=== PATIENT | female | born 1940 | race Hispanic/Latino ===

== ENCOUNTER 2016-11-03 08:00 | Inpatient (IN) | payer MEDICARE ==
[2016-11-03 08:08] VITALS: BMI 34.3
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
[2016-11-03] MEDS ORDERED: Vancomycin 1gm in NS 250ml 250 ML IVPB STA (08:47)
[2016-11-03 09:13] LABS: ADD MANUAL DIFF? NO
[2016-11-03 09:15] LABS: BASO # 0.04 K/mm3 (0.0-2.0); BASO % 1.2 % (0.0-3.0); EOS # 0.3 (0.0-0.7); EOS % 8.1 % (1.5-5.0); GRAN # 1.51 (1.4-6.5); GRAN % 47.1 % (50.0-68.0); LYMPH % 30.8 % (22.0-35.0); MEAN CELL VOLUME 92.7 fL (80.0-105.0); MEAN CORPUSCULAR HEMOGLOBIN 32.6 pg (25.0-35.0); MEAN CORPUSCULAR HGB CONC 35.2 g/dl (31.0-37.0); MEAN PLATELET VOLUME 9.4 fl (7.0-11.0); MONO # 0.4 (0.1-0.6); MONO % 12.8 % (1.0-6.0); PLATELET COUNT 88 10^3/uL (120.0-450.0); RED CELL DISTRIBUTION WIDTH 15.1 % (11.5-14.5); WHITE BLOOD COUNT 3.2 10^3/ul (4.5-11.0)
[2016-11-03 09:26] LABS: ALKALINE PHOSPHATASE 64 U/L (38-133); ALT/SGPT 26 U/L (7-56); AST/SGOT 38 U/L (15-39); BILIRUBIN,TOTAL 2.8 mg/dL (0.2-1.3); BLOOD UREA NITROGEN 35 mg/dL (7-21); CALCIUM 9.1 mg/dL (8.4-10.5); CARBON DIOXIDE 29 mmol/L (21-33); CHLORIDE 98 mmol/L (98-107); GFR AFRICAN-AMERICAN > 60; GLUCOSE,RANDOM 117 mg/dL (70-110); POTASSIUM 3.3 mmol/L (3.6-5.0); SODIUM 136 mmol/L (132-148); TOTAL PROTEIN 6.2 g/dL (5.8-8.3)
[2016-11-03 09:33] LABS: INR 1.11 (0.93-1.08); PARTIAL THROMBOPLASTIN TIME 28.2 Seconds (23.7-30.8)
[2016-11-03 09:38] LABS: TROPONIN I 0.04 ng/mL
[2016-11-03] MEDS ORDERED: Potassium Chloride 20 mEq ER Tab PO STA (10:18)
--- NOTE | 2016-11-03 11:25 | RAD ---
HISTORY: Cough. Technique: Single view portable semi erect @ 10:00 COMPARISON: 07/05/2016. FINDINGS: LUNGS: Pulmonary best congestion without evidence of pulmonary parenchymal abnormality. PLEURA: No significant pleural effusion identified, no pneumothorax apparent. CARDIOVASCULAR: Cardiomegaly, mild CHF. OSSEOUS STRUCTURES: No significant abnormalities. VISUALIZED UPPER ABDOMEN: Normal. OTHER FINDINGS: None. IMPRESSION: Acute CHF.
[2016-11-03] MEDS ORDERED: Influenza Vaccine 45 MCG/0.5 ml IM ONE (13:23)
[2016-11-03] MEDS ORDERED: Pneumococcal 23-Valent Vaccine IM ONE (13:23)
--- NOTE | 2016-11-03 14:32 | US ---
HISTORY: Leg pain and swelling. Evaluate for DVT PHYSICIAN(S): Praveen Augustine MD. TECHNIQUE: Duplex sonography and color-flow Doppler with graded compression were used to evaluate the deep venous systems of both lower extremities. The exam is somewhat limited by edema FINDINGS: The visualized deep venous systems of both lower extremities are sonographically normal and compressible. Normal wave forms and augmentation are seen. There is no sonographic evidence for deep venous thrombosis in the visualized segments of both lower extremities. IMPRESSION: No sonographic evidence for deep venous thrombosis in the visualized segments of both lower extremities.
[2016-11-03] MEDS ORDERED: cefTRIAXone 1 gm 100 ML IVPB SCH (18:00)
--- NOTE | 2016-11-03 18:28 | CARD ---
APPROVED REPORT EKG Measurement Heart [id number] <Conclusion> Sinus tachycardia with occasional premature ventricular complexes Left axis deviation Left ventricular hypertrophy with QRS widening Lateral infarct, age undetermined Abnormal ECG
[2016-11-03] MEDS: Insulin Reg-LOW-Coverage SC SCH (21:45)
[2016-11-03] MEDS: Piperacillin/Tazobact 3.375 gm 100 ML IVPB SCH (21:55)
[2016-11-03] MEDS: MethylPREDNISolone 40 mg Vial IVP SCH (21:56)
[2016-11-03] MEDS: Potassium Chloride 20 mEq ER Tab PO SCH (21:56)
[2016-11-03] MEDS: Tiotropium 18 mcg Cap For Inhalation IH SCH (21:56)
[2016-11-04] MEDS: Acetylcysteine 20% Inhal Soln (4ml) IH SCH ×3 (01:50→21:38)
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
--- NOTE | 2016-11-04 04:44 | CON ---
DATE: 11/03/2016 REFERRING PHYSICIAN: Dr. Rg. REASON FOR CONSULT: Chronic lung disease, cough, shortness of breath, lower extremity edema with adithya lulitis, history of cryptogenic cirrhosis. HISTORY OF PRESENT ILLNESS: This is a 76-year-old female with multiple medical issues, main of which is cryptogenic cirrhosis with portal hypertension, chronic lung disease, pulmonary hypertension, ivy ctant lower extremity edema and cellulitis, also has a severe cardiomyopathy with severe aortic steno sis, hypertension, diabetes, anemia, pancytopenia, thrombocytopenia, coronary artery disease, came in to Emergency Room with cough, shortness of breath and very lethargic, lower extremity diffuse erythe ma, swelling. No hemoptysis, no hematemesis, no hematuria reported. PAST MEDICAL HISTORY: Coronary artery disease, congestive heart failure secondary to severe aortic s tenosis, hypertension, chronic lung disease, diabetes, anemia, history of transfusion, hiatal hernia, depression, coronary artery disease, cardiac catheterization in the past, history of esophagitis, du odenitis, gastritis, recurrent cellulitis of lower extremity. ALLERGIES: None known. SOCIAL HISTORY: Nonsmoker, nondrinker. FAMILY HISTORY: No significant cardiopulmonary disease reported. MEDICATIONS: He is on Aldactone 25 mg twice a day, Dilaudid 0.25 mg q. 4 hours p.r.n., insulin cover age, potassium supplements, Lasix 40 mg twice a day, metoprolol tartrate 12.5 mg daily, Rocephin 1 gr am daily, Spiriva 1 capsule inhaled daily. REVIEW OF SYSTEMS: No headache. Has on and off epistaxis from the last couple of months. Cough, sh ortness of breath. No chest pain. Has increased abdominal girth and ascites. No abdominal pain. S ignificant leg edema, diffuse erythema, tender to touch. NEUROLOGIC: Awake, alert, but lethargic. PHYSICAL EXAMINATION: GENERAL: Sitting side of the bed, mild distress secondary to leg pain and shortness of breath. VITAL SIGNS: Temp is 98, heart rate is 98, respiratory rate is 22, blood pressure 114/49, pulse ox 9 6% on room air. HEENT: Moist mucous membranes. Small oral cavity. Crowded airway. NECK: Supple. No JVD. LUNGS: Has crackles at the bases, prolonged expiratory phase. HEART: S1 and S2. Positive murmur. ABDOMEN: Has ascites, abdominal wall edema. EXTREMITIES: Diffuse erythema, tender to touch, and swelling. NEUROLOGIC: Awake, alert, follows simple commands. LABORATORY DATA: Shows hemoglobin 10.2, hematocrit 39.0, WBC 3.2, platelet count is 88. INR 1.1, PT T is 28. Sodium 136, potassium 3.3, chloride 98, bicarbonate 29, BUN 35, creatinine 1.0, glucose is 117, calcium is 9.1, total bili 2.8, AST 38, ALT 26, alkaline phosphatase 64. LDH 756. Troponin is 0.04, proBNP 666, albumin is 3.1. Venous Doppler of lower extremity shows no DVT of the lower extrem ities. Chest x-ray done showed congestion and infiltrate. IMPRESSION AND PLAN: Chronic obstructive lung disease, cardiomyopathy with severe aortic stenosis, c ongestive heart failure, sleep apnea syndrome noncompliant with CPAP, pulmonary hypertension, crypto genic cirrhosis with pulmonary hypertension, ascites, lower extremity edema, may have cellulitis of b oth lower extremities, thrombocytopenia, esophagitis, duodenitis. I agree with Dr. Rg with the present management. Will add Zosyn covering cellulitis of the lower extremity. Increase Lasix 20 mg q. 8 hours. Inhaled bronchodilator. Solu-Medrol 20 mg q. 8 hours, CPAP while sleeping. Gastr ic prophylaxis, will get JON stockings large to lower extremity, cannot anticoagulate because of his tory of thrombocytopenia, cirrhotic, recurrent epistaxis. Follow up labs in the morning. Overall, p oor prognosis. Thank you and we will follow with you. Pablo Cantor MD cc: [id number] TT: 11/04/2016 04:43:44 Confirmation # [id number] Dictation # [id number] kn
[2016-11-04] MEDS: Piperacillin/Tazobact 3.375 gm 100 ML IVPB SCH ×3 (06:04→22:22)
[2016-11-04] MEDS: MethylPREDNISolone 40 mg Vial IVP SCH ×3 (06:04→22:19)
[2016-11-04] MEDS: Potassium Chloride 20 mEq ER Tab PO SCH ×3 (06:05→22:18)
[2016-11-04] MEDS: Pantoprazole 40 mg EC Tab PO SCH (06:05)
[2016-11-04 07:38] LABS: HEMATOCRIT 29.4 % (36.0-48.0); MEAN CELL VOLUME 92.7 fL (80.0-105.0); MEAN CORPUSCULAR HEMOGLOBIN 32.2 pg (25.0-35.0); MEAN CORPUSCULAR HGB CONC 34.7 g/dl (31.0-37.0); MEAN PLATELET VOLUME 9.4 fl (7.0-11.0); RED CELL DISTRIBUTION WIDTH 14.8 % (11.5-14.5); WHITE BLOOD COUNT 3.3 10^3/ul (4.5-11.0)
[2016-11-04 07:51] LABS: ALKALINE PHOSPHATASE 55 U/L (38-133); ALT/SGPT 22 U/L (7-56); AST/SGOT 39 U/L (15-39); BILIRUBIN,TOTAL 2.2 mg/dL (0.2-1.3); BLOOD UREA NITROGEN 32 mg/dL (7-21); CALCIUM 9.1 mg/dL (8.4-10.5); CARBON DIOXIDE 30 mmol/L (21-33); CHLORIDE 98 mmol/L (95-110); GFR AFRICAN-AMERICAN > 60; GLUCOSE,RANDOM 168 mg/dL (70-110); POTASSIUM 3.9 mmol/L (3.6-5.0); SODIUM 138 mmol/L (132-148); TOTAL PROTEIN 5.8 g/dL (5.8-8.3)
[2016-11-04] MEDS: Insulin Reg-LOW-Coverage SC SCH ×4 (08:18→22:07)
[2016-11-04] MEDS: Budesonide 0.5 mg/2 ml Inhal Susp UD IH SCH ×2 (08:43→21:37)
[2016-11-04] MEDS: Arformoterol 15 mcg/2 ml Inh Sol IH SCH ×2 (08:43→21:38)
[2016-11-04] MEDS ORDERED: Potassium Chloride 20 mEq ER Tab PO SCH (10:00)
--- NOTE | 2016-11-04 10:49 | CON ---
DATE: 11/04/2016 REASON FOR CONSULTATION: Cardiac evaluation, admitted with swelling of the leg and pain, history of coronary artery disease. BRIEF CLINICAL HISTORY: A 76-year-old female with a past medical history significant for congestive heart failure, cirrhosis of the liver, COPD, asthma, coronary artery disease. Admitted with a compla int of swelling of the leg and redness. Denies any chest pain, denies any shortness of breath, denie s any palpitation. PAST MEDICAL HISTORY: Significant for coronary artery disease, status post PTCA 2008, hypertension, hyperlipidemia, chronic venous stasis, chronic leg edema, COPD, cirrhosis and thrombocytopenia. PREVIOUS CARDIAC WORKUP: The patient had a cardiac catheterization and angioplasty in 04/2009, histor y of repeat echo last admission, ejection 65%-70%, aortic valve area 0.6 consistent with severe aorti c stenosis, but looks like moderate to severe, though valve area calculated 0.6, moderate stenosis by looks valve area with a calculated area , but it looks, at the most, moderate to severe aortic stenosis, diastolic dysfunction. Last admission, lengthy discussion was done for TAVR. The patient opted for medical treatment. Discussion done with the family and the sister. SOCIAL HISTORY: Denies smoking. Denies any history of alcohol abuse. CURRENT MEDICATIONS: The patient is taking at home spironolactone 25 mg, Spiriva, potassium chloride , metoprolol 12.5 and Lasix 40 three times a day. REVIEW OF SYSTEMS: As per HPI. PHYSICAL EXAMINATION: VITAL SIGNS: Temperature afebrile, heart rate 97, blood pressure 112/60. HEENT: PERRLA. Extraocular muscles intact. NECK: Supple. No carotid bruits. No thyromegaly. CHEST: Clear to auscultation. HEART: S1, S2 regular. ABDOMEN: Soft. EXTREMITIES: Clubbing, cyanosis negative. BLOOD WORKUP: WBC 3.3, hemoglobin 10.2, hematocrit 29.4, platelet count 77. Chemistry shows sodium 130, potassium 3.9, chloride , carbon dioxide 30, anion gap of 14, BUN 32, creatinine 1.0. Tota l bilirubin 2.2. BNP is 666, marginally increased. IMPRESSION: Cellulitis of lower extremity, thrombocytopenia, cirrhosis of the liver, hypoalbuminemia 2.9, mild, which was not present on admission yesterday, anemia, thrombocytopenia, coronary artery d isease, severe aortic stenosis. Refused transcatheter aortic valve replacement workup. Last echo, e jection fraction 65%-70% dated 10/12/2015, ejection fraction 65%-70%, grade II diastolic dysfunction, moderately calcified, mild to moderate aortic regurgitation, moderate to severe valvular aortic steno sis, peak gradient 76 mmHg. The patient's EKG yesterday showed sinus tachycardia with occasional premature atrial complex. RECOMMENDATIONS: Continue diuretics started by Dr. Cantor. Continue low-dose beta-kirby as blood pressures tolerated. Continue antibiotic. We will follow with you. We will get the lipid profile, TSH, hemoglobin A1c. Thank you, Dr. Rg, for providing us the opportunity in taking care of the patient. Clinically, ernie joaquin is not in heart failure. Probably, this leg edema is multifactorial secondary to cirrhosis, a scites, low albumin level. We will follow with you. Pablo Guillermo MD cc: [id number] TT: 11/04/2016 10:48:44 Confirmation # [id number] Dictation # [id number] en
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
[2016-11-04] MEDS: HYDROmorphone 0.5 mg/0.5 ml ISec IVP PRN ×2 (15:32→22:20)
[2016-11-04] MEDS: Clotrimazole/Betamethasone Cream(15 gm) TOP SCH (18:14)
--- NOTE | 2016-11-04 18:34 | PN ---
DATE: 11/04/2016 REFERRING PHYSICIAN: Dr. Rg SUBJECTIVE: The patient is lying in the bed, head at 45 degrees. Feels better. More smiling. Tole rated CPAP well. Decreased cough. Decreased shortness of breath. No nausea, no vomiting, no abdomi nal pain. Decreased leg swelling. Received Ming wraps on the lower extremity. OBJECTIVE: GENERAL: No acute distress. VITAL SIGNS: Temp is 98, heart rate is 85, respiratory rate is 18, blood pressure 119/52, pulse ox 9 6% on room air. HEENT: Moist mucous membranes. Crowded airway. Mallampati score is 4. NECK: Supple. No JVD. LUNGS: Has crackles at the bases, scattered rhonchi. HEART: S1 and S2. ABDOMEN: Soft, nontender, nondistended. EXTREMITIES: Decreased erythema, still has edema, but has decreased since yesterday. NEUROLOGIC: Awake, alert, follows simple command. MEDICATIONS: She is on Mucomyst 20% inhaled q.12 hours, Aldactone 25 mg twice a day, Brovana 15 mcg inhaled twice a day, Dilaudid 0.25 mg q.4 hours p.r.n., doxycycline 100 mg twice a day, insulin cover age, potassium 20 mEq q.8 hours, Lasix 80 mg IV q.8 hours, metoprolol tartrate 12.5 mg daily, Lotriso ne cream affected area twice a day, Protonix 40 mg daily, Pulmicort inhaled twice a day, Solu-Medrol 20 mg q.8 hours, Spiriva 1 capsule inhaled daily, Zosyn 3.375 grams q.8 hours. LABORATORY DATA: Shows hemoglobin 10.2, hematocrit 29.4, WBC 3.3, platelet is 77,000. Sodium 138, p otassium 3.9, chloride 98, bicarbonate 30, BUN 32, creatinine 1.0, glucose 168, calcium 9.1, total bi li 2.2, AST 39, ALT 22, alk phos is 55. Albumin is 2.9. MICROBIOLOGY: Blood culture has been negative. IMPRESSION AND PLAN: Cardiomyopathy with severe aortic stenosis, coronary artery disease, heart fail ure, chronic obstructive lung disease, sleep apnea syndrome, noncompliant with the continuous positiv e airway pressure but last night did use her continuous positive airway pressure though; pulmonary hy pertension, cryptogenic cirrhosis, portal hypertension, ascites, lower extremity recurrent edema and cellulitis, history of pancytopenia, esophagitis, duodenitis. Pulmonary point of view, well improved since yesterday. Continue continuous positive airway pressure. Continue intravenous and inhaled br onchodilator. Continue antibiotics. 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 Gastric prophylaxis. N o chemical deep venous thrombosis prophylaxis because of recurrent epistaxis and thrombocytopenia. F ollow up electrolytes in the morning. Fall precaution. Podiatry followup. Thank you and we will follow with you. Pablo Cantor MD cc: [id number] TT: 11/04/2016 18:33:39 Confirmation # [id number] Dictation # [id number] sn
--- NOTE | 2016-11-04 19:59 | PN ---
DATE: 11/04/2016 The patient is a 76-year-old female. The patient seen and examined on the bedside, sitting on the bedside, feeling a little bit better. Still having pain on the soles of the feet. Tolerated CPAP. Decreasing cough, decreasing shortness of breath. No nausea, no vomiting. No chest pain, no fever, no chills. Swelling of the legs is getting better. PHYSICAL EXAMINATION: VITAL SIGNS: Temperature 98, heart rate 85, respiratory rate 18, blood pressure 119/52, pulse oximetry 96% on room air. HEENT: Head normocephalic, atraumatic. Eyes: PERRLA. Extraocular muscles intact. Conjunctivae pink. Eyelids unremarkable. Nose patent. Mucous membranes moist. NECK: Supple. No carotid bruit, no JVD, no thyromegaly. LUNGS: Have crackles at the bases, scattered rhonchi. HEART: S1 and S2 positive. ABDOMEN: Soft, nontender, no organomegaly. EXTREMITIES: Decreased erythema. Still edematous, but still warm and red, getting better slowly. NEUROLOGIC: The patient is awake, alert, follows simple commands, oriented x 3 , moving all 4 extremities. LABORATORIES: Hemoglobin 10.2, hematocrit 29.4, white blood cells 3.3, platelets 77. Sodium 138, potassium 3.9, BUN 32, creatinine 1.0, glucose noted Total bilirubin 2.2, AST 39, ALT 22. ASSESSMENT AND PLAN: The patient is a 76-year-old lady, cardiomyopathy with severe aortic stenosis, coronary artery disease, heart failure, chronic obstructive lung disease, sleep apnea syndrome, noncompliant with continuous positive pressure at home. Last night, she used that, feeling better. Cryptogenic cirrhosis, portal hypertension, ascites, lower extremity edema, cellulitis of the legs, peripheral neuropathy, pancytopenia, esophagitis, duodenitis, gastritis. The patient is improving very slowly. Podiatry is on the case. Pulmonary and work force advisor is on the case. Continue same intravenous and inhaled bronchodilators. Continue antibiotics. Gastrointestinal and deep venous thrombosis prophylaxis. The patient is seen by the podiatry, Dr. Richard, [place]. Continue acetylcysteine, Aldactone, Lasix, aspirin, Dilaudid for leg pain, doxycycline, metoprolol, clotrimazole/ betamethasone locally, Protonix for gastrointestinal prophylaxis, methylprednisolone lower doses from by Khushbu Turner, got dose of vancomycin and piperacillin-tazobactam. Will follow up. Kristin Rg MD cc: [id number] TT: 11/04/2016 19:58:11 Confirmation # [id number] Dictation # [id number] en MTDD
[2016-11-04] MEDS: Tiotropium 18 mcg Cap For Inhalation IH SCH (22:21)
[2016-11-05] MEDS: Potassium Chloride 20 mEq ER Tab PO SCH ×3 (05:48→21:06)
[2016-11-05] MEDS: Pantoprazole 40 mg EC Tab PO SCH (05:49)
[2016-11-05] MEDS: Piperacillin/Tazobact 3.375 gm 100 ML IVPB SCH ×3 (05:49→21:03)
[2016-11-05] MEDS: MethylPREDNISolone 40 mg Vial IVP SCH ×3 (05:49→21:04)
[2016-11-05] MEDS: Arformoterol 15 mcg/2 ml Inh Sol IH SCH ×2 (07:46→21:00)
[2016-11-05] MEDS: Acetylcysteine 20% Inhal Soln (4ml) IH SCH ×2 (07:47→21:00)
[2016-11-05] MEDS: Budesonide 0.5 mg/2 ml Inhal Susp UD IH SCH ×2 (07:47→21:00)
[2016-11-05] MEDS: Insulin Reg-LOW-Coverage SC SCH ×4 (08:21→23:29)
[2016-11-05] MEDS: HYDROmorphone 0.5 mg/0.5 ml ISec IVP PRN ×2 (08:25→14:01)
--- NOTE | 2016-11-05 08:37 | CP.PCM.PN ---
<SandeepJerry - Last Filed: 11/05/16 09:53> Subjective - Date & Time of Evaluation Date of Evaluation: 11/05/16 Time of Evaluation: 07:40 - Subjective Subjective: 76 year old female with history of bilateral lower extremity cellulitis seen at bedside concerning bilateral lower extremity cellulitis. Patient states that she has mild pain in her legs, but notes her overall conditon has improved as there is un remakrable redness, and a large decrease in her leg swelling. Pt has new pedal compliant is mayes in the "balls of her feet" as she attempt to walk. She grades this pain as a 4/10 at peak levels localized to the metatarsal head area. She has no new pedal complaints a this time. She denies nausea, fever, chills, shortness of breath, chest pain. Objective - Vital Signs/Intake and Output Vital Signs (last 24 hours): Temp Pulse Resp BP Pulse Ox 97.8 F 60 20 101/54 L 98 11/05/16 06:54 11/05/16 06:54 11/05/16 06:54 11/05/16 06:54 11/05/16 06:54 Intake and Output: 11/05/16 11/05/16 06:59 18:59 Intake Total 540 Output Total 800 Balance -260 - Medications Medications: Current Medications Acetylcysteine (Acetylcysteine 20%) 4 ml IH [id number] [facility] Last Admin: 11/05/16 07:47 Dose: 4 ml Arformoterol Tartrate (Brovana) 15 mcg IH [id number] [facility] Last Admin: 11/05/16 07:46 Dose: 15 mcg Betamethasone/Clotrimazole (Lotrisone) 0 gm TOP BID [facility] Last Admin: 11/04/16 18:14 Dose: Not Given Budesonide (Pulmicort Respules) 0.5 mg IH [id number] [facility] Last Admin: 11/05/16 07:47 Dose: 0.5 mg Furosemide (Lasix) 80 mg IVP Q8 [facility] Last Admin: 11/05/16 05:49 Dose: Not Given Hydromorphone HCl (Dilaudid) 0.25 mg IVP Q4H PRN PRN Reason: Pain, moderate (4-7) Last Admin: 11/05/16 08:25 Dose: 0.25 mg Piperacillin Sod/Tazobactam Sod (Zosyn 3.375 In Ns 100ml) 100 mls @ 200 mls/hr IVPB Q8 [facility] PRN Reason: Protocol Stop: 11/10/16 22:01 Last Admin: 11/05/16 05:49 Dose: 200 mls/hr Doxycycline Hyclate 100 mg/ (Sodium Chloride) 100 mls @ 100 mls/hr IVPB Q12 [facility]LEXANDRA PRN Reason: Protocol Stop: 11/11/16 10:01 Last Admin: 11/04/16 22:21 Dose: 100 mls/hr Insulin Human Regular (Humulin R Low) 0 units SC ACHS [facility] PRN Reason: Protocol Last Admin: 11/05/16 08:21 Dose: 1 units Methylprednisolone (Solu-Medrol) 20 mg IVP Q8 [facility] Last Admin: 11/05/16 05:49 Dose: 20 mg Metoprolol Tartrate (Lopressor) 12.5 mg PO DAILY [facility] Last Admin: 11/04/16 09:39 Dose: 12.5 mg Pantoprazole Sodium (Protonix Ec Tab) 40 mg PO 0630 [facility] Last Admin: 11/05/16 05:49 Dose: 40 mg Potassium Chloride (K-Dur 20 Meq Er Tab) 20 meq PO Q8 [facility] Last Admin: 11/05/16 05:48 Dose: 20 meq Spironolactone (Aldactone) 25 mg PO BID [facility] Last Admin: 11/04/16 18:12 Dose: 25 mg Tiotropium [place] (Spiriva) 18 mcg IH HS [facility] Last Admin: 11/04/16 22:21 Dose: 18 mcg - Labs Labs: 11/04/16 07:00 11/04/16 07:00 PT 12.0 Seconds (9.9-11.8) H 11/03/16 09:12 INR 1.11 (0.93-1.08) H 11/03/16 09:12 APTT 28.2 Seconds (23.7-30.8) 11/03/16 09:12 - Constitutional Appears: Well, Non-toxic, No Acute Distress - Extremities Exam Additional comments: VASC: lightly palpable pedal pulses b/l, TG wnl, CFT < 3 sec to all digits NEURO: grossly diminished DERM: +2 pitting edema of b/l legs. Absence of erythema of legs b/l. No open lesions, no fluctuance, no purulence, no malodor. Plantar 3rd metatarsal head region hyperkeratotic lesions noted, right greater than left, with pain on direct palpation not on lateral compression. MUSC: mild pain to palpation of legs b/l - Neurological Exam Neurological Exam: Alert, Awake, Oriented x3 - Psychiatric Exam Psychiatric exam: Normal Affect, Normal Mood Assessment and Plan - Assessment and Plan (Free Text) Assessment: 76 year old female with 1) bilateral lower extremity cellulitis 2) plantar forefoot callouses Plan: Patient evaluated and treated at bedside with attending Dr. Neal present. Labs and chart reviewed; afebrile. WBC 6.3 Applied DSD and PEGGY to b/l lower extremities, Lotrisone cream not available at this time. Continue IV abx as per ID Podiatry will continue to monitor while patient remains in house <Timothy Neal - Last Filed: 11/08/16 12:18> Objective - Vital Signs/Intake and Output Vital Signs (last 24 hours): Temp Pulse Resp BP Pulse Ox 98.5 F 88 17 110/60 97 11/08/16 06:00 11/08/16 09:22 11/08/16 06:00 11/08/16 09:22 11/08/16 06:00 - Medications Medications: Current Medications Acetylcysteine (Acetylcysteine 20%) 4 ml IH [id number] [facility] Last Admin: 11/08/16 09:59 Dose: 4 ml Arformoterol Tartrate (Brovana) 15 mcg IH [id number] [facility] Last Admin: 11/08/16 09:59 Dose: 15 mcg Betamethasone/Clotrimazole (Lotrisone) 0 gm TOP BID [facility] Last Admin: 11/08/16 09:23 Dose: 1 applic Budesonide (Pulmicort Respules) 0.5 mg IH [id number] [facility] Last Admin: 11/08/16 09:59 Dose: 0.5 mg Furosemide (Lasix) 80 mg IVP Q8 [facility] Last Admin: 11/08/16 06:32 Dose: Not Given Hydromorphone HCl (Dilaudid) 0.25 mg IVP Q4H PRN PRN Reason: Pain, moderate (4-7) Last Admin: 11/08/16 04:08 Dose: 0.25 mg Piperacillin Sod/Tazobactam Sod (Zosyn 3.375 In Ns 100ml) 100 mls @ 200 mls/hr IVPB Q8 [facility]DR[facility] PRN Reason: Protocol Stop: 11/10/16 22:01 Last Admin: 11/08/16 06:25 Dose: 200 mls/hr Doxycycline Hyclate 100 mg/ (Sodium Chloride) 100 mls @ 100 mls/hr IVPB Q12 [facility]DR[facility] PRN Reason: Protocol Stop: 11/11/16 10:01 Last Admin: 11/08/16 10:16 Dose: 100 mls/hr Insulin Human Regular (Humulin R Low) 0 units SC ACHS [facility]LEXANDRA PRN Reason: Protocol Last Admin: 11/08/16 12:11 Dose: 2 units Methylprednisolone (Solu-Medrol) 20 mg IVP Q12 [facility] Last Admin: 11/08/16 09:24 Dose: 20 mg Metoprolol Tartrate (Lopressor) 12.5 mg PO DAILY [facility] Last Admin: 11/08/16 09:22 Dose: 12.5 mg Pantoprazole Sodium (Protonix Ec Tab) 40 mg PO 0630 [facility] Last Admin: 11/08/16 06:24 Dose: 40 mg Potassium Chloride (K-Dur 20 Meq Er Tab) 20 meq PO Q8 [facility] Last Admin: 11/08/16 06:24 Dose: 20 meq Spironolactone (Aldactone) 25 mg PO BID [facility] Last Admin: 11/08/16 09:21 Dose: 25 mg Tiotropium [place] (Spiriva) 18 mcg IH HS [facility] Last Admin: 11/07/16 22:23 Dose: Not Given - Labs Labs: 11/07/16 06:00 11/08/16 06:30 PT 12.0 Seconds (9.9-11.8) H 11/03/16 09:12 INR 1.11 (0.93-1.08) H 11/03/16 09:12 APTT 28.2 Seconds (23.7-30.8) 11/03/16 09:12 Attending/Attestation - Attestation I have personally seen and examined this patient.: Yes I have fully participated in the care of the patient.: Yes I have reviewed all pertinent clinical information, including history, physical exam and plan: Yes
[2016-11-05 09:34] LABS: ADD MANUAL DIFF? NO
[2016-11-05 09:50] LABS: BILIRUBIN,TOTAL 1.5 mg/dL (0.2-1.3); CALCIUM 8.7 mg/dL (8.4-10.5); MAGNESIUM 1.8 mg/dL (1.7-2.2); PHOSPHOROUS 3.4 mg/dL (2.5-4.5); TOTAL PROTEIN 5.5 g/dL (5.8-8.3)
[2016-11-05 09:53] LABS: BASO # 0.01 K/mm3 (0.0-2.0); BASO % 0.2 % (0.0-3.0); GRAN # 5.52 (1.4-6.5); GRAN % 87.6 % (50.0-68.0); HEMATOCRIT 26.6 % (36.0-48.0); LYMPH # 0.4 (1.2-3.4); LYMPH % 6.2 % (22.0-35.0); MEAN CELL VOLUME 93.3 fL (80.0-105.0); MEAN CORPUSCULAR HEMOGLOBIN 32.6 pg (25.0-35.0); MEAN PLATELET VOLUME 9.6 fl (7.0-11.0); MONO # 0.4 (0.1-0.6); PLATELET COUNT 74 10^3/uL (120.0-450.0); RED CELL DISTRIBUTION WIDTH 14.9 % (11.5-14.5); WHITE BLOOD COUNT 6.3 10^3/ul (4.5-11.0)
[2016-11-05] MEDS: Clotrimazole/Betamethasone Cream(15 gm) TOP SCH ×2 (09:58→17:16)
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
--- NOTE | 2016-11-05 19:30 | PN ---
DATE: 11/05/2016 REFERRING PHYSICIAN: Dr. Rg SUBJECTIVE: The patient is lying in the bed, head at 45 degrees, sleepy, arousable. Claims that cou ld not sleep well last night. No headache, no rhinitis. Mild cough. No nausea, no vomiting, no alec rrhea. Still has leg swelling and erythema, has PEGGY wraps of lower extremities. OBJECTIVE: GENERAL: No acute distress. VITAL SIGNS: Temperature is 98, heart rate is 79, respiratory rate is 18, blood pressure 105/50, pul se ox 95% on 2 liters nasal cannula. HEENT: Moist mucous membrane. Crowded airway. NECK: Supple. No JVD. LUNGS: Have a fair airflow with scattered rhonchi. HEART: S1 and S2. ABDOMEN: Soft, nontender. No organomegaly. EXTREMITIES: There is edema, erythema, has PEGGY wraps on lower extremities. NEUROLOGIC: Sleepy, arousable, follows simple command. MEDICATIONS: She is on Mucomyst 20% inhaled twice a day, Aldactone 25 mg twice a day, Brovana 15 mcg inhaled twice a day, Dilaudid 0.25 mg q. 4 hours p.r.n., doxycycline 100 mg twice a day, insulin cov erage, potassium 20 mEq q. 8 hours, Lasix 80 mg IV q. 8 hours, metoprolol tartrate 12.5 mg daily, Lot risone affected area twice a day, Protonix 40 mg daily, Pulmicort inhaled twice a day, Solu-Medrol 20 mg q. 8 hours, Spiriva 1 capsule inhaled daily, Zosyn 3.375 grams q. 8 hours. LABORATORY DATA: Shows hemoglobin 9.3, hematocrit 26.6, WBC 6.3, platelet count is 74. Sodium 133, potassium 4.0, chloride 96, bicarbonate 29, BUN 40, creatinine 1.2, glucose , calcium 8.7, phosp horus 3.4, magnesium 1.8, total bilirubin 1.5, AST 32, ALT 25, alkaline phosphatase is 44, albumin is 2.7. TSH . MICROBIOLOGY: Blood culture has been negative. IMPRESSION AND PLAN: Cardiomyopathy with severe aortic stenosis, coronary artery disease, heart fail ure, chronic obstructive lung disease, sleep apnea syndrome, noncompliant with CPAP usually, pulmonar y hypertension, cryptogenic cirrhosis, portal hypertension, ascites, lower extremity recurrent edema and cellulitis, pancytopenia, esophagitis, duodenitis. Pulmonary point of view, encourage BiPAP use. Continue bronchodilator. Keep head elevated at 45 degrees. Continue diuretics. Continue potassiu m. Follow up electrolytes. Decrease Solu-Medrol to 20 q. 12 hours. Follow up labs in the morning. Thank you and we will follow with you. Pablo Cantor MD cc: [phone] TT: 11/05/2016 19:30:17 Confirmation # [id number] Dictation # [id number] en
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
--- NOTE | 2016-11-05 20:10 | PN ---
DATE: 11/05/2016 The patient is in room 377, bed 2. REASON FOR CONSULTATION AND FOLLOWUP: Swelling of legs, history of coronary artery disease. HISTORY OF PRESENT ILLNESS: A 76-year-old female with past medical history significant for congestiv e heart failure, cirrhosis of liver, COPD, asthma, coronary artery disease, admitted with complaint o f swelling of the legs and redness. Denies any chest pain, shortness of breath, or palpitation. The patient now lying flat and still complains of pain in the legs. Denies chest pain or palpitation. PHYSICAL EXAMINATION: VITAL SIGNS: Blood pressure 105/50, respirations 18, pulse 79, temperature 97.7. HEAD: Normocephalic. EYES: Pupils normal. Conjunctivae are slightly pale. NECK: JVP low. Carotids equal. THORAX: AP diameter normal. LUNGS: Clear. CARDIOVASCULAR: S1, S2, systolic murmur, no rub. ABDOMEN: Soft, nontender. Bowel sounds normal. EXTREMITIES: The patient had legs wrapped up to make edema of legs improve. There is no clubbing, n o cyanosis. LABORATORY DATA: Shows WBC 6.3, hemoglobin 9.3, hematocrit 26.6, platelets 74. Sodium 133, potassiu m 4.0, BUN 40, creatinine 1.2, random glucose 155, phosphorous 3.4, calcium 8.7, magnesium 1.8. AST, ALT normal. Total protein 5.5, albumin 2.7. TSH 0.45. DIAGNOSES: Cellulitis of lower extremity, thrombocytopenia, cirrhosis of liver, hypoalbuminemia, ane tomasz, coronary artery disease, severe aortic stenosis. On the last echo, ejection fraction was 65%-70% . Echo was done on 10/12/2015, grade II diastolic dysfunction, moderately calcified, mild to moderate aortic regurgitation, moderate to severe valvular aortic stenosis, peak gradient 76 mmHg. RECOMMENDATION AND PLAN: The patient previously had refused transcatheter aortic valve replacement. Will continue spironolactone 25 b.i.d., doxycycline hyclate 100 mg IV q. 12 hours, potassium 20 mEq q. 8 hours, furosemide 80 IV q. 8 hours, Protonix 40 daily, Solu-Medrol 20 mg IV q. 12 hours, piperac illin, tazobactam 3.375 mg IV, grams IV q. 8 hours. We will continue this therapy and we will follow with you. Pablo Shah MD cc: [id number] TT: 11/05/2016 20:10:02 Confirmation # [id number] Dictation # [id number] rn
[2016-11-05] MEDS: Tiotropium 18 mcg Cap For Inhalation IH SCH (22:25)
[2016-11-06] MEDS: Potassium Chloride 20 mEq ER Tab PO SCH ×3 (05:45→22:40)
[2016-11-06] MEDS: Piperacillin/Tazobact 3.375 gm 100 ML IVPB SCH ×3 (05:46→22:42)
[2016-11-06] MEDS: Pantoprazole 40 mg EC Tab PO SCH (05:46)
[2016-11-06] MEDS: Arformoterol 15 mcg/2 ml Inh Sol IH SCH ×2 (07:33→20:45)
[2016-11-06] MEDS: Budesonide 0.5 mg/2 ml Inhal Susp UD IH SCH ×2 (07:33→20:45)
[2016-11-06] MEDS: Acetylcysteine 20% Inhal Soln (4ml) IH SCH ×2 (07:34→20:45)
[2016-11-06] MEDS: Insulin Reg-LOW-Coverage SC SCH ×4 (08:19→22:40)
[2016-11-06 08:34] LABS: BILIRUBIN,TOTAL 1.5 mg/dL (0.2-1.3); CALCIUM 8.9 mg/dL (8.4-10.5); MAGNESIUM 1.9 mg/dL (1.7-2.2); PHOSPHOROUS 3.3 mg/dL (2.5-4.5); POTASSIUM 3.7 mmol/L (3.6-5.0); TOTAL PROTEIN 5.7 g/dL (5.8-8.3)
--- NOTE | 2016-11-06 09:32 | PN ---
DATE: 11/06/2016 The patient is in room 377, bed 2. REASON FOR CONSULTATION AND FOLLOWUP: Swelling of legs, history of coronary artery disease. HISTORY OF PRESENT ILLNESS: A 76-year-old female with a past medical history significant for congest magalis heart failure, cirrhosis of liver, COPD, asthma, coronary artery disease. Admitted with complain t of swelling of legs and redness of the legs. The patient denies any chest pain, shortness of breat h. The patient lying comfortably, without cardiac symptoms. PHYSICAL EXAMINATION: VITAL SIGNS: Blood pressure 91/54, respirations 19, pulse 86, temperature 97.7. HEAD: Normocephalic. EYES: Pupils normal. Conjunctivae slightly pale. NECK: JVP low. Carotid equal. THORAX: AP diameter normal. LUNGS: Clear. CARDIOVASCULAR: S1 and S2, ejection systolic murmur grade III/. No rub. ABDOMEN: Soft, no tenderness, no organomegaly. EXTREMITIES: No clubbing, no cyanosis. Edema of legs is getting less. LABORATORY DATA: WBC 6.3, hemoglobin 9.3, hematocrit 26.6, platelets 74. Sodium 135, potassium 3.7, BUN 47, creatinine 1.2, random glucose 130. Calcium, phosphorus, magnesium normal. Total bilirubin 1.5. AST, ALT normal. Total protein 5.7, albumin 2.9. DIAGNOSES: Cellulitis of lower extremities, thrombocytopenia, cirrhosis of liver, hypoalbuminemia, a nemia, coronary artery disease, severe aortic stenosis. Echo on 10/12/2015 showed severe aortic steno sis, grade II diastolic dysfunction, mild to moderate aortic regurgitation, moderate to severe valvul ar aortic stenosis, peak gradient 76 mmHg. PLAN: The patient's edema in legs is improving with present therapy. The patient previously had ref used transcatheter aortic valve replacement. Continue Aldactone 25 b.i.d., vibramycin 100 mg q. 12 h ours, potassium 20 mEq p.o. q. 8 hours, furosemide 80 mg q. 8 hours, metoprolol tartrate 12.5 mg p.o. daily, Protonix 40 daily, Solu-Medrol 20 mg IV q. 12 hours, piperacillin/tazobactam 3.375 gram IV q. 8 hours. We will follow with you. Pablo Shah MD cc: [id number] TT: 11/06/2016 09:30:52 Confirmation # [id number] Dictation # [id number] en
[2016-11-06] MEDS: MethylPREDNISolone 40 mg Vial IVP SCH ×2 (10:43→22:41)
[2016-11-06] MEDS: Clotrimazole/Betamethasone Cream(15 gm) TOP SCH ×2 (10:44→18:15)
--- NOTE | 2016-11-06 11:22 | PN ---
DATE: 11/06/2016 The patient is in bed. No acute distress, nontoxic. PHYSICAL EXAMINATION: VITAL SIGNS: Temperature is 97, blood pressure is 91/50, respiratory rate of 16. HEENT: Unremarkable. NECK: Supple. LUNGS: Decreased breath sounds. HEART: Normal S1, S2. ABDOMEN: Soft, nontender. LABORATORY DATA: Reveals the patient's white count is 6.3, hemoglobin 9, platelets of 74. Chemistri es reveal the BUN is 47, creatinine of 1.2. Blood cultures are negative. ASSESSMENT AND PLAN: This is a 76-year-old with sepsis secondary to bilateral lower extremity skin a nd skin soft tissue infection and bilateral lower extremity cellulitis, hypertension, diabetes, chron ic obstructive pulmonary disease, coronary artery disease, depression on doxycycline, on Zosyn day #3 . workup still pending. Review of the orders reveals the doxycycline and Zosyn to be active. Abram Benitez MD cc: [id number] TT: 11/06/2016 11:21:07 Confirmation # [id number] Dictation # [id number] mn
[2016-11-06] MEDS: HYDROmorphone 0.5 mg/0.5 ml ISec IVP PRN ×2 (14:15→22:39)
--- NOTE | 2016-11-06 18:54 | PN ---
DATE: 11/06/2016 REFERRING PHYSICIAN: Dr. Rg. SUBJECTIVE: She is out of bed to chair. Her [id number] is at the bedside. Night was unremarkabl e, did not use CPAP. No headaches, no rhinitis, mild cough. No nausea, no vomiting, no diarrhea. D ecreased leg swelling and leg edema. Has Ming wraps of the lower extremities. OBJECTIVE: GENERAL: In no acute distress. VITAL SIGNS: Temp is 98, heart rate is 90, respiratory rate is 20, blood pressure 114/46, pulse ox 9 7% on 2 liter nasal cannula. HEENT: Moist mucous membranes. Crowded airway. NECK: Supple. No JVD. LUNGS: Has a better airflow with a few rhonchi. HEART: S1, S2 with murmur. ABDOMEN: Soft, nontender. No organomegaly. EXTREMITIES: Decreased leg edema, decreased erythema, has Ming wraps. NEUROLOGIC: Awake, alert, follows simple commands. MEDICATIONS: The patient is on Acetylcysteine 20% 4 mL inhaled twice a day, Aldactone 25 mg twice a day, Brovana 15 mcg inhaled twice a day, Dilaudid 0.25 mg q.4 hours p.r.n., doxycycline 100 mg twice a day, potassium 20 mEq q.8 hours, Lasix 80 mg IV q.8 hours, metoprolol tartrate 12.5 mg daily, Lotri sone cream at affected area twice a day, Protonix 40 mg daily, Pulmicort inhaled twice a day, Solu-Me drol is at 20 mg q.12 hours, Spiriva 1 capsule inhaled daily, Zosyn 3.375 grams IV q.8 hours. LABORATORY DATA: Reviewed and noted. Sodium 135, potassium 3.7, chloride 96, bicarbonate 32, BUN 47 , creatinine 1.2, glucose 130, calcium is 8.9, phosphorus 3.3, magnesium 1.9, total bilirubin 1.5, T 34, ALT 23, alkaline phosphatase is 54, albumin is 2.9. Microbiology: Blood cultures have been no growth. IMPRESSION AND PLAN: Cardiomyopathy with severe aortic stenosis, coronary artery disease, heart fail ure, chronic obstructive lung disease, sleep apnea syndrome, noncompliant with CPAP, pulmonary hypert ension, cryptogenic cirrhosis, portal hypertension, ascites, lower extremity cellulitis, edema, pancy topenia, esophagitis, duodenitis and gastritis. I spoke to the patient in detail, who spoke about he art disease and its natural history; prevention of exacerbation. I urged her to be compliant with th e medications and with fluid restriction. Will encourage CPAP use. Keep head elevated at 45 degree. Antibiotics as per infectious disease. Continue diuretics. IV and inhaled bronchodilator. Gastri c prophylaxis. High risk for DVT; cannot place SCDs because of cellulitis and cannot use chemical pr ophylaxis because of thrombocytopenia, recurrent nasal epistaxis. Follow up labs in the [facility]. Thank you and will follow with you. Pablo Cantor MD cc: [phone] TT: 11/06/2016 18:53:51 Confirmation # [id number] Dictation # [id number] dn
--- NOTE | 2016-11-06 20:34 | PN ---
DATE: 11/06/2016 SUBJECTIVE: The patient was examined at the bedside. Her mother in law was sitting on the bedside also. Was complaining about feet pain and leg pain. No fever, no chills, no nausea, vomiting, or diarrhea. No hematuria or hematochezia. No headache, no dizziness. No chest pain, no palpitations, no shortness of breath. PHYSICAL EXAMINATION: VITAL SIGNS: Temperature 97.7, pulse 90, blood pressure 120/80 , respiratory rate 19. HEAD: Normocephalic, atraumatic. EYES: PERRLA. Extraocular muscles are intact. Conjunctivae pink. Eyelids unremarkable. Nose patent. Mucous membranes moist. NECK: Supple. No carotid bruit, JVD or thyromegaly. CHEST: Bilaterally symmetrical. HEART: S1, S2 positive. LUNGS: Clear to auscultation. ABDOMEN: Soft. Bowel sounds positive. No organomegaly. EXTREMITIES: Has dressings. NEUROLOGIC: The patient is awake, alert and moving all 4 extremities. No focal deficits. MEDICATIONS: Aldactone, Brovana, Dilaudid, doxycycline, insulin, K-Dur, Lasix , Lopressor, Clotrimazole, Protonix, Pulmicort, Solu-Medrol, Spiriva, Tazobactam , which is Zosyn. LABORATORY DATA: We do not have labs today, but I reviewed old labs, but we have a glucose of 184 and 191. Sodium 137, potassium 3.7, BUN 47, creatinine 1.2, total bilirubin 1.5. ASSESSMENT AND PLAN: The patient is a 76-year-old lady with anemia, diabetes mellitus, abnormal liver function tests, seen by infectious disease, Dr. Benitez; has sepsis secondary to bilateral lower extremity skin and soft tissue infection, bilateral lower extremity cellulitis, hypertension, diabetes mellitus, chronic obstructive pulmonary disease, coronary artery disease, depression, on doxycycline and Zosyn day 3; seen by the [employer] and has cirrhosis of the liver, hyperalbuminemia, coronary artery disease, severe aortic stenosis. Cellulitis and edema of the leg is improving. Continue Aldactone, furosemide, metoprolol, Protonix for GI prophylaxis. The patient has chronic obstructive pulmonary disease, asthma, obstructive sleep apnea, was by Dr. Cantor. Podiatry is on the case. Has cardiomegaly with severe aortic stenosis, noncompliant with CPAP, pulmonary hypertension, pancytopenia, history of ascites, portal hypertension, and recent edema and cellulitis of the legs. GI prophylaxis. Repeat labs. Will followup. Kristin Rg MD cc: [id number] TT: 11/06/2016 20:33:46 Confirmation # [id number] Dictation # [id number] nan CHARLES
[2016-11-06] MEDS: Tiotropium 18 mcg Cap For Inhalation IH SCH (22:42)
[2016-11-07 07:13] LABS: MEAN CELL VOLUME 95.4 fL (80.0-105.0); MEAN CORPUSCULAR HEMOGLOBIN 31.7 pg (25.0-35.0); MEAN CORPUSCULAR HGB CONC 33.2 g/dl (31.0-37.0); MEAN PLATELET VOLUME 8.9 fl (7.0-11.0); RED CELL DISTRIBUTION WIDTH 15.2 % (11.5-14.5); WHITE BLOOD COUNT 5.1 10^3/ul (4.5-11.0)
[2016-11-07 07:14] LABS: ALB/GLOB RATIO 1.1 (1.1-1.8); ALKALINE PHOSPHATASE 55 U/L (38-133); ALT/SGPT 29 U/L (7-56); AST/SGOT 41 U/L (15-39); BLOOD UREA NITROGEN 46 mg/dL (7-21); CALCIUM 9.2 mg/dL (8.4-10.5); CARBON DIOXIDE 31 mmol/L (21-33); CHLORIDE 96 mmol/L (98-107); GFR AFRICAN-AMERICAN > 60; GLUCOSE,RANDOM 148 mg/dL (70-110); POTASSIUM 4.4 mmol/L (3.6-5.0); SODIUM 137 mmol/L (132-148); TOTAL PROTEIN 6.4 g/dL (5.8-8.3)
[2016-11-07] MEDS: Budesonide 0.5 mg/2 ml Inhal Susp UD IH SCH ×2 (07:28→19:54)
[2016-11-07] MEDS: Arformoterol 15 mcg/2 ml Inh Sol IH SCH ×2 (07:28→19:54)
[2016-11-07] MEDS: Acetylcysteine 20% Inhal Soln (4ml) IH SCH ×2 (07:28→19:54)
[2016-11-07] MEDS: Potassium Chloride 20 mEq ER Tab PO SCH ×3 (07:47→22:20)
[2016-11-07] MEDS: Piperacillin/Tazobact 3.375 gm 100 ML IVPB SCH ×3 (07:47→22:24)
[2016-11-07] MEDS: Pantoprazole 40 mg EC Tab PO SCH (07:47)
[2016-11-07] MEDS: Insulin Reg-LOW-Coverage SC SCH ×3 (08:18→16:22)
[2016-11-07] MEDS: MethylPREDNISolone 40 mg Vial IVP SCH ×2 (09:23→22:21)
[2016-11-07] MEDS: Clotrimazole/Betamethasone Cream(15 gm) TOP SCH ×2 (10:45→17:02)
--- NOTE | 2016-11-07 11:11 | CP.PCM.PN ---
<Genaro Kenney - Last Filed: 11/07/16 11:23> Subjective - Date & Time of Evaluation Date of Evaluation: 11/07/16 Time of Evaluation: 10:30 - Subjective Subjective: 76 year old female patient was seen at bedside with attending Dr. Garcia concerning cellilitis to bilateral lower extremities. Patient was resting well in bed with no report of acute overnight distress. Patient states that the pain to bilateral legs have decreased a lot, and is able to actively bend her knees now. She also mentions that the redness to legs have gotten better as well. Patient still complains of mild pain to the legs and plantar feet bilaterally. She denies nausea, fever, chills, shortness of breath, chest pain. Objective - Vital Signs/Intake and Output Vital Signs (last 24 hours): Temp Pulse Resp BP Pulse Ox 97.1 F L 84 20 125/57 L 99 11/07/16 06:00 11/07/16 06:00 11/07/16 06:00 11/07/16 07:47 11/07/16 06:00 Intake and Output: 11/07/16 11/07/16 06:59 18:59 Intake Total 540 Output Total 1300 Balance -760 - Medications Medications: Current Medications Acetylcysteine (Acetylcysteine 20%) 4 ml IH [id number] [facility] Last Admin: 11/07/16 07:28 Dose: 4 ml Arformoterol Tartrate (Brovana) 15 mcg IH [id number] [facility] Last Admin: 11/07/16 07:28 Dose: 15 mcg Betamethasone/Clotrimazole (Lotrisone) 0 gm TOP BID [facility] Last Admin: 11/07/16 10:45 Dose: 1 applic Budesonide (Pulmicort Respules) 0.5 mg IH [id number] [facility] Last Admin: 11/07/16 07:28 Dose: 0.5 mg Furosemide (Lasix) 80 mg IVP Q8 [facility] Last Admin: 11/07/16 07:47 Dose: 80 mg Hydromorphone HCl (Dilaudid) 0.25 mg IVP Q4H PRN PRN Reason: Pain, moderate (4-7) Last Admin: 11/06/16 22:39 Dose: 0.25 mg Piperacillin Sod/Tazobactam Sod (Zosyn 3.375 In Ns 100ml) 100 mls @ 200 mls/hr IVPB Q8 ALEXANDRA PRN Reason: Protocol Stop: 11/10/16 22:01 Last Admin: 11/07/16 07:47 Dose: 200 mls/hr Doxycycline Hyclate 100 mg/ (Sodium Chloride) 100 mls @ 100 mls/hr IVPB Q12 [facility]LEXANDRA PRN Reason: Protocol Stop: 11/11/16 10:01 Last Admin: 11/07/16 09:23 Dose: 100 mls/hr Insulin Human Regular (Humulin R Low) 0 units SC ACHS [facility]LEXANDRA PRN Reason: Protocol Last Admin: 11/07/16 08:18 Dose: Not Given Methylprednisolone (Solu-Medrol) 20 mg IVP Q12 [facility] Last Admin: 11/07/16 09:23 Dose: 20 mg Metoprolol Tartrate (Lopressor) 12.5 mg PO DAILY [facility] Last Admin: 11/07/16 09:23 Dose: 12.5 mg Pantoprazole Sodium (Protonix Ec Tab) 40 mg PO 0630 [facility] Last Admin: 11/07/16 07:47 Dose: 40 mg Potassium Chloride (K-Dur 20 Meq Er Tab) 20 meq PO Q8 [facility] Last Admin: 11/07/16 07:47 Dose: 20 meq Spironolactone (Aldactone) 25 mg PO BID [facility] Last Admin: 11/07/16 09:22 Dose: 25 mg Tiotropium [place] (Spiriva) 18 mcg IH HS [facility] Last Admin: 11/06/16 22:42 Dose: Not Given - Labs Labs: 11/07/16 06:00 11/07/16 06:00 PT 12.0 Seconds (9.9-11.8) H 11/03/16 09:12 INR 1.11 (0.93-1.08) H 11/03/16 09:12 APTT 28.2 Seconds (23.7-30.8) 11/03/16 09:12 - Constitutional Appears: Well, Non-toxic, No Acute Distress - Extremities Exam Additional comments: DERM: No open wound is noted. Mild erythema is noted to bilateral legs at the level of mid-calf around the legs. +2 pitting edema of b/l legs, mild diffuse erythema of legs b/l, no open lesions, no fluctuance, no purulence, no malodor Debrided hyperkeratotic callus was noted to plantar aspect of Right foot sub- met 1st and medial aspect of Left 1st metatarsal head. No erythema or sign of acute infection is noted from these areas. VASC: lightly palpable pedal pulses b/l, TG wnl, CFT < 3 sec to all digits NEURO: grossly diminished ORTHO: mild pain to palpation of legs b/l - Neurological Exam Neurological Exam: Alert, Awake, Oriented x3 - Psychiatric Exam Psychiatric exam: Normal Affect, Normal Mood - Skin Skin Exam: Normal Color, Warm Assessment and Plan - Assessment and Plan (Free Text) Assessment: 76 year old female patient presents with 1) bilateral lower extremity cellulitis 2) plantar forefoot calluses Plan: Patient evaluated and treated at bedside with attending Dr. Garcia present. Labs and chart reviewed; afebrile. WBC 5.1 Lotrisone cream applied to bilateral legs Applied DSD and PEGGY to b/l lower extremities Continue IV abx as per ID Podiatry will continue to monitor while patient remains in house <Belkis Garcia - Last Filed: 11/25/16 12:26> Objective - Vital Signs/Intake and Output Vital Signs (last 24 hours): Temp Pulse Resp BP Pulse Ox 98.5 F 76 20 106/56 L 95 11/11/16 06:00 11/11/16 09:45 11/11/16 06:00 11/11/16 16:32 11/11/16 06:00 - Labs Labs: 11/11/16 07:00 11/11/16 07:00 PT 12.0 Seconds (9.9-11.8) H 11/03/16 09:12 INR 1.11 (0.93-1.08) H 11/03/16 09:12 APTT 28.2 Seconds (23.7-30.8) 11/03/16 09:12 Attending/Attestation - Attestation I have personally seen and examined this patient.: Yes I have fully participated in the care of the patient.: Yes I have reviewed all pertinent clinical information, including history, physical exam and plan: Yes
--- NOTE | 2016-11-07 12:31 | PN ---
DATE: 11/07/2016 The patient in room ____, bed 2. REASON FOR CONSULTATION AND FOLLOWUP: Swelling of legs, history of coronary artery disease. HISTORY OF PRESENT ILLNESS: A 76-year-old female with past medical history significant for congestiv e heart failure, cirrhosis of liver, COPD, asthma, coronary artery disease, admitted with complaints of swelling of legs and redness of her legs. The patient denied any chest pain, shortness of breath. The patient lying comfortably without any cardiac symptoms. Her swelling of legs is gradually decr easing. PHYSICAL EXAMINATION: VITAL SIGNS: Blood pressure 125/57, respirations 20, pulse 84, temperature 97.1. HEAD: Normocephalic. EYES: Pupils normal. Conjunctivae slightly pale. NECK: JVP low. Carotid equal. THORAX: AP diameter normal. LUNGS: Clear. CARDIOVASCULAR: S1, S2, ejection systolic murmur grade III/. No rub. ABDOMEN: Soft, no tenderness, no organomegaly. EXTREMITIES: The patient had Ming bandage on both legs. Edema seemed to be decreasing. LABORATORY DATA: WBC 5.1, hemoglobin 10.3, hematocrit 31.0, platelets 91. Sodium 137, potassium 4.4 , BUN 46, creatinine 1.0, random sugar 291, total bilirubin 2.0, AST 41, ALT 29, total protein and al bumin normal. DIAGNOSES: Cellulitis of lower extremities with edema and thrombocytopenia, cirrhosis of liver, hypo albuminemia, anemia, coronary artery disease, severe aortic stenosis. Echo on 10/12/2015 showed severe aortic stenosis, grade II diastolic dysfunction, [id number] aortic regurgitation, moderate-to- severe valvular aortic stenosis, peak gradient 76 mmHg. PLAN: The patient on spironolactone 25 b.i.d., vibramycin 100 mg IV q.12 hours, potassium chloride 2 0 mEq p.o. q.8 hours, furosemide 80 mg IV q.8 hours, metoprolol tartrate 12.5 mg daily, Protonix 40 m g daily, methylprednisone 20 mg IV q.12 hours, piperacillin tazobactam 3.375 gram IV q.8 hours. We w ill continue present therapy, we will follow with you. Pablo Shah MD cc: [id number] TT: 11/07/2016 12:30:40 Confirmation # [id number] Dictation # [id number]
--- NOTE | 2016-11-07 18:33 | PN ---
DATE: 11/07/2016 REFERRING PHYSICIAN: Dr. Rg. SUBJECTIVE: She is sitting side of the bed, feels better, decreased headache, rhinitis. No nausea. Decreased shortness of breath. No cough. No abdominal pain, decreased leg swelling. Has Ming wraps . OBJECTIVE: GENERAL: No acute distress. VITAL SIGNS: Temp is 98, heart rate 84, respiratory rate is 20, blood pressure 130/60, pulse ox 95% on 2 liters nasal cannula. HEENT: Moist mucous membrane. No ulcer or oral thrush noted. NECK: Supple. No JVD. LUNGS: Has a fair airflow with few crackles in the bases. HEART: S1 and S2. ABDOMEN: Soft, nontender. No organomegaly. EXTREMITIES: Has swelling with decreased erythema, ____ has Ming wraps. NEUROLOGIC: Awake, alert, follows simple command. MEDICATIONS: She is on Mucomyst 20% 4 mL inhaled twice a day, Aldactone 25 mg twice a day, Brovana 1 5 mcg inhaled twice a day, Dilaudid 0.25 mg IV q. 4 hours p.r.n., doxycycline 100 mg twice a day, ins ulin coverage, potassium 20 mEq q. 8 hours, Lasix 80 mg q. 8 hours, metoprolol tartrate 25 mg daily, Lotrisone at affected area, Protonix 40 mg daily, Pulmicort inhaled twice a day, Solu-Medrol 20 mg q . 12 hours, Spiriva capsule inhaled ____ 3.375 grams q. 8 hours. LABORATORY DATA: Shows hemoglobin 10.3, hematocrit 31.0, WBC 5.1, platelet count is 91. Sodium 137, potassium 4.4, chloride 96, bicarbonate 31, BUN 46, creatinine 1.0, glucose 148, and calcium 9.2. T otal bilirubin 2.0, AST 41, ALT 29, alkaline phosphatase is 55. Albumin is 3.3. MICROBIOLOGY: Blood culture has been negative. IMPRESSION AND PLAN: Cardiomyopathy with severe aortic stenosis, coronary artery disease, heart fail ure, chronic obstructive lung disease, sleep apnea syndrome, noncompliant with CPAP, pulmonary hypert ension, ____ cirrhosis, ____ , ascites, lower extremity cellulitis and edema, pancytopenia, esophagit is, duodenitis, gastritis. Pulmonary point of view, doing okay. Will continue inhaled bronchodilato r, keep head elevated at 45 degree. Antibiotics as per infectious diseases. Encourage BiPAP use at nighttime. Continue diuretics. Supplement potassium. Follow up electrolytes. Fall precaution. St art therapy. Thank you and will follow with you. Pablo Cantor MD cc: [id number] TT: 11/07/2016 18:31:54 Confirmation # [id number] Dictation # [id number] jn
[2016-11-07] MEDS: HYDROmorphone 0.5 mg/0.5 ml ISec IVP PRN (22:16)
[2016-11-07] MEDS: Tiotropium 18 mcg Cap For Inhalation IH SCH (22:23)
[2016-11-08] MEDS: Insulin Reg-LOW-Coverage SC SCH ×5 (02:42→22:14)
[2016-11-08] MEDS: HYDROmorphone 0.5 mg/0.5 ml ISec IVP PRN (04:08)
--- NOTE | 2016-11-08 05:50 | PN ---
DATE: 11/07/2016 SUBJECTIVE: The patient seen and examined at the bedside. Feeling better. Coughing is better. Shortness of breath is better. No rhinitis. No headache, no dizziness, No fever, no chills. Swelling of the legs is getting better; has Ming bandage wraps. PHYSICAL EXAMINATION: VITAL SIGNS: Temperature 98, heart rate 84, respiratory rate 20, blood pressure 130/60, pulse oximetry is 95% on 2 liters nasal cannula. HEENT: Head normocephalic, atraumatic. Eyes, PERRLA. Extraocular muscles are intact. Conjunctivae pink. Eyelids unremarkable. Nose patent. Mucous membranes moist. NECK: Supple. No carotid bruit, JVD or thyromegaly. CHEST: Bilaterally symmetrical. HEART: S1, S2 positive. LUNGS: Has fair airflow with few rhonchi and crackles in the bases. ABDOMEN: Soft, nontender. No organomegaly. EXTREMITIES: Trace edema but wrapped with Ming bandage. NEUROLOGICAL: The patient is awake, alert, follows simple commands, oriented x 3. MEDICATIONS: Mucomyst, Aldactone, Brovana, Dilaudid, doxycycline, potassium, Lasix, metoprolol, Lotrisone, Protonix, Pulmicort, Solu-Medrol, Spiriva. LABORATORY DATA: Hemoglobin 10.3, hematocrit 31.0, white blood cells 5.1, platelets 91. Sodium 137, potassium 4.4, BUN 46, creatinine 1.0, glucose 148. Bilirubin 2.0, AST 41, ALT 29. ASSESSMENT AND PLAN: The patient is a 76-year-old lady with cardiomyopathy with severe aortic stenosis, coronary artery disease, congestive heart failure, chronic obstructive lung disease, sleep apnea syndrome noncompliant with CPAP, pulmonary hypertension, cirrhosis of the liver with ascites, pancytopenia, has cellulitis of the lower extremities with edema, esophagitis, duodenitis and gastritis. Continue bronchodilators. Encourage BiPAP, antibiotics and physical therapy. Podiatry is on the case. Gastrointestinal and deep venous thrombosis prophylaxis. Repeat labs. We will follow up. Kristin Rg MD cc: [id number] TT: 11/08/2016 05:50:01 Confirmation # [id number] Dictation # [id number] nn MTDD
[2016-11-08] MEDS: Potassium Chloride 20 mEq ER Tab PO SCH ×3 (06:24→22:02)
[2016-11-08] MEDS: Pantoprazole 40 mg EC Tab PO SCH (06:24)
[2016-11-08] MEDS: Piperacillin/Tazobact 3.375 gm 100 ML IVPB SCH ×3 (06:25→22:04)
[2016-11-08 07:22] LABS: BLOOD UREA NITROGEN 49 mg/dL (7-21); CALCIUM 9.2 mg/dL (8.4-10.5); CARBON DIOXIDE 32 mmol/L (21-33); CHLORIDE 96 mmol/L (95-110); GFR AFRICAN-AMERICAN > 60; GLUCOSE,RANDOM 148 mg/dL (70-110); POTASSIUM 4.5 mmol/L (3.6-5.0); SODIUM 136 mmol/L (132-148)
[2016-11-08] MEDS: Clotrimazole/Betamethasone Cream(15 gm) TOP SCH ×2 (09:23→17:13)
[2016-11-08] MEDS: MethylPREDNISolone 40 mg Vial IVP SCH ×2 (09:24→22:02)
[2016-11-08] MEDS: Arformoterol 15 mcg/2 ml Inh Sol IH SCH ×2 (09:59→21:17)
[2016-11-08] MEDS: Acetylcysteine 20% Inhal Soln (4ml) IH SCH ×2 (09:59→21:17)
[2016-11-08] MEDS: Budesonide 0.5 mg/2 ml Inhal Susp UD IH SCH ×2 (09:59→21:17)
--- NOTE | 2016-11-08 12:08 | CP.PCM.PN ---
Subjective - Date & Time of Evaluation Date of Evaluation: 11/08/16 Time of Evaluation: 10:35 - Subjective Subjective: 76 year old female patient was seen at bedside with attending Dr. Neal concerning cellilitis to bilateral lower extremities. Patient was resting well in bed at the time of visit. AAO x3. Dressing to bilateral lower extremities remain clean dry and intact. She states the pain has decreased now and is able to ambulate slowly. Patient still does have mild pain to the legs and plantar feet bilaterally. She denies nausea, fever, chills, shortness of breath, chest pain. Objective - Vital Signs/Intake and Output Vital Signs (last 24 hours): Temp Pulse Resp BP Pulse Ox 98.5 F 88 17 110/60 97 11/08/16 06:00 11/08/16 09:22 11/08/16 06:00 11/08/16 09:22 11/08/16 06:00 - Medications Medications: Current Medications Acetylcysteine (Acetylcysteine 20%) 4 ml IH [id number] [facility] Last Admin: 11/08/16 09:59 Dose: 4 ml Arformoterol Tartrate (Brovana) 15 mcg IH [id number] [facility] Last Admin: 11/08/16 09:59 Dose: 15 mcg Betamethasone/Clotrimazole (Lotrisone) 0 gm TOP BID [facility] Last Admin: 11/08/16 09:23 Dose: 1 applic Budesonide (Pulmicort Respules) 0.5 mg IH [id number] [facility] Last Admin: 11/08/16 09:59 Dose: 0.5 mg Furosemide (Lasix) 80 mg IVP Q8 [facility] Last Admin: 11/08/16 06:32 Dose: Not Given Hydromorphone HCl (Dilaudid) 0.25 mg IVP Q4H PRN PRN Reason: Pain, moderate (4-7) Last Admin: 11/08/16 04:08 Dose: 0.25 mg Piperacillin Sod/Tazobactam Sod (Zosyn 3.375 In Ns 100ml) 100 mls @ 200 mls/hr IVPB Q8 [facility]LEX[facility]DRA PRN Reason: Protocol Stop: 11/10/16 22:01 Last Admin: 11/08/16 06:25 Dose: 200 mls/hr Doxycycline Hyclate 100 mg/ (Sodium Chloride) 100 mls @ 100 mls/hr IVPB Q12 [facility]LEXANDRA PRN Reason: Protocol Stop: 11/11/16 10:01 Last Admin: 11/08/16 10:16 Dose: 100 mls/hr Insulin Human Regular (Humulin R Low) 0 units SC ACHS [facility]LEXANDRA PRN Reason: Protocol Last Admin: 11/08/16 09:21 Dose: 1 units Methylprednisolone (Solu-Medrol) 20 mg IVP Q12 [facility] Last Admin: 11/08/16 09:24 Dose: 20 mg Metoprolol Tartrate (Lopressor) 12.5 mg PO DAILY [facility] Last Admin: 11/08/16 09:22 Dose: 12.5 mg Pantoprazole Sodium (Protonix Ec Tab) 40 mg PO 0630 [facility] Last Admin: 11/08/16 06:24 Dose: 40 mg Potassium Chloride (K-Dur 20 Meq Er Tab) 20 meq PO Q8 [facility] Last Admin: 11/08/16 06:24 Dose: 20 meq Spironolactone (Aldactone) 25 mg PO BID [facility] Last Admin: 11/08/16 09:21 Dose: 25 mg Tiotropium [place] (Spiriva) 18 mcg IH HS [facility] Last Admin: 11/07/16 22:23 Dose: Not Given - Labs Labs: 11/07/16 06:00 11/08/16 06:30 PT 12.0 Seconds (9.9-11.8) H 11/03/16 09:12 INR 1.11 (0.93-1.08) H 11/03/16 09:12 APTT 28.2 Seconds (23.7-30.8) 11/03/16 09:12 - Constitutional Appears: Well, Non-toxic, No Acute Distress - Extremities Exam Additional comments: DERM: No open wound is noted. Mild erythema is noted to bilateral legs at the level of mid-calf around the legs. +2 pitting edema of b/l legs, mild diffuse erythema of legs b/l, no open lesions, no fluctuance, no purulence, no malodor Debrided hyperkeratotic callus was noted to plantar aspect of Right foot sub- met 1st and medial aspect of Left 1st metatarsal head. No erythema or sign of acute infection is noted from these areas. VASC: lightly palpable pedal pulses b/l, TG wnl, CFT < 3 sec to all digits NEURO: grossly diminished ORTHO: mild pain to palpation of legs b/l - Neurological Exam Neurological Exam: Awake, Oriented x3 - Psychiatric Exam Psychiatric exam: Normal Affect, Normal Mood - Skin Skin Exam: Normal Color, Warm Assessment and Plan - Assessment and Plan (Free Text) Assessment: 76 year old female patient presents with 1) bilateral lower extremity cellulitis 2) plantar forefoot calluses Plan: Patient evaluated and treated at bedside with attending Dr. Neal Labs and chart reviewed; afebrile Lotrisone cream applied to bilateral legs Applied DSD and PEGGY to b/l lower extremities Continue IV abx as per ID Podiatry will continue to monitor while patient remains in house
--- NOTE | 2016-11-08 13:23 | PN ---
DATE: 11/08/2016 REASON FOR CONSULTATION AND FOLLOWUP: Swelling of the leg, history of coronary artery disease. BRIEF CLINICAL HISTORY: A 76-year-old female with past medical history significant for congestive he art failure, cirrhosis of liver, COPD, asthma, coronary artery disease, admitted with a complaint of swelling of the leg. Denies any chest pain, shortness of breath, any palpitation. The patient is ly ing comfortably in the bed. PHYSICAL EXAMINATION: VITAL SIGNS: Temperature afebrile, heart rate 88, blood pressure 110/60. HEENT: PERRLA. Extraocular muscles intact. NECK: Supple. No carotid bruits. No thyromegaly. CHEST: Clear to auscultation. HEART: S1, S2 regular. ABDOMEN: Soft. EXTREMITIES: Clubbing and cyanosis negative. LABORATORY DATA: Blood workup as follows: WBC ____, hemoglobin 10.3, hematocrit 31.0, platelet coun t 91. Chemistry shows sodium 130, potassium 4.5, chloride ____, carbon dioxide 32, anion gap of 13, BUN 49, creatinine 1.0. IMPRESSION: Swelling of the leg, hypoproteinemia, cirrhosis, coronary artery disease, status post pe rcutaneous transluminal coronary angioplasty in the past. The patient's echo on 10/12/2015 shows sever e aortic stenosis, diastolic dysfunction, mild to moderate aortic regurg, severe aortic stenosis, mil [id number] aortic regurgitation. Peak gradient of ____. RECOMMENDATION: Continue spironolactone. Continue vancomycin. Continue gentle diuretic as blood pr essures tolerate. The patient refused for TAVR evaluation. We will follow with you. Aggressive med ical treatment. Thank you, Dr. Rg, for providing the opportunity in taking care of this patient. Pablo Guillermo MD cc: [id number] TT: 11/08/2016 13:22:04 Confirmation # [id number] Dictation # [id number] ilya
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
--- NOTE | 2016-11-08 21:25 | PN ---
DATE: 11/08/2016 REFERRING PHYSICIAN: Dr. Rg. SUBJECTIVE: The patient is sitting in the chair. Night was unremarkable. Feels much better. No hea daches, no rhinitis, no cough, no nausea, no vomiting, no diarrhea. Decreased leg swelling. Has Ming wraps. OBJECTIVE: GENERAL: In no acute distress. VITAL SIGNS: Temp is 98, heart rate is 88, respiratory rate 20, blood pressure 100/58, pulse ox 97% on 2 liters nasal cannula. HEENT: Moist mucous membrane. No ulcer or oral thrush noted. NECK: Supple. No JVD. LUNGS: Has a fair airflow with few rhonchi. HEART: S1 and S2. ABDOMEN: Soft, nontender. No organomegaly. EXTREMITIES: Decreased edema, decreased erythema, has Mign wraps. NEUROLOGIC: Awake, alert, follows simple commands. MEDICATIONS: She is on Mucomyst 20% inhaled twice a day, Aldactone 25 mg twice a day, Brovana 50 mcg inhaled twice a day, Dilaudid 0.25 mg q. 4 hours p.r.n., doxycycline 100 mg twice a day, insulin cov erage, potassium 20 mEq q. 8 hours, Lasix 80 mg q. 12 hours, metoprolol tartrate 12.5 mg daily, Lotri sone to affected area, Protonix 40 mg daily, Pulmicort inhaled twice a day, Solu-Medrol 20 mg q. 12 h ours, Spiriva 1 capsule inhaled daily, Zosyn 3.375 grams q. 8 hours. LABORATORY DATA: Shows sodium 136, potassium 4.5, chloride 96, bicarbonate 32, BUN 49, creatinine 1. 0, glucose 148, calcium is 9.2. Blood culture, there is no growth. IMPRESSION AND PLAN: Cardiomyopathy with severe aortic stenosis, coronary artery disease, heart fail ure, chronic obstructive lung disease, sleep apnea syndrome, noncompliant with CPAP, pulmonary hypert ension, cryptogenic cirrhosis, ascites, lower extremity cellulitis and edema, history of pancytopenia , esophagitis, duodenitis, gastritis. Noted the Lasix is decreased to 80 twice a day. Will also dec rease potassium 20 mEq twice a day. Follow up electrolytes. Will benefit from TRCU type services. S leep apnea precautions. Avoid sedation. We will follow with you. Pablo Cantor MD cc: [facility] TT: 11/08/2016 21:24:38 Confirmation # [id number] Dictation # [id number] rn
[2016-11-08] MEDS: Tiotropium 18 mcg Cap For Inhalation IH SCH (22:13)
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
[2016-11-09] MEDS: Piperacillin/Tazobact 3.375 gm 100 ML IVPB SCH ×3 (05:50→22:12)
[2016-11-09] MEDS: Pantoprazole 40 mg EC Tab PO SCH (05:50)
[2016-11-09] MEDS: Arformoterol 15 mcg/2 ml Inh Sol IH SCH ×2 (08:03→19:33)
[2016-11-09] MEDS: Budesonide 0.5 mg/2 ml Inhal Susp UD IH SCH ×2 (08:03→19:33)
[2016-11-09] MEDS: Acetylcysteine 20% Inhal Soln (4ml) IH SCH ×2 (08:03→19:33)
[2016-11-09 08:19] LABS: ALB/GLOB RATIO 1.1 (1.1-1.8); ALKALINE PHOSPHATASE 54 U/L (38-133); ALT/SGPT 56 U/L (7-56); AST/SGOT 48 U/L (15-39); BILIRUBIN,TOTAL 2.4 mg/dL (0.2-1.3); BLOOD UREA NITROGEN 44 mg/dL (7-21); CALCIUM 9.5 mg/dL (8.4-10.5); CARBON DIOXIDE 30 mmol/L (21-33); CHLORIDE 96 mmol/L (98-107); GFR AFRICAN-AMERICAN > 60; GLUCOSE,RANDOM 145 mg/dL (70-110); POTASSIUM 4.4 mmol/L (3.6-5.0); SODIUM 135 mmol/L (132-148); TOTAL PROTEIN 6.3 g/dL (5.8-8.3)
[2016-11-09 08:24] LABS: HEMATOCRIT 31.3 % (36.0-48.0); MEAN CELL VOLUME 95.1 fL (80.0-105.0); MEAN CORPUSCULAR HEMOGLOBIN 31.9 pg (25.0-35.0); MEAN CORPUSCULAR HGB CONC 33.5 g/dl (31.0-37.0); MEAN PLATELET VOLUME 9.6 fl (7.0-11.0); RED CELL DISTRIBUTION WIDTH 14.7 % (11.5-14.5); WHITE BLOOD COUNT 5.3 10^3/ul (4.5-11.0)
[2016-11-09 08:40] VITALS: RESP 20
[2016-11-09] MEDS: Insulin Reg-LOW-Coverage SC SCH ×4 (08:44→22:00)
[2016-11-09] MEDS: MethylPREDNISolone 40 mg Vial IVP SCH (09:58)
[2016-11-09] MEDS: Potassium Chloride 20 mEq ER Tab PO SCH ×2 (09:58→22:13)
[2016-11-09] MEDS: Clotrimazole/Betamethasone Cream(15 gm) TOP SCH ×2 (10:04→17:46)
[2016-11-09] MEDS: HYDROmorphone 0.5 mg/0.5 ml ISec IVP PRN ×2 (11:22→22:39)
--- NOTE | 2016-11-09 14:19 | PN ---
DATE: 11/09/2016 REFERRING PHYSICIAN: Dr. Rg. SUBJECTIVE: HEENT: Moist mucous membrane. Crowded airway. NECK: Supple. No JVD. LUNGS: Has a fair airflow with few rhonchi. HEART: S1 and S2. ABDOMEN: Soft, nontender, decreased ascites. EXTREMITIES: Has Ming wraps. Still has the swelling, but decreased erythema. NEUROLOGIC: Awake, alert, follows simple commands. MEDICATIONS: She is on Mucomyst 20% inhaled q. 12 hours, Aldactone 25 mg twice a day, Brovana 15 mcg inhaled twice a day, Dilaudid 0.25 mg IV q. 4 hours p.r.n., doxycycline 100 mg twice a day, insulin coverage, potassium 20 mEq twice a day, Lasix 80 mg IV q. 8 hours, metoprolol tartrate 12.5 mg daily, Lotrisone at affected area, Protonix 40 mg daily, Pulmicort inhaled twice a day, Solu-Medrol 20 mg q . 12 hours, Spiriva inhaler at bedtime and Zyvox 3.375 g IV q. 8 hours. LABORATORY DATA: Shows hemoglobin 10.5, hematocrit 31.3, WBC 5.3, platelet is 99. Sodium 135, potas sium 4.4, chloride 96, bicarbonate 30, BUN 44, creatinine 1.0, glucose 145, calcium 9.5, total bili 2 .4, AST 4.8, ALT 56, alk phos is 54, albumin is 3.2. Microbiology: Blood cultures have been negativ e, no growth. IMPRESSION AND PLAN: Cardiomyopathy with severe aortic stenosis, coronary artery disease, heart fail ure, chronic obstructive lung disease, sleep apnea syndrome, noncompliant with CPAP, pulmonary hypert ension, cryptogenic cirrhosis with ascites, lower extremity cellulitis and edema, history of pancytop enia, esophagitis, duodenitis, gastritis. From pulmonary point of view, she is doing much better. N oted the Lasix is back increased to 80 mg 3 times a day, been responding well to it. Will discontinu e Solu-Medrol, the patient on 20 mg prednisone daily and taper off in the next few days. Follow up e lectrolyte. Good candidate for TFCU type services. Still cannot independently stand and walk; she l angella alone. Pablo Cantor MD cc: [id number] TT: 11/09/2016 14:18:19 Confirmation # [id number] Dictation # [id number] an
--- NOTE | 2016-11-09 19:37 | PN ---
DATE: 11/09/2016 The patient is in room 377, bed 2. REASON FOR CONSULTATION AND FOLLOWUP: Swelling of legs, history of coronary artery disease. HISTORY OF PRESENT ILLNESS: A 76-year-old female with past medical history significant for congestiv e heart failure, cirrhosis of liver, COPD, asthma, coronary artery disease, admitted with complaint o f swelling of legs. Denies any shortness of breath or palpitation. The patient has a localized ches t pain with local tenderness which is musculoskeletal pain. The patient lying flat in bed without an y cardiac symptoms. PHYSICAL EXAMINATION: VITAL SIGNS: Blood pressure 111/49, respirations 20, pulse 73, temperature 98.2. HEAD: Normocephalic. EYES: Pupils normal. Conjunctivae slightly pale. NECK: JVP low. Carotid equal. THORAX: AP diameter normal. LUNGS: Clear. CARDIOVASCULAR: S1, S2, ejection systolic murmur grade III/. No rub. ABDOMEN: Soft, nontender, no organomegaly. EXTREMITIES: No clubbing, no cyanosis. LABORATORY DATA: WBC 5.3, hemoglobin 10.5, hematocrit 31.3, platelets 99. Sodium 135, potassium 4.4 , BUN 44, creatinine 1.3, sugar 198, calcium 9.5, total bilirubin 2.4, AST 48, ALT 56, total protein and albumin normal. Prothrombin time 12.0, INR 1.1. DIAGNOSES: Swelling of legs, hypoproteinemia, cirrhosis, coronary artery disease, status post percut aneous transluminal coronary angioplasty in the past. Echo on 10/12/2015 showed severe aortic stenosis , diastolic dysfunction, mild to moderate aortic regurg, severe aortic stenosis, mild to moderate ___ _ PLAN: The patient was offered TAVR surgery for aortic stenosis in the past, but patient has refused, so we will continue present therapy. Spironolactone 25 b.i.d., doxycycline 100 mg IV q. 12 hours. Potassium 20 mEq q. 12 hours, Lasix 80 mg IV q. 8 hours, metoprolol tartrate 12.5 mg p.o. daily, Pro tonix 40 mg p.o. daily, piperacillin tazobactam IV q. 8 hours, prednisone 20 mg p.o. daily. We will follow with you. Pablo Shah MD cc: [id number] TT: 11/09/2016 19:36:31 Confirmation # [id number] Dictation # [id number] jn
--- NOTE | 2016-11-09 19:54 | PN ---
DATE: 11/09/2016 SUBJECTIVE: The patient seen and examined on the bedside, sitting on the bed, looks comfortable. No nausea, vomiting, diarrhea. Cough is better. Shortness of breath better. Swelling of the leg is b kate. According to her, her foot pain is better. No fever, no chills. PHYSICAL EXAMINATION: VITAL SIGNS: Temperature 98.2, pulse 76, blood pressure 122/61, respiratory rate 20. HEENT: Head normocephalic, atraumatic. Eyes PERRLA. Extraocular muscles intact. Conjunctivae pink . Eyelids unremarkable. Nose patent. Mucous membranes moist. NECK: Supple. No carotid bruit, no JVD, no thyromegaly. LUNGS: Clear to auscultation. ABDOMEN: Soft. Bowel sounds present. No organomegaly. EXTREMITIES: No edema, no cyanosis. NEUROLOGIC: The patient awake, alert, moving all 4 extremities. No focal deficit. MEDICATIONS: Acetylcysteine, spironolactone, Brovana, Dilaudid, doxycycline, insulin, Lasix, metopr olol, Lotrisone, prednisone, Protonix, Pulmicort, Spiriva, Zosyn. LABORATORY DATA: White blood cells 5.3, hemoglobin 10.5, hematocrit 31.3, platelets 99. Sodium 135, potassium 4.4, BUN 44, creatinine 1.0. Glucose 198, 178, 145. Bilirubin 2.4. AST 48. ASSESSMENT AND PLAN: The patient is a 76-year-old lady with history of leukopenia improved, anemia, history of thrombocytopenia, hyperglycemia, noninsulin requiring diabetes mellitus type 2, uncontroll ed; abnormal liver function test, cirrhosis of the liver. Seen by infectious disease, Dr. Richard and Dr. Cantor, ivf embryologist. Podiatry is on the case also. History of cardiomyopathy, severe aortic s tenosis, coronary artery disease, congestive heart failure, chronic obstructive lung disease, sleep a pnea syndrome, noncompliant with continuous positive airway pressure, pulmonary hypertension, history of ascites, lower extremity cellulitis, edema, esophagitis, duodenitis, gastritis. The patient is g etting high dose of Lasix and responded very well. Dr. Cantor discontinued Solu-Medrol and started p rednisone with a tapering dose. We will try to send patient to transitional care unit. Needs help f or activities of daily living. We will follow up. Kristin Rg MD cc: [id number] TT: 11/09/2016 19:53:15 Confirmation # [id number] Dictation # [id number]
[2016-11-09] MEDS: Tiotropium 18 mcg Cap For Inhalation IH SCH (22:13)
--- NOTE | 2016-11-09 23:09 | CP.PCM.PN ---
Subjective - Date & Time of Evaluation Date of Evaluation: 11/09/16 Time of Evaluation: 23:07 - Subjective Subjective: Patient was seen because she comlained of pain in back, going to front in the chest. When I went to see her , she stated that pain is going away.She had received dilaudid that was scheduled for her. Has no complaints now. Pertinent medical record was reviewed. This 76 year old woman was admitted cellulitis of leg. Has PMH of CHF, Cirrhosis of liver, COPD, , CAD, HTN, urinary bladder infection, gastritis, depression , appendectomy, cholecystectomy, coronary angioplasy, had refused TAVR. Objective - Vital Signs/Intake and Output Vital Signs (last 24 hours): Temp Pulse Resp BP Pulse Ox 98.2 F 73 20 117/54 L 98 11/09/16 06:00 11/09/16 09:53 11/09/16 06:00 11/09/16 22:32 11/09/16 06:00 Intake and Output: 11/09/16 11/10/16 18:59 06:59 Intake Total 840 540 Output Total 500 Balance 840 40 - Medications Medications: Current Medications Acetylcysteine (Acetylcysteine 20%) 4 ml IH [id number] [facility] Last Admin: 11/09/16 19:33 Dose: 4 ml Arformoterol Tartrate (Brovana) 15 mcg IH [id number] [facility] Last Admin: 11/09/16 19:33 Dose: 15 mcg Betamethasone/Clotrimazole (Lotrisone) 0 gm TOP BID [facility] Last Admin: 11/09/16 17:46 Dose: 1 applic Budesonide (Pulmicort Respules) 0.5 mg IH [id number] [facility] Last Admin: 11/09/16 19:33 Dose: 0.5 mg Furosemide (Lasix) 80 mg IVP Q8 [facility] Last Admin: 11/09/16 22:32 Dose: 80 mg Hydromorphone HCl (Dilaudid) 0.25 mg IVP Q4H PRN PRN Reason: Pain, moderate (4-7) Last Admin: 11/09/16 22:39 Dose: 0.25 mg Piperacillin Sod/Tazobactam Sod (Zosyn 3.375 In Ns 100ml) 100 mls @ 200 mls/hr IVPB Q8 ALEXANDRA PRN Reason: Protocol Stop: 11/10/16 22:01 Last Admin: 11/09/16 22:12 Dose: 200 mls/hr Doxycycline Hyclate 100 mg/ (Sodium Chloride) 100 mls @ 100 mls/hr IVPB Q12 ALEXANDRA PRN Reason: Protocol Stop: 11/11/16 10:01 Last Admin: 11/09/16 22:11 Dose: 100 mls/hr Insulin Human Regular (Humulin R Low) 0 units SC ACHS ALEXANDRA PRN Reason: Protocol Last Admin: 11/09/16 22:00 Dose: Not Given Metoprolol Tartrate (Lopressor) 12.5 mg PO DAILY [facility] Last Admin: 11/09/16 09:53 Dose: 12.5 mg Pantoprazole Sodium (Protonix Ec Tab) 40 mg PO 0630 [facility] Last Admin: 11/09/16 05:50 Dose: 40 mg Potassium Chloride (K-Dur 20 Meq Er Tab) 20 meq PO Q12 [facility] Last Admin: 11/09/16 22:13 Dose: 20 meq Prednisone (Prednisone Tab) 20 mg PO DAILY [facility] Spironolactone (Aldactone) 25 mg PO BID [facility] Last Admin: 11/09/16 17:38 Dose: 25 mg Tiotropium [place] (Spiriva) 18 mcg IH HS [facility] Last Admin: 11/09/16 22:13 Dose: 18 mcg - Labs Labs: 11/09/16 06:30 11/09/16 06:30 PT 12.0 Seconds (9.9-11.8) H 11/03/16 09:12 INR 1.11 (0.93-1.08) H 11/03/16 09:12 APTT 28.2 Seconds (23.7-30.8) 11/03/16 09:12 - Constitutional Appears: Well, No Acute Distress - Head Exam Head Exam: ATRAUMATIC, NORMAL INSPECTION, NORMOCEPHALIC - Eye Exam Eye Exam: Normal appearance - ENT Exam ENT Exam: Normal External Ear Exam - Neck Exam Neck Exam: Normal Inspection - Respiratory Exam Respiratory Exam: NORMAL BREATHING PATTERN - Cardiovascular Exam Cardiovascular Exam: absent: JVD - GI/Abdominal Exam GI & Abdominal Exam: absent: Distended - Rectal Exam Rectal Exam: Deferred - Extremities Exam Extremities Exam: Normal Inspection - Back Exam Back Exam: NORMAL INSPECTION - Neurological Exam Neurological Exam: Alert, Oriented x3 - Psychiatric Exam Psychiatric exam: Normal Affect, Normal Mood - Skin Skin Exam: Normal Color Assessment and Plan - Assessment and Plan (Free Text) Assessment: A/P:Chest pain -mucular. Back pain. CHF. COPD. Depression. Dilaudid helped for pain. Observation. Continue present management.
[2016-11-10] MEDS: Piperacillin/Tazobact 3.375 gm 100 ML IVPB SCH ×3 (05:19→21:46)
[2016-11-10] MEDS: Pantoprazole 40 mg EC Tab PO SCH ×2 (05:20→09:30)
[2016-11-10] MEDS: Acetylcysteine 20% Inhal Soln (4ml) IH SCH ×2 (07:38→20:18)
[2016-11-10] MEDS: Arformoterol 15 mcg/2 ml Inh Sol IH SCH ×2 (07:38→20:18)
[2016-11-10] MEDS: Budesonide 0.5 mg/2 ml Inhal Susp UD IH SCH ×2 (07:39→20:19)
[2016-11-10] MEDS: Insulin Reg-LOW-Coverage SC SCH ×4 (08:13→22:14)
--- NOTE | 2016-11-10 08:17 | PN ---
DATE: 11/09/2016 This is a 76-year-old woman seen for followup of ulcerations and cellulitis to her lower extremity. The patient is seen at bedside. She has Ming bandages on and they are clean, dry and intact. She sta abbi her legs are starting to feel better. The patient's legs were examined. Her neurovascular statu s is unchanged. She does have palpable pedal pulses. She has decreased sensation to her distal foot ; however, she has hypersensation to the midfoot. The patient's cellulitis has resolved. There are no open wounds on the legs. There is no weeping. There is no fluctuance. There is no pain on palpa tion. The calluses on the bottom of the feet have been debrided and there are no ulcerations underne ath these calluses. LABORATORY DATA: Reviewed. ASSESSMENT: A diabetic with edema with chronic on and off cellulitis to the lower extremity and pain ful calluses. PLAN OF TREATMENT: I did explain to the patient she has to have her legs wrapped. She is having a h annette time getting stockings on. I gave her the name of a stocking. I actually pulled it off the [employer] for her that she would be able to pull on; however, she states she has no one to help get the st ocking and she does not know how to go on the Internet. She states she asked her son and he has not helped her as of yet. The other problem, the problem with the calluses. I had given her a prescript ion for diabetic shoes. She has not yet gotten new shoes. She did not like the old ones that she thompson d and she has been hesitating; however, she is wearing slippers and clogs and they are not alleviatin g the pressure under the ulcers. I explained to her that is why these ulcers are so painful and they will not get better unless she gets the diabetic shoes with the Plastizote insoles. The patient's L otrisone was placed on and she will be seen and followed as needed. Belkis Garcia DPM cc: [id number] TT: 11/09/2016 17:13:11 Confirmation # [id number] Dictation # [id number] rn
[2016-11-10] MEDS: Potassium Chloride 20 mEq ER Tab PO SCH ×2 (09:27→21:45)
[2016-11-10] MEDS: Clotrimazole/Betamethasone Cream(15 gm) TOP SCH ×2 (09:28→17:14)
--- NOTE | 2016-11-10 10:55 | CP.PCM.PN ---
<Genaro Kenney - Last Filed: 11/10/16 10:52> Subjective - Date & Time of Evaluation Date of Evaluation: 11/10/16 Time of Evaluation: 06:15 - Subjective Subjective: 76 year old female patient was seen at bedside this morning concerning cellulitis to bilateral lower extremities. Patient was resting well in bed at the time of visit. AAO x3. PEGGY bandage dressing to bilateral lower extremities remain clean dry and intact. Patient complains of pain to bilateral feet stating that PEGGY bandages are little too tight. No pain induced upon calf squeeze bilaterally. She denies nausea, fever, chills, shortness of breath, chest pain. Objective - Vital Signs/Intake and Output Vital Signs (last 24 hours): Temp Pulse Resp BP Pulse Ox 97.7 F 73 20 103/50 L 98 11/10/16 06:00 11/10/16 09:28 11/10/16 06:00 11/10/16 09:28 11/10/16 06:00 Intake and Output: 11/10/16 11/10/16 06:59 18:59 Intake Total 840 Output Total 1100 Balance -260 - Medications Medications: Current Medications Acetylcysteine (Acetylcysteine 20%) 4 ml IH [id number] [facility] Last Admin: 11/10/16 07:38 Dose: 4 ml Arformoterol Tartrate (Brovana) 15 mcg IH [id number] [facility] Last Admin: 11/10/16 07:38 Dose: 15 mcg Betamethasone/Clotrimazole (Lotrisone) 0 gm TOP BID [facility] Last Admin: 11/10/16 09:28 Dose: 1 applic Budesonide (Pulmicort Respules) 0.5 mg IH [id number] [facility] Last Admin: 11/10/16 07:39 Dose: 0.5 mg Furosemide (Lasix) 80 mg IVP Q8 [facility] Last Admin: 11/10/16 06:04 Dose: Not Given Hydromorphone HCl (Dilaudid) 0.25 mg IVP Q4H PRN PRN Reason: Pain, moderate (4-7) Last Admin: 11/09/16 22:39 Dose: 0.25 mg Piperacillin Sod/Tazobactam Sod (Zosyn 3.375 In Ns 100ml) 100 mls @ 200 mls/hr IVPB Q8 ALEXANDRA PRN Reason: Protocol Stop: 11/10/16 22:01 Last Admin: 11/10/16 05:19 Dose: 200 mls/hr Doxycycline Hyclate 100 mg/ (Sodium Chloride) 100 mls @ 100 mls/hr IVPB Q12 ALEXANDRA PRN Reason: Protocol Stop: 11/11/16 10:01 Last Admin: 11/10/16 09:31 Dose: 100 mls/hr Insulin Human Regular (Humulin R Low) 0 units SC ACHS ALEXANDRA PRN Reason: Protocol Last Admin: 11/10/16 08:13 Dose: Not Given Metoprolol Tartrate (Lopressor) 12.5 mg PO DAILY [facility] Last Admin: 11/10/16 09:28 Dose: Not Given Pantoprazole Sodium (Protonix Ec Tab) 40 mg PO 0630 [facility] Last Admin: 11/10/16 09:30 Dose: Not Given Potassium Chloride (K-Dur 20 Meq Er Tab) 20 meq PO Q12 [facility] Last Admin: 11/10/16 09:27 Dose: 20 meq Prednisone (Prednisone Tab) 20 mg PO DAILY [facility] Last Admin: 11/10/16 09:28 Dose: 20 mg Spironolactone (Aldactone) 25 mg PO BID [facility] Last Admin: 11/10/16 09:27 Dose: 25 mg Tiotropium [place] (Spiriva) 18 mcg IH HS [facility] Last Admin: 11/09/16 22:13 Dose: 18 mcg - Labs Labs: 11/09/16 06:30 11/09/16 06:30 PT 12.0 Seconds (9.9-11.8) H 11/03/16 09:12 INR 1.11 (0.93-1.08) H 11/03/16 09:12 APTT 28.2 Seconds (23.7-30.8) 11/03/16 09:12 - Constitutional Appears: Well, Non-toxic, No Acute Distress - Extremities Exam Additional comments: DERM: No open wound is noted. Mild erythema is noted to bilateral legs at the level of mid-calf around the legs. +2 pitting edema of b/l legs, mild diffuse erythema of legs b/l, no open lesions, no fluctuance, no purulence, no malodor Debrided hyperkeratotic callus was noted to plantar aspect of Right foot sub- met 1st and medial aspect of Left 1st metatarsal head. No erythema or sign of acute infection is noted from these areas. VASC: lightly palpable pedal pulses b/l, TG wnl, CFT < 3 sec to all digits NEURO: grossly diminished ORTHO: mild pain to palpation of legs b/l - Neurological Exam Neurological Exam: Alert, Awake, Oriented x3 - Psychiatric Exam Psychiatric exam: Normal Affect, Normal Mood - Skin Skin Exam: Normal Color, Warm Assessment and Plan - Assessment and Plan (Free Text) Assessment: 76 year old female patient presents with bilateral lower extremity cellulitis Plan: Patient evaluated and treated at bedside Labs and chart reviewed; afebrile Lotrisone cream applied to bilateral legs Applied DSD and PEGGY to b/l lower extremities Continue IV abx as per ID Podiatry will continue to monitor while patient remains in house <Timothy Neal - Last Filed: 11/12/16 08:16> Objective - Vital Signs/Intake and Output Vital Signs (last 24 hours): Temp Pulse Resp BP Pulse Ox 98.5 F 76 20 106/56 L 95 11/11/16 06:00 11/11/16 09:45 11/11/16 06:00 11/11/16 16:32 11/11/16 06:00 - Labs Labs: 11/11/16 07:00 11/11/16 07:00 PT 12.0 Seconds (9.9-11.8) H 11/03/16 09:12 INR 1.11 (0.93-1.08) H 11/03/16 09:12 APTT 28.2 Seconds (23.7-30.8) 11/03/16 09:12 Attending/Attestation - Attestation I have personally seen and examined this patient.: Yes I have fully participated in the care of the patient.: Yes I have reviewed all pertinent clinical information, including history, physical exam and plan: Yes
[2016-11-10 16:48] VITALS: PULSE 76; TEMP 98.5
--- NOTE | 2016-11-10 20:48 | PN ---
DATE: 11/10/2016 The patient is in room 366, bed 1. REASON FOR CONSULTATION AND FOLLOWUP: Swelling of legs, history of coronary artery disease. HISTORY OF PRESENT ILLNESS: A 76-year-old female with past medical history significant for congestiv e heart failure, cirrhosis of liver, COPD, asthma, coronary artery disease, admitted with complaint o f swelling of legs. The patient also has shortness of breath. The patient has now improved clinical ly and swelling of legs has been also decreasing. The patient complained of localized pain with loca l tenderness on the chest which is musculoskeletal pain which is much better today as compared to yes terday. PHYSICAL EXAMINATION: VITAL SIGNS: Blood pressure 124/49, respirations 20, pulse 76, temperature 98.5. HEAD: Normocephalic. EYES: Pupils normal. Conjunctivae are slightly pale. NECK: JVP low. Carotids equal. THORAX: AP diameter normal. LUNGS: Clear. CARDIOVASCULAR: Ejection systolic murmur grade III/. No rub. ABDOMEN: Soft, nontender, no organomegaly. Bowel sounds normal. EXTREMITIES: No clubbing, no cyanosis. LABORATORY DATA: WBC 5.3, hemoglobin 10.5, hematocrit 31.3, platelet 99. Random sugar 247. Sodium 135, potassium 4.4, BUN 44, creatinine 1.0. Total bilirubin 2.4, AST 48, ALT 56. DIAGNOSES: Swelling of legs, cirrhosis of liver, hypoproteinemia, coronary artery disease, status po st transluminal coronary angioplasty in the past. Echo on 10/12/2015 showed severe aortic stenosis, di astolic dysfunction, mild to moderate aortic regurg, mild to moderate tricuspid regurgitation. PLAN: We will continue present therapy. The patient in the past was offered TAVR surgery for aortic stenosis. She and the family refused and they opted for medical management. We will continue prese nt therapy and we will follow with you. Pablo Shah MD cc: [id number] TT: 11/10/2016 20:47:46 Confirmation # [id number] Dictation # [id number] [id number]
[2016-11-10] MEDS: Tiotropium 18 mcg Cap For Inhalation IH SCH (21:45)
--- NOTE | 2016-11-10 22:35 | PN ---
DATE: 11/10/2016 REFERRING PHYSICIAN: Dr. Rg. SUBJECTIVELY: She is sitting side of the bed having dinner. Night was unremarkable. Does not use C PAP. No headaches, no rhinitis. No nausea, no vomiting. Decreased shortness of breath. No abdomin al pain. Decreased leg swelling. OBJECTIVELY: No acute distress. Temp is 98, heart rate is 76, respiratory rate is 20, blood pressure 124/49, pulse ox 99% on room air . HEENT: Moist mucous membranes. Small oral cavity. Crowded airway. NECK: Supple, no JVD. LUNGS: Have a fair airflow with few rhonchi. HEART: S1 and S2. ABDOMEN: Soft, nontender. No organomegaly. EXTREMITIES: Has Ming wraps of lower extremities. NEUROLOGICALLY: Awake, alert. Follows simple command. MEDICATIONS: She is on Mucomyst 20% inhaled q. 12 hours, Aldactone 25 mg twice a day, Brovana 15 mcg inhaled twice a day, Dilaudid 0.25 mg q. 4 hours p.r.n., doxycycline 100 mg q. 12 hours, potassium 2 0 mEq q. 12 hours, Lasix 80 mg q. 8 hours, metoprolol tartrate 12.5 mg daily, Lotrisone affected area twice a day, prednisone 20 mg daily, Protonix 40 mg daily, Pulmicort inhaled twice a day, Spiriva 1 capsule inhaled daily, Zosyn 3.375 g q. 8 hours. LABORATORY DATA: Reviewed. Blood sugar today is 247. MICROBIOLOGY: Blood culture has been negative. IMPRESSION AND PLAN: Cardiomyopathy with severe aortic stenosis, coronary artery disease, heart fail ure, chronic obstructive lung disease, sleep apnea syndrome, noncompliant with the CPAP, pulmonary hy pertension, cryptogenic cirrhosis with ascites, lower extremity cellulitis and edema, history of panc ytopenia, esophagitis, , portal hypertension. Pulmonary point of view, doing okay. Encouraged CPAP use, keep head 45 degrees. Decrease prednisone to 10 mg daily. Continue diuretics. Follow up labs in the morning. Continue rehab. Thank you, and will follow with you. Pablo Cantor MD cc: [id number] TT: 11/10/2016 22:34:28 Confirmation # [id number] Dictation # [id number]
--- NOTE | 2016-11-10 23:55 | CP.PCM.PN ---
Subjective - Date & Time of Evaluation Date of Evaluation: 11/10/16 Time of Evaluation: 23:54 - Subjective Subjective: S:Patient was seen at bedside. Requested a sleeping pill. Has no other complaints now. Denies cp,sob. Pertinent medical record was reviewed. O: Last Vital Signs 3 Temp 98.5 F 11/10/16 16:00 Pulse 76 11/10/16 16:00 Resp 20 11/10/16 16:00 BP 129/49 L 11/11/16 06:49 Pulse Ox 99 11/10/16 16:00 Awake, alert,not in distress. LUNGS:Normal breathing pattern. NEURO:Speech normal. A:Adjustment insomnia. P:Benadry as ordered. Objective - Vital Signs/Intake and Output Vital Signs (last 24 hours): Temp Pulse Resp BP Pulse Ox 98.5 F 76 20 123/47 L 99 11/10/16 16:00 11/10/16 16:00 11/10/16 16:00 11/10/16 21:46 11/10/16 16:00 Intake and Output: 11/10/16 11/11/16 18:59 06:59 Intake Total 600 420 Output Total 300 300 Balance 300 120 - Medications Medications: Current Medications Acetylcysteine (Acetylcysteine 20%) 4 ml IH [id number] [facility] Last Admin: 11/10/16 20:18 Dose: 4 ml Arformoterol Tartrate (Brovana) 15 mcg IH [id number] [facility] Last Admin: 11/10/16 20:18 Dose: 15 mcg Betamethasone/Clotrimazole (Lotrisone) 0 gm TOP BID [facility] Last Admin: 11/10/16 17:14 Dose: 1 applic Budesonide (Pulmicort Respules) 0.5 mg IH [id number] [facility] Last Admin: 11/10/16 20:19 Dose: 0.5 mg Furosemide (Lasix) 80 mg IVP Q8 [facility] Last Admin: 11/10/16 21:46 Dose: 80 mg Hydromorphone HCl (Dilaudid) 0.25 mg IVP Q4H PRN PRN Reason: Pain, moderate (4-7) Last Admin: 11/09/16 22:39 Dose: 0.25 mg Doxycycline Hyclate 100 mg/ (Sodium Chloride) 100 mls @ 100 mls/hr IVPB Q12 [facility] PRN Reason: Protocol Stop: 11/11/16 10:01 Last Admin: 11/10/16 21:45 Dose: 100 mls/hr Insulin Human Regular (Humulin R Low) 0 units SC ACHS [facility] PRN Reason: Protocol Last Admin: 11/10/16 22:14 Dose: Not Given Metoprolol Tartrate (Lopressor) 12.5 mg PO DAILY [facility] Last Admin: 11/10/16 09:28 Dose: Not Given Pantoprazole Sodium (Protonix Ec Tab) 40 mg PO 0630 [facility] Last Admin: 11/10/16 09:30 Dose: Not Given Potassium Chloride (K-Dur 20 Meq Er Tab) 20 meq PO Q12 [facility] Last Admin: 11/10/16 21:45 Dose: 20 meq Prednisone (Prednisone Tab) 10 mg PO DAILY [facility] Spironolactone (Aldactone) 25 mg PO BID [facility] Last Admin: 11/10/16 17:13 Dose: 25 mg Tiotropium [place] (Spiriva) 18 mcg IH HS [facility] Last Admin: 11/10/16 21:45 Dose: 18 mcg - Labs Labs: 11/09/16 06:30 11/09/16 06:30 PT 12.0 Seconds (9.9-11.8) H 11/03/16 09:12 INR 1.11 (0.93-1.08) H 11/03/16 09:12 APTT 28.2 Seconds (23.7-30.8) 11/03/16 09:12
--- NOTE | 2016-11-11 02:58 | PN ---
DATE: 11/10/2016 The patient is a 76-year-old female. SUBJECTIVE: The patient was seen and examined on the bedside, sitting comfortably. No nausea, vomiting, or diarrhea. No hematuria or hematochezia. No headache. No dizziness. Still has swelling of the leg, having Ming bandage. Cough is better. Shortness of breath is better. Getting physical therapy. PHYSICAL EXAMINATION: VITAL SIGNS: Temperature 98, heart rate 76, respiratory rate 20, blood pressure 124/79, and pulse oximeter 99% on room air. HEAD: Normocephalic, atraumatic. EYES: PERRLA. Extraocular muscles intact. Conjunctivae pink. Eyelids unremarkable. Nose patent. Mucous membranes moist. NECK: Supple. No carotid bruit, JVD, or thyromegaly. CHEST: Bilaterally symmetrical. HEART: S1, S2 positive. LUNGS: Has fair airflow with few rhonchi. ABDOMEN: Soft, nontender. No organomegaly. EXTREMITIES: Has Ming wraps of lower extremities. NEUROLOGIC: The patient is awake, alert, and follows simple commands. MEDICATIONS: Mucomyst, Aldactone, Brovana, Dilaudid, doxycycline, potassium, Lasix, metoprolol, Lotrisone, prednisone, Protonix, Pulmicort, Spiriva, Zosyn. LABORATORY DATA: We do not have recent labs today, but I reviewed old labs. Blood sugar is 247. ASSESSMENT AND PLAN: The patient is a 76-year-old lady with cardiomyopathy with severe aortic stenosis, coronary artery disease, congestive heart failure, chronic obstructive lung disease, sleep apnea syndrome, noncompliant with continuous positive airway pressure, has history of pancytopenia, pulmonary hypertension, cryptogenic cirrhosis with ascites, lower extremity cellulitis, edema, esophagitis, gastritis, portal hypertension , encourage continuous positive airway pressure. Patient is getting tapering dose of steroids. Continue Mucomyst, Aldactone, Brovana, Dilaudid p.r.n. for pain, doxycycline. The patient is getting antibiotic. Lasix three times a day. Maybe we have to cut down on diet. Lotrisone to affected area. Podiatry is on the case. We will follow up. Kristin Rg MD cc: [id number] TT: 11/11/2016 02:57:01 Confirmation # [id number] Dictation # [id number] MTDD
[2016-11-11] MEDS ORDERED: Piperacillin/Tazobact 3.375 gm 100 ML IVPB STA (05:52)
[2016-11-11] MEDS: Pantoprazole 40 mg EC Tab PO SCH (06:06)
--- NOTE | 2016-11-11 06:49 | CP.PCM.PN ---
Subjective - Date & Time of Evaluation Date of Evaluation: 11/11/16 Time of Evaluation: 06:48 - Subjective Subjective: # 22 angiocath was inserted in left foreram volar aspect. Dx:Poor venous access. Objective - Vital Signs/Intake and Output Vital Signs (last 24 hours): Temp Pulse Resp BP Pulse Ox 98.5 F 76 20 123/47 L 99 11/10/16 16:00 11/10/16 16:00 11/10/16 16:00 11/10/16 21:46 11/10/16 16:00 Intake and Output: 11/10/16 11/11/16 18:59 06:59 Intake Total 600 420 Output Total 300 300 Balance 300 120 - Medications Medications: Current Medications Acetylcysteine (Acetylcysteine 20%) 4 ml IH [id number] [facility] Last Admin: 11/10/16 20:18 Dose: 4 ml Arformoterol Tartrate (Brovana) 15 mcg IH [id number] [facility] Last Admin: 11/10/16 20:18 Dose: 15 mcg Betamethasone/Clotrimazole (Lotrisone) 0 gm TOP BID [facility] Last Admin: 11/10/16 17:14 Dose: 1 applic Budesonide (Pulmicort Respules) 0.5 mg IH [id number] [facility] Last Admin: 11/10/16 20:19 Dose: 0.5 mg Furosemide (Lasix) 80 mg IVP Q8 [facility] Last Admin: 11/10/16 21:46 Dose: 80 mg Hydromorphone HCl (Dilaudid) 0.25 mg IVP Q4H PRN PRN Reason: Pain, moderate (4-7) Last Admin: 11/09/16 22:39 Dose: 0.25 mg Doxycycline Hyclate 100 mg/ (Sodium Chloride) 100 mls @ 100 mls/hr IVPB Q12 [facility] PRN Reason: Protocol Stop: 11/11/16 10:01 Last Admin: 11/10/16 21:45 Dose: 100 mls/hr Insulin Human Regular (Humulin R Low) 0 units SC ACHS [facility] PRN Reason: Protocol Last Admin: 11/10/16 22:14 Dose: Not Given Metoprolol Tartrate (Lopressor) 12.5 mg PO DAILY [facility] Last Admin: 11/10/16 09:28 Dose: Not Given Pantoprazole Sodium (Protonix Ec Tab) 40 mg PO 0630 [facility] Last Admin: 11/11/16 06:06 Dose: 40 mg Potassium Chloride (K-Dur 20 Meq Er Tab) 20 meq PO Q12 [facility] Last Admin: 11/10/16 21:45 Dose: 20 meq Prednisone (Prednisone Tab) 10 mg PO DAILY [facility] Spironolactone (Aldactone) 25 mg PO BID [facility] Last Admin: 11/10/16 17:13 Dose: 25 mg Tiotropium [place] (Spiriva) 18 mcg IH HS [facility] Last Admin: 11/10/16 21:45 Dose: 18 mcg - Labs Labs: 11/09/16 06:30 11/09/16 06:30 PT 12.0 Seconds (9.9-11.8) H 11/03/16 09:12 INR 1.11 (0.93-1.08) H 11/03/16 09:12 APTT 28.2 Seconds (23.7-30.8) 11/03/16 09:12
[2016-11-11 07:29] LABS: ALKALINE PHOSPHATASE 60 U/L (38-133); ALT/SGPT 67 U/L (7-56); AST/SGOT 54 U/L (15-39); BILIRUBIN,TOTAL 2.9 mg/dL (0.2-1.3); BLOOD UREA NITROGEN 49 mg/dL (7-21); CALCIUM 9.2 mg/dL (8.4-10.5); CARBON DIOXIDE 31 mmol/L (21-33); CHLORIDE 98 mmol/L (98-107); GFR AFRICAN-AMERICAN > 60; GLUCOSE,RANDOM 80 mg/dL (70-110); POTASSIUM 4.1 mmol/L (3.6-5.0); SODIUM 136 mmol/L (132-148); TOTAL PROTEIN 6.2 g/dL (5.8-8.3)
[2016-11-11 07:35] LABS: HEMATOCRIT 33.2 % (36.0-48.0); MEAN CELL VOLUME 95.7 fL (80.0-105.0); MEAN CORPUSCULAR HEMOGLOBIN 31.7 pg (25.0-35.0); MEAN CORPUSCULAR HGB CONC 33.1 g/dl (31.0-37.0); MEAN PLATELET VOLUME 9.7 fl (7.0-11.0); RED CELL DISTRIBUTION WIDTH 14.9 % (11.5-14.5); WHITE BLOOD COUNT 5.9 10^3/ul (4.5-11.0)
[2016-11-11] MEDS: Acetylcysteine 20% Inhal Soln (4ml) IH SCH (08:11)
[2016-11-11] MEDS: Budesonide 0.5 mg/2 ml Inhal Susp UD IH SCH (08:11)
[2016-11-11] MEDS: Arformoterol 15 mcg/2 ml Inh Sol IH SCH (08:11)
[2016-11-11] MEDS: Insulin Reg-LOW-Coverage SC SCH ×2 (09:44→12:26)
[2016-11-11] MEDS: Potassium Chloride 20 mEq ER Tab PO SCH (09:44)
[2016-11-11] MEDS: Clotrimazole/Betamethasone Cream(15 gm) TOP SCH (09:45)
[2016-11-11 10:32] VITALS: O2SAT 95
[2016-11-11 16:39] VITALS: BP 106/56
--- NOTE | 2016-11-11 17:25 | PN ---
DATE: 11/11/2016 The patient is in room 366, bed 1. REASON FOR CONSULTATION AND FOLLOWUP: Swelling of legs, history of coronary artery disease, chest pa in with local tenderness. HISTORY OF PRESENT ILLNESS: A 76-year-old female with past medical history significant for congestiv e heart failure, cirrhosis of liver, COPD, asthma, coronary artery disease, admitted with a complaint of swelling of legs. The patient also had shortness of breath. The patient clinically improved wit h swelling of legs and shortness of breath and then she complained of localized chest pain which has local tenderness at the area of the pain, so it is musculoskeletal pain which is also decreasing now. PHYSICAL EXAMINATION: VITAL SIGNS: Blood pressure 129/49, respirations 20, pulse 76, temperature 98.5. HEAD: Normocephalic. EYES: Pupils normal. Conjunctivae slightly pale. NECK: JVP low. Carotid equal. THORAX: AP diameter normal. LUNGS: Clear. CARDIOVASCULAR: S1, S2. Grade III/ ejection systolic murmur, no rub. ABDOMEN: Soft. Bowel sounds normal. EXTREMITIES: No clubbing, no cyanosis. LABORATORY DATA: WBC 5.9, hemoglobin 11.0, hematocrit 33.2, platelet 95, sodium 136, potassium 4.1, BUN 49, creatinine 0.9, bilirubin 2.9, AST 54, ALT 67, total protein 6.2, albumin 3.1. DIAGNOSES: Swelling of legs, cirrhosis of liver, coronary artery disease, status post transluminal c oronary angioplasty in the past. Echo on 10/12/2015 showed severe aortic stenosis, diastolic dysfuncti on, mild to moderate aortic regurgitation, mild to moderate tricuspid regurgitation. PLAN: In the past, patient was offered TAVR and she refused at that time. Now, we are continuing th e medical therapy, spironolactone 25 b.i.d., potassium 20 mEq q. 12 hours, furosemide 80 IV q. 8 hour s, metoprolol tartrate 12.5 p.o. daily. Zosyn 3.375 gram 1 time dose was given. Prednisone 10 mg p. o. daily and treat the chest pain symptomatically, musculoskeletal pain. Pablo Shah MD cc: [id number] TT: 11/11/2016 17:24:31 Confirmation # [id number] Dictation # [id number] tn
--- NOTE | 2016-11-11 20:55 | PN ---
DATE: 11/11/2016 REFERRING PHYSICIAN: Dr. Rg. SUBJECTIVELY: She is sitting side of the bed, feels better. No headache, no rhinitis, no cough, no sputum production. No nausea, no vomiting. Decreased leg swelling. Has Ming wraps on the lower extr emity. OBJECTIVELY: In no acute distress. Temp is 98, heart rate 76, respiratory rate is 20, blood pressure 106/56, pulse ox 97% room air. HENT: Moist mucous membrane. No ulcer or oral thrush noted. NECK: Supple. No JVD. LUNGS: Has a fair airflow with few rhonchi. HEART: S1, S2. ABDOMEN: Soft, nontender. No organomegaly. EXTREMITIES: Has Ming wraps on both lower extremities. Both feet are swollen. NEUROLOGICALLY: Awake, alert. Follows simple command. MEDICATIONS: Reviewed. No new medication reported since yesterday. LABORATORY DATA: Shows hemoglobin 11.0, hematocrit 33.2, WBC 5.9, and platelet is 95. Sodium 136, p otassium 4.1, chloride 98, bicarbonate 31, BUN 49, creatinine 0.9, glucose 80, calcium is 9.2. AST 5 4, ALT 67, alk phos is 60, albumin is 3.1. MICROBIOLOGY: Blood cultures have been negative. IMPRESSION AND PLAN: Cardiomyopathy with severe aortic stenosis and coronary artery disease, heart f ailure, chronic obstructive lung disease, sleep apnea syndrome, refused CPAP use. Pulmonary hyperten bridger, cryptogenic cirrhosis with ascites, portal hypertension, recurrent lower extremity edema, cellu litis, history of pancytopenia, esophagitis, gastritis. Spoke to the patient in detail about her disease, importance of CPAP. She understands but refused to use it. Taper off prednisone next few days. Inhaled bronchodilator. Decrease diuretics to 40 mg L asix q. 8 hours, weekly bases. Fall precaution. Antibodies as per infectious diseases. Thank you, and will follow. Pablo Cantor MD cc: [id number] TT: 11/11/2016 20:54:21 Confirmation # [id number] Dictation # [id number]
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
--- NOTE | 2016-11-14 10:37 | PQF DEBRID ---
This form is a permanent part of the medical record Dr. Neal, As per Dr. Kenney progress note on 11/08, the hyperkeratotic callus of right plantar aspect of the foot was debrided. Please clarify if this is a non- excisional OR excisional debridement. Thank you. Clarification of your documentation is requested to better reflect the severity of illness and intensity of treatment of your patient. Indicators present [x] Documentation of wound care / debridement- hyperkeratotic tissue [] Technique: [] [] Instrument used:[] [x] Nature of Tissue Removed:[] hyperkeratotic lesion [] Appearance of Wound:[] [] Size of Wound: [] 1.0cm x1.2cm [] Depth of Debridement: [] superficial [] Other: [] Location in the medical record that reflects the above clinical findings: [] Other Treatment Provided: [] PHYSICIAN'S RESPONSE Based on your medical judgment, can you further clarify the precise NATURE, DEPTH, EXTENT and / or METHODS of wound debridement utilized in this case: [x] EXCISIONAL debridement use of a scalpel / blade to cut away tissue Depth (subcutaneous, fascia, muscle, soft tissue and bone) [] Size of Wound [] NON-EXCISIONAL debridement chemical, scrubbing, trimming with a scissor/ versajet [] Other, please indicate: [] [] If unable to determine, please check the box, sign and date. In responding to this query, please exercise your independent professional judgment. The fact that a question is asked does not imply that any particular answer is desired or expected. Thank you for your clarification on this documentation. If you have any questions please call:[ ] * Thank you, [ ]MINA MANRIQUEZprism inspector ARACELI
--- NOTE | 2016-12-10 20:27 | DS ---
CHIEF COMPLAINT: Swelling of the leg, pain in the feet. HISTORY OF PRESENT ILLNESS: The patient is a 76-year-old lady with past medical history of congestive heart failure, cirrhosis of the liver, COPA, asthma, multiple admissions. Actually came in my office with swelling of the leg and ulcers on the feet. I sent patient to the Emergency Room. The patient was having swelling of the legs and feet pain. Denied nausea, vomiting, diarrhea. We admitted the patient. Did extremity ultrasound. Consult was called with Dr. Guillermo, Dr. Eugenio Richard for infectious disease, Dr. Garcia for podiatry, Dr. Cantor saw the patient. She got better. Then was sent to [facility] for rehab and continuity of her care. PAST MEDICAL HISTORY: Coronary artery disease, congestive heart failure, hypertension, diabetes mellitus. FAMILY HISTORY: Father and mother noncontributory. HABITS: No smoking, no drugs, no ethanol. ALLERGIES: The patient is not allergic to any medications. HOME MEDICATIONS: Reviewed by me. REVIEW OF SYSTEMS: The patient was seen and examined on the bedside on 2016. Looks comfortable, getting better. No nausea, vomiting, or diarrhea. No fever, no chills. Feet pain is better. No headache, no rhinitis. No coughing, no sputum production. Has Ming wraps on the lower extremity. PHYSICAL EXAMINATION: VITAL SIGNS: Temperature is 98, heart rate 76, respiratory rate 20, blood pressure 106/56, and pulse oximetry is 97% on room air. HEENT: Head normocephalic, atraumatic. Eyes: PERRLA. Extraocular muscles intact. Conjunctivae clear. Nose patent. Mucous membranes moist. NECK: Supple. No carotid bruit, JVD or thyromegaly. CHEST: Bilaterally symmetrical. HEART: S1, S2 positive. LUNGS: Has fair airflow with few rhonchi. HEART: S1, S2 positive. ABDOMEN: Soft. No organomegaly. EXTREMITIES: Has Ming bandage on both extremities, both feel swollen but getting better. NEUROLOGIC: Awake, alert, moving all 4 extremities. No focal deficits. MEDICATIONS: Reviewed by me. LABORATORY DATA: Hemoglobin 11.0, hematocrit 33.2, white blood cells 5.9, and platelets 59. Sodium 136, potassium 4.1, BUN noted , creatinine 0.9. AST 54, ALT 67. ASSESSMENT AND PLAN: The patient is a 76-year-old female with cardiomyopathy with history of aortic stenosis, coronary artery disease, congestive heart failure, chronic obstructive lung disease, sleep apnea syndrome, BiPAP use, noncompliant, cirrhosis of the liver, pancytopenia, history of ascites, portal hypertension, recurrent lower extremity edema, cellulitis, history of esophagitis, gastritis and anemia. Dr. Cantor had a length of time discussion with the patient for the necessity of using CPAP. She understands, but refusing to use it. The patient got tapering doses of the steroids and inhaled bronchodilators. She was taking high dose of diuretics, so then we decreased. Fall precautions. Was transferred to subacute rehabilitation in [facility] for continuity of care and for physical therapy because right now she is not able to do her ADLs. She is living alone and we are giving the time for her body to get reconditioning and she can do her adl at home. We will follow up. Kristin Rg MD cc: [id number] TT: 12/10/2016 20:26:44 jn ARACELI
== END 2016-11-11 17:35 | DRG 854 ==
LOC: ED 08:00 → ERH 10:51 → 2RSO 17:22 → 3RSO 11-05 06:30 → 3RNO 11-09 15:58
PROVIDERS: ADMIT Internal Medicine; ATTEND Internal Medicine
PROC: 0HBMXZZ Excision of Right Foot Skin, External Approach (ICD-10-PCS; principal; 2016-11-08)
DX: A41.9 Sepsis, unspecified organism (principal); L03.115 Cellulitis of right lower limb; L03.116 Cellulitis of left lower limb; D61.818 Other pancytopenia; I42.9 Cardiomyopathy, unspecified; R18.8 Other ascites; K76.6 Portal hypertension; I13.0 Hypertensive heart and chronic kidney disease with heart failure and stage 1 through stage 4 chronic kidney disease, or unspecified chronic kidney disease; I50.9 Heart failure, unspecified; J44.1 Chronic obstructive pulmonary disease with (acute) exacerbation; E11.22 Type 2 diabetes mellitus with diabetic chronic kidney disease; E88.09 Other disorders of plasma-protein metabolism, not elsewhere classified; E11.65 Type 2 diabetes mellitus with hyperglycemia; K74.69 Other cirrhosis of liver; J45.909 Unspecified asthma, uncomplicated; K29.70 Gastritis, unspecified, without bleeding; I25.10 Atherosclerotic heart disease of native coronary artery without angina pectoris; N18.9 Chronic kidney disease, unspecified; F32.9 Major depressive disorder, single episode, unspecified; E87.6 Hypokalemia; E11.42 Type 2 diabetes mellitus with diabetic polyneuropathy; G47.33 Obstructive sleep apnea (adult) (pediatric); I27.2 Other secondary pulmonary hypertension; I35.0 Nonrheumatic aortic (valve) stenosis; K29.80 Duodenitis without bleeding; K20.9 Esophagitis, unspecified; I45.10 Unspecified right bundle-branch block; L84 Corns and callosities; F51.02 Adjustment insomnia; R29.6 Repeated falls; Z87.891 Personal history of nicotine dependence; Z79.84 Long term (current) use of oral hypoglycemic drugs; Z91.19 Patient's noncompliance with other medical treatment and regimen

== ENCOUNTER 2017-01-26 10:51 | Emergency (ER) | payer MEDICARE ==
[2017-01-26 10:52] VITALS: BMI 34.3
[2017-01-26 11:01] VITALS: RESP 16; TEMP 98.7; O2SAT 96
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
[2017-01-26 11:46] LABS: ADD MANUAL DIFF? NO
[2017-01-26 12:24] LABS: BASO # 0.02 K/mm3 (0.0-2.0); BASO % 0.6 % (0.0-3.0); EOS # 0.1 (0.0-0.7); EOS % 1.9 % (1.5-5.0); GRAN # 1.71 (1.4-6.5); GRAN % 54.9 % (50.0-68.0); HEMATOCRIT 32.1 % (36.0-48.0); LYMPH # 0.9 (1.2-3.4); LYMPH % 29.5 % (22.0-35.0); MEAN CELL VOLUME 88.9 fL (80.0-105.0); MEAN CORPUSCULAR HEMOGLOBIN 30.2 pg (25.0-35.0); MEAN PLATELET VOLUME 9.3 fl (7.0-11.0); MONO # 0.4 (0.1-0.6); MONO % 13.1 % (1.0-6.0); PLATELET COUNT 81 10^3/uL (120.0-450.0); RED CELL DISTRIBUTION WIDTH 15.8 % (11.5-14.5); WHITE BLOOD COUNT 3.1 10^3/ul (4.5-11.0)
[2017-01-26 12:35] LABS: ALB/GLOB RATIO 1.1 (1.1-1.8); BILIRUBIN,TOTAL 2.9 mg/dL (0.2-1.3); CALCIUM 9.4 mg/dL (8.4-10.5); INR 1.15 (0.93-1.08); POTASSIUM 4.1 mmol/L (3.6-5.0); TOTAL PROTEIN 5.7 g/dL (5.8-8.3)
[2017-01-26] MEDS ORDERED: Oxymetazoline 0.05% Nasal Spray (30 ml) NS STA (12:55)
[2017-01-26] MEDS ORDERED: Silver Nitrate Topical - Stick TOP ONE (13:16)
[2017-01-26 19:36] VITALS: BP 122/54; PULSE 70
--- NOTE | 2017-01-27 18:20 | CARD ---
APPROVED REPORT EKG Measurement Heart [id number] <Conclusion> Normal sinus rhythm Left axis deviation Right bundle branch block Moderate voltage criteria for LVH, may be normal variant Abnormal ECG
== END 2017-01-26 14:50 | disposition home or self-care (01) ==
LOC: ED 10:51
DX: R04.0 Epistaxis (principal)

== ENCOUNTER 2017-03-19 00:06 | Inpatient (IN) | payer MEDICARE ==
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
[2017-03-19 02:03] VITALS: BMI 31.4
[2017-03-19 03:10] LABS: ADD MANUAL DIFF? NO
[2017-03-19 03:21] LABS: BASO # 0.03 K/mm3 (0.0-2.0); BASO % 0.9 % (0.0-3.0); EOS # 0.1 (0.0-0.7); GRAN # 1.78 (1.4-6.5); GRAN % 54.3 % (50.0-68.0); HEMATOCRIT 29.4 % (36.0-48.0); LYMPH # 0.9 (1.2-3.4); LYMPH % 27.1 % (22.0-35.0); MEAN CELL VOLUME 90.5 fl (80.0-105.0); MEAN CORPUSCULAR HEMOGLOBIN 31.4 pg (25.0-35.0); MEAN CORPUSCULAR HGB CONC 34.7 g/dl (31.0-37.0); MEAN PLATELET VOLUME 9.6 fl (7.0-11.0); MONO # 0.5 (0.1-0.6); MONO % 13.7 % (1.0-6.0); PLATELET COUNT 78 10^3/uL (120.0-450.0); RED CELL DISTRIBUTION WIDTH 15.5 % (11.5-14.5); WHITE BLOOD COUNT 3.3 10^3/ul (4.5-11.0)
[2017-03-19 03:22] LABS: VENOUS BLOOD GAS BASE EXCESS 2.7 mmol/L (0.0-2.0); VENOUS BLOOD PH 7.38 (7.32-7.43)
[2017-03-19 03:26] LABS: INR 1.18 (0.93-1.08); PARTIAL THROMBOPLASTIN TIME 28.4 Seconds (23.7-30.8)
[2017-03-19 03:32] LABS: ALB/GLOB RATIO 1.2 (1.1-1.8); ALKALINE PHOSPHATASE 61 U/L (38-133); ALT/SGPT 26 U/L (7-56); AST/SGOT 37 U/L (15-39); BILIRUBIN,TOTAL 4.1 mg/dL (0.2-1.3); BLOOD UREA NITROGEN 22 mg/dL (7-21); CALCIUM 8.8 mg/dL (8.4-10.5); CARBON DIOXIDE 26 mmol/L (21-33); CHLORIDE 103 mmol/L (98-107); GFR AFRICAN-AMERICAN > 60; GLUCOSE,RANDOM 95 mg/dL (70-110); POTASSIUM 3.4 mmol/L (3.6-5.0); SODIUM 138 mmol/L (132-148); TOTAL PROTEIN 5.6 g/dL (5.8-8.3)
[2017-03-19] MEDS ORDERED: Potassium Chloride 20 mEq ER Tab PO STA (04:42)
[2017-03-19] MEDS ORDERED: Vancomycin 1gm in NS 250ml 1 GM/250 ML BAG IVPB STA (04:45)
[2017-03-19 06:16] LABS: URINE BILIRUBIN NEGATIVE (NEGATIVE); URINE BLOOD NEGATIVE (NEGATIVE); URINE GLUCOSE (UA) NEGATIVE (NEGATIVE); URINE KETONE NEGATIVE (NEGATIVE); URINE LEUKOCYTE ESTERASE NEGATIVE Leu/uL (NEGATIVE); URINE PROTEIN NEGATIVE mg/dL (<30 mg/dL)
[2017-03-19 06:18] LABS: URINE APPEARANCE CLEAR (CLEAR); URINE COLOR YELLOW (YELLOW)
[2017-03-19] MEDS: HYDROmorphone 0.5 mg/0.5 ml ISec IVP PRN ×2 (10:36→16:56)
[2017-03-19] MEDS: cefTRIAXone 1 gm 1 G/100 ML BAG IVPB SCH (10:37)
--- NOTE | 2017-03-19 11:57 | RAD ---
PROCEDURE: Radiographs of the pelvis and bilateral hips HISTORY: fall/injury COMPARISON: None. FINDINGS: BONES: Pelvis: Unremarkable. Right hip:Unremarkable. Left hip:Unremarkable. JOINTS: Right hip: Mild degenerative change. Left hip: Symmetrical degenerative change. Sacroiliac Joints: Unremarkable. Pubic symphysis: Unremarkable. SOFT TISSUES: Normal. OTHER FINDINGS: None. IMPRESSION: No acute findings related to/accounting for the clinical presentation. No preliminary report provided by emergency department personnel.
--- NOTE | 2017-03-19 11:58 | RAD ---
HISTORY: Sepsis Patient COMPARISON: 11/03/2016. FINDINGS: LUNGS: No active pulmonary disease. PLEURA: No significant pleural effusion identified, no pneumothorax apparent. CARDIOVASCULAR: Cardiomegaly/pulmonary vascular congestion. OSSEOUS STRUCTURES: No significant abnormalities. VISUALIZED UPPER ABDOMEN: Normal. OTHER FINDINGS: None. IMPRESSION: No active pulmonary disease. No significant interval change compared to the prior examination(s).
--- NOTE | 2017-03-19 12:51 | US ---
HISTORY: Leg pain and swelling. Evaluate for DVT PHYSICIAN(S): Praveen Augustine MD. TECHNIQUE: Duplex sonography and color-flow Doppler with graded compression were used to evaluate the deep venous systems of both lower extremities. The exam is limited by body habitus and edema. The tibial veins are not adequately evaluated. FINDINGS: The visualized deep venous systems of both lower extremities are sonographically normal and compressible. Normal wave forms and augmentation are seen. There is no sonographic evidence for deep venous thrombosis in the visualized segments of both lower extremities. IMPRESSION: No sonographic evidence for deep venous thrombosis in the visualized segments of both lower extremities. Very limited study.
--- NOTE | 2017-03-19 13:52 | CARD ---
APPROVED REPORT EKG Measurement Heart [id number] <Conclusion> Normal sinus rhythm Possible Left atrial enlargement Left axis deviation Right bundle branch block Abnormal ECG
[2017-03-19] MEDS: Albuterol-Ipratrop 3 mg / 0.5 (3 ml) UD IH SCH ×2 (14:40→20:06)
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
[2017-03-19] MEDS: Vancomycin 1gm in NS 250ml 1 GM/250 ML BAG IVPB SCH (16:53)
--- NOTE | 2017-03-19 21:00 | CT ---
EXAM: CT Abdomen and Pelvis Without and With Intravenous Contrast CLINICAL HISTORY: 76 years old, female; Pain; Abdominal pain; Generalized; Prior surgery; Surgery date: 6+ months; Surgery type: Appendectom cholecystectomy; Additional info: Abdominal/ pelvic pain TECHNIQUE: Axial computed tomography images of the abdomen and pelvis without and with intravenous contrast. All CT scans at this facility use one or more dose reduction techniques, viz.: automated exposure control; ma/kV adjustment per patient size (including targeted exams where dose is matched to indication; i.e. head); or iterative reconstruction technique. Coronal and sagittal reformatted images were created and reviewed. CONTRAST: 100 mL of VISI 320 administered intravenously. EXAM DATE/TIME: 03/19/2017 5:00 PM COMPARISON: CT GUIDED LIVER BIOPSY 07/10/2012 12:00:00 AM FINDINGS: Artifacts: Streak artifact degrades image quality. Lower thorax: Heart size is normal. There are coronary calcifications. There is a small pericardial effusion. There are bilateral pleural effusions. There is bibasilar airspace disease. There is a hiatal hernia. ABDOMEN: Liver: Hepatic contours are nodular. Gallbladder and bile ducts: Gallbladder is surgically absent. Proximal common duct is dilated, 2.1 cm in diameter. There is distal tapering. Pancreas: unremarkable Spleen: Spleen size is at the upper limits of normal. Adrenals: unremarkable Kidneys and ureters: unremarkable Stomach and bowel: The stomach is partially distended. Rotation is normal. Small bowel is mildly distended with fluid and air. There is no obstruction. Terminal ileum is unremarkable.Appendix is surgically absent. There is moderate stool throughout the colon. Appendix: See above. PELVIS: Bladder: Bladder is partially distended. Uterus is retroflexed. There is mild prominence of the more patient's age. Reproductive: See above. ABDOMEN and PELVIS: Intraperitoneal space: There is trace fluid in the pelvis. There is no free air. Bones/joints: There is a left pubic fracture. There is a nondisplaced left pubic fracture. Bony structures are osteopenic. There are degenerative changes. There is compression deformity of T11. There is marked compression deformity T12. There is mild compression deformity of L4. There may be a fracture at the S1 segmental level. Soft tissues: There is body wall edema. Vasculature: There are vascular calcifications. There are calcifications in the aorta. There are multiple collaterals/varices in the upper abdomen and left retroperitoneum. There are multiple pelvic varices greatest in the left. Lymph nodes: unremarkable IMPRESSION: Cirrhosis with prominence of the spleen and extensive varices; dilated common duct status post cholecystectomy; possible constipation; mild prominence of the endometrium for patient's age; osteopenia with multiple compression fractures Additional findings as described above.
[2017-03-19] MEDS ORDERED: Iodixanol 320 MG/ML 100 ML BOTTLE IV ONE (22:31)
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
[2017-03-20] MEDS: Albuterol-Ipratrop 3 mg / 0.5 (3 ml) UD IH SCH ×4 (02:03→19:43)
[2017-03-20] MEDS: Vancomycin 1gm in NS 250ml 1 GM/250 ML BAG IVPB SCH ×2 (06:00→15:50)
[2017-03-20] MEDS ORDERED: Potassium Chloride 20 mEq ER Tab PO ONE (07:56)
[2017-03-20] MEDS: cefTRIAXone 1 gm 1 G/100 ML BAG IVPB SCH (10:26)
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
[2017-03-20 11:46] LABS: BILIRUBIN,TOTAL 3.6 mg/dL (0.2-1.3); TOTAL PROTEIN 5.2 g/dL (5.8-8.3)
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
[2017-03-20] MEDS: HYDROmorphone 0.5 mg/0.5 ml ISec IVP PRN (23:26)
[2017-03-21] MEDS: Vancomycin 1gm in NS 250ml 1 GM/250 ML BAG IVPB SCH ×2 (03:30→15:14)
[2017-03-21] MEDS: HYDROmorphone 0.5 mg/0.5 ml ISec IVP PRN ×3 (05:17→22:37)
[2017-03-21 05:42] LABS: ADD MANUAL DIFF? NO
[2017-03-21 05:45] LABS: BASO # 0.03 K/mm3 (0.0-2.0); BASO % 0.7 % (0.0-3.0); EOS # 0.4 (0.0-0.7); EOS % 7.9 % (1.5-5.0); GRAN # 2.31 (1.4-6.5); HEMATOCRIT 31.4 % (36.0-48.0); LYMPH # 1.3 (1.2-3.4); LYMPH % 29.4 % (22.0-35.0); MEAN CELL VOLUME 93.5 fl (80.0-105.0); MEAN CORPUSCULAR HEMOGLOBIN 31.3 pg (25.0-35.0); MEAN CORPUSCULAR HGB CONC 33.4 g/dl (31.0-37.0); MEAN PLATELET VOLUME 9.2 fl (7.0-11.0); MONO # 0.5 (0.1-0.6); PLATELET COUNT 72 10^3/uL (120.0-450.0); RETIC% 2.92 % (0.5-1.5); WHITE BLOOD COUNT 4.5 10^3/ul (4.5-11.0)
[2017-03-21 05:53] LABS: INR 1.23 (0.93-1.08)
[2017-03-21 05:55] LABS: ALKALINE PHOSPHATASE 48 U/L (38-133); ALT/SGPT 34 U/L (7-56); AST/SGOT 63 U/L (15-39); BILIRUBIN,TOTAL 3.1 mg/dL (0.2-1.3); BLOOD UREA NITROGEN 17 mg/dL (7-21); CALCIUM 8.5 mg/dL (8.4-10.5); CARBON DIOXIDE 27 mmol/L (21-33); CHLORIDE 106 mmol/L (95-110); GFR AFRICAN-AMERICAN > 60; GLUCOSE,RANDOM 85 mg/dL (70-110); MAGNESIUM 1.8 mg/dL (1.7-2.2); PHOSPHOROUS 2.2 mg/dL (2.5-4.5); POTASSIUM 3.5 mmol/L (3.6-5.0); SODIUM 140 mmol/L (132-148); TOTAL PROTEIN 5.1 g/dL (5.8-8.3)
[2017-03-21] MEDS: Albuterol-Ipratrop 3 mg / 0.5 (3 ml) UD IH SCH ×2 (07:34→14:38)
[2017-03-21] MEDS: cefTRIAXone 1 gm 1 G/100 ML BAG IVPB SCH (10:07)
--- NOTE | 2017-03-21 10:34 | CP.PCM.PN ---
<Mahogany Murodck - Last Filed: 03/21/17 10:33> Subjective - Date & Time of Evaluation Date of Evaluation: 03/21/17 Time of Evaluation: 08:05 - Subjective Subjective: S&E at bedside, chart reviewed. No acute overnight events reported. Patient refused Lactulose yesterday, she had a BM. No reports of overt GI bleed. Objective - Vital Signs/Intake and Output Vital Signs (last 24 hours): Temp Pulse Resp BP Pulse Ox 98.4 F 90 19 114/53 L 96 03/21/17 06:00 03/21/17 10:12 03/21/17 06:00 03/21/17 10:12 03/20/17 06:00 Intake and Output: 03/21/17 03/21/17 06:59 18:59 Intake Total 240 250 Output Total 500 Balance -260 250 - Medications Medications: Current Medications Albuterol/Ipratropium (Duoneb 3 Mg/0.5 Mg (3 Ml) Ud) 3 ml IH [id number] [facility] Last Admin: 03/21/17 07:34 Dose: Not Given Famotidine (Pepcid) 40 mg PO HS [facility] Last Admin: 03/20/17 21:46 Dose: 40 mg Furosemide (Lasix) 40 mg IVP Q12 [facility]DR[facility] Last Admin: 03/21/17 10:12 Dose: Not Given Hydromorphone HCl (Dilaudid) 0.5 mg IVP Q6H PRN PRN Reason: Pain, moderate (4-7) Last Admin: 03/21/17 10:21 Dose: 0.5 mg Ceftriaxone Sodium (Rocephin 1 Gram Ivpb) 1 g in 100 mls @ 100 mls/hr IVPB DAILY [facility] PRN Reason: Protocol Last Admin: 03/21/17 10:07 Dose: 100 mls/hr Vancomycin HCl (Vancomycin 1gm) 1 gm in 250 mls @ 167 mls/hr IVPB Q12H [facility]DR[facility] PRN Reason: Protocol Last Admin: 03/21/17 03:30 Dose: 167 mls/hr Metoprolol Tartrate (Lopressor) 12.5 mg PO DAILY [facility] Last Admin: 03/21/17 10:12 Dose: Not Given Spironolactone (Aldactone) 25 mg PO BID [facility] Last Admin: 03/21/17 10:06 Dose: 25 mg - Labs Labs: 03/21/17 05:15 03/21/17 05:15 PT 13.3 Seconds (9.9-11.8) H 03/21/17 05:15 INR 1.23 (0.93-1.08) H 03/21/17 05:15 APTT 28.4 Seconds (23.7-30.8) 03/19/17 02:55 - Constitutional Appears: No Acute Distress - Head Exam Head Exam: NORMOCEPHALIC - Eye Exam Eye Exam: Normal appearance. absent: Scleral icterus - ENT Exam ENT Exam: Mucous Membranes Moist - Neck Exam Neck Exam: Normal Inspection - Respiratory Exam Respiratory Exam: NORMAL BREATHING PATTERN. absent: Respiratory Distress - Cardiovascular Exam Cardiovascular Exam: +S1, +S2 - GI/Abdominal Exam GI & Abdominal Exam: Soft, Normal Bowel Sounds. absent: Guarding, Tenderness, Rebound - Extremities Exam Extremities Exam: Normal Capillary Refill, Pedal Edema (B/L erythema). absent: Calf Tenderness - Neurological Exam Neurological Exam: Alert, Awake, Oriented x3 - Skin Skin Exam: Dry, Warm Assessment and Plan - Assessment and Plan (Free Text) Assessment: Assessment: Bilateral lower extremity edema with erythema and edema may be cellulitis, lower extremity Dopplers were negative for DVT Liver cirrhosis, MELD score of 14 with 6.0% estimated 3 month mortality rate, this is based on 03/19/17 labs Hyperbilirubinemia Prominence of spleen seen on CAT scan with extensive varices ConstipationRIGHT Elevated BNP History of colonic AVMs CAD with stent COPD Plan: Consider nonselective beta kirby Continue current diet as tolerated On IV antibiotics: Ceftriaxone and vancomycin Continue Pepcid On Aldactone and Lasix Monitor electrolytes Seen and discussed w/ Dr. Freitas. <Stewart Freitas V - Last Filed: 03/21/17 22:32> Objective - Vital Signs/Intake and Output Vital Signs (last 24 hours): Temp Pulse Resp BP Pulse Ox 98.6 F 65 20 150/90 96 03/21/17 17:54 03/21/17 17:54 03/21/17 17:54 03/21/17 22:24 03/20/17 06:00 Intake and Output: 03/21/17 03/22/17 18:59 06:59 Intake Total 250 Balance 250 - Medications Medications: Current Medications Betamethasone/Clotrimazole (Lotrisone) 0 gm TOP BID [facility] Last Admin: 03/21/17 18:28 Dose: 1 appful Famotidine (Pepcid) 40 mg PO HS [facility] Last Admin: 03/20/17 21:46 Dose: 40 mg Furosemide (Lasix) 40 mg IVP Q12 [facility] Last Admin: 03/21/17 22:24 Dose: 40 mg Hydromorphone HCl (Dilaudid) 0.5 mg IVP Q6H PRN PRN Reason: Pain, moderate (4-7) Last Admin: 03/21/17 10:21 Dose: 0.5 mg Ceftriaxone Sodium (Rocephin 1 Gram Ivpb) 1 g in 100 mls @ 100 mls/hr IVPB DAILY [facility] PRN Reason: Protocol Last Admin: 03/21/17 10:07 Dose: 100 mls/hr Vancomycin HCl (Vancomycin 1gm) 1 gm in 250 mls @ 167 mls/hr IVPB Q12H [facility] PRN Reason: Protocol Last Admin: 03/21/17 15:14 Dose: 167 mls/hr Levalbuterol HCl (Xopenex) 0.63 mg IH [id number] [facility] Last Admin: 03/21/17 19:55 Dose: 0.63 mg Metoprolol Tartrate (Lopressor) 12.5 mg PO DAILY [facility] Last Admin: 03/21/17 10:12 Dose: Not Given Potassium Phos/Sodium Phos (Neutra-Phos) 1 pkt PO TID [facility] Stop: 03/22/17 23:00 Last Admin: 03/21/17 18:27 Dose: 1 pkt Spironolactone (Aldactone) 25 mg PO BID [facility] Last Admin: 03/21/17 18:27 Dose: 25 mg - Labs Labs: 03/21/17 05:15 03/21/17 05:15 PT 13.3 Seconds (9.9-11.8) H 03/21/17 05:15 INR 1.23 (0.93-1.08) H 03/21/17 05:15 APTT 28.4 Seconds (23.7-30.8) 03/19/17 02:55 Attending/Attestation - Attestation I have personally seen and examined this patient.: Yes I have fully participated in the care of the patient.: Yes I have reviewed all pertinent clinical information, including history, physical exam and plan: Yes Notes (Text): this patient was seen and evaluated earlier. Her bowel movements. Tolerating diet. Cirrhosis of the liver with extensive varices intra-abdominally. Cellulitis of the leg and continue the antibiotics as per ID. Cirrhosis of the liver. The patient's total bilirubin elevated to 3.1 but mainlt indirect bilirubin Follow-up hepatitis serology and follow-up LFT we will also request a reticulocyte count ,haptoglobin and LDH to rule out any hemolytic process
[2017-03-21] MEDS ORDERED: Potassium Chloride 20 mEq ER Tab PO ONE ×2 (11:00→19:30)
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
--- NOTE | 2017-03-21 12:10 | PN ---
DATE: 03/21/2017 REASON FOR CONSULTATION: Cardiac evaluation of leg edema and CHF. SUBJECTIVE: The patient denies any chest pain and yesterday, had tenderness on the chest and chest pain, but still complained of swelling of the leg and did not sleep last night. PHYSICAL EXAMINATION GENERAL: Not in apparent distress. VITAL SIGNS: Temperature afebrile, heart rate 90, blood pressure 114/53. HEENT: PERRLA. Extraocular muscles intact. NECK: Supple. No carotid bruit or thyromegaly. CHEST: Clear to auscultation. HEART: S1 and S2 regular. ABDOMEN: Soft. EXTREMITIES: Clubbing and cyanosis negative. LABORATORY DATA: Blood workup: WBC 4.5, hemoglobin 10.5, hematocrit 31.4, platelet count 72. Chemistry shows sodium 140, potassium 3.5, chloride 106, carbon dioxide 27, anion gap of 11, BUN 17, creatinine 0.7. IMPRESSION: A 76-year-old female with a past medical history significant for congestive heart failure, cirrhosis of liver, chronic obstructive pulmonary disease, asthma, coronary artery disease, admitted with leg swelling and shortness of breath and chest pain. She has very tenderness on the chest. History of percutaneous transluminal coronary angioplasty in the past. History of last echo on 10/12/2015, shows severe aortic stenosis, diastolic dysfunction, [id number] aortic regurgitation, severe aortic stenosis, valve area 0.6 cm2. Her family and the patient herself refused transcatheter aortic valve replacement because of the high risk. Last catheterization in 04/2009. At that time, percutaneous transluminal coronary angioplasty was done. History of cirrhosis. History of as mentioned aortic insufficiency, peak gradient 76 mmHg, ejection fraction of 65% to 70%, diastolic dysfunction. RECOMMENDATION: Continue diuresis. The patient is already on Lasix. Continue supplement potassium as needed. Continue spironolactone. Continue low dose of beta kirby as tolerated because last time the patient became bradycardic on high dose of beta kirby, so continue 12.5 mg b.i.d. Follow up the lab and monitor electrolytes as needed. Due to potassium of 3.5, we will give an extra dose of potassium and supplement phosphorus. We will also give Neutra-Phos. Initial Consilu Dictaed yesterday is not available as of yet Pablo Guillermo MD ARACELI
--- NOTE | 2017-03-21 12:11 | CON ---
DATE: 03/20/2017 CONSULT SERVICE CARDIOLOGY PHYSICIAN: Dr. Pablo Guillermo REASON FOR CONSULTATION: Congestive heart failure, cellulitis of the lower extremity and chest pain. BRIEF CLINICAL HISTORY: This is a 76-year-old female with the past medical history significant for CHF, hypertension, COPD, lower extremity edema, chronic leg edema, cellulitis, diabetes, cirrhosis, thrombocytopenia, history of coronary artery disease, status post stent, and aortic stenosis, came in with complaint of gradually swelling of the leg, shortness of breath and chest pain which is very tender in the chest and abdomen, mild left upper quadrant and upper chest tenderness. Denies any nausea, vomiting or diarrhea. PAST MEDICAL HISTORY: Significant for coronary artery disease, status post PTCA in 2008, hypertension, hyperlipidemia, chronic venous stasis, chronic leg edema, cellulitis, COPD, cirrhosis, thrombocytopenia. PREVIOUS CARDIAC WORKUP: As follows: The patient had a cardiac catheterization and angioplasty in 2008. History of repeat echo on last admission, ejection fraction 65% to 70%; aortic stenosis, valve area 0.6 consistent with severe aortic stenosis, but looks like [id number], the valve area 0.6 cm2 but by appearance looks [id number] on 2D, diastolic dysfunction. On the last admission, discussion done for the TAVR. The patient offered for medical treatment. Discussion done with the family, the sister. SOCIAL HISTORY: Denies smoking. Denies any history of alcohol abuse. CURRENT MEDICATIONS: The patient is taking at home, sulfamethoxazole, spironolactone, metoprolol 12.5 mg, Lasix 40 mg daily, 25 aldactone daily. REVIEW OF SYSTEMS: As per HPI. A 14-point review of the system was negative except for HPI. PHYSICAL EXAMINATION: GENERAL: Height of the patient 5 feet 4 inches, weight of the patient 185 pounds. VITAL SIGNS: Temperature afebrile, heart rate 87, blood pressure 112/49. HEENT: PERRLA. Extraocular muscles are intact. NECK: Supple. No carotid bruit or thyromegaly. CHEST: Clear to auscultation. Tenderness noted in the left side of the chest as very mild in the upper quadrant. HEART: S1 and S2 regular. ABDOMEN: Soft. EXTREMITIES: Clubbing and cyanosis negative. LABORATORY DATA: EKG shows normal sinus, rate of 94, right bundle branch block, left axis deviation, left atrial abnormality. Blood workup as follows: WBC 13.3, hemoglobin 10.8, and hematocrit 29.4, platelet count 78. Chemistry shows sodium 130, potassium 3.4, chloride 103, carbon dioxide 26, anion gap of 12, BUN 23, creatinine of 0.7. Total bilirubin 3.6, direct bilirubin 1.0, AST 62, ALT 26, alkaline phosphatase 48, total protein 5.8, albumin 2.6, albumin-globulin ration 1. IMPRESSION: A 76-year-old female with the past medical history significant for coronary artery disease, status post percutaneous transluminal coronary angioplasty in 2008, history of cirrhosis, history of thrombocytopenia, history of aortic stenosis, preserved left ventricular function, admitted with decompensated congestive heart failure [id number] secondary diastolic dysfunction as well as protein-calorie malnutrition secondary to cirrhosis and hypoproteinemia, thrombocytopenia, anemia, [id number] aortic stenosis. RECOMMENDATIONS: Continue gentle diuretics. Supplement potassium. Keep negative fluid balance. On last admission, discussion done with the family member for TAVR, the patient is very, very reluctant as well as in fact the patient is at high risk because of underlying comorbidities including thrombocytopenia as well as protein-calorie malnutrition. We will try to treat medically. Resume the medication low-dose beta-kirby, gentle diuretics Aldactone and potassium supplement. We will follow with you. We will repeat magnesium. We will repeat phosphorus. We will repeat CMP to see the potassium. We will supplement, given extra dose of potassium today. Overall, the patient's condition is critical. Long-term prognosis is extremely guarded. Thank you Dr. Rg for providing me the opportunity in taking care of Maria D Sullivan. Pablo Guillermo MD cc: Kristin Rg MD MTDD
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
[2017-03-21] MEDS: Potassium & Sodium Phosphate PO SCH ×2 (15:14→18:27)
--- NOTE | 2017-03-21 17:24 | RAD ---
PROCEDURE: Left Knee Radiographs. HISTORY: Pain. COMPARISON: None. FINDINGS: BONES: There is diffuse bone demineralization. There is no acute fracture or bone destruction. Status post open reduction and internal fixation of an old fracture in the right tibia. JOINTS: There is mild tricompartmental degenerative osteoarthrosis. JOINT EFFUSION: There is a small suprapatellar joint effusion. OTHER FINDINGS: None. IMPRESSION: No acute displaced fracture or bone destruction.
[2017-03-21] MEDS: Clotrimazole/Betamethasone Cream(15 gm) TOP SCH (18:28)
[2017-03-21] MEDS: Levalbuterol 0.63 MG/3 ML Inhal Soln UD IH SCH (19:55)
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
--- NOTE | 2017-03-21 22:56 | CON ---
DATE: 03/21/2017 REASON FOR CONSULTATION: Lumbar pain, left pelvic pain and left knee pain. HISTORY OF PRESENT ILLNESS: This is a 76-year-old female with a past medical history of a fall several days ago, complaining of lower back and pelvic pain. The patient states that she has been having pain for the last 8 days. By history, she slipped out of her rocker, falling on the left side. She complains now of left-sided pain. PAST MEDICAL HISTORY: Significant for prior left total knee replacement approximately 9 years ago. She denies any numbness or tingling going down the legs. Denies any change in her bowel or bladder habits. She does have a history of having left lower extremity cellulitis and edema. PHYSICAL EXAMINATION: GENERAL: She is awake, alert and oriented and in no apparent distress. EXTREMITIES: She does have some bilateral lower extremity pitting edema. Her thigh and calf are otherwise soft and nontender. She has a healed midline left knee incision. No gross effusion is appreciated. She is able to actively flex it to about 90 degrees and grossly stable with varus and valgus stress. She is able to do a straight leg raise with complaints of left groin pain. She has no pain with passive internal and external rotation of the hip. She has really no right-sided tenderness to palpation. She is able to perform a straight leg raise on the right side without significant pain. Evaluation of the lumbar spine shows that she has some mid to lower lumbar tenderness to palpation. Range of motion exam is limited secondary to her pain. NEUROLOGIC: She is grossly neurologically intact. Moving both her lower extremities. CAT scan of the abdomen and pelvis is consistent with what looks like a nondisplaced left inferior ramus fracture and also looks like she has some compression deformities most pronounced at T12, but also seen at L4-T11. Ages of these compression deformity fractures are indeterminate. No significant canal compromise or retropulsion of fragments seen is appreciated. There are currently no knee films available. CAT scan of the pelvis also showed no obvious intracapsular fractures. Femoral neck appears to be intact. No large hip perfusion is seen. IMPRESSION: Multiple lumbar compression fractures, left inferior ramus fracture. PLAN: At this point, she is scheduled to have an MRI of the lumbar spine. I also ordered an x-rays of the left knee to better evaluate and rule out any periprosthetic fracture. We will follow up once the x-rays and MRI are complete. Bhanu Castellanos MD
[2017-03-22] MEDS: Levalbuterol 0.63 MG/3 ML Inhal Soln UD IH SCH ×4 (02:30→21:50)
[2017-03-22] MEDS: Vancomycin 1gm in NS 250ml 1 GM/250 ML BAG IVPB SCH ×2 (03:11→17:59)
[2017-03-22] MEDS: HYDROmorphone 0.5 mg/0.5 ml ISec IVP PRN (07:17)
[2017-03-22 07:26] LABS: ALKALINE PHOSPHATASE 43 U/L (38-133); ALT/SGPT 26 U/L (7-56); AST/SGOT 43 U/L (15-39); BILIRUBIN,TOTAL 2.4 mg/dL (0.2-1.3); BLOOD UREA NITROGEN 19 mg/dL (7-21); CALCIUM 8.4 mg/dL (8.4-10.5); CARBON DIOXIDE 27 mmol/L (21-33); CHLORIDE 104 mmol/L (98-107); GFR AFRICAN-AMERICAN > 60; GLUCOSE,RANDOM 95 mg/dL (70-110); POTASSIUM 3.9 mmol/L (3.6-5.0); SODIUM 137 mmol/L (132-148); TOTAL PROTEIN 4.6 g/dL (5.8-8.3)
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
[2017-03-22] MEDS: Potassium Chloride 20 mEq ER Tab PO SCH ×2 (09:53→17:57)
[2017-03-22] MEDS: Calcium-Vit D 250 mg-125 Units Tab UD PO SCH (09:54)
[2017-03-22] MEDS: Clotrimazole/Betamethasone Cream(15 gm) TOP SCH ×2 (09:55→17:59)
[2017-03-22] MEDS: cefTRIAXone 1 gm 1 G/100 ML BAG IVPB SCH (09:55)
[2017-03-22] MEDS: Potassium & Sodium Phosphate PO SCH ×3 (09:55→17:59)
--- NOTE | 2017-03-22 11:01 | MRI ---
PROCEDURE: MR LUMBAR SPINE WITHOUT CONTRAST HISTORY: Incl T11 and T12. Eval T12, L4 comp fx COMPARISON: None available. TECHNIQUE: Multiecho multiplanar sequences were performed through the lumbar spine without the use of intravenous contrast. FINDINGS: Normal lumbar lordosis. Chronic compression fracture of T12 Marrow signal unremarkable. Conus medullaris unremarkable at the level of T12 Paraspinal soft tissues are unremarkable. T12-L1: No disc herniation, spinal canal stenosis or neural foraminal narrowing. L1-2: No disc herniation, spinal canal stenosis or neural foraminal narrowing. L2-3: No disc herniation, spinal canal stenosis or neural foraminal narrowing. L3-4: Moderate disc bulge. Moderate facet arthropathy. There is a mild degree of spinal stenosis L4-5: There is a moderate disc bulge and a small central protrusion. This produces a moderate degree of spinal stenosis L5-S1: No disc herniation, spinal canal stenosis or neural foraminal narrowing. OTHER FINDINGS: None. IMPRESSION: Chronic compression fracture T12. Moderate disc bulge and central protrusion at L4-5 with moderate stenosis. Mild stenosis at L3-4
--- NOTE | 2017-03-22 11:47 | CON ---
DATE: 03/21/2017 REASON FOR CONSULT: Sleep apnea syndrome, chronic lung disease, reoccurring fall, leg swelling. HISTORY OF PRESENT ILLNESS: This is a 76 years old female, multiple medical issue including cardiac diastolic dysfunction, hypertension, chronic lung disease, reoccurring lower extremity edema, reoccurring cellulitis, diabetes, idiopathic cirrhotic liver, thrombocytopenia, anemia, and history of GI bleed. He was seen at Dr. Rg's office, was advised to come to emergency room with bilateral leg swelling, left hip discomfort. No nausea, no vomiting, no diarrhea. PAST MEDICAL HISTORY: Significant for coronary artery disease, congestive heart failure, has a diastolic dysfunction, also has severe aortic stenosis, hypertension, chronic lung disease, diabetes, anemia, history of transfusion in the past, hiatal hernia, depression, coronary artery disease, history of esophagitis, duodenitis, gastritis, and recurrent cellulitis of lower extremities. ALLERGIES: NONE KNOWN. SOCIAL HISTORY: Nonsmoker, nondrinker. FAMILY HISTORY: No significant cardiopulmonary disease reported. MEDICATIONS: Presently, she is on Aldactone 25 mg twice a day, Dilaudid, Zofran 5 mg IV q. 6 hours, p.r.n. Lasix 40 mg twice a day, metoprolol tartarate 12.5 mg daily, Lotrisone to affected area twice a day, *------* one pack 3 times a day, Pepcid 40 mg daily, Rocephin 1 g IV daily, vancomycin 1 g IV q.12h., Xopenex inhale q.6h. REVIEW OF SYSTEMS: No headache, no rhinitis. She has cough and shortness of breath. No chest pain, has left lower quadrant back pain, and leg swelling. No dysuria. PHYSICAL EXAMINATION: GENERAL: Lying in the bed, [id number] distress secondary to pain. VITAL SIGNS: Temp is 98,heart rate 65, respiratory rate is 20, blood pressure 150/90, and pulse ox 96% on nasal cannula. HEENT: Moist mucous membrane. Crowded airway. Mallampati score is 4. NECK: Supple. No JVD. LUNGS: Diffused crackles, scattered rhonchi. HEART: S1 and S2. Positive murmur. ABDOMEN: Soft, nontender. No organomegaly. Suprapubic left hip area tenderness. EXTREMITIES: She does have edema. Legs are mildly erythematous. NEUROLOGIC: Awake and alert. Follow simple commands. LABORATORY DATA: Shows hemoglobin 10.5, hematocrit 35.4, WBC 4.5, platelet count is 72. INR 1.23. Blood gas shows VBG, pH 7.38, pCO2 of 48, O2 of 52. Sodium 148, potassium 3.5, chloride 106, bicarbonate 27, BUN 17, creatinine 0.7, glucose 85, calcium is 8.5, phosphorous 2.2, magnesium 1.8, total bilirubin is 3.1, AST 63, ALT 34, alkaline phosphatase is 48, albumin is 2.5. Alpha-fetoprotein is 1.8. Microbiology, blood culture, urine culture; there is no growth. Has a CAT scan of the abdomen and pelvis done, which shows cirrhotic liver, has prominence *------* dilated common duct post cholecystectomy, possible constipation, and mild prominence of the endometrium for patient's age, osteopenia with multiple compression fractures, also have a left inferior ramus fracture. IMPRESSION AND PLAN: Cardiomyopathy with severe aortic stenosis, coronary artery disease, heart failure, chronic obstructive lung disease, sleep apnea syndrome, pulmonary hypertension, cryptogenic cirrhosis with ascites, portal hypertension, reoccurring lower extremity edema and cellulitis, pancytopenia, esophagitis, gastritis, multiple spine and compression fractures, also, have a pubic ramus fracture. Case discussed with Dr. Rg. Increase IV diuretics. Continue bronchodilator. May add calcium and vitamin D by mouth, inhaled bronchodilators. Sleep apnea precaution. Continue antibiotics. Followup electrolytes in the morning. Thank you and we will follow with you. Pablo Cantor MD
--- NOTE | 2017-03-22 13:39 | PN ---
DATE: 03/22/2017 REASON FOR CONSULTATION: Followup cardiac evaluation, leg edema and CHF. SUBJECTIVE: The patient denies any chest pain and denies any shortness of breath, but feels lot of back pain. OBJECTIVE: Examination as follows: GENERAL: Mild distress because of the back pain. VITAL SIGNS: temperature afebrile, heart rate of 84, and blood pressure of 134/62. HEENT PERRLA. Extraocular muscles are intact. NECK: Supple. No carotid bruits or thyromegaly. CHEST: Clear to auscultation. HEART: S1 and S2 regular. ABDOMEN: Soft. EXTREMITIES: Clubbing and cyanosis negative, 2+ pedal edema. LABORATORY DATA: Blood workup as follows: WBC of 4.5 as of 03/21/2017, hemoglobin of 10.5, hematocrit of 31.4, and platelet count of 172. Chemistry shows sodium of 137, potassium of 3.9, chloride of 104, carbon dioxide of 27, anion gap of 10, BUN of 19, and creatinine of 0.7. Total protein of 4.6, albumin of 2.3 and albumin-globulin ratio of 1. IMPRESSION AND PLAN: Protein-calorie malnutrition moderate which was not present on admission, anemia which was present on admission and back pain secondary to multiple lumbar compression fracture and left inferior ramus fracture, history of coronary artery disease, status post percutaneous transluminal coronary angioplasty in 2008, severe aortic stenosis, valve area of 0.6 cm, history of cirrhosis, thrombocytopenia, preserved left ventricular function, peak gradient across aortic valve 76 mmHg, ejection fraction of 65% to 70%, diastolic dysfunction. The patient refused transcatheter aortic valve replacement evaluation in the past. Continue diuretics. Continue follow up with the orthopedic medical treatment from a cardiology point of view as stable on low dose of beta kirby and continue spironolactone. We will follow with you. Monitor electrolytes periodically. Discontinue telemetry. Repeat the lab in the morning. No further cardiac workup is planned at this time. Thank you Dr. Rg for providing us an opportunity in taking care of patient. Pablo Guillermo MD cc: Kristin Rg MD [facility] # [id number]
--- NOTE | 2017-03-22 15:09 | PN ---
PULMONARY PROGRESS NOTE DATE: 03/22/2017 REFERRING PHYSICIAN: Dr. Rg. SUBJECTIVE: The patient is lying with head bed at 45 degrees, having lunch. Still having back and left hip discomfort, leg swelling little better. No dysuria, no polyuria, no chest pain. OBJECTIVE: In no acute distress. PHYSICAL EXAMINATION: VITAL SIGNS: Temperature is 98, heart rate 86, respiratory rate is 20, blood pressure is 109/45, and pulse ox is 96% 2 L nasal cannula. HEENT: Moist mucous membrane. Crowded airway. Mallampati score is 4. NECK: Supple. No JVD. LUNGS: Has a prolonged expiratory phase with few crackles. HEART: S1 and S2. ABDOMEN: Soft, nontender. No organomegaly. EXTREMITIES: Does have edema. NEUROLOGIC: Awake and alert. Follows simple commands. MEDICATIONS: She is on Aldactone 25 mg twice a day, Colace 100 mg twice a day, Dilaudid 0.5 mg q. 6 hours p.r.n., lactulose 20 g p.o. once a dose is given two day, potassium 40 mEq twice a day, Lasix 80 mg IV q. 12 hours, metoprolol tartarate 12.5 mg daily, Lotrisone to affected area, Neutra-Phos one pack 3 times a day, Pepcid 40 mg daily, Reglan 10 mg on q.i.d. for two days, Rocephin 1 g daily, vancomycin 1 g IV q. 12 hours., and Xopenex inhaler q. 8 hours. LABORATORY DATA: Reviewed and noted sodium 137, potassium 3.9, chloride 104, bicarbonate 27, BUN 19, creatinine 0.7, glucose 95, calcium is 8.4, total bilirubin is 2.4, AST is 43, ALT 26, alkaline phosphatase is 43, and albumin is 2.3. Microbiology: Blood culture and urine culture, there is no growth. Has a lumbar spine MRI done, which showed mild stenosis and vertebral old compression fractures. Knee x-rays shows no fracture. IMPRESSION AND PLAN: Cardiomyopathy with severe aortic stenosis, coronary artery disease, heart failure, chronic obstructive lung disease, sleep apnea syndrome, pulmonary hypertension, cryptogenic cirrhosis, ascites, portal hypertension, reoccurring lower extremity edema and cellulitis, pancytopenia, esophagitis, gastritis, multiple spinal compression fractures, also has pubic ramus fracture. The patient being followed by orthopedic. Pulmonary point of view, continue diuretics. Continue bronchodilator. Keep head at 45 degrees. Sleep apnea precaution. Replace potassium. Followup electrolytes in the morning. Thank you and we will follow with you. Pablo Cantor MD
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
[2017-03-23] MEDS: Levalbuterol 0.63 MG/3 ML Inhal Soln UD IH SCH ×4 (02:55→20:32)
[2017-03-23] MEDS: Vancomycin 1gm in NS 250ml 1 GM/250 ML BAG IVPB SCH ×2 (03:21→15:25)
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
[2017-03-23 06:06] LABS: ADD MANUAL DIFF? NO
[2017-03-23 06:15] LABS: BASO # 0.03 K/mm3 (0.0-2.0); BASO % 0.8 % (0.0-3.0); EOS # 0.3 (0.0-0.7); EOS % 8.6 % (1.5-5.0); GRAN # 2.07 (1.4-6.5); GRAN % 55.4 % (50.0-68.0); HEMATOCRIT 30.9 % (36.0-48.0); LYMPH # 0.9 (1.2-3.4); LYMPH % 23.1 % (22.0-35.0); MEAN CELL VOLUME 94.2 fl (80.0-105.0); MEAN CORPUSCULAR HEMOGLOBIN 31.1 pg (25.0-35.0); MEAN PLATELET VOLUME 8.9 fl (7.0-11.0); MONO # 0.5 (0.1-0.6); MONO % 12.1 % (1.0-6.0); PLATELET COUNT 74 10^3/uL (120.0-450.0); RED CELL DISTRIBUTION WIDTH 15.6 % (11.5-14.5); WHITE BLOOD COUNT 3.7 10^3/ul (4.5-11.0)
[2017-03-23 06:47] LABS: ALKALINE PHOSPHATASE 47 U/L (38-133); ALT/SGPT 30 U/L (7-56); AST/SGOT 38 U/L (15-39); BILIRUBIN,TOTAL 2.1 mg/dL (0.2-1.3); BLOOD UREA NITROGEN 18 mg/dL (7-21); CALCIUM 8.4 mg/dL (8.4-10.5); CARBON DIOXIDE 27 mmol/L (21-33); CHLORIDE 105 mmol/L (95-110); GFR AFRICAN-AMERICAN > 60; GLUCOSE,RANDOM 87 mg/dL (70-110); MAGNESIUM 1.7 mg/dL (1.7-2.2); PHOSPHOROUS 3.3 mg/dL (2.5-4.5); POTASSIUM 4.3 mmol/L (3.6-5.0); SODIUM 138 mmol/L (132-148); TOTAL PROTEIN 4.8 g/dL (5.8-8.3)
[2017-03-23] MEDS: Clotrimazole/Betamethasone Cream(15 gm) TOP SCH ×2 (11:07→17:06)
--- NOTE | 2017-03-23 11:17 | CP.PCM.PN ---
<Mahogany Murdock - Last Filed: 03/23/17 11:17> Subjective - Date & Time of Evaluation Date of Evaluation: 03/23/17 Time of Evaluation: 09:15 - Subjective Subjective: Seen and examined at the bedside this morning, chart was reviewed. Patient had a large soft BM yesterday, no reports of bleeding. Denies nausea, vomiting, or abdominal pain, complains of back pain. Went for MRI yesterday report reviewed. MRI: T12 shows chronic compression, also moderate disc bulge and central protrusion at L4-5 with moderate stenosis, L3-4 mild stenosis Objective - Vital Signs/Intake and Output Vital Signs (last 24 hours): Temp Pulse Resp BP Pulse Ox 98.4 F 82 20 100/41 L 96 03/23/17 08:00 03/23/17 08:00 03/23/17 08:00 03/23/17 08:00 03/23/17 08:00 Intake and Output: 03/23/17 03/23/17 06:59 18:59 Intake Total 740 Balance 740 - Medications Medications: Current Medications Betamethasone/Clotrimazole (Lotrisone) 0 gm TOP BID [facility] Last Admin: 03/22/17 17:59 Dose: Not Given Calcium/Vitamin D (Oscal-D 250 Mg-125 Units Tab) 1 tab PO DAILY [facility] Last Admin: 03/22/17 09:54 Dose: 1 tab Docusate Sodium (Colace) 100 mg PO BID [facility] Last Admin: 03/22/17 17:58 Dose: 100 mg Famotidine (Pepcid) 40 mg PO HS [facility] Last Admin: 03/22/17 21:57 Dose: 40 mg Furosemide (Lasix) 80 mg IVP Q12 [facility] Last Admin: 03/22/17 21:58 Dose: 80 mg Ceftriaxone Sodium (Rocephin 1 Gram Ivpb) 1 g in 100 mls @ 100 mls/hr IVPB DAILY [facility] PRN Reason: Protocol Last Admin: 03/22/17 09:55 Dose: 100 mls/hr Vancomycin HCl (Vancomycin 1gm) 1 gm in 250 mls @ 167 mls/hr IVPB Q12H [facility] PRN Reason: Protocol Last Admin: 03/23/17 03:21 Dose: 167 mls/hr Lactulose (Enulose) 10 gm PO DAILY [facility] Levalbuterol HCl (Xopenex) 0.63 mg IH [id number] [facility] Last Admin: 03/23/17 08:21 Dose: 0.63 mg Metoclopramide HCl (Reglan) 10 mg PO 0600,1130,1630,2200 [facility] Stop: 03/25/17 23:59 Last Admin: 03/23/17 06:39 Dose: 10 mg Metoprolol Tartrate (Lopressor) 12.5 mg PO DAILY [facility] Last Admin: 03/22/17 09:54 Dose: 12.5 mg Potassium Chloride (K-Dur 20 Meq Er Tab) 40 meq PO BID [facility] Last Admin: 03/22/17 17:57 Dose: 40 meq Spironolactone (Aldactone) 25 mg PO BID [facility] Last Admin: 03/22/17 17:57 Dose: 25 mg - Labs Labs: 03/23/17 05:20 03/23/17 05:20 PT 13.3 Seconds (9.9-11.8) H 03/21/17 05:15 INR 1.23 (0.93-1.08) H 03/21/17 05:15 APTT 28.4 Seconds (23.7-30.8) 03/19/17 02:55 - Constitutional Appears: No Acute Distress - Head Exam Head Exam: NORMOCEPHALIC - Eye Exam Eye Exam: Normal appearance. absent: Scleral icterus - ENT Exam ENT Exam: Mucous Membranes Moist - Neck Exam Neck Exam: Normal Inspection - Respiratory Exam Respiratory Exam: NORMAL BREATHING PATTERN. absent: Respiratory Distress - Cardiovascular Exam Cardiovascular Exam: +S1, +S2 - GI/Abdominal Exam GI & Abdominal Exam: Soft, Normal Bowel Sounds. absent: Guarding, Tenderness, Rebound - Extremities Exam Extremities Exam: Normal Capillary Refill, Pedal Edema. absent: Calf Tenderness Additional comments: bilateral lower extremity with erythema and edema - Neurological Exam Neurological Exam: Alert, Awake, Oriented x3 - Skin Skin Exam: Dry, Warm Assessment and Plan - Assessment and Plan (Free Text) Assessment: Assessment: Bilateral lower extremity edema with erythema and edema may be cellulitis, lower extremity Dopplers were negative for DVT Liver cirrhosis Compression FX L4 Hyperbilirubinemia, improving Prominence of spleen seen on CAT scan with extensive varices Constipation Elevated BNP History of colonic AVMs CAD with stent COPD Plan: continue daily dose of lactulose 10 g, hold for greater than 2 stools/dayor semi -loose stools on stool softners Continue current diet as tolerated On IV antibiotics: Ceftriaxone and vancomycin Continue Pepcid On Aldactone and Lasix Monitor electrolytes Ortho follow-up Seen and discussed w/ Dr. Freitas. <Stewart Freitas V - Last Filed: 03/23/17 23:27> Objective - Vital Signs/Intake and Output Vital Signs (last 24 hours): Temp Pulse Resp BP Pulse Ox 97.8 F 81 20 116/62 96 03/23/17 16:00 03/23/17 16:00 03/23/17 16:00 03/23/17 21:11 03/23/17 16:00 Intake and Output: 03/23/17 03/24/17 18:59 06:59 Intake Total 600 Output Total 4 300 Balance -4 300 - Medications Medications: Current Medications Acetaminophen (Tylenol 325mg Tab) 650 mg PO Q6H PRN PRN Reason: Pain, moderate (4-7) Betamethasone/Clotrimazole (Lotrisone) 0 gm TOP BID [facility] Last Admin: 03/23/17 17:06 Dose: 1 appful Calcium/Vitamin D (Oscal-D 250 Mg-125 Units Tab) 1 tab PO DAILY [facility] Last Admin: 03/23/17 11:20 Dose: 1 tab Docusate Sodium (Colace) 100 mg PO BID [facility] Last Admin: 03/23/17 17:15 Dose: 100 mg Famotidine (Pepcid) 40 mg PO HS [facility] Last Admin: 03/23/17 21:11 Dose: 40 mg Furosemide (Lasix) 80 mg IVP Q12 [facility] Last Admin: 03/23/17 21:11 Dose: 80 mg Hydromorphone HCl (Dilaudid) 1 mg IVP Q6H PRN PRN Reason: Pain, moderate (4-7) Last Admin: 03/23/17 13:20 Dose: 1 mg Ceftriaxone Sodium (Rocephin 1 Gram Ivpb) 1 g in 100 mls @ 100 mls/hr IVPB DAILY [facility] PRN Reason: Protocol Last Admin: 03/23/17 11:29 Dose: 100 mls/hr Vancomycin HCl (Vancomycin 1gm) 1 gm in 250 mls @ 167 mls/hr IVPB Q12H [facility] PRN Reason: Protocol Last Admin: 03/23/17 15:25 Dose: 167 mls/hr Lactulose (Enulose) 10 gm PO DAILY [facility] Last Admin: 03/23/17 11:17 Dose: 10 gm Levalbuterol HCl (Xopenex) 0.63 mg IH [id number] [facility] Last Admin: 03/23/17 20:32 Dose: 0.63 mg Metoclopramide HCl (Reglan) 10 mg PO 0600,1130,1630,2200 [facility] Stop: 03/25/17 23:59 Last Admin: 03/23/17 21:11 Dose: 10 mg Metoprolol Tartrate (Lopressor) 12.5 mg PO DAILY [facility] Last Admin: 03/23/17 11:20 Dose: 12.5 mg Potassium Chloride (K-Dur 20 Meq Er Tab) 40 meq PO BID [facility] Last Admin: 03/23/17 17:13 Dose: 40 meq Spironolactone (Aldactone) 25 mg PO BID [facility] Last Admin: 03/23/17 17:15 Dose: 25 mg - Labs Labs: 03/23/17 05:20 03/23/17 05:20 PT 13.3 Seconds (9.9-11.8) H 03/21/17 05:15 INR 1.23 (0.93-1.08) H 03/21/17 05:15 APTT 28.4 Seconds (23.7-30.8) 03/19/17 02:55 Attending/Attestation - Attestation I have personally seen and examined this patient.: Yes I have fully participated in the care of the patient.: Yes I have reviewed all pertinent clinical information, including history, physical exam and plan: Yes Notes (Text): p
[2017-03-23] MEDS: Potassium Chloride 20 mEq ER Tab PO SCH ×2 (11:18→17:13)
[2017-03-23] MEDS: Calcium-Vit D 250 mg-125 Units Tab UD PO SCH (11:20)
[2017-03-23] MEDS: cefTRIAXone 1 gm 1 G/100 ML BAG IVPB SCH (11:29)
[2017-03-23] MEDS: HYDROmorphone 1 mg/ml ISec IVP PRN (13:20)
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
--- NOTE | 2017-03-23 19:43 | PN ---
DATE: 03/23/2017 REASON FOR CONSULTATION: Followup cardiac evaluation, leg edema, CHF, and back pain. SUBJECTIVE: The patient complained of back pain, went for the MRI, anxious to know the result. OBJECTIVE: GENERAL: Lying flat. Not in apparent distress. Feeling better. VITAL SIGNS: Temperature afebrile, heart rate of 95, and blood pressure of 132/57. HEENT PERRLA. Extraocular muscles are intact. NECK: Supple. No carotid bruits or thyromegaly. CHEST: Clear to auscultation. HEART: S1 and S2 regular. ABDOMEN: Soft. EXTREMITIES: Clubbing and cyanosis negative, 1+ pedal edema noted. LABORATORY DATA: MRI of the lumbar spine was done that showed: 1. Chronic compression of T12. 2. Moderate disc bulging and central protrusion of L4-L5 with moderate stenosis. Mild stenosis at L3-L4. IMPRESSION AND PLAN: A 76-year-old female with past medical history significant for coronary artery status post percutaneous transluminal coronary angioplasty 04/2009, history of severe aortic stenosis, 0.6 cm2, history of cirrhosis, thrombocytopenia, preserved left ventricular function, admitted with back pain. MRI result as above, spinal stenosis and protrusion of the lumbar vertebra and compression fracture. CV status is stable. Continue gentle diuretics. Overall, the patient condition relatively stable. The patient refused transcatheter aortic valve replacement evaluation and also the patient is right now high risk for any invasive procedure because of underlying comorbidity as well as thrombocytopenia. We will try to treat conservatively. We will follow. The patient is not a candidate for any spinal surgery. It would be high risk. Thank you Dr. Rg for providing us an opportunity in taking care of patient. Continue aggressive medical treatment including diuretics, spironolactone, low-dose metoprolol as tolerated. Continue antibiotic. Moderate electrolyte supplement as needed. We will follow with you. Pablo Guillermo MD
[2017-03-24] MEDS: Levalbuterol 0.63 MG/3 ML Inhal Soln UD IH SCH ×4 (01:23→19:18)
[2017-03-24] MEDS: Vancomycin 1gm in NS 250ml 1 GM/250 ML BAG IVPB SCH (03:49)
--- NOTE | 2017-03-24 04:13 | PN ---
DATE: 03/23/2017 SUBJECTIVE: The patient is 76-year-old female. The patient was seen and examined on 03/23/2017, still complaining about back pain, left inguinal pain heading towards the left lower extremity. No nausea, vomiting, diarrhea. No hematuria or hematochezia. No headache or dizziness. No chest pain, no palpitation. PHYSICAL EXAMINATION: VITAL SIGNS: Temperature 97.8, pulse 81, blood pressure 150/62, respiratory rate 20. HEENT: Head normocephalic and atraumatic. Eyes, PERRLA. Extraocular muscles intact. Conjunctivae clear. Nose is patent. Mucus membrane moist. NECK: Supple. No carotid bruits, no JVD, no thyromegaly. CHEST: Bilaterally symmetrical. HEART: S1 and S2 positive. LUNGS: Clear to auscultation. ABDOMEN: Soft. Bowel sounds positive. No organomegaly. EXTREMITIES: No edema. No cyanosis. NEUROLOGIC: The patient is awake and alert. Moving all 4 extremities. No focal deficit. MEDICATIONS: Aldactone, Colace, Dilaudid, lactulose, Lasix, Lopressor, Lotrisone, calcium with vitamin D, Pepcid, and Reglan. LABORATORY DATA: White blood cell 3.7, hemoglobin 10.2, hematocrit 30.9, platelets , Sodium 138, potassium 4.3, BUN 18, creatinine 0.7, glucose 87, total bilirubin 2.1. ASSESSMENT AND PLAN: The patient is a 76-year-old lady with history of hypokaliemia replaced, abnormal liver function test, improving; leukocytosis, improving; anemia, getting better; thrombocytopenia in other words pancytopenia. Seen ID by Dr. Eugenio Richard; Dr. Guillermo, mail carrier and clerk and Dr. Castellanos, the patient's orthopedist. Still complaining of left leg pain, but little better. No fever overnight. Consider bilateral lower extremity skin and subcutaneous infection, no purulence, left is worse than the right. No evidence of deep vein thrombosis on ultrasound. Gastrointestinal and deep vein thrombosis prophylaxis. Repeat labs. History of depression. Education done. We will follow up. Kristin Rg MD [facility] # [id number] [facility]
--- NOTE | 2017-03-24 04:55 | PN ---
PULMONARY PROGRESS NOTE DATE: 03/23/2017 REFERRING PHYSICIAN: Kristin Rg MD SUBJECTIVE: The patient is out of bed to chair, feels better, and decreased cough and shortness of breath. No nausea, vomiting, or diarrhea. Still has back pain, hip pain, and leg swelling. OBJECTIVE: GENERAL: No acute distress. VITAL SIGNS: Temperature is 98, heart rate is 81, respiratory rate is 20, blood pressure is 126/62, and pulse ox is 96% on room air on 2 L nasal cannula. HEENT: Moist mucous membranes. Small oral cavity. Crowded airway. NECK: Supple. No JVD. LUNGS: Has a few scattered rhonchi. HEART: S1 and S2. ABDOMEN: Soft and nontender. No organomegaly. Has some ascites. EXTREMITIES: Does have edema, but decreased edema compared to yesterday. NEUROLOGICAL: Awake and alert, and follows simple commands. MEDICATIONS: She is on Aldactone 25 mg twice a day, Colace 100 mg twice a day, Dilaudid 1 mg q.6 hours p.r.n., lactulose 10 mg daily, potassium 40 mEq twice a day, Lasix 80 mg q.12 hours, Lopressor 12.5 mg daily, Lotrisone cream on affected areas, calcium plus vitamin D one tablet daily, Pepcid 40 mg daily, Reglan 10 mg q.i.d., Rocephin 1 g IV daily, Tylenol p.r.n., vancomycin 1 g IV q.12 hours, and Xopenex inhaler q.6 hours. LABORATORY DATA: Shows hemoglobin 10.2, hematocrit 30.9, WBC 3.7, and platelet is 74. Sodium 138, potassium 4.3, chloride 105, bicarbonate 27, BUN 18, creatinine 0.7, glucose 87, calcium 8.4, phosphorous 3.3, magnesium 1.7, total bili 2.1, AST 38, ALT 30, alk phos is 47, and albumin 2.4. Microbiology; blood culture and urine culture; there is no growth. IMPRESSION AND PLAN: Cardiomyopathy with severe aortic stenosis, coronary artery disease, heart failure, chronic obstructive lung disease, sleep apnea syndrome, pulmonary hypertension, cryptogenic cirrhosis, ascites, portal hypertension, reactive lower extremity edema, cellulitis, pancytopenia, esophagitis, gastritis, multiple spinal compression injury, and also have left pubic ramus fracture. Pulmonary point of view, doing okay. Continue diuretics, supplement potassium, bronchodilator, antibiotics, sleep apnea precaution, and fall precaution. Followup electrolytes in the morning. Thank you and we will follow with you. Pablo Cantor MD
[2017-03-24 08:00] LABS: ALB/GLOB RATIO 1.1 (1.1-1.8); BILIRUBIN,DIRECT 0.6 mg/dL (0.0-0.4); BILIRUBIN,TOTAL 2.4 mg/dL (0.2-1.3); TOTAL PROTEIN 5.4 g/dL (5.8-8.3)
[2017-03-24] MEDS: HYDROmorphone 1 mg/ml ISec IVP PRN ×2 (08:30→21:05)
--- NOTE | 2017-03-24 09:31 | CP.PCM.PN ---
<Mahogany Murdock - Last Filed: 03/24/17 09:33> Subjective - Date & Time of Evaluation Date of Evaluation: 03/24/17 Time of Evaluation: 08:20 - Subjective Subjective: S&E at bedside, back pain a little better, had BM yesterday but now feeling "gassy", no reports of overt GI bleed, appetite ok, had some eggs, oatmeal, no N /V, sob or chest pain. Objective - Vital Signs/Intake and Output Vital Signs (last 24 hours): Temp Pulse Resp BP Pulse Ox 98.6 F 108 H 22 129/59 L 94 L 03/24/17 08:10 03/24/17 08:10 03/24/17 08:10 03/24/17 08:10 03/24/17 08:10 Intake and Output: 03/24/17 03/24/17 06:59 18:59 Intake Total 720 Output Total 300 Balance 420 - Medications Medications: Current Medications Acetaminophen (Tylenol 325mg Tab) 650 mg PO Q6H PRN PRN Reason: Pain, moderate (4-7) Betamethasone/Clotrimazole (Lotrisone) 0 gm TOP BID [facility] Last Admin: 03/23/17 17:06 Dose: 1 appful Calcium/Vitamin D (Oscal-D 250 Mg-125 Units Tab) 1 tab PO DAILY [facility] Last Admin: 03/23/17 11:20 Dose: 1 tab Docusate Sodium (Colace) 100 mg PO BID [facility] Last Admin: 03/23/17 17:15 Dose: 100 mg Famotidine (Pepcid) 40 mg PO HS [facility] Last Admin: 03/23/17 21:11 Dose: 40 mg Furosemide (Lasix) 80 mg IVP Q12 [facility] Last Admin: 03/23/17 21:11 Dose: 80 mg Hydromorphone HCl (Dilaudid) 1 mg IVP Q6H PRN PRN Reason: Pain, moderate (4-7) Last Admin: 03/24/17 08:30 Dose: 1 mg Lactulose (Enulose) 10 gm PO DAILY [facility] Last Admin: 03/23/17 11:17 Dose: 10 gm Levalbuterol HCl (Xopenex) 0.63 mg IH [id number] [facility] Last Admin: 03/24/17 08:26 Dose: 0.63 mg Metoclopramide HCl (Reglan) 10 mg PO 0600,1130,1630,2200 [facility] Stop: 03/25/17 23:59 Last Admin: 03/24/17 05:02 Dose: 10 mg Metoprolol Tartrate (Lopressor) 12.5 mg PO DAILY [facility] Last Admin: 03/23/17 11:20 Dose: 12.5 mg Potassium Chloride (K-Dur 20 Meq Er Tab) 40 meq PO BID [facility] Last Admin: 03/23/17 17:13 Dose: 40 meq Spironolactone (Aldactone) 25 mg PO BID [facility] Last Admin: 03/23/17 17:15 Dose: 25 mg - Labs Labs: 03/23/17 05:20 03/23/17 05:20 PT 13.3 Seconds (9.9-11.8) H 03/21/17 05:15 INR 1.23 (0.93-1.08) H 03/21/17 05:15 APTT 28.4 Seconds (23.7-30.8) 03/19/17 02:55 - Constitutional Appears: No Acute Distress - Head Exam Head Exam: NORMOCEPHALIC - Eye Exam Eye Exam: Normal appearance. absent: Scleral icterus - ENT Exam ENT Exam: Mucous Membranes Moist - Respiratory Exam Respiratory Exam: NORMAL BREATHING PATTERN. absent: Respiratory Distress - Cardiovascular Exam Cardiovascular Exam: +S1, +S2 - GI/Abdominal Exam GI & Abdominal Exam: Soft, Normal Bowel Sounds. absent: Guarding, Tenderness, Rebound - Extremities Exam Extremities Exam: Pedal Edema. absent: Calf Tenderness Additional comments: B/L multi podos boots on - Neurological Exam Neurological Exam: Alert, Awake, Oriented x3 - Skin Skin Exam: Dry, Warm Assessment and Plan - Assessment and Plan (Free Text) Assessment: Assessment: Bilateral lower extremity edema with erythema and edema may be cellulitis, lower extremity Dopplers were negative for DVT Liver cirrhosis Compression FX L4 Hyperbilirubinemia, improving Prominence of spleen seen on CAT scan with extensive varices Constipation Elevated BNP History of colonic AVMs CAD with stent COPD Plan: continue daily dose of lactulose 10 g, hold for greater than 2 stools/day or semi-loose stools on stool softners Heart Healthy Diet on reglan, recommend short course intervals, extrapyrmidal effects Continue Pepcid On Aldactone and Lasix Monitor electrolytes Ortho follow-up Seen and discussed w/ Dr. Freitas. <Stewart Freitas V - Last Filed: 03/24/17 23:14> Objective - Vital Signs/Intake and Output Vital Signs (last 24 hours): Temp Pulse Resp BP Pulse Ox 98.4 F 78 22 110/56 L 98 03/24/17 17:00 03/24/17 17:00 03/24/17 17:00 03/24/17 21:03 03/24/17 17:00 Intake and Output: 03/24/17 03/25/17 18:59 06:59 Intake Total 640 480 Balance 640 480 - Medications Medications: Current Medications Acetaminophen (Tylenol 325mg Tab) 650 mg PO Q6H PRN PRN Reason: Pain, moderate (4-7) Betamethasone/Clotrimazole (Lotrisone) 0 gm TOP BID [facility] Last Admin: 03/24/17 17:43 Dose: 1 appful Calcium/Vitamin D (Oscal-D 250 Mg-125 Units Tab) 1 tab PO DAILY [facility] Last Admin: 03/24/17 10:27 Dose: 1 tab Docusate Sodium (Colace) 100 mg PO BID [facility] Last Admin: 03/24/17 17:42 Dose: 100 mg Famotidine (Pepcid) 40 mg PO HS [facility] Last Admin: 03/24/17 21:05 Dose: 40 mg Furosemide (Lasix) 80 mg IVP Q12 [facility] Last Admin: 03/24/17 21:03 Dose: 80 mg Hydromorphone HCl (Dilaudid) 1 mg IVP Q6H PRN PRN Reason: Pain, moderate (4-7) Last Admin: 03/24/17 21:05 Dose: 1 mg Lactulose (Enulose) 10 gm PO DAILY [facility] Last Admin: 03/24/17 10:25 Dose: Not Given Levalbuterol HCl (Xopenex) 0.63 mg IH [id number] [facility] Last Admin: 03/24/17 19:18 Dose: 0.63 mg Metoclopramide HCl (Reglan) 10 mg PO 0600,1130,1630,2200 [facility] Stop: 03/25/17 23:59 Last Admin: 03/24/17 21:05 Dose: 10 mg Metolazone (Zaroxolyn) 5 mg PO DAILY [facility] Metoprolol Tartrate (Lopressor) 12.5 mg PO DAILY [facility] Last Admin: 03/24/17 10:26 Dose: 12.5 mg Potassium Chloride (K-Dur 20 Meq Er Tab) 40 meq PO BID [facility] Last Admin: 03/24/17 17:43 Dose: 40 meq Spironolactone (Aldactone) 25 mg PO BID [facility] Last Admin: 03/24/17 17:42 Dose: 25 mg - Labs Labs: 03/23/17 05:20 03/23/17 05:20 PT 13.3 Seconds (9.9-11.8) H 03/21/17 05:15 INR 1.23 (0.93-1.08) H 03/21/17 05:15 APTT 28.4 Seconds (23.7-30.8) 03/19/17 02:55 Attending/Attestation - Attestation I have personally seen and examined this patient.: Yes I have fully participated in the care of the patient.: Yes I have reviewed all pertinent clinical information, including history, physical exam and plan: Yes Notes (Text): The patient was seen and examined at bedside. Medical records, lab studies, imagings were reviewed. Last 24 hours events reviewed. Agreed with the above treatment plan as outlined in Mahogany Murdock NP's notes the with the addition of the following Patient feels better was sitting up in the chair. Patient is being followed by orthopedic doctor testing for pubic rami fracture and compression fractures of the vertebrae Patient is on pain medication. History of constipation. Hid have bowel movements now Patient has cryptogenic cirrhosis. Patient does have mildly elevated reticulocyte count and also slightly increased to indirect bilirubin suggesting of some element of hemolysis Continue to follow up the hemoglobin hematocrit and LFTs pLAN Patient has varices as would benefit from changing Metoprolol to nonselective beta blockers Follow-up of the LFT Patient is on Reglan 10 mg 4 times a day times a day would consider reducing the dose to 5 mg 3 times a day and only short duration Thank you very much for allowing us to participate in the care of the patient 03/24/17 23:11 03/24/17 23:13
[2017-03-24] MEDS: Potassium Chloride 20 mEq ER Tab PO SCH ×2 (10:21→17:43)
[2017-03-24] MEDS: Clotrimazole/Betamethasone Cream(15 gm) TOP SCH ×2 (10:27→17:43)
[2017-03-24] MEDS: Calcium-Vit D 250 mg-125 Units Tab UD PO SCH (10:27)
[2017-03-24] MEDS ORDERED: metOLazone 5 MG TAB PO STA (11:40)
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
--- NOTE | 2017-03-24 16:21 | PN ---
DATE: 03/24/2017 REASON FOR CONSULTATION: Followup CHF. SUBJECTIVE: The patient states that when she lie down she has to get up because she cannot breath. During the night, she has episode of PND. She still has swelling of legs. Denies chest pain or palpitation. PHYSICAL EXAMINATION VITAL SIGNS: Blood pressure 129/59, respirations 22, pulse 108, temperature 98.6. HEENT: Head is normocephalic. Eyes: Pupils normal. Conjunctivae slightly pale. NECK: JVP is low. Carotids equal. Thorax, AP diameter normal. LUNGS: Few basal rales. CARDIOVASCULAR: S1 and S2. Ejection systolic murmur, grade III/. No rub. ABDOMEN: Soft. Bowel sound normal. EXTREMITIES: She still have 4+ edema on the legs. LABORATORY DATA: WBC 3.7, hemoglobin 10.2, hematocrit 30.9, platelet 74. Sodium 138, potassium 4.3, BUN 18, creatinine 0.7, magnesium 1.7, phosphorus 3.3. Total protein 5.4 which is low, albumin 2.8 which is low. Total intake 600 and output total 300. DIAGNOSES: 1. Congestive heart failure. 2. Coronary artery disease. 3. History of angioplasty, 04/2009. 4. Severe aortic stenosis valve area of 0.6 cm2. 5. History of cirrhosis. 6. Thrombocytopenia. 7. Preserved left ventricular function. 8. Spinal stenosis. PLAN: The patient's output has been not adequate and the patient is getting PND and also still have 4+ edema bilateral leg. The patient is getting Lasix 80 mg IV q.12 hour and spironolactone 25 mg b.i.d. We will add Zaroxolyn 5 mg daily to improve the output and we will continue the medication metoprolol tartrate 12.5 mg daily, potassium 40 mEq b.i.d., Xopenex. We will monitor intake and output and swelling on the legs. We will follow with you. Pablo Shah MD
[2017-03-25] MEDS: Levalbuterol 0.63 MG/3 ML Inhal Soln UD IH SCH ×4 (01:00→20:38)
--- NOTE | 2017-03-25 02:07 | PN ---
The patient is a 76-year-old female. SUBJECTIVE: The patient was seen and examined on the bedside, sitting on the chair. No nausea, vomiting, or diarrhea. No hematuria or hematochezia. Swelling of the leg is getting better. No headache or dizziness. Feels better, had bowel movement yesterday. Feeling gassy. PHYSICAL EXAMINATION VITAL SIGNS: Temperature 98.6, pulse 108, respiratory rate 20, blood pressure 129/59, and pulse oximetry 94%. HEENT: Head is normocephalic and atraumatic. Eyes: PERRLA. Extraocular muscles intact. Conjunctivae clear. Nose is patent. Mucous membrane moist. NECK: Supple. No carotid bruits, JVD, or thyromegaly. CHEST: Bilaterally symmetrical. HEART: S1 and S2 positive. LUNGS: Clear to auscultation. ABDOMEN: Soft. Bowel sounds are present. No organomegaly. EXTREMITIES: Positive swelling. No cyanosis. Moving all four extremities. NEUROLOGIC: The patient is awake and alert, oriented x3. Cranial nerves II through XII were intact. MEDICATIONS: Lotrisone, calcium with vitamin D, Colace, Pepcid, Lasix, Dilaudid, Enulose, Xopenex, Reglan, Lopressor, and Aldactone. LABORATORY DATA: White blood cell is 3.7, hemoglobin 10.2, hematocrit 30.9, and platelets 74. Sodium 138, potassium 4.3, BUN 18, creatinine 0.7, and glucose 87. ASSESSMENT AND PLAN: The patient is a 76-year-old lady with leukopenia; anemia; thrombocytopenia; hyperbilirubinemia, improving; abnormal liver function tests, trending down; prominence of liver seen on CAT scan with extensive varices; constipation; elevated BNP; history of chronic arteriovenous malformations; coronary artery disease with cardiac stenting; chronic obstructive pulmonary disease; obstructive sleep apnea syndrome. Getting lactulose, getting Reglan. Continue Pepcid, Aldactone. Monitor electrolytes. Seen by Dr. Castellanos. Getting antibiotics from infectious disease. Seen by Dr. Shah and Dr. Cantor also. Getting physical therapy. Repeat labs. Kristin Rg MD [facility] # [id number]
--- NOTE | 2017-03-25 03:33 | PN ---
DATE: 03/24/2017 REFERRING PHYSICIAN: Dr. Rg. SUBJECTIVE: She is out of bed to chair. Feels better. Decreased cough and shortness of breath. No chest pain. Still have back and hip pain. Still have leg swelling. No dysuria, no hematuria. No diarrhea. OBJECTIVE: GENERAL: In no acute distress. VITAL SIGNS: Temperature is 98, heart rate 78, respiratory rate is 20, blood pressure 110/56, pulse ox 98% on room air. HEENT: Moist mucous membranes. Crowded airway. Mallampati score is IV. NECK: Supple. No JVD. LUNGS: Had a few crackles. HEART: S1 and S2. ABDOMEN: Soft, nontender, no organomegaly. EXTREMITIES: She has edema which has decreased since admission. NEUROLOGICAL: Awake and alert. Follows simple commands. MEDICATIONS: She is on Aldactone 25 mg twice a day, Colace 100 mg twice a day, Dilaudid 1 mg IV q.6 hours p.r.n., lactulose 10 mg daily, potassium 40 mEq twice a day, Lasix 80 mg q.12 hours, metoprolol tartrate 12.5 mg daily, Lotrisone affected area twice a day, calcium plus vitamin D one tablet daily, Pepcid 40 mg daily, Reglan 5 mg before meals and at bedtime, Tylenol p.r.n., Xopenex 0.63 q.6 hours p.r.n., Zaroxolyn 5 mg daily. LABORATORY DATA: Revealed total bilirubin 2.4, direct bili 0.6, AST 36, ALT 34, alk phos is 57, albumin is 2.8. Microbiology; blood culture and urine culture; there is no growth. IMPRESSION AND PLAN: Cardiomyopathy with severe aortic stenosis, coronary artery disease, heart failure, chronic obstructive lung disease, sleep apnea syndrome, pulmonary hypertension, cryptogenic cirrhosis, ascites, portal hypertension, recurrent lower extremity edema, cellulitis, pancytopenia, esophagitis, gastritis, multiple spinal compression fracture, left pubic ramus fracture. Clinically, she is improved. Leg swelling is better. Pain is improving. Continue bronchodilator. Keep head at 45 degrees. gastric prophylaxis, SCD to lower extremity. Follow up labs in the morning. Thank you and we will follow with you. Pablo Cantor MD
[2017-03-25] MEDS: Potassium Chloride 20 mEq ER Tab PO SCH ×2 (10:25→17:15)
[2017-03-25] MEDS: Clotrimazole/Betamethasone Cream(15 gm) TOP SCH ×2 (10:27→17:16)
[2017-03-25] MEDS: metOLazone 5 MG TAB PO SCH (10:32)
[2017-03-25] MEDS: Calcium-Vit D 250 mg-125 Units Tab UD PO SCH (10:33)
--- NOTE | 2017-03-25 13:54 | PN ---
DATE: 03/25/2017. REASON FOR CONSULTATION: Follow up congestive heart failure. SUBJECTIVE: The patient is sitting in the chair. Denies any chest pain, shortness of breath or having palpitations. OBJECTIVE: GENERAL: Not in apparent distress, sitting in the chair. VITAL SIGNS: Temperature afebrile, heart rate 89, blood pressure 106/81. HEENT: PERRLA. Extraocular muscles intact. NECK: Supple. No carotid bruits or thyromegaly. CHEST: Clear to auscultation. HEART: S1, S2 regular. ABDOMEN: Soft. EXTREMITIES: Clubbing, cyanosis negative. LABORATORY DATA: Blood workup as follows: WBC 3.7, hemoglobin 10.8, hematocrit of 30.9, and platelets 174. Chemistry: Sodium of 130, potassium of 4.3, chloride of 105, carbon dioxide of 27, anion gap of 10, BUN of 18, and creatinine of 0.7. Total bilirubin 2.4, direct bilirubin 0.6, total protein 5.6, albumin of 2.8 and albumin-globulin ratio of 1.1. IMPRESSION: The patient is 76-year-old female with past medical history significant for coronary artery disease status post PTCA 04/2009, cirrhosis, congestive heart failure, severe diastolic dysfunction, severe aortic stenosis valve area of 0.6 cm2, thrombocytopenia, preserved left ventricular function, spinal stenosis. RECOMMENDATION: Continue IV Lasix. Continue spironolactone. Continue metoprolol. The patient started Zaroxolyn. Monitor electrolytes closely. We will follow with you. Thank you, Dr. Rg for providing an opportunity in taking care of the patient, Laurie Killian. Pablo Guillermo MD
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
[2017-03-25] MEDS: HYDROmorphone 1 mg/ml ISec IVP PRN (19:42)
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
[2017-03-26] MEDS: Levalbuterol 0.63 MG/3 ML Inhal Soln UD IH SCH ×4 (01:50→21:29)
--- NOTE | 2017-03-26 06:50 | PN ---
DATE: 03/25/2017 REFERRING PHYSICIAN: Dr. Rg. SUBJECTIVE: The patient is out of bed to chair. Night was unremarkable. Feels better. Decreased cough. Decreased shortness of breath. Decreased abdominal girth. Still have the leg swelling. OBJECTIVE: GENERAL: In no acute distress. VITAL SIGNS: Temperature is 98, heart rate 80, respiratory rate is 20, blood pressure 116/52, pulse ox 95% on 2 L nasal cannula. HEENT: Moist mucous membranes. Crowded airway. NECK: Supple. No JVD. LUNGS: Had a few crackles in the bases. HEART: S1 and S2. ABDOMEN: Soft, some mild ascites. EXTREMITIES: Does have edema but decreasing. NEUROLOGICAL: Awake and alert. Follows simple commands. MEDICATIONS: She is on Aldactone 25 mg twice a day, Colace 100 mg twice a day, Dilaudid 1 mg q. 6 hours p.r.n., lactulose 10 mg daily, potassium 40 mEq twice a day, Lasix 80 mg twice a day, metoprolol tartrate 12.5 mg daily, Lotrisone cream on affected areas twice a day, vitamin D one tablet daily, Pepcid 40 mg daily, Reglan 5 mg before meals and at bedtime, Tylenol p.r.n., Xopenex 0.63 mg q. 6 hours, and Zaroxolyn 5 mg daily. LABORATORY DATA: Reviewed. IMPRESSION AND PLAN: Cardiomyopathy with severe aortic stenosis, pulmonary hypertension, coronary artery disease, heart failure, chronic obstructive lung disease, sleep apnea syndrome, cryptogenic cirrhosis, ascites, portal hypertension, recurrent lower extremity edema, cellulitis, pancytopenia, esophagitis, history of gastritis, history of multiple spine compression fracture, also a left pubic ramus fracture. Pulmonary point of view slowly improving, sleep apnea precaution, keep head at 45 degrees. Gastric prophylaxis. Sequential compression device to lower extremity. Continue diuretics. Follow up labs in the morning. Thank you and we will follow with you. Pablo Cantor MD
[2017-03-26 06:59] LABS: BLOOD UREA NITROGEN 23 mg/dL (7-21); CALCIUM 9.6 mg/dL (8.4-10.5); CARBON DIOXIDE 30 mmol/L (21-33); CHLORIDE 100 mmol/L (98-107); GFR AFRICAN-AMERICAN > 60; GLUCOSE,RANDOM 97 mg/dL (70-110); MAGNESIUM 1.7 mg/dL (1.7-2.2); SODIUM 138 mmol/L (132-148)
[2017-03-26 07:16] LABS: POTASSIUM 3.8 mmol/L (3.6-5.0)
[2017-03-26] MEDS: HYDROmorphone 1 mg/ml ISec IVP PRN ×2 (08:24→17:06)
[2017-03-26] MEDS: Potassium Chloride 20 mEq ER Tab PO SCH ×2 (10:38→18:25)
[2017-03-26] MEDS: Calcium-Vit D 250 mg-125 Units Tab UD PO SCH (10:38)
[2017-03-26] MEDS: metOLazone 5 MG TAB PO SCH (10:39)
[2017-03-26] MEDS: Clotrimazole/Betamethasone Cream(15 gm) TOP SCH ×2 (10:43→18:25)
[2017-03-26] MEDS ORDERED: Potassium Chloride 20 mEq ER Tab PO STA (13:01)
--- NOTE | 2017-03-26 18:31 | PN ---
DATE: 03/26/2017 SUBJECTIVE: The patient is in bed, in no acute distress, nontoxic, was seen earlier today in 565, bed 2. PHYSICAL EXAMINATION: VITAL SIGNS: Temperature is 98, blood pressure is 105/40, respiratory rate of 16. HEENT: Unremarkable. NECK: Supple. LUNGS: Decreased breath sounds. HEART: Normal S1, S2. ABDOMEN: Soft and nontender. LABORATORY EXAMINATION: Reveals a white count of 3.7, hemoglobin of 10 and platelets of 74. BUN of 23 and creatinine of 0.8. Urinalysis is noted. Microbiology reveals the blood cultures are negative. Urine cultures are negative. Review of orders reveals the patient is off of antibiotics. Dr. Cantor's note from today is reviewed and Dr. Rg's note is reviewed. ASSESSMENT AND PLAN: A 76-year-old female with bilateral lower extremity skin and skin soft tissue infection, nonpurulent, left greater than right, no evidence of deep venous thrombosis on ultrasound, clinically improved, status post treatment, chronic T12 vertebral compression fracture, disk bulge at L2-L5; hypertension; diabetes; history of right leg cellulitis; chronic obstructive lung disease; coronary artery disease and history of depression; cryptogenic liver cirrhosis and arteriovenous malformation, currently now off of antibiotics, normal white count and culture is negative. The patient is at risk for developing nosocomial infections. Abram Benitez MD
--- NOTE | 2017-03-26 23:46 | PN ---
DATE: 03/26/2017 REASON FOR CONSULTATION: Followup for congestive heart failure, negative mild aortic stenosis, history of coronary artery disease. SUBJECTIVE: The patient denies any chest pain, shortness of breath, any heart palpitations. He feels better. PHYSICAL EXAMINATION GENERAL: Sitting in the chair, not in apparent distress. VITAL SIGNS: Temperature afebrile, heart rate 84, blood pressure 105/49. HEENT: PERRLA. Extraocular muscles intact. NECK: Supple. No carotid bruits. No thyromegaly. CHEST: Clear to auscultation. HEART: S1, S2 regular. ABDOMEN: Soft. EXTREMITIES: Clubbing, cyanosis negative. LABORATORY DATA: Blood workup as follows: WBC 3.7, hemoglobin 10.8, hematocrit of 30.9, and platelet count 74,000. Chemistry: Sodium of 139, potassium of 3.2, chloride of 100, carbon dioxide of 30, anion gap of *------*, BUN of 26, and creatinine of 0.8. IMPRESSION: A 76-year-old female with past medical history significant for severe aortic stenosis, coronary artery status post percutaneous transluminal coronary angioplasty 04/2009, cirrhosis, congestive heart failure, severe diastolic dysfunction, severe aortic stenosis valve area of 0.6 cm2, thrombocytopenia, preserved left ventricular function, spinal stenosis, 2+ pedal edema. RECOMMENDATION: Continue IV Lasix. Continue spironolactone. Continue metoprolol. Zaroxolyn was started. Monitor electrolytes closely. The patient will get benefit from rehab therapy. We will supplement aggressively potassium. Monitor electrolytes in the morning. Pablo Guillermo MD
[2017-03-27] MEDS: Levalbuterol 0.63 MG/3 ML Inhal Soln UD IH SCH ×4 (02:07→20:05)
[2017-03-27 06:46] LABS: BASO # 0.05 K/mm3 (0.0-2.0); BASO % 1.4 % (0.0-3.0); EOS # 0.2 (0.0-0.7); EOS % 5.9 % (1.5-5.0); GRAN # 1.7 (1.4-6.5); GRAN % 48.1 % (50.0-68.0); HEMATOCRIT 32.3 % (36.0-48.0); LYMPH % 28.8 % (22.0-35.0); MEAN CELL VOLUME 93.9 fl (80.0-105.0); MEAN CORPUSCULAR HEMOGLOBIN 31.1 pg (25.0-35.0); MEAN CORPUSCULAR HGB CONC 33.1 g/dl (31.0-37.0); MONO # 0.6 (0.1-0.6); MONO % 15.8 % (1.0-6.0); RED CELL DISTRIBUTION WIDTH 15.2 % (11.5-14.5); WHITE BLOOD COUNT 3.5 10^3/ul (4.5-11.0)
[2017-03-27 07:16] LABS: ALB/GLOB RATIO 1.1 (1.1-1.8); ALKALINE PHOSPHATASE 62 U/L (38-133); ALT/SGPT 29 U/L (7-56); AST/SGOT 38 U/L (15-39); BILIRUBIN,TOTAL 2.1 mg/dL (0.2-1.3); BLOOD UREA NITROGEN 24 mg/dL (7-21); CALCIUM 10.1 mg/dL (8.4-10.5); CARBON DIOXIDE 32 mmol/L (21-33); CHLORIDE 98 mmol/L (98-107); GFR AFRICAN-AMERICAN > 60; GLUCOSE,RANDOM 106 mg/dL (70-110); MAGNESIUM 1.6 mg/dL (1.7-2.2); PHOSPHOROUS 4.1 mg/dL (2.5-4.5); POTASSIUM 4.7 mmol/L (3.6-5.0); SODIUM 137 mmol/L (132-148); TOTAL PROTEIN 5.4 g/dL (5.8-8.3)
--- NOTE | 2017-03-27 07:18 | PN ---
DATE: 03/26/2017 PULMONARY NOTE SUBJECTIVE: The patient is resting in chair with room air and no complaints of increased shortness of breath, cough, wheezing, chest congestion, no chest pain. No obvious fever, chills, nausea, or vomiting. The patient still has lower extremity swelling. PHYSICAL EXAMINATION: VITAL SIGNS: Note that her temperature is 98, pulse is 84, respirations are 18, and BP is 105/49. SKIN: Warm and dry. HEENT: Head is atraumatic, normocephalic. Eyes reactive to light. Ears, nose and throat seem to be within normal limits. NECK: Supple. No JVD. No thyroid enlargement. No lymph nodes. HEART: Regular rate and rhythm. Normal S1 and S2. LUNGS: Rare rhonchi at the bases. ABDOMEN: Soft, nontender, normal bowel sounds. GENITALIA AND RECTAL: Deferred. MUSCULOSKELETAL: No joint deformities. EXTREMITIES: Reveal lower extremity edema. NEUROLOGICAL: She seems to be grossly intact. IMPRESSION: This patient has cardiomyopathy, severe aortic stenosis, pulmonary hypertension, obstructive sleep apnea, cirrhosis, chronic obstructive lung disease, as well as cellulitis, gastritis and spinal fractures. PLAN: We will continue with aggressive pulmonary toilet and keep the head at 45 degrees. The patient is getting prophylaxis for gastritis and compression device to lower extremities. Continue with diuretics and we will follow closely. He Hogue MD
[2017-03-27] MEDS: HYDROmorphone 1 mg/ml ISec IVP PRN (08:36)
[2017-03-27] MEDS: Potassium Chloride 20 mEq ER Tab PO SCH ×2 (10:55→17:40)
[2017-03-27] MEDS: Clotrimazole/Betamethasone Cream(15 gm) TOP SCH ×2 (10:56→17:41)
[2017-03-27] MEDS: Calcium-Vit D 250 mg-125 Units Tab UD PO SCH (10:56)
[2017-03-27] MEDS: metOLazone 5 MG TAB PO SCH (10:58)
[2017-03-27] MEDS: Magnesium Oxide 400 mg Tab UD PO SCH (11:52)
[2017-03-27] MEDS ORDERED: Magnesium Sulfate 1 gm in D5W 1 GM/100 ML BAG IVPB ONE (12:36)
--- NOTE | 2017-03-27 17:27 | PN ---
DATE: 03/26/2017 SUBJECTIVE: The patient is 76 years old female. The patient is seen and examined at the bedside. Sitting on the chair. No nausea, vomiting, or diarrhea. Complaining about shortness of breath even when she is going to the bathroom and pain in the back radiating towards the extremities. No obvious fever, chills, or nausea. Swelling of the leg is getting better. PHYSICAL EXAMINATION: VITAL SIGNS: Temperature 98.1, pulse 84, respiratory rate 18, and blood pressure 110/50. HEENT: Head; normocephalic and atraumatic. Eyes; PERRLA. Extraocular muscles intact. Conjunctivae clear. Nose patent. Mucous membrane moist. NECK: Supple. No carotid bruits, JVD, or thyromegaly. CHEST: Bilaterally symmetrical. HEART: S1 and S2 positive. LUNGS: Clear to auscultation. ABDOMEN: Soft. Bowel sounds are present. No organomegaly. EXTREMITIES: No edema. No cyanosis. NEUROLOGIC: The patient is awake and alert. Follow simple commands. MEDICATIONS: Aldactone, Colace, Dilaudid, lactulose, potassium, Lasix, Lopressor, Lotrisone locally, calcium, Pepcid, Reglan, Tylenol, Xopenex, and Zaroxolyn. LABORATORY DATA: White blood cell is 3.5, hemoglobin 10.7, and platelets 74. Sodium 138, potassium 3.8, BUN 26, creatinine 0.8, and calcium 1.7. ASSESSMENT AND PLAN: Ms. Maria D Sullivan is 76-year-old lady with abnormal liver function test, pancytopenia, cardiomyopathy, severe aortic stenosis, pulmonary hypertension, obstructive sleep apnea syndrome, chronic obstructive lung disease, cellulitis of the extremities, gastritis, spinal fracture, and hip fracture. Orthopedic is on the case. Getting physical therapy. Cellulitis of the leg. Getting antibiotics. Cellulitis of the leg is nonpurulent left greater than the right, no evidence of deep vein thrombosis, chronic T12 vertebral compression fracture, disc bulging at L2, L5, cryptogenic liver cirrhosis, arteriovenous malformation, now off the antibiotics as per ID, deconditioned, need rehab, and we will follow up. Kristin Rg MD
[2017-03-27] MEDS: HYDROmorphone 0.5 mg/0.5 ml ISec IVP PRN (21:43)
--- NOTE | 2017-03-27 21:43 | PN ---
DATE: 03/27/2017 LOCATION: Patient in room 565, bed 2. REASON FOR CONSULTATION: Followup congestive heart failure, mild aortic stenosis, history of coronary artery disease. SUBJECTIVE: The patient is sitting in chair without any chest pain, shortness of breath or palpitation. Her edema in the legs has also improved. PHYSICAL EXAMINATION: VITAL SIGNS: Blood pressure is 105/45, respirations 18, pulse 90, temperature 97.9. HEENT: Head is normocephalic. Eyes, pupils normal. Conjunctivae slightly pale. NECK: JVP low. Carotids equal. Thorax, AP diameter normal. LUNGS: No rales. CARDIOVASCULAR: S1 and S2. Pansystolic murmur, grade III/. No rub. ABDOMEN: Soft. No organomegaly. EXTREMITIES: No clubbing. No cyanosis. Her edema in legs has improved. LABORATORY DATA: WBC 3.5, hemoglobin 10.7, hematocrit 32.3, platelet 91. Sodium 137, potassium 4.7, BUN 24, creatinine 0.8, magnesium 1.6. Total protein 5.4, albumin 2.8. DIAGNOSES: Severe aortic stenosis, coronary artery disease, status post angioplasty in April 2009, cirrhosis of the liver, congestive heart failure, severe diastolic dysfunction, aortic valve area 0.6 cm2 consistent with severe aortic stenosis, thrombocytopenia, spinal stenosis. PLAN: The patient is on spironolactone 25 mg b.i.d., potassium chloride 40 mEq b.i.d., furosemide 80 mg IV q. 12 hours, metoprolol tartarate 12.5 mg p.o. daily, magnesium oxide 400 mg p.o. daily, has been started today, her magnesium on lab today is 1.6, Pepcid 40 mg daily, Xopenex hand nebulizer therapy. Zaroxolyn 5 mg p.o. daily continued and since then, the patient has good diuretic effect and swelling in legs has been improving. We will give one dose of *------* today and we will repeat lab in the morning. Pablo Shah MD
[2017-03-28] MEDS: Levalbuterol 0.63 MG/3 ML Inhal Soln UD IH SCH ×4 (02:15→19:33)
--- NOTE | 2017-03-28 02:43 | PN ---
PULMONARY PROGRESS NOTE DATE: 03/27/2017 REFERRING PHYSICIAN: Dr. Rg. SUBJECTIVE: The patient is out of bed to chair, having dinner. Night was unremarkable.. No headache. No rhinitis. No significant cough. No shortness of breath. No chest pain. Has hip pain and back pain. Leg swelling is slowly improving. OBJECTIVE: GENERAL: In no acute distress. VITAL SIGNS: Temperature is 98, heart rate 95, respiratory rate is 20, blood pressure 126/59 and pulse ox 96% on room air. HEENT: Moist mucous membranes. Carotid airway. Mallampati score is 4. NECK: Supple. No JVD. LUNGS: Fair airflow with few rhonchi. HEART: S1 and S2. ABDOMEN: Soft and nontender. No organomegaly. EXTREMITIES: Edema is slowly decreasing. NEUROLOGIC: Awake and alert. Follow simple commands. MEDICATIONS: She is on Aldactone 25 mg twice a day, Colace 100 mg twice a day, Dilaudid 0.5 mg q. 6 hours p.r.n., lactulose 10 mg daily, potassium 40 mEq twice a day, Lasix 80 mg q. 12 hours, metoprolol tartrate 12.5 mg daily, magnesium oxide 400 mg daily, vitamin D one tablet daily, Pepcid 20 mg at bedtime, Reglan 5 mg a.c. and at bedtime, Tylenol p.r.n., Xopenex 0.60 mg q. 6 hours and Zaroxolyn 5 mg daily. LABORATORY DATA: Shows hemoglobin 10.7, hematocrit 32.3, WBC 3.5 and platelets is 91. Sodium 137, potassium 4.7, chloride 98, bicarbonate 22, BUN 24, creatinine is 0.8, calcium is 10.1, phosphorus 4.1, magnesium is 1.6, total bilirubin 2.1, AST 38, ALT 29, alkaline phosphatase is 62, albumin 2.8. Microbiology; blood culture and urine culture, there is no growth. IMPRESSION AND PLAN: Cardiomyopathy with severe aortic stenosis, pulmonary hypertension, coronary artery disease, heart failure, chronic obstructive lung disease, sleep apnea syndrome, cryptogenic cirrhosis, ascites, portal hypertension, recurrent lower extremity edema and cellulitis, pancytopenia, history of esophagitis, gastritis, history of multiple spine compression fracture, also had left pubic ramus fracture. Pulmonary point of view, doing okay. Continue bronchodilator. Keep head at 45 degrees. She refused to use continuous positive airway pressure, continue diuretics, afterload lens cutter, follow up electrolyte. Start physical therapy. Thank you and we will follow with you. Pablo Cantor MD
--- NOTE | 2017-03-28 04:25 | PN ---
DATE: SUBJECTIVE: The patient is 76 years old female. The patient was seen and examined at the bedside, sitting on the chair due to physical therapy, feeling better for the legs. Back pain is better. Still having pelvic pain, but no nausea, vomiting or diarrhea. No hematuria or hematochezia. No shortness of breath. PHYSICAL EXAMINATION: VITAL SIGNS: Temperature 98.4, pulse 95, blood pressure 120/60, and respiratory rate 20. HEENT: Head is normocephalic and atraumatic. Eyes, PERRLA. Extraocular muscles are intact. Conjunctivae clear. Nose is patent. Mucous membrane moist. NECK: Supple. No carotid bruits. No JVD or thyromegaly. CHEST: Bilaterally symmetrical. HEART: S1 and S2 positive. LUNGS: Clear to auscultation. ABDOMEN: Soft. Bowel sounds positive. No organomegaly. EXTREMITIES: No edema. No cyanosis. NEUROLOGICAL: The patient is awake and alert. Moving all four extremities. No focal deficit. MEDICATIONS: Aldactone, Colace, Dilaudid, Enulose, K-Dur, Lasix and Lopressor. LABORATORY DATA: White blood cell 3.5, hemoglobin 10.7, hematocrit 32.3 and platelets 91. Sodium 137, potassium 4.7, BUN 24, creatinine 0.8, magnesium 1.6 and total bilirubin 2.1. ASSESSMENT AND PLAN: Ms. Laurie Killian is 76 years old lady with increased BUN, hypomagnesemia; abnormal liver function tests, trending down; leukopenia; anemia; history of coronary artery disease, status post cardiac stenting; history of mild aortic stenosis, cirrhosis of liver; congestive heart failure; severe diastolic dysfunction, thrombocytopenia, spinal stenosis. The patient is getting physical therapy. Her is working harder to get authorization for TCU. She needs TCU, feeling better after physical therapy. We will follow. Kristin Rg MD
[2017-03-28 07:52] LABS: ALKALINE PHOSPHATASE 65 U/L (38-133); ALT/SGPT 31 U/L (7-56); AST/SGOT 37 U/L (15-39); BILIRUBIN,TOTAL 2.3 mg/dL (0.2-1.3); BLOOD UREA NITROGEN 24 mg/dL (7-21); CALCIUM 10.1 mg/dL (8.4-10.5); CARBON DIOXIDE 32 mmol/L (21-33); CHLORIDE 97 mmol/L (95-110); GFR AFRICAN-AMERICAN > 60; GLUCOSE,RANDOM 97 mg/dL (70-110); MAGNESIUM 1.7 mg/dL (1.7-2.2); PHOSPHOROUS 3.5 mg/dL (2.5-4.5); POTASSIUM 4.1 mmol/L (3.6-5.0); SODIUM 135 mmol/L (132-148); TOTAL PROTEIN 5.5 g/dL (5.8-8.3)
[2017-03-28] MEDS: HYDROmorphone 0.5 mg/0.5 ml ISec IVP PRN ×2 (08:46→18:20)
[2017-03-28] MEDS: Potassium Chloride 20 mEq ER Tab PO SCH ×2 (09:32→18:14)
[2017-03-28] MEDS: Magnesium Oxide 400 mg Tab UD PO SCH (09:32)
[2017-03-28] MEDS: metOLazone 5 MG TAB PO SCH (09:32)
[2017-03-28] MEDS: Calcium-Vit D 250 mg-125 Units Tab UD PO SCH (09:32)
[2017-03-28] MEDS: Clotrimazole/Betamethasone Cream(15 gm) TOP SCH ×2 (09:33→18:14)
--- NOTE | 2017-03-28 14:09 | PN ---
DATE: 03/28/2017 REASON FOR CONSULTATION: Follow up congestive heart failure, aortic stenosis, history of coronary artery disease. SUBJECTIVE: The patient feels much better on diuretics Lasix and Zaroxolyn. Leg edema is going down and feels less short of breath. OBJECTIVE: GENERAL: Sitting in a chair, not in apparent distress. PHYSICAL EXAMINATION: VITAL SIGNS: Temperature afebrile, heart rate 95, blood pressure 110/50. HEENT: PERRLA. Extraocular muscles intact. NECK: Supple. No carotid bruit. No thyromegaly. CHEST: Clear to auscultation. HEART: S1 and S2, regular. ABDOMEN: Soft. EXTREMITIES: Clubbing cyanosis negative. 2+ to 3+ pitting edema. LABORATORY DATA: WBC 3.5, hemoglobin 10.7, hematocrit 32.3, platelets 191 as of yesterday. Chemistry: Sodium 135, potassium 4.1, chloride 97, carbon dioxide 30, anion gap of 10, BUN 24, creatinine 0.8. Total protein 5.5, albumin 2.7, albumin/globulin ration 1. IMPRESSION: Severe aortic stenosis, coronary artery disease status post PTCA, 04/2009, cirrhosis of the liver, congestive heart failure, diastolic dysfunction, severe aortic valve area 0.6 cm2, thrombocytopenia, spinal stenosis. RECOMMENDATION: Continue spironolactone supplement potassium as needed, Lasix, metoprolol 12.5 mg daily, supplement electrolyte as needed, avoid DuoNeb nebulizer treatment, put the Xopenex. The patient is on Zaroxolyn. Monitor electrolytes closely. We will follow with you. We will repeat electrolytes in the morning. The patient is on high doses of diuretics. Thank you Dr. Rg for providing me the opportunity in taking care of patient, Laurie Killian. Pablo Guillermo MD
--- NOTE | 2017-03-29 00:20 | PN ---
DATE: 03/28/2017 PULMONARY PROGRESS NOTE REFERRING PHYSICIAN: Dr. Rg. SUBJECTIVE: The patient is out of bed to chair, feels better, upset because she was told she need to go to subacute. No headache, no rhinitis, no nausea. Spine pain is better, hip pain is better. Still have a leg swelling. OBJECTIVE: GENERAL: In no acute distress. VITAL SIGNS: Temperature is 98, heart rate is 81, respiratory rate is 20, blood pressure 135/68 and pulse ox 96% on room air. HEENT: Moist mucous membranes. Carotid airway. NECK: Supple. No JVD. LUNGS: Fair airflow with rhonchi. HEART: S1 and S2. ABDOMEN: Soft, nontender, nondistended. Has some ascites. EXTREMITIES: Still have edema. NEUROLOGIC: Awake and alert. Follow simple commands. MEDICATIONS: She is on Aldactone 25 mg twice a day, Colace 100 mg twice a day, Dilaudid 0.5 mg q. 6 h. p.r.n., lactulose p.o. twice a day, potassium 40 mEq twice a day, Lasix 80 mg daily, metoprolol tartrate 12.5 mg daily, Lotrisone affected areas twice a day, magnesium oxide 400 mg daily, vitamin D one tablet daily, Pepcid 40 mg at bedtime, Reglan 5 mg before meals and at bedtime, Tylenol p.r.n. basis, Xopenex inhale q. 6 h., and Zaroxolyn 5 mg daily. LABORATORY DATA: Shows sodium 135, potassium 4.1, chloride 97, bicarbonate 32, BUN 24, creatinine 0.8, glucose is 97, calcium is 10.1, phosphorus 3.5. Total bilirubin 2.3, AST 37, ALT 31, alkaline phosphatase 65. Albumin is 2.7. IMPRESSION AND PLAN: Cardiomyopathy with severe aortic stenosis, pulmonary hypertension, coronary artery disease, heart failure, chronic obstructive lung disease, sleep apnea syndrome, cryptogenic cirrhosis, ascites, portal hypertension, recurrent lower extremity edema and cellulitis, history of esophagitis, gastritis, multiple spine compression fracture, also have left pubic ramus fracture. Pulmonary point of view, doing okay. Continue bronchodilator. Sleep apnea precaution. 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 Supplement potassium. Elevate lower extremities. Fall precaution. Supplement calcium. Thank you and we will follow with you. Pablo Cantor MD [facility] # [id number]
[2017-03-29] MEDS: Levalbuterol 0.63 MG/3 ML Inhal Soln UD IH SCH ×4 (01:11→19:55)
--- NOTE | 2017-03-29 04:40 | PN ---
DATE: SUBJECTIVE: This patient was seen and evaluated earlier, complains of constipation, did not move her bowels. The patient has been on lactulose 15 mL/10 g a day, along with Colace. PHYSICAL EXAMINATION VITAL SIGNS: On examination, temperature 98.2, blood pressure 135/68, pulse 81, respirations 20. HEENT: Atraumatic, anicteric. NECK: Supple. HEART: S1 and S2 heard. LUNGS: Bilateral air entry present. ABDOMEN: Soft. There is no tenderness. EXTREMITIES: No cyanosis. No clubbing. NEUROLOGIC: Alert and oriented. LABORATORY DATA: Total bilirubin 2.3, albumin 2.7. IMPRESSION: This is a 76-year-old patient cirrhosis of the liver cryptogenic admitted with abdominal pain, constipation, improved. The patient has compression fracture of the vertebrae. The patient does have coronary artery disease status post WAX CUTTER, carotid artery stenosis, history of thrombocytopenia, awaiting for . We will increase the lactulose to 15 mL p.o. b.i.d. Follow up of the LFTs. Thank you very much for allowing us to participate in the care of the patient. Stewart Freitas MD
[2017-03-29 07:45] LABS: BLOOD UREA NITROGEN 25 mg/dL (7-21); CALCIUM 9.9 mg/dL (8.4-10.5); CARBON DIOXIDE 30 mmol/L (21-33); CHLORIDE 98 mmol/L (98-107); GFR AFRICAN-AMERICAN > 60; GLUCOSE,RANDOM 88 mg/dL (70-110); MAGNESIUM 1.8 mg/dL (1.7-2.2); POTASSIUM 3.9 mmol/L (3.6-5.0); SODIUM 135 mmol/L (132-148)
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
[2017-03-29] MEDS: metOLazone 5 MG TAB PO SCH (09:40)
[2017-03-29] MEDS: HYDROmorphone 0.5 mg/0.5 ml ISec IVP PRN ×2 (10:47→19:15)
[2017-03-29] MEDS: Clotrimazole/Betamethasone Cream(15 gm) TOP SCH ×2 (10:48→18:04)
[2017-03-29] MEDS: Potassium Chloride 20 mEq ER Tab PO SCH ×2 (10:50→18:12)
[2017-03-29] MEDS: Magnesium Oxide 400 mg Tab UD PO SCH (10:50)
[2017-03-29] MEDS: Calcium-Vit D 250 mg-125 Units Tab UD PO SCH (10:51)
[2017-03-29 16:57] VITALS: BP 103/41; PULSE 91; RESP 20; TEMP 98.2; O2SAT 99
--- NOTE | 2017-03-29 17:09 | PN ---
DATE: 03/29/2017 LOCATION: Patient in room 565, bed 2. REASON FOR CONSULTATION: Followup congestive heart failure, mild aortic stenosis, coronary artery disease. SUBJECTIVE: The patient's breathing is stable. Denies chest pain, shortness of breath, or palpitation. The patient's edema in legs also continues to improve. PHYSICAL EXAMINATION: VITAL SIGNS: Blood pressure 123/63, respirations 18, pulse 83, temperature 98. HEENT: Head is normocephalic. Eyes, pupils normal. Conjunctivae slightly pale. NECK: JVP low. Carotids equal. Thorax, AP diameter normal. LUNGS: No rales. CARDIOVASCULAR: S1 and S2. Ejection systolic murmur, grade III/. No rub. ABDOMEN: Soft. No organomegaly. EXTREMITIES: No clubbing. No cyanosis. LABORATORY DATA: WBC 3.5, hemoglobin 10.7, hematocrit 32.3, platelet 91. Sodium 135, potassium 3.9, BUN 25, creatinine 0.9, random glucose 88, calcium 9.9, magnesium 1.8. Total protein 5.5, albumin 2.7. DIAGNOSES: Severe aortic stenosis, coronary artery disease, status post angioplasty in April 2009, cirrhosis of liver, congestive heart failure, severe diastolic dysfunction, aortic valve area 0.6 cm2 consistent with severe aortic stenosis, thrombocytopenia, spinal stenosis. PLAN: The patient on spironolactone 25 b.i.d., potassium 40 mEq b.i.d., Lasix 80 mg p.o. daily, metoprolol 12.5 mg p.o. daily, mag oxide 400 mg p.o. daily, Pepcid 40 mg p.o. at bedtime, Zaroxolyn 5 mg daily. We will continue present therapy. We will follow with you. Pablo Shah MD
--- NOTE | 2017-03-29 18:41 | PN ---
DATE: 03/29/2017 REFERRING PHYSICIAN: Dr. Rg. SUBJECTIVE: The patient is out of bed to chair. Night sweat was unremarkable. No headache. No rhinitis. No cough, no sputum production. No , leg swelling. OBJECTIVE: GENERAL: In no acute distress. VITAL SIGNS: Temperature is 98, heart rate is 83, respiratory rate 18, blood pressure 123/62, pulse oximetry 98% on room air. HEENT: Moist mucous membrane and crowded airway . . Has a murmur. ABDOMEN: Soft, nontender. No organomegaly. EXTREMITIES: edema. NEUROLOGIC: Awake and alert. Follows simple commands. MEDICATIONS: She is Aldactone 25 mg twice a day, Colace 100 mg twice a day, Dilaudid 0.5 mg every 6 hour p.r.n., lactulose p.r.n. basis, potassium 40 mEq twice a day, Lasix 80 mg daily, metoprolol tartrate 12.5 mg daily, Lotrisone affected areas twice a day, magnesium oxide 400 daily, vitamin D one tablet daily, Pepcid 40 mg daily, Reglan 5 mg before meals and at bedtime, Tylenol p.r.n. basis, Xopenex every 6 hours, Zaroxolyn 5 mg daily. LABORATORY DATA: Reviewed and noted. Sodium 135. potassium 2.9, chloride 98, bicarbonate 30, BUN 25, creatinine 0.9, glucose is 88, calcium is 9.9, magnesium 1.8. Microbiology, blood culture and urine culture, there is no growth. IMPRESSION AND PLAN: Cardiomyopathy with severe aortic stenosis, pulmonary hypertension, coronary artery disease, heart failure, chronic obstructive lung disease, sleep apnea syndrome, cryptogenic cirrhosis, portal hypertension, recurrent lower extremity edema and cellulitis, esophagitis, gastritis, multiple spine compression fracture, left pubic ramus fracture. Pulmonary point of view doing okay. Spoke to nursing staff. Need a physical therapy evaluation. Good candidate for TCU . Cannot go home alone, she lives herself. Continue diuretic supplement of potassium. Sleep apnea precaution. Gastric prophylaxis. Thank you and we will follow with you. Pablo Cantor MD
--- NOTE | 2017-03-29 23:48 | CP.PCM.PN ---
Subjective - Date & Time of Evaluation Date of Evaluation: 03/27/17 Time of Evaluation: 10:30 Objective - Vital Signs/Intake and Output Vital Signs (last 24 hours): Temp Pulse Resp BP Pulse Ox 98.4 F 95 H 20 120/60 96 03/27/17 16:00 03/27/17 16:00 03/27/17 16:00 03/27/17 21:41 03/27/17 16:00 Intake and Output: 03/27/17 03/28/17 18:59 06:59 Intake Total 720 540 Balance 720 540 - Medications Medications: Current Medications Acetaminophen (Tylenol 325mg Tab) 650 mg PO Q6H PRN PRN Reason: Pain, moderate (4-7) Betamethasone/Clotrimazole (Lotrisone) 0 gm TOP BID [facility] Last Admin: 03/27/17 17:41 Dose: 1 appful Calcium/Vitamin D (Oscal-D 250 Mg-125 Units Tab) 1 tab PO DAILY [facility] Last Admin: 03/27/17 10:56 Dose: 1 tab Docusate Sodium (Colace) 100 mg PO BID [facility] Last Admin: 03/27/17 10:56 Dose: 100 mg Famotidine (Pepcid) 40 mg PO HS [facility] Last Admin: 03/27/17 21:43 Dose: 40 mg Furosemide (Lasix) 80 mg IVP Q12 [facility] Last Admin: 03/27/17 21:41 Dose: 80 mg Hydromorphone HCl (Dilaudid) 0.5 mg IVP Q6H PRN PRN Reason: Pain, severe (8-10) Last Admin: 03/27/17 21:43 Dose: 0.5 mg Lactulose (Enulose) 10 gm PO DAILY [facility] Last Admin: 03/27/17 10:54 Dose: 10 gm Levalbuterol HCl (Xopenex) 0.63 mg IH [id number] [facility] Last Admin: 03/27/17 20:05 Dose: Not Given Magnesium Oxide (Mag-Ox) 400 mg PO DAILY [facility] Last Admin: 03/27/17 11:52 Dose: 400 mg Metoclopramide HCl (Reglan) 5 mg PO ACHS [facility] Last Admin: 03/27/17 21:43 Dose: 5 mg Metolazone (Zaroxolyn) 5 mg PO DAILY [facility] Last Admin: 03/27/17 10:58 Dose: 5 mg Metoprolol Tartrate (Lopressor) 12.5 mg PO DAILY [facility] Last Admin: 03/27/17 11:08 Dose: Not Given Potassium Chloride (K-Dur 20 Meq Er Tab) 40 meq PO BID [facility] Last Admin: 03/27/17 17:40 Dose: 40 meq Spironolactone (Aldactone) 25 mg PO BID [facility] Last Admin: 03/27/17 17:41 Dose: 25 mg - Labs Labs: 03/27/17 06:15 03/27/17 06:15 PT 13.3 Seconds (9.9-11.8) H 03/21/17 05:15 INR 1.23 (0.93-1.08) H 03/21/17 05:15 APTT 28.4 Seconds (23.7-30.8) 03/19/17 02:55
--- NOTE | 2017-03-29 23:48 | CP.PCM.PN ---
Subjective - Date & Time of Evaluation Date of Evaluation: 03/26/17 Time of Evaluation: 13:00 Objective - Vital Signs/Intake and Output Vital Signs (last 24 hours): Temp Pulse Resp BP Pulse Ox 98 F 84 18 120/62 94 L 03/26/17 08:18 03/26/17 10:43 03/26/17 08:18 03/26/17 21:26 03/26/17 08:18 Intake and Output: 03/26/17 03/27/17 18:59 06:59 Intake Total 780 Balance 780 - Medications Medications: Current Medications Acetaminophen (Tylenol 325mg Tab) 650 mg PO Q6H PRN PRN Reason: Pain, moderate (4-7) Betamethasone/Clotrimazole (Lotrisone) 0 gm TOP BID [facility] Last Admin: 03/26/17 18:25 Dose: 1 appful Calcium/Vitamin D (Oscal-D 250 Mg-125 Units Tab) 1 tab PO DAILY [facility] Last Admin: 03/26/17 10:38 Dose: 1 tab Docusate Sodium (Colace) 100 mg PO BID [facility] Last Admin: 03/26/17 18:25 Dose: 100 mg Famotidine (Pepcid) 40 mg PO HS [facility] Last Admin: 03/26/17 21:25 Dose: 40 mg Furosemide (Lasix) 80 mg IVP Q12 [facility] Last Admin: 03/26/17 21:26 Dose: 80 mg Hydromorphone HCl (Dilaudid) 1 mg IVP Q6H PRN PRN Reason: Pain, moderate (4-7) Last Admin: 03/26/17 17:06 Dose: 1 mg Lactulose (Enulose) 10 gm PO DAILY [facility] Last Admin: 03/26/17 10:39 Dose: 10 gm Levalbuterol HCl (Xopenex) 0.63 mg IH [id number] [facility] Last Admin: 03/26/17 21:29 Dose: 0.63 mg Metoclopramide HCl (Reglan) 5 mg PO ACHS [facility] Last Admin: 03/26/17 21:25 Dose: 5 mg Metolazone (Zaroxolyn) 5 mg PO DAILY [facility] Last Admin: 03/26/17 10:39 Dose: 5 mg Metoprolol Tartrate (Lopressor) 12.5 mg PO DAILY [facility] Last Admin: 03/26/17 10:43 Dose: Not Given Potassium Chloride (K-Dur 20 Meq Er Tab) 40 meq PO BID [facility] Last Admin: 03/26/17 18:25 Dose: 40 meq Spironolactone (Aldactone) 25 mg PO BID [facility] Last Admin: 03/26/17 18:25 Dose: 25 mg - Labs Labs: 03/23/17 05:20 03/26/17 06:00 PT 13.3 Seconds (9.9-11.8) H 03/21/17 05:15 INR 1.23 (0.93-1.08) H 03/21/17 05:15 APTT 28.4 Seconds (23.7-30.8) 03/19/17 02:55 Assessment and Plan - Assessment and Plan (Free Text) Assessment: p
--- NOTE | 2017-03-29 23:48 | CP.PCM.PN ---
Subjective - Date & Time of Evaluation Date of Evaluation: 03/25/17 Time of Evaluation: 17:30 Objective - Vital Signs/Intake and Output Vital Signs (last 24 hours): Temp Pulse Resp BP Pulse Ox 98.3 F 80 18 116/52 L 95 03/25/17 16:17 03/25/17 16:17 03/25/17 16:17 03/25/17 21:32 03/25/17 16:17 Intake and Output: 03/25/17 03/26/17 18:59 06:59 Intake Total 480 500 Balance 480 500 - Medications Medications: Current Medications Acetaminophen (Tylenol 325mg Tab) 650 mg PO Q6H PRN PRN Reason: Pain, moderate (4-7) Betamethasone/Clotrimazole (Lotrisone) 0 gm TOP BID [facility] Last Admin: 03/25/17 17:16 Dose: 1 appful Calcium/Vitamin D (Oscal-D 250 Mg-125 Units Tab) 1 tab PO DAILY [facility] Last Admin: 03/25/17 10:33 Dose: 1 tab Docusate Sodium (Colace) 100 mg PO BID [facility] Last Admin: 03/25/17 17:16 Dose: 100 mg Famotidine (Pepcid) 40 mg PO HS [facility] Last Admin: 03/25/17 21:36 Dose: 40 mg Furosemide (Lasix) 80 mg IVP Q12 [facility] Last Admin: 03/25/17 21:32 Dose: 80 mg Hydromorphone HCl (Dilaudid) 1 mg IVP Q6H PRN PRN Reason: Pain, moderate (4-7) Last Admin: 03/25/17 19:42 Dose: 1 mg Lactulose (Enulose) 10 gm PO DAILY [facility] Last Admin: 03/25/17 10:25 Dose: 10 gm Levalbuterol HCl (Xopenex) 0.63 mg IH [id number] [facility] Last Admin: 03/25/17 20:38 Dose: 0.63 mg Metoclopramide HCl (Reglan) 5 mg PO ACHS [facility] Last Admin: 03/25/17 21:35 Dose: 5 mg Metolazone (Zaroxolyn) 5 mg PO DAILY [facility] Last Admin: 03/25/17 10:32 Dose: 5 mg Metoprolol Tartrate (Lopressor) 12.5 mg PO DAILY [facility] Last Admin: 03/25/17 10:26 Dose: 12.5 mg Potassium Chloride (K-Dur 20 Meq Er Tab) 40 meq PO BID [facility] Last Admin: 03/25/17 17:15 Dose: 40 meq Spironolactone (Aldactone) 25 mg PO BID [facility] Last Admin: 03/25/17 17:15 Dose: 25 mg - Labs Labs: 03/23/17 05:20 03/23/17 05:20 PT 13.3 Seconds (9.9-11.8) H 03/21/17 05:15 INR 1.23 (0.93-1.08) H 03/21/17 05:15 APTT 28.4 Seconds (23.7-30.8) 03/19/17 02:55
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
== END 2017-03-29 21:23 | DRG 264 ==
LOC: ED 00:06 → ERH 04:40 → 2RNO 06:18 → OBSVTOIN 03-20 15:55 → 5RNO 03-22 15:26
PROVIDERS: ADMIT Internal Medicine; ATTEND Internal Medicine
PROC: 0HBNXZZ Excision of Left Foot Skin, External Approach (ICD-10-PCS; principal; 2017-03-21)
PROC: 0HBMXZZ Excision of Right Foot Skin, External Approach (ICD-10-PCS; 2017-03-21)
DX: I13.0 Hypertensive heart and chronic kidney disease with heart failure and stage 1 through stage 4 chronic kidney disease, or unspecified chronic kidney disease (principal); D61.818 Other pancytopenia; E44.0 Moderate protein-calorie malnutrition; S32.592A Other specified fracture of left pubis, initial encounter for closed fracture; K76.6 Portal hypertension; R18.8 Other ascites; I42.9 Cardiomyopathy, unspecified; I50.33 Acute on chronic diastolic (congestive) heart failure; L03.119 Cellulitis of unspecified part of limb; M48.54XA Collapsed vertebra, not elsewhere classified, thoracic region, initial encounter for fracture; M48.56XA Collapsed vertebra, not elsewhere classified, lumbar region, initial encounter for fracture; W07.XXXA Fall from chair, initial encounter; I27.2 Other secondary pulmonary hypertension; E11.22 Type 2 diabetes mellitus with diabetic chronic kidney disease; E83.42 Hypomagnesemia; J44.9 Chronic obstructive pulmonary disease, unspecified; E03.9 Hypothyroidism, unspecified; N18.9 Chronic kidney disease, unspecified; E78.5 Hyperlipidemia, unspecified; G47.33 Obstructive sleep apnea (adult) (pediatric); I25.10 Atherosclerotic heart disease of native coronary artery without angina pectoris; I35.0 Nonrheumatic aortic (valve) stenosis; I35.1 Nonrheumatic aortic (valve) insufficiency; I87.2 Venous insufficiency (chronic) (peripheral); I87.8 Other specified disorders of veins; K20.9 Esophagitis, unspecified; K29.70 Gastritis, unspecified, without bleeding; K29.80 Duodenitis without bleeding; K59.00 Constipation, unspecified; K74.69 Other cirrhosis of liver; M48.06 Spinal stenosis, lumbar region; Y92.009 Unspecified place in unspecified non-institutional (private) residence as the place of occurrence of the external cause; Z87.440 Personal history of urinary (tract) infections; Z96.652 Presence of left artificial knee joint; Z95.5 Presence of coronary angioplasty implant and graft; Z90.49 Acquired absence of other specified parts of digestive tract; Z87.891 Personal history of nicotine dependence; F32.89 Other specified depressive episodes; L85.9 Epidermal thickening, unspecified; D69.6 Thrombocytopenia, unspecified; D64.9 Anemia, unspecified

== ENCOUNTER 2017-03-29 21:11 | Inpatient (IN) | payer MEDICARE ==
[2017-03-30] MEDS: HYDROmorphone 0.5 mg/0.5 ml ISec IVP PRN ×3 (06:17→22:45)
[2017-03-30 07:16] VITALS: BMI 27.7
[2017-03-30 07:57] LABS: BASO # 0.03 K/mm3 (0.0-2.0); BASO % 0.8 % (0.0-3.0); EOS # 0.3 (0.0-0.7); EOS % 9.6 % (1.5-5.0); GRAN # 1.49 (1.4-6.5); GRAN % 42.1 % (50.0-68.0); HEMATOCRIT 32.5 % (36.0-48.0); LYMPH # 1.2 (1.2-3.4); LYMPH % 33.1 % (22.0-35.0); MEAN CELL VOLUME 92.9 fl (80.0-105.0); MEAN CORPUSCULAR HEMOGLOBIN 31.1 pg (25.0-35.0); MEAN CORPUSCULAR HGB CONC 33.5 g/dl (31.0-37.0); MEAN PLATELET VOLUME 9.4 fl (7.0-11.0); MONO # 0.5 (0.1-0.6); MONO % 14.4 % (1.0-6.0); RED CELL DISTRIBUTION WIDTH 14.7 % (11.5-14.5); WHITE BLOOD COUNT 3.5 10^3/ul (4.5-11.0)
[2017-03-30 08:08] LABS: BLOOD UREA NITROGEN 26 mg/dL (7-21); CARBON DIOXIDE 31 mmol/L (21-33); CHLORIDE 99 mmol/L (98-107); GFR AFRICAN-AMERICAN > 60; GLUCOSE,RANDOM 86 mg/dL (70-110); POTASSIUM 4.1 mmol/L (3.6-5.0); SODIUM 137 mmol/L (132-148)
--- NOTE | 2017-03-30 09:08 | CP.PCM.PN ---
Subjective - Date & Time of Evaluation Date of Evaluation: 03/30/17 Time of Evaluation: 09:06 - Subjective Subjective: Pt states left pelvic pain better. Tolerating passive ROM of hip without significant pain + tenderness of left pubis thigh soft NVI distally PT WBAT Objective - Vital Signs/Intake and Output Vital Signs (last 24 hours): Temp Pulse Resp BP Pulse Ox 89 18 03/30/17 01:21 03/30/17 01:21 - Medications Medications: Current Medications Acetaminophen (Tylenol 325mg Tab) 650 mg PO Q6H PRN PRN Reason: Pain, moderate (4-7) Betamethasone/Clotrimazole (Lotrisone) 0 gm TOP BID [facility] Calcium/Vitamin D (Oscal-D 250 Mg-125 Units Tab) 1 tab PO DAILY [facility] Docusate Sodium (Colace) 100 mg PO BID [facility] Famotidine (Pepcid) 40 mg PO HS [facility] Furosemide (Lasix) 80 mg PO DAILY [facility] Hydromorphone HCl (Dilaudid) 0.5 mg IVP Q6H PRN PRN Reason: Pain, severe (8-10) Last Admin: 03/30/17 06:17 Dose: 0.5 mg Lactulose (Enulose) 15 gm PO BID [facility] Levalbuterol HCl (Xopenex) 0.63 mg IH [id number] PRN PRN Reason: Shortness of Breath Magnesium Oxide (Mag-Ox) 400 mg PO DAILY [facility] Metoclopramide HCl (Reglan) 10 mg PO 0600,1130,1630,2200 [facility] Last Admin: 03/30/17 06:08 Dose: 10 mg Metolazone (Zaroxolyn) 5 mg PO DAILY [facility] Metoprolol Tartrate (Lopressor) 12.5 mg PO DAILY [facility] Potassium Chloride (K-Dur 20 Meq Er Tab) 40 meq PO BID [facility] Spironolactone (Aldactone) 25 mg PO BID [facility] - Labs Labs: 03/30/17 07:00 03/30/17 07:00
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
[2017-03-30] MEDS: Magnesium Oxide 400 mg Tab UD PO SCH (11:07)
[2017-03-30] MEDS: metOLazone 5 MG TAB PO SCH (11:07)
[2017-03-30] MEDS: Potassium Chloride 20 mEq ER Tab PO SCH ×2 (11:08→18:33)
[2017-03-30] MEDS: Calcium-Vit D 250 mg-125 Units Tab UD PO SCH (11:08)
[2017-03-30] MEDS: Clotrimazole/Betamethasone Cream(15 gm) TOP SCH ×2 (11:09→18:38)
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
--- NOTE | 2017-03-31 02:18 | CON ---
DATE: 03/30/2017 LOCATION: The patient is in room #320, bed #1. REASON FOR CONSULTATION: Congestive heart failure, severe aortic stenosis, coronary artery disease, deconditioning. HISTORY OF PRESENT ILLNESS: The patient is a 76-year-old female who was admitted to medical floor with shortness of breath and redness on the legs, was found to have cellulitis of the leg and CHF. The patient known to also have hypertension, COPD, chronic leg edema, diabetes, cirrhosis of liver, thrombocytopenia and history of coronary artery disease, status post stent insertion. The patient was treated with diuretics and antibiotic and she got improved. Now, she is admitted to transitional care unit for deconditioning and physical therapy. The patient denies any chest pain, shortness of breath or palpitation. PAST MEDICAL HISTORY: Significant for coronary artery disease, status post PTCA in 2008, severe aortic stenosis, hypertension, hyperlipidemia, chronic venostasis, chronic leg edema and cellulitis, COPD, cirrhosis of liver and thrombocytopenia. PREVIOUS CARDIAC WORKUP: The patient had cardiac catheterization and angioplasty in 2008, history of repeat echo on last admission which showed ejection fraction of 65% to 70%. Aortic stenosis is severe with valve area of 0.6, consistent with severe aortic stenosis, but by appearance on the echo looks like moderate to severe on 2D and diastolic dysfunction. The patient previously and also on this admission was offered TAVR, but the patient wants to treat medically. Family and sister were also part of the discussion. PERSONAL HISTORY: Denies smoking. Denies alcohol abuse. MEDICATIONS AT HOME: Metoprolol 12.5 mg, Lasix 40 mg daily, Aldactone 25 mg daily, sulfamethoxazole and spironolactone. REVIEW OF SYSTEMS: All the systems reviewed, positive mentioned in history, others are negative. ALLERGIES: THE PATIENT DENIES ANY ALLERGIES. PHYSICAL EXAMINATION VITAL SIGNS: Blood pressure 129/62, respirations 18, pulse 74 and temperature 98.4. HEENT: Head is normocephalic. Eyes: Pupils normal. Conjunctivae slightly pale. NECK: JVP low. Carotids equal. Thorax: AP diameter normal. LUNGS: Clear. CARDIOVASCULAR: S1 and S2. Ejection systolic murmur, grade III/. No rub. ABDOMEN: Soft. Bowel sounds normal. EXTREMITIES: The patient's edema has improved significantly; however, the patient still has some edema. Redness has also improved. LABORATORY DATA: WBC 3.5, hemoglobin 10.9, hematocrit 32.5 and platelet 98. Sodium 137, potassium 4.1, BUN 26, creatinine 0.8, calcium 10.0 and total bilirubin 2.3. EKG showed sinus rhythm, right bundle branch block, left axis deviation and left atrial enlargement. DIAGNOSES: Congestive heart failure; cellulitis of the leg; severe aortic stenosis; coronary artery disease, history of stent insertion; cirrhosis of liver; thrombocytopenia; preserved left ventricular systolic function; decompensated congestive heart failure, acute on chronic, stented; diastolic dysfunction as well as aortic stenosis, protein-calorie malnutrition, anemia and deconditioning. PLAN: Continue physical therapy. Spironolactone 25 b.i.d., potassium 40 mEq b.i.d., Lasix 80 mg p.o. daily, Zaroxolyn 5 mg p.o. daily, Pepcid 40 mg p.o. at bedtime, magnesium oxide 400 mg p.o. daily and metoprolol tartrate 12.5 mg p.o. daily. We will continue present therapy. Pablo Shah MD
--- NOTE | 2017-03-31 03:59 | CON ---
DATE: 03/30/2017 PULMONARY CONSULT REFERRING PHYSICIAN: Dr. Rg. REASON FOR CONSULT: Chronic obstructive lung disease, sleep apnea syndrome, multiple spine compression fractures, and left iliac fracture. HISTORY OF PRESENT ILLNESS: This is a 76-year-old female, well known to me from acute side of the hospital admission, noncompliant with followup, admitted to acute side of the hospital, has multiple medical problems including cardiac diastolic dysfunction, severe aortic stenosis, hypertension, chronic lung disease, recurrent lower extremity edema and cellulitis. Has cryptogenic cirrhosis, diabetes, history of thrombocytopenia, anemia, esophagitis, gastritis, came in with back pain, left leg pain, and increased leg swelling, found to have multiple compression fractures, also left hip fracture, seen by orthopedic, they recommended conservative treatment. She was started on high dose of 1:34 bronchodilator, slowly improved, presently admitted to TSCU for continued care, complaining about diarrhea, still having leg pain and leg swelling. PAST MEDICAL HISTORY: As per history of present illness. ALLERGIES: NONE KNOWN. SOCIAL HISTORY: Nonsmoker, nondrinker. FAMILY HISTORY: No significant cardiopulmonary disease reported. MEDICATIONS: She is on Aldactone 25 mg twice a day, Colace 100 mg twice a day, Dilaudid 0.5 mg q. 6 hours p.r.n., lactulose 15 g p.o. twice a day, was started potassium 20 mEq twice a day, Lasix 80 mg daily, metoprolol tartrate 12.5 mg daily, Lotrisone to affected area, magnesium oxide 400 mg daily, Pepcid 40 mg at bedtime, Reglan 10 mg 4 times a day, Tylenol p.r.n., Xopenex 0.63 mg q. 6 hours p.r.n., and Zaroxolyn 5 mg daily. REVIEW OF SYSTEMS: No headache, no rhinitis. Gets short of breath. No cough, no sputum production. No abdominal pain, still has leg swelling. PHYSICAL EXAMINATION: GENERAL: Sitting up in a chair. No acute distress. VITAL SIGNS: Temperature 98, heart rate is 71, respiratory rate is 20, blood pressure 129/62, and pulse ox 99% on room air. HEENT: Moist mucous membranes. Crowded airway. NECK: Supple. No JVD. LUNGS: Has diffuse scattered rhonchi. HEART: S1 and S2. Has a murmur. ABDOMEN: Soft and nontender. No organomegaly. EXTREMITIES: Does have edema. NEUROLOGIC: Awake and alert. Follows simple commands. LABORATORY DATA: Shows hemoglobin 10.9, hematocrit 32.5, WBC 3.5, platelet count is 98. Sodium 137, potassium 4.1, chloride 99, bicarbonate 31, BUN 26, creatinine 0.8, glucose 86, and calcium 10.0. Microbiology: Blood culture and urine culture, there is no growth. IMPRESSION AND PLAN: Cardiomyopathy with severe aortic stenosis, pulmonary hypertension, coronary artery disease, heart failure, chronic obstructive lung disease, sleep apnea syndrome, cryptogenic cirrhosis, portal hypertension, recurrent leg edema and cellulitis, history of esophagitis, gastritis, compression fracture of the multiple vertebrae, left pubic ramus fracture. We will discontinue lactulose, restart MiraLax, continue pain management, bronchodilator, diuretics, fall precaution, continue therapy. Thank you and we will follow with you. Pablo Cantor MD
[2017-03-31] MEDS: HYDROmorphone 0.5 mg/0.5 ml ISec IVP PRN ×3 (06:29→21:20)
[2017-03-31] MEDS: Magnesium Oxide 400 mg Tab UD PO SCH (10:55)
[2017-03-31] MEDS: Clotrimazole/Betamethasone Cream(15 gm) TOP SCH ×2 (10:56→17:29)
[2017-03-31] MEDS: Calcium-Vit D 250 mg-125 Units Tab UD PO SCH (10:58)
[2017-03-31] MEDS: metOLazone 5 MG TAB PO SCH (10:59)
[2017-03-31] MEDS: Potassium Chloride 20 mEq ER Tab PO SCH ×2 (11:00→17:29)
--- NOTE | 2017-03-31 17:45 | PN ---
DATE: 03/31/2017 LOCATION: Patient in room 320, bed 1. REASON FOR CONSULTATION: Followup congestive heart failure, severe aortic stenosis, coronary artery disease, deconditioning. SUBJECTIVE: The patient is sitting in chair without any chest pain, shortness of breath or palpitation. PHYSICAL EXAMINATION: VITAL SIGNS: Blood pressure 120/53, respirations 18, pulse 71, temperature 97.8. HEENT: Head is normocephalic. Eyes, pupils normal. Conjunctivae slightly pale. NECK: JVP low. Carotids equal. Thorax, AP diameter normal. LUNGS: Clear. CARDIOVASCULAR: S1 and S2. Ejection systolic murmur, grade III/. No rub. ABDOMEN: Soft. No tenderness, no organomegaly. Bowel sounds normal. EXTREMITIES: No clubbing. No cyanosis. LABORATORY DATA: WBC 3.5, hemoglobin 10.9, hematocrit 32.5, platelet 98. Sodium 137, potassium 4.1, BUN 26, creatinine 0.8, random glucose 86, calcium 10. DIAGNOSES: Congestive heart failure, cellulitis of the leg, severe aortic stenosis, coronary artery disease, history of stent insertion, cirrhosis of the liver, thrombocytopenia, preserved LV systolic function, decompensated congestive heart failure, acute diastolic dysfunction of LV as well as aortic stenosis, protein-calorie malnutrition, anemia and deconditioning. PLAN: Continue physical therapy. The patient on spironolactone 25 b.i.d., potassium 40 mEq b.i.d., Lasix 80 mg p.o. daily, Digoxin 5 mg p.o. daily, Pepcid 40 mg p.o. daily, magnesium oxide 400 mg p.o. daily, metoprolol tartrate 12.5 mg p.o. daily. If we increase the metoprolol dose, the patient gets bradycardia. We will monitor her heart rate and we will follow with you. Pablo Shah MD
--- NOTE | 2017-03-31 23:09 | PN ---
PULMONARY PROGRESS NOTE DATE: 03/31/2017 REFERRING PHYSICIAN: Dr. Rg SUBJECTIVE: The patient is out of bed to chair. Family and friends are at the bedside. Feels much better. Decreased cough. Decreased shortness of breath. No nausea and no vomiting. Still has a hip and low back pain. leg swelling. OBJECTIVE: GENERAL: In no acute distress. VITAL SIGNS: Temperature is 98, heart rate is 71, respiratory rate is 20, blood pressure 116/54 and pulse ox 95% on room air. HEENT: Moist mucous membranes. Carotid airway. Mallampati score is 4. NECK: Supple. No JVD. LUNGS: Few scattered rhonchi. HEART: S1 and S2. ABDOMEN: Soft and nontender. No organomegaly. EXTREMITIES: Does have edema, but decreasing. NEUROLOGIC: Awake and alert. Follow simple commands. MEDICATIONS: She is on Aldactone 25 mg twice a day, Colace 100 mg twice a day, Dilaudid 0.5 mg q. 6 h. p.r.n., potassium 40 mEq twice a day, Lasix 80 mg daily, metoprolol tartrate 12.5 mg daily, Lotrisone cream affected areas twice a day, magnesium oxide 400 mg daily, vitamin D 50,000 units daily, Pepcid 40 mg at bedtime, Tylenol p.r.n., Xopenex 0.63 inhale q. 6 hours, and Zaroxolyn 5 mg daily. LABORATORY DATA: No new lab is available since yesterday. ASSESSMENT AND PLAN: Cardiomyopathy with severe aortic stenosis, pulmonary hypertension, coronary artery disease, heart failure, chronic obstructive lung disease, sleep apnea syndrome, cryptogenic cirrhosis, portal hypertension, recurrent leg edema, cellulitis, history of esophagitis, gastritis, compression fracture of the multiple vertebrae, also have a left pubic ramus fracture. From a pulmonary point of view, she is doing much better. Continue diuretics, bronchodilators, afterload supervisor coating, gastric prophylaxis, fall precaution. Continue therapy. Follow up labs in the morning. Thank you and we will follow with you. Pablo Cantor MD
[2017-03-31] MEDS: Levalbuterol 0.63 MG/3 ML Inhal Soln UD IH PRN (23:44)
--- NOTE | 2017-04-01 04:21 | PN ---
DATE: 03/31/2017 SUBJECTIVE: Patient is in bed in no acute distress. She was seen early this morning in room 320. No fevers or chills. PHYSICAL EXAMINATION VITAL SIGNS: Temperature is 98, blood pressure is 112/70, respiratory rate is 16. HEENT: Unremarkable. NECK: Supple. LUNGS: Decreased breath sounds. HEART: Normal S1 and S2. ABDOMEN: Soft. LABORATORY DATA: Reveals a white count of 3.5, hemoglobin of 10, platelets of 98. Chemistries are noted. BUN of 26, creatinine of 0.8. ASSESSMENT AND PLAN: This is a 76-year-old female who is status post bilateral extremity skin and skin structure infection, nonpurulent, left greater than the right. No evidence of deep venous thrombosis. Currently, off of antibiotics. Afebrile with chronic T12 vertebral compression fracture and disk bulge at L4 and L5, hypertension, diabetes, history of right leg cellulitis, chronic obstructive lung disease, history of depression. Review of orders confirmed. Abram Benitez MD
[2017-04-01] MEDS: HYDROmorphone 0.5 mg/0.5 ml ISec IVP PRN ×2 (05:21→20:07)
[2017-04-01] MEDS: Levalbuterol 0.63 MG/3 ML Inhal Soln UD IH PRN ×2 (07:31→13:33)
[2017-04-01 07:52] LABS: ALKALINE PHOSPHATASE 75 U/L (38-133); ALT/SGPT 32 U/L (7-56); AST/SGOT 37 U/L (15-39); BILIRUBIN,TOTAL 2.1 mg/dL (0.2-1.3); BLOOD UREA NITROGEN 32 mg/dL (7-21); CALCIUM 9.6 mg/dL (8.4-10.5); CARBON DIOXIDE 29 mmol/L (21-33); CHLORIDE 98 mmol/L (98-107); GFR AFRICAN-AMERICAN > 60; GLUCOSE,RANDOM 90 mg/dL (70-110); POTASSIUM 4.1 mmol/L (3.6-5.0); SODIUM 134 mmol/L (132-148); TOTAL PROTEIN 5.5 g/dL (5.8-8.3)
[2017-04-01] MEDS: Calcium-Vit D 250 mg-125 Units Tab UD PO SCH (10:19)
[2017-04-01] MEDS: Potassium Chloride 20 mEq ER Tab PO SCH ×2 (10:19→17:57)
[2017-04-01] MEDS: Magnesium Oxide 400 mg Tab UD PO SCH (10:20)
[2017-04-01] MEDS: Clotrimazole/Betamethasone Cream(15 gm) TOP SCH ×2 (10:20→19:12)
[2017-04-01] MEDS: metOLazone 5 MG TAB PO SCH (10:21)
--- NOTE | 2017-04-01 13:26 | HP ---
CHIEF COMPLAINT: Back pain, shortness of breath, deconditioning. HISTORY OF PRESENT ILLNESS: Ms. Maria D Sullivan is a 76-year-old female, my private patient, has multiple medical problems, was admitted in [facility] on 03/19/2017 status post fall and shortness of breath and having left hip groin pain, complaining of worsening of bilateral lower extremity swelling and shortness of breath. We treated the patient. Abdomen and pelvis CAT scan done shows pelvic fracture. Back MRI done showed multiple levels compression fracture of the vertebrae. Consult with Dr. Castellanos. Orthopedic called, seen the patient, got physical therapy, improved, transferred to TCU for continuity of care and for physical therapy and pain management. PAST MEDICAL HISTORY: The patient has a history of diastolic dysfunction, severe aortic stenosis, hypertension, COPD, congestive heart failure, recurrent lower extremity edema, cellulitis, cryptogenic cirrhosis, diabetes mellitus, thrombocytopenia, anemia, esophagitis, gastritis. ALLERGIES: THE PATIENT IS NOT ALLERGIC TO ANY MEDICATION. SOCIAL HISTORY: No smoking. No drugs. No ethanol. FAMILY HISTORY: No significant cardiopulmonary disease reported. REVIEW OF SYSTEMS: The patient is seen and examined at the bedside, looking comfortable. No nausea, vomiting, or diarrhea. No hematuria or hematochezia. No swelling of the legs. No chest pain. No palpitation. No headache. No dizziness, but complaining about back pain. PHYSICAL EXAMINATION: VITAL SIGNS: Temperature 98.1, pulse 71, blood pressure 115/54 and respiratory rate 20. HEENT: Head normocephalic and atraumatic. Eyes; PERRLA. Extraocular movements intact. Conjunctivae clear. Nose is patent. Mucous membranes moist. NECK: Supple. No carotid bruit, JVD or thyromegaly. CHEST: Bilaterally symmetrical. HEART: S1 and S2 positive LUNGS: Clear to auscultation. ABDOMEN: Soft. Bowel sounds present. No organomegaly. EXTREMITIES: No edema. No cyanosis. NEUROLOGIC: The patient is awake and alert. Moving all 4 extremities. No focal deficits. MEDICATIONS: Reviewed by me. Aldactone, Colace, Dilaudid, Lasix, Lopressor, Cortisone, magnesium oxide, calcium, Pepcid, Tylenol, Xopenex and Zaroxolyn. LABORATORY DATA: White blood cells 3.5, hemoglobin 10.9, hematocrit 32.5, and platelets 98. Sodium 137, potassium 4.1, BUN 26 creatinine 0.8. ASSESSMENT AND PLAN: Ms. Maria D Sullivan is a 76-year-old lady with multiple medical problems, cardiomyopathy, severe aortic stenosis, pulmonary hypertension, chronic obstructive pulmonary disease, obstructive sleep apnea syndrome, coronary artery disease, heart failure, cryptogenic cirrhosis, portal hypertension, recurrent swelling of the legs, cellulitis, esophagitis, gastritis, duodenitis, compression fracture of multiple vertebrae, left pubic ramus fracture. Dr. Castellanos saw the patient and suggested passive physical therapy and the patient was informed to always walk with walker. Continue diuretics, bronchodilators, pain management and physical therapy. We will follow. Kristin Rg MD MTDJeromy
--- NOTE | 2017-04-01 13:48 | PN ---
DATE: 04/01/2017 LOCATION: The patient is in room 320, bed 1. REASON FOR CONSULTATION: Followup congestive heart failure, severe aortic stenosis, coronary artery disease, deconditioning. SUBJECTIVE: The patient sitting in bed without any chest pain, shortness of breath, or palpitation. PHYSICAL EXAMINATION: VITAL SIGNS: Blood pressure 92/47, respirations 18, pulse 74 and temperature 98.1. HEENT: Head is normocephalic. Eyes: Pupils are normal. Conjunctivae slightly pale. NECK: JVP low. Carotids equal. Thorax AP diameter normal. LUNGS: Clear. CARDIOVASCULAR: S1 and S2. Ejection systolic murmur. Garde 3/6. No rub. ABDOMEN: Soft. Bowel sounds normal. EXTREMITIES: Swelling legs has improved as comparing before. LABORATORY DATA: Done on 03/30 and the patient had chemistry done today. Sodium 134, potassium 4.1, BUN 32, creatinine 0.9, total bilirubin 2.1, AST and ALT normal. Total protein 5.5, albumin 2.8, calcium 9.6, glucose 90. DIAGNOSES: Congestive heart failure; severe aortic stenosis, coronary artery disease, history of stent insertion, cellulitis of leg which has improved; cirrhosis of liver; thrombocytopenia, preserved LV systolic function, diastolic dysfunction of LV as well as sever aortic stenosis, protein-calorie malnutrition, anemia and deconditioning. PLAN: The patient continued to get physical therapy and without any chest pain or shortness of breath. We will continue the patient's diuretics, metoprolol, potassium, spironolactone 25 b.i.d., 5 mg daily; Lasix 80 p.o. daily; metoprolol tartarate 12.5 mg p.o. daily; magnesium oxide 400 mg p.o. daily. Pablo Shah MD
--- NOTE | 2017-04-01 19:59 | PN ---
DATE: 04/01/2017 PULMONARY PROGRESS NOTE REFERRING PHYSICIAN: Dr. Rg. SUBJECTIVE: She is lying in the bed, head at 45 degrees. Overall, she is depressed and anxious. Friends are at bedside. Clinically, she feels much better. Cough is better. No shortness of breath. No nausea, no vomiting, no diarrhea. Decreased leg swelling. OBJECTIVE: GENERAL: In no acute distress. VITAL SIGNS: Temperature is 98, heart rate is 69, respiratory rate is 20, blood pressure 118/61, and pulse ox is 96% on room air. HEENT: Moist mucous membranes. Crowded airway. NECK: Supple. Supple. No JVD. LUNGS: Has fair airflow. HEART: S1 and S2. ABDOMEN: Soft and nontender. No organomegaly. EXTREMITIES: Decreased edema. NEUROLOGIC: Awake, alert, and follows simple commands MEDICATIONS: She is on Aldactone 25 mg twice a day, Colace 100 mg twice a day, Dilaudid 0.5 mg q.6 hours p.r.n., potassium 40 mEq twice a day, Lasix 80 mg daily, metoprolol tartrate 12.5 mg daily, Lotrisone to affected areas, magnesium oxide 400 mg daily, vitamin D and calcium one tablet daily, Pepcid 40 mg daily, Tylenol p.r.n., Xopenex q.6 hours p.r.n., Zaroxolyn 5 mg daily. LABORATORY DATA: Shows sodium 134, potassium 4.1, chloride 98, bicarbonate 29, BUN 32, creatinine 0.9, glucose 90, calcium 9.6, total bilirubin 2.1, AST 37, ALT 32, alkaline phosphatase is 75, albumin is 2.8. IMPRESSION AND PLAN: Cardiomyopathy with severe aortic stenosis, pulmonary hypertension, coronary artery disease, heart failure, chronic obstructive lung disease, sleep apnea syndrome, cryptogenic cirrhosis, portal hypertension, recurrent leg edema, cellulitis, history of esophagitis, gastritis, compression fracture of the multiple vertebrae, also has a left pubic ramus fracture. From a pulmonary point of view, she is doing okay. Continue diuretics, bronchodilators, our of bed to chair, physical therapy, fall precaution. Thank you and we will follow with you. Pablo Cantor MD
--- NOTE | 2017-04-02 00:06 | PN ---
DATE: 04/01/2017 SUBJECTIVE: The patient is in bed in no acute distress, nontoxic who was seen earlier in room 320. PHYSICAL EXAMINATION: VITAL SIGNS: Temperature is 98, blood pressure is 100/60, respiratory rate of 20 and heart rate is 96. HEENT: Unremarkable. NECK: Supple. LUNGS: Decreased breath sounds. HEART: Normal S1 and S2. ABDOMEN: Soft and nontender. LABORATORY DATA: Reveals a white count of 3.5, hemoglobin of 10 and platelets of 98. Chemistries reveals a BUN of 32 and creatinine of 0.9. ASSESSMENT AND PLAN: This is a 76-year-old female status post bilateral extremity skin and skin soft tissue infection, non-purulent, left greater than the right. No evidence of deep vein thrombosis, currently off of antibiotics. Afebrile and review of the medications reveals the patient to be off of antibiotics and Dr. Shah's note is reviewed from today. Dr. Rg's note from history and physical examination from yesterday is reviewed. The patient is at risk for developing nosocomial infection. We will follow with you. Abram Benitez MD
[2017-04-02] MEDS: Levalbuterol 0.63 MG/3 ML Inhal Soln UD IH PRN ×2 (07:25→13:36)
[2017-04-02] MEDS: HYDROmorphone 0.5 mg/0.5 ml ISec IVP PRN ×3 (09:33→23:24)
[2017-04-02] MEDS: Clotrimazole/Betamethasone Cream(15 gm) TOP SCH ×2 (09:37→18:19)
[2017-04-02] MEDS: Magnesium Oxide 400 mg Tab UD PO SCH (09:38)
[2017-04-02] MEDS: metOLazone 5 MG TAB PO SCH (09:39)
[2017-04-02] MEDS: Calcium-Vit D 250 mg-125 Units Tab UD PO SCH (09:39)
[2017-04-02] MEDS: Potassium Chloride 20 mEq ER Tab PO SCH ×2 (09:40→18:17)
--- NOTE | 2017-04-02 10:25 | PN ---
DATE: SUBJECTIVE: The patient is seen and examined on the bedside, sitting on the chair feeling depressed. Denies nausea, vomiting, or diarrhea. No hematuria or hematochezia. No swelling of the legs. No chest pain. No palpitations. No headache. No dizziness. PHYSICAL EXAMINATION: VITAL SIGNS: Temperature 98.1, heart rate 69, respiratory rate 20, blood pressure 120/60, and pulse oximetry 96% on room air. HEENT: Normocephalic and atraumatic. Eyes, PERRLA. Extraocular muscles intact. Conjunctivae clear. Nose patent. Mucous membranes are moist. NECK: Supple. No carotid bruit or thyromegaly. CHEST: Bilaterally symmetrical. HEART: S1 and S2 positive. LUNGS: Clear to auscultation. ABDOMEN: Soft. Bowel sounds positive. No organomegaly. EXTREMITIES: No edema. No cyanosis. NEUROLOGIC: The patient is awake and alert. Moving all 4 extremities. No focal deficits. LABORATORY DATA: Sodium 135, potassium 4.1, BUN 32, creatinine 0.9, glucose 90, calcium 9.6, total bilirubin 2.1, AST 37, and ALT 32. MEDICATIONS: Aldactone, Colace, Dilaudid, potassium, Lasix, metoprolol, Lotrisone, magnesium, vitamin D, calcium, Pepcid, Tylenol, Xopenex, and Zaroxolyn. ASSESSMENT AND PLAN: Ms. Laurie Killian is a 76-year-old lady with severe cardiomyopathy, severe aortic stenosis, pulmonary hypertension, coronary artery disease, congestive heart failure, chronic obstructive lung disease, sleep apnea syndrome, cryptogenic cirrhosis, portal hypertension, pancytopenia, cellulitis of the extremities, esophagitis, gastritis, compression fracture of the multiple vertebrae, has a left pubic ramus fracture that side having pain in the back. The patient's improvement is better. The patient is starting physical therapy. According to patient, she is depressed. I talked to her. I will call psych consult. The patient will follow up. Kristin Rg MD
--- NOTE | 2017-04-02 11:27 | PN ---
DATE: 04/02/2017 LOCATION: The patient is in room 320, bed 1. REASON FOR CONSULTATION: Followup congestive heart failure, severe aortic stenosis, coronary artery disease, deconditioning. SUBJECTIVE: Patient lying flat in bed without chest pain, shortness of breath, palpitation. She is complaining of musculoskeletal pain on the left shoulder and left lower chest posteriorly, which has local tenderness. PHYSICAL EXAMINATION VITAL SIGNS: Blood pressure 118/61, respirations 20, pulse 69, temperature 98.1. HEENT: Head is normocephalic. Eyes: Pupils normal. Conjunctiva slightly pale. NECK: JVP low. Carotids equal. Thorax AP diameter normal. LUNGS: Clear. CARDIOVASCULAR: S1 and S2. Ejection systolic murmur grade 3/6. ABDOMEN: Soft, nontender. No organomegaly. EXTREMITIES: No clubbing, cyanosis or edema. Leg has much improved. LABORATORY DATA: Done on 04/01/2017 reported in progress note yesterday. DIAGNOSES: Congestive heart failure; severe aortic stenosis; coronary artery disease; history of stent insertion; cellulitis of the leg, which has improved; cirrhosis of liver; thrombocytopenia; preserved LV systolic function; diastolic dysfunction of left ventricle as well as severe aortic stenosis; congestive heart failure; protein-calorie malnutrition; anemia and deconditioning; musculoskeletal pain. ASSESSMENT AND PLAN: Patient to continue spironolactone 25 mg b.i.d., potassium 40 b.i.d., metformin 80 p.o. daily, Lopressor 12.5 mg daily, magnesium oxide 400 mg p.o. daily, Pepcid 40 mg p.o. daily, Xopenex nebulizer therapy, Zaroxolyn 5 mg daily. We will continue present therapy. We will follow with you. Patient to continue physical therapy. Pablo Shah MD
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
--- NOTE | 2017-04-02 18:37 | PN ---
DATE: 04/02/2017 SUBJECTIVE: The patient is in bed, in no acute distress. Nontoxic. PHYSICAL EXAMINATION: VITAL SIGNS: Temperature is 98, blood pressure is 119/60, respiratory rate of 18. HEENT: Unremarkable. LABORATORY DATA: Reveals a white count of 3.5, hemoglobin of 10, platelets of 98. BUN of 32 and creatinine of 0.9. Review of orders reveals the patient to be on no antibiotics. ASSESSMENT AND PLAN: This is a 76-year-old female with status post bilateral extremity skin and skin soft tissue infection, non-purulent, left greater than the right, with no evidence of DVT. Currently off of antibiotics and afebrile. We will follow closely with you. Abram Benitez MD
[2017-04-02] MEDS: oxyCODONE 10 mg ER Tab (oxyCONTIN) PO SCH (21:49)
--- NOTE | 2017-04-03 01:59 | PN ---
DATE: 04/02/2017 PULMONARY PROGRESS NOTE REFERRING PHYSICIAN: Dr. Rg. SUBJECTIVE: The patient is out of bed to chair. Feels much better today. Decreased back and hip pain. No headache, no rhinitis, no nausea, no vomiting, no diarrhea, leg pain or leg swelling. PHYSICAL EXAMINATION GENERAL: In no distress. VITAL SIGNS: Temperature is 98, heart rate is 87, respiratory rate is 20, blood pressure 119/56, pulse oximetry 96% on room air. HEENT: Moist mucous membranes. Small oral cavity. Crowded airway. NECK: Supple. No JVD. LUNGS: Has fair airflow with rhonchi. HEART: S1 and S2. ABDOMEN: Soft and nontender. No organomegaly. EXTREMITIES: Does have some edema, but much better than before. NEUROLOGIC: Awake and alert. Follows simple commands. MEDICATIONS: She is on Aldactone 25 mg twice a day, Colace 100 mg twice a day, Dilaudid 0.5 mg q.6 h. p.r.n., potassium 20 mEq twice a day, Lasix 80 mg daily, metoprolol tartrate 12.5 mg daily, Lotrisone cream to affected area twice a day, magnesium oxide 400 mg daily, OxyContin extended release 10 mg twice a day, Pepcid is 40 mg at bedtime, Tylenol p.r.n. basis, Xopenex inhaled q.6 h., Zaroxolyn 5 mg daily, and Zofran 4 mg q.6 h. p.r.n. LABORATORY DATA: Reviewed. IMPRESSION AND PLAN: Cardiomyopathy with severe aortic stenosis, pulmonary hypertension, coronary artery disease, heart failure, chronic obstructive lung disease, sleep apnea syndrome, cryptogenic cirrhosis, portal hypertension, recurrent leg edema, cellulitis, esophagitis, history of compression fracture of the multiple vertebrae, also fracture of the pubic ramus on the left. Pulmonary point of view, doing okay. Keep head elevated 45 degrees, sleep apnea precaution, p.o. and inhaled bronchodilator, out of bed to chair, physical therapy. Thank you and we will follow with you. Pablo Cantor MD
--- NOTE | 2017-04-03 03:14 | PN ---
DATE: 04/02/2017 SUBJECTIVE: The patient is a 76 years old female. The patient is seen and examined on 04/02/2017 on the bedside, eating her dinner in the dining room. Feeling better. No nausea, vomiting, or diarrhea. No hematuria or hematochezia. No swelling of the legs. No chest pain. No palpitations. No headache. No dizziness. PHYSICAL EXAMINATION: VITAL SIGNS: Temperature 98.6, pulse 80, blood pressure 118/61, and respiratory rate 20. HEENT: Head, normocephalic and atraumatic. Eyes, PERRLA. Extraocular muscles intact. Conjunctivae clear. Nose patent. Mucous membranes are moist. NECK: Supple. No carotid bruit, JVD or thyromegaly. CHEST: Bilaterally symmetrical. HEART: S1 and S2 positive. LUNGS: Clear to auscultation. ABDOMEN: Soft. Bowel sounds positive. No organomegaly. EXTREMITIES: No edema. No cyanosis. NEUROLOGIC: The patient is awake and alert. Moving all four extremities. No focal deficits. LABORATORY DATA: We do not have any lab today, but I reviewed old labs. MEDICATIONS: Reviewed by me. ASSESSMENT AND PLAN: The patient is a 76 years old lady with congestive heart failure, severe aortic stenosis, coronary artery disease, history of status post stent insertion, cellulitis of the leg, chronic obstructive pulmonary disease, obstructive sleep apnea syndrome, history of pancytopenia, cirrhosis of the liver, now getting physical therapy, gastrointestinal and deep venous thrombosis prophylaxis. Continue spironolactone, potassium, metformin, Lopressor, and Pepcid. We will follow up. Kristin Rg MD
[2017-04-03] MEDS: Levalbuterol 0.63 MG/3 ML Inhal Soln UD IH PRN ×2 (07:30→14:10)
--- NOTE | 2017-04-03 09:47 | CON ---
DATE: 04/02/2017 HISTORY OF PRESENT ILLNESS: This patient was seen and evaluated earlier today and discussed with the ICU staff. The patient is feeling comfortable with regular bowel movement. PHYSICAL EXAMINATION: VITAL SIGNS: Stable. ABDOMEN: Soft. There is no mass, no tenderness. LUNGS: Bilateral air entry present. EXTREMITIES: No cyanosis and no clubbing. NEUROLOGIC: Alert and oriented. LABORATORY DATA: Labs reviewed. IMPRESSION: This 76-year-old patient with chronic liver disease, cirrhosis, cryptogenic, admitted with constipation and pelvic fracture, on rehab now. The patient has a history of chronic constipation. The patient is now placed on lactulose, on titrating dose. Continue the present management. Stewart Freitas MD
[2017-04-03] MEDS: HYDROmorphone 0.5 mg/0.5 ml ISec IVP PRN ×2 (10:18→16:26)
[2017-04-03] MEDS: Potassium Chloride 20 mEq ER Tab PO SCH ×2 (10:21→17:27)
[2017-04-03] MEDS: oxyCODONE 10 mg ER Tab (oxyCONTIN) PO SCH ×2 (10:21→21:24)
[2017-04-03] MEDS: Magnesium Oxide 400 mg Tab UD PO SCH (10:23)
[2017-04-03] MEDS: Calcium-Vit D 250 mg-125 Units Tab UD PO SCH (10:23)
[2017-04-03] MEDS: Clotrimazole/Betamethasone Cream(15 gm) TOP SCH ×2 (10:24→17:28)
[2017-04-03] MEDS: metOLazone 5 MG TAB PO SCH (10:28)
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
--- NOTE | 2017-04-03 19:39 | PN ---
DATE: 04/03/2017 SUBJECTIVE: The patient is in bed in no acute distress. PHYSICAL EXAMINATION: VITAL SIGNS: Temperature is 98, blood pressure is 106/50, respiratory rate of 16. HEENT: Unremarkable. NECK: Supple. LUNGS: Decreased breath sounds. HEART: Normal S1 and S2. ABDOMEN: Soft, nontender. LABORATORY DATA: Review of laboratory examination reveals a white count of 3.5, hemoglobin of 10, BUN of 32, creatinine 0.9. ASSESSMENT AND PLAN: A 76-year-old female status post bilateral lower extremity skin and skin soft tissue infection on purulent, left greater than right. No evidence of deep venous thrombosis. Currently off of antibiotics. I will closely follow with you. Review of orders reveals no antibiotics. Abram Benitez MD
--- NOTE | 2017-04-03 22:12 | PN ---
DATE: 04/03/2017 LOCATION: The patient in room 320, bed 1. REASON FOR CONSULTATION: Followup congestive heart failure, severe aortic stenosis, coronary artery disease, deconditioning. SUBJECTIVE: The patient denies chest pain, shortness of breath, or palpitations. The patient's swelling of the legs are also improving. The patient on moving has some pain on the left axillary line, which is some of her musculoskeletal type of pain. PHYSICAL EXAMINATION: VITAL SIGNS: Blood pressure 113/56, respirations 20, pulse 70, temperature 97.8. HEENT: Head is normocephalic. Eyes: Pupils are normal. Conjunctivae slightly pale. NECK: JVP low. Carotids are equal. THORAX: AP diameter normal. LUNGS: Clear. CARDIOVASCULAR: S1 and S2. Ejection systolic murmur grade 3/6, no rub. ABDOMEN: Soft. No tenderness. No organomegaly. EXTREMITIES: No clubbing. No cyanosis. LABORATORY DATA: WBC 3.5, hemoglobin 10.9, hematocrit 32.5, and platelets 98. Sodium 134, potassium 4.1, BUN 32, creatinine 0.9, total bilirubin 2.1. AST and ALT are normal. DIAGNOSES: Congestive heart failure; severe aortic stenosis; coronary artery disease; history of stent insertion; cellulitis of the leg, which has improved; cirrhosis of the liver; thrombocytopenia; preserved LV systolic function; diastolic dysfunction of left ventricle as well as severe aortic stenosis causing congestive heart failure, protein-calorie malnutrition, anemia, deconditioning, musculoskeletal pain. PLAN: Plan is to continue diuretics, spironolactone 25 b.i.d., potassium 40 mEq b.i.d., furosemide 80 mg daily, Zaroxolyn 5 mg p.o. daily, magnesium oxide 400 mg p.o. daily, metoprolol tartrate 12.5 mg p.o. daily. We will repeat CBC, SMA-7 and magnesium phosphorus in the morning. We will follow with you. Pablo Shah MD
--- NOTE | 2017-04-03 23:31 | PN ---
DATE: 04/03/2017 PULMONARY PROGRESS NOTE REFERRING PHYSICIAN: Dr. Rg. SUBJECTIVE: Patient is able to ambulate, feels better. Decreased cough, decreased shortness of breath, no chest pain, decreased leg swelling. PHYSICAL EXAMINATION GENERAL: No acute distress. VITAL SIGNS: Temperature is 98, heart rate 62, respiratory rate is 20, blood pressure 106/53, pulse ox 96% on room air. HEENT: Moist mucous membrane. Crowded airway. NECK: Supple. No JVD. LUNGS: Has fair airflow with few rhonchi. HEART: S1 and S2. ABDOMEN: Soft and nontender. No organomegaly. EXTREMITIES: Does have a trace edema. NEUROLOGIC: Awake and alert. Follows simple commands. MEDICATIONS: She is on Aldactone 25 mg twice a day, Colace 100 mg twice a day, Dilaudid 0.5 mg q. 6 hours p.r.n., potassium 20 mEq twice a day, Lasix 40 mg daily, metoprolol tartrate 12.5 mg daily, Lotrisone cream to affected area twice a day, magnesium oxide 400 mg daily, vitamin D 1 tablet daily, OxyContin extended release 10 mg twice a day, Pepcid is 40 mg at bedtime, Tylenol p.r.n., Xopenex inhaled q. 6 hours, Zaroxolyn 5 mg daily, and Zofran p.r.n. basis. LABORATORY DATA: Reviewed and no new lab is available. IMPRESSION AND PLAN: Cardiomyopathy with severe aortic stenosis, pulmonary hypertension, coronary artery disease, heart failure, chronic obstructive lung disease, sleep apnea syndrome, cryptogenic cirrhosis, portal hypertension, history of leg swelling, recurrent cellulitis, esophagitis, history of compression fracture of the multiple vertebrae, also having fracture of the pubic ramus of the left side. Pulmonary point of view, she is doing okay. Continue bronchodilator. 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 Thank you and we will follow with you. Pablo Cantor MD
[2017-04-04] MEDS: HYDROmorphone 0.5 mg/0.5 ml ISec IVP PRN ×3 (01:40→14:30)
--- NOTE | 2017-04-04 02:05 | PN ---
DATE: SUBJECTIVE: The patient is a 76-year-old female. Patient is seen and examined at bedside. Looking comfortable. No nausea, vomiting, or diarrhea. No hematuria or hematochezia. No chest pain. No palpitation. He is little bit fatigued and tired. Swelling of the legs is getting getter. PHYSICAL EXAMINATION VITAL SIGNS: Blood pressure 123/56, respiratory rate 20, pulse 70, temperature 97.6. HEENT: Head, normocephalic and atraumatic. Eyes, PERRLA. Extraocular muscles intact. Conjunctivae clear. Nose patent. Mucous membranes are moist. NECK: Supple. No carotid bruit or thyromegaly. CHEST: Bilaterally symmetrical. HEART: S1 and S2 positive. LUNGS: Clear to auscultation. ABDOMEN: Soft. Bowel sounds positive. No organomegaly. EXTREMITIES: No edema. No cyanosis. NEUROLOGIC: The patient is awake and alert. Moving all four extremities. No focal deficits. LABORATORY DATA: White blood cells 3.5, hemoglobin 10.9, hematocrit 32.5, platelets 98. Sodium 135, potassium 4.1, BUN 32, creatinine 0.9. MEDICATIONS: Aldactone, Colace, Dilaudid, K-Dur, Lasix, Lopressor, Lotrisone, magnesium oxide, calcium with vitamin D, magnesium oxide. ASSESSMENT AND PLAN: Ms. Laurie Killian is a 76-year-old female status post bilateral lower extremity skin and skin soft tissue infection, purulent left greater than the right. No evidence of deep venous thrombosis. Currently, off of antibiotics. Seen by Dr. Shah and psychiatrist, Dr. Tracey. Patient has history of congestive heart failure, severe aortic stenosis, coronary artery disease, history of stent insertion, thrombocytopenia, preserved left ventricular systolic function, diastolic dysfunction of left ventricle, severe aortic stenosis, congestive heart failure, protein-calorie malnutrition, anemia and deconditioning, musculoskeletal pain, history of fall, history of pubic fracture. We will continue spironolactone, potassium, furosemide, Zaroxolyn. Physical therapy, out of bed. We will follow up. Kristin Rg MD
[2017-04-04 07:16] LABS: BASO # 0.03 K/mm3 (0.0-2.0); BASO % 0.8 % (0.0-3.0); EOS # 0.3 (0.0-0.7); EOS % 7.2 % (1.5-5.0); GRAN # 1.64 (1.4-6.5); GRAN % 45.3 % (50.0-68.0); HEMATOCRIT 32.1 % (36.0-48.0); LYMPH # 1.2 (1.2-3.4); LYMPH % 33.7 % (22.0-35.0); MEAN CORPUSCULAR HEMOGLOBIN 30.9 pg (25.0-35.0); MEAN CORPUSCULAR HGB CONC 33.6 g/dl (31.0-37.0); MEAN PLATELET VOLUME 9.5 fl (7.0-11.0); MONO # 0.5 (0.1-0.6); RED CELL DISTRIBUTION WIDTH 14.4 % (11.5-14.5); WHITE BLOOD COUNT 3.6 10^3/ul (4.5-11.0)
[2017-04-04] MEDS: Levalbuterol 0.63 MG/3 ML Inhal Soln UD IH PRN (07:22)
[2017-04-04 07:33] LABS: BLOOD UREA NITROGEN 28 mg/dL (7-21); CALCIUM 9.7 mg/dL (8.4-10.5); CARBON DIOXIDE 31 mmol/L (21-33); CHLORIDE 98 mmol/L (98-107); GFR AFRICAN-AMERICAN > 60; GLUCOSE,RANDOM 108 mg/dL (70-110); MAGNESIUM 1.8 mg/dL (1.7-2.2); PHOSPHOROUS 3.3 mg/dL (2.5-4.5); POTASSIUM 3.9 mmol/L (3.6-5.0); SODIUM 136 mmol/L (132-148)
[2017-04-04] MEDS: Potassium Chloride 20 mEq ER Tab PO SCH ×2 (08:03→17:37)
[2017-04-04] MEDS: Calcium-Vit D 250 mg-125 Units Tab UD PO SCH (09:55)
[2017-04-04] MEDS: metOLazone 5 MG TAB PO SCH (09:55)
[2017-04-04] MEDS: Magnesium Oxide 400 mg Tab UD PO SCH (09:55)
[2017-04-04] MEDS: oxyCODONE 10 mg ER Tab (oxyCONTIN) PO SCH ×2 (09:57→21:33)
[2017-04-04] MEDS: Clotrimazole/Betamethasone Cream(15 gm) TOP SCH ×2 (10:37→17:37)
--- NOTE | 2017-04-04 10:59 | CP.PCM.PN ---
Subjective - Date & Time of Evaluation Date of Evaluation: 04/04/17 Time of Evaluation: 09:20 - Subjective Subjective: Seen and examined at the bedside this morning, no acute overnight events reported. The chart was reviewed. Patient back pain slightly better, her last bowel movement was on Monday. She is not on lactulose she had loose bowel movement before. Denies any nausea, vomiting, or abdominal pain. No reports of overt GI bleed. Patient eating what she can but no real appetite. Objective - Vital Signs/Intake and Output Vital Signs (last 24 hours): Temp Pulse Resp BP Pulse Ox 98.0 F 96 H 20 100/45 L 96 04/04/17 06:48 04/04/17 09:54 04/04/17 06:48 04/04/17 09:53 04/04/17 06:48 Intake and Output: 04/04/17 04/04/17 06:59 18:59 Intake Total 2080 Output Total 2100 Balance -20 - Medications Medications: Current Medications Acetaminophen (Tylenol 325mg Tab) 650 mg PO Q6H PRN PRN Reason: Pain, moderate (4-7) Last Admin: 04/01/17 00:40 Dose: 650 mg Betamethasone/Clotrimazole (Lotrisone) 0 gm TOP BID [facility] Last Admin: 04/03/17 17:28 Dose: 1 appl Calcium/Vitamin D (Oscal-D 250 Mg-125 Units Tab) 1 tab PO DAILY [facility] Last Admin: 04/04/17 09:55 Dose: 1 tab Docusate Sodium (Colace) 100 mg PO BID [facility] Last Admin: 04/04/17 09:51 Dose: 100 mg Famotidine (Pepcid) 40 mg PO HS [facility] Last Admin: 04/03/17 21:25 Dose: 40 mg Furosemide (Lasix) 80 mg PO DAILY [facility] Last Admin: 04/04/17 09:53 Dose: 80 mg Hydromorphone HCl (Dilaudid) 0.5 mg IVP Q6H PRN PRN Reason: Pain, severe (8-10) Last Admin: 04/04/17 08:08 Dose: 0.5 mg Levalbuterol HCl (Xopenex) 0.63 mg IH [id number] PRN PRN Reason: Shortness of Breath Last Admin: 04/04/17 07:22 Dose: 0.63 mg Magnesium Oxide (Mag-Ox) 400 mg PO DAILY [facility] Last Admin: 04/04/17 09:55 Dose: 400 mg Metolazone (Zaroxolyn) 5 mg PO DAILY [facility] Last Admin: 04/04/17 09:55 Dose: 5 mg Metoprolol Tartrate (Lopressor) 12.5 mg PO DAILY [facility] Last Admin: 04/04/17 09:54 Dose: 12.5 mg Ondansetron HCl (Zofran Tab) 4 mg PO Q6H PRN; Protocol PRN Reason: Nausea/Vomiting Oxycodone HCl (Oxycontin Extended Release Tab) 10 mg PO Q12 [facility] PRN Reason: Protocol Stop: 04/05/17 22:01 Last Admin: 04/04/17 09:57 Dose: 10 mg Potassium Chloride (K-Dur 20 Meq Er Tab) 40 meq PO BID [facility] Last Admin: 04/04/17 08:03 Dose: 40 meq Spironolactone (Aldactone) 25 mg PO BID [facility] Last Admin: 04/04/17 09:51 Dose: 25 mg - Labs Labs: 04/04/17 06:35 04/04/17 06:35 - Constitutional Appears: No Acute Distress - Head Exam Head Exam: NORMOCEPHALIC - Eye Exam Eye Exam: Normal appearance. absent: Scleral icterus - ENT Exam ENT Exam: Mucous Membranes Moist - Neck Exam Neck Exam: Normal Inspection - Respiratory Exam Respiratory Exam: Decreased Breath Sounds, NORMAL BREATHING PATTERN. absent: Rales, Wheezes, Respiratory Distress - Cardiovascular Exam Cardiovascular Exam: +S1 - GI/Abdominal Exam GI & Abdominal Exam: Soft, Normal Bowel Sounds. absent: Distended, Guarding, Tenderness, Rebound - Extremities Exam Extremities Exam: Normal Capillary Refill. 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 Freitas.
--- NOTE | 2017-04-04 14:30 | PN ---
DATE: 04/04/2017 REASON FOR THE CONSULTATION AND FOLLOWUP: History of congestive heart failure, history of severe aortic stenosis, coronary artery disease, deconditioning of the body. SUBJECTIVE: The patient denies any chest pain, shortness of breath, or any palpitation. Wants to have a cataract surgery as outpatient in 2 weeks. OBJECTIVE: GENERAL: Lying on the bed, watching television, not in apparent distress. Examination as follows: VITAL SIGNS: Temperature afebrile, heart rate 96, blood pressure 105/45. HEENT: PERRLA intact. NECK: Supple. No carotid bruit. No thyromegaly. CHEST: Clear to auscultation. HEART: S1 and S2, regular. ABDOMEN: Soft. EXTREMITIES: Clubbing and cyanosis negative. LABORATORY DATA: WBC 3.6, hemoglobin 10.8, hematocrit 32.1, platelet count 94. Chemistry shows sodium 135, potassium 3.9, chloride 97, carbon dioxide 31, anion gap of 11, BUN 23, creatinine 0.9. Total bilirubin 2.1, AST 37, ALT 32, alkaline phosphatase 75, total protein 5.5, albumin 2.8, albumin/globulin ratio 1. IMPRESSION: A 76-year-old female with past medical history of congestive heart failure, significant coronary artery disease, status post percutaneous transluminal coronary angioplasty in April 2009, history of cirrhosis, thrombocytopenia, ascites, severe aortic stenosis, refused transcatheter aortic valve replacement, protein-calorie malnutrition, deconditioning of body, musculoskeletal chest pain, no evidence of myocardial infarction, [id number] protein-calorie malnutrition present on admission secondary to cirrhosis. RECOMMENDATION: Continue gentle diuretics, continue spironolactone, supplement potassium as needed, continue diuretics. Continue low-dose beta-kirby. The patient since refused transcatheter aortic valve replacement, any surgical intervention is high risk because of aortic stenosis, but since the procedure of cataract is a low-risk procedure, the patient has been cleared to go for a cataract surgery as outpatient. Discussed with the patient. Discussed with Dr. Rg. We will follow with you. The patient will go under local anesthesia for this procedure. Thank you Dr. Rg for providing me the opportunity in taking care of Maria D Sullivan. Mohammad Eagle, MD
--- NOTE | 2017-04-04 15:10 | PN ---
DATE: SUBJECTIVE: The patient was followed up. Today, the patient complains that she feels weak. The patient said that she has a good night sleep. The patient said that she worries for the physical therapy. The patient said that she is concerned about her living situation. The patient is worried that her son who is the owner/operator of the building where she lives is going to sell the house. The patient also said that she does not want to invest any of her money into the apartment if she needs to be moved out. The patient's last admission describes her open discussion for assisted living or senior housing living or alf facility. The patient was not willing to do so. At present moment, this advertising copywriter thinks that the patient is to be evaluated by protective services social worker and case management. Discussed with them today in detail. cue worker will talk to the patient later on. Going back to the patient's presentation, the patient appears to be talkative, lot of detail, circumstantial, but no tangentiality. Overall, the patient is very pleasant, like to beat herself, seems to have normal aging. PHYSICAL EXAMINATION: VITAL SIGNS: Seems to be stable. Temperature 98.0, pulse 73, blood pressure 100/45, respirations 20 and oxygen saturation is 96. MEDICATIONS: Reviewed. Tylenol, Lotrisone, Colace, Pepcid, Lasix, Dilaudid, Xopenex, magnesium oxide, metolazone, Lopressor, ondansetron, oxycodone, potassium chloride and Aldactone. LABORATORY DATA: Reviewed. Most recent was from today. MENTAL STATUS EXAMINATION: As this advertising copywriter described above, the patient is talkative,fair personal hygiene. Good eye contact. Speech was over inclusive. Mood described "I feel little bit weak today". Affect was constricted, but reactive, at times cheerful. Thought process was circumstantial. Thought content, the patient denied visual, auditory or tactile hallucinations, denied paranoid ideations. The patient denied thoughts of harming herself or others. The patient denied intent or plan. The patient does not present to be psychotic or suicidal. Insight and judgment are fair. Impulses are well controlled. Collaterals were obtained from the nursing staff. The patient is calm, cooperative, socially appropriate, takes her medications. No signs of agitation or aggression. IMPRESSION: Rule out adjustment disorder, rule out mood disorder due to general medical condition and rule out normal aging. PLAN: Continue current management. Discussed with the protective services social worker in detail. Family needs to be involved. The patient also needs to be evaluated by protective services social worker. The patient reported that she feels better after talking to this advertising copywriter and supportive therapy and empathic listening was provided. Thank you very much for letting me to participate in care of your patient. The patient does not want to be on any psychotropic medications. Mercedez Tracey MD
--- NOTE | 2017-04-04 20:43 | PN ---
DATE: SUBJECTIVE: The patient is examined at the bedside, looking comfortable, sitting on the chair, getting physical therapy, had bowel movement. No nausea or vomiting. No headache or dizziness. No chest pain. No palpitation. Appetite is appropriate. PHYSICAL EXAMINATION: VITAL SIGNS: Temperature is 98.0, pulse 96, respiratory rate 20, blood pressure 100/45, pulse oximetry 96%. HEENT: Head is normocephalic and atraumatic. Eyes: PERRLA. Extraocular muscles intact. Conjunctivae clear. Nose is patent. Mucous membrane moist. NECK: Supple. No carotid bruit, JVD, or thyromegaly. CHEST: Bilaterally symmetrical. HEART: S1 and S2 positive. LUNGS: Clear to auscultation. ABDOMEN: Soft. Bowel sounds positive. No organomegaly. EXTREMITIES: No edema. No cyanosis. NEUROLOGIC: The patient is awake and alert. Moving all 4 extremities. No focal deficit. MEDICATIONS: Tylenol, Lotrisone, calcium with vitamin D, Colace, Pepcid, Lasix, Dilaudid for pain, Xopenex, magnesium oxide, Lopressor, Zofran, oxycodone, potassium. LABORATORY DATA: Sodium 136, potassium 3.9, BUN 20, creatinine 0.9, glucose 108. ASSESSMENT AND PLAN: Mr. 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 Getting lactulose and Colace. Heart healthy diet. To continue Pepcid. History of diabetes mellitus but controlled with diet, on Aldactone and Lasix. We will get electrolytes. Getting Dilaudid and oxycodone and physical therapy. We will follow up. Kristin Rg MD
--- NOTE | 2017-04-04 22:42 | PN ---
DATE: 04/04/2017 SUBJECTIVE: The patient is in bed in no acute distress, nontoxic. PHYSICAL EXAMINATION: VITAL SIGNS: Temperature is 98, blood pressure is 120/70 and respiratory rate is 16. HEENT: Unremarkable. NECK: Supple. LUNGS: Has decreased breath sounds. HEART: Normal S1 and S2. ABDOMEN: Soft and nontender. LABORATORY DATA: Reveals white count of 3.6, hemoglobin is 10.8 and platelets of 94. Examination of chemistry reveals the patient has BUN of 28 and creatinine of 0.9. Microbiology is noted. ASSESSMENT AND PLAN: A 76-year-old female status post bilateral lower extremity skin and skin soft tissue infection, purulent left greater than right. No evidence of deep vein thrombosis. Currently of off antibiotics. Afebrile. She has risk for developing nosocomial infections and review of medications confirms the patient to be of off antibiotics. Abram Benitez MD
[2017-04-04] MEDS: Oxycodone/Acetaminophen 5/325 mg Tab PO PRN (23:42)
--- NOTE | 2017-04-05 02:05 | PN ---
PULMONARY PROGRESS NOTE DATE: 04/04/2017 SUBJECTIVE: She is ambulating with the help of a walker, feels better. Decreased back and hip pain. No headache. No rhinitis. No nausea. No vomiting. No diarrhea. Decreased leg swelling. PHYSICAL EXAMINATION: GENERAL: In no acute distress. VITAL SIGNS: Temperature is 98, heart rate is 69, respiratory rate is 25, blood pressure 105/52, pulse ox 100% on room air. HEENT: Moist mucus membrane. No carotid bruit. NECK: Supple. No JVD. LUNGS: Fair airflow with few rhonchi. HEART: S1 and S2. ABDOMEN: Soft, nontender. No organomegaly. EXTREMITIES: Does have edema. NEUROLOGIC: Awake and alert. Follow simple command. MEDICATIONS: She is on Aldactone 25 mg twice a day, Colace 100 mg twice a day, potassium 40 mEq twice a day, Lasix 80 g daily, metoprolol tartrate 12.5 mg daily, Lotrisone cream affected area twice a day, magnesium oxide 4000 mg daily, OxyContin extended release 10 mg twice a day, Pepcid 40 mg at bedtime, Percocet 5/325 one tablet q.6h. p.r.n., Tylenol p.r.n., Xopenex inhale q.6h., Zaroxolyn 5 mg daily, and Zofran p.r.n. basis. LABORATORY DATA: Shows hemoglobin 10,8, hematocrit is 32.1, WBC is 3.6, platelet count is 94. Sodium 136, potassium 3.9, chloride 98, bicarbonate 31, BUN 28, creatinine 0.9, glucose 108, calcium 9.7, phosphorus 3.3, magnesium is 1.8. IMPRESSION AND PLAN: Cardiomyopathy with severe aortic stenosis, pulmonary hypertension, coronary artery disease, heart failure, chronic obstructive lung disease, sleep apnea syndrome, cryptogenic cirrhosis, portal hypertension, history of leg swelling, recurrent cellulitis, esophagitis, history of compression fracture with the multiple vertebra, also has fracture of the pubic ramus, ADL dysfunction. We will continue inhale bronchodilator, after we will reduce her diuretics. Gastric prophylaxis. to lower extremity. Fall precaution. We will follow with you. Pablo Cantor MD
[2017-04-05] MEDS: Levalbuterol 0.63 MG/3 ML Inhal Soln UD IH PRN ×2 (07:11→13:21)
[2017-04-05] MEDS: Potassium Chloride 20 mEq ER Tab PO SCH ×2 (08:14→17:22)
--- NOTE | 2017-04-05 08:46 | CP.PCM.PCO ---
Addendum Addendum: 04/05/17 08:46 no acute issues, will f/u on pt every other day
[2017-04-05] MEDS: Magnesium Oxide 400 mg Tab UD PO SCH (10:44)
[2017-04-05] MEDS: metOLazone 5 MG TAB PO SCH (10:44)
[2017-04-05] MEDS: Clotrimazole/Betamethasone Cream(15 gm) TOP SCH ×2 (10:46→17:23)
[2017-04-05] MEDS: Calcium-Vit D 250 mg-125 Units Tab UD PO SCH (10:55)
--- NOTE | 2017-04-05 12:09 | PN ---
DATE: 04/05/2017 REASON FOR THE CONSULTATION AND FOLLOWUP: History of congestive heart failure, history of severe aortic stenosis, coronary artery disease, deconditioning of the body. SUBJECTIVE: Denies any chest pain, shortness of breath, or any palpitation. Wants to have a cataract surgery as outpatient in 2 weeks. OBJECTIVE: GENERAL: Lying flat on the bed, not in apparent distress. Blood pressure in the morning was 90 as she drank the water after that the repeat blood pressure was 100. EXAMINATION FOLLOWS: VITAL SIGNS: Temperature afebrile, heart rate 69, blood pressure 105/52. HEENT: PERRLA. Extraocular muscles intact. NECK: Supple. No carotid bruit. No thyromegaly. CHEST: Clear to auscultation. HEART: S1 and S2, regular. ABDOMEN: Soft. EXTREMITIES: Clubbing and cyanosis negative. LABORATORY DATA: As of 04/04/2017, WBC 3.6, hemoglobin 10.8, hematocrit 32.1, platelet count 94. Chemistry shows sodium 135, potassium 3.9, chloride 97, carbon dioxide 31, anion gap of 11, BUN 23, creatinine 0.9. IMPRESSION: A 76-year-old female with past medical history significant for coronary artery disease, status post percutaneous transluminal coronary angioplasty of RCA in 04/2009, history of cryptogenic cirrhosis, ascites, chronic leg edema, severe aortic stenosis, opted for medical treatment; does not want transcatheter aortic valve replacement, refused transcatheter aortic valve replacement, protein-calorie malnutrition, deconditioning of the body, musculoskeletal chest pain, no evidence of myocardial infarction, [id number] protein-calorie malnutrition present on the admission secondary to cirrhosis. RECOMMENDATION: Continue gentle diuretics, continue spironolactone, supplement potassium as needed. Continue low-dose beta-kirby and discuss with Dr. Rg yesterday as with the patient. We will clear the patient for moderate to high risk for cataract surgery, though cataract surgery itself is very low risk procedure and since no evidence of acute decom-congestive heart failure, arrhythmia, or chest pain . We will follow with you. Repeat the blood workup continue spironolactone, continue Lasix, supplement magnesium. As mentioned above, we will clear the patient is moderate to high risk for cataract surgery as mentioned. Cataract surgery is very low risk procedure. The patient is moderate to high risk because of the underlying comorbidity. Thank you Dr. Rg for providing me the opportunity in taking care of the patient. Pablo Guillermo MD
[2017-04-05] MEDS: oxyCODONE 10 mg ER Tab (oxyCONTIN) PO SCH ×2 (12:22→21:37)
--- NOTE | 2017-04-05 14:58 | PN ---
DATE: 04/05/2017 PULMONARY PROGRESS NOTE REFERRING PHYSICIAN: Dr. Rg. SUBJECTIVE: She is out of bed to chair. Feels much better. No headache. No rhinitis. Short of breath on exertion. No nausea. No vomiting. No diarrhea. Decreased leg swelling. OBJECTIVE GENERAL: In no acute distress. VITAL SIGNS: Temperature is 98, heart rate is 62, respiratory rate is 18, blood pressure 117/60, pulse ox 100% on nasal cannula. HEENT: Moist mucus membrane. Crowded airway. Mallampati score is 4. NECK: Supple. No JVD. LUNGS: Fair airflow with few rhonchi. HEART: S1 and S2. Has a murmur. ABDOMEN: Soft, nontender. No organomegaly. EXTREMITIES: Does have edema but much improved. NEUROLOGIC: Awake and alert. Follow simple command. MEDICATIONS: She is on Aldactone 25 mg twice a day, Colace 100 mg twice a day, potassium 40 mEq twice a day, Lasix 80 mg daily, metoprolol tartrate 12.5 mg daily, Lotrisone twice a day, magnesium oxide 400 mg daily, OxyContin extended release 10 mg q.12 hour, Pepcid 40 mg at bedtime, Percocet 5/325 mg one tablet q.6 hour p.r.n., Tylenol p.r.n., Xopenex 0.63 q.6 hour, Zaroxolyn 5 mg daily, and Zofran p.r.n. basis. LABORATORY DATA: Reviewed. No other lab is available since yesterday. IMPRESSION AND PLAN: Cardiomyopathy with severe aortic stenosis, pulmonary hypertension, coronary artery disease, heart failure, chronic obstructive lung disease, sleep apnea syndrome, cryptogenic cirrhosis, portal hypertension, recurrent leg swelling and cellulitis, esophagitis, compression fracture of the vertebra, also has a fracture of the pubic ramus, ADL dysfunction, has a cataract. From a pulmonary point of view doing well. Pulmonary status is optimized. If need cataract surgery, of course he is having severe aortic stenosis needs close monitoring, also the component of sleep apnea syndrome, if sedating need a close cardiopulmonary monitoring while sedated. Fall precaution. Continue diuretics. Supplement potassium. Continue bronchodilator. We will follow with you. Pablo Cantor MD [facility] # [id number]
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
--- NOTE | 2017-04-06 02:40 | PN ---
The patient is a 76-year-old female. SUBJECTIVE: The patient was seen and examined on the bedside, sitting on the chair, feeling better. No nausea, vomiting or diarrhea. No hematuria or hematochezia. No chest pain. No palpitation. Swelling of the leg is better. PHYSICAL EXAMINATION VITAL SIGNS: Temperature 98, heart rate 62, respiratory rate 18, blood pressure 120/60 and pulse oximetry 100% on nasal cannula. HEENT: Head: Normocephalic and atraumatic. Eyes: PERRLA. Extraocular muscles intact. Conjunctivae are clear. Nose is patent. Mucous membrane moist. NECK: Supple. No carotid bruit. No JVD. No thyromegaly. LUNGS: Fair airflow with rhonchi. HEART: S1, S2 positive. ABDOMEN: Soft. Nontender. No organomegaly. EXTREMITIES: No edema. No cyanosis. NEUROLOGICAL: The patient is awake, alert and follows simple commands. MEDICATIONS: The patient is on Aldactone, Colace, potassium, Lasix, metoprolol, Lotrisone, magnesium, OxyContin, Pepcid, Percocet, Tylenol and Xopenex. LABORATORY DATA: We do not have recent lab today, but I reviewed old labs. ASSESSMENT AND PLAN: The patient is a 76-year-old lady with cardiomyopathy, severe aortic stenosis, pulmonary hypertension, coronary artery disease, status post cardiac stenting, heart failure, chronic obstructive lung disease, sleep apnea syndrome, cryptogenic cirrhosis, portal hypertension, recurrent leg swelling and cellulitis, esophagitis and gastritis, compression fracture of the vertebrae, now has pubic ramus fracture of left side , getting pain management and physical therapy, is not able to do all activities of daily living. Gastrointestinal and deep vein thrombosis prophylaxis. Get labs. Kristin Rg MD [facility]
[2017-04-06] MEDS: Potassium Chloride 20 mEq ER Tab PO SCH ×2 (08:07→17:04)
[2017-04-06 08:18] LABS: BLOOD UREA NITROGEN 27 mg/dL (7-21); CALCIUM 9.7 mg/dL (8.4-10.5); CARBON DIOXIDE 29 mmol/L (21-33); CHLORIDE 98 mmol/L (98-107); GFR AFRICAN-AMERICAN > 60; GLUCOSE,RANDOM 93 mg/dL (70-110); MAGNESIUM 1.9 mg/dL (1.7-2.2); PHOSPHOROUS 3.1 mg/dL (2.5-4.5); SODIUM 136 mmol/L (132-148)
[2017-04-06] MEDS: Clotrimazole/Betamethasone Cream(15 gm) TOP SCH ×2 (09:37→17:05)
[2017-04-06] MEDS: Magnesium Oxide 400 mg Tab UD PO SCH (09:37)
[2017-04-06] MEDS: Calcium-Vit D 250 mg-125 Units Tab UD PO SCH (09:38)
[2017-04-06] MEDS: oxyCODONE 20 mg ER Tab (oxyCONTIN) PO SCH ×2 (09:40→21:20)
[2017-04-06] MEDS: metOLazone 5 MG TAB PO SCH (09:41)
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
--- NOTE | 2017-04-06 16:32 | CP.PCM.PCO ---
Physician Communication Note - Physician Communication Note Physician Communication Note: pt was seen today, denied si/hi, denied depression , will sign off
--- NOTE | 2017-04-06 19:56 | PN ---
LOCATION: The patient in room 319, bed 1. REASON FOR CONSULTATION AND FOLLOWUP: History of congestive heart failure, severe aortic stenosis, coronary artery disease, deconditioning. SUBJECTIVE: The patient is sitting in chair. Denies any shortness of breath, chest pain or palpitation. PHYSICAL EXAMINATION: VITAL SIGNS: Blood pressure 102/41, respirations 18, pulse 77, temperature 98. HEENT: Head is normocephalic. Eyes, pupils are normal. Conjunctivae was slightly pale. NECK: JVP low. Carotids are equal. Thorax, AP diameter normal. LUNGS: Clear. CARDIOVASCULAR: Ejection systolic murmur grade 3/6. ABDOMEN: Soft. Bowel sounds normal. EXTREMITIES: Edema has reduced as compared to before. LABORATORY DATA: Sodium 136, potassium 4.0, BUN 27, creatinine 1.0. Calcium, phosphorus and magnesium normal. Total bilirubin 2.1. Total protein 5.5, albumin 2.8. DIAGNOSES: Coronary artery disease, status post angioplasty of RCA in 04/2009, history of cryptogenic cirrhosis, ascites, chronic leg edema, severe aortic stenosis. The patient in the past was offered TAVR, but she opted for medical treatment. Protein-calorie malnutrition and deconditioning. Mild to moderate protein-calorie malnutrition present at admission secondary to cirrhosis. PLAN: The patient wants to do cataract surgery outpatient, so the patient can go for as moderate to high risk. I will continue low dose beta kirby. Cataract surgery usually is a very low risk procedure, so the patient will be moderate to high risk because of underlying condition. In the meantime, we will continue the present therapy and will continue to follow up. Pablo Shah MD
--- NOTE | 2017-04-07 01:10 | PN ---
DATE: 04/06/2017 REFERRING PHYSICIAN: Dr. Rg. SUBJECTIVE: She is ambulating on the floor, feels better. No headache, no rhinitis. No nausea, no vomiting, no diarrhea. Decreased leg swelling. OBJECTIVE: GENERAL: In no acute distress. VITAL SIGNS: Temperature is 98, heart rate is 90, respiratory rate is 20, blood pressure 134/75, pulse ox 100% on room air. HEENT: Moist mucus membrane. No oral thrush. NECK: Supple. No JVD. LUNGS: Fair airflow with few rhonchi. HEART: S1 and S2 with murmur. ABDOMEN: Soft, nontender. No organomegaly. EXTREMITIES: Has decreased edema. NEUROLOGIC: Awake and alert. Follow simple command. MEDICATIONS: She is on Aldactone 25 mg twice a day, Colace 100 mg twice a day, potassium 20 mEq daily, Lasix 80 mg daily, metoprolol tartrate 12.5 mg daily, Lotrisone to affected area twice a day, magnesium oxide 400 mg daily, vitamin D daily, OxyContin extended release 20 mg q. 12 hours, Pepcid 40 mg daily, Percocet 5/325 one tab q. 6 hours p.r.n., Tylenol p.r.n., Xopenex 0.63 q. 6 hours p.r.n., Zaroxolyn 5 mg daily. LABORATORY DATA: Reviewed as noted. Sodium 136, potassium 4.0, chloride 98, bicarbonate 29, BUN 27, creatinine 1.0, glucose 93, calcium 9.7, phosphorus 3.1, magnesium 1.9. IMPRESSION AND PLAN: Cardiomyopathy with severe aortic stenosis, pulmonary hypertension, coronary artery disease, heart failure, chronic obstructive lung disease, sleep apnea syndrome, cryptogenic cirrhosis, portal hypertension, recurrent leg swelling, history of cellulitis, history of esophagitis, compression fracture of vertebra, also fracture of the pubic ramus, activities of daily living dysfunction. 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 Pulmonary status is optimized for discharge planning. Fall precaution. We will follow with you. Pablo Cantor MD [facility] # [id number]
[2017-04-07] MEDS: Oxycodone/Acetaminophen 5/325 mg Tab PO PRN ×2 (04:53→10:19)
[2017-04-07] MEDS: Levalbuterol 0.63 MG/3 ML Inhal Soln UD IH PRN (07:31)
[2017-04-07] MEDS: Potassium Chloride 20 mEq ER Tab PO SCH (07:50)
--- NOTE | 2017-04-07 09:34 | PN ---
DATE: 04/07/2017 SUBJECTIVE: The patient is in bed, in no acute distress. Nontoxic. She is doing well and she is eager to go home today. No fevers or chills. PHYSICAL EXAMINATION VITAL SIGNS: Temperature is 98, blood pressure is 120/70, respiratory rate is 16. HEENT: Unremarkable. NECK: Supple. LUNGS: Decreased breath sounds. HEART EXAM: Normal S1 and S2. ABDOMEN EXAMINATION: Soft, nontender. LABORATORY EXAMINATION: Reveals a white count of 3.6, hemoglobin of 10, platelets of 94. BUN of 27, creatinine of 1.0. Microbiology is noted. ASSESSMENT AND PLAN: A 76-year-old female with bilateral lower extremity skin and skin soft tissue infection, nonpurulent, left greater than right. No evidence of deep vein thrombosis on ultrasound. Chronic venous stasis improving, status post treatment; chronic T12 vertebral compression fracture and disc bulge; hypertension; diabetes; history of right leg cellulitis; chronic obstructive pulmonary disease and coronary artery disease. Currently off of antibiotics. We will follow closely with you. Abram Benitez MD
[2017-04-07] MEDS: oxyCODONE 20 mg ER Tab (oxyCONTIN) PO SCH (10:19)
[2017-04-07] MEDS: Magnesium Oxide 400 mg Tab UD PO SCH (10:24)
[2017-04-07] MEDS: metOLazone 5 MG TAB PO SCH (10:25)
[2017-04-07] MEDS: Calcium-Vit D 250 mg-125 Units Tab UD PO SCH (10:25)
[2017-04-07 10:34] VITALS: BP 121/43; PULSE 75; RESP 14; TEMP 98; O2SAT 97
--- NOTE | 2017-04-07 10:39 | CP.PCM.PN ---
Subjective - Date & Time of Evaluation Date of Evaluation: 04/07/17 Time of Evaluation: 09:00 - Subjective Subjective: seen and examined at the bedside this morning, patient was steadily ambulating back from the bathroom. She denied having a bowel movement, she just urinated. Her last bowel movement she noted was 2 days ago, denies nausea, vomiting, or abdominal pain. No reports of overt GI bleed. Tolerating oral intake. No acute overnight events reported. Objective - Vital Signs/Intake and Output Vital Signs (last 24 hours): Temp Pulse Resp BP Pulse Ox 98.3 F 90 20 136/60 95 04/07/17 06:00 04/07/17 07:49 04/07/17 06:00 04/07/17 07:49 04/07/17 06:00 - Medications Medications: Current Medications Acetaminophen (Tylenol 325mg Tab) 650 mg PO Q6H PRN PRN Reason: Pain, moderate (4-7) Last Admin: 04/05/17 12:22 Dose: 650 mg Betamethasone/Clotrimazole (Lotrisone) 0 gm TOP BID [facility] Last Admin: 04/06/17 17:05 Dose: 1 appl Calcium/Vitamin D (Oscal-D 250 Mg-125 Units Tab) 1 tab PO DAILY [facility] Last Admin: 04/06/17 09:38 Dose: 1 tab Docusate Sodium (Colace) 100 mg PO BID [facility] Last Admin: 04/06/17 17:03 Dose: 100 mg Famotidine (Pepcid) 40 mg PO HS [facility] Last Admin: 04/06/17 21:20 Dose: Not Given Furosemide (Lasix) 80 mg PO DAILY [facility] Last Admin: 04/06/17 13:55 Dose: Not Given Levalbuterol HCl (Xopenex) 0.63 mg IH [id number] PRN PRN Reason: Shortness of Breath Last Admin: 04/07/17 07:31 Dose: 0.63 mg Magnesium Oxide (Mag-Ox) 400 mg PO DAILY [facility] Last Admin: 04/06/17 09:37 Dose: 400 mg Metolazone (Zaroxolyn) 5 mg PO DAILY [facility] Last Admin: 04/06/17 09:41 Dose: 5 mg Metoprolol Tartrate (Lopressor) 12.5 mg PO 0800 [facility] Last Admin: 04/07/17 07:49 Dose: 12.5 mg Oxycodone HCl (Oxycontin Extended Release Tab) 20 mg PO Q12 [facility] Last Admin: 04/06/17 21:20 Dose: 20 mg Oxycodone/Acetaminophen (Percocet 5/325 Mg Tab) 1 tab PO Q6H PRN; Protocol PRN Reason: Pain, severe (8-10) Stop: 04/07/17 17:55 Last Admin: 04/07/17 04:53 Dose: 1 tab Potassium Chloride (K-Dur 20 Meq Er Tab) 40 meq PO 0800,1800 [facility] Last Admin: 04/07/17 07:50 Dose: 40 meq Spironolactone (Aldactone) 25 mg PO BID [facility] Last Admin: 04/06/17 17:03 Dose: 25 mg - Labs Labs: 04/04/17 06:35 04/06/17 07:30 - Constitutional Appears: No Acute Distress - Head Exam Head Exam: NORMAL INSPECTION - Eye Exam Eye Exam: Normal appearance. absent: Scleral icterus - ENT Exam ENT Exam: Mucous Membranes Moist - Respiratory Exam Respiratory Exam: Decreased Breath Sounds, NORMAL BREATHING PATTERN. absent: Rales, Wheezes, Respiratory Distress - Cardiovascular Exam Cardiovascular Exam: +S1, +S2 - GI/Abdominal Exam GI & Abdominal Exam: Soft, Normal Bowel Sounds. absent: Guarding, Tenderness, Rebound - Extremities Exam Extremities Exam: Normal Capillary Refill, Pedal Edema (improved). 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 Chavez who is covering Dr. Freitas.
[2017-04-07] MEDS: Clotrimazole/Betamethasone Cream(15 gm) TOP SCH (11:00)
[2017-04-07] MEDS ORDERED: Oxycodone/Acetaminophen 5/325 mg Tab PO ONE (12:28)
--- NOTE | 2017-04-07 19:34 | PN ---
DATE: 04/07/2017 REASON FOR THE CONSULTATION AND FOLLOWUP: History of congestive heart failure, severe aortic stenosis, coronary and deconditioning of the body. SUBJECTIVE: The patient denies chest pain, shortness of breath, or any palpitation. OBJECTIVE: GENERAL: Sitting in the chair. Wanted to go home, not in apparent distress. VITAL SIGNS: As follows, temperature afebrile, heart rate 76, blood pressure was 121/43. HEENT: PERRLA. Extraocular muscles intact. NECK: Supple. No carotid bruit. No thyromegaly. CHEST: Clear to auscultation. HEART: S1 and S2, regular. ABDOMEN: Soft. EXTREMITIES: Clubbing and cyanosis negative. LABORATORY DATA: Blood workup as follows: WBC , hemoglobin 10.8, hematocrit 32.1, platelet count 94. Chemistries: Sodium 135, potassium 4, chloride 98, carbon dioxide 29, anion gap of 13, BUN 23, creatinine 1.0. IMPRESSION: A 76-year-old female with past medical history significant for coronary artery disease, status post percutaneous transluminal coronary angioplasty for RCA on 04/2009, history of cryptogenic cirrhosis, ascites, chronic leg edema, severe aortic stenosis, was offered transcatheter aortic valve replacement, the patient refused transcatheter aortic valve replacement, protein-calorie malnutrition, deconditioning of the body, [id number] protein calorie present since admission secondary to cirrhosis. PLAN: The patient wants cataract surgery as outpatient, so she can go, moderate to high risk. The cataract is very low risk procedure. Though high risk for any intervention but since the procedure itself is very low risk, the patient is clear to go for moderate to high risk. Discussed with Dr. Rg and discussed with the patient. We will follow with you. Thank you Dr. Rg for providing me the opportunity in taking care of the patient. Pablo Guillermo MD
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
--- NOTE | 2017-04-10 19:36 | CP.PCM.PN ---
Subjective - Date & Time of Evaluation Date of Evaluation: 04/07/17 Time of Evaluation: 11:00 - Subjective Subjective: Complaining of leg pain. No fever, no nausea. C/O fatigue. No events overnight. Ambulating with cane. Objective - Vital Signs/Intake and Output Vital Signs (last 24 hours): Temp Pulse Resp BP Pulse Ox 98 F 75 14 121/43 L 97 04/07/17 10:33 04/07/17 10:33 04/07/17 10:33 04/07/17 10:33 04/07/17 10:33 - Labs Labs: 04/04/17 06:35 04/06/17 07:30 - Constitutional Appears: Well, No Acute Distress - Head Exam Head Exam: ATRAUMATIC, NORMAL INSPECTION, NORMOCEPHALIC - Eye Exam Eye Exam: Normal appearance Pupil Exam: NORMAL ACCOMODATION - ENT Exam ENT Exam: Mucous Membranes Moist, Normal Exam - Neck Exam Neck Exam: Normal Inspection - Respiratory Exam Respiratory Exam: Clear to Ausculation Bilateral, NORMAL BREATHING PATTERN - Cardiovascular Exam Cardiovascular Exam: REGULAR RHYTHM, +S1, +S2 - Neurological Exam Neurological Exam: Alert, Awake, Normal Gait, Oriented x3 - Psychiatric Exam Psychiatric exam: Normal Affect, Normal Mood - Skin Skin Exam: Normal Color, Warm Assessment and Plan - Assessment and Plan (Free Text) Assessment: 1. Right leg cellulitis - improved. Off antibiotics now. ID Dr. Silva following. 2. Pancytopenia : does not require blood products today. Will continue to monitor blood counts. might be due to bone marrow supression due to infection/antibiotics or myelodysplasia. 3. CKD stage III : renal stable. 4. Gait : ambulating with support. 5. discharge today. prescriptions given to patient. Discussed with the staff Nurse.
== END 2017-04-07 15:17 | disposition home or self-care (01) | DRG 535 ==
LOC: TRCU 21:11
PROVIDERS: ADMIT Internal Medicine; ATTEND Internal Medicine
PROC: F07Z9FZ Gait Training/Functional Ambulation Treatment using Assistive, Adaptive, Supportive or Protective Equipment (ICD-10-PCS; principal; 2017-03-30)
PROC: F07M6ZZ Therapeutic Exercise Treatment of Musculoskeletal System - Whole Body (ICD-10-PCS; 2017-03-30)
PROC: F08Z4ZZ Home Management Treatment (ICD-10-PCS; 2017-03-30)
DX: S32.592A Other specified fracture of left pubis, initial encounter for closed fracture (principal); I50.31 Acute diastolic (congestive) heart failure; D61.818 Other pancytopenia; E44.0 Moderate protein-calorie malnutrition; I42.9 Cardiomyopathy, unspecified; E11.22 Type 2 diabetes mellitus with diabetic chronic kidney disease; N18.3 Chronic kidney disease, stage 3 (moderate); K76.6 Portal hypertension; I13.0 Hypertensive heart and chronic kidney disease with heart failure and stage 1 through stage 4 chronic kidney disease, or unspecified chronic kidney disease; L03.115 Cellulitis of right lower limb; M48.50XA Collapsed vertebra, not elsewhere classified, site unspecified, initial encounter for fracture; L03.116 Cellulitis of left lower limb; J44.1 Chronic obstructive pulmonary disease with (acute) exacerbation; I27.2 Other secondary pulmonary hypertension; S80.10XA Contusion of unspecified lower leg, initial encounter; S32.302A Unspecified fracture of left ilium, initial encounter for closed fracture; R04.0 Epistaxis; E78.5 Hyperlipidemia, unspecified; G47.33 Obstructive sleep apnea (adult) (pediatric); H26.9 Unspecified cataract; I25.10 Atherosclerotic heart disease of native coronary artery without angina pectoris; I35.0 Nonrheumatic aortic (valve) stenosis; I87.8 Other specified disorders of veins; K20.9 Esophagitis, unspecified; K29.70 Gastritis, unspecified, without bleeding; K29.80 Duodenitis without bleeding; K59.00 Constipation, unspecified; K74.69 Other cirrhosis of liver; R29.6 Repeated falls; Z87.440 Personal history of urinary (tract) infections; Z87.891 Personal history of nicotine dependence; Z90.49 Acquired absence of other specified parts of digestive tract; Z91.19 Patient's noncompliance with other medical treatment and regimen; Z91.81 History of falling; Z95.2 Presence of prosthetic heart valve; Z95.5 Presence of coronary angioplasty implant and graft; R26.81 Unsteadiness on feet; M54.5 Low back pain

== ENCOUNTER 2017-05-03 22:06 | Inpatient (IN) | payer MEDICARE ==
[2017-05-03 22:12] VITALS: BMI 25.4
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
[2017-05-04 00:19] LABS: BASO # 0.07 K/mm3 (0.0-2.0); BASO % 0.9 % (0.0-3.0); EOS # 0.8 (0.0-0.7); EOS % 9.6 % (1.5-5.0); GRAN # 4.45 (1.4-6.5); HEMATOCRIT 34.1 % (36.0-48.0); LYMPH # 1.7 (1.2-3.4); LYMPH % 21.2 % (22.0-35.0); MEAN CELL VOLUME 91.2 fl (80.0-105.0); MEAN CORPUSCULAR HEMOGLOBIN 31.8 pg (25.0-35.0); MEAN CORPUSCULAR HGB CONC 34.9 g/dl (31.0-37.0); MEAN PLATELET VOLUME 8.4 fl (7.0-11.0); MONO # 0.9 (0.1-0.6); MONO % 11.3 % (1.0-6.0); RED CELL DISTRIBUTION WIDTH 14.6 % (11.5-14.5); WHITE BLOOD COUNT 7.8 10^3/ul (4.5-11.0)
[2017-05-04 00:30] LABS: ALKALINE PHOSPHATASE 132 U/L (38-126); ALT/SGPT 24 U/L (7-56); AST/SGOT 34 U/L (14-36); BILIRUBIN,TOTAL 3.4 mg/dL (0.2-1.3); BLOOD UREA NITROGEN 20 mg/dL (7-21); CALCIUM 9.3 mg/dL (8.4-10.5); CARBON DIOXIDE 33 mmol/L (21-33); CHLORIDE 97 mmol/L (98-107); GFR AFRICAN-AMERICAN > 60; GLUCOSE,RANDOM 103 mg/dL (70-110); SODIUM 136 mmol/L (132-148); TOTAL PROTEIN 5.9 g/dL (5.8-8.3)
[2017-05-04 00:41] LABS: TROPONIN I 0.06 ng/mL
[2017-05-04] MEDS ORDERED: cefTRIAXone 1 gm 1 GM/100 ML BAG IVPB STA (00:59)
[2017-05-04] MEDS ORDERED: Vancomycin 1gm in NS 250ml 1 GM/250 ML BAG IVPB STA (00:59)
[2017-05-04 01:26] LABS: PH,URINE 6.5 (4.7-8.0); URINE BILIRUBIN NEGATIVE (NEGATIVE); URINE BLOOD NEGATIVE (NEGATIVE); URINE GLUCOSE (UA) NEGATIVE (NEGATIVE); URINE KETONE NEGATIVE (NEGATIVE); URINE LEUKOCYTE ESTERASE SMALL Leu/uL (NEGATIVE); URINE PROTEIN NEGATIVE mg/dL (<30 mg/dL)
[2017-05-04 01:28] LABS: URINE APPEARANCE CLEAR (CLEAR); URINE COLOR YELLOW (YELLOW)
[2017-05-04 01:40] LABS: URINE BACTERIA FEW (NEG); URINE RBC 0 - 2 /hpf (0-2)
[2017-05-04] MEDS ORDERED: Sodium Chloride 0.9% 1,000 ML IV STA (02:40)
--- NOTE | 2017-05-04 08:59 | RAD ---
HISTORY: cp COMPARISON: Portable chest 03/19/2017. FINDINGS: LUNGS: No active pulmonary disease. A mildly elevated left hemidiaphragm is not completely excluded however the patient is rotated toward the left somewhat limiting the evaluation. PLEURA: No significant pleural effusion identified, no pneumothorax apparent. CARDIOVASCULAR: Normal. OSSEOUS STRUCTURES: No significant abnormalities. VISUALIZED UPPER ABDOMEN: Normal. OTHER FINDINGS: None. IMPRESSION: No interval acute cardiopulmonary disease appreciable if patient is rotated toward the left limb evaluation left hemidiaphragm height. Mildly elevated left hemidiaphragm is not completely excluded.
--- NOTE | 2017-05-04 09:01 | CARD ---
APPROVED REPORT EKG Measurement Heart [id number] <Conclusion> Sinus tachycardia Left axis deviation Right bundle branch block No change
[2017-05-04] MEDS: cefTRIAXone 1 gm 1 GM/100 ML BAG IVPB SCH (10:47)
[2017-05-04] MEDS ORDERED: Albuterol-Ipratrop 3 mg / 0.5 (3 ml) UD IH PRN (11:04)
[2017-05-04] MEDS ORDERED: HYDROmorphone 0.5 mg/0.5 ml ISec IVP PRN (11:11)
[2017-05-04] MEDS: Vancomycin 1gm in NS 250ml 1 GM/250 ML BAG IVPB SCH (11:59)
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
[2017-05-05] MEDS: Vancomycin 1gm in NS 250ml 1 GM/250 ML BAG IVPB SCH ×3 (00:39→12:30)
--- NOTE | 2017-05-05 03:50 | CON ---
DATE: 05/04/2017 PULMONARY CONSULT REFERRING PHYSICIAN: Dr. Rg. REASON FOR CONSULT: Shortness of breath, cellulitis of the lower extremities. HISTORY OF PRESENT ILLNESS: This is a 77-year-old female, well known to me from previous admission, has multiple medical issues including chronic lung disease, coronary artery disease, cryptogenic cirrhosis, recurrent ascites, anemia, recurrent lower extremity edema and cellulitis, may have a sleep apnea syndrome, also has diabetes and hypertension, comes into emergency room with lower extremity erythema, tenderness and swelling, has cellulitis, admitted and seen by infectious disease, started on antibiotics, also with cough and shortness of breath. No hemoptysis and no hematemesis. No hematuria. PAST MEDICAL HISTORY: Hypertension, diabetes, recurrent cellulitis, cryptogenic cirrhosis, ascites, chronic lung disease, coronary artery disease, history of GI bleed, history of gastritis, esophagitis. FAMILY HISTORY: No significant cardiopulmonary disease reported. SOCIAL HISTORY: Lives alone, stopped smoking many years ago. Denies any alcohol use. ALLERGIES: NONE KNOWN. MEDICATIONS: She is on Bactroban to affected area twice a day, Dilaudid 0.25 mg q. 6 hours p.r.n., albuterol, Atrovent nebulizer q. 6 hours p.r.n., Lasix 80 mg IV daily, metoprolol tartrate 12.5 mg daily, Rocephin 1 g daily, Tylenol p.r.n., vancomycin 1 g q. 12 hours. REVIEW OF SYSTEMS: No headache. No rhinitis. He has cough and shortness of breath. No chest pain. Has some ascites. Both legs are erythematous, swollen, and painful. No dysuria, no diarrhea. PHYSICAL EXAMINATION GENERAL: Lying on the bed, some leg discomfort. VITAL SIGNS: Temperature is 98, heart rate 81, respiratory rate is 20, blood pressure 101/49. Pulse ox 98% on room air. HEENT: Moist mucous membrane. Small oral cavity. Crowded airway. NECK: Supple. No JVD. HEART: S1, S2. LUNGS: Scattered rhonchi. ABDOMEN: Soft, nontender, nondistended. Has some ascites. EXTREMITIES: Erythema up to the knees of the both lower extremities. Tender to touch and edematous. NEUROLOGIC: Awake and alert. Follows simple commands. LABORATORY DATA: Shows hemoglobin 11.9, hematocrit 34.1, WBC 7.8, and platelet is 148. Sodium 136, potassium 4.0, chloride 97, bicarbonate 33, BUN 20, creatinine 0.8, glucose 103, calcium 9.3, total bilirubin , AST 34, ALT 24, alkaline phosphatase is 132. Troponin 0.06. Albumin is 3.0. Urinalysis shows wbc 1 to 3, rbc 0 to 2, leukocyte esterase is small. Chest x-ray done today shows unremarkable. No infiltrate or effusion reported. IMPRESSION AND PLAN: Cellulitis of the lower extremity, cardiomyopathy with severe aortic stenosis, pulmonary hypertension, coronary artery disease, heart failure, chronic obstructive lung disease, sleep apnea syndrome, cryptogenic cirrhosis, portal hypertension, history of esophagitis, gastritis, history of compression fracture of the vertebra, history of left pubic ramus fracture, pulmonary point of view doing okay. Continue bronchodilator. Keep head at 45 degrees. Diuretics. Pain management. Antibiotics. Elevate lower extremities. Followup labs in the morning. We will follow with you. Pablo Cantor MD
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
[2017-05-05 06:46] LABS: HEMATOCRIT 35.7 % (36.0-48.0); MEAN CELL VOLUME 92.5 fl (80.0-105.0); MEAN CORPUSCULAR HEMOGLOBIN 31.3 pg (25.0-35.0); MEAN CORPUSCULAR HGB CONC 33.9 g/dl (31.0-37.0); MEAN PLATELET VOLUME 9.8 fl (7.0-11.0); WHITE BLOOD COUNT 5.2 10^3/ul (4.5-11.0)
[2017-05-05 07:17] LABS: ALB/GLOB RATIO 0.9 (1.1-1.8); ALKALINE PHOSPHATASE 99 U/L (38-126); ALT/SGPT 23 U/L (7-56); AST/SGOT 30 U/L (14-36); BILIRUBIN,TOTAL 2.1 mg/dL (0.2-1.3); BLOOD UREA NITROGEN 18 mg/dL (7-21); CALCIUM 8.4 mg/dL (8.4-10.5); CARBON DIOXIDE 28 mmol/L (21-33); CHLORIDE 105 mmol/L (98-107); GFR AFRICAN-AMERICAN > 60; GLUCOSE,RANDOM 89 mg/dL (70-110); POTASSIUM 3.6 mmol/L (3.6-5.0); SODIUM 138 mmol/L (132-148); TOTAL PROTEIN 4.7 g/dL (5.8-8.3)
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
[2017-05-05] MEDS: cefTRIAXone 1 gm 1 GM/100 ML BAG IVPB SCH (10:56)
[2017-05-05] MEDS ORDERED: Magnesium Hydroxide Susp 30 ml UD PO ONE ×2 (12:35→14:46)
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
[2017-05-05] MEDS ORDERED: Magnesium Hydroxide Susp 30 ml UD PO PRN (17:58)
--- NOTE | 2017-05-05 19:49 | PN ---
DATE: 05/05/2017 PULMONARY PROGRESS NOTE REFERRING PHYSICIAN: Kristin Rg MD SUBJECTIVE: She is lying in the bed, feels better. No headache, no rhinitis, no chest pain, no nausea, and no vomiting. She has constipation. Leg pain has improved. PHYSICAL EXAMINATION GENERAL: In no acute distress. VITAL SIGNS: Temperature is 98, heart rate 74, respiratory rate 20, blood pressure 107/47, pulse ox 100% on room air. HEENT: Moist mucous membrane. Small oral cavity. Crowded airway. NECK: Supple. No JVD. LUNGS: Fair airflow with scattered rhonchi. HEART: S1 and S2. ABDOMEN: Soft, nontender. No organomegaly. EXTREMITIES: Has persistent erythema of both lower extremity. Edema is better. NEUROLOGICAL: Awake and alert. Follows simple commands. MEDICATIONS: She is on Bactroban ointment affected area twice a day, Dilaudid 0.25 mg q.6 hours p.r.n., DuoNeb q.6 hours p.r.n., Lasix 80 mg IV daily, metoprolol tartrate 12.5 mg daily, milk of magnesia p.r.n. basis, Rocephin 1 mg IV daily, Tylenol p.r.n. basis, and vancomycin 1 mg IV q.12 hours. LABORATORY DATA: Hemoglobin 12.1, hematocrit 35.7, WBC 5.2, platelet is 101. Sodium is 138, potassium 3.6, chloride 105, bicarbonate 28, BUN 18, creatinine 0.6, glucose 89, calcium 8.4, total bilirubin 2.1, AST 30, ALT 23, alkaline phosphorus 99, albumin 2.2. Microbiology; leg wound has coag negative staph. She has a venous Doppler done report is pending. IMPRESSION AND PLAN: 1. Cellulitis of both lower extremity. 2. Cardiomyopathy with severe aortic stenosis. 3. Pulmonary hypertension. 4. Coronary artery disease. 5. Heart failure. 6. Chronic obstructive lung disease. 7. Sleep apnea syndrome. 8. Cryptogenic cirrhosis. 9. Portal hypertension. 10. Esophagitis. 11. Gastritis. 12. History of compression fracture of the vertebra. 13. Also has a history of left pubic ramus fracture. 14. Constipation. 15. Pulmonary point of view doing okay. Continue bronchodilator and keep at 45 degree, antibiotics, out of bed to chair, and fall precaution. Thank you and we will follow with you. Pablo Cantor MD
--- NOTE | 2017-05-05 20:55 | US ---
EXAM: US Abdomen Limited EXAM DATE/TIME: 05/05/2017 5:41 PM CLINICAL HISTORY: 77 years old, female; Abnormal findings; Abnormal lab test; Elevated liver enzymes; Additional info: Liver cirrhoisis/elevated bilirubin TECHNIQUE: Real-time ultrasound of the abdomen with image documentation. COMPARISON: Prior abdominal CT of 03/19/2017. FINDINGS: Gallbladder: Surgically removed. Common bile duct: Appears dilated, measuring 1.5 cm in diameter (normal less than 7 mm in a patient of this age). Liver: Has a nodular surface contour. Appears diffusely heterogeneous and increased in echogenicity, with no definite focal lesions seen by ultrasound. Findings are most likely due cirrhotic change. Mildly small in size, measuring 13 cm in length. Normal flow seen in the main portal vein on color and Doppler imaging. Pancreas: Obscured by gas. Right kidney: At the lower limits of normal size, measuring 9.2 cm in length. Otherwise unremarkable in appearance. No evidence of hydronephrosis. Left kidney: At the lower limits of normal in size, measuring 9 cm in length. Otherwise unremarkable in appearance. No evidence of hydronephrosis. Spleen: Somewhat poorly seen due to gas. Mildly enlarged, measuring 13 cm in length. Aorta and IVC: Could not be visualized, secondary to bowel gas. IMPRESSION: Dilatation of the common bile duct. This could be secondary to the postcholecystectomy state. Recommend correlation with LFTs for laboratory evidence of biliary obstruction. Otherwise, no evidence of significant acute process. Cirrhotic appearance of the liver. Mild splenomegaly. See above for remaining findings.
--- NOTE | 2017-05-05 21:41 | US ---
HISTORY: Leg pain and swelling. Evaluate for DVT PHYSICIAN(S): Praveen Augustine MD. TECHNIQUE: Duplex sonography and color-flow Doppler with graded compression were used to evaluate the deep venous systems of both lower extremities. The exam is limited by edema. The tibial veins are not adequately seen. FINDINGS: The visualized deep venous systems of both lower extremities are sonographically normal and compressible. Normal wave forms and augmentation are seen. There is no sonographic evidence for deep venous thrombosis in the visualized segments of both lower extremities. IMPRESSION: No sonographic evidence for deep venous thrombosis in the visualized segments of both lower extremities. Very limited study.
--- NOTE | 2017-05-06 00:16 | PN ---
DATE: SUBJECTIVE: The patient is a 77 years old female. The patient was seen and examined on the bedside. No nausea, vomiting, or diarrhea. Still having swelling of the leg and ulcers, but is getting better. Cough is getting better. The patient has constipation. Leg pain is getting better. No rhinitis. Sleep is okay. No fever. No chills. PHYSICAL EXAMINATION: VITAL SIGNS: Temperature 98, heart rate 74, respiratory rate 20, blood pressure 107/47, pulse oximetry 100% on room air. HEENT: Head is normocephalic and atraumatic. Eyes; PERRLA. Extraocular muscles intact. Conjunctivae clear. Nose patent. Mucous membrane moist. NECK: Supple. No carotid bruits. No JVD. No thyromegaly. CHEST: Bilaterally symmetrical. HEART: S1 and S2 positive. LUNGS: Clear to auscultation. ABDOMEN: Soft. Bowel sounds present. No organomegaly. EXTREMITIES: Has erythema of both lower extremities. Edema is better, but there are ulcers of different healing stages. NEUROLOGIC: Awake and alert. Follows simple commands. Oriented x3. MEDICATIONS: Bactroban ointment, Dilaudid, DuoNeb, Lasix, metoprolol, milk of magnesia, Rocephin, Tylenol, and vancomycin. LABORATORY DATA: Hemoglobin 12.1, hematocrit 35.5, white blood cells 5.2, and platelets of 101. Sodium 138, potassium 3.6, BUN 18, creatinine 0.6, AST 30, ALT 23. Microbiology; leg wound has coagulase negative staph. A/P asthma , cad , swelling of legs , pancytopenia , cellulitis of legs , getting anb. as per Id , , enoc wall . out of bed . will f/u ASSESSMENT AND PLAN: Maria D Sullivan is a 77 years old lady, has cellulitis of the both lower extremities, congestive heart failure, cardiomyopathy with severe aortic stenosis and the patient is still with surgery from aortic stenosis, pulmonary hypertension, coronary artery disease, chronic obstructive lung disease, sleep apnea syndrome, noncompliant with bilevel positive air pressure and continuous positive airway pressure, cryptogenic cirrhosis, portal hypertension, esophagitis, gastritis, duodenitis, history of compression fracture of the vertebra, history of the left pubic ramus fracture, constipation; we will give some stool softener, getting antibiotics. Abdominal ultrasound done showed dilatation of the common bile duct, this could be secondary to the post-cholecystectomy state. Recommending correlation with liver function tests for laboratory evidence of biliary obstruction, no evidence of significant acute process, cirrhotic appearance of the liver, mild splenomegaly as per ultrasound, history of pancytopenia, chronic obstructive pulmonary disease, asthma, duodenitis, coronary artery disease with cardiac stenting, seen by Mahogany Murdock, gastroenterology. According to gastroenterology, the patient has portal gastropathy. Getting IV antibiotics, ceftriaxone, vancomycin, one milk of magnesia dose given. Continue diet as tolerated. The patient is willing to take lactulose and MiraLax. Monitoring labs. We will follow up. Kristin Rg MD MTDJeromy
[2017-05-06 06:50] LABS: ALB/GLOB RATIO 0.9 (1.1-1.8); BILIRUBIN,DIRECT 0.5 mg/dL (0.0-0.4); BILIRUBIN,TOTAL 1.9 mg/dL (0.2-1.3); TOTAL PROTEIN 4.6 g/dL (5.8-8.3)
[2017-05-06 07:42] LABS: RETIC% 4.23 % (0.5-1.5)
[2017-05-06] MEDS: cefTRIAXone 1 gm 1 GM/100 ML BAG IVPB SCH (09:43)
[2017-05-06] MEDS: Vancomycin 1gm in NS 250ml 1 GM/250 ML BAG IVPB SCH (12:14)
--- NOTE | 2017-05-06 16:23 | PN ---
DATE: 05/06/2017 SUBJECTIVE: The patient is in bed, in no acute distress, nontoxic. PHYSICAL EXAMINATION VITAL SIGNS: She has a temperature of 98, blood pressure is 107/40, respiratory rate of 18. HEENT: Unremarkable. NECK: Supple. HEART: Normal S1 and S2. LUNGS: Decreased breath sounds. ABDOMEN: Soft and nontender. LABORATORY DATA: Reveals the patient has a white count of 5.2. Chemistries were noted, BUN of 18, creatinine of 0.6. Urinalysis is noted and microbiology reveals a coagulase negative staph from the leg. ASSESSMENT AND PLAN: This is a 77-year-old with bilateral lower extremity cellulitis and weeping in the chronic venous spaces. History of bilateral lower extremity skin and skin soft tissue infection and nonpurulent chronic T12 vertebrae compression fracture and disk bulge, hypertension, diabetes, right leg cellulitis, coronary artery disease and chronic obstructive lung disease on vanco and ceftriaxone. The patient had negative blood cultures, negative urine cultures, leg cultures with coag negative staph and ultrasound of lower extremities reveals no evidence of DVT on vanco and ceftriaxone. Abram Benitez MD
[2017-05-06] MEDS ORDERED: MethylPREDNISolone 40 mg Vial IVP STA (19:27)
[2017-05-06] MEDS ORDERED: DiphenhydrAMINE 50 mg/ml Inj IVP STA (19:27)
--- NOTE | 2017-05-06 20:23 | PN ---
PULMONARY PROGRESS NOTE DATE: 05/06/2017 REFERRING PHYSICIAN: Kristin Rg MD SUBJECTIVE: The patient is lying in the bed, sleepy, arousable, feels better. No headache, no rhinitis. Decreased cough. Still has a low back pain. No nausea, no vomiting, has erythema of the lower extremity with edema. OBJECTIVE GENERAL: In no acute distress. VITAL SIGNS: Temperature is 98, heart rate 77, respiratory rate is 20, blood pressure 107/48, pulse ox 98% on room air. HEENT: Moist mucous membrane. Small oral cavity. Crowded airway. NECK: Supple. No JVD. HEART: S1 and S2. LUNGS: Fair airflow with rhonchi. ABDOMEN: Soft, nontender. No organomegaly. EXTREMITIES: Has edema and diffuse erythema. NEUROLOGIC: Awake and alert. Follows simple commands. LABORATORY DATA: Shows reticulocyte count is 4.23. Chemistry shows ammonia level less than 9, albumin is 2.1, total bilirubin 1.9. AST 27, ALT 33, alkaline phosphatase is 111. Leg wound has coag-negative Staph. MEDICATIONS: Reviewed. Noted Bactroban ointment affected area twice a day, Dilaudid 0.2 mg IV q. 6 hours p.r.n., albuterol and Atrovent nebulizer q. 6 hours p.r.n., Lasix 80 mg daily, metoprolol tartrate 12.5 mg daily, Rocephin 1 g IV daily, Tylenol p.r.n., vancomycin 1 g IV q. 12 hours. IMPRESSION AND PLAN: Cellulitis of both lower extremity, cardiomyopathy with severe aortic stenosis, pulmonary hypertension, coronary artery disease, heart failure, chronic obstructive lung disease, sleep apnea syndrome, cryptogenic cirrhosis, portal hypertension, esophagitis, gastritis, history of compression fracture of the vertebra, history of left pubic ramus fracture, constipation. Pulmonary point of view, doing okay. We will continue bronchodilator and keep at 45 degrees, antibiotics, gastric prophylaxis, high risk for deep venous thrombosis, but cannot place SCD and also cannot give anticoagulation because of coagulopathy from liver disease, may use Tylenol p.r.n. basis for pain. Thank you and we will follow with you. Pablo Cantor MD [facility] # [id number]
--- NOTE | 2017-05-07 06:35 | CP.PCM.PN ---
Subjective - Date & Time of Evaluation Date of Evaluation: 05/06/17 Time of Evaluation: 19:10 - Subjective Subjective: pt on venco and rocephine c/o itching and has rash on body . Objective - Vital Signs/Intake and Output Vital Signs (last 24 hours): Temp Pulse Resp BP Pulse Ox 98.6 F 77 19 110/48 L 99 05/06/17 17:51 05/06/17 17:51 05/06/17 17:51 05/06/17 17:51 05/06/17 17:51 Intake and Output: 05/06/17 05/07/17 18:59 06:59 Intake Total 120 420 Output Total 200 Balance 120 220 - Medications Medications: Current Medications Acetaminophen (Tylenol 325mg Tab) 325 mg PO Q4H PRN PRN Reason: Pain, Mild (1-3) Albuterol/Ipratropium (Duoneb 3 Mg/0.5 Mg (3 Ml) Ud) 3 ml IH [id number] PRN PRN Reason: Wheezing Furosemide (Lasix) 80 mg IVP DAILY [facility] Last Admin: 05/06/17 09:45 Dose: Not Given Hydromorphone HCl (Dilaudid) 0.25 mg IVP Q6 PRN PRN Reason: Pain, severe (8-10) Magnesium Hydroxide (Milk Of Magnesia) 30 ml PO DAILY PRN PRN Reason: Constipation Metoprolol Tartrate (Lopressor) 12.5 mg PO DAILY [facility] Last Admin: 05/06/17 09:43 Dose: 12.5 mg Mupirocin (Bactroban Ointment) 0 gm TOP BID [facility] Last Admin: 05/06/17 17:48 Dose: 1 appful - Labs Labs: 05/05/17 06:10 05/05/17 06:10 - Constitutional Appears: No Acute Distress - Head Exam Head Exam: NORMOCEPHALIC - Eye Exam Eye Exam: PERRL - ENT Exam ENT Exam: Mucous Membranes Moist - Neck Exam Neck Exam: Full ROM - Respiratory Exam Respiratory Exam: Decreased Breath Sounds - Cardiovascular Exam Cardiovascular Exam: RRR - GI/Abdominal Exam GI & Abdominal Exam: Soft - Rectal Exam Rectal Exam: Deferred - Extremities Exam Extremities Exam: Full ROM - Neurological Exam Neurological Exam: Awake - Psychiatric Exam Psychiatric exam: Normal Affect - Skin Skin Exam: Rash Additional comments: pt has generalized erythematous rash on body. Assessment and Plan - Assessment and Plan (Free Text) Assessment: alleric reaction to meds /rash. Plan: benadryl and solumedrol given to pt pt improved.
--- NOTE | 2017-05-07 06:43 | PN ---
DATE: 05/06/2017 SUBJECTIVE: The patient is a 77 years old female. The patient was seen and examined on the bedside. The patient looks comfortable. No nausea, vomiting, or diarrhea. No fever. No chills. No headache. No dizziness. Cough is getting better. Shortness of breath is getting better. Swelling of the legs is getting better. Ulcers of the legs is getting better. PHYSICAL EXAMINATION: VITAL SIGNS: Temperature 98, heart rate 77, respiratory rate 20, blood pressure 107/48, pulse oximetry 98% on room air. HEENT: Head is normocephalic and atraumatic. Eyes; PERRLA. Extraocular muscles intact. Conjunctivae clear. Nose patent. Mucous membrane moist. NECK: Supple. No carotid bruits. No JVD. No thyromegaly. CHEST: Bilaterally symmetrical. HEART: S1 and S2 positive. LUNGS: Fair airflow with rhonchi. ABDOMEN: Soft. Nontender. No organomegaly. EXTREMITIES: Has edema and swelling and redness of the legs. NEUROLOGIC: The patient is awake and alert. Follows simple commands. Cranial nerves II through XII are grossly intact. LABORATORY DATA: We do not have any recent labs today but AST 27, ALT 33, alkaline phosphatase 111. Leg wound has coagulase negative Staph. I reviewed old labs. MEDICATIONS: Bactroban, Dilaudid, albuterol, Atrovent, Lasix, metoprolol, Rocephin, Tylenol, vancomycin. ASSESSMENT AND PLAN: Ms. Maria D Sullivan, a 77 years old lady, with cellulitis of both the lower extremities, swelling of the legs, cardiomyopathy with severe aortic stenosis, received surgery of the aortic stenosis, pulmonary hypertension, coronary artery disease, congestive heart failure, chronic obstructive lung disease, hypothyroidism, cirrhosis of the liver, sleep apnea syndrome, portal hypertension, esophagitis, gastritis, duodenitis, compression fracture of the vertebrae, history of the left pubic ramus fracture, constipation. Continue bronchodilators, antibiotics, gastric prophylaxis. Cannot give DVT prophylaxis because of pancytopenia due to cirrhosis of liver and cannot ascertain due to the lower extremity because of the ulceration and cellulitis. GI prophylaxis. We will followup. Kristin Rg MD
--- NOTE | 2017-05-07 13:21 | PN ---
DATE: 05/07/2017 SUBJECTIVE: The patient is seen early this morning. The patient has a new rash and she developed that rash and was believe to be after vancomycin, although it is not entirely clear, which medication was the cause of this. PHYSICAL EXAMINATION: VITAL SIGNS: Temperature is 97, blood pressure is 110/40, respiratory rate of 20, and heart rate of 74. HEENT: Unremarkable. NECK: Supple. LUNGS: Decreased breath sounds. HEART: Normal S1 and S2. ABDOMEN: Soft. SKIN: There is a diffuse maculopapular allergic appearing rash throughout her arms and chest and some of it in her lower extremities. LABORATORY DATA: Examination reveals a white count of 5.2 and hemoglobin of 12. Chemistry reveals a BUN of 18 and creatinine of 0.6. Microbiology reveals a coagulase-negative Staphylococcus. Review of orders are noted. ASSESSMENT AND PLAN: This is a 77-year-old female with bilateral lower extremity cellulitis and which appears to have resolved, there is chronic changes at this point and history of bilateral lower extremity skin and skin soft tissue infection, non-purulent, and chronic T12 vertebral compression fracture and disk bulge, hypertension, and diabetes. The right leg appeared worse than the left, however, now chronic changes with coronary artery disease on vancomycin and ceftriaxone which was discontinued. I will discontinue vancomycin and ceftriaxone due to new rash, maculopapular rash appears to be more beta-lactam, we will discontinue both. Intravenous antibiotics complete with p.o. doxycycline 100 mg p.o. b.i.d. x5 days. Abram Benitez MD
--- NOTE | 2017-05-08 03:16 | PN ---
SUBJECTIVE: The patient is a 77 years old female. The patient is seen and examined on the bedside, looking comfortable, having episodes of redness of the skin and flushing. House physician, Dr. Fishman was called, and she stopped vancomycin and Rocephin. By seeing that the patient has allergic reaction, Benadryl was given. When I saw the patient the late evening, looking comfortable. No nausea, vomiting, or diarrhea. No hematuria or hematochezia. No swelling of the leg. No chest pain. No palpitations. No headache or dizziness. PHYSICAL EXAMINATION: VITAL SIGNS: Temperature 97.5, pulse 74, blood pressure 133/55, and respiratory rate 20. HEENT: Head is normocephalic and atraumatic. Eyes; PERRLA. Extraocular muscles intact. Conjunctivae clear. Nose patent. NECK: Supple. No carotid bruits. No JVD. No thyromegaly. CHEST: Bilaterally symmetrical. HEART: S1 and S2 positive. LUNGS: Clear to auscultation. ABDOMEN: Soft. Bowel sounds positive. No organomegaly. EXTREMITIES: No edema. No cyanosis. NEUROLOGIC: The patient is awake and alert. Moving all 4 extremities. No focal deficits. MEDICATIONS: Bactroban cream, Dilaudid, doxycycline, DuoNeb, Lasix, Lopressor, milk of magnesia, Tylenol. LABORATORY DATA: White blood cells 5.2, hemoglobin 12.1, hematocrit 35.7, and platelets 101. Sodium 138, potassium 3.6, BUN 18, creatinine 0.6. Total bilirubin 1.9, on admission it was 3.4. Direct bilirubin 0.5. ASSESSMENT AND PLAN: The patient is a 77 years old female with thrombocytopenia; abnormal liver function test, trending down; came with cellulitis of the leg, swelling of the legs, ulcers on the legs bilaterally, seen by infectious disease. Cellulitis is resolving. Has chronic changes at this point and history of bilateral lower extremity skin and skin soft tissue infection, nonpurulent, chronic T12 vertebral compression fracture and disk bulging, hypertension. The right leg appears worse than the left, however, no chronic changes with coronary artery disease, status post cardiac stenting, on vancomycin and ceftriaxone, which was discontinued because of allergic reactions. They knew the rash was maculopapular rash. Maculopapular rash appears to be more beta-lactamase. Discontinue both antibiotics. Started the patient on doxycycline 100 mg p.o. b.i.d for 5 days as per infectious disease. We will try to do TCU for deconditioning and fatigue. She has a history of cardiomyopathy, aortic stenosis, surgery was refused, pulmonary hypertension, also sleep apnea syndrome and congestive heart failure, cryptogenic cirrhosis, portal hypertension, esophagitis, gastritis, duodenitis, pubic ramus fracture, history of constipation. We will try to do PT. We will follow up. Kristin Rg MD
--- NOTE | 2017-05-08 03:53 | PN ---
DATE: 05/07/2017 REFERRING PHYSICIAN: Dr. Rg. SUBJECTIVE: The patient is lying in the bed, head at 45 degrees, night was unremarkable. Feels okay. Not much cough, no sputum production, no nausea, no vomiting. Leg swelling and pain is better. Her is improved. OBJECTIVE: GENERAL: In no acute distress. VITAL SIGNS: Temperature 98, heart rate 74, respiratory rate is 20, blood pressure 133/55, pulse ox 95% on room air. HEENT: Moist mucous membranes. Small oral cavity. NECK: Supple. No JVD. LUNGS: Have few scattered rhonchi. HEART: Irregularly irregular. ABDOMEN: Soft and nontender. No organomegaly. EXTREMITIES: Has edema. Erythema is much better. NEUROLOGIC: Awake and alert. Follows simple commands. LABORATORY DATA: Reviewed. No new labs available since yesterday. IMPRESSION AND PLAN: Cellulitis of both lower extremity, cardiomyopathy with severe aortic stenosis, pulmonary hypertension, coronary artery disease, heart failure, chronic obstructive lung disease, sleep apnea syndrome, cryptogenic cirrhosis, portal hypertension, history of esophagitis, history of compression fracture of the vertebra, left pubic ramus fracture, chronic constipation. Pulmonary point of view, doing okay. Keep head at 45 degrees, bronchodilator p.r.n. basis, diuretics, antibiotics, elevate lower extremities, gastric prophylaxis. Follow up labs in the morning. We will follow with you. Pablo Cantor MD
[2017-05-08 07:09] LABS: HEMATOCRIT 31.5 % (36.0-48.0); MEAN CELL VOLUME 93.5 fl (80.0-105.0); MEAN CORPUSCULAR HEMOGLOBIN 31.5 pg (25.0-35.0); MEAN CORPUSCULAR HGB CONC 33.7 g/dl (31.0-37.0); MEAN PLATELET VOLUME 8.7 fl (7.0-11.0); RED CELL DISTRIBUTION WIDTH 15.3 % (11.5-14.5); WHITE BLOOD COUNT 7.7 10^3/ul (4.5-11.0)
[2017-05-08 07:27] LABS: ALB/GLOB RATIO 0.8 (1.1-1.8); ALKALINE PHOSPHATASE 123 U/L (38-126); ALT/SGPT 36 U/L (7-56); AST/SGOT 31 U/L (14-36); BILIRUBIN,TOTAL 1.3 mg/dL (0.2-1.3); BLOOD UREA NITROGEN 22 mg/dL (7-21); CALCIUM 8.7 mg/dL (8.4-10.5); CARBON DIOXIDE 30 mmol/L (21-33); CHLORIDE 104 mmol/L (98-107); GFR AFRICAN-AMERICAN > 60; GLUCOSE,RANDOM 94 mg/dL (70-110); POTASSIUM 4.1 mmol/L (3.6-5.0); SODIUM 137 mmol/L (132-148); TOTAL PROTEIN 4.4 g/dL (5.8-8.3)
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
--- NOTE | 2017-05-08 20:45 | PN ---
DATE: 05/08/2017 REFERRING PHYSICIAN: Dr. Rg. SUBJECTIVE: She is lying in the bed, head at 45 degrees, night was unremarkable. No cough, no sputum production. No abdominal pain. Does have some low back pain, decreased leg swelling. Decreased erythema. Participated in physical therapy. Able to stand up and will take few steps. OBJECTIVE: GENERAL: In no acute distress. VITAL SIGNS: Temperature 98, heart rate 78, respiratory rate is 20, blood pressure 119/51, pulse ox 99% on room air. HEENT: Moist mucous membranes. Small oral cavity. NECK: Supple. No JVD. LUNGS: Have fair airflow with rhonchi. HEART: S1 and S2. ABDOMEN: Soft and nontender. No organomegaly. EXTREMITIES: Has edema. Erythema is decreased. Edema is decreased. NEUROLOGIC: Awake and alert. Follows simple commands. MEDICATIONS: She is on Bactrim ointment on affected area twice a day, doxycycline 100 mg twice a day, albuterol and Atrovent nebulizer q. 6 hours p.r.n., Lasix 80 mg daily, metoprolol tartrate 12.5 mg daily, and Tylenol p.r.n. basis. LABORATORY DATA: Shows hemoglobin 10.6, hematocrit 31.5, WBC 7.7, platelet count is 102, reticulocyte count is 4.23. Sodium 137, potassium 4.1, chloride 104, bicarbonate 30, BUN 22, creatinine 0.6, glucose 94, calcium is 8.7, total bilirubin 1.3. AST 31, ALT 36, alkaline phosphatase is 123, albumin is 2.0. IMPRESSION AND PLAN: Cellulitis of both lower extremity, cardiomyopathy with severe aortic stenosis, pulmonary hypertension, coronary artery disease, heart failure, chronic obstructive lung disease, sleep apnea syndrome, cryptogenic cirrhosis, portal hypertension, history of esophagitis, history of compression fracture of the vertebra, left pubic ramus fracture, chronic constipation, ADL dysfunction. Continue as per infectious disease. Continue bronchodilator, keep head elevated at 45 degrees, diuretics, SCD to lower extremity. Podiatry followup, fall precaution. Continue therapy. Thank you and we will follow with you. Pablo Cantor MD
--- NOTE | 2017-05-09 02:27 | PN ---
SUBJECTIVE: The patient is a 77-year-old female. The patient is seen and examined on the bedside, looking comfortable, swelling of the leg is getting better. She is getting better. No cough. No chest pain. No sputum production. Just doing physical therapy. No fever. No chills. PHYSICAL EXAMINATION: VITAL SIGNS: Temperature 98, heart rate 78, respiratory 20, blood pressure 120/50 and pulse oximetry 99% on room air. HEENT: Head is normocephalic and atraumatic. Eyes: PERRLA, extraocular muscles intact, conjunctivae are clear. Nose patent. Mucous membrane moist. NECK: Supple. No carotid bruits or thyromegaly. CHEST: Bilaterally symmetrical. HEART: S1 and S2 positive. LUNGS: Clear to auscultation. ABDOMEN: Soft. Bowel sounds present. No organomegaly. EXTREMITIES: Positive edema, but getting better. Erythema is decreasing. NEUROLOGICALLY: The patient is awake and alert. Follows simple commands. MEDICATIONS: Bactrim ointment, doxycycline, albuterol, Lasix, metoprolol, and Tylenol. LABORATORY DATA: Hemoglobin 10.6, hematocrit 31.5, white blood cells 7.7, platelets 102. Sodium 137, potassium 4.1, BUN 22, creatinine 0.6, glucose 94, AST 31 and ALT 36. ASSESSMENT AND PLAN: The patient is a 77-year-old lady, has cellulitis of both extremities, swelling of the legs, congestive heart failure, cardiomyopathy, severe aortic stenosis, pulmonary hypertension, coronary artery disease with cardiac stenting, chronic obstructive lung disease, sleep apnea syndrome, cryptogenic cirrhosis with portal hypertension, history of pancytopenia, esophagitis, gastritis, duodenitis, compression fracture of the vertebrae, left pubic ramus fracture, chronic constipation, activities of daily living dysfunction. Continue p.o. antibiotics as per infectious disease, bronchodilators, diuretics, sequential compression device to the lower extremities, fall precautions, physical therapy, trying to get rehab if she lives alone. Continue present treatment. We will followup. Kristin Rg MD
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
--- NOTE | 2017-05-10 02:29 | PN ---
PULMONARY PROGRESS NOTE DATE: 05/09/2017 REFERRING PHYSICIAN: Kristin Rg MD SUBJECTIVE: The patient is lying in the bed, head at 45 degrees, and day was unremarkable. No headache. No rhinitis. No nausea. No vomiting. Decreased leg swelling and erythema. PHYSICAL EXAMINATION: GENERAL: In no acute distress. VITAL SIGNS: Temperature is 98, heart rate is 84, respiratory rate is 18, blood pressure is 118/57, and pulse ox is 96% on room air. HEENT: Moist mucous membranes. Small oral cavity. NECK: Supple. No JVD. LUNGS: Have fair airflow with rhonchi. HEART: S1 and S2. ABDOMEN: Soft and nontender. No organomegaly. EXTREMITIES: Trace edema. No more erythema. NEUROLOGIC: Awake and alert. Follows simple commands. MEDICATIONS: She is on Bactroban ointment on affected area twice a day, doxycycline 100 mg twice a day,DuoNeb q.6 hours p.r.n., Lasix 80 mg daily, metoprolol tartrate 12.5 mg daily, milk of magnesia p.o. daily, and Tylenol p.r.n. basis. LABORATORY DATA: Reviewed. No new lab is available. IMPRESSION AND PLAN: Cellulitis of both lower extremities, cardiomyopathy, severe aortic stenosis, pulmonary hypertension, coronary artery disease, heart failure, chronic obstructive lung disease, sleep apnea syndrome, cryptogenic cirrhosis, portal hypertension, history of esophagitis, history of compression fracture of the vertebra, left pubic ramus fracture, chronic constipation, and activities of daily living dysfunction. Pulmonary point of view, doing well. Keep head at 45 degrees, aspiration precaution, fall precaution, gastric prophylaxis, and sequential compression device to lower extremity. Pablo Cantor MD
--- NOTE | 2017-05-10 11:07 | CP.PCM.PN ---
<Mahogany Murdock - Last Filed: 05/10/17 11:06> Subjective - Date & Time of Evaluation Date of Evaluation: 05/10/17 Time of Evaluation: 08:50 - Subjective Subjective: Seen and examined at the bedside earlier this morning, the chart was reviewed. Patient with no new complaints, having formed stool no reports of bleeding. Tolerating his oral intake. No acute overnight events reported. Objective - Vital Signs/Intake and Output Vital Signs (last 24 hours): Temp Pulse Resp BP Pulse Ox 98.3 F 76 22 138/60 95 05/10/17 06:00 05/10/17 06:00 05/10/17 06:00 05/10/17 09:49 05/10/17 06:00 Intake and Output: 05/10/17 05/10/17 06:59 18:59 Intake Total 420 Output Total 400 Balance 20 - Medications Medications: Current Medications Acetaminophen (Tylenol 325mg Tab) 325 mg PO Q4H PRN PRN Reason: Pain, Mild (1-3) Last Admin: 05/08/17 03:05 Dose: 325 mg Albuterol/Ipratropium (Duoneb 3 Mg/0.5 Mg (3 Ml) Ud) 3 ml IH [id number] PRN PRN Reason: Wheezing Doxycycline Hyclate (Doryx) 100 mg PO Q12 ALEXANDRA PRN Reason: Protocol Stop: 05/12/17 10:01 Last Admin: 05/10/17 09:49 Dose: 100 mg Furosemide (Lasix) 80 mg IVP DAILY COUNT INCLUDES THE [facility] Last Admin: 05/10/17 09:49 Dose: 80 mg Magnesium Hydroxide (Milk Of Magnesia) 30 ml PO DAILY PRN PRN Reason: Constipation Metoprolol Tartrate (Lopressor) 12.5 mg PO DAILY COUNT INCLUDES THE [facility] Last Admin: 05/10/17 09:50 Dose: 12.5 mg Mupirocin (Bactroban Ointment) 0 gm TOP BID COUNT INCLUDES THE [facility] Last Admin: 05/10/17 09:50 Dose: 1 appful - Labs Labs: 05/08/17 06:58 05/08/17 06:58 - Constitutional Appears: No Acute Distress - Head Exam Head Exam: NORMOCEPHALIC - Eye Exam Eye Exam: Normal appearance. absent: Scleral icterus - ENT Exam ENT Exam: Mucous Membranes Moist - Neck Exam Neck Exam: Normal Inspection - Respiratory Exam Respiratory Exam: NORMAL BREATHING PATTERN. absent: Respiratory Distress - Cardiovascular Exam Cardiovascular Exam: +S1, +S2 - GI/Abdominal Exam GI & Abdominal Exam: Soft, Normal Bowel Sounds. absent: Guarding, Tenderness, Rebound - Extremities Exam Extremities Exam: Normal Capillary Refill, Pedal Edema (improving) - Neurological Exam Neurological Exam: Alert, Awake, Oriented x3 - Skin Skin Exam: Dry, Warm Assessment and Plan - Assessment and Plan (Free Text) Assessment: Assessment: Bilateral lower extremity cellulitis, improving Resolved Hyperbilirubinemia , s/p abdominal ultrasound, cirrhosis of liver, no mass, maybe secodnary to hepatic congestion Cryptogenic liver cirrhosis, last AFP 03/2017: 1.8, [place] Portal gastropathy Chronic constipation h/o cholecystectomy COPD History of pelvic fracture History of CAD Plan: On oral doxycycline milk of magnesia prn, patient does not want any lactulose or MiraLAX Continue diet as tolerated Patient is on Lasix monitor electrolytes monitor LFTs Plan for transfer to TCU, patient is doing well. Continue current treatment, no plan GI interventions at this time. Seen and discussed with Dr. Freitas. <Stewart Freitas V - Last Filed: 05/10/17 21:03> Objective - Vital Signs/Intake and Output Vital Signs (last 24 hours): Temp Pulse Resp BP Pulse Ox 98.6 F 76 20 106/50 L 90 L 05/10/17 17:04 05/10/17 17:04 05/10/17 17:04 05/10/17 17:04 05/10/17 17:04 Intake and Output: 05/10/17 05/11/17 18:59 06:59 Intake Total 725 Balance 725 - Medications Medications: Current Medications Acetaminophen (Tylenol 325mg Tab) 325 mg PO Q4H PRN PRN Reason: Pain, Mild (1-3) Last Admin: 05/08/17 03:05 Dose: 325 mg Albuterol/Ipratropium (Duoneb 3 Mg/0.5 Mg (3 Ml) Ud) 3 ml IH [id number] PRN PRN Reason: Wheezing Doxycycline Hyclate (Doryx) 100 mg PO Q12 ALEXANDRA PRN Reason: Protocol Stop: 05/12/17 10:01 Last Admin: 05/10/17 09:49 Dose: 100 mg Furosemide (Lasix) 80 mg IVP DAILY ALEXANDRA Last Admin: 05/10/17 09:49 Dose: 80 mg Magnesium Hydroxide (Milk Of Magnesia) 30 ml PO DAILY PRN PRN Reason: Constipation Metoprolol Tartrate (Lopressor) 12.5 mg PO DAILY COUNT INCLUDES THE [facility] Last Admin: 05/10/17 09:50 Dose: 12.5 mg Mupirocin (Bactroban Ointment) 0 gm TOP BID COUNT INCLUDES THE [facility] Last Admin: 05/10/17 17:32 Dose: 1 appful - Labs Labs: 05/08/17 06:58 05/08/17 06:58 Attending/Attestation - Attestation I have personally seen and examined this patient.: Yes I have fully participated in the care of the patient.: Yes I have reviewed all pertinent clinical information, including history, physical exam and plan: Yes Notes (Text): This is an addendum to GI progress report dictated by Mahogany Murdock APN.The patient was seen and examined earlier. Medical records, lab studies, imagings were reviewed. Last 24 hours events reviewed. Agreed with the above treatment plan as outlined in Mahogany Murdock APN's notes the with the addition of the following feels much better Related to his clinically improving LFTs have become normalized status post cholecystectomy dilated common bile duct Cirrhosis of the liver status post liver biopsy in 2000 etiology is unclear cryptogenic Endoscopy done 2013 revealed esophageal varices Patient presently on metoprolol Would recommend changing to a nonselective beta blockrt nadolol 05/10/17 20:45
--- NOTE | 2017-05-10 20:07 | PN ---
PULMONARY PROGRESS NOTE REFERRING PHYSICIAN: Dr. Rg. SUBJECTIVE: The patient is sitting up in a chair, feels much better; having lunch. No cough. No sputum production. No nausea. No vomiting. No diarrhea. Decreased leg swelling and erythema. OBJECTIVE: GENERAL: In no acute distress. VITAL SIGNS: Temperature is 98, heart rate is 76, respiratory rate is 20, blood pressure is 138/60, and pulse ox is 95% on room air. HEENT: Moist mucous membranes. Small oral cavity. Crowded airway. NECK: Supple. No JVD. LUNGS: Have fair airflow with few rhonchi. HEART: S1 and S2. ABDOMEN: Soft and nontender. No organomegaly. EXTREMITIES: Decreased edema and erythema. NEUROLOGIC: Awake and alert. Follows simple commands. MEDICATIONS: She is on Bactroban ointment on affected area, doxycycline 100 mg twice a day, DuoNeb q.6 hours, Lasix 80 mg IV daily, metoprolol tartrate 12.5 mg daily, milk of magnesia p.r.n. basis, and Tylenol p.r.n. basis. LABORATORY DATA: Shows no new lab available since yesterday. IMPRESSION AND PLAN: Cellulitis of both lower extremities, cardiomyopathy, severe aortic stenosis, pulmonary hypertension, coronary artery disease, heart failure, chronic obstructive lung disease, sleep apnea syndrome, cryptogenic cirrhosis, portal hypertension, history of esophagitis, history of compression fracture of the vertebra, also has a history of left pubic ramus fracture, chronic constipation, and activities of daily living dysfunction. The patient is feeling much better. Pulmonary status is stable, , discharge planning and the progress, fall precautions, continue diuretics. We will follow up with you. Pablo Cantor MD
--- NOTE | 2017-05-11 00:53 | PN ---
DATE: 05/10/2017 SUBJECTIVE: The patient is in bed. No acute distress. Nontoxic. PHYSICAL EXAMINATION: VITAL SIGNS: Temperature is 98, blood pressure is 106/50, respiratory rate 22 and heart rate of 76. HEENT: Unremarkable. NECK: Supple. LUNGS: Has decreased breath sounds. HEART: Normal S1 and S2. ABDOMEN: Soft and nontender. LABORATORY EXAMINATION: Reveals white count of 7.7, hemoglobin of 10 and platelets of 102. BUN of 22, creatinine is 0.6. Urinalysis is noted. Microbiology reveals left leg cultures coag-negative staph, blood cultures are negative. ASSESSMENT AND PLAN: This is a 77-year-old with bilateral lower extremity cellulitis, much improved. The patient is seen early this morning in room 367, bed 2 with legs have greatly improved. Currently on p.o. doxycycline, today day #4 will complete one more day to complete 5 days of therapy p.o. Abram Benitez MD
--- NOTE | 2017-05-11 02:42 | PN ---
DATE: SUBJECTIVE: The patient is seen and examined on the bedside, looks comfortable, sitting on the chair. No nausea, vomiting, diarrhea. Stool is formed. Swelling of the leg is better. Rash of the leg is getting better. Cough is better. No shortness of breath. Waiting for the bed in TCU. PHYSICAL EXAMINATION VITAL SIGNS: Temperature 98.3, pulse 76, respiratory rate 20, blood pressure 158/60, pulse oximetry 95%. HEENT: Head is normocephalic and atraumatic. Eyes; PERRLA. Extraocular muscles intact. Conjunctivae clear. Nose patent. Mucous membranes moist. NECK: Supple. No carotid bruits or thyromegaly. CHEST: Bilaterally symmetrical. HEART: S1 and S2 positive. LUNGS: Clear to auscultation. ABDOMEN: Soft. Bowel sounds present. No organomegaly. EXTREMITIES: Trace edema. Cellulitis is better. No cyanosis. No clubbing. NEUROLOGIC: The patient is awake, alert. Moving all 4 extremities. No focal deficit. MEDICATIONS: Tylenol, DuoNeb, doxycycline, Lasix, milk of magnesia, Lopressor, and Bactroban cream. LABORATORY DATA: White blood cells 7.7, hemoglobin 10.6, hematocrit 31.5, and platelets 102. Sodium 137, potassium 4.1, BUN 22, creatinine 0.6 and glucose 94. ASSESSMENT AND PLAN: Ms. Laurie Killian is a 77-year-old lady with anemia, thrombocytopenia, increased BUN, history of bilateral lower extremity cellulitis improving, resolving hyperbilirubinemia, cirrhosis of the liver, no mass, hepatic condition, cryptogenic liver cirrhosis, portal gastropathy, chronic constipation, history of cholecystectomy, chronic obstructive pulmonary disease, history of pelvic fracture, history of coronary artery disease with cardiac stenting, history of diabetes mellitus, asthma, history of cardiomyopathy, severe aortic stenosis, refused surgery, pulmonary hypertension, sleep apnea syndrome, history of esophagitis, gastritis, compression fracture of the vertebrae, left pubic ramus fracture, chronic constipation, activities of daily living dysfunction, getting Physical Therapy and p.o. antibiotics, waiting for TCU bed, repeat labs. We will follow. Kristin Rg MD ARACELI
[2017-05-11 07:35] VITALS: O2SAT 97
[2017-05-11 10:34] VITALS: PULSE 78
--- NOTE | 2017-05-11 13:23 | CP.PCM.PN ---
<Mahogany Murdock - Last Filed: 05/11/17 13:22> Subjective - Date & Time of Evaluation Date of Evaluation: 05/11/17 Time of Evaluation: 10:10 - Subjective Subjective: S&E at bedside this am, chart reviewed, No acute overnight events reported. No N /V or abdominal pain. No reports of overt GI bleed. Tolerating oral intake, having regular BM, no bleeding. Objective - Vital Signs/Intake and Output Vital Signs (last 24 hours): Temp Pulse Resp BP Pulse Ox 98.2 F 78 20 114/61 97 05/11/17 06:00 05/11/17 10:28 05/11/17 06:00 05/11/17 10:32 05/11/17 06:00 Intake and Output: 05/11/17 05/11/17 06:59 18:59 Intake Total 420 Output Total 900 Balance -480 - Medications Medications: Current Medications Acetaminophen (Tylenol 325mg Tab) 325 mg PO Q4H PRN PRN Reason: Pain, Mild (1-3) Last Admin: 05/08/17 03:05 Dose: 325 mg Albuterol/Ipratropium (Duoneb 3 Mg/0.5 Mg (3 Ml) Ud) 3 ml IH [id number] PRN PRN Reason: Wheezing Doxycycline Hyclate (Doryx) 100 mg PO Q12 ALEXANDRA PRN Reason: Protocol Stop: 05/12/17 10:01 Last Admin: 05/11/17 10:28 Dose: 100 mg Furosemide (Lasix) 80 mg IVP DAILY [facility] Last Admin: 05/11/17 10:32 Dose: 80 mg Magnesium Hydroxide (Milk Of Magnesia) 30 ml PO DAILY PRN PRN Reason: Constipation Metoprolol Tartrate (Lopressor) 12.5 mg PO DAILY [facility] Last Admin: 05/11/17 10:28 Dose: 12.5 mg Mupirocin (Bactroban Ointment) 0 gm TOP BID [facility] Last Admin: 05/11/17 10:32 Dose: 1 appful - Labs Labs: 05/08/17 06:58 05/08/17 06:58 - Constitutional Appears: No Acute Distress - Head Exam Head Exam: NORMOCEPHALIC - Eye Exam Eye Exam: Normal appearance. absent: Scleral icterus - ENT Exam ENT Exam: Mucous Membranes Moist - Neck Exam Neck Exam: Normal Inspection - Respiratory Exam Respiratory Exam: Clear to Ausculation Bilateral, NORMAL BREATHING PATTERN. absent: Respiratory Distress - Cardiovascular Exam Cardiovascular Exam: +S1, +S2 - GI/Abdominal Exam GI & Abdominal Exam: Soft, Normal Bowel Sounds. absent: Guarding, Tenderness, Rebound - Extremities Exam Extremities Exam: Normal Capillary Refill. absent: Calf Tenderness Additional comments: improved edema and eyrthema - Neurological Exam Neurological Exam: Alert, Awake, Oriented x3 - Skin Skin Exam: Dry, Warm Assessment and Plan - Assessment and Plan (Free Text) Assessment: Assessment: Bilateral lower extremity cellulitis, improving Resolved Hyperbilirubinemia , s/p abdominal ultrasound, cirrhosis of liver, no mass, maybe secondary to hepatic congestion Cryptogenic liver cirrhosis, last AFP 03/2017: 1.8, [place] Portal gastropathy Chronic constipation h/o cholecystectomy COPD History of pelvic fracture History of CAD Plan: On oral doxycycline MOM prn and prune juice Continue diet as tolerated Patient is on Lasix monitor electrolytes monitor LFTs FU hemachromatosis panel Plan for transfer to TCU, patient is doing well. Continue current treatment, no plan GI interventions at this time. Seen and discussed with Dr. Freitas. <Stewart Freitas V - Last Filed: 05/11/17 22:40> Objective - Vital Signs/Intake and Output Vital Signs (last 24 hours): Temp Pulse Resp BP Pulse Ox 98.4 F 78 19 120/56 L 97 05/11/17 17:50 05/11/17 17:50 05/11/17 17:50 05/11/17 17:50 05/11/17 17:50 - Labs Labs: 05/08/17 06:58 05/08/17 06:58 Attending/Attestation - Attestation I have personally seen and examined this patient.: Yes I have fully participated in the care of the patient.: Yes I have reviewed all pertinent clinical information, including history, physical exam and plan: Yes Notes (Text): This is an addendum to GI progress report dictated by Mahogany Murdock APN.The patient was seen and examined earlier. Medical records, lab studies, imagings were reviewed. Last 24 hours events reviewed. Agreed with the above treatment plan as outlined in Mahogany Murdock APN's notes the with the addition of the following PATIENT'S PREVIOUS LIVER STUDIES REVIEWED LFTs improving trend aabdomen soft no tenderness Bowel movements better with laxatives 05/11/17 22:39
--- NOTE | 2017-05-11 16:41 | PN ---
SUBJECTIVE: The patient is in bed, in no acute distress, nontoxic. PHYSICAL EXAMINATION: VITAL SIGNS: Temperature is 98, blood pressure is 116/60, respiratory rate of 20, and heart rate of 81. HEENT: Unremarkable. NECK: Supple. LUNGS: Decreased breath sounds. HEART: Normal S1 and S2. ABDOMEN: Soft and nontender. LABORATORY EXAMINATION: Reveals a white count of 7.7, hemoglobin of 10. Chemistries reveal the BUN of 22, creatinine of 0.6. Urinalysis is noted. Microbiology shows a left leg to be coag-negative staph. Review of mediations reveals the patient to be on doxycycline, which I have reordered. ASSESSMENT AND PLAN: This is a 77-year-old with bilateral lower extremity cellulitis, greatly improved. Today is day #5 of doxycycline. We will complete the doxycycline after today's dose and we will follow with you. The patient is at risk for developing nosocomial infection. Abram Benitez MD
[2017-05-11 17:50] VITALS: BP 120/56; RESP 19; TEMP 98.4
--- NOTE | 2017-05-12 00:13 | PN ---
DATE: 05/11/2017 PULMONARY PROGRESS NOTE REFERRING PHYSICIAN: Kristin Rg MD SUBJECTIVE: She is out of bed to chair. Friends are at bedside, feels okay. No headache. No rhinitis. No nausea. No vomiting. She has a trace leg swelling and erythema has gone. OBJECTIVE: GENERAL: In no acute distress. VITAL SIGNS: Temperature is 98, heart rate is 78, respiratory rate is 18, blood pressure is 120/56, and pulse oximetry is 97% on room air. HEENT: Moist mucous membranes. Crowded airway. NECK: Supple. No JVD. LUNGS: Have fair airflow with rhonchi. HEART: S1 and S2. ABDOMEN: Soft and nontender. No organomegaly. EXTREMITIES: Has chronic changes. Some edema. No erythema. NEUROLOGIC: Awake and alert. Follows simple commands. MEDICATIONS: Reviewed. No new change in medication reported. LABORATORY DATA: Shows no new labs since yesterday. IMPRESSION AND PLAN: Cellulitis, both lower extremity, cardiomyopathy, severe aortic stenosis, pulmonary hypertension, coronary artery disease, heart failure, chronic obstructive lung disease, sleep apnea syndrome, cryptogenic cirrhosis, portal hypertension, history of esophagitis, history of compression fracture of the vertebra and also history of left pubic ramus fracture, chronic constipation, activities of daily living dysfunction. The patient is being discharged and transferred to subacute to continue care, fall precaution. Continue diuretics, bronchodilators, gastric prophylaxis, deep venous thrombosis prophylaxis, and high risk for fall. Thank you and will follow with you. Pablo Cantor MD
== END 2017-05-11 21:12 | DRG 603 ==
LOC: ED 22:06 → ERH 05-04 01:00 → 3RNO 05-04 04:07
PROVIDERS: ADMIT Internal Medicine; ATTEND Internal Medicine
DX: L03.116 Cellulitis of left lower limb (principal); I42.9 Cardiomyopathy, unspecified; I85.10 Secondary esophageal varices without bleeding; K76.6 Portal hypertension; I11.0 Hypertensive heart disease with heart failure; I50.9 Heart failure, unspecified; L03.115 Cellulitis of right lower limb; K74.60 Unspecified cirrhosis of liver; J44.9 Chronic obstructive pulmonary disease, unspecified; I25.10 Atherosclerotic heart disease of native coronary artery without angina pectoris; K59.09 Other constipation; I87.8 Other specified disorders of veins; M51.86 Other intervertebral disc disorders, lumbar region; F32.9 Major depressive disorder, single episode, unspecified; K29.70 Gastritis, unspecified, without bleeding; I35.0 Nonrheumatic aortic (valve) stenosis; I27.20 Pulmonary hypertension, unspecified; G47.30 Sleep apnea, unspecified; K20.9 Esophagitis, unspecified; K29.80 Duodenitis without bleeding; L27.0 Generalized skin eruption due to drugs and medicaments taken internally; T36.8X5A Adverse effect of other systemic antibiotics, initial encounter; M48.54XD Collapsed vertebra, not elsewhere classified, thoracic region, subsequent encounter for fracture with routine healing; E11.9 Type 2 diabetes mellitus without complications; Z87.891 Personal history of nicotine dependence; Z95.5 Presence of coronary angioplasty implant and graft; Z87.81 Personal history of (healed) traumatic fracture

== ENCOUNTER 2017-06-30 07:17 | Emergency (ER) | payer MEDICARE ==
[2017-06-30 07:25] VITALS: BMI 26.7
[2017-06-30 07:37] VITALS: TEMP 98.6; O2SAT 98
[2017-06-30 08:41] VITALS: BP 141/80; PULSE 75; RESP 17
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
== END 2017-06-30 08:41 | disposition home or self-care (01) ==
LOC: ED 07:17
DX: R04.0 Epistaxis (principal); I10 Essential (primary) hypertension; I50.9 Heart failure, unspecified; J44.9 Chronic obstructive pulmonary disease, unspecified; Z87.891 Personal history of nicotine dependence; E11.9 Type 2 diabetes mellitus without complications

== ENCOUNTER 2017-08-03 09:58 | Emergency (ER) | payer MEDICARE ==
[2017-08-03 10:30] VITALS: BMI 26.4
[2017-08-03 10:34] VITALS: TEMP 98
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
[2017-08-03 12:08] VITALS: RESP 18; O2SAT 98
[2017-08-03 13:28] VITALS: BP 148/69; PULSE 89
== END 2017-08-03 14:10 | disposition home or self-care (01) ==
LOC: ED 09:58
DX: R04.0 Epistaxis (principal)

== ENCOUNTER 2017-09-02 12:10 | Inpatient (IN) | payer MEDICARE ==
[2017-09-02 12:13] VITALS: BMI 25.2
[2017-09-02] MEDS ORDERED: Aspirin 325 mg EC Tablets PO STA (12:38)
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
[2017-09-02 13:22] LABS: VENOUS BLOOD GAS BASE EXCESS 1.5 mmol/L (0.0-2.0); VENOUS BLOOD GAS PO2 56 mm/Hg (30-55); VENOUS BLOOD PH 7.36 (7.32-7.43)
[2017-09-02 13:26] LABS: ALT/SGPT 35 U/L (7-56); AST/SGOT 27 U/L (14-36); BLOOD UREA NITROGEN 12 mg/dL (7-21); CALCIUM 9.6 mg/dL (8.4-10.5); GFR AFRICAN-AMERICAN > 60; GFR NON-AFRICAN AMERICAN > 60
[2017-09-02] MEDS: Albuterol-Ipratrop 3 mg / 0.5 (3 ml) UD IH SCH ×3 (13:26→15:12)
[2017-09-02 13:27] LABS: BASO # 0.04 K/mm3 (0.0-2.0); BASO % 1.5 % (0.0-3.0); EOS # 0.1 (0.0-0.7); EOS % 2.3 % (1.5-5.0); GRAN # 1.22 (1.4-6.5); GRAN % 47.2 % (50.0-68.0); LYMPH # 0.9 (1.2-3.4); LYMPH % 35.1 % (22.0-35.0); MEAN CORPUSCULAR HGB CONC 28.4 g/dl (31.0-37.0); MEAN PLATELET VOLUME 9.9 fl (7.0-11.0); MONO # 0.4 (0.1-0.6); MONO % 13.9 % (1.0-6.0); RBC 3.19 10^6/uL (3.5-6.1); RED CELL DISTRIBUTION WIDTH 18.8 % (11.5-14.5)
[2017-09-02 13:29] LABS: WHITE BLOOD COUNT 2.6 10^3/ul (4.5-11.0)
[2017-09-02 13:30] LABS: HEMOGLOBIN 6.7 g/dL (12.0-16.0)
--- NOTE | 2017-09-02 13:32 | RAD ---
HISTORY: worsening shortness of breath COMPARISON: 05/03/2017. FINDINGS: LUNGS: There is dense consolidation in both lower lobes, worse on the right. PLEURA: Small pleural effusions, no pneumothorax apparent. CARDIOVASCULAR: Normal. OSSEOUS STRUCTURES: No significant abnormalities. VISUALIZED UPPER ABDOMEN: Normal. OTHER FINDINGS: None. IMPRESSION: Bilateral lower lobe consolidation and small pleural effusions, worse on the right.
[2017-09-02 13:38] LABS: B-TYPE NATRIURETIC PEPTIDE 3110 pg/mL (0-450); TROPONIN I 0.03 ng/mL
[2017-09-02 14:28] LABS: URINE BILIRUBIN NEGATIVE (NEGATIVE); URINE BLOOD NEGATIVE (NEGATIVE); URINE GLUCOSE (UA) NEGATIVE (NEGATIVE); URINE LEUKOCYTE ESTERASE TRACE Leu/uL (NEGATIVE); URINE NITRATE NEGATIVE (NEGATIVE); URINE PROTEIN NEGATIVE mg/dL (<30 mg/dL); URINE UROBILINOGEN 0.2 E.U./dL (<1 E.U./dL)
[2017-09-02 14:29] LABS: URINE APPEARANCE CLEAR (CLEAR); URINE COLOR YELLOW (YELLOW)
[2017-09-02 15:02] LABS: URINE BACTERIA NEG (NEG); URINE RBC 0 - 2 /hpf (0-2); URINE WBC 0 - 2 /hpf (0-6)
--- NOTE | 2017-09-02 15:46 | CARD ---
APPROVED REPORT EKG Measurement Heart [id number] <Conclusion> Sinus tachycardia Left axis deviation Right bundle branch block Abnormal ECG
[2017-09-02 17:12] LABS: VENOUS BLOOD GAS BASE EXCESS 4.6 mmol/L (0.0-2.0); VENOUS BLOOD GAS PO2 80 mm/Hg (30-55)
[2017-09-02] MEDS: Levalbuterol 0.63 MG/3 ML Inhal Soln UD IH SCH (20:00)
--- NOTE | 2017-09-02 21:09 | CP.PCM.PN ---
Subjective - Date & Time of Evaluation Date of Evaluation: 09/02/17 Time of Evaluation: 21:04 - Subjective Subjective: Patient was seen at bedside. Earlier nurse had called me and told that evnt had received lasix 60 IV at 1:30 pm,Lasix 80 mg PO 6;13 PM, receiving second unit of PRBC as she is severely anemic with Hgb 6.7. Has sinus tachycardia, is anxious and pulse ox is 93 % on 32 % VM,BP is 169/70. I had ordered Lasix 80 mg IV and xanax 0.25 mg PO at that time. Nurse called me again @ 21:57 and told that her pulse ox was 88% on 32% VM and patient was still congested , I had asked to keep her on 100 % NRM. I came and evaluated patient. She still has sob. Denies chest pain , nausea, sweating, palpitation. BP is 174/93 HR 135 / min, RR 24/min, pulse ox is 97 % on 100 % NRM. Medical record was reviewed. This 77 year old woman was admitted with one month duration of increasing shortness of breath, weakness, cough, swelling of both lower extremities. Has PMH of COPD,CHF,UTI, epistaxis, anemia, left hip fracture, blood transfusions, gastritis, depression, cardiac catheterization, cholecystectomy, coronary stent placement. Objective - Vital Signs/Intake and Output Vital Signs (last 24 hours): Temp Pulse Resp BP Pulse Ox 97.7 F 122 H 22 114/57 L 98 09/02/17 19:05 09/02/17 20:01 09/02/17 19:05 09/02/17 19:05 09/02/17 17:05 Intake and Output: 09/02/17 09/03/17 18:59 06:59 Intake Total 0 Balance 0 - Medications Medications: Current Medications Furosemide (Lasix) 80 mg PO BID [facility] Last Admin: 09/02/17 18:13 Dose: 80 mg Levalbuterol HCl (Xopenex) 0.63 mg IH TIDRESP [facility] Last Admin: 09/02/17 20:00 Dose: 0.63 mg Metoprolol Tartrate (Lopressor) 12.5 mg PO DAILY [facility] Pantoprazole Sodium (Protonix Ec Tab) 40 mg PO 0600 [facility] Spironolactone (Aldactone) 25 mg PO DIN ALEXANDRA - Constitutional Appears: Other (In mild respiratory distress.) - Head Exam Head Exam: ATRAUMATIC, NORMAL INSPECTION, NORMOCEPHALIC - Eye Exam Eye Exam: Normal appearance - ENT Exam ENT Exam: Mucous Membranes Moist - Neck Exam Neck Exam: Normal Inspection - Respiratory Exam Respiratory Exam: Rales (Basal rales bilaterally.), Wheezes (+), Respiratory Distress (Mild.). absent: Chest Wall Tenderness, Stridor - Cardiovascular Exam Cardiovascular Exam: Tachycardia - GI/Abdominal Exam GI & Abdominal Exam: absent: Distended - Rectal Exam Rectal Exam: Deferred - Exam Additional comments: Deferred. - Extremities Exam Extremities Exam: Pedal Edema (+++) - Back Exam Back Exam: NORMAL INSPECTION - Neurological Exam Neurological Exam: Alert, Awake, Oriented x3 - Psychiatric Exam Psychiatric exam: Anxious - Skin Skin Exam: Normal Color Assessment and Plan - Assessment and Plan (Free Text) Assessment: Severe anemia. CHF. Pulmonary edema. Hypoxia. Adjustment insomnia. Anxiety. HTN. CAD. Hx coronary stent placement. COPD. Gastritis. Depression. Plan: Lasix 100 mg IV stat. Morphine sulfate 4 mg IV stat. Continue 100 % oxygen by NRM. Benadryl 25 mg PO x 1. Nitropaste 0.5 Inch to chest wall. Continue present management as per PMD.
[2017-09-02] MEDS ORDERED: Levalbuterol 0.63 MG/3 ML Inhal Soln UD IH PRN (21:46)
[2017-09-02] MEDS ORDERED: Morphine 5 MG/ML SYRINGE IVP STA (23:15)
[2017-09-02] MEDS ORDERED: Nitroglycerin 2% Ointment Foilpak UD TOP STA (23:39)
[2017-09-03] MEDS ORDERED: Levalbuterol 1.25 MG/3 ML Inhal Soln UD IH STA (01:20)
[2017-09-03] MEDS ORDERED: Metoprolol 1 mg/ml Inj IVP ONE (01:20)
[2017-09-03] MEDS ORDERED: Digoxin 500 mcg/2ml (0.5 mg/2ml) Inj IVP STA (01:20)
[2017-09-03 02:29] VITALS: PULSE 103
--- NOTE | 2017-09-03 02:39 | CON ---
DATE: PULMONARY CONSULTATION REFERRING PHYSICIAN: Kristin Rg MD REASON FOR CONSULTATION: Chronic lung disease, sleep apnea syndrome, and severe anemia. HISTORY OF PRESENT ILLNESS: This is a 77-year-old female well known to me from previous admission, does not follow in the office, noncompliant, has multiple medical issues including cardiac diastolic dysfunction, pulmonary hypertension, sleep apnea syndrome, chronic lung disease, cryptogenic cirrhotic liver, ascites, lower extremity edema, diabetes, has recurrent epistaxis in the past, and severe aortic stenosis. She was seen couple of times in the ER with epistaxis seen by ENT as outpatient. Nasal bleeder was cauterized, now comes in feeling very weak, tired, and short of breath with exertion. No chest pain. No nausea, no vomiting. She has trace leg swelling. PAST MEDICAL HISTORY: As per history present illness. FAMILY HISTORY: No significant cardiopulmonary disease reported. SOCIAL HISTORY: Denied any smoking. Actually, stopped smoking many years ago. No alcohol abuse. ALLERGIES: NONE KNOWN. MEDICATIONS: She is on albuterol Atrovent nebulizer in the ER, also receive Ecotrin and Lasix 60 mg one dose was given. HOME MEDICATIONS: Aldactone, metoprolol, was on antibiotics Lasix. REVIEW OF SYSTEMS: No headache, no rhinitis. Get short of breath with mild cough. No nausea, no vomiting. No diarrhea. Positive leg swelling. PHYSICAL EXAMINATION: GENERAL: Lying in the bed, tired and sleepy. VITAL SIGNS: Temperature is 98, heart rate is 100, respiratory rate is 18, blood pressure is 126/89, and O2 sat 96% on room air. HEENT: Moist mucous membranes. Crowded airway. Mallampati score is IV. NECK: Supple. No JVD. LUNGS: Few crackles at the bases. Scattered rhonchi. HEART: S1 and S2. ABDOMEN: Soft and nontender, no organomegaly. EXTREMITIES: Does have edema. NEUROLOGIC: Awake. Does follow simple commands. LABORATORY DATA: Shows hemoglobin 6.7, hematocrit 23.6, WBC 2.6, and platelets are 141. showed pH 7.50, pCO2 is 36, and O2 is 80% this is on room air. Sodium 137, potassium 3.8, chloride 103, bicarbonate 25, BUN 12, creatinine 0.6, glucose 137, calcium 9.6, total bilirubin 2.1, AST 27, ALT 35, and alkaline phosphatase is 106. Troponin is 0.03. ProBNP is 3110. Albumin is 3.0. Urinalysis shows WBC 0-2, RBC 0-2. Influenza A and B is negative. Chest x-ray done today shows bilateral lower lobe consolidation and small pleural effusion. EKG shows sinus tachycardia and left axis deviation. IMPRESSION AND PLAN: Severe anemia, symptomatic with shortness of breath, feeling weak, guaiac has been negative, has a history of cardiomyopathy with pulmonary hypertension, severe aortic stenosis, sleep apnea syndrome, but refused to use CPAP, chronic lung disease, cryptogenic liver cirrhotic with recurrent ascites and lower extremity edema, history of recurrent nasal bleed with thrombocytopenia in the past. Spoke to ER physician. The patient being type and crossmatch and starting blood transfusion. We will re-do anemia workup including iron study, ferritin, B12, folate stool guaiac. Continue diuretics, inhaled bronchodilators. Follow up CBC. Thank you and we will follow with her. Pablo Cantor MD
[2017-09-03] MEDS: Pantoprazole 40 mg EC Tab PO SCH (06:15)
[2017-09-03 07:39] LABS: MEAN CELL VOLUME 78.5 fl (80.0-105.0); MEAN CORPUSCULAR HEMOGLOBIN 23.6 pg (25.0-35.0); MEAN PLATELET VOLUME 9.7 fl (7.0-11.0); RBC 3.86 10^6/uL (3.5-6.1); RED CELL DISTRIBUTION WIDTH 18.7 % (11.5-14.5); WHITE BLOOD COUNT 10.8 10^3/ul (4.5-11.0)
[2017-09-03 07:51] LABS: HEMOGLOBIN 9.1 g/dL (12.0-16.0)
[2017-09-03] MEDS: Levalbuterol 0.63 MG/3 ML Inhal Soln UD IH SCH ×3 (08:01→20:53)
[2017-09-03 08:28] LABS: ALB/GLOB RATIO 0.9 (1.1-1.8); ALBUMIN 2.9 g/dL (3.0-4.8); ALT/SGPT 23 U/L (7-56); AST/SGOT 41 U/L (14-36); BLOOD UREA NITROGEN 16 mg/dL (7-21); CALCIUM 9.2 mg/dL (8.4-10.5); GFR AFRICAN-AMERICAN > 60; GFR NON-AFRICAN AMERICAN 54
[2017-09-03 08:43] LABS: IRON 62 ug/dL (45-180)
[2017-09-03 08:53] LABS: % IRON SATURATION 16 % (20-55); TOTAL IRON BINDING CAPACITY 376 ug/dL (265-497)
[2017-09-03 17:28] LABS: FERRITIN 14.3 ng/mL
[2017-09-03] MEDS ORDERED: Iron Sucrose 100 mg/5 ml Inj IVP SCH (17:45)
[2017-09-03 19:37] LABS: B-TYPE NATRIURETIC PEPTIDE 11300 pg/mL (0-450)
--- NOTE | 2017-09-03 23:10 | CON ---
DATE: 09/03/2017 CARDIOLOGY CONSULTATION (DR. RUGGIERO) HISTORY: The patient is a 77-year-old woman, who presents with shortness of breath. She suffers from a history of CHF, COPD, and hypertension with documented aortic stenosis in the past. She also suffers from diabetes mellitus and hypertension. SOCIAL HISTORY AND REVIEW OF SYSTEMS: Unavailable today. PHYSICAL EXAMINATION: VITAL SIGNS: Blood pressure 106/60, heart rate is sinus tachycardia at 100. NECK: Negative JVD. LUNGS: Decreased breath sounds bilaterally. HEART: Reveals S1, S2 with 3/6 systolic ejection murmur. EXTREMITIES: Trace edema. LABORATORIES: Include an EKG that shows right bundle-branch block with left anterior hemiblock with nonspecific ST-T changes. The ProBNP is 3000. BUN and creatinine are 16 and 1.0. The potassium is 4.1. Hemoglobin is 9.1. IMPRESSION: 1. Acute systolic congestive heart failure. 2. Critical aortic stenosis. 3. Aortic insufficiency. 4. Anemia. 5. Dyspnea. 6. Chronic obstructive pulmonary disease. 7. Diabetes mellitus. Given these findings, I agree with IV Lasix at this time. In the morning, we will transfer the case back to Dr. Ruggiero. Decisions will need to be made whether the patient is a candidate for TAVR. Praveen Mata MD
--- NOTE | 2017-09-03 23:21 | PN ---
PULMONARY PROGRESS NOTE DATE: 09/03/2017 REFERRING PHYSICIAN: Kristin Rg MD SUBJECTIVE: She is lying in the bed, feels better, still nervous and have tremors. No headache, no rhinitis. Could not to sleep well last night. No nausea, no vomiting. No diarrhea. Has leg swelling. OBJECTIVE GENERAL: No acute distress. VITAL SIGNS: Temperature is 99, heart rate is 70, respiratory rate is 20, blood pressure 99/54 and pulse ox 90% on Venturi mask. HEENT: Moist mucous membrane. No ulcer or thrush noted. NECK: Supple. No JVD. LUNGS: Has a few crackles at the bases. Scattered rhonchi. HEART: S1 and S2 with loud murmur. ABDOMEN: Soft and nontender. No organomegaly. EXTREMITIES: Does have edema. NEUROLOGICALLY: Awake, alert and follows simple command. MEDICATIONS: She is on Aldactone 25 mg daily, Lasix 80 mg twice a day, metoprolol tartrate 12.5 mg daily, Protonix 40 mg daily and Xopenex inhaled q.8 hours. LABORATORY DATA: Shows hemoglobin 9.1, hematocrit 30.3, WBC 10.8 and platelet is 121. Sodium 140, potassium 4.1, chloride 102, bicarbonate 26, BUN 16, creatinine 1.0, glucose is 154 and calcium is 9.2. Ferritin is 14, total bili 3.48, AST 41, ALT 23 and alk phos is 93. ProBNP was 3110. Albumin is 2.9. Vitamin B12 and folate is pending. Influenza A and B have been negative. Urine culture has multiple organisms. IMPRESSION AND PLAN: Severe anemia, symptomatic shortness of breath requiring transfusion, has a iron-deficiency, history of severe epistaxis requiring cauterization recently, pulmonary hypertension, severe aortic stenosis, sleep apnea syndrome. Refused continuous positive airway pressure, chronic lung disease, cryptogenic cirrhosis, recurrent ascites and lower extremity edema. We will start IV iron, continue bronchodilator, continue diuretics. Gastric prophylaxis, sequential compression device to lower extremity. Thank you and we will follow with you. Pablo Cantor MD
--- NOTE | 2017-09-04 00:12 | PN ---
DATE: SUBJECTIVE: The patient is a 77-year-old female. The patient is seen and examined at the bedside, looking weak and lethargic; otherwise, awake and alert, and having her dinner. No fever. No chills. No nausea, vomiting, or diarrhea. No hematuria. No hematochezia. Still has swelling of the legs. PHYSICAL EXAMINATION: VITAL SIGNS: Temperature 99.4, pulse 112, blood pressure 99/54, and respiratory rate 18. HEENT: Head; normocephalic and atraumatic. Eyes; PERRLA. Extraocular muscles are intact. Conjunctivae are clear. Nose patent. Mucous membranes moist. NECK: Supple. No carotid bruits. No JVD or thyromegaly. CHEST: Bilaterally symmetrical. HEART: S1 and S2 positive. LUNGS: Clear to auscultation. ABDOMEN: Soft. Bowel sounds positive. No organomegaly. EXTREMITIES: Trace edema. NEUROLOGICAL: Awake, alert, and oriented x3. Obeying simple order. MEDICATIONS: Aldactone, iron, Lasix, Lopressor, Protonix, and Xopenex. LABORATORY DATA: White blood cell 10.8, yesterday it was 2.6; hemoglobin 9.1, yesterday it was 6.7; hematocrit 30.3; and platelets 121. Sodium 140, potassium 4.1, BUN 16, creatinine 1.0, random glucose 154, and bilirubin 3.4. ASSESSMENT AND PLAN: Ms. Killian is a 77-year-old female with history of leukopenia, improved and anemia, improved after two units of packed red blood cells; hyperglycemia; abnormal liver function test; urinary tract infection; and influenza type A and B negative. The patient has history of cardiac diastolic dysfunction, pulmonary hypertension, sleep apnea syndrome, chronic lung disease, cryptogenic liver, ascites, lower extremity edema, diabetes mellitus, history of repeat epistaxis, severe aortic stenosis, and at this time came with severe anemia, two units of packed red blood cell given, was symptomatic, having shortness of breath, feeling very fatigue and tired, stool guaiac negative, and history of cardiomyopathy. The patient is refusing continuous positive airway pressure. We will do anemia workup. Continue digoxin and inhaled bronchodilators. The patient is complaining of anxiety, Xanax given. Complaining of insomnia, seen by Dr. Mike. GI and DVT prophylaxis. Repeat labs. We will follow up. Kristin Rg MD MTDD
[2017-09-04 00:40] LABS: BLOOD UREA NITROGEN 16 mg/dL (7-21); CALCIUM 9.4 mg/dL (8.4-10.5); GFR AFRICAN-AMERICAN > 60; GFR NON-AFRICAN AMERICAN 54
--- NOTE | 2017-09-04 02:41 | CP.PCM.PN ---
Subjective - Date & Time of Evaluation Date of Evaluation: 09/04/17 Time of Evaluation: 02:41 - Subjective Subjective: Patient was seen at bedside. Complains of low back pain. States that she is having this pain since she had an accident last April. Denies numbness in lower extremities. No other complaints. 77 year old woman was admitted with one month duration of increasing shortness of breath, weakness, cough, swelling of both lower extremities. PMH of CHF,UTI, COPD, epistaxis, anemia, left hip fracture, blood transfusions , gastritis, depression, cardiac catheterization, cholecystectomy, coronary stent placement. Objective - Vital Signs/Intake and Output Vital Signs (last 24 hours): Temp Pulse Resp BP Pulse Ox 98.2 F 105 H 21 99/60 L 100 09/04/17 00:01 09/04/17 00:01 09/04/17 00:01 09/04/17 00:01 09/04/17 00:01 Intake and Output: 09/03/17 09/04/17 18:59 06:59 Intake Total 540 Output Total 400 Balance 140 - Medications Medications: Current Medications Alprazolam (Xanax) 0.25 mg PO DAILY PRN; Protocol PRN Reason: Anxiety Stop: 09/11/17 10:01 Last Admin: 09/03/17 21:42 Dose: 0.25 mg Benzonatate (Tessalon Perles) 100 mg PO TID [facility] Last Admin: 09/03/17 21:42 Dose: 100 mg Furosemide (Lasix) 80 mg PO BID [facility] Last Admin: 09/03/17 17:41 Dose: Not Given Iron Sucrose 100 mg/ Sodium (Chloride) 105 mls @ 210 mls/hr IV 1900 [facility] Stop: 09/05/17 19:29 Last Admin: 09/03/17 18:48 Dose: 210 mls/hr Levalbuterol HCl (Xopenex) 0.63 mg IH TIDRESP [facility] Last Admin: 09/03/17 20:53 Dose: 0.63 mg Levalbuterol HCl (Xopenex) 0.63 mg IH [id number] PRN PRN Reason: Shortness of Breath Metoprolol Tartrate (Lopressor) 12.5 mg PO DAILY [facility] Last Admin: 09/03/17 11:44 Dose: Not Given Pantoprazole Sodium (Protonix Ec Tab) 40 mg PO 0600 [facility] Last Admin: 09/03/17 06:15 Dose: 40 mg Spironolactone (Aldactone) 25 mg PO DIN [facility] Last Admin: 09/03/17 17:44 Dose: 25 mg - Labs Labs: 09/03/17 06:30 09/03/17 19:00 - Constitutional Appears: Well, No Acute Distress - Head Exam Head Exam: ATRAUMATIC, NORMAL INSPECTION, NORMOCEPHALIC - Eye Exam Eye Exam: Normal appearance - ENT Exam ENT Exam: Normal External Ear Exam - Neck Exam Neck Exam: Normal Inspection - Respiratory Exam Respiratory Exam: NORMAL BREATHING PATTERN Additional comments: 100 % NRM is on. - Cardiovascular Exam Cardiovascular Exam: absent: JVD - GI/Abdominal Exam GI & Abdominal Exam: absent: Distended - Rectal Exam Rectal Exam: Deferred - Exam Additional comments: Deferred. - Extremities Exam Extremities Exam: Normal Inspection - Back Exam Back Exam: NORMAL INSPECTION - Neurological Exam Neurological Exam: Alert, Awake - Psychiatric Exam Psychiatric exam: Normal Affect, Normal Mood - Skin Skin Exam: Normal Color Assessment and Plan - Assessment and Plan (Free Text) Assessment: Low back pain. COPD. CHF. Anemia. Left hip fracture. Depression. Plan: Tylenol 650 mg PO now. Continue present management as per PMD.
[2017-09-04] MEDS: Pantoprazole 40 mg EC Tab PO SCH (05:03)
[2017-09-04 06:37] LABS: MEAN CELL VOLUME 77.9 fl (80.0-105.0); MEAN CORPUSCULAR HEMOGLOBIN 23.5 pg (25.0-35.0); MEAN CORPUSCULAR HGB CONC 30.1 g/dl (31.0-37.0); MEAN PLATELET VOLUME 9.9 fl (7.0-11.0); RBC 3.07 10^6/uL (3.5-6.1); RED CELL DISTRIBUTION WIDTH 19.4 % (11.5-14.5); WHITE BLOOD COUNT 6.4 10^3/ul (4.5-11.0)
[2017-09-04 07:42] LABS: HEMOGLOBIN 7.2 g/dL (12.0-16.0)
[2017-09-04] MEDS: Levalbuterol 0.63 MG/3 ML Inhal Soln UD IH SCH ×3 (08:11→20:04)
--- NOTE | 2017-09-04 08:25 | HP ---
CHIEF COMPLAINT: Shortness of breath. HISTORY OF PRESENT ILLNESS: This patient is a 77-year-old female with past medical history of congestive heart failure, hypertension, cirrhosis of the liver, COPD, lower extremity edema, cellulitis, history of accident long time ago, non-insulin requiring diabetes mellitus, recurrent epistaxis, asthma, COPD, systolic murmur, cardiac stent 11 years ago came to the Emergency Department complaining of one month duration of worsening shortness of breath. The patient states that the past week her shortness of breath worsened, today she felt that she is weak, which prompting her to call EMS. The patient noticed that she had developed cough with clear sputum, noticed bilateral lower extremity swelling in the both feet. She has experiencing shortness of breath. No appetite. No fever. No chills. No sweats. No chest pain. No palpitation. No abdominal pain. No hematuria. No hematochezia. PAST MEDICAL HISTORY: COPD; epistaxis; diabetes mellitus; blood transfusion; cellulitis of the both lower extremities; recent left hip fracture, no surgery; gastritis; hiatal hernia and as above. FAMILY HISTORY: Father and mother noncontributory. HABITS: Never smoke. No drugs. No ethanal. ALLERGIES: THE PATIENT IS NOT ALLERGIC WITH ANY MEDICATIONS. HOME MEDICATIONS: Lasix, Aldactone, and Levaquin. REVIEW OF SYSTEMS: The patient seen and examined on the bed side, looking comfortable. No nausea, vomiting, or diarrhea. Coughing with shortness of breath. Has swelling of the legs. No headache. No dizziness. PHYSICAL EXAMINATION: VITAL SIGNS: Temperature 97.7, pulse 105, respirations of 21, and blood pressure of 121/61, pulse oximetry 99. HEENT: Head is normocephalic and atraumatic. Eyes; PERRLA. Extraocular muscles intact. Conjunctivae clear. Nose patent. Mucous membrane moist. NECK: Supple. No carotid bruits, JVD, or thyromegaly. CHEST: Bilaterally symmetrical. LUNGS: Positive wheezing bilaterally. HEART: S1 and S2 positive. ABDOMEN: Soft. Bowel sound present. No organomegaly. EXTREMITIES: Trace edema. No cyanosis. NEUROLOGIC: The patient is oriented x3. Cranial nerves II to XII are grossly intact. LABORATORY DATA: White blood cell 2.6, hemoglobin 6.7, hematocrit is 23.6, and platelets 141. Sodium 137, potassium 3.8, BUN 12, creatinine 0.6, and glucose 137. ASSESSMENT AND PLAN: This patieint is a 77-year-old lady with leukopenia; severe anemia, need blood transfusion; hyperglycemia; came with shortness of breath; and swelling of the leg. Doppler study of the legs done. Results are pending. Electrocardiogram, chest x-ray done. The patient had bilateral lower lobe consolidation and small pleural effusion worse on the right; history of cirrhosis of the liver; history of congestive heart failure; hypertension; chronic obstructive pulmonary disease; recurrent epistaxis; asthma; systolic murmur; cardiac stenting 11 years ago. We admitted the patient. Cardiology and Pulmonary consult called. Stool guaiac ordered to rule out gastrointestinal bleeding, type and crossed match, packed RBC. We started spirolactone, Lasix, metoprolol, Protonix, GI prophylaxis, and Xopenex. We will follow up. Kristin Rg MD MTDD
--- NOTE | 2017-09-04 08:52 | US ---
HISTORY: Leg pain and swelling. Evaluate for DVT PHYSICIAN(S): Praveen Augustine MD. TECHNIQUE: Duplex sonography and color-flow Doppler with graded compression were used to evaluate the deep venous systems of both lower extremities. The exam is very limited by edema. The tibial veins are not adequately seen. FINDINGS: The visualized deep venous systems of both lower extremities are sonographically normal and compressible. Normal wave forms and augmentation are seen. There is no sonographic evidence for deep venous thrombosis in the visualized segments of both lower extremities. IMPRESSION: No sonographic evidence for deep venous thrombosis in the visualized segments of both lower extremities. Very limited study. The tibial veins are not adequately seen.
[2017-09-04] MEDS ORDERED: Magnesium Hydroxide Susp 30 ml UD PO PRN (11:31)
--- NOTE | 2017-09-04 14:30 | PN ---
DATE: REASON FOR CONSULTATION AND FOLLOWUP: Shortness of breath, decompensated congestive heart failure, COPD, CHF, and severe aortic stenosis. SUBJECTIVE: The patient denies any chest pain, but complains of shortness of breath. OBJECTIVE: GENERAL: Not in apparent distress. VITAL SIGNS: As follows; temperature afebrile, heart rate 103, and blood pressure 102/58. HEENT: PERRLA. Extraocular muscles intact. NECK: Supple. No carotid bruits or thyromegaly. CHEST: Clear to auscultation. HEART: S1 and S2, regular. ABDOMEN: Soft. EXTREMITIES: Clubbing and cyanosis negative. LABORATORY DATA: Blood workup as follows; WBC 6.4, hemoglobin 7.2, hematocrit 23.9, and platelet count 83. Sodium 135, chloride 102, carbon dioxide 23, anion gap of 18, BUN 16, and creatinine 1.0. BNP 11,300. TSH 0.44. IMPRESSION: Decompensated congestive heart failure, thrombocytopenia, anemia, severe aortic stenosis status post percutaneous transluminal coronary angioplasty of right coronary artery in 04/2009, history of cryptogenic cirrhosis, ascites, chronic leg edema, initially opted for medical treatment,and Refused for transcatheter aortic valve replacement, protein-calorie malnutrition, deconditioning of body. Overall, the patient is very fragile, mild protein-calorie malnutrition, which was not present on admission. Discussed in length with the patient since Dr. Mata brought the patient for TAVR, she is not sure, she is very concerned about dying, we will talk with the son involved in the discussion, though the patient is very high risk because of underlying cirrhosis and severe thrombocytopenia and anemia. Without this, possibly the patient cannot tolerate well dual antiplatelet therapy, but we will discuss this issue with the son again. The patient is currently not on aspirin, not on Plavix, still she is dropping H and H and severe thrombocytopenia. It will be very difficult high risk for maintenance of aspirin and Plavix, but we will bring this issue to the son and if they agree for the high risk, we will proceed for cardiac catheterization and TAVR evaluation. We will discuss again with the patient and family. Thank you, Dr. Rg for providing us the opportunity in taking care of the patient, Maria D Sullivan. Pablo Guillermo MD ARACELI
--- NOTE | 2017-09-04 22:02 | PN ---
DATE: ADDENDUM REASON FOR DICTATION: Addendum for the initial progress note dictated this morning. REASON FOR ADDENDUM: I tried to reach the family, son, Timothy Sullivan, telephone number [phone], left the message twice about the patient's condition. The patient has severe aortic stenosis and severe anemia, cirrhosis, ascites, and thrombocytopenia that makes the situation very complex, though the patient is frail which is not a contraindication for TAVR because frailty is not contraindication for TAVR, but other comorbidity is definitely because if the patient survival is limited or if the patient's severe thrombocytopenia cannot tolerate dual antiplatelet therapy or also the patient is without any Plavix and aspirin, hemoglobin is so low, she can bleed, so needs GI and hematology workup and clearance before the patient goes for the TAVR. We will discuss with Dr. Rg. Again, the patient needs a clearance from GI and Hematology before go to the TAVR. Discuss briefly at [facility] about this. We will follow with you. Thank you Dr. Rg for providing us the opportunity in taking care of the patient, Maria D Sullivan. Pablo Guillermo MD
--- NOTE | 2017-09-04 23:35 | PN ---
DATE: SUBJECTIVE: The patient is a 77-year-old female, admitted in [facility], seen by me and my nurse practitioner, Nasreen; sleepy, arousable; complaining about gassy stomach and cannot move bowel, MOM ordered; then complaining about pain in the extremity, Tylenol one dose ordered. No nausea or vomiting. No fever. No chills. No headache. No dizziness. PHYSICAL EXAMINATION: VITAL SIGNS: Temperature 98.1, pulse 89, blood pressure 100/58, and respiratory rate 18. HEENT: Head, normocephalic and atraumatic. Eyes; PERRLA. Extraocular muscles intact. Conjunctivae clear. Nose patent. Mucous membranes moist. NECK: Supple. No carotid bruits, JVD, or thyromegaly. CHEST: Bilaterally symmetrical. HEART: S1 and S2 positive. LUNGS: Clear to auscultation. ABDOMEN: Soft. Bowel sounds present. No organomegaly. EXTREMITIES: No edema. No cyanosis. NEUROLOGIC: The patient is sleepy, but arousable. MEDICATIONS: Aldactone, Colace, Lopressor, milk of magnesia, Protonix, Tessalon Perles, Xanax, and Xopenex. LABORATORY DATA: White blood cell 6.4, Hemoglobin 7.2, hematocrit 23.9, and platelets 83. Sodium 139, potassium 4.1, BUN 15, creatinine 1.0, glucose 149. ASSESSMENT AND PLAN: Ms. Maria D Sullivan is a 77-year-old lady with leukocytosis, improved; anemia, came with hemoglobin of 6.7, two packed red blood cells given, hemoglobin went up to 9.1, now is dropped back to 7.2; thrombocytopenia; hyperglycemia; abnormal liver function test; has cirrhosis of the liver; BNP is high, has congestive heart failure; hyperalbuminemia; urinary tract infection. Stool occult negative. Influenza type A and B is negative. Seen by Dr. Guillermo, core cutter and reamer; and Dr. Cantor, desktop publisher. The patient has symptomatic anemia with shortness of breath, requiring blood transfusion, iron deficiency; history of several times epistaxis, requiring cauterization; pulmonary hypertension; severe aortic stenosis; sleep apnea syndrome, refusing BiPAP/CPAP; chronic obstructive pulmonary disease; recurrent ascites;lower extremity edema stasis dermatitis, started IV iron, continue bronchodilators, gastric prophylaxis, sequential compression devices to the lower extremity, gastrointestinal prophylaxis. Length of time discussion done with the nurse practitioner, Nasreen. We will follow up. Kristin Rg MD MTDD
--- NOTE | 2017-09-04 23:55 | PN ---
DATE: 09/04/2017 PULMONARY PROGRESS NOTE REFERRING PHYSICIAN: Dr. Rg. SUBJECTIVE: Patient is lying in the bed at 45 degrees, sleepy, arousable, feels better. Mild cough. No sputum production, no nausea, no vomiting. No diarrhea. No melena. No new leg pain or swelling. OBJECTIVE: GENERAL: No acute distress. VITAL SIGNS: Temperature is 98, heart rate is 89, respiratory rate is 18, blood pressure 100/58, pulse ox 100% on nasal cannula. HEENT: Moist mucous membranes. Crowded airway. Mallampati score is IV. NECK: Supple. No JVD. LUNGS: Has few scattered rhonchi. HEART: S1 and S2 with murmur. ABDOMEN: Soft and nontender. No organomegaly. EXTREMITIES: There is trace edema. NEUROLOGIC: Awake and follows simple command. MEDICATIONS: She is on Aldactone 25 mg daily, Colace 100 mg daily, IV iron sucrose daily, Lasix 50 mg twice a day, metoprolol tartrate 12.5 mg daily, milk of magnesia 30 mL daily, Protonix 40 mg daily, Tessalon Perles 100 mg three times a day, Xanax 0.25 mg daily p.r.n., Xopenex 0.63 p.o. daily p.r.n. LABORATORY DATA: Shows hemoglobin 7.2, hematocrit 23.9, WBC 6.4, platelet count is 83. Microbiology: Urine culture, there is multiple organisms, suggested repeating it. IMPRESSION AND PLAN: Severe anemia, requiring transfusion, has iron-deficiency, receiving intravenous iron; symptomatic shortness of breath; history of severe epistaxis, requiring cauterization of the nasal bleed; pulmonary hypertension; severe aortic stenosis; sleep apnea syndrome, refused continuous positive airway pressure; cryptogenic cirrhotic liver with ascites and leg swelling. Pulmonary point of view, doing okay. Continue IV iron, continue bronchodilator. 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 Cardiology followup. Sleep apnea precaution. Thank you and we will follow with you. Pablo Cantor MD
[2017-09-05] MEDS: Pantoprazole 40 mg EC Tab PO SCH (06:30)
[2017-09-05 06:54] LABS: MEAN CELL VOLUME 78.6 fl (80.0-105.0); MEAN CORPUSCULAR HEMOGLOBIN 23.8 pg (25.0-35.0); MEAN CORPUSCULAR HGB CONC 30.3 g/dl (31.0-37.0); MEAN PLATELET VOLUME 9.4 fl (7.0-11.0); RBC 3.32 10^6/uL (3.5-6.1); RED CELL DISTRIBUTION WIDTH 20.2 % (11.5-14.5)
[2017-09-05 07:25] LABS: ALB/GLOB RATIO 0.9 (1.1-1.8); ALBUMIN 2.5 g/dL (3.0-4.8); ALT/SGPT 30 U/L (7-56); AST/SGOT 28 U/L (14-36); BLOOD UREA NITROGEN 22 mg/dL (7-21); CALCIUM 8.6 mg/dL (8.4-10.5); GFR AFRICAN-AMERICAN > 60; GFR NON-AFRICAN AMERICAN > 60
[2017-09-05 07:48] LABS: HEMOGLOBIN 7.9 g/dL (12.0-16.0)
[2017-09-05] MEDS: Levalbuterol 0.63 MG/3 ML Inhal Soln UD IH SCH ×3 (08:07→21:24)
[2017-09-05] MEDS ORDERED: Potassium Chloride 20 mEq ER Tab PO ONE ×2 (09:35→15:00)
--- NOTE | 2017-09-05 15:06 | PN ---
DATE: 09/05/2017 REASON FOR CONSULTATION: Followup of shortness of breath, decompensated congestive heart failure, COPD, CHF, severe aortic stenosis, anemia, severe thrombocytopenia. SUBJECTIVE: The patient denies any chest pain, feel short of breath, not eating, very frail. OBJECTIVE: GENERAL: Not in apparent distress, lying flat. VITAL SIGNS: Temperature afebrile, heart rate 85, blood pressure 107/63. HEENT: PERRLA. Extraocular muscles intact. NECK: Supple. No carotid bruits or thyromegaly. CHEST: Clear to auscultation. HEART: S1 and S2. regular. ABDOMEN: Soft. EXTREMITIES: Clubbing and cyanosis negative. LABORATORY DATA: Blood workup as follows: WBC 5, hemoglobin 7.9, hematocrit 26.1, platelet count 76. Chemistry shows sodium 141, potassium 3, chloride 103, carbon dioxide 31, anion gap of 10, BUN 22, creatinine 0.8, total protein 5.4, albumin 2.5, albumin/globulin ratio 0.9, TSH 0.44. IMPRESSION: Moderate protein-calorie malnutrition which was not present on admission, hypokalemia, anemia, severe thrombocytopenia, severe aortic stenosis, cirrhosis, ascites, leg edema, history of coronary artery disease, status post percutaneous transluminal coronary angioplasty of right coronary artery in 04/2009. Admitting hemoglobin 6.7, 2 units of packed RBCs, now is 7.9. These symptoms are attributable secondary to the anemia, severe aortic stenosis. Tried to reach son iTmothy Sullivan to explain the patient's condition patient refuses transcatheter aortic valve replacement evaluation by her and niece who takes care of her. We will try to reach again the son this morning. I telephoned [phone]. I had discussion with transcatheter aortic valve replacement, though the patient is very frail, but could be considered as transcatheter aortic valve replacement, but underlying comorbidity with severe anemia and thrombocytopenia, that precludes because the patient is on dual antiplatelet therapy and dropping H and H without any aspirin and Plavix, and when the patient will get transcatheter aortic valve replacement and dual antiplatelet therapy on board will be more detrimental. We will discuss with you, and if the patient considers transcatheter aortic valve replacement, needs GI and Hematology workup before. We will discuss it with you. Thank you, Dr. Rg for the opportunity in taking care of the patient, Maria D Sullivan. In the interim, we will continue to treat congestive heart failure, continue diuretics, the patient is on 80 mg p.o. b.i.d., continue low-dose beta-kirby, supplement aggressively magnesium, potassium, electrolytes, p.r.n. hemoglobin packed RBCs transfusion if it goes below 8. We will follow with you and monitor with you. We will put some spironolactone 25 mg b.i.d. and supplement potassium. We will give 40 K-Dur now and another 40 at 3 p.m. Pablo Guillermo MD
--- NOTE | 2017-09-05 23:13 | PN ---
DATE: SUBJECTIVE: The patient is a 77-year-old female. The patient is seen and examined at the bedside, looking comfortable, sleepy, arousable, moving all 4 extremities, obeying simple orders. No nausea, vomiting, or diarrhea. No hematuria. No hematochezia. No headache. No dizziness. No chest pain. No palpitation. No fever. No chills. PHYSICAL EXAMINATION: VITAL SIGNS: Temperature 98.4, pulse 82, blood pressure 115/65, and respiratory rate 18. HEENT: Head; normocephalic and atraumatic. Eyes; PERRLA. Extraocular muscles are intact. Conjunctivae clear. Nose patent. Mucous membranes moist. NECK: Supple. No carotid bruits. No JVD or thyromegaly. CHEST: Bilaterally symmetrical. HEART: S1 and S2 positive. LUNGS: Clear to auscultation. ABDOMEN: Soft. Bowel sounds positive. No organomegaly. EXTREMITIES: Trace edema. NEUROLOGICAL: The patient is sleepy, moving all 4 extremities. No focal deficits. MEDICATIONS: Aldactone, Colace, Lasix, Lopressor, milk of magnesia, Protonix, benzoate, Xanax, and Xopenex. LABORATORY DATA: White blood cell 5.0, hemoglobin 7.1, hematocrit 26.1, and platelets 76. Sodium 141, potassium 3.0, BUN 22, creatinine 0.8, and bilirubin 1.9. ASSESSMENT AND PLAN: Ms. Maria D Sullivan is 77-year-old lady with anemia, getting iron infusion, thrombocytopenia, history of pancytopenia, hypokalemia, got replacement, abnormal liver function test, urinary tract infection, history of cirrhosis of the liver, multiple time epistaxis status post cauterization, status post blood transfusion, pulmonary hypertension, severe aortic stenosis, sleep apnea syndrome, refused continuous positive airway pressure, history of ascites, multiple times stasis dermatitis of the legs. Continue iron infusion and bronchodilator. Monitoring hemoglobin and hematocrit, diuretics, afterload reduction. Sleep apnea precautions, out of bed, Physical Therapy. The patient need rehab. We will follow up. Kristin Rg MD [facility] # [id number]
--- NOTE | 2017-09-06 00:28 | PN ---
PULMONARY PROGRESS NOTE DATE: 09/05/2017 REFERRING PHYSICIAN: Kristin Rg MD SUBJECTIVE: She is lying in the bed, sleeping on and off, and complaining with some cough. No nausea. No vomiting. No diarrhea. Trace leg swelling. OBJECTIVE: GENERAL: In no acute distress. VITAL SIGNS: Temperature is 98, heart rate is 75, respiratory rate is 18, blood pressure is 115/65, and pulse ox is 97% on nasal cannula. HEENT: Moist mucous membrane. Crowded airway. NECK: Supple. No JVD. LUNGS: Has a few crackles at the bases. Scattered rhonchi. HEART: S1 and S2. ABDOMEN: Soft, nontender, and nondistended. EXTREMITIES: Does have trace edema. NEUROLOGICAL: Awake, alert, and follows simple command. MEDICATIONS: She is on Aldactone 25 mg twice a day, Colace 100 mg daily, Lasix 80 mg twice a day, metoprolol tartrate 12.5 mg daily, Protonix 40 mg daily, Tessalon Perles 100 mg three times a day, Tylenol p.r.n., which is 325 mg q.6 hours, Xanax 0.25 mg daily p.r.n, and Xopenex inhaled q.8 hours. LABORATORY DATA: Shows hemoglobin 7.9, hematocrit 26.1, WBC 5.0, and platelet is 76. Sodium 141, potassium 3.0, chloride 103, bicarbonate 31, BUN 22, creatinine 0.8, glucose 100, and calcium is 8.6. AST 28, ALT 30 and alk phos is 76. Albumin is 2.5. TSH 0.44. Influenza A and B have been negative. IMPRESSION AND PLAN: Anemia requiring transfusion,iron-deficiency, chronic obstructive lung disease, severe cardiomyopathy with aortic stenosis, pulmonary hypertension, chronic lung disease, may have sleep apnea syndrome, refuse to use continuous positive airway pressure, cryptogenic cirrhosis, and leg swelling. Pulmonary point of view, doing okay. Continue bronchodilator. Keep head at 45 degrees. Continue diuretics, potassium. Follow up labs in the morning, out of bed to chair, and physical therapy. Thank you and we will follow with you. Mohammad Sakshi, MD
[2017-09-06] MEDS: Pantoprazole 40 mg EC Tab PO SCH (05:41)
[2017-09-06 06:46] LABS: BASO # 0.02 K/mm3 (0.0-2.0); BASO % 0.3 % (0.0-3.0); EOS # 0.3 (0.0-0.7); EOS % 3.6 % (1.5-5.0); GRAN # 4.54 (1.4-6.5); GRAN % 65.1 % (50.0-68.0); HEMOGLOBIN 8.9 g/dL (12.0-16.0); LYMPH # 1.3 (1.2-3.4); LYMPH % 18.5 % (22.0-35.0); MEAN CELL VOLUME 80.3 fl (80.0-105.0); MEAN CORPUSCULAR HEMOGLOBIN 23.1 pg (25.0-35.0); MEAN CORPUSCULAR HGB CONC 28.7 g/dl (31.0-37.0); MEAN PLATELET VOLUME 9.5 fl (7.0-11.0); MONO # 0.9 (0.1-0.6); MONO % 12.5 % (1.0-6.0); RBC 3.86 10^6/uL (3.5-6.1); RED CELL DISTRIBUTION WIDTH 21.7 % (11.5-14.5)
[2017-09-06 07:08] LABS: ALB/GLOB RATIO 0.9 (1.1-1.8); ALBUMIN 2.7 g/dL (3.0-4.8); ALT/SGPT 30 U/L (7-56); AST/SGOT 26 U/L (14-36); BLOOD UREA NITROGEN 17 mg/dL (7-21); GFR AFRICAN-AMERICAN > 60; GFR NON-AFRICAN AMERICAN > 60; MAGNESIUM 1.6 mg/dL (1.7-2.2)
[2017-09-06] MEDS: Levalbuterol 0.63 MG/3 ML Inhal Soln UD IH SCH ×3 (08:07→21:30)
[2017-09-06] MEDS ORDERED: Magnesium Sulfate 2 GM in Sodium Chloride 0.9% 100 ML IVPB ONE (09:59)
[2017-09-06] MEDS: Potassium & Sodium Phosphate PO SCH ×3 (13:39→18:59)
[2017-09-06] MEDS: Magnesium Oxide 400 mg Tab UD PO SCH ×2 (13:39→18:58)
--- NOTE | 2017-09-06 14:39 | PN ---
DATE: 09/06/2017 REASON FOR CONSULTATION: Followup of shortness of breath, decompensated congestive heart failure, COPD, CHF, severe aortic stenosis, anemia, severe thrombocytopenia, multiple epistaxis. SUBJECTIVE: The patient denies any chest pain, complained of shortness of breath, not eating, very frail. OBJECTIVE: GENERAL: Mild short of breath, lying flat, on face mask. VITAL SIGNS: As follows, temperature is afebrile, heart rate 85, blood pressure 105/59. HEENT: PERRLA. Extraocular muscles intact. NECK: Supple. No carotid bruits or thyromegaly. CHEST: Decreased air entry at the bases. aortic stenosis. ABDOMEN: Soft, ascites. EXTREMITIES: 1+ pedal edema. LABORATORY DATA: Blood workup as follows: WBC 7, hemoglobin 8.9, hematocrit 31.0, platelet count 99. Chemistry shows sodium 140, potassium 3.5, chloride 99, carbon dioxide 33, anion gap of 14, BUN 17, creatinine 0.7, magnesium 1.6, phosphorous 2.2, total , albumin 2.7, albumin/globulin ratio 0.9. IMPRESSION: Protein-calorie malnutrition, this was not present on admission; multiple electrolytes abnormality including hypomagnesemia, hypophosphatemia, hypokalemia, anemia, severe thrombocytopenia, ascites, cirrhosis, leg edema, severe aortic stenosis, history of coronary artery disease, status percutaneous transluminal coronary angioplasty of right coronary artery in 04/2009. A very frail patient with multiple comorbidities, not a good candidate for transcatheter aortic valve replacement because of without any platelet, the patient has multiple epistaxis and low hemoglobin, multiple transfusions, probably patient cannot tolerate dual antiplatelet therapy. Discussed yesterday with son, named Mely Sullivan on telephone number, . Will again call other son named Timothy Sullivan, left a message, . I will try to reach and explain the patient's condition. In broader perspective, put together, everything, patient's condition, aortic stenosis, anemia, thrombocytopenia, probably we will treat the patient medically. We will inform the patient and discuss with you. Increase nutritional support. Continue Lasix. Continue to supplement potassium and magnesium. We will follow with you. Thank you, Dr. Rg for providing the opportunity in taking care of the patient, Maria D Sullivan. Pablo Guillermo MD
--- NOTE | 2017-09-06 18:39 | PN ---
DATE: 09/06/2017 PULMONARY PROGRESS NOTE REFERRING PHYSICIAN: Dr. Rg. SUBJECTIVE: She is lying in the bed, nebulizer treatment. Complaining with short of breath and cough. No nausea. No vomiting. No diarrhea. Does have leg swelling. OBJECTIVE: GENERAL: In no acute distress. VITAL SIGNS: Temperature is 98, heart rate is 71, respiratory rate is 20, blood pressure is 103/58, and pulse ox is 98% on nasal cannula. HEENT: Moist mucous membrane. Crowded airway. NECK: Supple. No JVD. LUNGS: Has a few scattered rhonchi. No wheezing. HEART: S1 and S2. ABDOMEN: Soft, nontender. No organomegaly. EXTREMITIES: Trace edema. NEUROLOGICAL: Awake, alert, and follows simple command. MEDICATIONS: She is on Aldactone 25 mg twice a day, Colace 100 mg daily, Lasix 80 mg twice a day, metoprolol tartrate 12.5 mg daily, mag oxide 400 mg twice a day, milk of magnesia 30 mL p.o. daily p.r.n., Neutra-Phos one pack three times a day, Tessalon Perles 100 mg three times a day, Tylenol p.r.n., Xanax 0.25 mg daily p.r.n., and Xopenex p.r.n. LABORATORY DATA: Shows hemoglobin 8.9, hematocrit 31.0, WBC 7.0, platelet is 99. Sodium 140, potassium 3.5, chloride 99, bicarbonate 33, BUN 17, creatinine 0.7, glucose 100, calcium is 9.0, phosphorus 2.2, magnesium 1.6, AST 26, ALT 30, alkaline phosphatase is 92. Albumin is 2.7. Microbiology: Urine culture has multiple species. IMPRESSION AND PLAN: Anemia requiring transfusion, iron-deficiency on IV iron, chronic obstructive lung disease, severe cardiomyopathy with aortic stenosis, pulmonary hypertension, chronic lung disease, may have sleep apnea syndrome, refused continuous positive airway pressure, also chronic lung disease, cryptogenic liver cirrhosis, portal hypertension, leg swelling. Pulmonary point of view, doing okay. We will add Solu-Medrol 20 mg q. 12 hours. Continue nebulizer treatment. 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 Follow up labs in the morning. Thank you and we will follow with you. Pablo Cantor MD [facility] # [id number]
[2017-09-06] MEDS: MethylPREDNISolone 40 mg Vial IVP SCH (23:10)
[2017-09-07] MEDS: Pantoprazole 40 mg EC Tab PO SCH (06:45)
[2017-09-07] MEDS: Levalbuterol 0.63 MG/3 ML Inhal Soln UD IH SCH ×3 (07:26→21:08)
[2017-09-07] MEDS: Magnesium Oxide 400 mg Tab UD PO SCH ×2 (10:03→17:53)
[2017-09-07] MEDS: MethylPREDNISolone 40 mg Vial IVP SCH (10:03)
[2017-09-07] MEDS: Potassium & Sodium Phosphate PO SCH ×3 (10:04→17:54)
--- NOTE | 2017-09-07 10:04 | PN ---
DATE: 09/06/2017 SUBJECTIVE: Patient is 77-year-old female. Patient is seen and examined at bedside, sitting on the chair, feeling little bit better, still coughing with shortness of breath. With coughing, getting chest pain. No nausea, vomiting, or diarrhea. No hematochezia. Swelling of the leg is better. No headache. No dizziness. PHYSICAL EXAMINATION: VITAL SIGNS: Temperature is 98, heart rate is 71, respiratory rate 20, blood pressure 110/50, and pulse oximetry is 98% on nasal cannula. HEENT: Head is normocephalic, atraumatic. Eyes: PERRLA. Extraocular muscles are intact. Conjunctivae clear. Nose patent. Mucous membranes are moist. NECK: Supple. No carotid bruits, JVD, or thyromegaly. CHEST: Bilaterally symmetrical. HEART: S1 and S2 positive. LUNGS: Clear to auscultation. ABDOMEN: Soft. Bowel sounds present. No organomegaly. EXTREMITIES: Trace edema. NEUROLOGIC: Awake, alert. Follows simple commands. Moving all four extremities. MEDICATIONS: Aldactone, Colace, Lasix, metoprolol, magnesium oxide, milk of magnesia, Neutra-Phos, Tessalon Perles, Tylenol, Xanax, Xopenex. LABORATORY DATA: Hemoglobin 8.9, hematocrit 31.0, white blood cells 7.0, platelets 99. Sodium 140, potassium 3.5, BUN 70, creatinine 0.7, AST 23, ALT 30. ASSESSMENT AND PLAN: 77-year-old lady with anemia requiring transfusion, iron deficiency on intravenous Venofer, history of aortic stenosis, getting shortness of breath. Length of time discussion done with Dr. Guillermo, and Dr. Guillermo had discussion done with the patient's two sons about patient's surgery, actually she needs transcatheter aortic valve replacement, and couple of years ago transcatheter aortic valve replacement was offered to the patient and the family, they refused. Now patient has anemia, thrombocytopenia, but still Dr. Guillermo is talking to the family. Chronic obstructive lung disease, severe cardiomyopathy, pulmonary hypertension, sleep apnea syndrome, history of cellulitis of the leg, refused continuous positive airway pressure for sleep apnea, cryptogenic liver cirrhosis, portal hypertension, depression, degenerative joint disease. Dr. Cantor added Solu-medrol, continue nebulizer treatment, intravenous iron, diuretics, afterload reduction, out of bed, physical therapy, talk to the Inbound Sales Representative about discharge planning and rehabilitation. We will follow up. Kristin Rg MD [facility]
--- NOTE | 2017-09-07 21:21 | PN ---
DATE: 09/07/2017 PULMONARY PROGRESS NOTE REFERRING PHYSICIAN: Kristin Rg MD. SUBJECTIVE: The patient is lying in bed, much more awake and alert, feels much better. Mild cough. No chest pain. No nausea. No vomiting. No diarrhea. No leg pain or leg swelling. PHYSICAL EXAMINATION: GENERAL: In no acute distress. VITAL SIGNS: Temp is 98, heart rate is 78, respiratory rate is 18, blood pressure 104/53, pulse ox 98% on nasal cannula. HEENT: Moist mucous membrane. No ulcer or thrush noted. NECK: Supple. No JVD. LUNGS: Have a few scattered rhonchi. HEART: S1 and S2. Loud murmur. ABDOMEN: Soft, nontender. No organomegaly. EXTREMITIES: Have trace edema. NEUROLOGICAL: Awake and alert. Follows simple command. MEDICATIONS: She is on Aldactone 25 mg twice a day, Colace 100 mg twice a day, Lasix 80 mg twice a day, metoprolol tartrate 12.5 mg daily, mag oxide 40 mg twice a day, milk of magnesia 30 mL daily p.r.n., on Neutra-Phos 1 pack three times a day, Protonix 40 mg daily, Solu-Medrol 20 mg q. 12 hours, Tessalon Perles 100 mg three times a day, Tylenol p.r.n., Xanax 0.25 mg p.r.n., Xopenex p.r.n., Zithromax 500 mg daily. LABORATORY DATA: Shows hemoglobin 8.9, hematocrit 31.1. Urine culture is no growth. IMPRESSION AND PLAN: Anemia requiring transfusion; iron deficiency, on IV iron; chronic obstructive lung disease; severe cardiomyopathy with aortic stenosis; pulmonary hypertension; chronic lung disease; may have sleep apnea syndrome, does not use continuous positive airway pressure; claustrophobic; refused to take Zithromax yesterday; has a chronic lung disease; cryptogenic cirrhosis; portal hypertension; leg swelling. I had a long discussion with the patient about disease process and she need to be compliant with the medications. She expressed underlying and will use the medications. We will do followup CBC, CMP in the morning. Get physical therapy. Out of bed to chair. Thank you and we will follow with you. Pablo Cantor MD
--- NOTE | 2017-09-07 22:15 | PN ---
DATE: REASON FOR CONSULTATION: Followup shortness of breath, decompensated congestive heart failure, COPD, CHF, severe aortic stenosis, anemia, severe thrombocytopenia, multiple epistaxis episodes in the past. SUBJECTIVE: The patient denies any chest pain, feels better. OBJECTIVE: GENERAL: Not in apparent distress, lying flat in the bed. VITAL SIGNS: Temperature is afebrile, heart rate 76, blood pressure 112/60. HEENT: PERRLA. Extraocular muscles intact. NECK: Supple. No carotid bruits or thyromegaly. CHEST: Clear to auscultation. HEART: S1 and S2 regular. ABDOMEN: Soft. EXTREMITIES: Clubbing and cyanosis negative. LABORATORY DATA: Blood workup as follows, WBC 7, hemoglobin 8.9, hematocrit 31.0, platelet count 99. Chemistry shows sodium 140, potassium 3.5, chloride 99, CO2 of 33, anion gap of 11, BUN 17, creatinine 0.7, total protein 5.7, albumin 2.7, albumin/globulin ratio 0.9. IMPRESSION: Protein-calorie malnutrition which was not present on admission; multiple electrolytes abnormality including hypomagnesemia, hypophosphatemia, hypokalemia, improving; anemia, severe thrombocytopenia, ascites, cirrhosis, leg edema, severe aortic stenosis, history of coronary artery disease, status percutaneous transluminal angioplasty in 04/2009. Discussed with both sons, Mely Sullivan and Timothy Sullivan in the telephone in length, telephone number of Mely Sullivan is [phone] and Timothy Sullivan is [phone], explaining the patient's condition, frailty and multiple comorbidity, not a candidate for transcatheter aortic valve replacement, we will treat medically. We will discuss with you. Supplement electrolytes. We will follow with you. We will repeat the blood workup in the morning.today's lab is not available. Thank you Dr. Rg for providing the opportunity in taking care of the patient, Maria D Sullivan. Pablo Guillermo MD [facility]
[2017-09-08] MEDS: Pantoprazole 40 mg EC Tab PO SCH (06:28)
[2017-09-08 06:47] LABS: EOS % 0.3 % (1.5-5.0); GRAN # 4.72 (1.4-6.5); GRAN % 69.7 % (50.0-68.0); HEMOGLOBIN 8.8 g/dL (12.0-16.0); LYMPH # 1.1 (1.2-3.4); LYMPH % 15.5 % (22.0-35.0); MEAN CELL VOLUME 82.2 fl (80.0-105.0); MEAN CORPUSCULAR HEMOGLOBIN 23.7 pg (25.0-35.0); MEAN CORPUSCULAR HGB CONC 28.9 g/dl (31.0-37.0); MEAN PLATELET VOLUME 9.8 fl (7.0-11.0); MONO % 14.5 % (1.0-6.0); RBC 3.71 10^6/uL (3.5-6.1); RED CELL DISTRIBUTION WIDTH 24.4 % (11.5-14.5); WHITE BLOOD COUNT 6.8 10^3/ul (4.5-11.0)
[2017-09-08 07:02] LABS: ALB/GLOB RATIO 0.9 (1.1-1.8); ALBUMIN 2.6 g/dL (3.0-4.8); ALT/SGPT 35 U/L (7-56); AST/SGOT 23 U/L (14-36); BLOOD UREA NITROGEN 28 mg/dL (7-21); CALCIUM 9.2 mg/dL (8.4-10.5); GFR AFRICAN-AMERICAN > 60; GFR NON-AFRICAN AMERICAN > 60; MAGNESIUM 2.2 mg/dL (1.7-2.2)
[2017-09-08] MEDS: Levalbuterol 0.63 MG/3 ML Inhal Soln UD IH SCH ×3 (08:00→20:53)
--- NOTE | 2017-09-08 09:05 | PN ---
DATE: 09/07/2017 SUBJECTIVE: The patient is a 77-year-old female. The patient is seen and examined on the bedside, looking comfortable, getting better. Mild coughing. No chest pain. No shortness of breath. No nausea, vomiting, diarrhea. Swelling of the leg is getting better. More alert and awake. PHYSICAL EXAMINATION VITAL SIGNS: Temperature 98.1, heart rate 70, respiratory rate 18, blood pressure 110/50, pulse oximetry of 98% on nasal cannula. HEENT: Head normocephalic, atraumatic. Eyes PERRLA. Extraocular muscles are intact. Conjunctivae clear. Nose patent. Mucous membrane moist. NECK: Supple. No carotid bruit. No JVD or thyromegaly. CHEST: Bilaterally symmetrical. HEART: S1 and S2 positive. LUNGS: Clear to auscultation. ABDOMEN: Soft. Bowel sounds positive. No organomegaly. EXTREMITIES: No edema. No cyanosis. NEUROLOGICAL: The patient is awake and alert. Moving all 4 extremities. No focal deficits. LABORATORY DATA: Hemoglobin 8.9, hematocrit 31.1. Urine cultures no growth. We do not have recent lab today, but I reviewed old labs. MEDICATIONS: Aldactone, Colace, Lasix, metoprolol, milk of magnesia, Neutra-Phos, Protonix, Solu-Medrol, Tessalon Perles, Tylenol, Xanax, Xopenex, Zithromax. ASSESSMENT AND PLAN: Ms. Maria D Sullivan, 77-year-old lady with multiple medical problems, has pancytopenia; severe anemia requiring transfusion; iron deficiency, on IV iron; chronic obstructive pulmonary disease; severe cardiomyopathy with aortic stenosis, Dr. Guillermo spoke to the patient's 2 sons about the surgery plan; pulmonary hypertension; cirrhosis of the liver; history of multiple time epistaxis, status post cauterization of the nasal vessels; history of stasis dermatitis of the extremities; not want to use continuous positive pressure; claustrophobic; history of hypertension. The patient is noncompliant. Urged to be compliant. Discussion done with her about her aortic stenosis surgery plan, transcatheter aortic valve replacement and about to be compliant with bilevel positive airway pressure. She understands that. Physical therapy. She needs rehab. We will repeat labs. Kristin Rg MD
[2017-09-08] MEDS: MethylPREDNISolone 40 mg Vial IVP SCH (10:30)
--- NOTE | 2017-09-08 19:39 | PN ---
DATE: REASON FOR THE CONSULTATION: Followup shortness of breath, decompensated congestive heart failure, COPD, CHF, severe aortic stenosis, anemia, severe thrombocytopenia, multiple epistaxis episodes in the past. SUBJECTIVE: Patient denies any chest pain, shortness of breath improving. OBJECTIVE: GENERAL: Not in apparent distress. VITAL SIGNS: Temperature afebrile, heart rate 76, blood pressure 105/53. HEENT: PERRLA. Extraocular muscles intact. NECK: Supple. No carotid bruits or thyromegaly. CHEST: Clear to auscultation. HEART: S1 and S2 regular. ABDOMEN: Soft. EXTREMITIES: Clubbing and cyanosis negative. LABORATORY DATA: Blood workup as follows, WBC 6.8, hemoglobin 8.8, hematocrit 30.5, platelet count 124. Chemistry shows sodium 141, potassium 4, chloride 97, bicarbonate 34, anion gap of 14, BUN 28, creatinine 0.9, total protein 5.6, albumin 2.6, albumin/globulin ratio 0.9. IMPRESSION: Protein-calorie malnutrition, cirrhosis, anemia, thrombocytopenia, epistaxis, severe aortic stenosis, ascites, frailty, decompensated congestive heart failure, severe aortic stenosis. RECOMMENDATION: Continue medical treatment at this time. Discussed with both sons. History of anemia and pancytopenia will be more detrimental for invasive cardiac workup. Patient cannot tolerate dual antiplatelet therapy, we will treat medically. I spoke to both sons, Timothy Sullivan and Mely Sullivan. Discussed with you also. Thank you Dr. Rg for providing the opportunity in taking care of Laurie Killian. Pablo Guillermo MD
--- NOTE | 2017-09-08 23:03 | PN ---
DATE: 09/08/2017 PULMONARY PROGRESS NOTE REFERRING PHYSICIAN: Kristin Rg MD SUBJECTIVE: She is out of bed to chair, feels better. No headache, no rhinitis. Breathing is better. No nausea, no vomiting, no diarrhea. Trace leg swelling. OBJECTIVE: GENERAL: No acute distress. VITAL SIGNS: Temperature is 98, heart rate is 75, respiratory rate is 20, blood pressure 99/51, pulse ox 98% on nasal cannula. HEENT: Moist mucous membranes. Crowded airway. Mallampati score is 4. NECK: Supple. No JVD. LUNGS: Have a few scattered rhonchi. HEART: S1, S2. ABDOMEN: Soft, nontender, no organomegaly. EXTREMITIES: Trace edema. NEUROLOGIC: Awake and alert. Follows simple command. MEDICATIONS: She is on Aldactone 25 mg twice a day, Colace 100 mg daily, Lasix 80 mg twice a day, metoprolol tartrate 12.5 mg daily, milk of magnesia 30 mL daily, Protonix 40 mg daily, Solu-Medrol 20 mg daily, Tessalon Perles 100 mg three times a day, Tylenol p.r.n. basis, Xanax 0.25 mg daily p.r.n., Xopenex inhaled three times a day, Zithromax 500 mg daily. LABORATORY DATA: Shows hemoglobin 8.8, hematocrit 30.5, WBC 6.8, platelet is 124. Sodium 141, potassium 4.0, chloride 97, bicarbonate 34, BUN 28, creatinine 0.9, glucose 111, calcium is 9.2, magnesium is 2.2, AST 23, ALT 35, alk phos is 81. Albumin is 2.6. IMPRESSION: 1. Anemia requiring transfusion - iron deficiency. Getting IV iron. 2. Chronic obstructive lung disease. 3. Severe cardiomyopathy with aortic stenosis. 4. Pulmonary hypertension. 5. Chronic lung disease, may have sleep apnea syndrome. Refused to use CPAP, claustrophobic. 6. Cryptogenic cirrhosis. 7. Portal hypertension. 8. Leg swelling. PLAN: From a pulmonary point of view, doing little better. Continue IV and inhaled bronchodilator. Continue antibiotics. Keep at 45 degrees. Continue diuretics. Gastric prophylaxis, SCDs to lower extremity. High risk of thromboembolic disease, could not anticoagulate with history of thrombocytopenia. Thank you and we will follow with you. Pablo Cantor MD [facility] # [id number]
[2017-09-09] MEDS: Pantoprazole 40 mg EC Tab PO SCH (06:05)
[2017-09-09] MEDS: Levalbuterol 0.63 MG/3 ML Inhal Soln UD IH SCH ×3 (07:49→21:26)
[2017-09-09] MEDS: MethylPREDNISolone 40 mg Vial IVP SCH (10:33)
--- NOTE | 2017-09-09 12:50 | PN ---
DATE: REASON FOR CONSULTATION AND FOLLOWUP: Shortness of breath, decompensated congestive heart failure, COPD, CHF, severe aortic stenosis, anemia, severe thrombocytopenia, multiple epistaxis in the past. SUBJECTIVE: Patient denies any chest pain. Feels pain at coccyx area . OBJECTIVE GENERAL: Not in any apparent distress. VITAL SIGNS: Temperature afebrile, heart rate 79, blood pressure 102/51. HEENT: PERRLA. Extraocular muscles intact. NECK: Supple. No carotid bruit. No thyromegaly. CHEST: Clear to auscultation. HEART: S1, S2, regular. ABDOMEN: Soft. EXTREMITIES: Clubbing and cyanosis negative. LABORATORY DATA: Blood workup as follows. WBC 6.8, hemoglobin is 8.8, hematocrit 30.5, platelet count 124,000. Chemistry shows sodium 141, potassium 4, chloride 97, carbon dioxide 34, anion gap of 14, BUN 20, creatinine 0.9. Total protein 5.6, albumin 2.6, albumin and globulin ratio 0.9. IMPRESSION: Protein-calorie malnutrition, which was not present on admission; anemia, status post packed red blood cell transfusion; severe thrombocytopenia; history of epistaxis; severe aortic stenosis; history of coronary artery disease, status post percutaneous transluminal coronary angioplasty; preserved left ventricular function. As mentioned, history of cirrhosis; congestive heart failure secondary to aortic stenosis. RECOMMENDATIONS: Continue diuretics COPD. Continue low-dose metoprolol. Not on antiplatelet therapy because of thrombocytopenia. Not on DVT prophylaxis because of severe thrombocytopenia. Overall, the patient has critical long-term prognosis, extremely guarded. code status DNR. Pablo Guillermo MD
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
--- NOTE | 2017-09-10 03:10 | PN ---
DATE: 09/09/2017 REFERRING PHYSICIAN: Kristin Rg MD. SUBJECTIVE: She is out of bed to chair. Sons are at bedside. Night was unremarkable. Feels better. Refusing to use CPAP. Mild cough, especially at nighttime. No nausea. No vomiting. No diarrhea. Trace leg swelling. PHYSICAL EXAMINATION: GENERAL: No acute distress. VITAL SIGNS: Temperature is 98, heart rate is 87, respiratory rate is 20, blood pressure 119/57, pulse ox 98% on nasal cannula. HEENT: Moist mucous membranes. Crowded airway. NECK: Supple. No JVD. LUNGS: Fair air flow with a few rhonchi. HEART: S1, S2. ABDOMEN: Soft, nontender, no organomegaly. EXTREMITIES: Trace edema. NEUROLOGIC: Awake and alert. Follows simple commands. MEDICATIONS: She is on Aldactone 25 mg twice a day, Colace 100 mg daily, Lasix 80 mg twice a day, metoprolol tartrate 12.5 mg daily, milk of magnesia 30 mL daily, Protonix 40 mg daily, Solu-Medrol 20 mg daily, Tessalon Perles 100 mg three times a day, Tylenol p.r.n., Xanax 0.25 mg daily p.r.n., Xopenex inhaled q. 8 hours, Zithromax 500 mg daily. LABORATORY DATA: Reviewed. No new labs are available since yesterday. IMPERSSION AND PLAN: Severe anemia requiring transfusion; has iron deficiency requiring IV iron; chronic obstructive lung disease; severe cardiomyopathy with aortic stenosis; pulmonary hypertension; chronic lung disease, sleep apnea syndrome refuses CPAP use, cryptogenic cirrhosis; portal hypertension; leg swelling. Pulmonary point of view, doing okay. We will discontinue Solu-Medrol. Place her on prednisone 10 mg daily. Continue Zithromax, diuretics, bronchodilators, fall precaution, physical therapy. Thank you and we will follow with you. Pablo Cantor MD
[2017-09-10] MEDS: Pantoprazole 40 mg EC Tab PO SCH (05:05)
[2017-09-10] MEDS: Levalbuterol 0.63 MG/3 ML Inhal Soln UD IH SCH ×2 (07:37→13:24)
--- NOTE | 2017-09-10 19:44 | PN ---
DATE: REASON FOR CONSULTATION AND FOLLOWUP: Shortness of breath, decompensated congestive heart failure, COPD, CHF, severe aortic stenosis, anemia, severe thrombocytopenia. SUBJECTIVE: Patient denies any chest pain. Sitting in the chair. Feels mild shortness of breath early, but now feels okay. OBJECTIVE: GENERAL: Not in apparent distress. VITAL SIGNS: Temperature afebrile, heart rate 83, blood pressure 110/63. HEENT: PERRLA. Extraocular muscles intact. NECK: Supple. No carotid bruits or thyromegaly. CHEST: Clear to auscultation. HEART: S1, S2, regular. ABDOMEN: Soft. EXTREMITIES: Clubbing and cyanosis negative. LABORATORY DATA: Blood work up as follows, WBC 6.8, hemoglobin 8.8, hematocrit 30.5, platelet count 124. Chemistry shows sodium 141, potassium 4, chloride 97, carbon dioxide 34, anion gap of 14, BUN 28, creatinine 0.9. Total protein 5.6, albumin 2.6, albumin-globulin ratio 3. IMPRESSION: Aortic stenosis, thrombocytopenia, anemia, cirrhosis, protein-calorie malnutrition, which is not present on admission, status post packed red blood cell transfusion, history of multiple epistaxis in the past, severe aortic stenosis. RECOMMENDATION: Admission in the previous note. Continue aggressive medical treatment. Continue gentle diuretics. Continue treatment of COPD. Patient is not on DVT prophylaxis because of severe thrombocytopenia. She has a risk of spontaneous bleeding. Now overall patient's condition is critical. Long-term prognosis is extremely guarded. We will discuss code status with Dr. Rg and the family. Consider DNR status, I discussed with the family. Discussed with both sons about the patient condition and prognosis. Pablo Guillermo MD
--- NOTE | 2017-09-10 22:23 | PN ---
DATE: SUBJECTIVE: The patient was seen and examined on the bedside, sitting on the chair, looking comfortable. No nausea, vomiting, diarrhea. No hematuria or hematochezia. No swelling of the leg. No chest pain or palpitation. No headache or dizziness. Tolerating food very well, but feeling very fatigued and tired. Still coughing but less. PHYSICAL EXAMINATION: VITAL SIGNS: Temperature 97.3, pulse 83, blood pressure 110/63, respiratory rate 18. HEENT: Head normocephalic, atraumatic. Eyes PERRLA. Extraocular muscles are intact. Conjunctivae clear. Nose patent. NECK: Supple. No carotid bruit, JVD, or thyromegaly. CHEST: Bilaterally symmetrical. HEART: S1 and S2 positive. LUNGS: Clear to auscultation. ABDOMEN: Soft. Bowel sounds present. No organomegaly. EXTREMITIES: No edema. No cyanosis. NEUROLOGICAL: The patient is awake and alert. Moving all four extremities. No focal deficits. MEDICATIONS: Aldactone, Ambien, Colace, Lasix, Lopressor, milk of magnesia, prednisone, Protonix, Tessalon Perles, Tylenol, Xanax, Xopenex, azithromycin. LABORATORY DATA: White blood cells 6.8, hemoglobin 8.8, hematocrit 30.5, platelets 124. Sodium 141, potassium 4.0, BUN 28, creatinine 0.9, glucose 119. ASSESSMENT AND PLAN: Ms. Maria D Sullivan is a 77-year-old lady with history of leukopenia, now improved; history of anemia, H and H is almost stable, status post blood transfusion, iron infusion; hyperchloremia; renal insufficiency; hyperglycemia; history of hypophosphatemia and hypomagnesemia, now is replaced; abnormal liver function test; chronic obstructive pulmonary disease; severe cardiomyopathy with aortic stenosis; pulmonary hypertension; sleep apnea syndrome, refuses continuous positive airway pressure use; cryptogenic cirrhosis; portal hypertension; history of swelling of the leg; history of stasis dermatitis, improved. Dr. Cantor discontinued the Solu-Medrol, started on prednisone tapering doses. Continue Zithromax, diuretics, bronchodilators, fall precautions, need physical therapy. Appreciates Dr. Cantor and Dr. Guillermo's notes. We will follow up. Kristin Rg MD [facility] # [id number]
--- NOTE | 2017-09-11 00:14 | PN ---
DATE: 09/10/2017 PULMONARY PROGRESS NOTE REFERRING PHYSICIAN: Kristin Rg MD SUBJECTIVE: She is out of bed to chair. Night was unremarkable. Feels little better. Mild cough. No shortness of breath. No nausea, no vomiting, no diarrhea. No leg pain or leg swelling. OBJECTIVE: GENERAL: In no acute distress. VITAL SIGNS: Temperature is 98, heart rate is 83, respiratory rate is 20, blood pressure 121/61, and pulse ox 97% on 4 liters nasal cannula. HEENT: Moist mucous membranes. No ulcer or thrush noted. NECK: Supple. No JVD. LUNGS: Have a fair airflow with rhonchi. HEART: S1 and S2. ABDOMEN: Soft, nontender. No organomegaly. EXTREMITIES: There is no edema. NEUROLOGIC: Awake and alert. Follows simple commands. LABORATORY DATA: Shows hemoglobin 2 days ago was 8.8. Chemistry: No new chemistry is available. MEDICATIONS: She is on Aldactone 25 mg twice a day, Ambien 2.5 mg at bedtime p.r.n., Colace 100 mg twice a day, Lasix 80 mg twice a day, metoprolol tartrate 12.5 mg daily, milk of magnesia on a p.r.n. basis, prednisone 10 mg daily, Protonix 40 mg daily, Tessalon Perles 100 mg three times a day, Tylenol p.r.n., Xanax 0.25 mg daily p.r.n., Xopenex inhaled q.6 hours p.r.n., and Zithromax 500 mg daily. IMPRESSION AND PLAN: Severe anemia, requiring transfusion, probably secondary to severe epistaxis, requiring cauterization, has iron deficiency - has been on intravenous iron, chronic obstructive lung disease, severe cardiomyopathy, aortic stenosis, pulmonary hypertension, chronic lung disease, sleep apnea syndrome, cryptogenic cirrhosis, and portal hypertension. From a Pulmonary point of view, she is doing okay. May continue antibiotics and prednisone up to 3 days or so and discontinue. Sleep apnea precautions. Keep head at 45 degrees. Continue Dilantin. 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 Physical therapy. Thank you and we will follow with you. Pablo Cantor MD
[2017-09-11] MEDS: Pantoprazole 40 mg EC Tab PO SCH (05:09)
[2017-09-11 06:29] LABS: EOS # 0.1 (0.0-0.7); EOS % 3.6 % (1.5-5.0); GRAN # 2.12 (1.4-6.5); GRAN % 55.1 % (50.0-68.0); HEMOGLOBIN 8.7 g/dL (12.0-16.0); LYMPH % 26.5 % (22.0-35.0); MEAN CELL VOLUME 82.3 fl (80.0-105.0); MEAN CORPUSCULAR HGB CONC 29.2 g/dl (31.0-37.0); MEAN PLATELET VOLUME 9.6 fl (7.0-11.0); MONO # 0.6 (0.1-0.6); MONO % 14.8 % (1.0-6.0); RBC 3.62 10^6/uL (3.5-6.1); RED CELL DISTRIBUTION WIDTH 25.5 % (11.5-14.5); WHITE BLOOD COUNT 3.9 10^3/ul (4.5-11.0)
[2017-09-11 07:13] LABS: BLOOD UREA NITROGEN 26 mg/dL (7-21); CALCIUM 8.7 mg/dL (8.4-10.5); GFR AFRICAN-AMERICAN > 60; GFR NON-AFRICAN AMERICAN > 60
[2017-09-11] MEDS: Levalbuterol 0.63 MG/3 ML Inhal Soln UD IH SCH ×3 (08:38→19:01)
--- NOTE | 2017-09-11 09:11 | PN ---
DATE: 09/08/2017 SUBJECTIVE: Patient is a 77-year-old female. Patient seen and examined at the bedside, looking comfortable, sitting on the chair, having her dinner, feeling significantly better. Shortness of breath is better. Coughing is better. No nausea, vomiting or diarrhea. No hematuria or hematochezia. No swelling of the legs. No chest pain. No palpitations. No headache. No dizziness. PHYSICAL EXAMINATION: VITAL SIGNS: Temperature 98.6, pulse 76, blood pressure 105/53, respiratory rate 18. HEENT: Head is normocephalic, atraumatic. Eyes: PERRLA. Extraocular muscles are intact. Conjunctivae are clear. Nose is patent. NECK: Supple. No carotid bruits, JVD or thyromegaly. CHEST: Bilaterally symmetrical. HEART: S1 and S2 positive. LUNGS: Clear to auscultation. ABDOMEN: Soft. Bowel sounds present. No organomegaly. EXTREMITIES: No edema. No cyanosis. NEUROLOGIC: Patient is awake and alert. Moving all four extremities. No focal deficit. LABORATORY DATA: White blood cell is 6.8, hemoglobin 8.8, hematocrit 30.5, platelets 124. Sodium 141, potassium 4, BUN 28, creatinine 0.6. MEDICATIONS: Aldactone, Colace, Lasix, Lopressor, milk of magnesia, Protonix, Solu-Medrol, Tessalon Perles, Tylenol, Xanax, Xopenex, azithromycin. ASSESSMENT AND PLAN: a 77-year-old lady with history of anemia, got better; leukopenia, improving; thrombocytopenia, practically pancytopenia; hypochloremia; diabetes mellitus; hypophosphatemia; hypomagnesemia, improved; abnormal liver function test; influenza type A and B is negative, seen by the manager machine, Dr. Pablo Guillermo, had multiple medical problems, requiring blood transfusion and intravenous iron infusion, chronic obstructive pulmonary disease, severe cardiomyopathy with aortic stenosis. Dr. Guillermo spoke to the patient's family for surgery. Pulmonary hypertension, cirrhosis of the liver, multiple times epistaxis, getting physical therapy, gastrointestinal and deep venous thrombosis prophylaxis, tapering dose of steroid. We will follow. Kristin Rg MD [facility]
--- NOTE | 2017-09-11 14:13 | PN ---
DATE: 09/11/2017 PULMONARY PROGRESS NOTE REFERRING PHYSICIAN: Kristin Rg MD SUBJECTIVE: She is lying in the bed at 45 degrees. Night was unremarkable. Patient slept well. Mild cough. No nausea, no vomiting, no diarrhea. No leg pain or leg swelling. OBJECTIVE: GENERAL: In no acute distress. VITAL SIGNS: Temperature is 98, heart rate is 88, respiratory rate is 20, blood pressure 100/68, and pulse ox 95% on nasal cannula. HEENT: Moist mucous membranes. Crowded airway. NECK: Supple. No JVD. LUNGS: Fair airflow with a few rhonchi. HEART: S1 and S2. ABDOMEN: Soft, nontender. No organomegaly. EXTREMITIES: There is a trace edema. NEUROLOGIC: Awake and alert. Follows simple commands. MEDICATIONS: She is on Aldactone 25 mg twice a day, Ambien 2.5 mg at bedtime p.r.n., Colace 100 mg daily, Lasix 80 mg twice a day, metoprolol tartrate 12.5 mg daily, prednisone 10 mg daily, Protonix 40 mg daily, Tessalon Perles 100 mg three times a day, Tylenol p.r.n., Xopenex 0.63 three times a day, and Zithromax 500 mg daily. LABORATORY DATA: Shows hemoglobin 8.7, hematocrit 29.8, WBC 3.9, and platelets 73. Sodium 139, potassium 3.7, chloride 95, bicarbonate 38. BUN 26, creatinine 0.7. Glucose is 100. Calcium is 8.7, phosphorus 2.5, and magnesium 2.0. IMPRESSION AND PLAN: Anemia requiring transfusion, secondary to severe epistaxis, requiring cauterization, iron-deficiency anemia requiring intravenous iron, chronic obstructive lung disease, severe cardiomyopathy, severe aortic stenosis, pulmonary hypertension, chronic lung disease, sleep apnea syndrome, cryptogenic cirrhosis, and portal hypertension. We will continue p.o. and inhaled bronchodilators. Keep head at 45 degrees. Sleep apnea precautions. Avoid sedation. Continue Dilantin. 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 May add nasal saline . Fall precautions. Thank you and we will follow with you. Pablo Cantor MD [facility] # [id number]
--- NOTE | 2017-09-11 15:24 | PN ---
DATE: 09/11/2017 REASON FOR THE CONSULTATION: Shortness of breath, decompensated congestive heart failure, COPD, CHF, severe aortic stenosis, anemia, and severe thrombocytopenia. SUBJECTIVE: The patient denies any chest pain or shortness of breath. Feels better. OBJECTIVE: GENERAL: Not in apparent distress, sitting at the bedside. VITAL SIGNS: As follows: Temperature afebrile, heart rate 88 and blood pressure 100/68. HEENT: PERRLA. Extraocular muscles intact. NECK: Supple. No carotid bruit or thyromegaly. CHEST: Clear to auscultation. HEART: S1, S2 regular. ABDOMEN: Soft. EXTREMITIES: Clubbing and cyanosis negative. LABORATORY DATA: Blood workup as follows: WBC 3.9, hemoglobin 8.7, hematocrit 29.8 and platelet count of 73. Chemistry shows sodium 139, potassium 3.7, chloride 95, bicarbonate 38, anion gap of 10, BUN 26 and creatinine 0.9. IMPRESSION AND PLAN: Protein-calorie malnutrition, moderate, which was not present on admission; cryptogenic cirrhosis; thrombocytopenia; anemia, status post blood transfusion; history of epistaxis; history of severe aortic stenosis, who refuses earlier transcatheter aortic valve replacement, now patient is too sick to go for transcatheter aortic valve replacement with multiorgan dysfunction; severe thrombocytopenia, cannot tolerate dual antiplatelet therapy. Continue medical treatment, should discuss the do not resuscitate status. Overall, patient's condition is critical. Long-term prognosis is extremely guarded. Continue gentle diuretics and a low dose beta-kirby as tolerated. Continue treatment of chronic obstructive pulmonary disease. We will follow with you. Thank you, Dr. Rg, for providing us the opportunity in taking care of the patient, Maria D Sullivan. Pablo Guillermo MD
[2017-09-12 02:07] VITALS: RESP 19
--- NOTE | 2017-09-12 02:42 | PN ---
DATE: SUBJECTIVE: The patient is a 77-year-old female. Patient was seen and examined on the bedside in the late evening, looking comfortable. No nausea, vomiting, diarrhea. No hematuria or hematochezia. No swelling of the leg. No chest pain or palpitation. No headache, no dizziness. Cough is better. Chest pain is better. Appetite is okay. Patient slept well. Cough is little bit better. No fever, no chills. PHYSICAL EXAMINATION: VITAL SIGNS: Temperature 98, heart rate 88, respiratory rate 20, blood pressure 100/68, pulse oximetry is 95% on nasal cannula. HEENT: Head normocephalic, atraumatic. Eyes PERRLA. Extraocular muscles are intact. Conjunctivae clear. Nose patent. Mucous membranes are moist. NECK: Supple. No carotid bruit, JVD, or thyromegaly. CHEST: Bilaterally symmetrical. HEART: S1 and S2 positive. LUNGS: Clear to auscultation. ABDOMEN: Soft. Bowel sounds present. No organomegaly. EXTREMITIES: Trace edema. NEUROLOGICAL: Patient is awake and alert. Follows simple commands. MEDICATIONS: Aldactone, Ambien, Colace, Lasix, metoprolol, prednisone, Protonix, Tessalon Perles, Tylenol, Xopenex, Zithromax. LABORATORY DATA: Hemoglobin 8.7, hematocrit 29.8, white blood cells 3.9, platelets 73. Sodium 139, potassium 3.7, BUN 26, creatinine 0.7, calcium 8.7, magnesium 2.0. ASSESSMENT AND PLAN: Ms. Marai D Sullivan is a 77-year-old lady with severe anemia requiring blood transfusions and iron transfusion; history of repeatedly epistaxis requiring cauterization; history of coronary artery disease; history of pancytopenia; chronic obstructive lung disease; severe cardiomyopathy; severe aortic stenosis; hypertension; sleep apnea syndrome; cryptogenic cirrhosis; portal hypertension. Continue inhaled bronchodilators. Sleep apnea precautions. Avoid sedation. Afterload reduction. Dr. Cantor ordered nasal saline. Patient is deconditioned. History of repeatedly cellulitis of the legs, stasis dermatitis, needs physical therapy. Waiting for Transitional Care Unit evaluation. Repeat labs. We will follow up. Kristin Rg MD [facility] # [id number]
[2017-09-12] MEDS: Pantoprazole 40 mg EC Tab PO SCH (05:34)
[2017-09-12 06:14] VITALS: O2SAT 98
[2017-09-12] MEDS: Levalbuterol 0.63 MG/3 ML Inhal Soln UD IH SCH ×3 (07:57→19:19)
[2017-09-12 12:40] VITALS: TEMP 98.1
--- NOTE | 2017-09-12 14:53 | PN ---
DATE: 09/12/2017 REASON FOR THE CONSULTATION AND FOLLOWUP: Shortness of breath, decompensated congestive heart failure, COPD, CHF, severe aortic stenosis, anemia, and severe thrombocytopenia. SUBJECTIVE: The patient denies any chest pain or shortness of breath. OBJECTIVE GENERAL: Not in apparent distress. VITAL SIGNS: Temperature afebrile, heart rate 79, blood pressure 103/59. HEENT: PERRLA. Extraocular muscles intact. NECK: Supple. No carotid bruit or thyromegaly. CHEST: Clear to auscultation. HEART: S1, S2 regular. ABDOMEN: Soft. EXTREMITIES: Clubbing and cyanosis negative. LABORATORY DATA: Blood workup as follows, WBC 3.9, hemoglobin 8.7, hematocrit 29.8, platelet count 73,000. Chemistry shows sodium 130, potassium , chloride 95, carbon dioxide 38, anion gap of 10, BUN 26, creatinine 0.7. IMPRESSION AND PLAN: Protein-calorie malnutrition, moderate, which was not present on admission; cryptogenic cirrhosis; thrombocytopenia; anemia, status post blood transfusion; history of epistaxis, history of severe aortic stenosis, refuses earlier transcatheter aortic valve replacement, now the patient is too sick to go for transcatheter aortic valve replacement with multiorgan dysfunction; severe thrombocytopenia, cannot tolerate dual antiplatelet therapy; without any aspirin or Plavix, the patient requires transfusion heart valve, the patient is losing blood it will be more detrimental, I will treat medically. I discussed with the son last week; for now, the patient will be treated medically. Continue diuretics, continue low-dose beta-kirby as tolerated. Continue antibiotics. Continue aggressive treatment of COPD. We will follow up with you. Thank you Dr. Rg for providing me the opportunity in taking care of the patient, Maria D Sullivan. Pablo Guillermo MD
[2017-09-12 18:20] VITALS: BP 117/57; PULSE 83
--- NOTE | 2017-09-13 01:20 | PN ---
DATE: REFERRING PHYSICIAN: Kristin Rg MD SUBJECTIVE: The patient is sitting up in the chair, going to get nebulizer treatment, being discharged to subacute for continued care. Breathing is much better, not much sputum production. No nausea. No vomiting or diarrhea. No leg pain or leg swelling. OBJECTIVE: GENERAL: In no acute distress. VITAL SIGNS: Temperature is 98, heart rate is 83, respiratory rate is 20, blood pressure 117/57, pulse ox 98% on 4 L nasal cannula. HEENT: Moist mucous membrane. Crowded airway. NECK: Supple. No JVD. LUNGS: Have fair airflow with a few rhonchi. HEART: S1 and S2. ABDOMEN: Soft and nontender. No organomegaly. EXTREMITIES: Trace edema. NEUROLOGICAL: Awake and alert, follow simple commands. MEDICATIONS: She is on Aldactone 25 mg twice a day, Ambien 2.5 mg at bedtime p.r.n., Colace 100 mg twice a day, Lasix 80 mg twice a day, metoprolol tartrate 12.5 mg daily, milk of magnesia 30 mL daily p.r.n., nasal saline 2 sprays q. 3 hours p.r.n., prednisone 5 mg daily, Protonix 40 mg daily, Tessalon Perles 100 mg 3 times a day, Tylenol p.r.n., Xopenex inhaled q. 8 hours, Zithromax 500 mg daily. LABORATORY DATA: Reviewed and noted. No new lab is available since yesterday. IMPRESSION AND PLAN: Anemia, which was symptomatic, requiring transfusion, probably secondary to severe epistaxis, been cauterized the bleed, also iron deficiency, chronic obstructive lung disease, severe cardiomyopathy, severe aortic stenosis, pulmonary hypertension, chronic lung disease, sleep apnea syndrome, cryptogenic cirrhosis, and portal hypertension. Taper off steroids. Continue inhaled bronchodilator, gastric prophylaxis. Sleep apnea precaution. The patient refused to use CPAP. Thank you and we will follow with you. Pablo Cantor MD
--- NOTE | 2017-09-13 09:04 | PN ---
DATE: 09/12/2017 SUBJECTIVE: The patient is a 77-year-old female. The patient is seen and examined at the bedside, Cough is better. Shortness of breath is better. No nausea, vomiting, or diarrhea. No hematuria or hematochezia. Swelling of the leg is better. No chest pain. No headache or dizziness. Tolerates liquid very well. PHYSICAL EXAMINATION: VITAL SIGNS: Temperature 98.2, pulse 79, blood pressure 120/80 , respiratory rate is 19. HEENT: Head: Normocephalic, atraumatic. Eyes: PERRLA. Extraocular muscles are intact. Conjunctivae clear. Nose patent. Mucous membranes are moist. NECK: Supple. No carotid bruit. No JVD. CHEST: Clear to auscultation. ABDOMEN: Soft. Bowel sounds are present. No organomegaly. EXTREMITIES: No edema. No cyanosis. NEUROLOGIC: The patient is awake and alert, moving all 4 extremities. No focal deficits. MEDICATIONS: Spironolactone, Ambien, metoprolol, NS, prednisone, Tessalon Perles, Xopenex, and azithromycin. LABORATORY DATA: White blood cell is 3.9, hemoglobin 8.7, hematocrit 29.8, platelets 73. Sodium 139, potassium 3.7, BUN 26, creatinine 0.7. ASSESSMENT AND PLAN: Ms. Maria D Sullivan is a 77-year-old lady with leukopenia, anemia, thrombocytopenia, actually pancytopenia, status post blood transfusion and iron infusion; renal insufficiency; abnormal liver function test; urinary tract infection. Influenza type A and B are negative. History of repeated epistaxis requiring cauterization of the nasal mucosa, chronic obstructive lung disease, severe cardiomyopathy, severe aortic stenosis, pulmonary hypertension, sleep apnea, chronic lung disease, portal hypertension, cirrhosis of the liver, deconditioning. History of cellulitis of the leg, improved. Continue inhaled bronchodilators, tapering dose of steroids, sleep apnea precautions, avoid sedation, gastrointestinal and deep venous thrombosis prophylaxis. Repeat labs. We will follow up. Kristin Rg MD [facility]
== END 2017-09-12 22:13 | DRG 292 ==
LOC: ED 12:10 → ERH 14:29 → 2RSO 17:12
PROVIDERS: ADMIT Internal Medicine; ATTEND Internal Medicine
PROC: 30233N1 Transfusion of Nonautologous Red Blood Cells into Peripheral Vein, Percutaneous Approach (ICD-10-PCS; principal; 2017-09-02)
PROC: 3E0F7GC Introduction of Other Therapeutic Substance into Respiratory Tract, Via Natural or Artificial Opening (ICD-10-PCS; 2017-09-02)
DX: I11.0 Hypertensive heart disease with heart failure (principal); I50.23 Acute on chronic systolic (congestive) heart failure; R18.8 Other ascites; L89.151 Pressure ulcer of sacral region, stage 1; E44.0 Moderate protein-calorie malnutrition; D61.818 Other pancytopenia; E11.65 Type 2 diabetes mellitus with hyperglycemia; I27.20 Pulmonary hypertension, unspecified; E83.42 Hypomagnesemia; K76.6 Portal hypertension; N39.0 Urinary tract infection, site not specified; K74.69 Other cirrhosis of liver; K44.9 Diaphragmatic hernia without obstruction or gangrene; I35.2 Nonrheumatic aortic (valve) stenosis with insufficiency; F51.02 Adjustment insomnia; R09.02 Hypoxemia; I25.10 Atherosclerotic heart disease of native coronary artery without angina pectoris; F32.9 Major depressive disorder, single episode, unspecified; D50.9 Iron deficiency anemia, unspecified; E87.6 Hypokalemia; I87.2 Venous insufficiency (chronic) (peripheral); J44.9 Chronic obstructive pulmonary disease, unspecified; I42.9 Cardiomyopathy, unspecified; F40.240 Claustrophobia; G47.30 Sleep apnea, unspecified; K29.70 Gastritis, unspecified, without bleeding; Z95.5 Presence of coronary angioplasty implant and graft; Z91.19 Patient's noncompliance with other medical treatment and regimen; Z87.891 Personal history of nicotine dependence; Z91.14 Patient's other noncompliance with medication regimen

== ENCOUNTER 2017-10-24 22:13 | Inpatient (IN) | payer MEDICARE ==
[2017-10-24 22:13] VITALS: PULSE 103; BMI 25.2
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
[2017-10-24 23:29] LABS: HEMOGLOBIN 9.5 g/dL (12.0-16.0); MEAN CELL VOLUME 82.5 fl (80.0-105.0); MEAN CORPUSCULAR HEMOGLOBIN 26.5 pg (25.0-35.0); MEAN CORPUSCULAR HGB CONC 32.1 g/dl (31.0-37.0); MEAN PLATELET VOLUME 8.9 fl (7.0-11.0); RBC 3.59 10^6/uL (3.5-6.1); RED CELL DISTRIBUTION WIDTH 24.2 % (11.5-14.5); WHITE BLOOD COUNT 4.6 10^3/ul (4.5-11.0)
[2017-10-24 23:40] LABS: INR 1.2 (0.93-1.08); PARTIAL THROMBOPLASTIN TIME 34.7 Seconds (25.1-36.5); PROTHROMBIN TIME 13.7 SECONDS (9.4-12.5)
[2017-10-24 23:41] LABS: ALB/GLOB RATIO 0.9 (1.1-1.8); ALT/SGPT 32 U/L (7-56); AST/SGOT 42 U/L (14-36); BLOOD UREA NITROGEN 18 mg/dL (7-21); CALCIUM 10.1 mg/dL (8.4-10.5); GFR AFRICAN-AMERICAN > 60; GFR NON-AFRICAN AMERICAN > 60
[2017-10-24 23:52] LABS: B-TYPE NATRIURETIC PEPTIDE 1680 pg/mL (0-450); TROPONIN I 0.04 ng/mL
[2017-10-25] MEDS ORDERED: Piperacillin/Tazobact 3.375 gm 100 ML IV STA (01:13)
[2017-10-25] MEDS ORDERED: Vancomycin 1gm in NS 250ml 1 GM/250 ML BAG IVPB STA (01:24)
[2017-10-25] MEDS ORDERED: Albuterol-Ipratrop 3 mg / 0.5 (3 ml) UD IH PRN (05:08)
[2017-10-25] MEDS ORDERED: Metoprolol 1 mg/ml Inj IVP ONE ×2 (08:58→09:03)
[2017-10-25] MEDS ORDERED: Aspirin 325 mg EC Tablets PO ONE (08:58)
[2017-10-25] MEDS ORDERED: Enoxaparin 60 mg Syringe SC ONE (08:58)
--- NOTE | 2017-10-25 09:03 | CP.PCM.PN ---
<Analy Green - Last Filed: 10/25/17 09:05> Subjective - Date & Time of Evaluation Date of Evaluation: 10/25/17 Time of Evaluation: 09:00 - Subjective Subjective: House Doc Note House doc paged at 8:39am by RN for EKG changes noted. House doc arrived to floor immediately. Patient was resting comfortably in bed but complained of some minor chest pain. EKG showed some changes from previous EKG in leads V1, V2, and V3. Dr Guillermo cardiology contacted who stated patient is not a [facility] candidate. Repeat EKG ordered and STAT troponin was ordered. Patient given ASA 81, Lovenox 60mg sq, Lopressor 5mg STAT Vitals as follows: 115/56 HR 115 O2 97% 2L NC Dr. Rg aware. Patient to be transferred to TELE. Objective - Vital Signs/Intake and Output Vital Signs (last 24 hours): Temp Pulse Resp BP Pulse Ox 98.9 F 114 H 20 133/67 100 10/25/17 07:36 10/25/17 07:36 10/25/17 07:36 10/25/17 07:36 10/25/17 07:36 Intake and Output: 10/25/17 10/25/17 06:59 18:59 Intake Total 60 Output Total 150 Balance -90 - Medications Medications: Current Medications Albuterol/Ipratropium (Duoneb 3 Mg/0.5 Mg (3 Ml) Ud) 3 ml IH [id number] PRN PRN Reason: Shortness of Breath Aspirin (Ecotrin) 325 mg PO ONCE ONE Stop: 10/25/17 08:59 Clopidogrel Bisulfate (Plavix) 75 mg PO ONCE ONE Stop: 10/25/17 08:59 Enoxaparin Sodium (Lovenox) 60 mg SC ONCE ONE PRN Reason: Protocol Stop: 10/25/17 08:59 Famotidine (Pepcid) 20 mg PO DAILY ALEXANDRA Furosemide (Lasix) 80 mg IVP BID ALEXANDRA Ceftriaxone Sodium (Rocephin 1 Gram Ivpb) 1 gm in 100 mls @ 100 mls/hr IVPB DAILY ALEXANDRA PRN Reason: Protocol Vancomycin HCl (Vancomycin 1gm) 1 gm in 250 mls @ 167 mls/hr IVPB Q12H ALEXANDRA PRN Reason: Protocol Metoprolol Tartrate (Lopressor) 12.5 mg PO DAILY ALEXANDRA Metoprolol Tartrate (Lopressor) 5 mg IVP ONCE ONE Stop: 10/25/17 08:59 Spironolactone (Aldactone) 25 mg PO BID [facility] - Labs Labs: PT 13.7 SECONDS (9.4-12.5) H 10/24/17 23:10 INR 1.20 (0.93-1.08) H 10/24/17 23:10 APTT 34.7 Seconds (25.1-36.5) 10/24/17 23:10 <Rosi Alexis - Last Filed: 10/25/17 14:11> Objective - Vital Signs/Intake and Output Vital Signs (last 24 hours): Temp Pulse Resp BP Pulse Ox 99.4 F 95 H 18 108/54 L 100 10/25/17 11:47 10/25/17 11:47 10/25/17 11:47 10/25/17 11:47 10/25/17 07:36 Intake and Output: 10/25/17 10/25/17 06:59 18:59 Intake Total 60 Output Total 150 Balance -90 - Medications Medications: Current Medications Albuterol/Ipratropium (Duoneb 3 Mg/0.5 Mg (3 Ml) Ud) 3 ml IH [id number] PRN PRN Reason: Shortness of Breath Bacitracin (Bacitracin) 1 ea TOP TID [facility] Emollient Ointment (Vaseline Oint) 5 gm TOP DAILY PRN PRN Reason: Dry skin Famotidine (Pepcid) 20 mg PO DAILY [facility] Last Admin: 10/25/17 09:12 Dose: 20 mg Furosemide (Lasix) 80 mg IVP BID [facility] Last Admin: 10/25/17 09:23 Dose: Not Given Ceftriaxone Sodium (Rocephin 1 Gram Ivpb) 1 gm in 100 mls @ 100 mls/hr IVPB DAILY [facility] PRN Reason: Protocol Last Admin: 10/25/17 09:15 Dose: 100 mls/hr Vancomycin HCl (Vancomycin 1gm) 1 gm in 250 mls @ 167 mls/hr IVPB Q12H ALEXANDRA PRN Reason: Protocol Levalbuterol HCl (Xopenex) 0.63 mg IH TIDRESP [facility] Methylprednisolone (Solu-Medrol) 20 mg IVP Q12 [facility] Metoprolol Tartrate (Lopressor) 12.5 mg PO DAILY [facility] Last Admin: 10/25/17 09:17 Dose: Not Given Oxymetazoline HCl (Afrin 0.05%) 0 ml NS Q12H [facility] Sodium Chloride ([place]al [place]) 0 ml NS QID [facility] Spironolactone (Aldactone) 25 mg PO BID [facility] Last Admin: 10/25/17 09:13 Dose: 25 mg - Labs Labs: PT 13.7 SECONDS (9.4-12.5) H 10/24/17 23:10 INR 1.20 (0.93-1.08) H 10/24/17 23:10 APTT 34.7 Seconds (25.1-36.5) 10/24/17 23:10 Attending/Attestation - Attestation I have personally seen and examined this patient.: Yes I have fully participated in the care of the patient.: Yes I have reviewed all pertinent clinical information, including history, physical exam and plan: Yes Notes (Text): 10/25/17 14:08 Attending note; Patient seen and examined with resident. Patient is a 77-year-old female with a past medical history of diabetes, hypertension, coronary artery disease, cirrhosis, thrombocytopenia, nosebleeds is admitted with lower extremity cellulitis. Patient complaint of chest pain. EKG showed deep ST depression on lateral leads. Vitals stable. EKG reviewed with windows systems administrator Dr. Guillermo. started on aspirin. One dose of Lovenox given. Case discussed with PMD Dr. Rg in detail. Since the patient has long-standing history of thrombocytopenia, recurrent nosebleeds patient will be watched very closely. Patient was transferred to telemetry. Nursing staff informed. PMD and cardiology aware of the current clinical condition.
[2017-10-25] MEDS: cefTRIAXone 1 gm 1 GM/100 ML BAG IVPB SCH (09:15)
--- NOTE | 2017-10-25 10:24 | RAD ---
HISTORY: Medical clearance. COMPARISON: 09/02/2017. FINDINGS: LUNGS: Resolution of infiltrates identified both lungs right greater than left. PLEURA: Resolution of bilateral pleural effusions. CARDIOVASCULAR: No radiographic findings to suggest acute or significant cardiovascular disease. OSSEOUS STRUCTURES: No significant abnormalities. VISUALIZED UPPER ABDOMEN: Normal. OTHER FINDINGS: None. IMPRESSION: No active disease.
--- NOTE | 2017-10-25 11:12 | CARD ---
APPROVED REPORT EKG Measurement Heart [id number] [id number] <Conclusion> Sinus tachycardia Left axis deviation Right bundle branch block
--- NOTE | 2017-10-25 11:13 | CARD ---
APPROVED REPORT EKG Measurement Heart [id number] <Conclusion> Sinus tachycardia Left axis deviation RBBB.
--- NOTE | 2017-10-25 11:22 | CARD ---
APPROVED REPORT EKG Measurement Heart [id number] [id number] <Conclusion> Sinus tachycardia RBBB.
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
[2017-10-25] MEDS ORDERED: Petrolatum Oint Foilpak (5 gm) TOP PRN (13:29)
[2017-10-25 13:34] LABS: IRON 49 ug/dL (45-180)
[2017-10-25 13:56] LABS: % IRON SATURATION 16 % (20-55); TOTAL IRON BINDING CAPACITY 297 ug/dL (265-497)
[2017-10-25 14:02] LABS: TROPONIN I 0.89 ng/mL
--- NOTE | 2017-10-25 15:03 | US ---
HISTORY: Leg pain and swelling. Evaluate for DVT PHYSICIAN(S): Praveen Augustine MD. TECHNIQUE: Duplex sonography and color-flow Doppler with graded compression were used to evaluate the deep venous systems of both lower extremities. The exam is limited by edema. FINDINGS: The visualized deep venous systems of both lower extremities are sonographically normal and compressible. Normal wave forms and augmentation are seen. There is no sonographic evidence for deep venous thrombosis in the visualized segments of both lower extremities. IMPRESSION: No sonographic evidence for deep venous thrombosis in the visualized segments of both lower extremities.
[2017-10-25] MEDS: Vancomycin 1gm in NS 250ml 1 GM/250 ML BAG IVPB SCH (15:07)
[2017-10-25] MEDS: MethylPREDNISolone 40 mg Vial IVP SCH ×2 (15:08→21:50)
[2017-10-25] MEDS: Bacitracin 500 Units/gm Oint Foilpak UD TOP SCH ×2 (15:08→17:14)
[2017-10-25] MEDS: Oxymetazoline 0.05% Nasal Spray (30 ml) NS SCH (15:08)
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
[2017-10-25] MEDS: Levalbuterol 0.63 MG/3 ML Inhal Soln UD IH SCH ×2 (17:00→19:40)
[2017-10-25 17:29] LABS: FOLATE 10.5 ng/mL
[2017-10-25 18:43] LABS: PH,URINE 5.5 (4.7-8.0); URINE BILIRUBIN NEGATIVE (NEGATIVE); URINE BLOOD MODERATE (NEGATIVE); URINE GLUCOSE (UA) NEGATIVE (NEGATIVE); URINE LEUKOCYTE ESTERASE MODERATE Leu/uL (NEGATIVE); URINE PROTEIN TRACE mg/dL (<30 mg/dL); URINE UROBILINOGEN 0.2 E.U./dL (<1 E.U./dL)
[2017-10-25 18:47] LABS: URINE APPEARANCE CLOUDY (CLEAR); URINE COLOR DARK YELLOW (YELLOW)
[2017-10-25 19:28] LABS: URINE BACTERIA MOD (NEG); URINE EPITHELIAL CELLS 0 - 2 /hpf (0-5); URINE WBC TNTC /hpf (0-6)
--- NOTE | 2017-10-26 00:46 | HP ---
CHIEF COMPLAINT: Nose bleeding, swelling of the legs. HISTORY OF PRESENT ILLNESS: Ms. Maria D Sullivan is a 77-year-old female with past medical history of multiple medical problems, congestive heart failure, hypertension, COPD, lower extremity edema, cellulitis, diabetes mellitus, cirrhosis of the liver, pancytopenia, came to the Emergency Department complaining of epistaxis 3-4 times a day. Patient says that she has been experiencing intermittent left nose bleeding since yesterday. She has similar previous episodes of epistaxis for which she has been evaluated by ENT and got cauterization, has bilateral worsening of the swelling of the legs with redness and warm. Actually patient was seen in my office yesterday and sent to Emergency Room. No nausea, vomiting or diarrhea. PAST MEDICAL HISTORY: As above, coronary artery disease, hypertension, congestive heart failure, COPD, epistaxis, urinary bladder infection, diabetes mellitus, anemia, status post blood transfusion, bilateral leg swelling, history of falls, left hip fracture, gastritis, hiatal hernia, appendectomy, cardiac catheterization, cholecystectomy, coronary artery stenting. FAMILY HISTORY: Father and mother, noncontributory. HABITS: Never smoked. No drugs, no ethanol. ALLERGIES: PATIENT NOT ALLERGIC WITH ANY MEDICATIONS. HOME MEDICATIONS: Lasix, spironolactone, metoprolol. REVIEW OF SYSTEMS: Patient seen and examined at bedside early in the morning, looking comfortable, still having pain in both legs. No more episode of nose bleeding. No fever, no chills. Feeling fatigued and tired. PHYSICAL EXAMINATION: VITAL SIGNS: Temperature 99.4, pulse 95, blood pressure 108/54, respiratory rate 18. HEENT: Head normocephalic, atraumatic. Eyes: PERRLA. Extraocular muscles intact. Conjunctivae clear. Nose patent. Mucous membranes moist. NECK: Supple. No carotid bruit, no thyromegaly. CHEST: Bilaterally symmetrical. HEART: S1, S2 positive. LUNGS: Clear to auscultation. ABDOMEN: Soft. Bowel sounds positive. No organomegaly. EXTREMITIES: Positive edema, redness and warm. NEUROLOGIC: Patient awake, alert. Moving all 4 extremities. Follows simple commands. LABORATORY DATA: White blood cells 4.6, hemoglobin 9.5, hematocrit 29.6 and platelets 292. Sodium 140, potassium 4.1, BUN 18, creatinine 0.6, glucose 144. ASSESSMENT AND PLAN: Ms. Maria D Sullivan is a 77-year-old lady with anemia, status post blood transfusion in the past; diabetes mellitus; abnormal liver function test; three sets troponin done, it trending up; congestive heart failure; cellulitis of the legs; history of epistaxis, status post cauterization. Today early in the morning, patient has chest pain, rapid response called, EKG done, Dr. Guillermo saw the patient. Patient was transferred to Telemetry, low dose aspirin and Lovenox were given by the grade school teacher.. Ultrasound of both lower extremities done, results are pending. consult for ENT for epistaxis and ID for cellulitis of the legs. Patient has history of chronic obstructive pulmonary disease, liver cirrhosis. Lasix and Aldactone started, antibiotics started. We will follow up. Kristin Rg MD MTDJeromy
--- NOTE | 2017-10-26 01:23 | CON ---
DATE: 10/25/2017 PULMONARY CONSULTATION REFERRING PHYSICIAN: Dr. Rg. REASON FOR CONSULTATION: Chronic lung disease, cough and shortness of breath. HISTORY OF PRESENT ILLNESS: This is a 77-year-old female, well known to me from previous admission with multiple medical issues including recurrent epistaxis, been seen by ENT in the past, has a cauterization of the nasal bleed, cardiac diastolic dysfunction, pulmonary hypertension, sleep apnea syndrome, chronic lung disease, cryptogenic cirrhotic liver, ascites, lower extremity edema, recurrent cellulitis, diabetes, also had severe aortic stenosis, who was seen at Dr. Rg's office with lower extremity swelling, cellulitis, recurrent epistaxis, came into the emergency room, was admitted. She has chronic thrombocytopenia secondary to liver disease, presently lying in the bed, has some cough, clear sputum. No nausea and no vomiting, has leg swelling and erythema. PAST MEDICAL HISTORY: As per history of present illness. ALLERGIES: None known. SOCIAL HISTORY: Denies smoking actively at the present time and no alcohol use. She does have a past history of smoking. FAMILY HISTORY: No significant cardiopulmonary disease reported. MEDICATIONS: She is on Afrin spray to each nostril on p.r.n. basis for nasal bleed, Aldactone 25 mg twice a day, bacitracin ointment to affected area 3 times a day, albuterol/Atrovent nebulizer every 6 hours p.r.n., Lasix 80 mg twice a day, metoprolol tartrate 12.5 mg daily, nasal saline 2 spray each nostril q.i.d., Pepcid 20 mg daily, Rocephin 1 g daily, vancomycin 1 g every 12 hours. REVIEW OF SYSTEMS: No headache. Recurrent epistaxis, has cough, sputum production. No hemoptysis. No chest pain. No nausea, no vomiting. Has increased abdominal girth, has a lower extremity swelling and erythema. PHYSICAL EXAMINATION: GENERAL: Lying in the bed, mild distress, has a cough and shortness of breath. VITAL SIGNS: Temperature is 99, heart rate is 117, respiratory rate is 20, blood pressure 112/74, pulse ox 98% on room air. HEENT: Small oral cavity. Crowded airway. Mallampati score is 4. NECK: Supple. No JVD. LUNGS: Scattered rhonchi and wheezing. HEART: S1 and S2. ABDOMEN: Soft, nontender, nondistended. EXTREMITIES: Has bilateral edema, erythema, tender to touch. NEUROLOGIC: Awake, alert, follows simple commands. LABORATORY DATA: Shows hemoglobin 9.5, hematocrit 29.6, WBC 4.6, platelet is 92,000. INR 1.20. PTT is 35. Chemistry shows sodium 140, potassium 4.1, chloride 106, bicarbonate 27, BUN 18, creatinine 0.6, glucose 144, calcium is 10.1, total bili 3.7, AST 42, ALT 32, alk phos is 89. LDH 741. Troponin less than 0.09. ProBNP is 1680. Albumin is 3.0. Chest x-ray is unremarkable for any infiltrate. IMPRESSION AND PLAN: Recurrent epistaxis, thrombocytopenia, chronic obstructive lung disease, cardiomyopathy, diastolic dysfunction, pulmonary hypertension, also has severe aortic stenosis, sleep apnea syndrome, refused to use CPAP, cryptogenic cirrhotic liver with ascites, lower extremity edema. Case discussed with Dr. Rg. Continue antibiotics, add Solu-Medrol 20 mg every 12 hours, Lasix 80 mg twice a day. May use petroleum jelly p.r.n. for nasal cavity for dryness, sleep apnea precaution, avoid sedation, added Xopenex inhaler every 8 hours round the clock with some Mucomyst, out of bed to chair, physical therapy. Thank you and we will follow with you. Pablo Cantor MD
--- NOTE | 2017-10-26 01:47 | CON ---
DATE: 10/25/2017 LOCATION: Patient in room 260, bed 1. REASON FOR CONSULTATION: Coronary artery disease, severe aortic stenosis, nosebleed, chest pain, cirrhosis of liver. HISTORY OF PRESENT ILLNESS: Patient is a 77-year-old female, known case of cirrhosis of liver, thrombocytopenia, hypertension, COPD, severe aortic stenosis, multiple episodes of cellulitis of leg, edema of leg, venous stasis, diabetes, history of angioplasty in 04/2009, admitted with multiple nosebleeds from the left side of the nose. Also patient complained of chest pain, but this chest pain is the same, which she complained previously also and she said this pain is continuous since last 2 weeks. Denies shortness of breath. She is complaining of swelling and redness on her both lower extremities. PAST MEDICAL HISTORY: Positive for severe aortic stenosis, coronary artery disease, angioplasty and stent insertion in 04/2009, cirrhosis of liver, ascites, low platelet count, multiple nosebleeds, multiple episodes of cellulitis, edema of leg, COPD, CHF, hypertension, diabetes mellitus, chronic venous stasis. PERSONAL HISTORY: Denies smoking. Denies drinking. ALLERGIES: PATIENT DENIES ANY ALLERGIES. HOME MEDICATIONS: Spironolactone 25 daily, metoprolol tartarate 12.5 daily, furosemide 80 b.i.d. REVIEW OF SYSTEMS: All the systems reviewed, positive mentioned in the history, others were negative. PHYSICAL EXAMINATION: VITAL SIGNS: Blood pressure is 108/54, respirations 18, pulse 95, temperature 99.4. HEENT: Head is normocephalic. Eyes: Pupils normal. Conjunctivae slightly pale. NECK: JVP low. Carotids equal. THORAX: AP diameter normal. LUNGS: Clear. CARDIOVASCULAR: S1, S2. Ejection systolic murmur grade 3/6. No rub. ABDOMEN: Hepatomegaly. Bowel sounds normal. EXTREMITIES: Marked redness in bilateral lower legs with edema present on both lower legs. LABORATORY DATA: WBC 4.6, hemoglobin 9.5, hematocrit 29.6, platelet 92. Prothrombin time 13.7, INR 1.20, PTT 34.7. DIAGNOSTIC DATA: Chest x-ray, previously noted infiltrates and pleural effusion have cleared. Chest x-ray is clear now. EKG showed sinus tachycardia, left axis deviation, right bundle-branch block, heart rate on EKG was 114 per minute. DIAGNOSES: Multiple nosebleeds; chest pain, atypical, continuous from last two weeks; severe aortic stenosis; coronary artery disease; history of angioplasty and stent insertion in 04/2009; hypertension; diabetes; cirrhosis of liver; ascites; low platelet count; INR prolonged, multiple nosebleeds; congestive heart failure; chronic obstructive pulmonary disease; leg edema; cellulitis on both lower legs. Previously echo had shown ejection fraction 65% to 70%, aortic valve area 0.6 cm2 suggestive of severe stenosis, diastolic left ventricular dysfunction. Patient also had congestive heart failure in the past due to diastolic dysfunction and aortic stenosis. PLAN: Patient is on spironolactone 25 b.i.d., furosemide 80 IV b.i.d., metoprolol tartarate 12.5 mg p.o. daily, Pepcid 20 daily, ceftriaxone 1 g IV daily, methylprednisolone 20 mg IV every 12 hours, vancomycin 1 g IV every 12 hours. Patient seen by Infectious Disease. In the past, we have discussed with the family and the patient, they all agreed not to do any invasive intervention from cardiac point of view and just treat medically. Patient had multiple comorbidities, so we will continue the above medication and will follow with you. Pablo Shah MD
[2017-10-26] MEDS: Vancomycin 1gm in NS 250ml 1 GM/250 ML BAG IVPB SCH ×2 (02:04→14:50)
[2017-10-26] MEDS: Oxymetazoline 0.05% Nasal Spray (30 ml) NS SCH ×2 (02:04→14:50)
[2017-10-26 06:54] LABS: HEMOGLOBIN 8.2 g/dL (12.0-16.0); MEAN CELL VOLUME 84.2 fl (80.0-105.0); MEAN CORPUSCULAR HEMOGLOBIN 26.4 pg (25.0-35.0); MEAN CORPUSCULAR HGB CONC 31.3 g/dl (31.0-37.0); MEAN PLATELET VOLUME 8.7 fl (7.0-11.0); RBC 3.11 10^6/uL (3.5-6.1); RED CELL DISTRIBUTION WIDTH 23.7 % (11.5-14.5)
[2017-10-26 07:09] LABS: WHITE BLOOD COUNT 2.2 10^3/ul (4.5-11.0)
[2017-10-26] MEDS: Levalbuterol 0.63 MG/3 ML Inhal Soln UD IH SCH ×3 (07:16→20:07)
[2017-10-26 07:23] LABS: BLOOD UREA NITROGEN 17 mg/dL (7-21); CALCIUM 9.1 mg/dL (8.4-10.5); GFR AFRICAN-AMERICAN > 60; GFR NON-AFRICAN AMERICAN > 60
[2017-10-26] MEDS: Bacitracin 500 Units/gm Oint Foilpak UD TOP SCH ×3 (09:28→18:28)
[2017-10-26] MEDS: cefTRIAXone 1 gm 1 GM/100 ML BAG IVPB SCH (09:28)
[2017-10-26] MEDS: MethylPREDNISolone 40 mg Vial IVP SCH ×2 (09:28→21:56)
[2017-10-26] MEDS ORDERED: Potassium Chloride 20 mEq/15 ml LIQ UD PO STA (13:52)
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
[2017-10-26] MEDS: Ammonium Lactate 12% Cream (140 g) TOP SCH (17:43)
[2017-10-27] MEDS: Oxymetazoline 0.05% Nasal Spray (30 ml) NS SCH ×2 (01:15→13:44)
[2017-10-27] MEDS: Vancomycin 1gm in NS 250ml 1 GM/250 ML BAG IVPB SCH ×2 (01:19→14:39)
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
--- NOTE | 2017-10-27 04:20 | PN ---
DATE: 10/26/2017 PULMONARY PROGRESS NOTE REFERRING PHYSICIAN: Kristin Rg MD SUBJECTIVE: The patient is lying in the bed, head at 45 degrees. Feels much better compared to yesterday. Decreased cough, decreased short of breath. No nausea, no vomiting and no diarrhea. Still has leg swelling and erythema. OBJECTIVE GENERAL: In no acute distress. VITAL SIGNS: Temperature is 98, heart rate is 85, respiratory rate is 18, blood pressure 102/50, pulse ox 100% on nasal cannula. HEENT: Moist mucous membrane. Crowded airway. Mallampati score is 4. NECK: Supple. No JVD. LUNGS: Have few crackles, expiratory few wheezing. HEART: S1 and S2. ABDOMEN: Soft, nontender. No organomegaly. EXTREMITIES: Does have edema and erythema. NEUROLOGIC: Awake, alert. Follows simple command. MEDICATIONS: She is on aspirin p.r.n. basis for epistaxis, Aldactone 25 mg twice a day, bacitracin ointment to affected area 3 times a day, DuoNeb every 6 hours p.r.n., isosorbide 30 mg daily, Lasix 80 mg twice a day, metoprolol tartrate 5 mg daily, Pepcid 20 mg daily, Rocephin 1 g daily, Solu-Medrol 20 mg every 12 hours, vancomycin 1 g IV every 12 hours, Vaseline ointment to affected area, Xopenex inhaled 3 times a day. LABORATORY DATA: Shows hemoglobin 8.2, hematocrit 26.2, WBC 2.2, platelet is 53. Sodium 139, potassium 3.7, chloride 110, bicarbonate 25, BUN 17, creatinine 0.7, glucose 156, calcium is 9.1. TSH 0.5. Microbiology: Blood culture has been negative. IMPRESSION AND PLAN: Recurrent epistaxis, thrombocytopenia, chronic obstructive lung disease, cardiomyopathy secondary to diastolic dysfunction, severe aortic stenosis with pulmonary hypertension, sleep apnea syndrome, refused to use CPAP, cryptogenic cirrhotic liver, ascites, lower extremity edema, and cellulitis, Pulmonary point of view, she is doing okay. Sleep apnea precaution. Keep head at 45 degrees. Inhaled bronchodilator, antibiotics, diuretics. Follow up labs in the morning. Thank you and we will follow with you. Pablo Cantor MD [facility] # [id number]
[2017-10-27 06:23] LABS: BASO # 0.01 K/mm3 (0.0-2.0); BASO % 0.2 % (0.0-3.0); EOS # 0.1 (0.0-0.7); GRAN # 4.2 (1.4-6.5); HEMOGLOBIN 8.2 g/dL (12.0-16.0); LYMPH # 0.5 (1.2-3.4); LYMPH % 9.3 % (22.0-35.0); MEAN CELL VOLUME 85.2 fl (80.0-105.0); MEAN CORPUSCULAR HEMOGLOBIN 26.9 pg (25.0-35.0); MEAN CORPUSCULAR HGB CONC 31.5 g/dl (31.0-37.0); MEAN PLATELET VOLUME 9.1 fl (7.0-11.0); MONO # 0.3 (0.1-0.6); MONO % 5.5 % (1.0-6.0); RBC 3.05 10^6/uL (3.5-6.1); WHITE BLOOD COUNT 5.1 10^3/ul (4.5-11.0)
[2017-10-27 07:05] LABS: ALB/GLOB RATIO 0.8 (1.1-1.8); ALBUMIN 2.3 g/dL (3.0-4.8); ALT/SGPT 25 U/L (7-56); AST/SGOT 21 U/L (14-36); BLOOD UREA NITROGEN 22 mg/dL (7-21); CALCIUM 9.8 mg/dL (8.4-10.5); GFR AFRICAN-AMERICAN > 60; GFR NON-AFRICAN AMERICAN > 60
[2017-10-27 07:39] LABS: TROPONIN I 0.15 ng/mL
[2017-10-27] MEDS: Levalbuterol 0.63 MG/3 ML Inhal Soln UD IH SCH ×3 (07:45→20:15)
--- NOTE | 2017-10-27 08:41 | PN ---
DATE: 10/26/2017 REASON FOR CONSULTATION AND FOLLOWUP: Coronary artery disease, severe aortic stenosis, nosebleed, cirrhosis, chest pain, possible nonischemic myocardial infarction. SUBJECTIVE: Patient denies any chest pain, shortness of breath, or any palpitations. OBJECTIVE: GENERAL: Lying flat on the bed, very weak, lethargic. VITAL SIGNS: Temperature afebrile, heart rate 80, blood pressure 119/75. HEENT: PERRLA. Extraocular muscles intact. NECK: Supple. No carotid bruits or thyromegaly. CHEST: Clear to auscultation. HEART: S1 and S2, regular. ABDOMEN: Soft. EXTREMITIES: Clubbing and cyanosis negative. LABORATORY DATA: Blood workup as follows: WBC 2.2, hemoglobin 8.2, hematocrit 26.2, platelet count 53. Chemistry shows sodium 139, potassium 3, chloride 110, carbon dioxide 25, anion gap of 8. BUN is 17, creatinine 0.7. IMPRESSION: Chest pain, resolved now, troponin ; severe thrombocytopenia; nosebleed; history of coronary artery disease, status post stent in 2008; history of cirrhosis; low platelet count; multiple nosebleed; multiple episodes of cellulitis of lower extremities; chronic obstructive pulmonary disease; congestive heart failure; hypertension; hyperlipidemia; fever; aortic stenosis. Valve area of 0.6 cm2. Ejection fraction 70%. Initially, patient refused TAVR a couple of years ago. Now, patient is very weak, frail. INR 1.2, elevated. Though patient's chest pain is completely resolved, not a good candidate for long-term anticoagulation because patient has a platelet count that is very low bleed, so we will treat as non-STEMI without heparin. Patient has severe aortic stenosis and non-ST elevation myocardial infarction, but not a candidate for long-term anticoagulation because his platelet count is very low because of the cirrhosis also. Patient is although anticoagulated, INR is high and without any blood thinner or platelet inhibitors or any anticoagulation, patient has a multiple episodes of nosebleed. I discussed both sons on the last admission about the possibility and since the patient is very frail and even if patient was sent for the TAVR, I am not sure. Patient will continue aspirin and Plavix that will be detrimental rather than beneficial to the patient. We will put together. I am not sure whether we will do the good service for the patient to send for the TAVR versus medical treatment. In my opinion, probably current medial treatment rather than less invasive intervention will be more detrimental for the patient and in the beginning, the patient herself agreed to be treated medically. So because of so much comorbidity, I also agreed with them to do medical treatment. So interim, continue baby aspirin if the patient's nosebleed can be tolerated. Continue spironolactone, continue low-dose beta-kirby as blood pressure is tolerated. One dose of heparin was given yesterday with Lovenox and if the blood pressure is tolerable, we will put Imdur 30 p.o. every day. Discussed in length this morning to the patient, patient agreed and understood. We will get EKG and troponin in the morning. We will put Imdur 30 with holding parameters, hold for SBP less than 110. Patient remained asymptomatic, continue beta-kirby, continue low-dose aspirin as nosebleed is tolerated patient can tolerate. Pablo Guillermo MD
[2017-10-27] MEDS ORDERED: Magnesium Hydroxide Susp 30 ml UD PO PRN (09:13)
[2017-10-27] MEDS: Ammonium Lactate 12% Cream (140 g) TOP SCH ×2 (10:19→17:38)
[2017-10-27] MEDS: cefTRIAXone 1 gm 1 GM/100 ML BAG IVPB SCH (10:19)
[2017-10-27] MEDS: Promethazine 6.25 MG/5 ML CUP PO PRN (10:19)
[2017-10-27] MEDS: MethylPREDNISolone 40 mg Vial IVP SCH ×2 (10:21→21:58)
[2017-10-27] MEDS: Bacitracin 500 Units/gm Oint Foilpak UD TOP SCH ×3 (10:21→17:38)
--- NOTE | 2017-10-27 10:59 | PN ---
DATE: 10/27/2017 REASON FOR CONSULTATION: Followup coronary artery disease; severe aortic stenosis; nosebleed; cirrhosis; chest pain, possible nonischemic; no evidence of myocardial infarction. SUBJECTIVE: Patient denies any chest pain, shortness of breath, or any palpitations. OBJECTIVE: GENERAL: Not in apparent distress. VITAL SIGNS: Temperature afebrile, heart rate 90, blood pressure 115/54. HEENT: PERRLA. Extraocular muscles intact. NECK: Supple. No carotid bruits or thyromegaly. CHEST: Clear to auscultation. HEART: S1 and S2, regular. ABDOMEN: Soft. EXTREMITIES: Clubbing and cyanosis negative. LABORATORY DATA: Blood workup as follows: WBC 5.1, hemoglobin 8.2, hematocrit 26.0, platelet count 71. Chemistry shows sodium 130, potassium 4.5, chloride 107, carbon dioxide 27, anion gap of 8. BUN 22, creatinine 0.6. Troponin is 0.15. IMPRESSION: Nonischemic myocardial infarction; severe aortic stenosis; cryptogenic cirrhosis; severe thrombocytopenia; coronary artery disease, status post PTCA; ascites; leg edema; cirrhosis; recurrent nosebleed, cannot take aspirin and Plavix. Without aspirin and Plavix, the patient has spontaneous nosebleed multiple times. Not a candidate for long-term anticoagulation. RECOMMENDATIONS: Continue diuretics, continue beta-kirby as blood pressure is tolerated, we will increase to 25 p.o. b.i.d. metoprolol. Continue Imdur 30 mg. Discussed with the patient, we will treat conservatively. The patient is a very poor candidate for any invasive procedure. Cannot continue long-term anticoagulation because of underlying comorbidity and nosebleed and severe thrombocytopenia and cryptogenic cirrhosis. When the patient is in a better shape, refused TAVR at that time and apparently it looks like we missed the boat, not it will be more detrimental than beneficial for her. Because obviously, the patient cannot continue dual antiplatelet therapy and frequent nosebleed. Pablo Guillermo MD
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
--- NOTE | 2017-10-27 14:45 | PN ---
DATE: 10/27/2017 PULMONARY PROGRESS NOTE REFERRING PHYSICIAN: Kristin Rg MD. SUBJECTIVE: The patient is sitting out of bed to reclining chair. Night was unremarkable. Feels better. Decreased cough. Decreased shortness of breath. No nausea. No vomiting. No diarrhea. Decreased leg swelling and erythema. OBJECTIVE: GENERAL: In no acute distress. VITAL SIGNS: Temperature is 98, heart rate is 85, respiratory rate is 18, blood pressure 114/59, pulse ox 98% on nasal cannula. HEENT: Moist mucous membrane. Crowded airway. Mallampati score is 4. NECK: Supple. No JVD. LUNGS: Have a few scattered rhonchi. HEART: S1 and S2. ABDOMEN: Soft, nontender. No organomegaly. EXTREMITY: Has erythema of the lower extremity with edema. NEUROLOGICAL: Awake and alert. Follows simple command. LABORATORY DATA: Shows hemoglobin 8.2, hematocrit 26.0, WBC 5.1, platelet count is 71. Sodium 138, potassium 4.5, chloride 107, bicarbonate 27, BUN 22, creatinine 0.6, glucose 168, calcium is 9.8, phosphorus 3.4, magnesium 2.0, AST 21, ALT 25, alk phos is 522, troponin less than 0.15, albumin is 2.3. Microbiology: Blood culture has been negative. MEDICATIONS: She is on Afrin 0.5 mg inhaled twice a day p.r.n., Aldactone 25 mg twice a day, bacitracin ointment to affected area 3 times a day, DuoNeb every 6 hours p.r.n., isosorbide 30 mg daily, Lasix is 80 mg twice a day, metoprolol tartrate 25 mg daily, nasal saline dose as needed basis, Pepcid 20 mg daily, Phenergan 1 mg every 4 hours p.r.n., Rocephin 1 g daily, Solu-Medrol 20 mg every 12 hours, vancomycin 1 g IV every 12 hours, Vaseline ointment to affected area, Xopenex inhaled every 8 hours. 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 Pulmonary point of view, she is doing okay. Continue IV and inhaled bronchodilator. Continue antibiotics. Sleep apnea precaution. Avoid nocturnal sedation. Elevate lower extremity. Continue antibiotics. Gastric prophylaxis. Continue high dose of steroids. Thank you and we will follow with you. Pablo Cantor MD
--- NOTE | 2017-10-27 15:58 | CP.PCM.PN ---
Subjective - Date & Time of Evaluation Date of Evaluation: 10/27/17 Time of Evaluation: 15:56 - Subjective Subjective: Patient seen and examined doing well no further bleeding O2 now humidified Objective - Vital Signs/Intake and Output Vital Signs (last 24 hours): Temp Pulse Resp BP Pulse Ox 98 F 85 18 114/59 L 98 10/27/17 12:00 10/27/17 12:00 10/27/17 12:00 10/27/17 12:00 10/27/17 05:47 Intake and Output: 10/27/17 10/27/17 06:59 18:59 Intake Total 330 Output Total 550 Balance -220 - Medications Medications: Current Medications Albuterol/Ipratropium (Duoneb 3 Mg/0.5 Mg (3 Ml) Ud) 3 ml IH [id number] PRN PRN Reason: Shortness of Breath Bacitracin (Bacitracin) 1 ea TOP TID [facility] Last Admin: 10/27/17 14:38 Dose: 1 ea Emollient Ointment (Vaseline Oint) 5 gm TOP DAILY PRN PRN Reason: Dry skin Famotidine (Pepcid) 20 mg PO DAILY [facility] Last Admin: 10/27/17 10:22 Dose: 20 mg Furosemide (Lasix) 80 mg IVP BID [facility] Last Admin: 10/27/17 10:20 Dose: 80 mg Ceftriaxone Sodium (Rocephin 1 Gram Ivpb) 1 gm in 100 mls @ 100 mls/hr IVPB DAILY [facility] PRN Reason: Protocol Last Admin: 10/27/17 10:19 Dose: 100 mls/hr Vancomycin HCl (Vancomycin 1gm) 1 gm in 250 mls @ 167 mls/hr IVPB Q12H [facility] PRN Reason: Protocol Last Admin: 10/27/17 14:39 Dose: 167 mls/hr Isosorbide Mononitrate (Imdur Er) 30 mg PO DAILY [facility] Last Admin: 10/27/17 10:22 Dose: 30 mg Lactic Acid (Lac-Hydrin 12% Cream (140 G)) 1 ea TOP BID [facility] Last Admin: 10/27/17 10:19 Dose: 1 applic Levalbuterol HCl (Xopenex) 0.63 mg IH TIDRESP [facility] Last Admin: 10/27/17 13:31 Dose: 0.63 mg Magnesium Hydroxide (Milk Of Magnesia) 30 ml PO Q4 PRN PRN Reason: Constipation Last Admin: 10/27/17 10:19 Dose: 30 ml Methylprednisolone (Solu-Medrol) 20 mg IVP Q12 [facility] Last Admin: 10/27/17 10:21 Dose: 20 mg Metoprolol Tartrate (Lopressor) 25 mg PO DAILY [facility] Last Admin: 10/27/17 10:21 Dose: 25 mg Oxymetazoline HCl (Afrin 0.05%) 0 ml NS Q12H [facility] Last Admin: 10/27/17 13:44 Dose: Not Given Promethazine HCl (Phenergan Syrup) 1 mg PO Q4H PRN PRN Reason: Cough Last Admin: 10/27/17 10:19 Dose: 1 mg Sodium Chloride ([place] Nasal [place]) 0 ml NS QID [facility] Last Admin: 10/27/17 14:38 Dose: 2 spr Spironolactone (Aldactone) 25 mg PO BID [facility] Last Admin: 10/27/17 10:21 Dose: 25 mg - Labs Labs: 10/27/17 05:30 10/27/17 05:30 PT 13.7 SECONDS (9.4-12.5) H 10/24/17 23:10 INR 1.20 (0.93-1.08) H 10/24/17 23:10 APTT 34.7 Seconds (25.1-36.5) 10/24/17 23:10 - Head Exam Head Exam: ATRAUMATIC, NORMAL INSPECTION, NORMOCEPHALIC - Eye Exam Eye Exam: EOMI, Normal appearance Pupil Exam: NORMAL ACCOMODATION - ENT Exam ENT Exam: Mucous Membranes Dry, Normal External Ear Exam Additional comments: nose no bleeding septum deviation - Skin Skin Exam: Normal Color, Warm Assessment and Plan (1) Deviated septum Status: Acute (2) Anterior epistaxis Status: Acute (3) Frequent falls Status: Acute (4) Gait instability Status: Acute (5) Leg edema Status: Acute (6) Respiratory distress Status: Acute (7) Swelling of lower extremity Status: Acute (8) Thrombocytopenia Status: Acute (9) Dyspnea Status: Acute - Assessment and Plan (Free Text) Plan: cont with saline and humidification of O2, follow
[2017-10-28] MEDS: Oxymetazoline 0.05% Nasal Spray (30 ml) NS SCH ×2 (01:36→14:58)
[2017-10-28] MEDS: Vancomycin 1gm in NS 250ml 1 GM/250 ML BAG IVPB SCH ×2 (01:36→14:57)
[2017-10-28] MEDS: Levalbuterol 0.63 MG/3 ML Inhal Soln UD IH SCH ×3 (07:24→20:10)
[2017-10-28] MEDS: MethylPREDNISolone 40 mg Vial IVP SCH ×2 (10:54→21:39)
[2017-10-28] MEDS: cefTRIAXone 1 gm 1 GM/100 ML BAG IVPB SCH (10:54)
[2017-10-28] MEDS: Bacitracin 500 Units/gm Oint Foilpak UD TOP SCH ×3 (10:56→18:49)
--- NOTE | 2017-10-28 12:38 | CP.PCM.PN ---
Subjective - Date & Time of Evaluation Date of Evaluation: 10/28/17 Time of Evaluation: 10:00 - Subjective Subjective: OOB in chair, NAD, denies chest pain, no SOB Objective - Vital Signs/Intake and Output Vital Signs (last 24 hours): Temp Pulse Resp BP Pulse Ox 97.9 F 71 20 129/66 99 10/28/17 12:15 10/28/17 12:15 10/28/17 12:15 10/28/17 12:15 10/28/17 05:57 Intake and Output: 10/28/17 10/28/17 06:59 18:59 Intake Total 250 Output Total 1500 Balance -1250 - Medications Medications: Current Medications Albuterol/Ipratropium (Duoneb 3 Mg/0.5 Mg (3 Ml) Ud) 3 ml IH [id number] PRN PRN Reason: Shortness of Breath Bacitracin (Bacitracin) 1 ea TOP TID [facility] Last Admin: 10/28/17 10:56 Dose: 1 ea Emollient Ointment (Vaseline Oint) 5 gm TOP DAILY PRN PRN Reason: Dry skin Famotidine (Pepcid) 20 mg PO DAILY [facility] Last Admin: 10/28/17 10:56 Dose: 20 mg Furosemide (Lasix) 80 mg IVP BID [facility] Last Admin: 10/28/17 10:56 Dose: 80 mg Ceftriaxone Sodium (Rocephin 1 Gram Ivpb) 1 gm in 100 mls @ 100 mls/hr IVPB DAILY [facility] PRN Reason: Protocol Last Admin: 10/28/17 10:54 Dose: 100 mls/hr Vancomycin HCl (Vancomycin 1gm) 1 gm in 250 mls @ 167 mls/hr IVPB Q12H [facility] PRN Reason: Protocol Last Admin: 10/28/17 01:36 Dose: 167 mls/hr Isosorbide Mononitrate (Imdur Er) 30 mg PO DAILY [facility] Last Admin: 10/28/17 10:56 Dose: 30 mg Lactic Acid (Lac-Hydrin 12% Cream (140 G)) 1 ea TOP BID [facility] Last Admin: 10/27/17 17:38 Dose: 1 applic Levalbuterol HCl (Xopenex) 0.63 mg IH TIDRESP [facility] Last Admin: 10/28/17 07:24 Dose: 0.63 mg Magnesium Hydroxide (Milk Of Magnesia) 30 ml PO Q4 PRN PRN Reason: Constipation Last Admin: 10/27/17 10:19 Dose: 30 ml Methylprednisolone (Solu-Medrol) 20 mg IVP Q12 [facility] Last Admin: 10/28/17 10:54 Dose: 20 mg Metoprolol Tartrate (Lopressor) 25 mg PO DAILY [facility] Last Admin: 10/28/17 10:56 Dose: 25 mg Oxymetazoline HCl (Afrin 0.05%) 0 ml NS Q12H [facility] Last Admin: 10/28/17 01:36 Dose: Not Given Promethazine HCl (Phenergan Syrup) 1 mg PO Q4H PRN PRN Reason: Cough Last Admin: 10/27/17 10:19 Dose: 1 mg Sodium Chloride ([place] Nasal [place]) 0 ml NS QID [facility] Last Admin: 10/28/17 10:57 Dose: 1 spr Spironolactone (Aldactone) 25 mg PO BID [facility] Last Admin: 10/28/17 10:56 Dose: 25 mg - Labs Labs: 10/27/17 05:30 10/27/17 05:30 PT 13.7 SECONDS (9.4-12.5) H 10/24/17 23:10 INR 1.20 (0.93-1.08) H 10/24/17 23:10 APTT 34.7 Seconds (25.1-36.5) 10/24/17 23:10 - Respiratory Exam Respiratory Exam: Clear to Ausculation Bilateral, NORMAL BREATHING PATTERN - Cardiovascular Exam Cardiovascular Exam: REGULAR RHYTHM - GI/Abdominal Exam GI & Abdominal Exam: Soft, Normal Bowel Sounds - Extremities Exam Extremities Exam: Pedal Edema - Neurological Exam Neurological Exam: Alert, Awake - Skin Skin Exam: Erythema Assessment and Plan (1) Bilateral cellulitis of lower leg Status: Acute (2) CHF (congestive heart failure) Status: Acute (3) Anemia Status: Acute - Assessment and Plan (Free Text) Plan: continue IV Vanco/Rocephin, physical therapy
[2017-10-28] MEDS: Ammonium Lactate 12% Cream (140 g) TOP SCH ×2 (13:37→18:50)
--- NOTE | 2017-10-28 14:52 | PN ---
DATE: 10/28/2017 REFERRING PHYSICIAN: Kristin Rg MD. SUBJECTIVE: She is lying in the bed, head at 45 degrees. Night was unremarkable. Feels better. Mild cough. No nausea, no vomiting, no diarrhea. Decreased leg swelling. OBJECTIVE: GENERAL: In no acute distress. VITAL SIGNS: Temperature is 98, heart rate is 79, respiratory rate is 20, blood pressure 119/59, and pulse ox 99% on 2 L nasal cannula. HEENT: Moist mucous membrane. Crowded airway. NECK: Supple. No JVD. LUNGS: Have very few scattered rhonchi. HEART: S1, S2. ABDOMEN: Soft, nontender, nondistended. EXTREMITIES: Decreased edema and erythema. NEUROLOGIC: Awake and alert. Follows simple commands. MEDICATIONS: She is on Afrin p.r.n. basis, Aldactone 25 mg twice a day, bacitracin ointment to affected area, albuterol and Atrovent nebulizer q.6 hours p.r.n., isosorbide 30 mg daily, Lasix 80 mg twice a day, metoprolol tartrate 25 mg daily, milk of magnesia p.r.n. basis, Pepcid 20 mg daily, promethazine 1 mg q.4 hours p.r.n., Rocephin 1 g daily, Solu-Medrol 20 mg q.12 hours, vancomycin 1 g IV q.12 hours, Vaseline ointment to affected area, Xopenex inhaled q.8 hours round the clock. LABORATORY DATA: Reviewed, which shows blood sugar this morning 165. 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 Pulmonary point of view, she is slowing improving. Continue antibiotics and bronchodilator. Keep head at 45 degrees. Sleep apnea precaution. Avoid sedation. May use nasal saline, petroleum jelly p.r.n. basis; out of bed to chair; physical therapy. Follow up labs in the morning. Thank you and we will follow with you. Pablo Cantor MD
--- NOTE | 2017-10-28 16:00 | PN ---
DATE: 10/28/2017 SUBJECTIVE: The patient is in bed, in no acute distress, nontoxic. No fevers. PHYSICAL EXAMINATION: VITAL SIGNS: Temperature is 97, blood pressure is 126/60, respiratory rate of 20, heart rate of 84. HEENT: Unremarkable. NECK: Supple. LUNGS: Have decreased breath sounds. HEART: Normal S1, S2. ABDOMEN: Soft, nontender. LABORATORY DATA: Reveals the patient's white count of 5.1, hemoglobin of 9, platelets of 71. BUN of 22, creatinine of 0.6. Troponin is 0.15. Urinalysis is noted. Microbiology, the blood cultures are negative. Review of orders reveals the patient to be on ceftriaxone and Solu-Medrol. ASSESSMENT: This is a 77-year-old female who was seen early this morning in room 260, bed two with bilateral lower extremity cellulitis and chronic venous stasis, which is improving, with a history of skin and skin structure infection, T12 vertebral compression, diabetic, hypertensive, currently on ceftriaxone, and cultures negative. Overall, improving, today is day #4. The patient had also received intermittent vancomycin. The patient is on Solu-Medrol. Most likely, if the legs continue to improve, maybe able to switch to p.o. antibiotics. Abram Benitez MD
[2017-10-29] MEDS: Oxymetazoline 0.05% Nasal Spray (30 ml) NS SCH ×2 (02:16→12:31)
[2017-10-29 06:56] LABS: ALB/GLOB RATIO 0.9 (1.1-1.8); ALBUMIN 2.4 g/dL (3.0-4.8); ALT/SGPT 38 U/L (7-56); AST/SGOT 30 U/L (14-36); BLOOD UREA NITROGEN 29 mg/dL (7-21); CALCIUM 9.8 mg/dL (8.4-10.5); GFR AFRICAN-AMERICAN > 60; GFR NON-AFRICAN AMERICAN > 60
[2017-10-29] MEDS: Levalbuterol 0.63 MG/3 ML Inhal Soln UD IH SCH ×3 (07:39→20:34)
[2017-10-29] MEDS: cefTRIAXone 1 gm 1 GM/100 ML BAG IVPB SCH (09:20)
[2017-10-29] MEDS: Ammonium Lactate 12% Cream (140 g) TOP SCH ×2 (09:20→18:18)
[2017-10-29] MEDS: MethylPREDNISolone 40 mg Vial IVP SCH ×2 (09:20→21:27)
[2017-10-29] MEDS: Bacitracin 500 Units/gm Oint Foilpak UD TOP SCH ×3 (09:20→18:13)
--- NOTE | 2017-10-29 11:22 | PN ---
DATE: 10/29/2017 SUBJECTIVE: The patient is in bed, in no acute distress, nontoxic. PHYSICAL EXAMINATION: VITAL SIGNS: Temperature is 98, blood pressure is 112/70, respiratory rate of 16. HEENT: Unremarkable. NECK: Supple. LUNGS: Have decreased breath sounds. HEART: Normal S1, S2. ABDOMEN: Soft, nontender. LABORATORY DATA: Reveals the patient's white count is 5.1, hemoglobin of 8.2. Chemistries reveal a BUN of 29, creatinine of 0.6. Urinalysis is noted. Microbiology reveals the blood cultures are negative. Review of orders reveals the patient is on ceftriaxone. ASSESSMENT AND PLAN: This is a 77-year-old female who was seen early this morning in 260 with bilateral lower extremity cellulitis, it appears on exam to be greatly improved. The patient with chronic venous stasis with a history of skin and skin structure infection, T12 vertebral compression, diabetic, hypertensive, day #5 of ceftriaxone, may discontinue the antibiotic after today's last dose and switch to p.o. next 24 hours. The patient is also on IV Solu-Medrol. We will follow with you. Abram Benitez MD
[2017-10-29] MEDS ORDERED: Benzocaine/Menthol (Cepacol) Lozenge MT PRN (14:33)
--- NOTE | 2017-10-29 15:27 | CP.PCM.PN ---
Subjective - Date & Time of Evaluation Date of Evaluation: 10/29/17 Time of Evaluation: 14:00 - Subjective Subjective: had episode chest discomfort earlier, denies chest pain at present, no SOB, c/o sore throat, no cough, no dysphagia, denies nausea, vomiting, no diaphoresis Objective - Vital Signs/Intake and Output Vital Signs (last 24 hours): Temp Pulse Resp BP Pulse Ox 97.9 F 64 19 125/64 98 10/29/17 12:00 10/29/17 14:00 10/29/17 12:00 10/29/17 12:00 10/29/17 06:00 Intake and Output: 10/29/17 10/29/17 06:59 18:59 Intake Total 1080 Output Total 2 Balance 1078 - Medications Medications: Current Medications Albuterol/Ipratropium (Duoneb 3 Mg/0.5 Mg (3 Ml) Ud) 3 ml IH [id number] PRN PRN Reason: Shortness of Breath Bacitracin (Bacitracin) 1 ea TOP TID [facility] Last Admin: 10/29/17 13:39 Dose: 1 ea Benzocaine/Menthol (Cepacol Sore Throat) 1 andres MT Q2H PRN PRN Reason: Sore Throat Emollient Ointment (Vaseline Oint) 5 gm TOP DAILY PRN PRN Reason: Dry skin Famotidine (Pepcid) 20 mg PO DAILY [facility] Last Admin: 10/29/17 11:40 Dose: 20 mg Furosemide (Lasix) 80 mg IVP BID [facility] Last Admin: 10/29/17 09:22 Dose: 80 mg Ceftriaxone Sodium (Rocephin 1 Gram Ivpb) 1 gm in 100 mls @ 100 mls/hr IVPB DAILY [facility] PRN Reason: Protocol Last Admin: 10/29/17 09:20 Dose: 100 mls/hr Isosorbide Mononitrate (Imdur Er) 30 mg PO DAILY [facility] Last Admin: 10/29/17 09:20 Dose: 30 mg Lactic Acid (Lac-Hydrin 12% Cream (140 G)) 1 ea TOP BID [facility] Last Admin: 10/29/17 09:20 Dose: 1 applic Levalbuterol HCl (Xopenex) 0.63 mg IH TIDRESP [facility] Last Admin: 10/29/17 13:57 Dose: 0.63 mg Magnesium Hydroxide (Milk Of Magnesia) 30 ml PO Q4 PRN PRN Reason: Constipation Last Admin: 10/27/17 10:19 Dose: 30 ml Methylprednisolone (Solu-Medrol) 20 mg IVP Q12 [facility] Last Admin: 10/29/17 09:20 Dose: 20 mg Metoprolol Tartrate (Lopressor) 25 mg PO DAILY [facility] Last Admin: 10/29/17 09:21 Dose: 25 mg Oxymetazoline HCl (Afrin 0.05%) 0 ml NS Q12H [facility] Last Admin: 10/29/17 12:31 Dose: Not Given Promethazine HCl (Phenergan Syrup) 1 mg PO Q4H PRN PRN Reason: Cough Last Admin: 10/27/17 10:19 Dose: 1 mg Sodium Chloride ([place] Nasal [place]) 0 ml NS QID [facility] Last Admin: 10/29/17 13:40 Dose: 1 spr Spironolactone (Aldactone) 25 mg PO BID [facility] Last Admin: 10/29/17 09:21 Dose: 25 mg - Labs Labs: 10/27/17 05:30 10/29/17 06:00 PT 13.7 SECONDS (9.4-12.5) H 10/24/17 23:10 INR 1.20 (0.93-1.08) H 10/24/17 23:10 APTT 34.7 Seconds (25.1-36.5) 10/24/17 23:10 - Respiratory Exam Respiratory Exam: Rales, NORMAL BREATHING PATTERN - Cardiovascular Exam Cardiovascular Exam: REGULAR RHYTHM, Murmur - GI/Abdominal Exam GI & Abdominal Exam: Soft, Normal Bowel Sounds - Extremities Exam Extremities Exam: Normal Inspection - Neurological Exam Neurological Exam: Alert, Awake - Skin Skin Exam: Dry, Warm Assessment and Plan (1) Bilateral cellulitis of lower leg Status: Acute (2) CHF (congestive heart failure) Status: Acute (3) Anemia Status: Acute (4) Angina concurrent with and due to arteriosclerosis of coronary artery Status: Acute (5) Elevated troponin Status: Acute - Assessment and Plan (Free Text) Plan: monitor troponin levels, cardiology follow-up, Dr. Rg to resume care of patient in am
[2017-10-29] MEDS ORDERED: Aluminum Hydroxide/Magnesium 30 ML, DiphenhydrAMINE 75 MG, Lidocaine 2% Viscous 30 ML PO PRN (18:01)
--- NOTE | 2017-10-29 18:54 | PN ---
DATE: PULMONARY PROGRESS NOTE REFERRING PHYSICIAN: Dr. Kristin Rg. SUBJECTIVE: She is up in a chair, able to ambulate in the room, feels better, has some sore throat. Cough is better. No nausea, no vomiting, no diarrhea. Still has some leg swelling and erythema. OBJECTIVE: GENERAL: In no acute distress. VITAL SIGNS: Temperature is 98, heart rate is 64, respiratory rate is 18, blood pressure 125/64, pulse ox 98% on nasal cannula. HEENT: Moist mucous membrane. Crowded airway. NECK: Supple. No JVD. There is no thrush. LUNGS: Have a few scattered rhonchi. HEART: S1, S2. ABDOMEN: Soft, nontender, no organomegaly. EXTREMITIES: Do have edema and erythema. NEUROLOGIC: Awake, alert, and follows simple commands. MEDICATIONS: She is on Afrin nasally p.r.n. basis, Aldactone 25 mg twice a day, bacitracin ointment to affected area three times a day, Cepacol lozenges every 2 hours p.r.n., DuoNeb every 6 hours p.r.n., Imdur 30 mg daily, Lasix 80 mg twice a day, metoprolol tartrate 25 mg daily, milk of magnesia p.r.n. basis, Pepcid 20 mg daily, promethazine every 4 hour, Rocephin 1 g IV daily, Solu-Medrol 20 mg every 12 hour, Vaseline at affected area, Xopenex inhaled every 8 hour. LABORATORY DATA: Shows hemoglobin 8.2, hematocrit 26.0, WBC 5.1. Sodium 136, potassium 4.8, chloride 100, bicarbonate 32, BUN 29, creatinine 0.6, glucose 195, calcium 9.8. AST 30, ALT 38, alk phos is 70. Troponin 0.11. Albumin is 2.4. Microbiology: Blood culture has been negative. 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 Pulmonary point of view, she is doing okay. Sleep apnea precaution. Keep head at 45 degrees. Avoid sedation. May add nystatin or Magic mouth wash swish and swallow. Continue diuretics. Fall precaution. Thank you and we will follow with you. Pablo Cantor MD
[2017-10-29] MEDS: Nystatin 100,000 Units/ml Oral Susp 5 ml UD PO SCH (21:27)
--- NOTE | 2017-10-29 23:17 | CARD ---
APPROVED REPORT EKG Measurement Heart [id number] <Conclusion> Sinus rhythm with premature atrial complexes Right bundle branch block Moderate voltage criteria for LVH, may be normal variant T wave abnormality, consider lateral ischemia Abnormal ECG
[2017-10-30] MEDS: Oxymetazoline 0.05% Nasal Spray (30 ml) NS SCH ×2 (01:07→14:54)
[2017-10-30 06:31] LABS: GRAN # 1.61 (1.4-6.5); GRAN % 69.4 % (50.0-68.0); HEMOGLOBIN 8.2 g/dL (12.0-16.0); LYMPH # 0.4 (1.2-3.4); LYMPH % 17.2 % (22.0-35.0); MEAN CELL VOLUME 84.6 fl (80.0-105.0); MEAN CORPUSCULAR HEMOGLOBIN 26.8 pg (25.0-35.0); MEAN CORPUSCULAR HGB CONC 31.7 g/dl (31.0-37.0); MEAN PLATELET VOLUME 9.3 fl (7.0-11.0); MONO # 0.3 (0.1-0.6); MONO % 13.4 % (1.0-6.0); RBC 3.06 10^6/uL (3.5-6.1); RED CELL DISTRIBUTION WIDTH 22.4 % (11.5-14.5)
[2017-10-30 06:39] LABS: WHITE BLOOD COUNT 2.3 10^3/ul (4.5-11.0)
[2017-10-30] MEDS: Levalbuterol 0.63 MG/3 ML Inhal Soln UD IH SCH ×3 (07:19→19:35)
--- NOTE | 2017-10-30 07:47 | PN ---
DATE: SUBJECTIVE: Patient is seen and examined at the bedside, looking comfortable. No more episode of nose bleeding. Getting humidified oxygen. Still having swelling of the legs. Coughing, shortness of breath even going to the bathroom. Sometimes getting dyspneic. Last night feeling palpitation. No fever, no chills. No hematuria or hematochezia. PHYSICAL EXAMINATION: VITAL SIGNS: Temperature 98, pulse 85, respiratory rate 18, blood pressure 114/59, pulse oximetry is 98%. HEENT: Head: Normocephalic, atraumatic. Eyes: PERRLA. Extraocular muscles intact. Conjunctivae clear. Nose: Patent. Mucous membrane moist. NECK: Supple. No carotid bruit. No JVD or thyromegaly. CHEST: Bilaterally symmetrical. HEART: S1, S2 positive. LUNGS: Clear to auscultation. ABDOMEN: Soft. Bowel sounds present. No organomegaly. EXTREMITIES: No edema. No cyanosis. NEUROLOGIC: Patient is awake and alert. Moving all four extremities. No focal deficit. MEDICATIONS: Bacitracin, Pepcid, Lasix, Rocephin, vancomycin, Imdur, lactic acid, Xopenex, milk of magnesia, Solu-Medrol, Lopressor, Phenergan, [place] nasal spray, Aldactone. LABORATORY DATA: White blood cells 5.1, hemoglobin 8.2, hematocrit 26.0, and platelets 71. Sodium 138, potassium 4.5, BUN 22, creatinine 0.6, glucose 158. ASSESSMENT AND PLAN: The patient is a 77-year-old lady with anemia; leukopenia; thrombocytopenia, actually pancytopenia; renal insufficiency; diabetes mellitus; hyperchloremia; dilated nasal septum; anterior epistaxis, now improved; frequent falls; gait instability; swelling of the leg; left leg edema; cellulitis of the leg; respiratory distress; dyspnea. Continue with saline and humidification of the oxygen; as per Dr. Freitas; ENT; seen by Dr. Eugenio Richard, Infectious Disease; and Dr. Cantor, hotel staff member, critical care. She is on Afrin 0.5 mg inhaled twice a day p.r.n. 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 Continue IV and inhaled bronchodilators. Continue antibiotics. Sleep apnea precautions while nocturnal sedation. Elevate lower extremities. Continue antibiotics as per Infectious Disease. Gastric and deep vein thrombosis prophylaxis. Patient was requesting milk of magnesia, I put order. Starting the patient on physical therapy. We will follow up. Kristin Rg MD MTDD
[2017-10-30] MEDS: MethylPREDNISolone 40 mg Vial IVP SCH ×2 (09:46→22:00)
[2017-10-30] MEDS: Ammonium Lactate 12% Cream (140 g) TOP SCH ×2 (09:52→18:58)
[2017-10-30] MEDS: cefTRIAXone 1 gm 1 GM/100 ML BAG IVPB SCH (09:52)
[2017-10-30] MEDS: Bacitracin 500 Units/gm Oint Foilpak UD TOP SCH ×3 (09:53→18:57)
[2017-10-30] MEDS: Nystatin 100,000 Units/ml Oral Susp 5 ml UD PO SCH ×4 (09:53→22:00)
[2017-10-30] MEDS: Promethazine 6.25 MG/5 ML CUP PO PRN (10:13)
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
--- NOTE | 2017-10-30 18:22 | PN ---
DATE: 10/30/2017 REASON FOR THE CONSULTATION AND FOLLOWUP: Coronary artery disease; severe aortic stenosis; recurrent nosebleed; cirrhosis; chest pain, possible ischemic, rule out NV. SUBJECTIVE: The patient denies any chest pain, but states that last night, she had a chest pain, remained for half an hour. PHYSICAL EXAMINATION: GENERAL: Not in any apparent distress, feels very weak. VITAL SIGNS: Temperature afebrile, heart rate 59, blood pressure 119/61. HEENT: PERRLA. Extraocular muscles intact. NECK: Supple. No carotid bruit. No thyromegaly. CHEST: Clear to auscultation. HEART: S1 and S2 regular. ABDOMEN: Soft. EXTREMITIES: Clubbing and cyanosis negative. LABORATORY DATA: Blood workup as follows: WBC 2.3, hemoglobin 8.2, hematocrit 25.9, platelet count 85. Chemistry shows sodium 130, potassium 4.8, chloride 100, carbon dioxide 32, anion gap of 9, BUN 29, creatinine 0.6. Troponin 0.11. Total protein 5.2, albumin 2.4, albumin-globulin ratio 0.9. IMPRESSION: Severe protein-calorie malnutrition, albumin 2.4, which was not present on admission; recurrent nosebleed; thrombocytopenia; cryptogenic cirrhosis; coronary artery disease, stent in 2008; severe aortic stenosis; sleep apnea; very weak, frail. In the last admission, discussed with both sons about the patient's condition and the long-term plan. Since the patient has recurrent nosebleed without any dual antiplatelet therapy, very weak and frail and cannot continue long-term dual antiplatelet therapy because of nosebleed, not a candidate for transcatheter aortic valve replacement. Initially, when the patient was stable, at that time, the patient refused to discuss that with the son last time. Now, we will treat medically, add on nitrates, baby aspirin as tolerated with the nosebleed. Continue metoprolol. We will put low-dose of aspirin and if the nosebleed continues or get worse, we will discontinue baby aspirin. Overall, the patient's condition is critical, long-term prognosis extremely poor because of underlying comorbidity. Continue rehab. Troponin to trend down to 0.1, maximum 0.89 as there is [id number] myocardial infarction. EKG yesterday done that shows normal sinus with premature atrial contraction, right bundle-branch block, left ventricular hypertrophy, ST-T changes. As mentioned, continue isosorbide, nitrate, metoprolol. When the patient is discharged, we will consider Ranexa. Thank you, Dr. Rg, for providing us the opportunity in taking care of the patient, Maria D Sullivan. We will follow with you. Medical treatment for now. The patient will get the benefit from the rehab therapy, physical therapy in the TCU. Pablo Guillermo MD
--- NOTE | 2017-10-30 18:58 | CP.PCM.PN ---
<Nasreen Maradiaga - Last Filed: 10/30/17 18:54> Subjective - Date & Time of Evaluation Date of Evaluation: 10/30/17 Time of Evaluation: 11:30 - Subjective Subjective: Chief Complaint: 77yr female w/ history of CHF, HTN, cirrhosis of liver, COPD, lower extremmity edema, DM II (non-insulin dependent), gastric hernia, hitial hernia, and recurrent epistaxis. Pt admitted to [facility] for intermittent L sided epixstais, CHF, & bilateral lower extremity edema w. possible cellulitis. Today, pt seen out of bed to chair with no distress. Denies any headache, nausea, vomiting, fever, chills, shortness of breath, chest pain, diarrhea, constipation or urinary changes. Objective - Vital Signs/Intake and Output Vital Signs (last 24 hours): Temp Pulse Resp BP Pulse Ox 98 F 68 20 116/60 95 10/30/17 17:15 10/30/17 17:15 10/30/17 17:15 10/30/17 17:15 10/30/17 17:15 Intake and Output: 10/30/17 10/30/17 06:59 18:59 Intake Total 360 780 Output Total 600 7 Balance -240 773 - Medications Medications: Current Medications Albuterol/Ipratropium (Duoneb 3 Mg/0.5 Mg (3 Ml) Ud) 3 ml IH [id number] PRN PRN Reason: Shortness of Breath Bacitracin (Bacitracin) 1 ea TOP TID [facility] Last Admin: 10/30/17 14:55 Dose: 1 ea Benzocaine/Menthol (Cepacol Sore Throat) 1 andres MT Q2H PRN PRN Reason: Sore Throat Last Admin: 10/29/17 15:43 Dose: 1 andres Cephalexin Monohydrate (Keflex) 500 mg PO BID [facility] PRN Reason: Protocol Al Hydrox/Mg Hydrox/Simethicone 30 ml/Diphenhydramine HCl 75 mg/Lidocaine 30 ml 0 ml PO Q2H PRN PRN Reason: Mouth/Throat Pain Emollient Ointment (Vaseline Oint) 5 gm TOP DAILY PRN PRN Reason: Dry skin Famotidine (Pepcid) 20 mg PO DAILY [facility] Last Admin: 10/30/17 09:52 Dose: 20 mg Furosemide (Lasix) 80 mg IVP BID [facility] Last Admin: 10/30/17 09:47 Dose: 80 mg Isosorbide Mononitrate (Imdur Er) 30 mg PO DAILY [facility] Last Admin: 10/30/17 09:52 Dose: 30 mg Lactic Acid (Lac-Hydrin 12% Cream (140 G)) 1 ea TOP BID [facility] Last Admin: 10/30/17 09:52 Dose: 1 applic Levalbuterol HCl (Xopenex) 0.63 mg IH TIDRESP [facility] Last Admin: 10/30/17 13:57 Dose: 0.63 mg Magnesium Hydroxide (Milk Of Magnesia) 30 ml PO Q4 PRN PRN Reason: Constipation Last Admin: 10/27/17 10:19 Dose: 30 ml Methylprednisolone (Solu-Medrol) 20 mg IVP Q12 [facility] Last Admin: 10/30/17 09:46 Dose: 20 mg Metoprolol Tartrate (Lopressor) 25 mg PO DAILY [facility] Last Admin: 10/30/17 10:09 Dose: 25 mg Nystatin (Nystatin Oral Susp) 5 ml PO QID [facility] Last Admin: 10/30/17 14:54 Dose: 5 ml Oxymetazoline HCl (Afrin 0.05%) 0 ml NS Q12H [facility] Last Admin: 10/30/17 14:54 Dose: Not Given Promethazine HCl (Phenergan Syrup) 1 mg PO Q4H PRN PRN Reason: Cough Last Admin: 10/30/17 10:13 Dose: 1 mg Sodium Chloride ([place] Nasal [place]) 0 ml NS QID [facility] Last Admin: 10/30/17 14:53 Dose: 2 spr Spironolactone (Aldactone) 25 mg PO BID [facility] Last Admin: 10/30/17 09:52 Dose: 25 mg - Labs Labs: 10/30/17 05:45 10/29/17 06:00 PT 13.7 SECONDS (9.4-12.5) H 10/24/17 23:10 INR 1.20 (0.93-1.08) H 10/24/17 23:10 APTT 34.7 Seconds (25.1-36.5) 10/24/17 23:10 - Constitutional Appears: Chronically Ill - Head Exam Head Exam: ATRAUMATIC, NORMAL INSPECTION, NORMOCEPHALIC - Eye Exam Eye Exam: Normal appearance - ENT Exam ENT Exam: Mucous Membranes Moist, Normal Exam - Neck Exam Neck Exam: Full ROM, Normal Inspection - Respiratory Exam Respiratory Exam: Clear to Ausculation Bilateral, NORMAL BREATHING PATTERN - Cardiovascular Exam Cardiovascular Exam: +S1, +S2 - GI/Abdominal Exam GI & Abdominal Exam: Soft, Hernia, Normal Bowel Sounds - Extremities Exam Extremities Exam: Full ROM, Joint Swelling Additional comments: BLE +2 edema - Back Exam Back Exam: NORMAL INSPECTION - Neurological Exam Neurological Exam: Alert, Awake, Normal Gait - Psychiatric Exam Psychiatric exam: Normal Affect, Normal Mood - Skin Skin Exam: Intact, Urticaria, Warm Assessment and Plan (1) Proteinuria Status: Acute (2) Hematuria Status: Acute (3) Anterior epistaxis Status: Acute (4) Bilateral cellulitis of lower leg Status: Acute (5) Deviated septum Status: Acute (6) Elevated troponin Status: Acute (7) Acute CHF Status: Acute (8) Anemia Status: Acute (9) Gait instability Status: Acute (10) Thrombocytopenia Status: Acute - Assessment and Plan (Free Text) Plan: PO keflex s/p vancomycin and rocephin. IV lasix. IV solumedryl. Continuous nasal cannula O2 in place. Blood cultures NEGATIVE. GI/VTE prophlyaxis. PT/OT onboard. Consults: Cardio - Dr. Gulilermo ENT - Dr. Oliveros ID - Dr. Benitez Pulmo - Dr. Storm Reviewed: ECG = 10/29/17 ABNORMAL, SR w PAC, R BBB, mod voltage LVH, may be normal variant , T wave abn, consider lateral ischemia CXR = WNL BLE doppler = WNL <Kristin Rg - Last Filed: 11/02/17 08:16> Objective - Vital Signs/Intake and Output Vital Signs (last 24 hours): Temp Pulse Resp BP Pulse Ox 98.5 F 68 18 115/63 97 11/01/17 06:00 11/01/17 18:00 11/01/17 06:00 11/01/17 18:00 11/01/17 06:00 Intake and Output: 11/02/17 11/02/17 06:59 18:59 Intake Total 1140 Balance 1140 - Medications Medications: Current Medications Albuterol/Ipratropium (Duoneb 3 Mg/0.5 Mg (3 Ml) Ud) 3 ml IH [id number] PRN PRN Reason: Shortness of Breath Bacitracin (Bacitracin) 1 ea TOP TID [facility] Last Admin: 11/01/17 17:58 Dose: 1 ea Benzocaine/Menthol (Cepacol Sore Throat) 1 andres MT Q2H PRN PRN Reason: Sore Throat Last Admin: 10/29/17 15:43 Dose: 1 andres Cephalexin Monohydrate (Keflex) 500 mg PO BID [facility] PRN Reason: Protocol Last Admin: 11/01/17 17:57 Dose: 500 mg Al Hydrox/Mg Hydrox/Simethicone 30 ml/Diphenhydramine HCl 75 mg/Lidocaine 30 ml 0 ml PO Q2H PRN PRN Reason: Mouth/Throat Pain Diphenhydramine HCl (Benadryl) 25 mg PO Q6 PRN PRN Reason: Itching / Pruritus Diphenhydramine HCl (Benadryl Maximum Strength 1%) 0 ea TOP Q6H PRN PRN Reason: Itching / Pruritus Emollient Ointment (Vaseline Oint) 5 gm TOP DAILY PRN PRN Reason: Dry skin Famotidine (Pepcid) 20 mg PO DAILY [facility] Last Admin: 11/01/17 09:32 Dose: 20 mg Furosemide (Lasix) 80 mg IVP BID [facility] Last Admin: 11/01/17 18:00 Dose: 80 mg Isosorbide Mononitrate (Imdur Er) 30 mg PO DAILY [facility] Last Admin: 11/01/17 09:32 Dose: 30 mg Lactic Acid (Lac-Hydrin 12% Cream (140 G)) 1 ea TOP BID [facility] Last Admin: 11/01/17 17:58 Dose: 1 applic Levalbuterol HCl (Xopenex) 0.63 mg IH TIDRESP [facility] Last Admin: 11/02/17 07:16 Dose: 0.63 mg Magnesium Hydroxide (Milk Of Magnesia) 30 ml PO Q4 PRN PRN Reason: Constipation Last Admin: 10/27/17 10:19 Dose: 30 ml Metoprolol Tartrate (Lopressor) 12.5 mg PO BID [facility] Last Admin: 11/01/17 18:00 Dose: 12.5 mg Nystatin (Nystatin Oral Susp) 5 ml PO QID [facility] Last Admin: 11/01/17 22:15 Dose: 5 ml Oxymetazoline HCl (Afrin 0.05%) 0 ml NS Q12H [facility] Last Admin: 11/01/17 12:03 Dose: 2 spr Prednisone (Prednisone Tab) 10 mg PO DAILY [facility] Promethazine HCl (Phenergan Syrup) 1 mg PO Q4H PRN PRN Reason: Cough Last Admin: 10/30/17 10:13 Dose: 1 mg Sodium Chloride ([place] Nasal [place]) 0 ml NS QID [facility] Last Admin: 11/01/17 22:18 Dose: 1 spr Spironolactone (Aldactone) 25 mg PO BID [facility] Last Admin: 11/01/17 17:57 Dose: 25 mg - Labs Labs: 11/01/17 06:00 11/01/17 06:00 PT 13.7 SECONDS (9.4-12.5) H 10/24/17 23:10 INR 1.20 (0.93-1.08) H 10/24/17 23:10 APTT 34.7 Seconds (25.1-36.5) 10/24/17 23:10 Assessment and Plan - Assessment and Plan (Free Text) Plan: 77yr female w/ history of CHF, HTN, cirrhosis of liver, COPD, lower extremmity edema, DM II (non-insulin dependent), gastric hernia, hitial hernia, and recurrent epistaxis. Pt admitted to [facility] for intermittent L sided epixstais, CHF, & bilateral lower extremity edema w. possible cellulitis. Today, pt seen out of bed to chair with no distress. Denies any headache, nausea, vomiting, fever, chills, shortness of breath, chest pain, diarrhea, constipation or urinary changes.pt is seen and examined at bed side , looking comfortable , no big change of status , agreed all above , need pt . will f/u
--- NOTE | 2017-10-31 01:24 | PN ---
DATE: 10/30/2017 PULMONARY PROGRESS NOTE REFERRING PHYSICIAN: Dr. Rg. SUBJECTIVE: Patient is lying in the bed. Sleepy and arousable. Day was unremarkable. Feels better. Decreased cough. Decreased shortness of breath. No nausea, no vomiting, no diarrhea. Decreased leg swelling. OBJECTIVE: GENERAL: In no acute distress. VITAL SIGNS: Temperature is 98, heart rate is 68, respiratory rate is 20, blood pressure is 118/61, pulse ox is 95% on room air. HEENT: Moist mucous membrane. Crowded airway. Mallampati score is 4. NECK: Supple. No JVD. LUNGS: Have fair airflow with rhonchi. HEART: S1, S2. ABDOMEN: Soft, nontender, no organomegaly. EXTREMITIES: Does have edema and erythema of the lower extremities. NEUROLOGIC: Awake, alert, and follows simple commands.. MEDICATIONS: Afrin 0.05% nasally twice a day, Aldactone 25 mg twice a day, bacitracin ointment to affected area three times a day, Cepacol lozenges every 2 hours p.r.n., DuoNeb every 6 hours p.r.n., Imdur ER 30 mg daily, Keflex 500 mg twice a day, Lasix 80 mg IV twice a day, metoprolol tartrate 25 mg daily, also ordered Magic mouth wash every 12 hour p.r.n., milk of magnesia p.r.n., nystatin oral suspension 5 mL daily, Pepcid 20 mg daily, Phenergan every 4 hour p.r.n., Solu-Medrol 20 mg every 12 hour, Vaseline ointment at affected area, Xopenex 0.63 three times a day. LABORATORY DATA: Shows hemoglobin 8.2, hematocrit 25.9, WBC 2.3, platelets count is 85. Blood sugar is 179. Microbiology; blood culture is no growth. 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 Pulmonary point of view, doing well. Continue IV inhaled bronchodilators and antibiotics. Gastric prophylaxis. SCDs to lower extremities. Nasal saline, Vaseline ointment to affected area for dryness, physical therapy. Thank you and we will follow with you. Pablo Cantor MD
[2017-10-31] MEDS: Oxymetazoline 0.05% Nasal Spray (30 ml) NS SCH ×2 (01:39→13:07)
[2017-10-31] MEDS: Levalbuterol 0.63 MG/3 ML Inhal Soln UD IH SCH ×3 (07:41→21:00)
[2017-10-31] MEDS: Nystatin 100,000 Units/ml Oral Susp 5 ml UD PO SCH ×4 (09:42→21:21)
[2017-10-31] MEDS: Bacitracin 500 Units/gm Oint Foilpak UD TOP SCH ×3 (09:42→17:25)
[2017-10-31] MEDS: MethylPREDNISolone 40 mg Vial IVP SCH ×2 (09:42→21:21)
[2017-10-31] MEDS: Ammonium Lactate 12% Cream (140 g) TOP SCH ×2 (09:43→17:26)
--- NOTE | 2017-10-31 14:44 | PN ---
DATE: REASON FOR THE CONSULTATION AND FOLLOWUP: Coronary artery disease; severe aortic stenosis; recurrent nosebleed; cirrhosis; chest pain, possible ischemic, rule out [place], is stable now. SUBJECTIVE: Patient denies any chest pain. Denies any shortness of breath. Denies any palpitations. OBJECTIVE: GENERAL: Not in apparent distress, concerned about going home. VITAL SIGNS: Temperature afebrile, heart rate 78, blood pressure 106/55. HEENT: PERRLA. Extraocular muscles intact. NECK: Supple. No carotid bruits or thyromegaly. CHEST: Clear to auscultation. HEART: S1 and S2, regular. ABDOMEN: Soft. EXTREMITIES: Clubbing and cyanosis negative. LABORATORY DATA: Blood workup as follows: WBC 2.3, hemoglobin 8.2, hematocrit 25.9, platelet count 85,000. Chemistry shows sodium , potassium , chloride 100, carbon dioxide 32, anion gap of 9, BUN 29, creatinine 0.6. Troponin is 0.1. Albumin 2.4. IMPRESSION: Severe protein-calorie malnutrition, which was not present on admission; had nosebleed; cirrhosis, cryptogenic; history of coronary artery disease, status post percutaneous transluminal coronary angioplasty in 2008; severe aortic stenosis; stable angina; diabetes; hypertension; hyperlipidemia; cirrhosis; ascites; bilateral chronic cellulitis of lower extremity, not a candidate for cardiac aggressive workup because the patient bleeds multiple times with nosebleed with severe platelet thrombocytopenia without any dual antiplatelet therapy. Discussed with the patient at this time again and discussed with the son in last admission. We will try to treat the patient medically, so continue to treat with Lasix, spironolactone, beta-kirby as tolerated and nitrates. Patient will get the benefit from going to the Transitional Care Unit or long-term extended care facility. Patient is very frail and needs more care. Thank you Dr. Rg for providing us the opportunity in taking care of Maria D Sullivan. Pablo Guillermo MD
--- NOTE | 2017-10-31 20:19 | PN ---
DATE: SUBJECTIVE: The patient is in bed, in no acute distress, nontoxic. PHYSICAL EXAMINATION: VITAL SIGNS: Temperature is 98, blood pressure is 119/50, respiratory rate of 18. HEENT: Unremarkable. NECK: Supple. LUNGS: Decreased breath sounds. HEART: Normal S1 and S2. ABDOMEN: Soft, nontender. LABORATORY DATA: Reveals a white count of 2.3, hemoglobin of 8, platelets of 85. BUN of 29, creatinine of 0.6. Urinalysis is noted. Microbiology reveals the blood culture is negative. Review of orders reveals the patient to be on Keflex, cephalexin. ASSESSMENT AND PLAN: A 77-year-old with bilateral lower extremity cellulitis, more on the right than the left in a patient with chronic venous stasis, history of bilateral lower extremity skin and chronic T12 vertebrae, hypertension, diabetes, coronary artery disease, chronic obstructive lung disease, on p.o. Keflex now day #7 of antibiotics, should complete 7 to 10 days. Abram Benitez MD
--- NOTE | 2017-10-31 23:41 | PN ---
DATE: SUBJECTIVE: Patient is a 77-year-old female. The patient seen and examined at the bedside. Sitting on the chair, feeling comfortable. Cough is better. Shortness of breath is better. No nausea, vomiting or diarrhea. Swelling of the leg is improving. No fever, no chills. No headache, no dizziness. PHYSICAL EXAMINATION: VITAL SIGNS: Temperature 98, blood pressure 120/80, respiratory rate 18. HEENT: Head normocephalic and atraumatic. Eyes: PERRLA. Extraocular muscles intact. Conjunctivae clear. Nose patent. Mucous membrane moist. NECK: Supple. No carotid bruit. No JVD or thyromegaly. CHEST: Bilaterally symmetrical. HEART: S1 and S2 positive. LUNGS: Clear to auscultation. ABDOMEN: Soft. Bowel sounds present. No organomegaly. EXTREMITIES: No edema, no cyanosis. NEUROLOGIC: Patient is awake, alert. Moving all four extremities. No focal deficit. LABORATORY DATA: White blood cell is 2.3, hemoglobin 8.2, hematocrit 25.9, and platelets 85. MEDICATIONS: Aspirin, Aldactone, bacitracin, Cepacol lozenges, DuoNeb, Imdur, Keflex, Lac-Hydrin, Lasix, Lopressor, nystatin oral suspension, [place] nasal spray, Pepcid, Solu-Medrol tapering dose, Vaseline ointment, Xopenex. ASSESSMENT AND PLAN: Ms. Maria D Sullivan is a 77-year-old lady with leukopenia, anemia, thrombocytopenia, practically pancytopenia, diabetes mellitus, has bilateral lower extremity cellulitis, more on the right than the left and is improving, taking antibiotics as per Infectious Disease, history of chronic venous stasis dermatitis, history of bilateral lower extremity skin changes, T12 vertebral fracture, history of hypertension, coronary artery disease, status post cardiac stenting, chronic obstructive lung disease, cirrhosis of the liver. Patient is on p.o. Keflex, now day #7 of antibiotics, should be completed from 7 to 10 days as per Infectious Disease. Seen by the seating captain, Dr. Guillermo. History of protein-calorie malnutrition; history of epistaxis, now stable; has severe aortic stenosis; stable angina; hypertension; hypercholesterolemia; history of ascites; history of nasal cauterization. We will continue Lasix, spironolactone, beta-blockers. Physical therapy, out of bed. Discussion held with nurse practitioner, patient's nurse and length of time discussion done with the patient also. We will follow up. Kristin Rg MD [facility]
--- NOTE | 2017-11-01 00:21 | PN ---
DATE: 10/31/2017 PULMONARY PROGRESS NOTE REFERRING PHYSICIAN: Dr. Rg. SUBJECTIVE: Patient is sitting up in a chair, having dinner. Night was unremarkable. Feels okay. No headache, no rhinitis. No nausea, no vomiting or diarrhea. Decreased leg swelling. OBJECTIVE: GENERAL: In no acute distress. VITAL SIGNS: Temperature is 98, heart rate is 65, respiratory rate is 20, blood pressure 123/56, pulse ox 98% on 3 L nasal cannula. HEENT: Moist mucous membrane. Crowded airway. Mallampati score is IV. NECK: Supple. No JVD. LUNGS: Has fair airflow with few rhonchi. HEART: S1 and S2. ABDOMEN: Soft, nontender. No organomegaly. EXTREMITIES: Does have edema and lower extremity erythema. NEUROLOGIC: Awake and alert, follows simple command. MEDICATIONS: She is on Afrin spray to both nostrils every 12 hours p.r.n., also on Aldactone 25 mg twice a day, bacitracin ointment to affected area three times a day, Cepacol lozenges every 2 hours p.r.n., DuoNeb every 6 hours p.r.n., Imdur ER 30 mg daily, Keflex 500 mg twice a day, Lasix 80 mg twice a day, metoprolol tartrate 25 mg daily, Magic mouth wash every hours p.r.n., nystatin oral suspension 5 mL four times a day, nasal saline four times a day, Pepcid 20 mg daily, Phenergan 1 mg every 4 hours p.r.n., Solu-Medrol 10 mg every 12 hours, Vaseline petroleum jelly to the affected area, Xopenex 0.63 three times a day. LABORATORY DATA: Shows blood sugar is 251. Microbiology, blood cultures are negative. IMPRESSION AND PLAN: Recurrent epistaxis; thrombocytopenia; anemia; chronic obstructive lung disease; cardiomyopathy; history of cardiac diastolic dysfunction; aortic stenosis; pulmonary hypertension; sleep apnea syndrome; cryptogenic cirrhosis; ascites; lower extremity edema; cellulitis, which is improving; activities of daily living dysfunction. Pulmonary point of view, doing okay. May taper off steroids, bronchodilator, keep head at 45 degrees. 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 Gastric prophylaxis. Sequential compression devices to lower extremity. Thank you and we will follow with you. Pablo Cantor MD [facility] # [id number]
[2017-11-01] MEDS: Oxymetazoline 0.05% Nasal Spray (30 ml) NS SCH ×2 (01:18→12:03)
[2017-11-01 06:20] LABS: HEMOGLOBIN 8.6 g/dL (12.0-16.0); MEAN CELL VOLUME 85.9 fl (80.0-105.0); MEAN CORPUSCULAR HGB CONC 31.4 g/dl (31.0-37.0); MEAN PLATELET VOLUME 8.7 fl (7.0-11.0); RBC 3.19 10^6/uL (3.5-6.1); RED CELL DISTRIBUTION WIDTH 21.7 % (11.5-14.5)
[2017-11-01 06:37] LABS: WHITE BLOOD COUNT 2.8 10^3/ul (4.5-11.0)
[2017-11-01 06:57] LABS: BLOOD UREA NITROGEN 35 mg/dL (7-21); CALCIUM 9.5 mg/dL (8.4-10.5); GFR AFRICAN-AMERICAN > 60; GFR NON-AFRICAN AMERICAN > 60
[2017-11-01] MEDS: Levalbuterol 0.63 MG/3 ML Inhal Soln UD IH SCH ×2 (07:56→19:39)
[2017-11-01] MEDS: Nystatin 100,000 Units/ml Oral Susp 5 ml UD PO SCH ×4 (09:33→22:15)
[2017-11-01] MEDS: MethylPREDNISolone 40 mg Vial IVP SCH (09:33)
[2017-11-01] MEDS: Bacitracin 500 Units/gm Oint Foilpak UD TOP SCH ×3 (09:34→17:58)
[2017-11-01] MEDS: Ammonium Lactate 12% Cream (140 g) TOP SCH ×2 (09:34→17:58)
[2017-11-01] MEDS ORDERED: DiphenhydrAMINE 1% 1 EA TUBE TOP PRN (12:57)
--- NOTE | 2017-11-01 13:09 | CP.PCM.DIS ---
<Kristin Rg - Last Filed: 11/02/17 08:56> Provider - Provider Date of Admission: 10/25/17 13:02 Attending physician: Kristin Rg MD Primary care physician: Kristin Rg MD Hospital Course - Lab Results Lab Results: Most Recent Lab Values WBC 2.8 10^3/ul (4.5-11.0) L* D 11/01/17 06:00 RBC 3.19 10^6/uL (3.5-6.1) L 11/01/17 06:00 Hgb 8.6 g/dL (12.0-16.0) L 11/01/17 06:00 Hct 27.4 % (36.0-48.0) L 11/01/17 06:00 MCV 85.9 fl (80.0-105.0) 11/01/17 06:00 MCH 27.0 pg (25.0-35.0) 11/01/17 06:00 MCHC 31.4 g/dl (31.0-37.0) 11/01/17 06:00 RDW 21.7 % (11.5-14.5) H 11/01/17 06:00 Plt Count 84 10^3/uL (120.0-450.0) L 11/01/17 06:00 MPV 8.7 fl (7.0-11.0) 11/01/17 06:00 Gran % 69.4 % (50.0-68.0) H 10/30/17 05:45 Lymph % (Auto) 17.2 % (22.0-35.0) L 10/30/17 05:45 [place] % (Auto) 13.4 % (1.0-6.0) H 10/30/17 05:45 Eos % (Auto) 0.0 % (1.5-5.0) L 10/30/17 05:45 Baso % (Auto) 0.0 % (0.0-3.0) 10/30/17 05:45 Gran # 1.61 (1.4-6.5) 10/30/17 05:45 Lymph # (Auto) 0.4 (1.2-3.4) L 10/30/17 05:45 [place] # (Auto) 0.3 (0.1-0.6) 10/30/17 05:45 Eos # (Auto) 0.0 (0.0-0.7) 10/30/17 05:45 Baso # (Auto) 0.00 K/mm3 (0.0-2.0) 10/30/17 05:45 PT 13.7 SECONDS (9.4-12.5) H 10/24/17 23:10 INR 1.20 (0.93-1.08) H 10/24/17 23:10 APTT 34.7 Seconds (25.1-36.5) 10/24/17 23:10 Sodium 133 mmol/L (132-148) 11/01/17 06:00 Potassium 4.6 mmol/L (3.6-5.0) 11/01/17 06:00 Chloride 94 mmol/L (98-107) L 11/01/17 06:00 Carbon Dioxide 35 mmol/L (21-33) H 11/01/17 06:00 Anion Gap 8 (10-20) L 11/01/17 06:00 BUN 35 mg/dL (7-21) H 11/01/17 06:00 Creatinine 0.8 mg/dl (0.7-1.2) 11/01/17 06:00 Est GFR ( Amer) > 60 11/01/17 06:00 Est GFR (Non-Af Amer) > 60 11/01/17 06:00 POC Glucose (mg/dL) 110 mg/dL (65-110) 11/02/17 06:49 Random Glucose 222 mg/dL (70-110) H 11/01/17 06:00 Hemoglobin A1c 4.8 % (4.2-6.5) 10/25/17 13:10 Calcium 9.5 mg/dL (8.4-10.5) 11/01/17 06:00 Phosphorus 3.4 mg/dL (2.5-4.5) 10/27/17 05:30 Magnesium 2.0 mg/dL (1.7-2.2) 10/27/17 05:30 Iron 49 ug/dL (45-180) 10/25/17 13:10 TIBC 297 ug/dL (265-497) 10/25/17 13:10 % Saturation 16 % (20-55) L 10/25/17 13:10 Total Bilirubin 1.1 mg/dL (0.2-1.3) 10/29/17 06:00 AST 30 U/L (14-36) 10/29/17 06:00 ALT 38 U/L (7-56) 10/29/17 06:00 Alkaline Phosphatase 70 U/L (38-126) 10/29/17 06:00 Lactate Dehydrogenase 522 U/L (333-699) 10/27/17 05:30 Total Creatine Kinase 32 U/L (35-230) L 10/27/17 05:30 Troponin I 0.10 ng/mL 10/30/17 05:45 NT-Pro-B Natriuret Pep 2580 pg/mL (0-450) H 10/25/17 13:10 Total Protein 5.2 g/dL (5.8-8.3) L 10/29/17 06:00 Albumin 2.4 g/dL (3.0-4.8) L 10/29/17 06:00 Globulin 2.8 gm/dL 10/29/17 06:00 Albumin/Globulin Ratio 0.9 (1.1-1.8) L 10/29/17 06:00 Triglycerides 39 mg/dL (35-160) 10/25/17 13:10 Cholesterol 150 mg/dL (130-200) 10/25/17 13:10 LDL Cholesterol Direct 70 mg/dL (0-129) 10/25/17 13:10 HDL Cholesterol 51 mg/dL (29-60) 10/25/17 13:10 Vitamin B12 299 pg/mL (239-931) 10/25/17 13:10 Folate 10.5 ng/mL 10/25/17 13:10 TSH 3rd Generation 0.50 mIU/mL (0.46-4.68) 10/26/17 06:00 Urine Color Dark yellow (YELLOW) 10/25/17 18:03 Urine Appearance Cloudy (CLEAR) 10/25/17 18:03 Urine pH 5.5 (4.7-8.0) 10/25/17 18:03 Ur Specific [place] 1.025 (1.005-1.035) 10/25/17 18:03 Urine Protein Trace mg/dL (<30 mg/dL) H 10/25/17 18:03 Urine Glucose (UA) Negative mg/dL (NEGATIVE) 10/25/17 18:03 Urine Ketones Negative mg/dL (NEGATIVE) 10/25/17 18:03 Urine Blood Moderate (NEGATIVE) H 10/25/17 18:03 Urine Nitrate Negative (NEGATIVE) 10/25/17 18:03 Urine Bilirubin Negative (NEGATIVE) 10/25/17 18:03 Urine Urobilinogen 0.2 E.U./dL (<1 E.U./dL) 10/25/17 18:03 Ur Leukocyte Esterase Moderate Diana/uL (NEGATIVE) H 10/25/17 18:03 Urine RBC 5 - 10 /hpf (0-2) 10/25/17 18:03 Urine WBC Tntc /hpf (0-6) 10/25/17 18:03 Ur Epithelial Cells 0 - 2 /hpf (0-5) 10/25/17 18:03 Urine Bacteria Mod (NEG) 10/25/17 18:03 - Hospital Course Hospital Course: pt is seen and examined at bed side . looking comfortable , agreed all above , d /d with DOCK MANAGER , and sw . will f/u Discharge Plan - Follow Up Plan Condition: STABLE Disposition: REHAB FACILITY/REHAB UNIT Instructions: Type 1 Diabetes, Low Cholesterol, Saturated Fat, and Trans Fat Diet , Preventing Falls in the Older Adult, Swelling, Heart Failure (GEN), Cellulitis (GEN) Referrals: Kristin Rg MD [Primary Care Provider] - <Nasreen Maradiaga - Last Filed: 11/03/17 12:50> Provider - Provider Date of Admission: 10/25/17 13:02 Attending physician: Kristin Rg MD Primary care physician: Kristin Rg MD Consults: Podiatry - Dr. Garcia Cardio - Dr. Guillermo ENT - Dr. Oliveros ID - Dr. Benitez Pulmo - Dr. Storm Time Spent in preparation of Discharge (in minutes): 45 Diagnosis - Discharge Diagnosis (1) Proteinuria Status: Acute (2) Hematuria Status: Acute (3) Anterior epistaxis Status: Acute (4) Bilateral cellulitis of lower leg Status: Acute (5) Deviated septum Status: Acute (6) Elevated troponin Status: Acute (7) Acute CHF Status: Acute (8) Anemia Status: Acute (9) Gait instability Status: Acute (10) Thrombocytopenia Status: Acute Hospital Course - Lab Results Lab Results: Most Recent Lab Values WBC 2.8 10^3/ul (4.5-11.0) L* D 11/01/17 06:00 RBC 3.19 10^6/uL (3.5-6.1) L 11/01/17 06:00 Hgb 8.6 g/dL (12.0-16.0) L 11/01/17 06:00 Hct 27.4 % (36.0-48.0) L 11/01/17 06:00 MCV 85.9 fl (80.0-105.0) 11/01/17 06:00 MCH 27.0 pg (25.0-35.0) 11/01/17 06:00 MCHC 31.4 g/dl (31.0-37.0) 11/01/17 06:00 RDW 21.7 % (11.5-14.5) H 11/01/17 06:00 Plt Count 84 10^3/uL (120.0-450.0) L 11/01/17 06:00 MPV 8.7 fl (7.0-11.0) 11/01/17 06:00 Gran % 69.4 % (50.0-68.0) H 10/30/17 05:45 Lymph % (Auto) 17.2 % (22.0-35.0) L 10/30/17 05:45 [place] % (Auto) 13.4 % (1.0-6.0) H 10/30/17 05:45 Eos % (Auto) 0.0 % (1.5-5.0) L 10/30/17 05:45 Baso % (Auto) 0.0 % (0.0-3.0) 10/30/17 05:45 Gran # 1.61 (1.4-6.5) 10/30/17 05:45 Lymph # (Auto) 0.4 (1.2-3.4) L 10/30/17 05:45 [place] # (Auto) 0.3 (0.1-0.6) 10/30/17 05:45 Eos # (Auto) 0.0 (0.0-0.7) 10/30/17 05:45 Baso # (Auto) 0.00 K/mm3 (0.0-2.0) 10/30/17 05:45 PT 13.7 SECONDS (9.4-12.5) H 10/24/17 23:10 INR 1.20 (0.93-1.08) H 10/24/17 23:10 APTT 34.7 Seconds (25.1-36.5) 10/24/17 23:10 Sodium 133 mmol/L (132-148) 11/01/17 06:00 Potassium 4.6 mmol/L (3.6-5.0) 11/01/17 06:00 Chloride 94 mmol/L (98-107) L 11/01/17 06:00 Carbon Dioxide 35 mmol/L (21-33) H 11/01/17 06:00 Anion Gap 8 (10-20) L 11/01/17 06:00 BUN 35 mg/dL (7-21) H 11/01/17 06:00 Creatinine 0.8 mg/dl (0.7-1.2) 11/01/17 06:00 Est GFR ( Amer) > 60 11/01/17 06:00 Est GFR (Non-Af Amer) > 60 11/01/17 06:00 POC Glucose (mg/dL) 179 mg/dL (65-110) H 11/01/17 11:17 Random Glucose 222 mg/dL (70-110) H 11/01/17 06:00 Hemoglobin A1c 4.8 % (4.2-6.5) 10/25/17 13:10 Calcium 9.5 mg/dL (8.4-10.5) 11/01/17 06:00 Phosphorus 3.4 mg/dL (2.5-4.5) 10/27/17 05:30 Magnesium 2.0 mg/dL (1.7-2.2) 10/27/17 05:30 Iron 49 ug/dL (45-180) 10/25/17 13:10 TIBC 297 ug/dL (265-497) 10/25/17 13:10 % Saturation 16 % (20-55) L 10/25/17 13:10 Total Bilirubin 1.1 mg/dL (0.2-1.3) 10/29/17 06:00 AST 30 U/L (14-36) 10/29/17 06:00 ALT 38 U/L (7-56) 10/29/17 06:00 Alkaline Phosphatase 70 U/L (38-126) 10/29/17 06:00 Lactate Dehydrogenase 522 U/L (333-699) 10/27/17 05:30 Total Creatine Kinase 32 U/L (35-230) L 10/27/17 05:30 Troponin I 0.10 ng/mL 10/30/17 05:45 NT-Pro-B Natriuret Pep 2580 pg/mL (0-450) H 10/25/17 13:10 Total Protein 5.2 g/dL (5.8-8.3) L 10/29/17 06:00 Albumin 2.4 g/dL (3.0-4.8) L 10/29/17 06:00 Globulin 2.8 gm/dL 10/29/17 06:00 Albumin/Globulin Ratio 0.9 (1.1-1.8) L 10/29/17 06:00 Triglycerides 39 mg/dL (35-160) 10/25/17 13:10 Cholesterol 150 mg/dL (130-200) 10/25/17 13:10 LDL Cholesterol Direct 70 mg/dL (0-129) 10/25/17 13:10 HDL Cholesterol 51 mg/dL (29-60) 10/25/17 13:10 Vitamin B12 299 pg/mL (239-931) 10/25/17 13:10 Folate 10.5 ng/mL 10/25/17 13:10 TSH 3rd Generation 0.50 mIU/mL (0.46-4.68) 10/26/17 06:00 Urine Color Dark yellow (YELLOW) 10/25/17 18:03 Urine Appearance Cloudy (CLEAR) 10/25/17 18:03 Urine pH 5.5 (4.7-8.0) 10/25/17 18:03 Ur Specific [place] 1.025 (1.005-1.035) 10/25/17 18:03 Urine Protein Trace mg/dL (<30 mg/dL) H 10/25/17 18:03 Urine Glucose (UA) Negative mg/dL (NEGATIVE) 10/25/17 18:03 Urine Ketones Negative mg/dL (NEGATIVE) 10/25/17 18:03 Urine Blood Moderate (NEGATIVE) H 10/25/17 18:03 Urine Nitrate Negative (NEGATIVE) 10/25/17 18:03 Urine Bilirubin Negative (NEGATIVE) 10/25/17 18:03 Urine Urobilinogen 0.2 E.U./dL (<1 E.U./dL) 10/25/17 18:03 Ur Leukocyte Esterase Moderate Diana/uL (NEGATIVE) H 10/25/17 18:03 Urine RBC 5 - 10 /hpf (0-2) 10/25/17 18:03 Urine WBC Tntc /hpf (0-6) 10/25/17 18:03 Ur Epithelial Cells 0 - 2 /hpf (0-5) 10/25/17 18:03 Urine Bacteria Mod (NEG) 10/25/17 18:03 - Hospital Course Hospital Course: 77yr female w/ history of CHF, HTN, cirrhosis of liver, COPD, lower extremmity edema, DM II (non-insulin dependent), gastric hernia, hiatial hernia , and recurrent epistaxis. [place] [facility] intermittent L sided epixstais , CHF, & bilateral lower extremity edema w. possible cellulitis. Blood cultures done were NEGATIVE. Pt is s/p vancomycin and rocephin. Pt is on a course of PO keflex. Pt is treated with IV lasix, IV solumedryl, & Continuous nasal cannula O2 in place for her cardiopulmonary issues. Pt is cleared for discharge home with physical therapy.. Reviewed: ECG = 10/29/17 ABNORMAL, SR w PAC, R BBB, mod voltage LVH, may be normal variant , T wave abn, consider lateral ischemia CXR = WNL BLE doppler = WNL - Date & Time of H&P Date of H&P: 11/03/17 Time of H&P: 10:00 Discharge Exam - Head Exam Head Exam: ATRAUMATIC, NORMAL INSPECTION, NORMOCEPHALIC - Eye Exam Eye Exam: Normal appearance Pupil Exam: NORMAL ACCOMODATION - ENT Exam ENT Exam: Mucous Membranes Dry - Neck Exam Neck exam: Full Rom - Respiratory Exam Respiratory Exam: Clear to PA & Lateral, NORMAL BREATHING PATTERN, UNREMARKABLE - Cardiovascular Exam Cardiovascular Exam: +S1, +S2 - GI/Abdominal Exam GI & Abdominal Exam: Hernia, Normal Bowel Sounds - Rectal Exam Rectal Exam: NORMAL INSPECTION - Extremities Exam Extremities exam: tenderness Additional comments: BLE +1, chronic venous stasis - Back Exam Back exam: muscle spasm, NORMAL INSPECTION - Neurological Exam Neurological exam: Alert, Normal Gait, Oriented x3 - Psychiatric Exam Psychiatric exam: Normal Affect, Normal Mood - Skin Skin Exam: Dry, Intact, Urticaria, Warm
--- NOTE | 2017-11-01 14:53 | PN ---
DATE: 11/01/2017 REASON FOR CONSULTATION AND FOLLOWUP: Coronary artery disease, severe aortic stenosis, recurrent nosebleeds, cirrhosis. Chest pain resolved. SUBJECTIVE: The patient denies any chest pain, shortness of breath, or any palpitation. PHYSICAL EXAMINATION: GENERAL: Not in apparent distress and feeling very weak. VITAL SIGNS: Temperature afebrile, heart rate 63, blood pressure 103/52. HEENT: PERRLA. Extraocular muscles intact. NECK: Supple. No carotid bruit or thyromegaly. CHEST: Clear to auscultation. HEART: S1, S2 regular. ABDOMEN: Soft. EXTREMITIES: Clubbing and cyanosis negative. LABORATORY DATA: Blood workup as follows: WBC 2.8, hemoglobin 3.6, platelet count 84. Chemistry shows sodium 130, potassium 4.6, chloride 94, carbon dioxide 35, anion gap of 8, BUN 35, creatinine 0.8. IMPRESSION AND PLAN: Pancytopenia; leukopenia; anemia; and thrombocytopenia; cirrhosis cryptogenic; ascites in the past; bilateral chronic leg cellulitis; history of coronary artery disease, status post percutaneous transluminal coronary angioplasty in 2008; stable angina; diabetes; hypertension; hyperlipidemia; severe aortic stenosis. Because of recurrent nosebleed, obvious above reason as mentioned in the previous note, the patient was decided to be treated medically. The patient will get benefit from Transitional Care Unit. We will discontinue telemetry. Continue aggressive medical treatment. Continue spironolactone. Continue gentle diuretics. Continue isosorbide nitrate and continue beta-kirby and metoprolol 12.5 b.i.d., low dose as blood pressure is tolerated. Continue treatment for chronic obstructive pulmonary disease. Continue diuretics. Overall, the patient's critical long-term prognosis is guarded. The patient is very frail as mentioned in my previous dictation. Consider Hematology/Oncology evaluation for pancytopenia. Thank you, Dr. Rg, for providing us the opportunity in taking care of the patient, Maria D Sullivan. Pablo Guillermo MD
--- NOTE | 2017-11-01 16:39 | CP.PCM.PN ---
Subjective - Date & Time of Evaluation Date of Evaluation: 11/01/17 Time of Evaluation: 16:36 - Subjective Subjective: Patient Doing well denies further bleeding from nose. Scab feeing in nose on left side. Not using O2 at this time. Review of Systems - Constitutional Constitutional: absent: Fever, Chills, Sweats, Weakness - EENT Eyes: As Per HPI Ears: As Per HPI Nose/Mouth/Throat: As Per HPI - Cardiovascular Cardiovascular: As Per HPI - Respiratory Respiratory: As Per HPI - Gastrointestinal Gastrointestinal: As Per HPI - Genitourinary Genitourinary: As Per HPI - Menstruation Menstruation: As Per HPI - Musculoskeletal Musculoskeletal: As Par HPI - Integumentary Integumentary: As Per HPI - Neurological Neurological: As Per HPI - Psychiatric Psychiatric: UNREMARKABLE - Endocrine Endocrine: As Per HPI - Hematologic/Lymphatic Hematologic: As Per HPI Objective - Vital Signs/Intake and Output Vital Signs (last 24 hours): Temp Pulse Resp BP Pulse Ox 98.5 F 73 18 103/55 L 97 11/01/17 06:00 11/01/17 10:00 11/01/17 06:00 11/01/17 09:33 11/01/17 06:00 Intake and Output: 11/01/17 11/01/17 06:59 18:59 Intake Total 420 Balance 420 - Medications Medications: Current Medications Albuterol/Ipratropium (Duoneb 3 Mg/0.5 Mg (3 Ml) Ud) 3 ml IH [id number] PRN PRN Reason: Shortness of Breath Bacitracin (Bacitracin) 1 ea TOP TID [facility] Last Admin: 11/01/17 15:07 Dose: 1 ea Benzocaine/Menthol (Cepacol Sore Throat) 1 andres MT Q2H PRN PRN Reason: Sore Throat Last Admin: 10/29/17 15:43 Dose: 1 andres Cephalexin Monohydrate (Keflex) 500 mg PO BID [facility] PRN Reason: Protocol Last Admin: 11/01/17 09:35 Dose: 500 mg Al Hydrox/Mg Hydrox/Simethicone 30 ml/Diphenhydramine HCl 75 mg/Lidocaine 30 ml 0 ml PO Q2H PRN PRN Reason: Mouth/Throat Pain Diphenhydramine HCl (Benadryl) 25 mg PO Q6 PRN PRN Reason: Itching / Pruritus Diphenhydramine HCl (Benadryl Maximum Strength 1%) 0 ea TOP Q6H PRN PRN Reason: Itching / Pruritus Emollient Ointment (Vaseline Oint) 5 gm TOP DAILY PRN PRN Reason: Dry skin Famotidine (Pepcid) 20 mg PO DAILY [facility] Last Admin: 11/01/17 09:32 Dose: 20 mg Furosemide (Lasix) 80 mg IVP BID [facility] Last Admin: 11/01/17 09:33 Dose: 80 mg Isosorbide Mononitrate (Imdur Er) 30 mg PO DAILY [facility] Last Admin: 11/01/17 09:32 Dose: 30 mg Lactic Acid (Lac-Hydrin 12% Cream (140 G)) 1 ea TOP BID [facility] Last Admin: 11/01/17 09:34 Dose: 1 applic Levalbuterol HCl (Xopenex) 0.63 mg IH TIDRESP [facility] Last Admin: 11/01/17 07:56 Dose: 0.63 mg Magnesium Hydroxide (Milk Of Magnesia) 30 ml PO Q4 PRN PRN Reason: Constipation Last Admin: 10/27/17 10:19 Dose: 30 ml Metoprolol Tartrate (Lopressor) 12.5 mg PO BID [facility] Last Admin: 11/01/17 09:33 Dose: 12.5 mg Nystatin (Nystatin Oral Susp) 5 ml PO QID [facility] Last Admin: 11/01/17 15:08 Dose: 5 ml Oxymetazoline HCl (Afrin 0.05%) 0 ml NS Q12H [facility] Last Admin: 11/01/17 12:03 Dose: 2 spr Prednisone (Prednisone Tab) 10 mg PO DAILY [facility] Promethazine HCl (Phenergan Syrup) 1 mg PO Q4H PRN PRN Reason: Cough Last Admin: 10/30/17 10:13 Dose: 1 mg Sodium Chloride ([place] Nasal [place]) 0 ml NS QID [facility] Last Admin: 11/01/17 15:06 Dose: 1 spr Spironolactone (Aldactone) 25 mg PO BID [facility] Last Admin: 11/01/17 09:32 Dose: 25 mg - Labs Labs: 11/01/17 06:00 11/01/17 06:00 PT 13.7 SECONDS (9.4-12.5) H 10/24/17 23:10 INR 1.20 (0.93-1.08) H 10/24/17 23:10 APTT 34.7 Seconds (25.1-36.5) 10/24/17 23:10 - Constitutional Appears: Well, Non-toxic, No Acute Distress - Head Exam Head Exam: ATRAUMATIC, NORMAL INSPECTION, NORMOCEPHALIC - Eye Exam Eye Exam: EOMI, Normal appearance, PERRL Pupil Exam: NORMAL ACCOMODATION - ENT Exam ENT Exam: Mucous Membranes Moist Additional comments: nasal exam no active bleeding, scabbing left side of nose. Nose healing well - Neck Exam Neck Exam: Full ROM - Respiratory Exam Respiratory Exam: NORMAL BREATHING PATTERN Assessment and Plan (1) Deviated septum Status: Acute (2) Anterior epistaxis Status: Acute (3) Frequent falls Status: Acute (4) Gait instability Status: Acute (5) Leg edema Status: Acute (6) Respiratory distress Status: Acute (7) Swelling of lower extremity Status: Acute (8) Thrombocytopenia Status: Acute (9) Dyspnea Status: Acute - Assessment and Plan (Free Text) Plan: continue conservative management with nasal sprays and humidify O2 if used
--- NOTE | 2017-11-01 18:53 | PN ---
DATE: 11/01/2017 PULMONARY PROGRESS NOTE REFERRING PHYSICIAN: Kristin Rg MD SUBJECTIVE: The patient is up in the chair. Night was unremarkable. No headache, no rhinitis, no nausea, no vomiting, no diarrhea. Still has leg swelling. OBJECTIVE: GENERAL: In no acute distress. VITAL SIGNS: Temperature 98, heart rate 63, respiratory rate is 20, blood pressure 103/55, pulse ox 97% on 2 L nasal cannula. HEENT: Moist mucous membrane. Crowded airway. NECK: Supple. No JVD. LUNGS: Fair airflow with few rhonchi. HEART: S1, S2. ABDOMEN: Soft, nontender. No organomegaly. EXTREMITIES: Does have some edema and erythema. NEUROLOGIC: Awake, alert. Follows simple command.. MEDICATIONS: Afrin p.r.n. basis, Aldactone 25 mg twice a day, bacitracin ointment 3 times a day, Benadryl 25 mg every 6 hours p.r.n., Cepacol lozenges p.r.n. basis, DuoNeb every 6 hours p.r.n., isosorbide nitrate 30 mg daily, Keflex 500 mg twice a day, Lasix 80 mg IV twice a day, metoprolol tartrate 12.5 mg daily, nasal saline 4 times a day, Pepcid 20 mg daily, Phenergan p.r.n. basis, Solu-Medrol 10 mg twice a day, Xopenex every 8 hours round the clock. LABORATORY DATA: Shows hemoglobin of 8.6, hematocrit 27.4, WBC 2.8, platelets 84. Sodium 136, potassium 4.6, chloride 94, bicarbonate 35. BUN 35, creatinine 0.8. Glucose 222. Calcium is 9.5. Microbiology: Blood cultures have been negative. IMPRESSION AND PLAN: Recurrent epistaxis, thrombocytopenia, anemia, chronic obstructive lung disease, cardiomyopathy, history of cardiac diastolic dysfunction, aortic stenosis, pulmonary hypertension, sleep apnea syndrome, cryptogenic cirrhosis, ascites, lower extremity edema, cellulitis. Pulmonary point of view, she is doing well. We will discontinue Solu-Medrol. Place her on prednisone, antibiotics, gastric prophylaxis, fall precautions, continue diuretics. Thank you, we will follow with you. Pablo Cantor MD [facility] # [id number]
[2017-11-02] MEDS: Levalbuterol 0.63 MG/3 ML Inhal Soln UD IH SCH ×3 (07:16→21:32)
--- NOTE | 2017-11-02 08:34 | PN ---
DATE: 11/01/2017 SUBJECTIVE: The patient is in bed, in no acute distress, was seen earlier this morning in room 260, bed 2. No fevers, no chills. PHYSICAL EXAMINATION: VITAL SIGNS: Temperature is 98, blood pressure is 103/50, respiratory rate of 18. HEENT: Unremarkable. NECK: Supple. LUNGS: Decreased breath sounds. HEART: Normal S1, S2. ABDOMEN: Soft, nontender. LABORATORY EXAMINATION: Reveals a white count of 3.8, hemoglobin of 8, platelets of 84. Chemistry reveals a BUN of 35, creatinine of 0.8. The urinalysis is noted. ASSESSMENT AND PLAN: This is a 77-year-old female who was seen earlier this morning in room 260, bed 2 with bilateral lower extremity cellulitis, more so on the than the left with chronic venous stasis and history of bilateral lower extremity skin infection, soft tissue infection with chronic T12 vertebra, hypertension, diabetes, coronary artery disease, chronic obstructive lung disease, day #8 of Keflex, will complete in 7 to 10 days. Case discussed with nursing staff. We will follow with you. Abram Benitez MD
[2017-11-02] MEDS: Bacitracin 500 Units/gm Oint Foilpak UD TOP SCH ×3 (09:39→17:02)
[2017-11-02] MEDS: Nystatin 100,000 Units/ml Oral Susp 5 ml UD PO SCH ×3 (09:46→17:04)
[2017-11-02] MEDS: Ammonium Lactate 12% Cream (140 g) TOP SCH ×2 (09:50→17:03)
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
[2017-11-02 12:35] VITALS: RESP 20
--- NOTE | 2017-11-02 16:59 | PN ---
DATE: 11/02/2017 LOCATION: The patient is in room 565, bed 1. REASON FOR CONSULTATION AND FOLLOWUP: Coronary artery disease; severe aortic stenosis; recurrent nosebleeds; cirrhosis of liver; edema in legs; chest pain, which resolved. SUBJECTIVE: The patient is sitting in chair comfortably without any chest pain, shortness of breath, or palpitation. PHYSICAL EXAMINATION: VITAL SIGNS: Blood pressure 110/52, respirations 20, pulse 63, temperature 97.8. HEENT: Head is normocephalic. Eyes: Pupils normal. Conjunctivae slightly pale. NECK: JVP low. Carotids equal. THORAX: AP diameter normal. LUNGS: Clear. CARDIOVASCULAR: S1, S2. Grade 3/6 ejection systolic murmur. No rub. ABDOMEN: Bowel sounds normal. EXTREMITIES: The patient has edema on the legs. She has also chronic venostasis changes. LABORATORY DATA: WBC 2.8, hemoglobin 8.6, hematocrit 27.4, and platelets 84. Prothrombin time 13.7, INR 1.2, PTT 34.7. Sodium 133, potassium 4.6, BUN 35, creatinine 0.8, random sugar 118, and calcium 9.5. DIAGNOSES: Severe aortic stenosis with pancytopenia; leukopenia; anemia; thrombocytopenia; cryptogenic cirrhosis of liver; ascites in the past; bilateral chronic leg cellulitis and venostasis; history of coronary artery disease, status post angioplasty in 2008; diabetes; hypertension; hyperlipidemia; and recurrent nosebleeds. PLAN: To continue gentle diuretics. Continue spironolactone, isosorbide nitrate, beta-kirby, and metoprolol 12.5 b.i.d. Continue treatment for chronic obstructive pulmonary disease. The patient is very fragile. The patient is not a candidate for any invasive procedure for the cardiac issues. In the past, the patient was offered TAVR many years ago, but the patient had refused, and patient and family opted for medical therapy. Anyhow, now the patient is very fragile and has multiple comorbidity problems, so not a candidate for any cardiac intervention at this point. We will continue medical therapy. Pablo Shah MD [facility] # [id number]
[2017-11-02 18:08] VITALS: TEMP 98.1
--- NOTE | 2017-11-02 18:51 | CP.PCM.PN ---
Subjective - Date & Time of Evaluation Date of Evaluation: 11/02/17 Time of Evaluation: 17:00 - Subjective Subjective: Pt seen and examined no further bleeding from nose. Using sprays and ointment. Stopped using O2 Objective - Vital Signs/Intake and Output Vital Signs (last 24 hours): Temp Pulse Resp BP Pulse Ox 98.1 F 63 20 90/52 L 98 11/02/17 14:00 11/02/17 14:00 11/02/17 14:00 11/02/17 17:03 11/02/17 14:00 Intake and Output: 11/02/17 11/02/17 06:59 18:59 Intake Total 1140 Balance 1140 - Medications Medications: Current Medications Acetaminophen (Tylenol 325mg Tab) 650 mg PO Q6H PRN PRN Reason: Pain, moderate (4-7) Last Admin: 11/02/17 16:51 Dose: 650 mg Albuterol/Ipratropium (Duoneb 3 Mg/0.5 Mg (3 Ml) Ud) 3 ml IH [id number] PRN PRN Reason: Shortness of Breath Bacitracin (Bacitracin) 1 ea TOP TID [facility] Last Admin: 11/02/17 17:02 Dose: 1 ea Benzocaine/Menthol (Cepacol Sore Throat) 1 andres MT Q2H PRN PRN Reason: Sore Throat Last Admin: 10/29/17 15:43 Dose: 1 andres Al Hydrox/Mg Hydrox/Simethicone 30 ml/Diphenhydramine HCl 75 mg/Lidocaine 30 ml 0 ml PO Q2H PRN PRN Reason: Mouth/Throat Pain Diphenhydramine HCl (Benadryl) 25 mg PO Q6 PRN PRN Reason: Itching / Pruritus Diphenhydramine HCl (Benadryl Maximum Strength 1%) 0 ea TOP Q6H PRN PRN Reason: Itching / Pruritus Emollient Ointment (Vaseline Oint) 5 gm TOP DAILY PRN PRN Reason: Dry skin Famotidine (Pepcid) 20 mg PO DAILY [facility] Last Admin: 11/02/17 09:47 Dose: 20 mg Furosemide (Lasix) 80 mg IVP BID [facility] Last Admin: 11/02/17 17:03 Dose: Not Given Isosorbide Mononitrate (Imdur Er) 30 mg PO DAILY [facility] Last Admin: 11/02/17 09:40 Dose: 30 mg Lactic Acid (Lac-Hydrin 12% Cream (140 G)) 1 ea TOP BID [facility] Last Admin: 11/02/17 17:03 Dose: 1 applic Levalbuterol HCl (Xopenex) 0.63 mg IH TIDRESP [facility] Last Admin: 11/02/17 13:35 Dose: 0.63 mg Magnesium Hydroxide (Milk Of Magnesia) 30 ml PO Q4 PRN PRN Reason: Constipation Last Admin: 10/27/17 10:19 Dose: 30 ml Metoprolol Tartrate (Lopressor) 12.5 mg PO BID [facility] Last Admin: 11/02/17 17:02 Dose: Not Given Nystatin (Nystatin Oral Susp) 5 ml PO QID [facility] Last Admin: 11/02/17 17:04 Dose: 5 ml Oxymetazoline HCl (Afrin 0.05%) 0 ml NS Q12H [facility] Last Admin: 11/01/17 12:03 Dose: 2 spr Prednisone (Prednisone Tab) 10 mg PO DAILY [facility] Last Admin: 11/02/17 09:47 Dose: 10 mg Promethazine HCl (Phenergan Syrup) 1 mg PO Q4H PRN PRN Reason: Cough Last Admin: 10/30/17 10:13 Dose: 1 mg Sodium Chloride ([place] Nasal [place]) 0 ml NS QID [facility] Last Admin: 11/02/17 17:04 Dose: 1 spr Spironolactone (Aldactone) 25 mg PO BID [facility] Last Admin: 11/02/17 17:02 Dose: Not Given - Labs Labs: 11/01/17 06:00 11/01/17 06:00 PT 13.7 SECONDS (9.4-12.5) H 10/24/17 23:10 INR 1.20 (0.93-1.08) H 10/24/17 23:10 APTT 34.7 Seconds (25.1-36.5) 10/24/17 23:10 - Head Exam Head Exam: ATRAUMATIC, NORMAL INSPECTION, NORMOCEPHALIC - Eye Exam Eye Exam: EOMI, Normal appearance - ENT Exam ENT Exam: Mucous Membranes Moist Additional comments: septum deviation no active bleeding seen - Neck Exam Neck Exam: Full ROM, Normal Inspection - Respiratory Exam Respiratory Exam: NORMAL BREATHING PATTERN - Extremities Exam Extremities Exam: Normal Inspection - Neurological Exam Neurological Exam: Alert, Awake - Psychiatric Exam Psychiatric exam: Normal Affect, Normal Mood - Skin Skin Exam: Normal Color Assessment and Plan (1) Deviated septum Status: Acute (2) Anterior epistaxis Status: Acute (3) Frequent falls Status: Acute (4) Gait instability Status: Acute (5) Leg edema Status: Acute (6) Respiratory distress Status: Acute (7) Swelling of lower extremity Status: Acute (8) Thrombocytopenia Status: Acute (9) Dyspnea Status: Acute - Assessment and Plan (Free Text) Assessment: continue conservative management, continue sprays and ointment
--- NOTE | 2017-11-03 00:39 | PN ---
DATE: 11/02/2017 SUBJECTIVE: The patient seen in bed in no acute distress, nontoxic. PHYSICAL EXAMINATION: VITAL SIGNS: On exam, temperature is 98, blood pressure is 110/50, respiratory rate of 20, heart rate of 63. HEENT: Examination of HEENT is unremarkable. NECK: Supple. LUNGS: Have decreased breath sounds. HEART: Exam is normal S1, S2. ABDOMEN: Soft, nontender. LABORATORY DATA: Examination reveals a white count of 2.8, hemoglobin of 8.6, platelets of 84. Chemistries are noted. BUN of 35, creatinine of 0.8. Urinalysis is noted. Microbiology reveals the cultures are negative. ASSESSMENT AND PLAN: This is a 77-year-old female who was seen earlier this morning with bilateral lower extremity cellulitis, chronic venous stasis, history of bilateral lower extremity infection and skin and soft tissue infection of chronic T12 vertebra, hypertension, diabetes, coronary artery disease, chronic obstructive lung disease, day #9 of Keflex, will complete 7 to 10 days of antibiotics. The patient is also on prednisone. The patient is now off of antibiotics. Abram Benitez MD
--- NOTE | 2017-11-03 02:09 | PN ---
DATE: SUBJECTIVE: The patient is a 77-year-old female. The patient is seen and examined at the bedside, sitting on the chair, feeling comfortable. Cough is better. No nausea, vomiting, or diarrhea. No hematuria or hematochezia. Swelling of the legs is better. No chest pain. No headache. No dizziness. No dyspnea. No dysuria. PHYSICAL EXAMINATION: VITAL SIGNS: Temperature 98, heart rate 53, respiratory rate 20, blood pressure 110/55, pulse oximetry 97% on 2 liter nasal cannula. HEENT: Head: Normocephalic and atraumatic. Eyes: PERRLA. Extraocular muscles intact. Conjunctivae clear. Nose: Patent. Mucous membrane moist. NECK: Supple. No carotid bruit, JVD, or thyromegaly. LUNGS: Fair airflow with a few rhonchi. HEART: S1 and S2 positive. ABDOMEN: Soft, nontender. No organomegaly. EXTREMITIES: Does have some edema and erythema, but getting better. NEUROLOGIC: Awake, alert. Follows simple command. MEDICATIONS: Aspirin, Aldactone, bacitracin, Benadryl, Cepacol lozenges, DuoNeb, isosorbide, Keflex, Lasix, metoprolol, Pepcid, Phenergan, Solu-Medrol, and Xopenex. LABORATORY DATA: Hemoglobin 8.9, hematocrit 27.4, white blood cells 2.8, platelets 84. Sodium noted , potassium 4.6, BUN 35, creatinine 0.8, glucose 222. ASSESSMENT AND PLAN: Ms. Maria D Sullivan is a 77-year-old lady with a history of thrombocytopenia, anemia, leukopenia, practically pancytopenia, [id number] diabetes mellitus type 2, recurrent epistaxis, need multiple times cauterization, chronic obstructive lung disease, cardiomyopathy, history of coronary artery disease and cardiac stenting, severe aortic stenosis, pulmonary hypertension, sleep apnea syndrome, cryptogenic cirrhosis, ascites, lower extremity edema, and cellulitis. Dr. Cantor tapered off the Solu-Medrol, placed on prednisone, antibiotics, gastric prophylaxis, fall precautions, physical therapy, gastrointestinal and deep venous thrombosis prophylaxes. We will follow up. Kristin Rg MD [id number]
--- NOTE | 2017-11-03 02:13 | PN ---
DATE: 11/02/2017 PULMONARY PROGRESS NOTE REFERRING PHYSICIAN: Kristin Rg MD. SUBJECTIVE: She is out of bed to chair. Night was unremarkable. Feels a little better. No headache, no rhinitis. No nausea, no vomiting, no diarrhea. Still has leg swelling and erythema. OBJECTIVE: GENERAL: In no acute distress. VITAL SIGNS: Temperature is 98, heart rate 63, respiratory rate is 18, blood pressure 90/52, pulse ox 98% on 2 liters nasal cannula. HEENT: Moist mucous membrane. Crowded airway. Mallampati score is 4. NECK: Supple. No JVD. LUNGS: Have a fair airflow with a few rhonchi. HEART: S1 and S2 with aortic valve murmur. ABDOMEN: Soft, nontender. No organomegaly. EXTREMITIES: Does have edema and erythema of the lower extremity. NEUROLOGIC: Awake, alert, and follows simple command. MEDICATIONS: She is on Afrin spray in each nostril every 12 hours, Aldactone 25 mg twice a day, bacitracin ointment to affected area three times a day, Benadryl 25 mg every 6 hours p.r.n., Cepacol lozenges every 2 hours p.r.n., DuoNeb every 6 hours p.r.n., Imdur 30 mg daily, Lasix 80 mg IV twice a day, metoprolol tartrate 12.5 mg twice a day, Magic mouthwash every 2 hours p.r.n., milk of magnesia p.r.n. basis, nystatin oral four times a day, nasal saline two sprays each nostril four times a day, Pepcid 20 mg daily, promethazine 1 mg every 4 hours p.r.n., prednisone 10 mg daily, Tylenol p.r.n., Vaseline ointment to affected area, Xopenex inhale every 8 hours. LABORATORY DATA: Reviewed. Blood sugar this morning was 202. Microbiology: Blood culture has been negative. IMPRESSION AND PLAN: Recurrent epistaxis, thrombocytopenia, anemia, chronic obstructive lung disease, cardiomyopathy, history of cardiac diastolic dysfunction, aortic stenosis, pulmonary hypertension, sleep apnea syndrome, cryptogenic cirrhosis, ascites, lower extremity edema, cellulitis, activities of daily living dysfunction. Pulmonary point of view, doing okay. Continue p.o. and inhaled bronchodilator, sleep apnea precaution, avoid sedation. 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 Thank you and we will follow with you. Pablo Cantor MD
[2017-11-03] MEDS: Levalbuterol 0.63 MG/3 ML Inhal Soln UD IH SCH ×2 (07:53→12:28)
[2017-11-03 08:24] VITALS: PULSE 69; O2SAT 95
[2017-11-03] MEDS: Nystatin 100,000 Units/ml Oral Susp 5 ml UD PO SCH (09:27)
[2017-11-03] MEDS: Ammonium Lactate 12% Cream (140 g) TOP SCH (09:29)
[2017-11-03] MEDS: Bacitracin 500 Units/gm Oint Foilpak UD TOP SCH (09:29)
[2017-11-03 09:38] VITALS: BP 123/51
--- NOTE | 2017-11-03 12:55 | CP.PCM.PN ---
<Nasreen Maradiaga - Last Filed: 11/03/17 12:59> Subjective - Date & Time of Evaluation Date of Evaluation: 11/01/17 Time of Evaluation: 11:30 - Subjective Subjective: Chief Complaint: Weakness, leg edema 77yr female w/ history of CHF, HTN, cirrhosis of liver, COPD, lower extremmity edema, DM II (non-insulin dependent), gastric hernia, hiatial hernia , and recurrent epistaxis. Pt [place] [facility] [place] intermittent L sided epixstais , CHF, & bilateral lower extremity edema w. possible cellulitis. Blood cultures done were NEGATIVE. Pt is s/p vancomycin and rocephin. Pt is on a course of PO keflex. Pt is treated with IV lasix, IV solumedryl, & Continuous nasal cannula O2 in place for her cardiopulmonary issues. Today, pt seen at bedsides with complaints of leg edema. Denies headache, fever, chills, shortness of breath, constipation, diarrhea, or urinary issues. Objective - Vital Signs/Intake and Output Vital Signs (last 24 hours): Temp Pulse Resp BP Pulse Ox 98.1 F 69 20 123/51 L 95 11/03/17 08:23 11/03/17 08:23 11/03/17 08:23 11/03/17 09:30 11/03/17 08:23 Intake and Output: 11/03/17 11/03/17 06:59 18:59 Intake Total 660 Output Total 350 Balance 310 - Medications Medications: Current Medications Acetaminophen (Tylenol 325mg Tab) 650 mg PO Q6H PRN PRN Reason: Pain, moderate (4-7) Last Admin: 11/02/17 16:51 Dose: 650 mg Albuterol/Ipratropium (Duoneb 3 Mg/0.5 Mg (3 Ml) Ud) 3 ml IH [id number] PRN PRN Reason: Shortness of Breath Bacitracin (Bacitracin) 1 ea TOP TID ALEXANDRA Last Admin: 11/03/17 09:29 Dose: 1 ea Benzocaine/Menthol (Cepacol Sore Throat) 1 andres MT Q2H PRN PRN Reason: Sore Throat Last Admin: 10/29/17 15:43 Dose: 1 andres Al Hydrox/Mg Hydrox/Simethicone 30 ml/Diphenhydramine HCl 75 mg/Lidocaine 30 ml 0 ml PO Q2H PRN PRN Reason: Mouth/Throat Pain Diphenhydramine HCl (Benadryl) 25 mg PO Q6 PRN PRN Reason: Itching / Pruritus Diphenhydramine HCl (Benadryl Maximum Strength 1%) 0 ea TOP Q6H PRN PRN Reason: Itching / Pruritus Emollient Ointment (Vaseline Oint) 5 gm TOP DAILY PRN PRN Reason: Dry skin Famotidine (Pepcid) 20 mg PO DAILY [facility] Last Admin: 11/03/17 09:28 Dose: 20 mg Furosemide (Lasix) 80 mg IVP BID [facility] Last Admin: 11/03/17 09:30 Dose: 80 mg Isosorbide Mononitrate (Imdur Er) 30 mg PO DAILY [facility] Last Admin: 11/03/17 09:29 Dose: 30 mg Lactic Acid (Lac-Hydrin 12% Cream (140 G)) 1 ea TOP BID [facility] Last Admin: 11/03/17 09:29 Dose: 1 applic Levalbuterol HCl (Xopenex) 0.63 mg IH TIDRESP [facility] Last Admin: 11/03/17 12:28 Dose: 0.63 mg Magnesium Hydroxide (Milk Of Magnesia) 30 ml PO Q4 PRN PRN Reason: Constipation Last Admin: 10/27/17 10:19 Dose: 30 ml Metoprolol Tartrate (Lopressor) 12.5 mg PO BID [facility] Last Admin: 11/03/17 09:30 Dose: 12.5 mg Nystatin (Nystatin Oral Susp) 5 ml PO QID [facility] Last Admin: 11/03/17 09:27 Dose: 5 ml Oxymetazoline HCl (Afrin 0.05%) 0 ml NS Q12H [facility] Last Admin: 11/01/17 12:03 Dose: 2 spr Prednisone (Prednisone Tab) 10 mg PO DAILY [facility] Last Admin: 11/03/17 09:28 Dose: 10 mg Promethazine HCl (Phenergan Syrup) 1 mg PO Q4H PRN PRN Reason: Cough Last Admin: 10/30/17 10:13 Dose: 1 mg Sodium Chloride ([place] Nasal [place]) 0 ml NS QID [facility] Last Admin: 11/03/17 09:29 Dose: 1 spr Spironolactone (Aldactone) 25 mg PO BID [facility] Last Admin: 11/03/17 09:28 Dose: 25 mg - Labs Labs: 11/01/17 06:00 11/01/17 06:00 PT 13.7 SECONDS (9.4-12.5) H 10/24/17 23:10 INR 1.20 (0.93-1.08) H 10/24/17 23:10 APTT 34.7 Seconds (25.1-36.5) 10/24/17 23:10 - Constitutional Appears: Chronically Ill - Head Exam Head Exam: ATRAUMATIC, NORMAL INSPECTION, NORMOCEPHALIC - Eye Exam Eye Exam: Normal appearance - ENT Exam ENT Exam: Mucous Membranes Moist, Normal Exam - Neck Exam Neck Exam: Full ROM, Normal Inspection. absent: Lymphadenopathy - Respiratory Exam Respiratory Exam: Clear to Ausculation Bilateral, NORMAL BREATHING PATTERN - Cardiovascular Exam Cardiovascular Exam: REGULAR RHYTHM, +S1, +S2. absent: Murmur - GI/Abdominal Exam GI & Abdominal Exam: Soft, Hernia, Normal Bowel Sounds. absent: Tenderness - Extremities Exam Extremities Exam: Normal Capillary Refill, Tenderness Additional comments: Bilateral lower extremity +2 edema - Back Exam Back Exam: NORMAL INSPECTION - Neurological Exam Neurological Exam: Alert, Awake, Normal Gait, Oriented x3 - Psychiatric Exam Psychiatric exam: Normal Affect, Normal Mood - Skin Skin Exam: Dry, Intact, Normal Color, Warm Additional comments: Bilateral lower extremities erythema. Assessment and Plan (1) Proteinuria Status: Acute (2) Hematuria Status: Acute (3) Anterior epistaxis Status: Acute (4) Bilateral cellulitis of lower leg Status: Acute (5) Deviated septum Status: Acute (6) Elevated troponin Status: Acute (7) Acute CHF Status: Acute (8) Anemia Status: Acute (9) Gait instability Status: Acute (10) Thrombocytopenia Status: Acute <Kristin Rg - Last Filed: 11/03/17 21:06> Objective - Vital Signs/Intake and Output Vital Signs (last 24 hours): Temp Pulse Resp BP Pulse Ox 98.1 F 69 20 123/51 L 95 11/03/17 08:23 11/03/17 08:23 11/03/17 08:23 11/03/17 09:30 11/03/17 08:23 - Labs Labs: 11/01/17 06:00 03/28/18 06:00 PT 13.7 SECONDS (9.4-12.5) H 10/24/17 23:10 INR 1.20 (0.93-1.08) H 10/24/17 23:10 APTT 34.7 Seconds (25.1-36.5) 10/24/17 23:10 Assessment and Plan - Assessment and Plan (Free Text) Assessment: 77yr female w/ history of CHF, HTN, cirrhosis of liver, COPD, lower extremmity edema, DM II (non-insulin dependent), gastric hernia, hiatial hernia , and recurrent epistaxis. Pt admitted [place] [facility] [place] intermittent L sided epixstais , CHF, & bilateral lower extremity edema w. possible cellulitis. Blood cultures done were NEGATIVE. Pt is s/p vancomycin and rocephin. Pt is on a course of PO keflex. Pt is treated with IV lasix, IV solumedryl, & Continuous nasal cannula O2 in place for her cardiopulmonary issues. Today, pt seen at bedsides with complaints of leg edema. Denies headache, fever, chills, shortness of breath, constipation, diarrhea, or urinary issues.pt is seen and examined at bed side , agreed all above , meds , chart and labs noted , d/d with [employer] . will f/u dc home . i have d/d with [facility] insurence director , they refused rehab . so we dc pt home . f/u as out pt
--- NOTE | 2017-11-03 16:30 | PN ---
DATE: 11/03/2017 LOCATION: Room 565, bed 1. REASON FOR CONSULTATION AND FOLLOWUP: Coronary artery disease, severe aortic stenosis, recurrent nosebleeds, cirrhosis of the liver, edema in legs, and chest pain, which is resolved. SUBJECTIVE: The patient is sitting in chair comfortably without chest pain, shortness of breath, or palpitation. PHYSICAL EXAMINATION: VITAL SIGNS: Blood pressure is 123/51, respirations 20, pulse 69, and temperature 98.1. HEENT: Head is normocephalic. Eyes: Pupils normal. Conjunctivae pale. NECK: JVP low. Carotids equal. THORAX: AP diameter normal. LUNGS: Clear. CARDIOVASCULAR: S1, S2. Grade 3/6 ejection systolic murmur. No rub. ABDOMEN: Protuberant. EXTREMITIES: No clubbing. No cyanosis. The patient has some edema on the legs. LABORATORY DATA: WBC 2.8, hemoglobin 8.6, hematocrit 27.4, platelets 84. Random sugar 148. Sodium 133, potassium 4.6, BUN 35, creatinine 0.8, calcium 9.5. DIAGNOSES: Severe aortic stenosis with pancytopenia, leukopenia, anemia, thrombocytopenia, cryptogenic cirrhosis of liver, ascites in the past, bilateral chronic leg cellulitis and venostasis, history of coronary artery disease status post angioplasty in 2008, diabetes, hypertension, hyperlipidemia, and recurrent nosebleeds. PLAN: We will continue spironolactone, isosorbide nitrate, and beta-kirby, which is metoprolol 12.5 b.i.d. Continue treatment for COPD. The patient is not a candidate for any invasive intervention from aortic stenosis. Many years ago, patient was offered TAVR, she refused and family also refused at that time, opted for medical therapy. Now, the patient has lot of comorbidities, so we will continue to treat her medically. Pablo Shah MD
--- NOTE | 2017-11-03 23:38 | PN ---
DATE: 11/03/2017 PULMONARY PROGRESS NOTE REFERRING PHYSICIAN: Kristin Rg MD. SUBJECTIVE: She is out of bed to a wheelchair bound, being discharged home. Feels okay. No headache, no rhinitis. No nausea, no vomiting, no diarrhea. Decreased leg swelling. OBJECTIVE: GENERAL: In no acute distress. VITAL SIGNS: Temperature is 98, heart rate 69, respiratory rate is 20, blood pressure 123/51, pulse ox 95% on room air. HEENT: Moist mucous membrane. No ulcer or thrush noted. NECK: Supple. No JVD. LUNGS: Have a fair airflow with rhonchi. HEART: S1 and S2 with murmur. ABDOMEN: Soft, nontender. No organomegaly. EXTREMITIES: There is edema decreased. NEUROLOGIC: Awake, alert, and follows simple command. MEDICATIONS: Reviewed. No new changes in medications reported since yesterday. LABORATORY DATA: Reviewed. Noted blood sugar this morning 148. Microbiology: Blood culture has been negative. IMPRESSION AND PLAN: History of recurrent epistaxis, thrombocytopenia, chronic obstructive lung disease, cardiomyopathy with severe aortic stenosis, pulmonary hypertension, sleep apnea syndrome, cryptogenic cirrhosis, ascites, lower extremity edema. Pulmonary point of view, doing well. May continue p.r.n. inhalers. Continue Seratex, fluid restriction and fall precaution. Outpatient pulmonary function test, will follow with Dr. Rg next week. Pablo Cantor MD
== END 2017-11-03 14:31 | disposition home health service (06) | DRG 981 ==
LOC: ED 22:13 → ERH 10-25 01:09 → 5RSO 10-25 02:21 → 2RNO 10-25 10:01 → OBSVTOIN 10-25 13:02 → 2RNO 10-26 23:34 → 5RNO 11-01 13:42
PROVIDERS: ADMIT Internal Medicine; ATTEND Internal Medicine
PROC: 0W3Q7ZZ Control Bleeding in Respiratory Tract, Via Natural or Artificial Opening (ICD-10-PCS; principal; 2017-10-24)
PROC: 0HBRXZZ Excision of Toe Nail, External Approach (ICD-10-PCS; 2017-11-02)
PROC: 0HBRXZZ Excision of Toe Nail, External Approach (ICD-10-PCS; 2017-11-02)
PROC: 0HBRXZZ Excision of Toe Nail, External Approach (ICD-10-PCS; 2017-11-02)
PROC: 0HBRXZZ Excision of Toe Nail, External Approach (ICD-10-PCS; 2017-11-02)
PROC: 0HBRXZZ Excision of Toe Nail, External Approach (ICD-10-PCS; 2017-11-02)
PROC: 0HBRXZZ Excision of Toe Nail, External Approach (ICD-10-PCS; 2017-11-02)
PROC: 0HBRXZZ Excision of Toe Nail, External Approach (ICD-10-PCS; 2017-11-02)
PROC: 0HBRXZZ Excision of Toe Nail, External Approach (ICD-10-PCS; 2017-11-02)
PROC: 0HBRXZZ Excision of Toe Nail, External Approach (ICD-10-PCS; 2017-11-02)
PROC: 0HBRXZZ Excision of Toe Nail, External Approach (ICD-10-PCS; 2017-11-02)
DX: L03.115 Cellulitis of right lower limb (principal); E43 Unspecified severe protein-calorie malnutrition; I13.0 Hypertensive heart and chronic kidney disease with heart failure and stage 1 through stage 4 chronic kidney disease, or unspecified chronic kidney disease; I50.30 Unspecified diastolic (congestive) heart failure; D61.818 Other pancytopenia; I42.9 Cardiomyopathy, unspecified; I45.2 Bifascicular block; R18.8 Other ascites; L03.116 Cellulitis of left lower limb; R04.0 Epistaxis; K74.69 Other cirrhosis of liver; J44.9 Chronic obstructive pulmonary disease, unspecified; N18.9 Chronic kidney disease, unspecified; E11.22 Type 2 diabetes mellitus with diabetic chronic kidney disease; I25.118 Atherosclerotic heart disease of native coronary artery with other forms of angina pectoris; M48.56XD Collapsed vertebra, not elsewhere classified, lumbar region, subsequent encounter for fracture with routine healing; F32.9 Major depressive disorder, single episode, unspecified; I87.8 Other specified disorders of veins; I35.0 Nonrheumatic aortic (valve) stenosis; I27.20 Pulmonary hypertension, unspecified; G47.30 Sleep apnea, unspecified; R26.9 Unspecified abnormalities of gait and mobility; B35.1 Tinea unguium; K46.9 Unspecified abdominal hernia without obstruction or gangrene; I49.1 Atrial premature depolarization; E78.00 Pure hypercholesterolemia, unspecified; D69.59 Other secondary thrombocytopenia; J34.2 Deviated nasal septum; R29.6 Repeated falls; Z87.891 Personal history of nicotine dependence; Z95.5 Presence of coronary angioplasty implant and graft

== ENCOUNTER 2017-11-16 08:26 | Inpatient (IN) | payer MEDICARE, OTHER ==
[2017-11-16 08:26] VITALS: PULSE 103
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
[2017-11-16 09:33] LABS: VENOUS BLOOD GAS PO2 39 mm/Hg (30-55); VENOUS BLOOD PH 7.46 (7.32-7.43)
[2017-11-16 09:37] LABS: BASO # 0.02 K/mm3 (0.0-2.0); BASO % 0.6 % (0.0-3.0); EOS # 0.4 (0.0-0.7); EOS % 13.7 % (1.5-5.0); GRAN # 1.68 (1.4-6.5); GRAN % 53.7 % (50.0-68.0); HEMOGLOBIN 9.1 g/dL (12.0-16.0); LYMPH # 0.7 (1.2-3.4); LYMPH % 21.1 % (22.0-35.0); MEAN CELL VOLUME 85.9 fl (80.0-105.0); MEAN CORPUSCULAR HEMOGLOBIN 27.9 pg (25.0-35.0); MEAN CORPUSCULAR HGB CONC 32.5 g/dl (31.0-37.0); MEAN PLATELET VOLUME 8.7 fl (7.0-11.0); MONO # 0.3 (0.1-0.6); MONO % 10.9 % (1.0-6.0); RBC 3.26 10^6/uL (3.5-6.1); RED CELL DISTRIBUTION WIDTH 20.8 % (11.5-14.5); WHITE BLOOD COUNT 3.1 10^3/ul (4.5-11.0)
[2017-11-16 09:40] LABS: INR 1.14 (0.93-1.08)
[2017-11-16 09:43] LABS: PROTHROMBIN TIME 13.2 SECONDS (9.4-12.5)
[2017-11-16 09:53] LABS: ALBUMIN 2.8 g/dL (3.0-4.8); ALT/SGPT 41 U/L (7-56); AST/SGOT 32 U/L (14-36); BLOOD UREA NITROGEN 18 mg/dL (7-21); CALCIUM 9.1 mg/dL (8.4-10.5); GFR AFRICAN-AMERICAN > 60; GFR NON-AFRICAN AMERICAN > 60
[2017-11-16 09:54] LABS: B-TYPE NATRIURETIC PEPTIDE 852 pg/mL (0-450); TROPONIN I 0.06 ng/mL
--- NOTE | 2017-11-16 10:23 | CT ---
PROCEDURE: CT HEAD WITHOUT CONTRAST. HISTORY: Fall/ Generalized Weakness COMPARISON: None available. TECHNIQUE: Axial computed tomography images were obtained through the head/brain without intravenous contrast. Radiation dose: Total exam DLP = 848.97 mGy-cm. This CT exam was performed using one or more of the following dose reduction techniques: Automated exposure control, adjustment of the mA and/or kV according to patient size, and/or use of iterative reconstruction technique. FINDINGS: HEMORRHAGE: No intracranial hemorrhage. BRAIN: Lea-white matter differentiation is preserved. There is no mass, mass effect or abnormal extra-axial fluid collection. There is no territorial infarction.There are coarse atherosclerotic calcifications in the cavernous carotid arteries. VENTRICLES: There is mild age-related global parenchymal volume loss and proportionate enlargement of the ventricles and cortical sulci. CALVARIUM: There is no calvarial fracture or extracranial soft tissue swelling. PARANASAL SINUSES: Predominantly clear. MASTOID AIR CELLS: Predominantly clear. OTHER FINDINGS: None. IMPRESSION: No acute intracranial abnormality.
--- NOTE | 2017-11-16 10:26 | CT ---
PROCEDURE: CT Cervical Spine without contrast HISTORY: Trauma COMPARISON: None available. TECHNIQUE: Axial computed tomography images were obtained of the cervical spine without the use of intravenous contrast. Coronal and sagittal reformatted images were created and reviewed. Radiation dose: Total exam DLP = mGy-cm. This CT exam was performed using one or more of the following dose reduction techniques: Automated exposure control, adjustment of the mA and/or kV according to patient size, and/or use of iterative reconstruction technique. FINDINGS: VERTEBRAE: Place there is 3 mm degenerative retrolisthesis of C4 on C5. There is straightening of the cervical spine with loss of normal cervical lordosis. There is diffuse bone demineralization. There is no acute fracture or traumatic anterior listhesis. The craniocervical junction is normal. The atlantoaxial joint is normal. DISCS/SPINAL CANAL/NEURAL FORAMINA: There is advanced multilevel degenerative disc disease due to combination of disc osteophyte complexes, uncovertebral joint hypertrophy and multilevel facet arthropathy, worse at C4-5 without spinal canal stenosis. Broad-based at the PARASPINAL SOFT TISSUES: Unremarkable. OTHER FINDINGS: None. IMPRESSION: No acute fracture or traumatic anterior listhesis. Multilevel degenerative disc disease, worse at C4-5 without spinal canal stenosis.
--- NOTE | 2017-11-16 10:58 | RAD ---
HISTORY: Fall/Generalized Weakness COMPARISON: No prior. FINDINGS: LUNGS: No active pulmonary disease. PLEURA: No significant pleural effusion identified, no pneumothorax apparent. CARDIOVASCULAR: Normal. OSSEOUS STRUCTURES: No significant abnormalities. VISUALIZED UPPER ABDOMEN: Normal. OTHER FINDINGS: None. IMPRESSION: No active disease.
--- NOTE | 2017-11-16 11:40 | CT ---
PROCEDURE: CT Lumbar Spine without contrast HISTORY: Fall, Generalized Weakness COMPARISON: MRI lumbar spine from 03/22/2017 TECHNIQUE: Axial computed tomography images were obtained of the lumbar spine without the use of intravenous contrast. Coronal and sagittal reformatted images were created and reviewed. Radiation dose: Total exam DLP = 1353.42 mGy-cm. This CT exam was performed using one or more of the following dose reduction techniques: Automated exposure control, adjustment of the mA and/or kV according to patient size, and/or use of iterative reconstruction technique. FINDINGS: VERTEBRAE: There is severe diffuse bone demineralization. There is normal alignment of the lumbar vertebral bodies. There is normal lumbar lordosis. There are age indeterminate osteoporotic compression fracture deformities in the L1, L2 and L4 vertebral bodies, new since the prior examination. No retropulsion. There is an old compression wedging in the T12 vertebral body. DISCS/SPINAL CANAL/NEURAL FORAMINA: There is advanced multilevel degenerative disc disease, worse at L4-5 with severe bilateral neural foraminal narrowing and mild spinal canal stenosis. PARASPINAL SOFT TISSUES: The paraspinous soft tissues are normal. Imaged portion of the retroperitoneum is within normal limits. OTHER FINDINGS: There is small right and trace left pleural effusion. IMPRESSION: 1. Severe bone demineralization. Age indeterminate osteoporotic compression fracture deformities in the L1, L2 and L4 vertebral bodies, new since the prior examination. No retropulsion. 2. Advanced multilevel degenerative disc disease, worse at L4-5 with severe bilateral neural foraminal narrowing and mild spinal canal stenosis. 3. Old osteoporotic compression deformity in the T12 vertebral body. 4. Small right and trace left pleural effusions.
[2017-11-16 12:21] LABS: URINE BILIRUBIN NEGATIVE (NEGATIVE); URINE BLOOD NEGATIVE (NEGATIVE); URINE GLUCOSE (UA) NEGATIVE (NEGATIVE); URINE LEUKOCYTE ESTERASE NEGATIVE Leu/uL (NEGATIVE); URINE PROTEIN NEGATIVE mg/dL (<30 mg/dL)
[2017-11-16 12:24] LABS: URINE APPEARANCE CLEAR (CLEAR); URINE COLOR YELLOW (YELLOW)
[2017-11-16] MEDS ORDERED: Potassium Chloride 20 mEq ER Tab PO STA ×2 (14:37→18:26)
[2017-11-16] MEDS ORDERED: Gadodiamide 287 MG/ML VIAL (15ML) IV ONE (15:53)
--- NOTE | 2017-11-16 16:24 | MRI ---
PROCEDURE: MR THORACIC SPINE WITH AND WITHOUT CONTRAST HISTORY: Include T12, New Compression Fractures COMPARISON: None available. TECHNIQUE: Multiecho multiplanar sequences were performed through the thoracic spine with and without the use of intravenous contrast. 15 cc of Omniscan FINDINGS: ALIGNMENT: Normal thoracic spinal alignment. Normal thoracic kyphosis. VERTEBRA: There is a chronic appearing T12 compression fracture. There is marrow edema and enhancement in the superior portion of the L1 vertebral body consistent with an acute compression fracture. There is also minimal enhancement and edema along the vertebral endplates of L2 also consistent with an acute or subacute compression fracture MARROW: As above PARASPINAL SOFT TISSUES: Unremarkable. CORD: Unremarkable thoracic cord. No volume loss, signal abnormality or syrinx. DISCS: No disc herniation, spinal canal stenosis, or neuroforaminal narrowing. ENHANCEMENT: There is enhancement in the L1 vertebral body OTHER FINDINGS: None. IMPRESSION: There is a chronic appearing T12 compression fracture. There is marrow edema and enhancement in the superior portion of the L1 vertebral body consistent with an acute compression fracture. There is also minimal enhancement and edema along the vertebral endplates of L2 also consistent with an acute or subacute compression fracture
--- NOTE | 2017-11-16 16:38 | CARD ---
APPROVED REPORT EKG Measurement Heart [id number] <Conclusion> Sinus tachycardia RBBB LAD NSSTW changes
[2017-11-16 18:21] VITALS: BMI 27.3
[2017-11-16] MEDS ORDERED: Pneumococcal 23-Valent Vaccine IM ONE (18:22)
--- NOTE | 2017-11-16 21:22 | CON ---
DATE: 11/16/2017 SERVICE: Cardiology. REASON FOR CONSULTATION AND FOLLOWUP: Cardiac evaluation for code STEMI. BRIEF CLINICAL HISTORY: This is a 77-year-old female with multiple admissions, well known from previous admission and history of angioplasty in the past, who fell down at home and remained on the floor for 6 hours, brought here. ER physician thought this is the code STEMI because , so cardiology consult stat was called for evaluation of code STEMI. The patient denies any chest pain, shortness of breath, or any palpitation. EKG did not show any ST elevation, shows right bundle-branch block. PAST HISTORY: Significant for COPD, thrombocytopenia, cryptogenic cirrhosis, severe aortic stenosis in the past, refused steroids. History of coronary artery disease, history of stent in RCA in 04/2009, history of cirrhosis, history of thrombocytopenia, history of multiple nosebleed, off aspirin and Plavix, low platelet count, multiple episodes of bilateral lower extremity cellulitis, history of CHF, history of hypertension, diabetes, history of chronic venous stasis ulcer, severe aortic stenosis. SOCIAL HISTORY: Denies any history of alcohol abuse. ALLERGIES: NO KNOWN DRUG ALLERGY. CURRENT MEDICATIONS: The patient at home was taking calcium 500, spironolactone, metoprolol, Lasix 80 mg daily. Previous EKG shows sinus tachycardia, left axis deviation, right bundle-branch block. Today's EKG showed normal sinus, right bundle branch block, no acute ST-T changes noted. Echo dated 10/12/2015, showed ejection fraction 65% to 70%, aortic valve moderately calcified, [id number] aortic regurgitation, [id number] supravalvular aortic stenosis, mild mitral regurgitation, moderate tricuspid regurgitation, RV systolic pressure 50, dated 10/12/2015. REVIEW OF SYSTEMS: As per HPI. PHYSICAL EXAMINATION: VITAL SIGNS: Temperature afebrile, heart rate 107, blood pressure 120/69. HEENT: PERRLA. Extraocular muscles intact. NECK: Supple. No carotid bruit or thyromegaly. CHEST: Clear to auscultation. HEART: S1 and S2, regular. ABDOMEN: Soft. EXTREMITIES: Clubbing and cyanosis negative. LABORATORY DATA: Blood workup as follows: WBC 3.1, hemoglobin 9.2, hematocrit 28, platelet count 63. Chemistry shows sodium 138, potassium 3.5, chloride 102, carbon dioxide 28, anion gap of 11. BUN 18, creatinine 0.9. IMPRESSION: Bilateral lower extremity cellulitis, status post fall, no evidence of acute myocardial infarction. We will cancel code ST-elevation myocardial infarction and resume medications. The patient just came in. No blood work up available at this time. We will follow closely. We will resume Lasix, low dose of beta-kirby as blood pressure is tolerated. History of chronic venous stasis, bilateral lower extremity edema, coronary artery disease, status post stent in 04/2009, [id number] aortic stenosis, cryptogenic cirrhosis, nosebleed, thrombocytopenia. We will get echo. Further recommendation depend upon hospital course. We will follow with you. Thank you, Dr. Rg, for providing us the opportunity in taking care of the patient, Maria D Sullivan. Pablo Guillermo MD
--- NOTE | 2017-11-17 01:06 | CP.PCM.PN ---
Subjective - Date & Time of Evaluation Date of Evaluation: 11/17/17 Time of Evaluation: 01:05 - Subjective Subjective: Patient requested pain medication. Seen at bedside. She is on commode now. States that she fell 7 days ago, has aches all over body. Has no other complaints. 96/60,87,98*F 95% on RA. Medical record was reviewed. This 77 year old white woman was admitted Has PMH of COPD,cryptogenic cirrhosis, thrombocytopenia, CAD, stent in RCA, aortic stenosis, CHF,HTN,DM. f Objective - Vital Signs/Intake and Output Vital Signs (last 24 hours): Temp Pulse Resp BP Pulse Ox 98 F 87 20 96/50 L 95 11/17/17 01:04 11/17/17 01:04 11/17/17 01:04 11/17/17 01:04 11/17/17 01:04 Intake and Output: 11/16/17 11/17/17 18:59 06:59 Intake Total 100 540 Balance 100 540 - Medications Medications: Current Medications Albuterol/Ipratropium (Duoneb 3 Mg/0.5 Mg (3 Ml) Ud) 3 ml IH [id number] [facility] Calcium Carbonate (Oscal) 500 mg PO DAILY [facility] Famotidine (Pepcid) 40 mg PO HS [facility] Furosemide (Lasix) 40 mg IV DAILY [facility] Insulin Human Regular (Humulin R Low) 0 units SC ACHS [facility] PRN Reason: Protocol Metoprolol Tartrate (Lopressor) 12.5 mg PO BID [facility] Last Admin: 11/16/17 18:33 Dose: 12.5 mg Spironolactone (Aldactone) 25 mg PO DIN [facility] Last Admin: 11/16/17 18:32 Dose: 25 mg - Labs Labs: PT 13.2 SECONDS (9.4-12.5) H 11/16/17 09:19 INR 1.14 (0.93-1.08) H 11/16/17 09:19 Most Recent Lab Values WBC 3.1 10^3/ul (4.5-11.0) L 11/16/17 09:19 RBC 3.26 10^6/uL (3.5-6.1) L 11/16/17 09:19 Hgb 9.1 g/dL (12.0-16.0) L 11/16/17 09:19 Hct 28.0 % (36.0-48.0) L 11/16/17 09: MCV 85.9 fl (80.0-105.0) 11/16/17: MCH 27.9 pg (25.0-35.0) 11/16/17 09: MCHC 32.5 g/dl (31.0-37.0) 11/16/17: RDW 20.8 % (11.5-14.5) H 11/16/17: Plt Count 63 10^3/uL (120.0-450.0) L 11/16/17: MPV 8.7 fl (7.0-11.0) 11/16/17: Gran % 53.7 % (50.0-68.0) 11/16/17: Lymph % (Auto) 21.1 % (22.0-35.0) L 11/16/17: [place] % (Auto) 10.9 % (1.0-6.0) H 11/16/17 09: Eos % (Auto) 13.7 % (1.5-5.0) H 11/16/17: Baso % (Auto) 0.6 % (0.0-3.0) 11/16/17: Gran # 1.68 (1.4-6.5) 11/16/17: Lymph # (Auto) 0.7 (1.2-3.4) L 11/16/17: [place] # (Auto) 0.3 (0.1-0.6) 11/16/17: Eos # (Auto) 0.4 (0.0-0.7) 11/16/17: Baso # (Auto) 0.02 K/mm3 (0.0-2.0) 11/16/17: PT 13.2 SECONDS (9.4-12.5) H 11/16/17 09:19 INR 1.14 (0.93-1.08) H 11/16/17 09:19 pO2 39 mm/Hg (30-55) 11/16/17: VBG pH 7.46 (7.32-7.43) H 11/16/17 09:19 VBG pCO2 43.0 (40-60) 11/16/17 09:19 VBG HCO3 30.6 mmol/l (21-28) H 11/16/17 09:19 VBG Total CO2 31.9 mmol.L (22-28) H 11/16/17 09:19 VBG O2 Sat (Calc) 85.7 % (40-65) H 11/16/17 09:19 VBG Base Excess 6.0 mmol/L (0.0-2.0) H 11/16/17 09:19 VBG Potassium 3.4 mmol/L (3.6-5.2) L 11/16/17 09:19 Sodium 137.0 mmol/L (132-148) 11/16/17 09:19 Chloride 106.0 mmol/L (98-107) 11/16/17 09:19 Glucose 154 mg/dl (65-105) H 11/16/17 09:19 Lactate 1.5 mmol/L (0.7-2.1) 11/16/17 09:19 FiO2 21.0 % 11/16/17 09:19 Sodium 138 mmol/L (132-148) 11/16/17 09:19 Potassium 3.5 mmol/L (3.6-5.0) L 11/16/17 09:19 Chloride 102 mmol/L (98-107) 11/16/17 09:19 Carbon Dioxide 28 mmol/L (21-33) 11/16/17 09:19 Anion Gap 11 (10-20) 11/16/17 09:19 BUN 18 mg/dL (7-21) 11/16/17 09:19 Creatinine 0.6 mg/dl (0.7-1.2) L 11/16/17 09:19 Est GFR ( Amer) > 60 11/16/17 09:19 Est GFR (Non-Af Amer) > 60 11/16/17 09:19 Random Glucose 146 mg/dL (70-110) H 11/16/17 09:19 Calcium 9.1 mg/dL (8.4-10.5) 11/16/17 09:19 Total Bilirubin 2.8 mg/dL (0.2-1.3) H 11/16/17 09:19 AST 32 U/L (14-36) 11/16/17 09:19 ALT 41 U/L (7-56) 11/16/17 09:19 Alkaline Phosphatase 97 U/L (38-126) 11/16/17 09:19 Lactate Dehydrogenase 815 U/L (333-699) H 11/16/17 09:19 Total Creatine Kinase 69 U/L (35-230) 11/16/17 09:19 Troponin I 0.06 ng/mL D 11/16/17 09:19 NT-Pro-B Natriuret Pep 852 pg/mL (0-450) H 11/16/17 09:19 Total Protein 5.7 g/dL (5.8-8.3) L 11/16/17 09:19 Albumin 2.8 g/dL (3.0-4.8) L 11/16/17 09:19 Globulin 2.9 gm/dL 11/16/17 09:19 Albumin/Globulin Ratio 1.0 (1.1-1.8) L 11/16/17 09:19 Venous Blood Potassium 3.4 mmol/L (3.6-5.2) L 11/16/17 09:19 Urine Color Yellow (YELLOW) 11/16/17 12:15 Urine Appearance Clear (CLEAR) 11/16/17 12:15 Urine pH 6.0 (4.7-8.0) 11/16/17 12:15 Ur Specific [place] 1.020 (1.005-1.035) 11/16/17 12:15 Urine Protein Negative mg/dL (<30 mg/dL) 11/16/17 12:15 Urine Glucose (UA) Negative mg/dL (NEGATIVE) 11/16/17 12:15 Urine Ketones Negative mg/dL (NEGATIVE) 11/16/17 12:15 Urine Blood Negative (NEGATIVE) 11/16/17 12:15 Urine Nitrate Negative (NEGATIVE) 11/16/17 12:15 Urine Bilirubin Negative (NEGATIVE) 11/16/17 12:15 Urine Urobilinogen 4.0 E.U./dL (<1 E.U./dL) H 11/16/17 12:15 Ur Leukocyte Esterase Negative Diana/uL (NEGATIVE) 11/16/17 12:15 - Constitutional Appears: Well, No Acute Distress - Head Exam Head Exam: ATRAUMATIC, NORMAL INSPECTION, NORMOCEPHALIC - Eye Exam Eye Exam: Normal appearance - ENT Exam ENT Exam: Normal External Ear Exam - Neck Exam Neck Exam: Normal Inspection - Respiratory Exam Respiratory Exam: NORMAL BREATHING PATTERN - Cardiovascular Exam Cardiovascular Exam: absent: JVD - GI/Abdominal Exam GI & Abdominal Exam: absent: Distended - Rectal Exam Rectal Exam: Deferred - Exam Additional comments: Deferred. - Extremities Exam Extremities Exam: Normal Inspection - Back Exam Back Exam: NORMAL INSPECTION - Neurological Exam Neurological Exam: Alert, Awake, Oriented x3 - Psychiatric Exam Psychiatric exam: Normal Affect, Normal Mood - Skin Skin Exam: Normal Color Assessment and Plan - Assessment and Plan (Free Text) Assessment: Body aches. CHF. HTN. Cryptogenic cirrhosis. COPD. . DM. Low blood pressure reading. Plan: Tylenol 650 mg PO x 1. Monitor BP. Continue present management.
[2017-11-17] MEDS: Albuterol-Ipratrop 3 mg / 0.5 (3 ml) UD IH SCH ×4 (03:02→19:41)
[2017-11-17 06:30] LABS: BASO # 0.02 K/mm3 (0.0-2.0); BASO % 0.6 % (0.0-3.0); EOS # 0.5 (0.0-0.7); EOS % 15.8 % (1.5-5.0); GRAN # 1.5 (1.4-6.5); GRAN % 45.6 % (50.0-68.0); HEMOGLOBIN 8.1 g/dL (12.0-16.0); LYMPH % 30.1 % (22.0-35.0); MEAN CELL VOLUME 86.7 fl (80.0-105.0); MEAN CORPUSCULAR HEMOGLOBIN 27.6 pg (25.0-35.0); MEAN CORPUSCULAR HGB CONC 31.8 g/dl (31.0-37.0); MEAN PLATELET VOLUME 9.2 fl (7.0-11.0); MONO # 0.3 (0.1-0.6); MONO % 7.9 % (1.0-6.0); RBC 2.94 10^6/uL (3.5-6.1); WHITE BLOOD COUNT 3.3 10^3/ul (4.5-11.0)
[2017-11-17 06:41] LABS: IRON 34 ug/dL (45-180)
[2017-11-17 06:49] LABS: % IRON SATURATION 11 % (20-55); TOTAL IRON BINDING CAPACITY 301 ug/dL (265-497)
[2017-11-17 06:55] LABS: BLOOD UREA NITROGEN 18 mg/dL (7-21); GFR AFRICAN-AMERICAN > 60; GFR NON-AFRICAN AMERICAN > 60
[2017-11-17 06:56] LABS: ALB/GLOB RATIO 0.9 (1.1-1.8); ALBUMIN 2.3 g/dL (3.0-4.8); ALT/SGPT 32 U/L (7-56); AST/SGOT 30 U/L (14-36); CALCIUM 8.9 mg/dL (8.4-10.5); HDL CHOLESTEROL 49 mg/dL (29-60); LDL CHOLESTEROL 79 mg/dL (0-129)
[2017-11-17] MEDS: Insulin Reg-LOW-Coverage SC SCH ×4 (08:16→21:16)
[2017-11-17] MEDS ORDERED: Potassium Chloride 20 mEq ER Tab PO ONE (09:21)
--- NOTE | 2017-11-17 12:18 | HP ---
DATE OF SERVICE: 11/16/2017 CHIEF COMPLAINT: Fall, altered mental status, back pain. HISTORY OF PRESENT ILLNESS: Ms. Maria D Sullivan is a 77-year-old female with a past medical history of diabetes mellitus, hypertension, congestive heart failure, COPD, critical aortic stenosis, cryptogenic cirrhosis, thrombocytopenia, lower extremity edema, cellulitis of the legs, epistaxis, came to the emergency room for evaluation of fall 3 days ago. Patient reports that she woke up at 7 a.m. in the morning and fell while walking to her kitchen and patient was unable to get up and started yelling for help. Patient lay on the floor for approximately 6 hours until her grandson came and assisted her. Patient is unsure to what exactly occurred to cause the fall and she does not remember the exact situation or what happened when she fell. She noticed possibly head trauma, but denies any other injuries, nausea, vomiting, abdominal pain, chest pain, shortness of breath. Patient reports that not eating or taking her medication over the past few days. No appetite and is not able to prepare her food. Lives at home alone. come into the emergency room for 3 days because she does not want to take out of her home. Patient appears confused, was seen in my office yesterday and yesterday I had send her to the emergency room, but she never came to emergency room, went home. Today, she came to the emergency room. PAST MEDICAL HISTORY: congestive heart failure, hypertension, COPD, epistaxis, renal disorder, diabetes mellitus type 2, blood transfusion, cellulitis of the legs, gastritis, hiatal hernia, urgency, UTI, urinary bladder infection, depression, cholecystectomy, coronary stents. FAMILY HISTORY: Father and mother, noncontributory. HABITS: Never smoked. No drugs. No ethanol. ALLERGIES: PATIENT IS NOT ALLERGIC TO ANY MEDICATION. HOME MEDICATIONS: Lasix, Aldactone, calcium. REVIEW OF SYSTEMS: pt is seen in the emergency room. She is very confused. No fever. No chills. Complaining about intractable back pain. No headache. No dizziness. Patient is a very poor historian because of her altered mental status. PHYSICAL EXAMINATION: VITAL SIGNS: Temperature is 97.7, pulse 94, blood pressure 105/52, respiratory rate 19. HEENT: Head: Normocephalic, atraumatic. Eyes: PERRLA. Extraocular muscles intact. Conjunctivae clear. Nose patent. Mucous membranes moist. NECK: Supple. No carotid bruit. No JVD or thyromegaly. CHEST: Bilaterally symmetrical. HEART: S1 and S2 positive. LUNGS: Clear to auscultation. ABDOMEN: Soft. Bowel sounds present. No organomegaly. EXTREMITIES: No edema. No cyanosis . NEUROLOGIC: Patient is awake. Moving all 4 extremities, but confused. LABORATORY DATA: White blood cell is 3.9, hemoglobin noted , hematocrit, platelets noted . Sodium 138; potassium 3.5, will be replaced; BUN 18, creatinine 0.6, glucose 146, bilirubin 2.8. ASSESSMENT AND PLAN: Ms. Maria D Sullivan is a 77-year-old lady with hypokalemia, hyperglycemia, abnormal liver function test, leukopenia, anemia, thrombocytopenia, practically pancytopenia, came with altered mental status, fall, back is tender, coronary artery disease, chronic obstructive pulmonary disease, history of angioplasty in the past, rule out rhabdomyolysis. Patient denies chest pain. No shortness of breath or any palpitation. EKG did not show any ST-elevation, shows right bundle-branch block, but running specialist saw the patient and I appreciate the input. ST-elevation myocardial infarction and change the medication. We will follow closely. Discussion done with Emergency room physician, starting the patient on Lasix, beta-kirby as blood pressure is tolerated. Chronic venous stasis of the legs, bilateral leg edema, coronary artery disease, status post stent in 04/2009, history of pancytopenia, history of epistaxis multiple times, status post cauterization many times. Gastrointestinal and deep vein thrombosis prophylaxis. Repeat labs. We will follow up. Kristin Rg MD [facility]
[2017-11-17 12:34] LABS: FERRITIN 14.8 ng/mL
--- NOTE | 2017-11-17 14:20 | CP.PCM.PN ---
<Nasreen Maradiaga - Last Filed: 11/17/17 14:17> Subjective - Date & Time of Evaluation Date of Evaluation: 11/17/17 Time of Evaluation: 10:00 - Subjective Subjective: Chief Complaint: s/p fall, unsteady gait 77yr female w/ history of CHF, HTN, cirrhosis of liver, COPD, lower extremmity edema, DM II (non-insulin dependent), gastric hernia, hiatial hernia , and recurrent epistaxis. Pt recently discharged from [facility] for intermittent L sided epixstais, CHF, & bilateral lower extremity edema w. possible cellulitis on 10/25-11/03. Pt admitted to [facility] s/p fall with injury, CHF, critical aortic valve stenosis, thrombocytopenia, gait instability, generalized weakness, confusion and compression fracture of lumbar spine. Today, pt seen at bedside with no distress. Denies any shortness of breath, chest pain, headache, fever, chills, n/v, hemoptysis, urinary changes, or diarrhea. Objective - Vital Signs/Intake and Output Vital Signs (last 24 hours): Temp Pulse Resp BP Pulse Ox 98.2 F 71 17 115/54 L 98 11/17/17 12:00 11/17/17 12:00 11/17/17 12:00 11/17/17 12:00 11/17/17 06:00 Intake and Output: 11/17/17 11/17/17 06:59 18:59 Intake Total 540 Balance 540 - Medications Medications: Current Medications Acetaminophen (Tylenol 325mg Tab) 650 mg PO Q4H PRN PRN Reason: Pain, Mild (1-3) Last Admin: 11/17/17 10:51 Dose: 650 mg Albuterol/Ipratropium (Duoneb 3 Mg/0.5 Mg (3 Ml) Ud) 3 ml IH [id number] [facility] Last Admin: 11/17/17 07:54 Dose: 3 ml Calcium Carbonate (Oscal) 500 mg PO DAILY [facility] Last Admin: 11/17/17 10:50 Dose: 500 mg Famotidine (Pepcid) 40 mg PO HS [facility] Furosemide (Lasix) 40 mg IV DAILY [facility] Last Admin: 11/17/17 10:46 Dose: 40 mg Insulin Human Regular (Humulin R Low) 0 units SC ACHS [facility] PRN Reason: Protocol Last Admin: 11/17/17 08:16 Dose: Not Given Metoprolol Tartrate (Lopressor) 12.5 mg PO BID [facility] Last Admin: 11/17/17 10:48 Dose: 12.5 mg Spironolactone (Aldactone) 25 mg PO DIN [facility] Last Admin: 11/16/17 18:32 Dose: 25 mg - Labs Labs: 11/17/17 05:30 11/17/17 05:30 PT 13.2 SECONDS (9.4-12.5) H 11/16/17 09:19 INR 1.14 (0.93-1.08) H 11/16/17 09:19 - Constitutional Appears: Chronically Ill - Head Exam Additional comments: L forehead abrasion - Eye Exam Eye Exam: Normal appearance - ENT Exam ENT Exam: Mucous Membranes Moist, Normal Exam - Neck Exam Neck Exam: Full ROM, Normal Inspection. absent: Lymphadenopathy - Respiratory Exam Respiratory Exam: Clear to Ausculation Bilateral, NORMAL BREATHING PATTERN - Cardiovascular Exam Cardiovascular Exam: REGULAR RHYTHM, +S1, +S2, Murmur - GI/Abdominal Exam GI & Abdominal Exam: Distended, Soft, Normal Bowel Sounds. absent: Tenderness - Extremities Exam Extremities Exam: Joint Swelling, Pedal Edema - Back Exam Back Exam: paraspinal tenderness, vertebral tenderness - Neurological Exam Neurological Exam: Alert, Awake, Oriented x3 - Psychiatric Exam Psychiatric exam: Anxious, Depressed - Skin Skin Exam: Dry, Intact, Normal Color, Warm Assessment and Plan (1) Hypokalemia Status: Acute (2) Dehydration Status: Acute (3) CHF (congestive heart failure) Status: Acute (4) Compression fx, lumbar spine Status: Acute (5) Confusion Status: Acute (6) Critical aortic valve stenosis Status: Acute (7) Frequent falls Status: Acute (8) Gait instability Status: Acute (9) Generalized weakness Status: Acute (10) Thrombocytopenia Status: Acute - Assessment and Plan (Free Text) Plan: IV lasix. Electrolytes replaced. Cultures: Blood NEGATIVE, urine NEGATIVE. PT/ OT ordered. VTE/GI prophlyaxis. pain managment: tylenol Consults: IR - Dr. Praveen Augustine Cardio - Dr. Guillermo Pulmo - Dr. Storm Reviewed: MRI spinal thoracic = chronic appearing T12 compression fracture, L1 vertebral body consistent with an acute compression fracture, endplate L2 consistent with an acute or subacute compression fracture CT lumbar spine = severe bone demineralization, osteoporotic compression fracture deformities in L1, L2 and L4 vertebral bodies, advanced multilevel degenerative disc disease worse at L4-L5 with severe bilateral neural foraminal narrowing and mild spinal canal stenosis, old osteoporotic compression deformity in the T12 vertebral body, small R & trace L pleural effusion CT cervical spine = multilevel degenerative disc disease, wore at C4-C5 without spinal canal stenosis CT head = WNL CXR = WNL ECG = ABNORMAL, ST, R BBB, LAD, NSSTW changes <Kristin Rg - Last Filed: 11/17/17 21:31> Objective - Vital Signs/Intake and Output Vital Signs (last 24 hours): Temp Pulse Resp BP Pulse Ox 98 F 75 18 100/40 L 98 11/17/17 18:00 11/17/17 18:33 11/17/17 18:00 11/17/17 18:33 11/17/17 06:00 Intake and Output: 11/17/17 11/18/17 18:59 06:59 Intake Total 540 Output Total 550 Balance -10 - Medications Medications: Current Medications Acetaminophen (Tylenol 325mg Tab) 650 mg PO Q4H PRN PRN Reason: Pain, Mild (1-3) Last Admin: 11/17/17 20:14 Dose: 650 mg Albuterol/Ipratropium (Duoneb 3 Mg/0.5 Mg (3 Ml) Ud) 3 ml IH [id number] [facility] Last Admin: 11/17/17 19:41 Dose: 3 ml Calcium Carbonate (Oscal) 500 mg PO DAILY [facility] Last Admin: 11/17/17 10:50 Dose: 500 mg Famotidine (Pepcid) 40 mg PO HS [facility] Furosemide (Lasix) 40 mg IV DAILY [facility] Last Admin: 11/17/17 10:46 Dose: 40 mg Insulin Human Regular (Humulin R Low) 0 units SC ACHS [facility] PRN Reason: Protocol Last Admin: 11/17/17 21:16 Dose: Not Given Metoprolol Tartrate (Lopressor) 12.5 mg PO BID [facility] Last Admin: 11/17/17 18:33 Dose: Not Given Spironolactone (Aldactone) 25 mg PO DIN [facility] Last Admin: 11/17/17 21:15 Dose: Not Given - Labs Labs: 11/17/17 05:30 11/17/17 05:30 PT 13.2 SECONDS (9.4-12.5) H 11/16/17 09:19 INR 1.14 (0.93-1.08) H 11/16/17 09:19 Assessment and Plan - Assessment and Plan (Free Text) Plan: 77yr female w/ history of CHF, HTN, cirrhosis of liver, COPD, lower extremmity edema, DM II (non-insulin dependent), gastric hernia, hiatial hernia , and recurrent epistaxis. Pt recently discharged from [facility] for intermittent L sided epixstais, CHF, & bilateral lower extremity edema w. possible cellulitis on 10/25-11/03. Pt admitted to [facility] s/p fall with injury, CHF, critical aortic valve stenosis, thrombocytopenia, gait instability, generalized weakness, confusion and compression fracture of lumbar spine. Today, pt seen at bedside with no distress. Denies any shortness of breath, chest pain, headache, fever, chills, n/v, hemoptysis, urinary changes, or diarrhea . pt is seen and examined at bed side . agreed all above . chart , meds and labs noted , will f/u
--- NOTE | 2017-11-17 14:27 | PN ---
DATE: REASON FOR THE CONSULTATION: Swelling of the legs, shortness of breath, aortic stenosis. Initial evaluation yesterday for code STEMI, which was canceled because the patient had no chest pain, no code STEMI, and no ST elevation CO. SUBJECTIVE: The patient denies any chest pain, shortness of breath, or any palpitations. OBJECTIVE: GENERAL: Not in apparent distress. Discussed in length with the patient, patient's living will, patient said that she has a living will and does not want to be resuscitated. VITAL SIGNS: Temperature afebrile, heart rate 85, blood pressure 98/55. HEENT: PERRLA. Extraocular muscles intact. NECK: Supple. No carotid bruit or thyromegaly. CHEST: Clear to auscultation. HEART: S1 and S2, regular. ABDOMEN: Soft. EXTREMITIES: Clubbing and cyanosis negative. LABORATORY DATA: Blood workup as follows: WBC 3.3, hemoglobin 8.1, hematocrit 25.5, and platelet count 68. Chemistry shows sodium 136, potassium 3.4, chloride 104, carbon dioxide 29, anion gap of 7. BUN 18, creatinine 0.6. Total protein 4.9, albumin 2.3, albumin-globulin ratio 0.9. TSH 1.33. Total cholesterol 162, triglycerides 50, LDL 79, HDL 49. IMPRESSION: Thrombocytopenia; anemia; pancytopenia; cryptogenic cirrhosis; hypokalemia; protein-calorie malnutrition severe, which was present on admission that was moderate; severe aortic stenosis; history of coronary artery disease; history of stent in April 2009, in right coronary artery; right bundle branch block; no evidence of acute myocardial infarction. Previous echo shows ejection fraction 65% to 70%, aortic valve moderately calcified, kgdh-or-turagzkx regurgitation, cmurckre-wf-xzdkda aortic stenosis on the previous echo, mitral regurgitation, moderate tricuspid regurgitation, right ventricular systolic pressure of 50 dated 10/12/2015. RECOMMENDATIONS: We will repeat echo to assess LV function. The patient is not a candidate for anticoagulation because of severe nosebleed multiple times spontaneously, anemia. We will resume low doses of beta-kirby and low doses of Lasix, spironolactone. We will supplement potassium. In case nutrition support, we will add Ensure pudding. As mentioned above, discussed with the patient living will, patient said she has a living will and does not want to be resuscitated and does not want to be brought back again. We will inform Dr. Rg and write the DNR. We will follow with you. The patient also some Tylenol p.r.n. for back pain before she go to the MRI. We will write p.r.n. Tylenol. As patient mentioned above, we will write the DNR order, DNR/DNI, and inform Dr. Rg. We will also give Tylenol p.r.n. every 6 hours for pain. Thank you Dr. Rg for providing us the opportunity in taking care of the patient, Laurie Killian. Pablo Guillermo MD
--- NOTE | 2017-11-17 15:28 | MRI ---
PROCEDURE: MR LUMBAR SPINE WITHOUT CONTRAST HISTORY: Evaluate lumbar comp fx for kypho COMPARISON: None available. TECHNIQUE: Multiecho multiplanar sequences were performed through the lumbar spine without the use of intravenous contrast. FINDINGS: Normal lumbar lordosis. There is a chronic compression fracture of T12. There is an acute mild compression fracture of the superior endplate of L1 with associated marrow edema. This is consistent with an acute or subacute event. There is also minimal marrow edema adjacent to the vertebral endplates at L2 and L3 with mild compression deformities. Conus medullaris unremarkable at the level of L1 Paraspinal soft tissues are unremarkable. T12-L1: No disc herniation, spinal canal stenosis or neural foraminal narrowing. L1-2: No disc herniation, spinal canal stenosis or neural foraminal narrowing. L2-3: No disc herniation, spinal canal stenosis or neural foraminal narrowing. L3-4: Mild disc bulge. Moderate facet arthropathy L4-5: Disc bulge and small left paracentral disc protrusion. Facet arthropathy L5-S1: Facet arthropathy. OTHER FINDINGS: None. IMPRESSION: Acute or subacute mild compression fracture of the superior endplate of L1. Minimal marrow edema around the endplates of L2 and L3 which may also be acute or subacute.
--- NOTE | 2017-11-17 18:44 | CON ---
DATE: 11/17/2017 TIME: 04:45 p.m. CHIEF COMPLAINT/HISTORY OF PRESENT ILLNESS: Ms. Sullivan is a 77-year-old female who was admitted after a fall. She is complaining of severe lumbar back pain. Her lumbar MRI demonstrates multiple lumbar compression fractures. There are mild acute fractures of L1, L2 and L3. Old healed fractures of T12 and L4 are present. Mild to moderate degenerative changes are also seen. Ms. Sullivan describes a similar compression fracture event in May 2017. She treated that conservatively and responded well to physical therapy. She denies any bowel or bladder issues. No change in her lower extremities is appreciated. Her past medical history is significant for congestive heart failure, cryptogenic cirrhosis, diabetes, high blood pressure, critical aortic stenosis and COPD. I discussed all options with Ms. Sullivan. This included kyphoplasty of the acute fractures. She would prefer to attempt conservative management initially and reconsider kyphoplasty if her pain does not improve. I support her decision. Please contact me if she needs to be reevaluated. Praveen Augustine MD
--- NOTE | 2017-11-17 20:56 | CARD ---
APPROVED REPORT EXAM: Two-dimensional and M-mode echocardiogram with Doppler and color Doppler. INDICATION 2D DIMENSIONS Left Atrium (2D)4.9 (1.6-4.0cm)IVSd1.2 (0.7-1.1cm) LVDd4.4 (3.9-5.9cm)LVOT Diameter1.6 (1.8-2.4cm) PWd1.3 (0.7-1.1cm)LVDs2.7 (2.5-4.0cm) FS (%) 37.4 %LVEF (%)67.6 (>50%) M-Mode DIMENSIONS Aortic Root3.30 (2.2-3.7cm)Aortic Cusp Exc.0.50 (1.5-2.0cm) Aortic Valve AoV Peak Dyovhert947.0cm/sAoV OLK695.0cmAO Peak GR.148mmHg LVOT Peak Zptxdxxd285.0cm/sLVOT VTI34.40cmAO Mean GR.84mmHg CORDELL (VMAX)0.07cz2VXR (VTI)0.95wx2JT P 1/2 Emdk234fb Mitral Valve MV E Pcnyuyml913.0cm/sMV A Ljtbyocf309.0cm/sMV TLC70cr E/A ratio0.9MVA (PHT)2.34cm2 TDI Lateral E' Peak V6.82cm/sMedial E' Peak V5.95cm/sE/Lateral E'18.8 E/Medial E'21.5 Pulmonary Valve PV Peak Bzdxsvzi282.0cm/sPV Peak Grad.8mmHg Tricuspid Valve TR Peak Czhaibjt220jh/sRAP GLTHTZAS17boDyKE Peak Gr.51mmHg QQGG68tpOd LEFT VENTRICLE The left ventricle is normal size. There is mild to moderate concentric left ventricular hypertrophy. The left ventricular function is normal.EF-60-65% There is normal LV segmental wall motion. Transmitral Doppler flow pattern is Grade III-reversible restrictive diastolic dysfunction. No left ventricle thrombus noted on this study. There is no ventricular septal defect visualized. There is no left ventricular aneurysm. There is no mass noted in the left ventricle. RIGHT VENTRICLE The right ventricle is moderately dilated. There is normal right ventricular wall thickness. Systolic function of RV is moderately reduced. ATRIA The left atrium is moderately dilated. The right atrium is moderately dilated. The interatrial septum is intact with no evidence for an atrial septal defect. AORTIC VALVE The aortic valve is calcified and displays decreased opening. There is mild to moderate aortic regurgitation. There is severe valvular aortic stenosis. There is no aortic valvular vegetation. MITRAL VALVE The mitral valve is thickened but opens well. Mitral annular calcification is moderate to severe. Mitral regurgitation is moderate. There is no mitral valve stenosis. TRICUSPID VALVE The tricuspid valve leaflets are thickened or calcified, but open well. There is moderate tricuspid regurgitation.RVSP-61 mmofhg. There is moderate pulmonary hypertension. There is no tricuspid valve stenosis. There is no tricuspid valve prolapse or vegetation. PULMONIC VALVE The pulmonic valve is mildly thickened. There is mild to moderate pulmonic valvular regurgitation. There is no pulmonic valvular stenosis. GREAT VESSELS The aortic root is normal in size. The ascending aorta is normal in size. The pulmonary artery is normal. The IVC is normal in size and collapses >50% with inspiration. PERICARDIAL EFFUSION There is no pleural effusion. There is no pericardial effusion. <Conclusion> The left ventricle is normal size. There is mild to moderate concentric left ventricular hypertrophy. The left ventricular function is normal.EF-60-65% The right ventricle is moderately dilated. Systolic function of RV is moderately reduced. There is mild to moderate aortic regurgitation. There is severe valvular aortic stenosis. Mitral regurgitation is moderate. There is moderate tricuspid regurgitation.RVSP-61 mmofhg. There is moderate pulmonary hypertension. There is mild to moderate pulmonic valvular regurgitation. The IVC is normal in size and collapses >50% with inspiration. There is no pericardial effusion.
[2017-11-18] MEDS: Albuterol-Ipratrop 3 mg / 0.5 (3 ml) UD IH SCH ×4 (03:29→21:15)
[2017-11-18] MEDS: Insulin Reg-LOW-Coverage SC SCH ×4 (09:07→23:09)
[2017-11-18] MEDS ORDERED: Morphine 4 mg/ml ISec IVP PRN (10:55)
[2017-11-18] MEDS ORDERED: HYDROmorphone 0.5 mg/0.5 ml ISec IVP PRN (11:41)
[2017-11-18] MEDS: Morphine 4 mg/ml ISec IVP PRN ×2 (13:18→20:25)
[2017-11-18] MEDS ORDERED: Morphine 4 mg/ml ISec IVP SCH (18:00)
--- NOTE | 2017-11-18 21:14 | PN ---
DATE: SUBJECTIVE: The patient is a 77-year-old female. The patient was seen and examined at the bedside, sitting comfortably, complaining about back pain. Only Tylenol is not helping. No nausea or vomiting. No fever, no chills. No hematuria or hematochezia. No swelling of the leg. No chest pain, no palpitation. PHYSICAL EXAMINATION: VITAL SIGNS: Temperature 98.1, pulse 79, blood pressure 93/55, respiratory rate 19. HEENT: Head: Normocephalic and atraumatic. Eyes: PERRLA. Extraocular muscles intact. Conjunctivae clear. Nose patent. Mucous membrane moist. NECK: Supple. No carotid bruit. No JVD or thyromegaly. CHEST: Bilaterally symmetrical. HEART: S1 and S2 positive. LUNGS: Clear to auscultation. ABDOMEN: Soft. Bowel sounds present. No organomegaly. EXTREMITIES: No edema, no cyanosis. NEUROLOGIC: The patient is awake and alert. Moving all 4 extremities. No focal deficits. MEDICATIONS: Aldactone, Lasix, Lopressor, morphine, calcium, Pepcid, Tylenol. LABORATORY DATA: White blood cell 3.3, hemoglobin 8.1, hematocrit 25.5, platelets 68. Glucose 112. ASSESSMENT AND PLAN: Ms. Maria D Sullivan is a 77-year-old lady with leukopenia, anemia, thrombocytopenia, hyperglycemia, has severe lumbar back pain. MRI demonstrates multiple lumbar compression fractures with mild acute fracture of L1, L2 and L3. Old healed fracture of T12 and L4 are present. Jgim-ko-rjlxjdun degenerative changes. Ms. Maria D Sullivan has similar type of fracture in 05/2017, so treated that time conservatively and responded very well to physical therapy. She denies any bowel or bladder issues. No change in her lower extremity movements and numbness. So, plan is that give physical therapy. Option discussed by Dr. Praveen Augustine with the patient about kyphoplasty of acute fracture. She preferred conservative management. Initially, I have to reconsider kyphoplasty if her pain does not improve with conservative treatment. She then decided conservative treatment. The patient has history of congestive heart failure, cryptogenic cirrhosis, diabetes mellitus type 2 kij-eltvwrb-nljnafbrj, hypertension, critical aortic stenosis, chronic obstructive pulmonary disease, asthma. According to the patient only Tylenol is not working. I started Dilaudid, but hospital has problem with Dilaudid, so I started on morphine and physical therapy. The patient has pancytopenia, status post blood transfusion, hypokalemia, protein-calorie malnutrition. Started physical therapy, repeat labs. We will follow up. Kristin Rg MD
[2017-11-19] MEDS: Albuterol-Ipratrop 3 mg / 0.5 (3 ml) UD IH SCH ×4 (04:30→20:40)
[2017-11-19] MEDS: Insulin Reg-LOW-Coverage SC SCH ×4 (07:52→21:58)
[2017-11-19] MEDS: Morphine 4 mg/ml ISec IVP PRN ×2 (10:06→20:13)
[2017-11-19] MEDS: Lidocaine 5% Patch TOP SCH (16:05)
--- NOTE | 2017-11-19 20:33 | PN ---
DATE: SUBJECTIVE: The patient is seen and examined on the bedside, complaining about back pain, especially in the lower back, sleepy, arousable, moving all 4 extremities, no focal deficits. No nausea, vomiting or diarrhea. No headache, no chest pain, no palpitation, no hematuria or hematochezia. PHYSICAL EXAMINATION: VITAL SIGNS: Temperature 98.5, pulse 104, blood pressure 110/67, respiratory rate 20. HEENT: Head normocephalic, atraumatic. Eyes PERRLA. Extraocular muscles intact. Conjunctivae clear. Nose patent. Mucous membrane moist. NECK: Supple. No carotid bruit. No JVD or thyromegaly. CHEST: Bilaterally symmetrical. HEART: S1 and S2 positive. LUNGS: Clear to auscultation. ABDOMEN: Soft. Bowel sounds positive. No organomegaly. EXTREMITIES: No edema. No cyanosis. REVIEW OF SYSTEMS: Negative except as above. LABORATORY DATA: White blood cells 3.3, hemoglobin 8.1, hematocrit 25.5, platelets 68. Chemistry: Glucose 168. ASSESSMENT AND PLAN: Ms. Maria D Sullivan is a 77-year-old lady with history of chronic obstructive pulmonary disease, asthma, sleep apnea syndrome, history of leukopenia, anemia, thrombocytopenia, hyperglycemia, severe lumbar back pain, MRI demonstrates multiple lumbar compression fractures with mild acute fracture of L1, L2 and L3. Old healed fracture of T12 and L4, degenerative changes. discussion done with Dr. Praveen Augustine and the patient about conservative treatment. If conservative treatment will fail, then she want to go for kyphoplasty, meanwhile we are doing pain management and giving physical therapy. Gastrointestinal and deep venous thrombosis prophylaxis, repeat labs. We will follow up. Kristin Rg MD [facility]
[2017-11-20] MEDS: Albuterol-Ipratrop 3 mg / 0.5 (3 ml) UD IH SCH ×4 (02:55→21:36)
[2017-11-20] MEDS ORDERED: Magnesium Hydroxide Susp 30 ml UD PO ONE (04:46)
[2017-11-20] MEDS: Insulin Reg-LOW-Coverage SC SCH ×4 (08:21→21:49)
[2017-11-20] MEDS: Lidocaine 5% Patch TOP SCH (11:15)
[2017-11-20 12:04] LABS: BASO # 0.02 K/mm3 (0.0-2.0); BASO % 0.5 % (0.0-3.0); EOS # 0.4 (0.0-0.7); EOS % 9.9 % (1.5-5.0); GRAN # 2.55 (1.4-6.5); GRAN % 65.1 % (50.0-68.0); HEMOGLOBIN 9.2 g/dL (12.0-16.0); LYMPH # 0.6 (1.2-3.4); LYMPH % 15.1 % (22.0-35.0); MEAN CELL VOLUME 87.6 fl (80.0-105.0); MEAN CORPUSCULAR HEMOGLOBIN 27.9 pg (25.0-35.0); MEAN CORPUSCULAR HGB CONC 31.8 g/dl (31.0-37.0); MEAN PLATELET VOLUME 8.5 fl (7.0-11.0); MONO # 0.4 (0.1-0.6); MONO % 9.4 % (1.0-6.0); RBC 3.3 10^6/uL (3.5-6.1); RED CELL DISTRIBUTION WIDTH 20.3 % (11.5-14.5); WHITE BLOOD COUNT 3.9 10^3/ul (4.5-11.0)
[2017-11-20 12:08] LABS: ALB/GLOB RATIO 1.1 (1.1-1.8); ALT/SGPT 33 U/L (7-56); AST/SGOT 41 U/L (14-36); BLOOD UREA NITROGEN 20 mg/dL (7-21); CALCIUM 8.9 mg/dL (8.4-10.5); GFR AFRICAN-AMERICAN > 60; GFR NON-AFRICAN AMERICAN > 60
[2017-11-20] MEDS ORDERED: Magnesium Hydroxide Susp 30 ml UD PO PRN (14:00)
--- NOTE | 2017-11-20 14:04 | CT ---
PROCEDURE: CT Abdomen and Pelvis without intravenous contrast HISTORY: Abdominal pain, constipation COMPARISON: 03/19/2017 CT abdomen and pelvis TECHNIQUE: Unenhanced study. Neither oral nor intravenous contrast administered. Radiation dose: Total exam DLP = 747.80 mGy-cm. This CT exam was performed using one or more of the following dose reduction techniques: Automated exposure control, adjustment of the mA and/or kV according to patient size, and/or use of iterative reconstruction technique. FINDINGS: LOWER THORAX: Bilateral pleural effusions and associated compressive atelectasis of the lower lobes increase compared to the prior study. LIVER: Cirrhotic liver based on overall appearance and contour. GALLBLADDER AND BILE DUCTS: Status post cholecystectomy. No abnormality is seen in the gallbladder fossa. PANCREAS: Unremarkable. No gross lesion or ductal dilatation. SPLEEN: Stable splenomegaly and associated left upper quadrant varices. ADRENALS: Unremarkable. No mass. KIDNEYS AND URETERS: Unremarkable. No hydronephrosis. No solid mass. VASCULATURE: Unremarkable. No aortic aneurysm. BOWEL: Constipation without fecal impaction or obstruction. APPENDIX: No abnormalities to suggest acute appendicitis. No right lower quadrant inflammatory processes identified. PERITONEUM: Low volume abdominal and pelvic ascites new finding compared to the prior study. LYMPH NODES: Unremarkable. No enlarged lymph nodes. BLADDER: Unremarkable. REPRODUCTIVE: Unremarkable. BONES: New vertebral body compression fractures L2, L3 and L4. Multilevel vacuum disc phenomenon identified. OTHER FINDINGS: Worsening anasarca. IMPRESSION: New intra-abdominal pelvic ascites, low volume. New vertebral body wedge deformity/compression fractures lumbar spine. Additional benign and/or incidental findings described above.
[2017-11-20] MEDS: Clotrimazole/Betamethasone Lotion(30 ml) TOP SCH (17:20)
--- NOTE | 2017-11-20 21:52 | PN ---
DATE: 11/20/2017 REASON FOR CONSULTATION AND FOLLOWUP: Swelling of the leg, shortness of breath, ascites, code STEMI, evaluation was canceled, and severe aortic stenosis. PHYSICAL EXAMINATION: VITAL SIGNS: As follows: Temperature afebrile, heart rate 90, blood pressure 122/70. HEENT: PERRLA. Extraocular muscles intact. NECK: Supple. No carotid bruit or thyromegaly. CHEST: Clear to auscultation. HEART: S1 and S2, regular. ABDOMEN: Soft. EXTREMITIES: Clubbing and cyanosis negative. LABORATORY DATA: Blood workup as follows: WBC 3.9, hemoglobin , hematocrit 28.9, platelet count 107. Chemistry shows sodium 130, potassium 4, chloride 102, carbon dioxide , anion gap of 10, BUN 20, creatinine 0.9. The patient had a repeat echocardiography done on 11/17/2017 that showed ejection fraction 55%, right ventricle moderately dilated, RV systolic function moderately reduced RV. Zcnm-nk-ulgaaqmd aortic regurgitation, severe aortic stenosis, moderate mitral regurgitation, moderate tricuspid regurgitation, RV systolic pressure 61, moderate pulmonary hypertension, tmva-lx-nywvyxrd pulmonary insufficiency, thrombocytopenia, nosebleed, aortic stenosis, very frail. Overall, the patient's condition is not good for any invasive procedure. Also, the patient had protein-calorie malnutrition on admission, which was started on Ensure protein, now significantly improved. Now serum albumin 3. So, protein-calorie malnutrition, which is present on admission, now improved. RECOMMENDATION: Increase nutritional support, continue IV Lasix, continue spironolactone, continue supportive care. Overall, the patient's critical long-term prognosis is guarded. Code status DNR/DNI discussed with the patient. The patient wanted to be DNR/DNI, so we made. We will follow with you. Thank you, Dr. Rg, for providing us the opportunity in taking care of the patient, Maria D Sullivan. We will change Lasix in a day or two to p.o. CAT scan done of the abdomen and pelvis that showed pelvic ascites and multiple lumbar compression fracture. Pablo Guillermo MD [facility] # [id number]
[2017-11-20] MEDS: Morphine 4 mg/ml ISec IVP PRN (22:09)
[2017-11-21] MEDS: Albuterol-Ipratrop 3 mg / 0.5 (3 ml) UD IH SCH ×4 (02:19→19:44)
[2017-11-21] MEDS: Insulin Reg-LOW-Coverage SC SCH ×4 (08:16→22:02)
--- NOTE | 2017-11-21 09:22 | PN ---
DATE: 11/20/2017 SUBJECTIVE: The patient is a 77 years old female. The patient was seen and examined at the bedside. Sleepy, arousable. Looking comfortable. Getting constantly pain medication. complaining of lower abdominal pain and severe back pain in lumbar area. No nausea or vomiting. No headache. No dizziness. No chest pain. No palpitation. Do not have bowel movements, milk of magnesia is given. No fever. No chills. PHYSICAL EXAMINATION: VITAL SIGNS: Temperature is 98.8, pulse 65, blood pressure 103/49, respiratory rate is 20. HEENT: Head, normocephalic and atraumatic. Eyes, PERRLA. Extraocular muscles intact. Conjunctivae clear. Nose patent. Mucous membrane moist. NECK: Supple. No carotid bruit. No JVD or thyromegaly. CHEST: Bilaterally symmetrical. HEART: S1, S2 positive. LUNGS: Clear to auscultation. ABDOMEN: Soft. Bowel sounds present. No organomegaly. EXTREMITIES: No edema. No cyanosis. NEUROLOGIC: The patient is awake, alert. Moving all four extremities. No focal deficit. MEDICATIONS: Aldactone, insulin, Lasix, Lidoderm, Lopressor, betamethasone/clotrimazole, milk of magnesia, morphine, Os-Cristo, Pepcid and Tylenol. LABORATORY DATA: White blood cells 3.9, hemoglobin 9.3, hematocrit 28.9, platelets 107. Sodium 139, potassium 4.1, BUN 20, creatinine 0.6, glucose noted . AST is 41. ASSESSMENT AND PLAN: The patient is a 77-year-old female with leukopenia, anemia, thrombocytopenia, practically pancytopenia, uncontrolled diabetes mellitus, abnormal liver function test and in the urine, was complaining about lower abdominal pain. CAT scan of the abdomen and pelvis done, shows bilateral pleural effusion associated with compression; atelectasis of the lower lobes, increased compared to prior study; new intra-abdominal and pelvic ascites, low volume; new vertebral body wedge deformity compression, fracture of lumbar spine. Dr. Praveen Augustine is on the case. Patient has multiple compression fracture of the back. Discussion done with the patient. She preferred conservative-based, wants to get physical therapy, wants to go to CCU, but do not want surgery at this moment. History of asthma, chronic obstructive pulmonary disease, pulmonary hypertension, sleep apnea syndrome, history of cirrhosis of the liver, old healed fracture of T12 and L4, degenerative changes, MRI demonstrates multiple lumbar compression fractures with mild acute angle of L1, L2 and L3. Physical therapy. Out of bed. Gastrointestinal and deep venous thrombosis prophylaxis. We will followup. Kristin Rg MD MTDD
[2017-11-21] MEDS: Clotrimazole/Betamethasone Lotion(30 ml) TOP SCH ×2 (10:14→17:28)
[2017-11-21] MEDS: Lidocaine 5% Patch TOP SCH (10:15)
[2017-11-21] MEDS: Morphine 4 mg/ml ISec IVP PRN ×2 (13:00→22:03)
--- NOTE | 2017-11-21 15:53 | PN ---
DATE: REASON FOR CONSULTATION: Swelling of the leg, shortness of breath, ascites, compression fracture of vertebrae and severe aortic stenosis. SUBJECTIVE: Patient denies any chest pain, shortness of breath or any palpitations. OBJECTIVE GENERAL: Not in apparent distress. VITAL SIGNS: Temperature afebrile, heart rate 82, blood pressure 118/52. HEENT: PERRLA. Extraocular muscles intact. NECK: Supple. No carotid bruit or thyromegaly. CHEST: Clear to auscultation. HEART: S1 and S2, regular. ABDOMEN: Soft. EXTREMITIES: Clubbing and cyanosis negative. LABORATORY DATA: Blood workup as follows: WBC 3.9, hemoglobin 9.8, hematocrit 28.9, and platelet count 107. Chemistry shows sodium 132, potassium 4.2, chloride 102, carbon dioxide 28, anion gap of 10, BUN 20, creatinine 0.6. IMPRESSION: Moderate mitral regurgitation, tkcu-kz-toiqoysm aortic regurgitation, severe aortic stenosis, moderate tricuspid regurgitation, right ventricular systolic pressure 61, moderate pulmonary hypertension, cevs-by-utdpqcml pulmonary insufficiency, thrombocytopenia, nosebleed, frail, compression fracture of the vertebrae. Protein-calorie malnutrition on admission was improved. RECOMMENDATIONS: Continue current medication including nutritional support; increase nutritional support, rehab, gentle diuretics, spironolactone, metoprolol dose as blood pressure is tolerated, medical treatment; because of the frailty and overall patient's condition, not a candidate for aggressive treatment. Thank you, Dr. Rg, for providing us the opportunity in taking care of the patient, Maria D Sullivan. Pablo Guillermo MD
--- NOTE | 2017-11-21 23:43 | PN ---
DATE: SUBJECTIVE: The patient was seen and examined at the bedside, looking comfortable. Coughing is better. Shortness of breath is better. Still having back pain. Has lower abdominal pain. No fever. No chills. No headache. No dizziness. PHYSICAL EXAMINATION: VITAL SIGNS: Temperature 98.6, heart rate 82, respiratory rate 118/52. HEENT: Head normocephalic, atraumatic. Eyes PERRLA. Extraocular muscles intact. Conjunctivae clear. Nose patent. Mucous membrane moist. NECK: Supple. No carotid bruit. No JVD or thyromegaly. CHEST: Bilaterally symmetrical. HEART: S1 and S2 positive. LUNGS: Clear to auscultation. ABDOMEN: Soft. Bowel sounds positive. No organomegaly. EXTREMITIES: No edema. No cyanosis. NEUROLOGICAL: The patient is awake and alert. Moving all 4 extremities. No focal deficits. LABORATORY DATA: White blood cells 3.9, hemoglobin 9.8, hematocrit 28.9, platelets 107. Sodium 132, potassium 4.2, BUN 20, creatinine 0.6. ASSESSMENT AND PLAN: Ms. Maria D Sullivan, 77-year-old lady with moderate mitral regurgitation, severe aortic stenosis, moderate pulmonary hypertension, thrombocytopenia, anemia, leukopenia, history of multiple time epistaxis, has a history of nasal cauterization, compression fracture of the vertebra, protein calorie malnutrition, coronary artery disease. Plan is to continue present medication and continue nutritional support, physical therapy, diuretics, metoprolol. Because of the patient's overall condition and frailty, according to Dr. Guillermo, continue medical treatment. Not a candidate for aggressive treatment. The patient is a do not resuscitate and do not intubate also, getting physical therapy. We will follow up. Kristin Rg MD
[2017-11-22] MEDS: Albuterol-Ipratrop 3 mg / 0.5 (3 ml) UD IH SCH ×4 (02:34→20:19)
[2017-11-22 06:31] LABS: BLOOD UREA NITROGEN 21 mg/dL (7-21); GFR AFRICAN-AMERICAN > 60; GFR NON-AFRICAN AMERICAN > 60
[2017-11-22] MEDS: Insulin Reg-LOW-Coverage SC SCH ×4 (07:52→22:17)
[2017-11-22] MEDS: Lidocaine 5% Patch TOP SCH (09:37)
[2017-11-22] MEDS: Clotrimazole/Betamethasone Lotion(30 ml) TOP SCH ×2 (09:39→17:21)
--- NOTE | 2017-11-22 11:29 | PN ---
DATE: 11/22/2017 REASON FOR THE CONSULTATION: Follow up swelling of the leg, shortness of breath, ascites, compression fracture to vertebra, severe aortic stenosis. SUBJECTIVE: The patient denies any chest pain, shortness of breath or any palpitation. OBJECTIVE: GENERAL: Lying flat in the bed, not in any apparent distress. VITAL SIGNS: Temperature afebrile, heart rate 94, blood pressure 102/45. HEENT: PERRLA. Extraocular muscles intact. NECK: Supple. No carotid bruit. No thyromegaly. CHEST: Clear to auscultation. HEART: S1 and S2 regular. Loud systolic murmur in the aortic area. ABDOMEN: Soft. EXTREMITIES: Clubbing and cyanosis negative. IMPRESSION: Very weak; frail; severe aortic stenosis; bilateral leg swelling; cellulitis; protein-calorie malnutrition on admission, which has significantly improved; pulmonary hypertension, right ventricular systolic pressure of 61; mild to moderate pulmonary insufficiency; thrombocytopenia; cryptogenic cirrhosis; compression fracture of vertebra; mild to moderate aortic regurgitation. Not a candidate for invasive workup or invasive procedure. Overall, the patient's condition is critical. Long-term prognosis is guarded. Code status is do not resuscitate as per the patient's wish. RECOMMENDATION: Continue aggressive medical treatment, increase nutritional support, rehab, gentle diuretics with spironolactone. Continue low-dose metoprolol as blood pressure is tolerated. The patient may get benefit from long-term excellent rehab facility. Monitor electrolytes closely. We will follow. Thank you, Dr. Rg for providing us the opportunity in taking care of the patient, Maria D Sullivan. Pablo Guillermo MD
--- NOTE | 2017-11-22 16:04 | CON ---
DATE: 11/21/2017 PULMONARY CONSULTATION REFERRING PHYSICIAN: Dr. Rg. REASON FOR CONSULTATION: Chronic lung disease, history of cirrhotic liver, admitted secondary to fall vertebral fractures. HISTORY OF PRESENT ILLNESS: This is a 77-year-old female, well known to me from previous admission, has a multiple medical issues including cardiomyopathy with severe aortic stenosis, pulmonary hypertension, chronic obstructive lung disease, recurrent heart failure, cryptogenic cirrhotic liver, portal hypertension, recurrent edema of the lower extremity with cellulitis, sleep apnea syndrome, noncompliant with the CPAP, anemia, thrombocytopenia, leukopenia, history of vertebral fractures in the past. Lives alone, apparently had a fall at home, was brought into emergency room, MRA of the spine was done, which shows a compression fracture of multiple vertebrae. Patient was seen by Dr. Praveen Augustine from Radiology, recommended conservative treatment. Presently, sitting on the side of the bed. Has mild cough, not much short of breath. No chest pain. No nausea, no vomiting. No diarrhea. Does have a leg swelling. PAST MEDICAL HISTORY: As per history present illness. ALLERGIES: NONE KNOWN. SOCIAL HISTORY: Nonsmoker, nondrinker. FAMILY HISTORY: No significant cardiopulmonary disease reported. MEDICATIONS: She is on Aldactone 25 mg daily, DuoNeb every 6 hours, insulin coverage, Lasix 40 mg IV daily, lidocaine patch at affected area, metoprolol tartrate 12.5 mg twice a day, affected area, morphine 3 mg every 6 hours p.r.n., Os-Cristo 500 mg daily, Pepcid 40 mg daily, Tylenol p.r.n. basis. REVIEW OF SYSTEMS: No headache, no rhinitis. Mild cough and shortness of breath. No chest pain. No nausea, no vomiting. No diarrhea. Does have leg swelling. PHYSICAL EXAMINATION: GENERAL: Sitting on the side of the bed, no acute distress. VITAL SIGNS: Temperature is 98, heart rate 76, respiratory rate is 20, blood pressure 100/51, pulse ox 93% on room air. HEENT: Moist mucous membrane. Crowded airway. NECK: Supple. No JVD. LUNGS: Have scattered rhonchi. Few crackles at bases. HEART: S1 and S2. ABDOMEN: Soft, nontender, nondistended. EXTREMITIES: Bilateral edema and erythema. NEUROLOGIC: Awake and alert. Follows simple commands. LABORATORY DATA: Shows hemoglobin 9.2, hematocrit 28.9, WBC 3.9, platelet is 104. INR 1.14. VBG show pH 7.46, pCO2 43, O2 39. Blood sugar 104. Sodium 136, potassium 4.1, chloride 102, bicarbonate 28, BUN 20, creatinine 0.6, glucose 151, calcium 8.9, total bili 2.0, AST 41, ALT 33, alk phos is 77. Albumin is 3.0. Microbiology; blood culture, urine culture, there is no growth. Has a CAT scan of the abdomen and pelvis done yesterday, which shows anasarca, new intra-abdominal pelvic ascites at low volume, new vertebral body wedge deformity/compression fracture of lumbar spine. Had a lumbar MRI done, which shows acute or subacute mild compression fracture of the superior end plate of L1, minimum narrow edema around the L2 and L3, which may be acute or subacute. Had an echocardiogram done in 11/17/2017, which showed right ventricular systolic pressure is 61, left ventricular ejection fraction of 60 to 65, [id number] concentric left ventricular hypertrophy, a severe valvular aortic stenosis, moderate aortic regurg. IMPRESSION AND PLAN: Status post fall with vertebral compression fracture, history of thrombocytopenia, chronic obstructive lung disease, cardiomyopathy with severe aortic stenosis, pulmonary hypertension, sleep apnea syndrome, cryptogenic cirrhosis, ascites, lower extremity edema, which is worsening. So continue bronchodilator. Keep head at 45 degrees, refused continuous positive airway pressure use. Continue pain management. Fall precaution. We will increase Lasix to 40 every 8 hours. Follow up electrolytes. Continue conservative treatment. Physical therapy. Thank you and we will follow with you. Pablo Cantor MD : 11/21/2017 23:15:33
--- NOTE | 2017-11-22 17:43 | PN ---
DATE: 11/22/2017 PULMONARY PROGRESS NOTE REFERRING PHYSICIAN: Kristin Rg MD SUBJECTIVE: She is out of bed to chair. [id number] is at bedside. Night was unremarkable. Feels better. Decreased cough. Decreased shortness of breath. No nausea, no vomiting, no diarrhea. Does have a leg swelling. OBJECTIVE GENERAL: In no acute distress. VITAL SIGNS: Temperature is 98, heart rate is 109, respiratory rate is 18, blood pressure 122/58, pulse ox 95% on room air. HEENT: Moist mucous membranes. Small oral cavity. Crowded airway. NECK: Supple. No JVD. LUNGS: Few scattered rhonchi. HEART: S1 and S2. Has a murmur. ABDOMEN: Soft, nontender. No organomegaly. EXTREMITIES: There is edema and erythema. NEUROLOGIC: Awake, alert, and follows simple commands. MEDICATIONS: She is on Aldactone 25 mg at dinnertime, DuoNeb every 6 hours, insulin coverage, Lasix 40 mg every 8 hours, Lidoderm patch at affected area, metoprolol tartrate 12.5 mg twice a day, Lotrisone to affected area, milk of magnesia p.r.n. basis, morphine 3 mg every 6 hours p.r.n., Os-Cristo 500 mg daily, Tylenol p.r.n. basis. LABORATORY DATA: Shows sodium 135, potassium 4, chloride 100, bicarbonate 32. BUN 21, creatinine 0.7. Blood sugar is 116. Calcium is 9. Microbiology: Blood culture and urine culture, there is no growth. IMPRESSION AND PLAN: Chronic obstructive lung disease, obstructive sleep apnea syndrome, cardiomyopathy, valvular heart disease, coronary artery disease, pulmonary hypertension, status post fall with vertebral fracture, cryptogenic cirrhosis with portal hypertension, recurrent lower extremity swelling, heart failure, constipated. I spoke with family at bedside. All the questions answered. Spoke to nursing staff. We will give stat Dulcolax now and MOM p.r.n. basis. Continue bronchodilator, continue diuretics. Follow up electrolyte. Thank you and we will follow with you. Pablo Cantor MD
[2017-11-22] MEDS ORDERED: guaiFENesin 200 mg/10 ml Syrup UD PO ONE (22:30)
[2017-11-23] MEDS: Albuterol-Ipratrop 3 mg / 0.5 (3 ml) UD IH SCH ×4 (01:47→19:41)
--- NOTE | 2017-11-23 04:26 | PN ---
DATE: SUBJECTIVE: The patient is 77-year-old female. Patient is seen and examined at the bedside, looking comfortable, sitting on the chair. Her rbzgsp-[id number] was sitting on the bedside also. No nausea, vomiting, diarrhea. No headache or dizziness. No chest pain or palpitation. Swelling of the leg is getting better. Cough is getting better. No fever, no chills. Still having back pain. PHYSICAL EXAMINATION: VITAL SIGNS: Temperature 98, heart rate 109, respiratory rate 18, blood pressure 122/58, pulse oximetry 95% on room air. HEENT: Head, normocephalic and atraumatic. Eyes, PERRLA. Extraocular muscles intact. Conjunctivae clear. Nose patent. Mucous membrane moist. NECK: Supple. No carotid bruit. No JVD or thyromegaly. CHEST: Bilaterally symmetrical. HEART: S1, S2 positive. LUNGS: Clear to auscultation. ABDOMEN: Soft. Bowel sounds present. No organomegaly. EXTREMITIES: No edema. No cyanosis. NEUROLOGIC: Patient is awake, alert. Follows simple command. MEDICATIONS: Aldactone, DuoNeb, insulin, Lidoderm patch, metoprolol, Lotrisone, morphine, Os-Cristo, Tylenol. LABORATORY DATA: Sodium 135, potassium 4, BUN 21, creatinine 0.7. Calcium is 9. ASSESSMENT AND PLAN: Ms. Maria D Sullivan is a 77-year-old lady with chronic obstructive lung disease, obstructive sleep apnea syndrome, cardiomyopathy, valvular heart disease, aortic stenosis, coronary artery disease, pulmonary hypertension, status post fall with vertebral compression fracture, seen by Dr. Praveen Augustine, cryptogenic cirrhosis with portal hypertension, recurrent lower extremity cellulitis , heart failure, constipation. All the questions answered. Discussion done with patient, patient's quphii-kv-ozi. Getting milk of magnesia for constipation. Continue bronchodilators. Continue diuretics. Follow up physical therapy, looks like patient needed Transitional Care Unit for physical therapy. We will follow up. Kristin Rg MD ARACELI
[2017-11-23] MEDS: Insulin Reg-LOW-Coverage SC SCH ×3 (07:53→16:49)
[2017-11-23] MEDS: Lidocaine 5% Patch TOP SCH (09:22)
[2017-11-23] MEDS: Clotrimazole/Betamethasone Lotion(30 ml) TOP SCH ×2 (09:24→17:07)
--- NOTE | 2017-11-23 11:11 | CP.PCM.PN ---
Subjective - Date & Time of Evaluation Date of Evaluation: 11/23/17 Time of Evaluation: 07:25 - Subjective Subjective: Seen and examined by me and Dr. Guillermo Reason for consult and follow up: swelling of legs, shortness of breath,severe aortic stenosis, compression fracture of vertebra Subjective: sleeping but easily awaken, no distress, denies chest pain or shortness of breath, feels okay Objective - Vital Signs/Intake and Output Vital Signs (last 24 hours): Temp Pulse Resp BP Pulse Ox 98.3 F 82 18 115/65 96 11/23/17 08:30 11/23/17 09:23 11/23/17 08:30 11/23/17 09:23 11/23/17 08:30 Intake and Output: 11/23/17 11/23/17 06:59 18:59 Intake Total 540 Balance 540 - Medications Medications: Current Medications Acetaminophen (Tylenol 325mg Tab) 650 mg PO Q4H PRN PRN Reason: Pain, Mild (1-3) Last Admin: 11/23/17 04:10 Dose: 650 mg Albuterol/Ipratropium (Duoneb 3 Mg/0.5 Mg (3 Ml) Ud) 3 ml IH L0NDRAL ON LICENSE OF [facility] Last Admin: 11/23/17 07:55 Dose: Not Given Betamethasone/Clotrimazole (Lotrisone) 0 ml TOP BID ON LICENSE OF [facility] Last Admin: 11/23/17 09:24 Dose: 1 applic Calcium Carbonate (Oscal) 500 mg PO DAILY ON LICENSE OF [facility] Last Admin: 11/23/17 09:22 Dose: 500 mg Furosemide (Lasix) 40 mg IV Q8 ON LICENSE OF [facility] Last Admin: 11/23/17 06:36 Dose: Not Given Insulin Human Regular (Humulin R Low) 0 units SC ACHS ON LICENSE OF [facility] PRN Reason: Protocol Last Admin: 11/23/17 07:53 Dose: Not Given Lidocaine (Lidoderm) 1 ea TOP DAILY ON LICENSE OF [facility] Last Admin: 11/23/17 09:22 Dose: 1 ea Magnesium Hydroxide (Milk Of Magnesia) 30 ml PO DAILY PRN PRN Reason: Constipation Metoprolol Tartrate (Lopressor) 12.5 mg PO BID ON LICENSE OF [facility] Last Admin: 11/23/17 09:23 Dose: 12.5 mg Morphine Sulfate (Morphine) 3 mg IVP Q6 PRN PRN Reason: Pain, moderate (4-7) Last Admin: 11/21/17 22:03 Dose: 3 mg Spironolactone (Aldactone) 25 mg PO DIN ALEXANDRA Last Admin: 11/22/17 17:20 Dose: Not Given - Labs Labs: 11/20/17 11:35 11/22/17 06:00 PT 13.2 SECONDS (9.4-12.5) H 11/16/17 09:19 INR 1.14 (0.93-1.08) H 11/16/17 09:19 - Constitutional Appears: No Acute Distress - Head Exam Head Exam: NORMAL INSPECTION - Eye Exam Eye Exam: Normal appearance Pupil Exam: NORMAL ACCOMODATION - ENT Exam ENT Exam: Mucous Membranes Moist, Normal Exam - Respiratory Exam Respiratory Exam: Clear to Ausculation Bilateral, NORMAL BREATHING PATTERN - Cardiovascular Exam Cardiovascular Exam: REGULAR RHYTHM, +S1, +S2 - GI/Abdominal Exam GI & Abdominal Exam: Soft, Normal Bowel Sounds - Extremities Exam Extremities Exam: Normal Capillary Refill Additional comments: 4+ pedal edema bilateral - Neurological Exam Neurological Exam: Alert, Awake, Oriented x3 - Psychiatric Exam Psychiatric exam: Normal Affect, Normal Mood - Skin Skin Exam: Intact, Normal Color, Warm Assessment and Plan - Assessment and Plan (Free Text) Assessment: IMPRESSION: swelling of legs, shortness of breath,severe aortic stenosis, mild to moderate aortic regurgitation,(Not a candidate for invasive procedure) compression fracture of vertebra, pulmonary hypertension,cellulitis, protein- calorie malnutrition, thrombocytopenia, frail/weak Plan: Cardiac status stable Heart rate and blood pressure stable Continue current treatment Continue current medications On Lasix 40 mg every 8 hours, Lopressor 12.5 mg BID, Aldactone 25 mg daily On Lidoderm patch for back pain and morphine sulfate PRN May consider [facility] rehab placement Will follow up Plan and treatment discussed with Dr. Guillermo
[2017-11-23] MEDS ORDERED: Promethazine DM 6.25 mg-15 mg/5 ml Syrup PO PRN ×2 (11:54→11:58)
[2017-11-23 16:48] VITALS: BP 120/58; PULSE 77; RESP 19; TEMP 97.8; O2SAT 97
--- NOTE | 2017-11-24 01:06 | PN ---
DATE: PULMONARY PROGRESS NOTE REFERRING PHYSICIAN: Dr. Rg. SUBJECTIVE: She is lying in the bed, head at 45 degrees, has a mild cough. No nausea, no vomiting, no diarrhea. Decreased leg swelling. OBJECTIVE: GENERAL: In no acute distress. VITAL SIGNS: Temperature is 98, heart rate 77, respiratory rate is 19, blood pressure 120/58, pulse of 97% on room air. HEENT: Moist mucous membrane. No ulcer or thrush. NECK: Supple. No JVD. LUNGS: Has fair airflow with rhonchi. HEART: S1 and S2. ABDOMEN: Soft, nontender. No organomegaly. EXTREMITIES: She does have edema. NEUROLOGIC: Awake and alert, follows simple command. MEDICATIONS: Reviewed. No new changes in medication reported since yesterday. LABORATORY DATA: Reviewed. Blood sugar this morning is 97. IMPRESSION AND PLAN: Chronic obstructive lung disease, obstructive sleep apnea syndrome, cardiomyopathy, valvular heart disease, coronary artery disease, pulmonary hypertension status post fall with vertebral fracture, cryptogenic cirrhosis, portal hypertension, recurrent lower extremity edema, heart failure, constipation. We will continue p.o. and inhaled bronchodilator. Keep head at 45 degrees, diuretics, fall precaution. Sequential compression device to lower extremity. Thank you and we will follow with you. Pablo Cantor MD
--- NOTE | 2017-11-24 08:57 | RAD ---
HISTORY: COMPARISON: 11/16/2017. TECHNIQUE: Chest PA and lateral FINDINGS: LINES AND TUBES: None. LUNG AND PLEURA: There is moderate pulmonary venous congestion. There are small pleural effusions, larger on the left. No pneumothorax. HEART AND MEDIASTINUM: There is persistent mild cardiomegaly. The hilar and mediastinal contours are within normal limits. SKELETAL STRUCTURES: The bony structures are within normal limits for the patient's age. VISUALIZED UPPER ABDOMEN: Normal. OTHER FINDINGS: None. IMPRESSION: Findings are most compatible with mild congestive heart failure.
== END 2017-11-23 20:04 | DRG 551 ==
LOC: ED 08:26 → ERH 12:09 → 3RSO 16:29 → 3RNO 11-18 01:05
PROVIDERS: ADMIT Internal Medicine; ATTEND Internal Medicine
DX: S32.019A Unspecified fracture of first lumbar vertebra, initial encounter for closed fracture (principal); E43 Unspecified severe protein-calorie malnutrition; D61.818 Other pancytopenia; R18.8 Other ascites; I42.9 Cardiomyopathy, unspecified; K76.6 Portal hypertension; L03.115 Cellulitis of right lower limb; L03.116 Cellulitis of left lower limb; S32.029A Unspecified fracture of second lumbar vertebra, initial encounter for closed fracture; S32.039A Unspecified fracture of third lumbar vertebra, initial encounter for closed fracture; I11.0 Hypertensive heart disease with heart failure; I50.9 Heart failure, unspecified; E87.6 Hypokalemia; E86.0 Dehydration; M50.321 Other cervical disc degeneration at C4-C5 level; R26.81 Unsteadiness on feet; K74.69 Other cirrhosis of liver; J44.9 Chronic obstructive pulmonary disease, unspecified; E11.65 Type 2 diabetes mellitus with hyperglycemia; Z66 Do not resuscitate; I25.10 Atherosclerotic heart disease of native coronary artery without angina pectoris; I45.10 Unspecified right bundle-branch block; G47.33 Obstructive sleep apnea (adult) (pediatric); I27.20 Pulmonary hypertension, unspecified; R04.0 Epistaxis; I08.3 Combined rheumatic disorders of mitral, aortic and tricuspid valves; K59.00 Constipation, unspecified; W19.XXXA Unspecified fall, initial encounter; Y93.01 Activity, walking, marching and hiking; Y92.090 Kitchen in other non-institutional residence as the place of occurrence of the external cause; Z95.5 Presence of coronary angioplasty implant and graft; Z79.4 Long term (current) use of insulin

== ENCOUNTER 2017-11-23 20:07 | Inpatient (IN) | payer MEDICARE, OTHER ==
[2017-11-23] MEDS ORDERED: Magnesium Hydroxide Susp 30 ml UD PO PRN (20:15)
[2017-11-23] MEDS: Insulin Reg-LOW-Coverage SC SCH (21:45)
[2017-11-23] MEDS ORDERED: Pneumococcal 23-Valent Vaccine IM ONE (22:29)
[2017-11-24] MEDS: Promethazine DM 6.25 mg-15 mg/5 ml Syrup PO PRN (00:15)
[2017-11-24] MEDS: Albuterol-Ipratrop 3 mg / 0.5 (3 ml) UD IH SCH ×4 (01:47→21:50)
[2017-11-24 05:59] VITALS: BMI 26.8
[2017-11-24] MEDS: Insulin Reg-LOW-Coverage SC SCH ×4 (06:33→21:53)
[2017-11-24] MEDS: Lidocaine 5% Patch TD SCH (09:57)
[2017-11-24] MEDS: Clotrimazole/Betamethasone Lotion(30 ml) TOP SCH ×2 (09:58→17:28)
[2017-11-25] MEDS: Albuterol-Ipratrop 3 mg / 0.5 (3 ml) UD IH SCH ×4 (03:30→20:35)
[2017-11-25] MEDS: Promethazine DM 6.25 mg-15 mg/5 ml Syrup PO PRN (04:05)
--- NOTE | 2017-11-25 06:04 | CON ---
DATE: PULMONARY CONSULTATION REFERRING PHYSICIAN: Dr. Rg REASON FOR CONSULTATION: Cough, shortness of breath, chronic lung disease, sleep apnea syndrome. HISTORY OF PRESENT ILLNESS: This is a 77-year-old female well known to me from acute side of the hospital with multiple medical issues, lives alone, had a fall at home, came into emergency room, found to have a vertebral fracture. Other issues are cardiomyopathy with severe aortic stenosis, pulmonary hypertension, chronic obstructive lung disease, recurrent heart failure, cryptogenic cirrhosis of the liver, portal hypertension, recurrent edema of the lower extremity, cellulitis, sleep apnea syndrome, but noncompliant with CPAP, anemia, thrombocytopenia, leukopenia, history of esophagitis, gastritis, duodenitis, presently admitted to TICU for continued care, complaining about some cough and clear sputum. No nausea, no vomiting. No diarrhea. PAST MEDICAL HISTORY: As per history present illness. ALLERGIES: NONE KNOWN. SOCIAL HISTORY: Nonsmoker, nondrinker. FAMILY HISTORY: No significant cardiopulmonary disease reported. MEDICATIONS: She is on Aldactone 25 mg daily, DuoNeb every 6 hours, insulin coverage, Lasix 40 mg IV every 8 hours, lidocaine daily to affected area, metoprolol tartrate 12.5 mg twice a day, Lotrisone to affected area, milk of magnesia 30 mL three times a day p.r.n., morphine sulfate 3 mg every 6 hours p.r.n., promethazine DM every 8 hours p.r.n., Tylenol p.r.n. basis. REVIEW OF SYSTEMS: No headache, no rhinitis. Has cough. No sputum production, short of breath exertion. No chest pain. No nausea, no vomiting. No abdominal pain. Does have a leg swelling and erythema, also has a spine pain. PHYSICAL EXAMINATION: GENERAL: Lying in the bed, in no acute distress. VITAL SIGNS: Temperature is 98, heart rate is 75, respiratory rate is 20, blood pressure 112/40, pulse of 95% on 2 liters nasal cannula. HEENT: Moist mucous membranes. No ulcer or thrush noted. NECK: Supple. No JVD. LUNGS: Have scattered rhonchi. HEART: S1 and S2. ABDOMEN: Soft, nontender, no organomegaly. EXTREMITIES: Does have edema, erythema of the lower extremities. NEUROLOGIC: Awake and alert. Follows simple commands. LABORATORY DATA: Reviewed. Blood sugar today 125. Microbiology, blood culture and urine culture are unremarkable. Had a chest x-ray done yesterday showing mild congestive heart failure. IMPRESSION AND PLAN: Chronic obstructive lung disease, obstructive sleep apnea syndrome, cardiomyopathy, valvular heart disease, coronary artery disease, pulmonary hypertension, status post fall with vertebral fracture, cryptogenic cirrhosis, portal hypertension, recurrent lower extremity edema and cellulitis, severe heart failure secondary to severe aortic stenosis. Continue bronchodilator, cough suppressor, gastric prophylaxis. Sequential compression device to lower extremity. We will change Lasix hold parameters, only need to hold Lasix if systolic blood pressure less than 84 . Fall precaution. Thank you and we will follow with you. Pablo Cantor MD
[2017-11-25] MEDS: Insulin Reg-LOW-Coverage SC SCH ×4 (06:32→21:42)
[2017-11-25] MEDS: Lidocaine 5% Patch TD SCH (10:12)
[2017-11-25] MEDS: Clotrimazole/Betamethasone Lotion(30 ml) TOP SCH ×2 (10:12→17:18)
--- NOTE | 2017-11-25 20:59 | PN ---
DATE: 11/25/2017 PULMONARY PROGRESS NOTE REFERRING PHYSICIAN: Kristin Rg MD. SUBJECTIVE: She is lying in the bed, sleepy, arousable. Night was unremarkable. Does not want to use CPAP. Feels better with nebulizer treatment. No nausea. No vomiting. No diarrhea. Does have a leg swelling and erythema of the legs. PHYSICAL EXAMINATION: GENERAL: In no acute distress. VITAL SIGNS: Temperature is 98, heart rate is 89, respiratory rate is 16, blood pressure 100/46, pulse ox 97% room air. HEENT: Moist mucous membrane. Crowded airway. NECK: Supple. No JVD. LUNGS: Have a fair airflow with a few rhonchi. HEART: S1 and S2. ABDOMEN: Soft, nontender. No organomegaly. EXTREMITIES: Does have edema and erythema of the lower extremities. NEUROLOGIC: Sleepy, arousable. Follows simple commands. MEDICATIONS: She is on Aldactone 25 mg, also DuoNeb every 6 hours, Lasix 40 mg every 8 hours, Lidoderm patch daily, metoprolol tartrate 12.5 mg twice a day, Lotrisone to affected area, morphine 3 mg every 6 hours p.r.n., Os-Cristo 500 mg daily, Phenergan DM 5 mL three times a day p.r.n., and Tylenol p.r.n. basis. LABORATORY DATA: Shows blood sugar 94. IMPRESSION AND PLAN: Chronic obstructive lung disease, obstructive sleep apnea syndrome, cardiomyopathy, valvular heart disease, coronary artery disease, pulmonary hypertension, status post fall with vertebral fracture, cryptogenic cirrhosis, portal hypertension, recurrent lower extremity edema and cellulitis, severe heart failure secondary to severe aortic stenosis. Pulmonary point of view, doing okay. Continue p.o. and inhaled bronchodilator. Keep head at 45 degrees. 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 Continue therapy. Thank you and we will follow with you. Pablo Canotr MD
[2017-11-26] MEDS: Albuterol-Ipratrop 3 mg / 0.5 (3 ml) UD IH SCH ×4 (01:04→20:43)
[2017-11-26] MEDS: Insulin Reg-LOW-Coverage SC SCH ×4 (06:59→22:38)
[2017-11-26] MEDS: Clotrimazole/Betamethasone Lotion(30 ml) TOP SCH ×2 (11:13→18:24)
[2017-11-26] MEDS: Lidocaine 5% Patch TD SCH (11:13)
[2017-11-26] MEDS: Morphine 4 mg/ml ISec IVP PRN ×2 (16:38→23:14)
--- NOTE | 2017-11-27 00:33 | PN ---
DATE: PULMONARY PROGRESS NOTE REFERRING PHYSICIAN: Dr. Rg. SUBJECTIVE: She is out of bed to chair. Feels much better. No headache. No rhinitis. No new cough. No shortness of breath. Still have a spine pain. No abdominal pain. Has leg swelling. OBJECTIVE: GENERAL: In no acute distress. VITAL SIGNS: Temperature is 98, heart rate is 90, respiratory rate is 18, blood pressure 119/47, pulse ox 98% on room air. HEENT: Small oral cavity. Crowded airway. NECK: Supple. No JVD. LUNGS: Has fair airflow with rhonchi. HEART: S1 and S2. Has a murmur. ABDOMEN: Soft, nontender. No organomegaly. EXTREMITIES: Does have edema. NEUROLOGIC: Awake and alert, follows simple command. MEDICATIONS: She is on Aldactone 25 mg daily, DuoNeb every 6 hours, insulin coverage, Lasix 40 mg IV every 8 hours, lidocaine to affected area, metoprolol tartrate 12.5 mg twice a day, Lotrisone cream to affected area twice a day, morphine 3 mg every 6 hours p.r.n., Os-Cristo 500 mg daily, Phenergan DM 5 mL every 8 hours p.r.n., Tylenol p.r.n. basis. LABORATORY DATA: Show blood sugar this morning is 79. IMPRESSION AND PLAN: Chronic obstructive lung disease, obstructive sleep apnea syndrome, cardiomyopathy, valvular heart disease, coronary artery disease, pulmonary hypertension, status post fall with vertebral fracture, cryptogenic cirrhosis, portal hypertension, recurrent lower extremity edema and cellulitis, severe heart failure secondary to severe aortic stenosis. Pulmonary point of view, she is doing okay. Continue bronchodilator. Keep head at 45 degrees. Sleep apnea precaution. Pain management. Continue therapy. Continue diuretics. Follow up labs in the morning. Thank you and we will follow with you. Pablo Cantor MD
[2017-11-27] MEDS: Albuterol-Ipratrop 3 mg / 0.5 (3 ml) UD IH SCH ×4 (04:16→19:58)
[2017-11-27] MEDS: Insulin Reg-LOW-Coverage SC SCH ×4 (06:43→21:28)
[2017-11-27 07:56] LABS: ALB/GLOB RATIO 0.9 (1.1-1.8); ALBUMIN 2.5 g/dL (3.0-4.8); ALT/SGPT 34 U/L (7-56); AST/SGOT 27 U/L (14-36); BLOOD UREA NITROGEN 20 mg/dL (7-21); CALCIUM 8.3 mg/dL (8.4-10.5); GFR AFRICAN-AMERICAN > 60; GFR NON-AFRICAN AMERICAN > 60
--- NOTE | 2017-11-27 09:00 | CON ---
DATE: 11/24/2017 SERVICE: Cardiology. REASON FOR CONSULTATION AND FOLLOWUP: Continuity of care in Transitional Care Unit, severe aortic stenosis, leg swelling, deconditioning of the body, frail. BRIEF CLINICAL HISTORY: This is a 77-year-old female with multiple admission, known from previous admission, who was recently admitted to medical floor after a fall and at that time ER physician thought that his ST elevation code STEMI was activated. The patient denies any chest pain, code STEMI was canceled and medically treated. The patient's wish was to make herself a DNR as a living will, so the patient made DNR and treated on the floor medically, now transferred to Transitional Care Unit for the continuity of the care. The patient has history of multiple falls and multiple compression fracture. PAST MEDICAL HISTORY: Significant for COPD, thrombocytopenia, cryptogenic cirrhosis, severe aortic stenosis, refused TAVR in the past, history of coronary artery disease, status post PTCA of RCA in 04/2009, history of cirrhosis, history of thrombocytopenia, history of multiple nosebleed off aspirin and Plavix, low platelet count, multiple history of bilateral lower extremity cellulitis, history of CHF, history of hypertension, diabetes, and history of chronic venous stasis ulcer and history of aortic stenosis as mentioned above. The patient had a repeat echo done on this admission dated 11/17/2017, previous workup as follows that revealed ejection fraction preserved at 60 to 65%, moderately RV dilated, RV function moderately reduced, [id number] aortic regurgitation, severe valvular aortic stenosis, moderate mitral regurgitation, moderate tricuspid regurgitation, RV systolic pressure of 61, moderate pulmonary hypertension, and [id number] pulmonary insufficiency, IVC more than 50% collapsing and no pericardial effusion. CURRENT MEDICATIONS: The patient is taking spironolactone 25 mg daily, metoprolol 12.5 mg daily, lidocaine patch, insulin, furosemide, Os-Cristo, and acetaminophen. REVIEW OF SYSTEMS: As per HPI. PHYSICAL EXAMINATION: VITAL SIGNS: Temperature afebrile, heart rate , blood pressure 96/44. HEENT: PERRLA. Extraocular muscles intact. NECK: Supple. No carotid bruit or thyromegaly. CHEST: Clear to auscultation. HEART: S1 and S2 regular. ABDOMEN: Soft. EXTREMITIES: Clubbing and cyanosis negative. LABORATORY DATA: Blood workup most recently WBC 3.9, hemoglobin , hematocrit 28.9, platelet count 107. Chemistry shows sodium 134, potassium , chloride 100, carbon dioxide 32, anion gap of 8, BUN 21, creatinine 0.7. IMPRESSION: Deconditioning of the body, severe aortic stenosis, refused TAVR in the past, frail, cryptogenic cirrhosis, neutropenia, anemia, multiple nosebleed, thrombocytopenia. Repeat echo shows consistent with severe aortic stenosis, preserved left ventricular function, mitral regurgitation, tricuspid regurgitation, right ventricular systolic pressure 61, bilateral leg edema, chronic venous stasis, protein calorie malnutrition on admission, which has significantly improved. RECOMMENDATION: Continue nutritional support, continue aggressive medical treatment. Continue gentle titration on low-dose beta-kirby as tolerated, continue rehab. The patient will get the benefit from long-term extended care facility with supervised treatment, some kind of chcf or rehab facility. We will discuss with you. Thank you, Dr. Rg, for providing us the opportunity in taking care of the patient, Maria D Sullivan. We will follow with you. The patient's code status is DNR/DNI on the floor. Consider resuming the DNR/DNI. We will supplement Ensure to improve her nutritional support. Pablo Guillermo MD
[2017-11-27] MEDS: Lidocaine 5% Patch TD SCH (09:06)
[2017-11-27] MEDS: Clotrimazole/Betamethasone Lotion(30 ml) TOP SCH ×2 (09:06→17:51)
--- NOTE | 2017-11-27 09:21 | HP ---
DATE OF EXAM: 11/24/2017 The patient is 77-year-old female. The patient was seen and examined on 11/24/2017, late evening. CHIEF COMPLAINT: Back pain, shortness of breath, coughing. HISTORY OF PRESENT ILLNESS: Ms. Maria D Sullivan is a 77-year-old lady with multiple medical problems, multiple hospitalizations, multiple ER visits, lives alone, has fall at home, was on the floor for couple of hours, then grandson came and helped her to come out of the floor. The patient was admitted on the medical floor. MRI done. The patient has compression fracture. Dr. Praveen Augustine's consult called and because of her age and multiple comorbidities, decision was made we will take noninvasive treatment and plan is patient will get physical therapy and will see how she is improving. If she will improve with physical therapy on resting and that happened last time also long time ago with her another fracture. If she will improve , otherwise, the patient will go for kyphoplasty now. The patient transferred to TCU for good physical therapy and continuity of care. Still complaining about back pain, coughing, clear phlegm. PAST MEDICAL HISTORY: As above. History of COPD, asthma, multiple fractures, cirrhosis of the liver, pancytopenia. ALLERGIES: THE PATIENT NOT ALLERGIC WITH ANY MEDICATIONS. SOCIAL HISTORY: Never smoked. No drugs. No ethanol. FAMILY HISTORY: Father and mother, noncontributory. REVIEW OF SYSTEMS: Patient is seen and examined at the bedside, looking comfortable. No nausea, vomiting, or diarrhea. No hematuria, no hematochezia. No swelling of the leg, still coughing with phlegm, and complaining about back pain especially when she is walking, still getting physical therapy. PHYSICAL EXAMINATION: VITAL SIGNS: Temperature 98, heart rate 75, respiratory rate 20, blood pressure 112/40, pulse oximetry 95% on 2 L nasal cannula. HEENT: Head: Normocephalic and atraumatic. Eyes: PERRLA. Extraocular muscles intact. Conjunctivae clear. Nose patent. Mucous membrane moist. NECK: Supple. No carotid bruit. No JVD or thyromegaly. CHEST: Bilaterally symmetrical. HEART: S1, S2 positive. LUNGS: Clear to auscultation. ABDOMEN: Soft. Bowel sounds present. No organomegaly. EXTREMITIES: No edema. No cyanosis. NEUROLOGIC: Patient is awake, alert. Moving all four extremities. No focal deficits. LABORATORY DATA: We do not have recent lab today, but I reviewed the all labs. Sugar is 125. MEDICATIONS: Aldactone, DuoNeb, insulin coverage, Lasix, lidocaine, metoprolol, lisinopril, magnesium, morphine sulfate, promethazine. ASSESSMENT AND PLAN: Ms. Maria D Sullivan, my private patient, with multiple comorbidities, has fall, compression fracture of lumbar vertebra, chronic obstructive lung disease, sleep apnea syndrome, cardiomyopathy, valvular heart disease, aortic stenosis, refused surgery, coronary artery disease, pulmonary hypertension, status post fall with vertebral fracture, cryptogenic cirrhosis with portal hypertension, recurrent lower extremity edema, cellulitis, severe heart failure secondary to severe aortic stenosis. Continue bronchodilators, cough suppression, and gastric prophylaxis. Sequential compression devices to lower extremity. The patient's blood pressure is low that is why holding Lasix. Dr. Cantor hold parameters. The patient is getting physical therapy. Living alone. Social workers are working to help to provide ; physical therapy at home. We will follow up. Kristin Rg MD MTDD
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
[2017-11-27] MEDS: Oxycodone/Acetaminophen 5/325 mg Tab PO SCH ×2 (17:51→19:40)
--- NOTE | 2017-11-27 23:30 | PN ---
DATE: 11/27/2017 PULMONARY PROGRESS NOTE REFERRING PHYSICIAN: Dr. Kristin Rg MD. SUBJECTIVE: The patient is sitting up in a chair, having dinner. Night was unremarkable. Feels better. Decreased cough. Decreased shortness of breath. No nausea. No vomiting, diarrhea. Decreased leg swelling. Still has vertebral pain. OBJECTIVE: GENERAL: In no acute distress. VITAL SIGNS: Temp is 98, heart rate is 94, respiratory rate is 18, blood pressure 102/48, pulse ox 94% on room air. HEENT: Moist mucous membrane. No ulcer or thrush noted. NECK: Supple. No JVD. LUNGS: Have a fair airflow with few rhonchi. HEART: S1 and S2. ABDOMEN: Soft and nontender. No organomegaly. EXTREMITIES: Does have edema. NEUROLOGICAL: Awake and alert. Follows simple command. LABORATORY DATA: Shows sodium 136, potassium 4.1, chloride 102, bicarbonate 30, BUN 20, creatinine 0.7, glucose is 80, calcium is 8.3, total bili 1.8, AST 27, ALT 34, alk phos is 88, albumin is 2.5. MEDICATIONS: She is on Aldactone 25 mg daily, DuoNeb every 6 hours, insulin coverage, Lasix 40 mg every 8 hours, Lidocaine patch at affected area, metoprolol tartrate 12.5 mg twice a day, Lotrisone cream at affected area, Os-Cristo 500 mg daily, Percocet 5/325 one tab every 12 hours, Phenergan DM 5 mL three times a day p.r.n., Tylenol p.r.n. basis. IMPRESSION AND PLAN: Chronic obstructive lung disease, obstructive sleep apnea syndrome, cardiomyopathy with valvular heart disease, coronary artery disease, pulmonary hypertension, status post fall with vertebral fracture, cryptogenic cirrhosis, portal hypertension, recurrent lower extremity edema, cellulitis, severe heart failure secondary to severe aortic stenosis, history of esophagitis, gastritis, history of thrombocytopenia. Pulmonary point view, doing okay. Continue bronchodilator. Keep head at 45 degrees. Continue therapy. Sleep apnea precaution. Avoid sedation. Thank you and we will follow with you. Pablo Cantor MD [facility] # [id number]
[2017-11-28] MEDS: Albuterol-Ipratrop 3 mg / 0.5 (3 ml) UD IH SCH ×5 (02:39→22:00)
[2017-11-28] MEDS: Oxycodone/Acetaminophen 5/325 mg Tab PO SCH ×3 (04:24→18:37)
--- NOTE | 2017-11-28 05:26 | PN ---
DATE: 11/27/2017 SUBJECTIVE: The patient is a 77-year-old female. The patient was seen and examined on 11/27/2017 late evening. Lying down comfortably, still complaining about back pain. Night was unremarkable. Feels better, cough is better. Shortness of breath is better. No fever. No chills. No nausea, vomiting or diarrhea. No swelling of the leg. PHYSICAL EXAMINATION: VITAL SIGNS: Temperature 98, heart rate 94, respiratory rate 18, blood pressure 104/48, pulse oximetry 94% on room air. HEENT: Head normocephalic, atraumatic. Eyes PERRLA. Extraocular muscles intact. Conjunctivae clear. Nose patent. Mucous membranes moist. NECK: Supple. No carotid bruit. No JVD or thyromegaly. CHEST: Expansion symmetrical. HEART: S1, S2 positive. LUNGS: Has fair airflow with few rhonchi. ABDOMEN: Soft, nontender, no organomegaly. EXTREMITIES: No edema. No cyanosis. NEUROLOGIC: Awake, alert, follows simple commands. LABORATORY DATA: Sodium 136, potassium 4.1, chloride 102, BUN 20, creatinine 0.7, glucose 80, AST 27, ALT 34. ASSESSMENT AND PLAN: Ms. Maria D Sullivan is a 77-year-old lady with multiple medical problems, chronic obstructive lung disease, sleep apnea syndrome, status post fall, status post vertebral fracture, cardiomyopathy with peripheral heart disease, especially aortic stenosis, coronary artery disease, pulmonary hypertension, status post fall with vertebral fracture, cryptogenic cirrhosis, portal hypertension, recent lower extremity edema, cellulitis, severe renal failure secondary to severe aortic stenosis, history of esophagitis, gastritis, history of thrombocytopenia, the patient is doing good, but is still having back pain, does not want to go for surgery, wants to try natural measures. If she will not get better, then she will see neurosurgeon otherwise. Repeat labs. We will follow up. Kristin Rg MD MTDJeromy
[2017-11-28] MEDS: Insulin Reg-LOW-Coverage SC SCH ×4 (06:31→22:46)
[2017-11-28 07:12] LABS: BLOOD UREA NITROGEN 24 mg/dL (7-21); CALCIUM 8.4 mg/dL (8.4-10.5); GFR AFRICAN-AMERICAN > 60; GFR NON-AFRICAN AMERICAN > 60
--- NOTE | 2017-11-28 07:50 | CP.PCM.PN ---
Subjective - Date & Time of Evaluation Date of Evaluation: 11/28/17 Time of Evaluation: 07:00 - Subjective Subjective: Denies chest pain,denies shortness of breath, coughing intermittently, complaining of right side pain radiating from the back Reason for consultation:Continuity of care,,severe aortic stenosis, leg swelling , deconditioning Seen and examined by me and Dr. Guillermo Objective - Vital Signs/Intake and Output Vital Signs (last 24 hours): Temp Pulse Resp BP Pulse Ox 98.5 F 94 H 18 110/51 L 94 L 11/27/17 17:38 11/27/17 18:27 11/27/17 17:38 11/28/17 04:22 11/27/17 17:38 - Medications Medications: Current Medications Acetaminophen (Tylenol 325mg Tab) 650 mg PO Q4H PRN; Protocol PRN Reason: Pain, Mild (1-3) Last Admin: 11/26/17 14:26 Dose: 650 mg Albuterol/Ipratropium (Duoneb 3 Mg/0.5 Mg (3 Ml) Ud) 3 ml IH [id number] ALEXANDRA PRN Reason: Protocol Last Admin: 11/28/17 07:35 Dose: 3 ml Betamethasone/Clotrimazole (Lotrisone) 0 ml TOP BID ALEXANDRA PRN Reason: Protocol Last Admin: 11/27/17 17:51 Dose: 1 applic Calcium Carbonate (Oscal) 500 mg PO DAILY ALEXANDRA PRN Reason: Protocol Last Admin: 11/27/17 09:06 Dose: 500 mg Furosemide (Lasix) 40 mg IVP Q8 ALEXANDRA PRN Reason: Protocol Last Admin: 11/28/17 05:20 Dose: Not Given Insulin Human Regular (Humulin R Low) 0 units SC ACHS ALEXANDRA PRN Reason: Protocol Last Admin: 11/28/17 06:31 Dose: Not Given Ketorolac Tromethamine (Toradol) 15 mg IM Q8H PRN PRN Reason: Pain, severe (8-10) Stop: 12/02/17 15:00 Last Admin: 11/27/17 23:55 Dose: 15 mg Lidocaine (Lidoderm) 1 ea TD DAILY ALEXANDRA PRN Reason: Protocol Last Admin: 11/27/17 09:06 Dose: 1 ea Magnesium Hydroxide (Milk Of Magnesia) 30 ml PO DAILY PRN; Protocol PRN Reason: Constipation Metoprolol Tartrate (Lopressor) 12.5 mg PO 0800,1700 ALEXANDRA PRN Reason: Protocol Last Admin: 11/27/17 18:27 Dose: 12.5 mg Oxycodone/Acetaminophen (Percocet 5/325 Mg Tab) 1 tab PO BID ALEXANDRA Stop: 11/30/17 18:01 Last Admin: 11/28/17 04:24 Dose: 1 tab Promethazine HCl/Dextromethorphan (Phenergan Dm Syrup) 5 ml PO TID PRN; Protocol PRN Reason: Cough Last Admin: 11/25/17 04:05 Dose: 5 ml Spironolactone (Aldactone) 25 mg PO DIN ALEXANDRA PRN Reason: Protocol Last Admin: 11/27/17 17:51 Dose: 25 mg - Labs Labs: 11/28/17 06:15 - Constitutional Appears: No Acute Distress - Head Exam Head Exam: NORMAL INSPECTION - Eye Exam Eye Exam: Normal appearance - ENT Exam ENT Exam: Mucous Membranes Dry - Respiratory Exam Respiratory Exam: Decreased Breath Sounds, Rhonchi - Cardiovascular Exam Cardiovascular Exam: +S1, +S2 - GI/Abdominal Exam GI & Abdominal Exam: Soft, Normal Bowel Sounds - Extremities Exam Extremities Exam: Normal Capillary Refill Additional comments: 4+ leg swelling bilateral - Back Exam Additional comments: complaints of back pain, radiating to right side. denies chest pain - Neurological Exam Neurological Exam: Alert, Awake, Oriented x3 - Psychiatric Exam Psychiatric exam: Normal Affect, Normal Mood - Skin Skin Exam: Intact, Normal Color, Warm Assessment and Plan - Assessment and Plan (Free Text) Assessment: IMPRESSION: 77 year old with multiple admissions. History of severe aortic stenosis, refused TAVR in the past, coronary artery disease, post PTCA, cirrhosis, thrombocytopenia, cellulitis, history of CHF, hypertension,COPD. Plan: Physical therapy in progress Complaining of pain on the right side of chest radiating from back pain, will order chest x-ray to rule out pneumonia Cardiac status stable Nutritional support Continue current medications Continue current treatment Will follow up Plan and treatment discussed with Dr. Guillermo
--- NOTE | 2017-11-28 08:00 | PN ---
DATE: 11/27/2017 REASON FOR CONSULTATION AND FOLLOWUP: Continuity of care in the Transitional Care Unit, severe aortic stenosis, leg swelling, deconditioning of the body. SUBJECTIVE: The patient denies any chest pain, shortness of breath or any palpitation. PHYSICAL EXAMINATION GENERAL: Not in any apparent distress. The patient complained of both lower ribcage pain and it is tender. VITAL SIGNS: Temperature afebrile, heart rate 95, blood pressure 100/44. HEENT: PERRLA. Extraocular muscles intact. NECK: Supple. No carotid bruit or thyromegaly. CHEST: Clear to auscultation. HEART: S1 and S2 regular. ABDOMEN: Soft. EXTREMITIES: Clubbing and cyanosis negative. LABORATORY DATA: Blood workup as follows: CBC is not available. Chemistry shows sodium , potassium 4.1, chloride 102, carbon dioxide 30, anion gap of 8, BUN 20, creatinine 0.7. IMPRESSION: Severe aortic stenosis, deconditioning of the body, thrombocytopenia, neutropenia, cryptogenic cirrhosis, ascites. RECOMMENDATIONS: Continue rehab. Overall the patient's condition is critical. [facility] prognosis is guarded. Code status is DNR/DNI. The patient will get benefit of [facility] extended rehab care facility or supervisory treatment. Thank you, for providing us the opportunity in taking care of the patient, Maria D Sullivan. Pablo Guillermo MD
--- NOTE | 2017-11-28 08:37 | PN ---
DATE: 11/27/2017 SUBJECTIVE: The patient was seen and examined on 11/27/2017 and looking comfortable. No nausea, vomiting, diarrhea. No hematuria or hematochezia. No swelling of the legs. No chest pain. No palpitation. No headache. No dizziness. Cough is better. Still having back pain, but improving very slowly. The patient is getting physical therapy. Bowel movement is poor. PHYSICAL EXAMINATION: VITAL SIGNS: Temperature 98, heart rate 90, respiratory rate 18, blood pressure 120/40, pulse oximetry 98% on room air. HEENT: Head normocephalic, atraumatic. Eyes PERRLA. Extraocular muscles are intact. Conjunctivae are clear. Nose patent. Mucous membrane moist. NECK: Supple. No carotid bruit. No JVD or thyromegaly. CHEST: Bilaterally symmetrical. HEART: S1 and S2 positive. LUNGS: Clear to auscultation. ABDOMEN: Soft. Bowel sounds positive. No organomegaly. EXTREMITIES: No edema. No cyanosis. NEUROLOGICAL: The patient is awake and alert. Moving all 4 extremities. No focal deficit. MEDICATIONS: Aldactone, DuoNeb, insulin, Lasix, metoprolol, Lotrisone cream on the legs, morphine, Os-Cristo, Phenergan, Tylenol. LABORATORY DATA: We do not have recent labs today, but I reviewed old labs. Blood sugar is 179. ASSESSMENT AND PLAN: Ms. Sullivan is a 77-year-old lady with history of multiple falls and vertebral fracture, getting pain medication , kyphoplasty; now getting physical therapy; chronic obstructive lung disease; sleep apnea syndrome; cardiomyopathy; valvular heart disease; hypertension; pancytopenia; recurrent extremity edema and cellulitis; severe heart failure secondary to severe aortic stenosis , chronic obstructive pulmonary disease, asthma. Continue present treatment, pain management and physical therapy. Gastrointestinal and deep venous thrombosis. Repeat labs. We will follow up. Kristin Rg MD MTDD
[2017-11-28] MEDS: Lidocaine 5% Patch TD SCH (09:28)
[2017-11-28] MEDS: Clotrimazole/Betamethasone Lotion(30 ml) TOP SCH ×2 (09:28→17:20)
--- NOTE | 2017-11-28 10:43 | RAD ---
HISTORY: rule out pneumonia COMPARISON: 11/23/2017 TECHNIQUE: Chest PA and lateral FINDINGS: LUNGS: No active pulmonary disease. PLEURA: Small pleural effusions CARDIOVASCULAR: There is mild vascular congestion. The heart is normal in size OSSEOUS STRUCTURES: No significant abnormalities. VISUALIZED UPPER ABDOMEN: Normal. OTHER FINDINGS: None. IMPRESSION: Mild vascular congestion and small bilateral pleural effusions
[2017-11-29] MEDS: Albuterol-Ipratrop 3 mg / 0.5 (3 ml) UD IH SCH ×4 (03:00→21:40)
--- NOTE | 2017-11-29 04:08 | PN ---
DATE: 11/28/2017 PULMONARY PROGRESS NOTE REFERRING PHYSICIAN: Kristin Rg MD SUBJECTIVE: The patient is sitting up in the chair. Night was unremarkable. Feels better. Still have a vertebral pain. Cough is better. Shortness of breath is better. No nausea. No vomiting. Does have a leg swelling. OBJECTIVE: GENERAL: In no acute distress. VITAL SIGNS: Temperature is 98, heart rate is 76, respiratory rate is 20, blood pressure is 88/59 and pulse ox 97% on room air. HEENT: Moist mucous membrane. No ulcer or thrush noted. NECK: Supple. No JVD. LUNGS: Have a fair airflow with rhonchi. HEART: S1 and S2. ABDOMEN: Soft, nontender. No organomegaly. EXTREMITIES: Does have edema. NEUROLOGICAL: Awake and alert. Follow simple commands. MEDICATIONS: She is on Aldactone 25 mg daily, DuoNeb every 6 hours, insulin coverage, Lasix 40 mg every 8 hours, lidocaine patch to affected area, metoprolol tartrate 12.5 mg twice a day, Lotrisone to affected area, Os-Cristo 500 mg daily, Percocet 5/325 one tab every 12 hours p.r.n., Phenergan DM 5 mL three times a day p.r.n., Toradol 50 mg every 8 hours p.r.n., Tylenol on p.r.n. basis. LABORATORY DATA: Shows sodium 136, potassium 3.7, chloride 102, bicarbonate 28, BUN 24, creatinine 0.6. Glucose 106, phosphorous 3.3, magnesium is 1.9. IMPRESSION AND PLAN: Chronic obstructive lung disease, obstructive sleep apnea syndrome, cardiomyopathy, valvular heart disease, coronary artery disease, pulmonary hypertension, status post fall with vertebral fracture, cryptogenic cirrhosis, portal hypertension, lower extremity edema, cellulitis, severe heart failure with severe aortic stenosis, esophagitis, gastritis, thrombocytopenia. Pulmonary point of view, doing okay. Continue bronchodilator. Keep head at 45 degrees. Lidocaine patch at vertebral area. Fall precaution. Continue diuretics. May change Lasix 40 twice a day. Followup labs in the morning. Thank you and we will follow with you. Pablo Cantor MD
--- NOTE | 2017-11-29 06:33 | CP.PCM.PN ---
Subjective - Date & Time of Evaluation Date of Evaluation: 11/29/17 Time of Evaluation: 06:15 - Subjective Subjective: Sleeping but easily awaken, feels better, Denies chest pain,denies shortness of breath, Reason for consultation: Continuity of care,,severe aortic stenosis, leg swelling, COPD,deconditioning Seen and examined by me and Dr. Guillermo Objective - Vital Signs/Intake and Output Vital Signs (last 24 hours): Temp Pulse Resp BP Pulse Ox 97.2 F L 76 16 82/45 L 97 11/28/17 17:14 11/28/17 17:19 11/28/17 17:14 11/28/17 22:46 11/28/17 17:14 - Medications Medications: Current Medications Acetaminophen (Tylenol 325mg Tab) 650 mg PO Q4H PRN; Protocol PRN Reason: Pain, Mild (1-3) Last Admin: 11/29/17 03:39 Dose: 650 mg Albuterol/Ipratropium (Duoneb 3 Mg/0.5 Mg (3 Ml) Ud) 3 ml IH [id number] ALEXANDRA PRN Reason: Protocol Last Admin: 11/28/17 22:00 Dose: 3 ml Betamethasone/Clotrimazole (Lotrisone) 0 ml TOP BID ALEXANDRA PRN Reason: Protocol Last Admin: 11/28/17 17:20 Dose: 1 applic Calcium Carbonate (Oscal) 500 mg PO DAILY ALEXANDRA PRN Reason: Protocol Last Admin: 11/28/17 09:29 Dose: 500 mg Furosemide (Lasix) 40 mg IVP Q12 ALEXANDRA PRN Reason: Protocol Insulin Human Regular (Humulin R Low) 0 units SC ACHS ALEXANDRA PRN Reason: Protocol Last Admin: 11/28/17 22:46 Dose: Not Given Ketorolac Tromethamine (Toradol) 15 mg IM Q8H PRN PRN Reason: Pain, severe (8-10) Stop: 12/02/17 15:00 Last Admin: 11/27/17 23:55 Dose: 15 mg Lidocaine (Lidoderm) 1 ea TD DAILY ALEXANDRA PRN Reason: Protocol Last Admin: 11/28/17 09:28 Dose: 1 ea Magnesium Hydroxide (Milk Of Magnesia) 30 ml PO DAILY PRN; Protocol PRN Reason: Constipation Metoprolol Tartrate (Lopressor) 12.5 mg PO 0800,1700 ALEXANDRA PRN Reason: Protocol Last Admin: 11/28/17 17:19 Dose: 12.5 mg Oxycodone/Acetaminophen (Percocet 5/325 Mg Tab) 1 tab PO BID [facility] Stop: 11/30/17 18:01 Last Admin: 11/28/17 09:30 Dose: 1 tab Promethazine HCl/Dextromethorphan (Phenergan Dm Syrup) 5 ml PO TID PRN; Protocol PRN Reason: Cough Last Admin: 11/25/17 04:05 Dose: 5 ml Spironolactone (Aldactone) 25 mg PO DIN ALEXANDRA PRN Reason: Protocol Last Admin: 11/28/17 17:20 Dose: 25 mg - Labs Labs: 11/28/17 06:15 - Constitutional Appears: No Acute Distress - Head Exam Head Exam: NORMOCEPHALIC - Eye Exam Eye Exam: Normal appearance Pupil Exam: NORMAL ACCOMODATION - ENT Exam ENT Exam: Mucous Membranes Moist, Normal Exam - Respiratory Exam Respiratory Exam: Decreased Breath Sounds, Rhonchi - Cardiovascular Exam Cardiovascular Exam: +S1, +S2 Additional comments: No JVD - GI/Abdominal Exam GI & Abdominal Exam: Soft, Normal Bowel Sounds - Extremities Exam Extremities Exam: Full ROM, Normal Capillary Refill Additional comments: leg swelling, 3-4+ pedal edema - Back Exam Additional comments: Vertebral pain - Neurological Exam Neurological Exam: Alert, Awake, Oriented x3 - Psychiatric Exam Psychiatric exam: Normal Affect, Normal Mood - Skin Skin Exam: Dry, Intact, Normal Color, Warm Assessment and Plan - Assessment and Plan (Free Text) Assessment: IMPRESSION: 77 year old with multiple admissions. History of severe aortic stenosis, refused TAVR in the past, coronary artery disease, post PTCA, cirrhosis, thrombocytopenia, cellulitis, history of CHF, hypertension,COPD. Plan: Cardiac status stable Still has leg swelling, on Lasix 40 mg every 12 hours Physical therapy in progress Chest X ray yesterday normal result Still have vertebral pain, on Lidocaine patch, and PRN Toradol and Percocet Nutritional support On Lopressor 12.5 mg BID, Continue current treatment Will follow up Plan and treatment discussed with Dr. Guillermo
[2017-11-29] MEDS: Insulin Reg-LOW-Coverage SC SCH ×4 (06:40→21:28)
[2017-11-29 07:19] LABS: BLOOD UREA NITROGEN 26 mg/dL (7-21); CALCIUM 8.3 mg/dL (8.4-10.5); GFR AFRICAN-AMERICAN > 60; GFR NON-AFRICAN AMERICAN > 60
[2017-11-29] MEDS: Clotrimazole/Betamethasone Lotion(30 ml) TOP SCH ×2 (09:39→17:07)
[2017-11-29] MEDS: Lidocaine 5% Patch TD SCH (09:39)
[2017-11-29] MEDS: Oxycodone/Acetaminophen 5/325 mg Tab PO SCH ×2 (14:01→17:10)
--- NOTE | 2017-11-29 17:24 | PN ---
DATE: 11/29/2017 PULMONARY PROGRESS NOTE REFERRING PHYSICIAN: Kristin Rg MD SUBJECTIVE: The patient is sitting up in a chair. Night was unremarkable. Feels okay. No cough, no sputum production, gets short of breath with exertion. Still has a lot of vertebral pain. No nausea, no vomiting. Has leg swelling. PHYSICAL EXAMINATION: GENERAL: In no acute distress. VITAL SIGNS: Temperature is 98, heart rate is 80, respiratory rate is 20, blood pressure is 97/34. HEENT: Moist mucous membrane. Crowded airway. NECK: Supple. No JVD. LUNGS: Has a few crackles. HEART: S1 and S2 with murmur. ABDOMEN: Soft, nontender. No organomegaly. EXTREMITIES: Does have edema. NEUROLOGICAL: Awake and alert. Follows simple commands. MEDICATIONS: She is on Aldactone 25 mg daily, DuoNeb every 6 hours round the clock, Lasix 40 mg IV twice a day, lidocaine patch to affected area, metoprolol tartrate 12.5 mg twice a day, Lotrisone to affected area, calcium carbonate 1 tablet daily, Percocet 5/325 one tab every 12 hours and also on Phenergan With Codeine p.r.n. basis, Toradol 50 mg every 8 hours p.r.n., Tylenol p.r.n. LABORATORY DATA: Shows sodium 135, potassium 3.9, chloride 102, bicarbonate 28, BUN 26, creatinine 0.7, glucose is 97, calcium 8.3, magnesium is 2. Chest x-ray yesterday showed congestion and small pleural effusion. IMPRESSION AND PLAN: Cardiomyopathy with severe aortic stenosis causing congestive heart failure, requiring Demadex, also has chronic obstructive lung disease, obstructive sleep apnea syndrome, coronary artery disease, pulmonary hypertension, status post vertebral fracture, frequent falls, cryptogenic cirrhosis, portal hypertension, lower extremity edema, esophageal and gastric erosions, thrombocytopenia. Case discussed with the nursing staff, . If we do not give her diuretics, she goes to pulmonary edema and if we do give diuretics, she become hypotensive. So as long as she is asymptomatic and pressure is between 80-90, we can still give diuretics. Her blood pressure drop below 80 or she become asymptomatic with hypotension, we can hold off the diuretics. Overall poor prognosis, fall precaution. Continue bronchodilators. Being followed by Cardiology. Continue to have pain on the vertebra, continue supportive care therapy, pain management. Thank you and we will follow with you. Pablo Cantor MD
[2017-11-30] MEDS: Albuterol-Ipratrop 3 mg / 0.5 (3 ml) UD IH SCH ×4 (01:18→20:08)
--- NOTE | 2017-11-30 06:57 | CP.PCM.PN ---
Subjective - Date & Time of Evaluation Date of Evaluation: 11/30/17 Time of Evaluation: 06:30 - Subjective Subjective: Lying in bed, Denies chest pain,denies shortness of breath, feels okay Reason for consult and follow up: Continuity of care in TCU, Deconditioning, History of severe aortic stenosis, refused TAVR in the past, coronary artery disease, post PTCA, cirrhosis, thrombocytopenia, cellulitis, history of CHF, hypertension,COPD. Seen and examined by me and Dr. Guillermo Objective - Vital Signs/Intake and Output Vital Signs (last 24 hours): Temp Pulse Resp BP Pulse Ox 98.4 F 81 20 99/41 L 96 11/29/17 16:00 11/29/17 16:00 11/29/17 16:00 11/30/17 05:31 11/29/17 16:00 - Medications Medications: Current Medications Acetaminophen (Tylenol 325mg Tab) 650 mg PO Q4H PRN; Protocol PRN Reason: Pain, Mild (1-3) Last Admin: 11/29/17 03:39 Dose: 650 mg Albuterol/Ipratropium (Duoneb 3 Mg/0.5 Mg (3 Ml) Ud) 3 ml IH [id number] ALEXANDRA PRN Reason: Protocol Last Admin: 11/30/17 01:18 Dose: Not Given Betamethasone/Clotrimazole (Lotrisone) 0 ml TOP BID ALEXANDRA PRN Reason: Protocol Last Admin: 11/29/17 17:07 Dose: 1 applic Calcium Carbonate (Oscal) 500 mg PO DAILY ALEXANDRA PRN Reason: Protocol Last Admin: 11/29/17 09:39 Dose: 500 mg Furosemide (Lasix) 40 mg IVP 0600,1800 ALEXANDRA PRN Reason: Protocol Last Admin: 11/30/17 05:31 Dose: Not Given Insulin Human Regular (Humulin R Low) 0 units SC ACHS ALEXANDRA PRN Reason: Protocol Last Admin: 11/29/17 21:28 Dose: Not Given Ketorolac Tromethamine (Toradol) 15 mg IM Q8H PRN PRN Reason: Pain, severe (8-10) Stop: 12/02/17 15:00 Last Admin: 11/30/17 02:28 Dose: 15 mg Lidocaine (Lidoderm) 1 ea TD DAILY ALEXANDRA PRN Reason: Protocol Last Admin: 11/29/17 09:39 Dose: 1 ea Magnesium Hydroxide (Milk Of Magnesia) 30 ml PO DAILY PRN; Protocol PRN Reason: Constipation Metoprolol Tartrate (Lopressor) 12.5 mg PO 0800,1700 ALEXANDRA PRN Reason: Protocol Last Admin: 11/29/17 17:07 Dose: Not Given Oxycodone/Acetaminophen (Percocet 5/325 Mg Tab) 1 tab PO BID ALEXANDRA Stop: 11/30/17 18:01 Last Admin: 11/29/17 17:10 Dose: 1 tab Promethazine HCl/Dextromethorphan (Phenergan Dm Syrup) 5 ml PO TID PRN; Protocol PRN Reason: Cough Last Admin: 11/25/17 04:05 Dose: 5 ml Spironolactone (Aldactone) 25 mg PO DIN ALEXANDRA PRN Reason: Protocol Last Admin: 11/29/17 17:10 Dose: 25 mg - Labs Labs: 11/29/17 06:50 - Constitutional Appears: No Acute Distress - Eye Exam Pupil Exam: NORMAL ACCOMODATION - ENT Exam ENT Exam: Mucous Membranes Moist - Respiratory Exam Respiratory Exam: Decreased Breath Sounds, Clear to Ausculation Bilateral, NORMAL BREATHING PATTERN - Cardiovascular Exam Cardiovascular Exam: +S1, +S2 Additional comments: No JVD, leg swelling 2-3 + pedal edema - Extremities Exam Extremities Exam: Normal Capillary Refill - Neurological Exam Neurological Exam: Alert, Awake, Oriented x3 - Psychiatric Exam Psychiatric exam: Normal Affect, Normal Mood - Skin Skin Exam: Intact, Normal Color, Warm Assessment and Plan - Assessment and Plan (Free Text) Assessment: IMPRESSION: 77 year old with multiple admissions. History of severe aortic stenosis, refused TAVR in the past, coronary artery disease, post PTCA, cirrhosis, thrombocytopenia, cellulitis, history of CHF, hypertension,COPD. Plan: Moderate to severe vertebral pain, PRN Oxycodone given,Lidocaine patch Comfortable able to sleep 1 pillow Cardiac status stable Still has leg swelling, on Lasix 40 mg every 12 hours Physical therapy in progress Nutritional support On Lopressor 12.5 mg BID, Continue current treatment Will follow up Plan and treatment discussed with Dr. Guillermo
[2017-11-30] MEDS: Insulin Reg-LOW-Coverage SC SCH ×4 (07:09→21:53)
[2017-11-30] MEDS: Lidocaine 5% Patch TD SCH (09:49)
[2017-11-30] MEDS: Promethazine DM 6.25 mg-15 mg/5 ml Syrup PO PRN ×2 (09:51→17:25)
[2017-11-30] MEDS: Oxycodone/Acetaminophen 5/325 mg Tab PO SCH ×2 (09:55→17:24)
[2017-11-30] MEDS: Clotrimazole/Betamethasone Lotion(30 ml) TOP SCH ×2 (10:36→17:24)
--- NOTE | 2017-11-30 12:06 | PN ---
DATE: 11/29/2017 SUBJECTIVE: Patient was seen and examined on the bedside on 11/29/2017, sitting on the chair, still complaining about back pain. Night was unremarkable. Cough is better. Shortness of breath is better. No sputum production, but getting dyspnea on exertion. No nausea or vomiting. No fever. No chills. PHYSICAL EXAMINATION: VITAL SIGNS: Temperature 98, heart rate 80, respiratory rate 20, blood pressure 97/34. HEENT: Head: Normocephalic, atraumatic. Eyes: PERRLA. Extraocular muscles intact. Conjunctivae clear. Nose patent. Mucous membranes moist. NECK: Supple. No carotid bruit. No JVD or thyromegaly. CHEST: Bilaterally symmetrical. HEART: S1 and S2 positive. LUNGS: Clear to auscultation. ABDOMEN: Soft. Bowel sounds present. No organomegaly. EXTREMITIES: No edema. No cyanosis. NEUROLOGIC: Patient is awake, alert. Moving all 4 extremities. No focal deficit. MEDICATIONS: Aldactone, DuoNeb, Lasix, lidocaine, metoprolol, Lotrisone, Percocet, Phenergan, and Toradol. LABORATORY DATA: Sodium 135, potassium 3.9, BUN 26, creatinine 0.7, glucose 97, magnesium 2. Chest x-ray shows congestion and small pleural effusion. ASSESSMENT AND PLAN: Ms. Maria D Sullivan is a 77-year-old lady with pleural effusion; cardiomyopathy with severe aortic stenosis causing congestive heart failure, requiring Demadex; chronic obstructive pulmonary disease; obstructive sleep apnea syndrome; coronary artery disease, status post cardiac stenting; pulmonary hypertension; vertebral fracture. Patient was offered kyphoplasty, but she chose physical therapy. Frequent falls, cryptogenic cirrhosis, portal hypertension, pancytopenia, history of systemic inflammatory response syndrome, stasis dermatitis of the lower extremities. Discussion done with the patient and the patient's nurse. She has concern because blood pressure is low and patient is on diuretics. Patient with pulmonary edema and we do give diuretics, so become hypotensive. So as long as she is asymptomatic and progressive, had pressure between 80-90, we can still give diuretics as per Dr. Cantor. The blood pressure drop below 80 and become asymptomatic with hypotension, we can hold the diuretics. Overall, prognosis is poor. Patient knows about that. Patient is do not resuscitate and do not intubate. Fall precautions. Continue physical therapy. Repeat labs. We will follow up. Kristin Rg MD
--- NOTE | 2017-11-30 17:03 | PN ---
DATE: 11/28/2017 SUBJECTIVE: The patient is a 77-year-old female. The patient was seen and examined at the bedside, looking comfortable. No nausea, vomiting, or diarrhea. No hematuria or hematochezia. No swelling of the legs. No chest pain. No palpitation. No headache or dizziness. Still having a vertebral pain. Cough is better. PHYSICAL EXAMINATION: VITAL SIGNS: Temperature 98, heart rate 76, respiratory rate 20, blood pressure 88/59, pulse oximetry 97% on room air. HEENT: Head normocephalic, atraumatic. Eyes: PERRLA. Extraocular muscles intact. Conjunctivae clear. Nose patent. Mucous membrane moist. NECK: Supple. No carotid bruit. No JVD or thyromegaly. CHEST: Bilaterally symmetrical. HEART: S1 and S2 positive. LUNGS: Clear to auscultation. ABDOMEN: Soft. Bowel sounds present. No organomegaly. EXTREMITIES: No edema. No cyanosis. NEUROLOGICAL: The patient is awake and alert. Moving all four extremities. No focal deficits. MEDICATIONS: Aldactone, DuoNeb, lidocaine, metoprolol, Percocet, Lotrisone, Phenergan, Toradol. LABORATORY DATA: Sodium 136, potassium 3.7. BUN 24, creatinine 0.6. Glucose 106. Phosphorous 3.3. ASSESSMENT: Ms. Maria D Sullivan is a 77-year-old lady with chronic obstructive lung disease; obstructive sleep apnea syndrome; cardiomyopathy; valvular heart disease; coronary artery disease; pulmonary hypertension; status post fall; vertebral fracture, kyphoplasty offered, but want a conservative treatment, physical therapy and medication; cryptogenic cirrhosis; portal hypertension; pancytopenia; lower extremity edema; severe heart failure with severe aortic stenosis; esophagitis; gastritis. PLAN: Continue present treatment, physical therapy, and pain management. We will follow up. Kristin Rg MD
[2017-12-01] MEDS: Albuterol-Ipratrop 3 mg / 0.5 (3 ml) UD IH SCH ×3 (01:56→13:23)
--- NOTE | 2017-12-01 04:17 | PN ---
DATE: 11/30/2017 PULMONARY PROGRESS NOTE REFERRING PHYSICIAN; Kristin Rg MD SUBJECTIVE: She is out of bed to chair. Night was unremarkable. Doing well in therapy. Still has some vertebral pain. No nausea, no vomiting, no diarrhea. Still has leg swelling. OBJECTIVE: GENERAL: In no acute distress. VITAL SIGNS: Temperature is 98, heart rate is 78, respiratory rate is 20, blood pressure 114/78, pulse ox on nasal cannula. HEENT: Small oral cavity. Crowded airway. NECK: Supple. No JVD. LUNGS: Have a fair airflow with rhonchi. HEART: S1 and S2 with murmur. ABDOMEN: Soft, nontender, no organomegaly. EXTREMITIES: Does have edema. NEUROLOGIC: Awake, alert, follows simple command. MEDICATIONS: She is on Aldactone 25 mg twice a day, DuoNeb every six hour round the clock, Lasix 40 mg IV twice a day, lidocaine patch daily, metoprolol tartrate 12.5 mg twice a day, Lotrisone at affected area twice a day, calcium carbonate 500mg daily, Phenergan DM 5 mL every 8 hour p.r.n., Toradol 50 mg every 6 hour p.r.n., Tylenol p.r.n. basis. LABORATORY DATA: Shows glucose of 125. IMPRESSION AND PLAN: Cardiomyopathy with severe aortic stenosis, causing severe congestive heart failure, requiring high dose of Lasix, chronic obstructive lung disease, obstructive sleep apnea syndrome, coronary artery disease, pulmonary hypertension, vertebral fracture secondary to fall, cirrhotic liver, portal hypertension, lower extremity edema, esophageal and gastric erosions, thrombocytopenia, activities of daily living dysfunction. Pulmonary point of view, doing okay. She also has sleep apnea syndrome, but refused CPAP use. Continue bronchodilator. Keep head at 45 degrees. Aspiration precaution, fall precaution, pain management. Thank you and we will follow with you. Pablo Cantor MD
[2017-12-01 06:00] VITALS: RESP 18; O2SAT 95
--- NOTE | 2017-12-01 06:07 | CP.PCM.PN ---
Subjective - Date & Time of Evaluation Date of Evaluation: 12/01/17 Time of Evaluation: 07:00 - Subjective Subjective: I feel okay, I am ready to go home, denies chest pain, denieas shortness of breath, tolerable back pain Reason for consult and follow up: Continuity of care in TCU, Deconditioning, History of severe aortic stenosis, refused TAVR in the past, coronary artery disease, post PTCA, cirrhosis, thrombocytopenia, cellulitis, history of CHF, hypertension,COPD. Seen and examined by me and Dr. Guillermo Objective - Vital Signs/Intake and Output Vital Signs (last 24 hours): Temp Pulse Resp BP Pulse Ox 97.8 F 68 18 82/40 L 95 12/01/17 06:00 12/01/17 06:00 12/01/17 06:00 12/01/17 06:00 12/01/17 06:00 - Medications Medications: Current Medications Acetaminophen (Tylenol 325mg Tab) 650 mg PO Q4H PRN; Protocol PRN Reason: Pain, Mild (1-3) Last Admin: 11/29/17 03:39 Dose: 650 mg Albuterol/Ipratropium (Duoneb 3 Mg/0.5 Mg (3 Ml) Ud) 3 ml IH [id number] ALEXANDRA PRN Reason: Protocol Last Admin: 12/01/17 01:56 Dose: 3 ml Betamethasone/Clotrimazole (Lotrisone) 0 ml TOP BID ALEXANDRA PRN Reason: Protocol Last Admin: 11/30/17 17:24 Dose: 1 applic Calcium Carbonate (Oscal) 500 mg PO DAILY ALEXANDRA PRN Reason: Protocol Last Admin: 11/30/17 09:52 Dose: 500 mg Furosemide (Lasix) 40 mg IVP 0600,1800 ALEXANDRA PRN Reason: Protocol Last Admin: 11/30/17 17:21 Dose: 40 mg Insulin Human Regular (Humulin R Low) 0 units SC ACHS ALEXANDRA PRN Reason: Protocol Last Admin: 11/30/17 21:53 Dose: Not Given Ketorolac Tromethamine (Toradol) 15 mg IM Q6H PRN PRN Reason: Pain, severe (8-10) Stop: 12/02/17 15:00 Last Admin: 11/30/17 21:58 Dose: 15 mg Lidocaine (Lidoderm) 1 ea TD DAILY ALEXANDRA PRN Reason: Protocol Last Admin: 11/30/17 09:49 Dose: 1 ea Magnesium Hydroxide (Milk Of Magnesia) 30 ml PO DAILY PRN; Protocol PRN Reason: Constipation Metoprolol Tartrate (Lopressor) 12.5 mg PO 0800,1700 ALEXANDRA PRN Reason: Protocol Last Admin: 11/30/17 17:23 Dose: 12.5 mg Promethazine HCl/Dextromethorphan (Phenergan Dm Syrup) 5 ml PO TID PRN; Protocol PRN Reason: Cough Last Admin: 11/30/17 17:25 Dose: 5 ml Spironolactone (Aldactone) 25 mg PO DIN ALEXANDRA PRN Reason: Protocol Last Admin: 11/30/17 17:20 Dose: 25 mg - Labs Labs: 11/29/17 06:50 - Constitutional Appears: No Acute Distress - Eye Exam Pupil Exam: NORMAL ACCOMODATION - ENT Exam ENT Exam: Mucous Membranes Moist - Neck Exam Neck Exam: Normal Inspection - Respiratory Exam Respiratory Exam: Clear to Ausculation Bilateral, NORMAL BREATHING PATTERN - Cardiovascular Exam Cardiovascular Exam: +S1, +S2 - GI/Abdominal Exam GI & Abdominal Exam: Soft, Normal Bowel Sounds - Extremities Exam Extremities Exam: Normal Capillary Refill Additional comments: 2-3+ pedal edema - Neurological Exam Neurological Exam: Alert, Awake, Oriented x3 - Psychiatric Exam Psychiatric exam: Normal Affect, Normal Mood - Skin Skin Exam: Intact, Normal Color, Warm Assessment and Plan - Assessment and Plan (Free Text) Assessment: IMPRESSION: 77 year old with multiple admissions. History of severe aortic stenosis, refused TAVR in the past, coronary artery disease, post PTCA, cirrhosis, thrombocytopenia, cellulitis, history of CHF, hypertension,COPD. Plan: Systolic Blood pressure ranges from 80's to 90's, asymptomatic Still has leg swelling, Will change lasix from IV to oral Without lasix, she easily goes to heart failure Physical therapy in progress Nutritional support On Lopressor 12.5 mg BID, Continue current treatment Moderate to severe vertebral pain, PRN Oxycodone given,Lidocaine patch Possible discharge today Follow up in the office 1-2 weeks Will follow up Plan and treatment discussed with Dr. Guillermo
[2017-12-01 07:19] LABS: HEMOGLOBIN 8.5 g/dL (12.0-16.0); MEAN CELL VOLUME 87.7 fl (80.0-105.0); MEAN CORPUSCULAR HEMOGLOBIN 27.5 pg (25.0-35.0); MEAN CORPUSCULAR HGB CONC 31.4 g/dl (31.0-37.0); MEAN PLATELET VOLUME 9.4 fl (7.0-11.0); RBC 3.09 10^6/uL (3.5-6.1); RED CELL DISTRIBUTION WIDTH 18.1 % (11.5-14.5)
[2017-12-01] MEDS: Insulin Reg-LOW-Coverage SC SCH ×2 (07:38→12:22)
[2017-12-01 07:40] LABS: BLOOD UREA NITROGEN 29 mg/dL (7-21); CALCIUM 8.4 mg/dL (8.4-10.5); GFR AFRICAN-AMERICAN > 60; GFR NON-AFRICAN AMERICAN > 60
[2017-12-01 07:42] LABS: WHITE BLOOD COUNT 2.6 10^3/ul (4.5-11.0)
--- NOTE | 2017-12-01 07:42 | PN ---
DATE: 12/01/2017 The patient is a 77-year-old female. SUBJECTIVE: The patient is seen and examined on the bedside. Looking comfortable. Sitting on the chair. Coughing is better. Shortness of breath is better. Still having back pain. No nausea, vomiting, or diarrhea. No hematuria or hematochezia. No swelling of the leg. No chest pain. No palpitation. No headache. No dizziness. PHYSICAL EXAMINATION: VITAL SIGNS: Temperature 97.1, pulse 78, blood pressure 114/78, respiratory rate 16. HEENT: Head normocephalic, atraumatic. Eyes, PERRLA. Extraocular muscles are intact. Conjunctivae clear. Nose patent. NECK: Supple. No carotid bruit. No JVD or thyromegaly. CHEST: Bilaterally symmetrical. HEART: S1, S2 positive. LUNGS: Clear to auscultation. ABDOMEN: Soft. Bowel sounds present. No organomegaly. EXTREMITIES: No edema. No cyanosis. NEUROLOGIC: Patient is awake, alert. Moving all four extremities. No focal deficit. MEDICATIONS: Aldactone, DuoNeb, insulin, Lasix, Lidoderm, Lopressor, Lotrisone, milk of magnesia, Os-Cristo, Phenergan, Toradol and Tylenol. LABORATORY DATA: Sodium 135, potassium 3.9, BUN 23, creatinine 0.7, glucose 132 and calcium 8.3. ASSESSMENT AND PLAN: a 77-year-old lady with multiple medical problems and has chronic obstructive pulmonary disease, asthma, coronary artery disease, congestive heart failure, stasis dermatitis of the legs, cardiomyopathy with severe aortic stenosis causing congestive heart failure, obstructive sleep apnea syndrome, pulmonary hypertension, status post vertebral fracture, frequent falls, cryptogenic cirrhosis, portal hypertension and esophageal and gastric erosions. Discussion done with the patient. Patient is getting physical therapy, getting pain management, improving, but very slowly. Again, I discussed with her options of surgery, kyphoplasty by Dr. Praveen Augustine, but patient refused, she just wants to do noninvasive treatment. We will follow up. Kristin Rg MD ARACELI
[2017-12-01] MEDS: Lidocaine 5% Patch TD SCH (09:40)
[2017-12-01] MEDS: Clotrimazole/Betamethasone Lotion(30 ml) TOP SCH (09:40)
[2017-12-01] MEDS: Promethazine DM 6.25 mg-15 mg/5 ml Syrup PO PRN (09:41)
[2017-12-01 09:54] VITALS: BP 97/36
[2017-12-01 12:24] VITALS: PULSE 64; TEMP 98.6
--- NOTE | 2017-12-01 17:25 | PN ---
DATE: 12/01/2017 PULMONARY PROGRESS NOTE REFERRING PHYSICIAN: Kristin Rg MD SUBJECTIVE: The patient is sitting up in the chair. Night was unremarkable. Being discharged home today. Feels okay. No headache, no rhinitis. No cough. No nausea, no vomiting, no diarrhea. Still has some trace leg swelling. OBJECTIVE: GENERAL: No acute distress. VITAL SIGNS: Temperature is 98, heart rate is 64, respiratory rate is 18, blood pressure 97/36, pulse ox 95% on room air. HEENT: Moist mucous membranes. Crowded airway. NECK: Supple. No JVD. LUNGS: Have diffused scattered rhonchi. HEART: S1 and S2 with murmur. ABDOMEN: Soft, nontender. No organomegaly. EXTREMITIES: Has edema. NEUROLOGIC: Awake and follows simple commands. MEDICATIONS: Reviewed and noted. No new changes in medication reported since yesterday. LABORATORY DATA: Shows hemoglobin 8.5, hematocrit 27.1, WBC 2.6, platelet is 100. Sodium 136, potassium 4.2, chloride 102, bicarbonate 29, BUN 29, creatinine 0.8, glucose 134, calcium is 8.4. IMPRESSION AND PLAN: Cardiomyopathy with severe aortic stenosis causing severe congestive heart failure requiring high dose of Lasix, chronic obstructive lung disease, obstructive sleep apnea syndrome, coronary artery disease, pulmonary hypertension, vertebral fracture, history of fall, cirrhotic liver, portal hypertension, lower extremity edema, esophageal and gastric erosion, thrombocytopenia, leukopenia, pulmonary point of view, she is doing well, may discharged home with inhaled bronchodilator, diuretics, fall precaution, high risk for cardio, pulmonary complications specially with severe aortic stenosis. She refused any intervention. Pablo Cantor MD
== END 2017-12-01 15:16 | disposition home health service (06) | DRG 560 ==
LOC: TRCU 20:07
PROVIDERS: ADMIT Internal Medicine; ATTEND Internal Medicine
PROC: F07Z9FZ Gait Training/Functional Ambulation Treatment using Assistive, Adaptive, Supportive or Protective Equipment (ICD-10-PCS; principal; 2017-11-26)
PROC: F07Z8FZ Transfer Training Treatment using Assistive, Adaptive, Supportive or Protective Equipment (ICD-10-PCS; 2017-11-26)
PROC: F07L6ZZ Therapeutic Exercise Treatment of Musculoskeletal System - Lower Back / Lower Extremity (ICD-10-PCS; 2017-11-26)
PROC: F08Z2FZ Grooming/Personal Hygiene Treatment using Assistive, Adaptive, Supportive or Protective Equipment (ICD-10-PCS; 2017-11-26)
PROC: F08Z1FZ Dressing Techniques Treatment using Assistive, Adaptive, Supportive or Protective Equipment (ICD-10-PCS; 2017-11-27)
DX: S32.019D Unspecified fracture of first lumbar vertebra, subsequent encounter for fracture with routine healing (principal); I42.9 Cardiomyopathy, unspecified; K76.6 Portal hypertension; D61.818 Other pancytopenia; L03.90 Cellulitis, unspecified; E46 Unspecified protein-calorie malnutrition; I35.0 Nonrheumatic aortic (valve) stenosis; K74.69 Other cirrhosis of liver; I11.0 Hypertensive heart disease with heart failure; I50.9 Heart failure, unspecified; I25.10 Atherosclerotic heart disease of native coronary artery without angina pectoris; I27.20 Pulmonary hypertension, unspecified; G47.33 Obstructive sleep apnea (adult) (pediatric); Z66 Do not resuscitate; K29.70 Gastritis, unspecified, without bleeding; K20.9 Esophagitis, unspecified; J44.9 Chronic obstructive pulmonary disease, unspecified; I87.2 Venous insufficiency (chronic) (peripheral); R29.6 Repeated falls; W19.XXXD Unspecified fall, subsequent encounter

== ENCOUNTER 2017-12-29 14:59 | Emergency (ER) | payer MEDICARE ==
[2017-12-29 15:01] VITALS: PULSE 103; BMI 26.8
[2017-12-29 15:08] VITALS: RESP 18
[2017-12-29] MEDS ORDERED: Oxymetazoline 0.05% Nasal Spray (30 ml) NS STA (15:44)
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
[2017-12-29 16:34] VITALS: BP 121/58
[2017-12-29 17:08] VITALS: PULSE 79; TEMP 98.3; O2SAT 97
== END 2017-12-29 17:21 | disposition home or self-care (01) ==
LOC: ED 14:59
DX: R04.0 Epistaxis (principal); E11.9 Type 2 diabetes mellitus without complications; D69.6 Thrombocytopenia, unspecified; I50.9 Heart failure, unspecified; I10 Essential (primary) hypertension

== ENCOUNTER 2018-01-06 12:59 | Emergency (ER) | payer MEDICARE ==
[2018-01-06 13:00] VITALS: PULSE 103; BMI 25.5
[2018-01-06 13:10] VITALS: RESP 18
[2018-01-06] MEDS ORDERED: Amoxicillin-Clav 875-125 mg Tab PO STA (13:21)
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
[2018-01-06 15:13] VITALS: O2SAT 97
[2018-01-06 15:55] VITALS: BP 139/67; PULSE 82; TEMP 98.2
== END 2018-01-06 15:53 | disposition home or self-care (01) ==
LOC: ED 12:59
DX: R04.0 Epistaxis (principal)

== ENCOUNTER 2018-05-21 15:27 | Emergency (ER) | payer MEDICARE ==
[2018-05-21 15:27] VITALS: PULSE 103; BMI 25.5
[2018-05-21 15:51] VITALS: RESP 18; TEMP 98.4; O2SAT 99
[2018-05-21] MEDS ORDERED: Oxymetazoline 0.05% Nasal Spray (30 ml) NS STA (15:56)
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
[2018-05-21 17:24] VITALS: BP 137/64; PULSE 79
== END 2018-05-21 17:38 | disposition home or self-care (01) ==
LOC: ED 15:27
DX: R04.0 Epistaxis (principal)

== ENCOUNTER 2018-07-19 18:08 | Inpatient (IN) | payer MEDICARE ==
[2018-07-19 18:09] VITALS: PULSE 103
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
[2018-07-19] MEDS ORDERED: Clindamycin in D5W 300 MG/50 ML BAG IV STA (21:11)
[2018-07-19 21:15] LABS: VENOUS BLOOD GAS PO2 142 mm/Hg (30-55); VENOUS BLOOD PH 7.41 (7.32-7.43)
[2018-07-19 21:20] LABS: BASO # 0.05 K/mm3 (0.0-2.0); BASO % 1.3 % (0.0-3.0); EOS # 0.3 (0.0-0.7); EOS % 8.4 % (1.5-5.0); GRAN # 2.03 (1.4-6.5); GRAN % 52.9 % (50.0-68.0); HEMOGLOBIN 12.1 g/dL (12.0-16.0); LYMPH % 27.2 % (22.0-35.0); MEAN CELL VOLUME 94.3 fl (80.0-105.0); MEAN CORPUSCULAR HEMOGLOBIN 31.3 pg (25.0-35.0); MEAN CORPUSCULAR HGB CONC 33.2 g/dl (31.0-37.0); MEAN PLATELET VOLUME 10.5 fl (7.0-11.0); MONO # 0.4 (0.1-0.6); MONO % 10.2 % (1.0-6.0); RBC 3.87 10^6/uL (3.5-6.1); RED CELL DISTRIBUTION WIDTH 15.7 % (11.5-14.5); WHITE BLOOD COUNT 3.8 10^3/uL (4.5-11.0)
[2018-07-19 21:25] LABS: ALT/SGPT 31 U/L (7-56); AST/SGOT 45 U/L (14-36); BLOOD UREA NITROGEN 23 mg/dL (7-21); CALCIUM 9.6 mg/dL (8.4-10.5); GFR NON-AFRICAN AMERICAN > 60
[2018-07-19 21:46] LABS: B-TYPE NATRIURETIC PEPTIDE 948 pg/mL (0-450); TROPONIN I 0.04 ng/mL
--- NOTE | 2018-07-19 22:04 | ED PDOC ---
Physical Exam Vital Signs Reviewed: Yes Vital Signs Temp Pulse Resp BP Pulse Ox 07/19/18 18:53 98 F 97 H 16 140/61 98 Temperature: Afebrile Blood Pressure: Normal Pulse: Tachycardic Respiratory Rate: Normal Appearance: Positive for: Well-Appearing, Non-Toxic, Comfortable Pain Distress: None Mental Status: Positive for: Alert and Oriented X 3 Medical Decision Making ED Course and Treatment: 07/19/18 21:50 Patient endorsed to me by Dr. Renee pending admission. 07/19/18 22:[address] Rg said she will admit with consultation from Doctors Pablo (cardiology), Sakshi (Pulmonology), and Emmanuel (infectious disease). - Lab Interpretations Lab Results: 07/19/18 21:00 07/19/18 21:00 Lab Results 07/19/18 21:00: Sodium 137, Chloride 104, Potassium 4.0, Carbon Dioxide 27, Anion Gap 10, BUN 23 H, Creatinine 0.8, Est GFR ( Amer) > 60, Est GFR (Non-Af Amer) > 60, Random Glucose 91, Calcium 9.6, Total Bilirubin 3.0 H, AST 45 H D, ALT 31, Alkaline Phosphatase 80, Troponin I 0.04 D, NT-Pro-B Natriuret Pep 948 H, Total Protein 6.0, Albumin 3.0, Globulin 3.0, Albumin/Globulin Ratio 1.0 L 07/19/18 21:00: pO2 142 H, VBG pH 7.41, VBG pCO2 48.0, VBG HCO3 30.4 H, VBG Total CO2 31.9 H, VBG O2 Sat (Calc) 100.0 H, VBG Base Excess 5.0 H, VBG Potassium 4.0, Sodium 139.0, Chloride 106.0, Glucose 89, Lactate 1.4, FiO2 21.0, Venous Blood Potassium 4.0 07/19/18 21:00: WBC 3.8 L, RBC 3.87, Hgb 12.1 D, Hct 36.5, MCV 94.3 D, MCH 31.3, MCHC 33.2, RDW 15.7 H, Plt Count 84 L, MPV 10.5, Gran % 52.9, Lymph % (Auto) 27.2, Whitley % (Auto) 10.2 H, Eos % (Auto) 8.4 H, Baso % (Auto) 1.3, Gran # 2.03, Lymph # (Auto) 1.0 L, Whitley # (Auto) 0.4, Eos # (Auto) 0.3, Baso # (Auto) 0.05 - RAD Interpretation Radiology Orders: 07/19/18 19:10 CHEST ONE VIEW [RAD] Stat DUPLEX LOWER EXTRM VEIN BILAT [US] Stat - Medication Orders Current Medication Orders: Clindamycin Phosphate (Clindamycin 300 Mg/50 Ml-D5w) 300 mg in 50 mls @ 50 mls/hr IV STAT STA; Protocol Stop: 07/19/18 22:10 Discontinued Medications Furosemide (Lasix) 80 mg IVP STAT STA Stop: 07/19/18 21:08 Spironolactone (Aldactone) 12.5 mg PO BID ALEXANDRA Spironolactone (Aldactone) 12.5 mg PO ONCE ONE Stop: 07/19/18 21:11 - Scribe Statement The provider has reviewed the documentation as recorded by the Zach Leyva Provider Scribe Attestation: All medical record entries made by the Zach were at my direction and perso anamika dictated by me. I have reviewed the chart and agree that the record accurately reflects my personal performance of the history, physical exam, medical decision making, and the department course for this patient. I have also personally directed, reviewed, and agree with the discharge instructions and disposition. Disposition/Present on Arrival - Present on Arrival Any Indicators Present on Arrival: No History of DVT/PE: No History of Uncontrolled Diabetes: No Urinary Catheter: No History of Decub. Ulcer: No History Surgical Site Infection Following: None - Disposition Have Diagnosis and Disposition been Completed?: Yes Diagnosis: CHF (congestive heart failure), Bilateral cellulitis of lower leg Disposition: HOSPITALIZED Disposition Time: 22:00 Patient Plan: Admission Patient Problems: Current Active Problems Problem Status Onset Cellulitis Acute Condition: STABLE
[2018-07-19] MEDS: Vancomycin 1gm in NS 250ml 1 GM/250 ML BAG IVPB SCH (23:22)
[2018-07-20 04:21] VITALS: BMI 27.4
[2018-07-20] MEDS ORDERED: Meropenem IV 1 gm in NS 1 GM/50 ML BAG IVPB SCH (06:00)
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
--- NOTE | 2018-07-20 09:33 | RAD ---
Date of service: 07/19/2018 PROCEDURE: CHEST RADIOGRAPH, 1 VIEW HISTORY: b/l le edema, no sob COMPARISON: 11/28/2017 FINDINGS: LUNGS: Compared to the prior study pulmonary vascular congestion is improved. PLEURA: Pleural effusion seen previously are no longer apparent. CARDIOVASCULAR: No aortic atherosclerotic calcification present. Cardiomegaly. OSSEOUS STRUCTURES: No significant abnormalities. VISUALIZED UPPER ABDOMEN: Normal. OTHER FINDINGS: None. IMPRESSION: Interval improvement in CHF compared to the prior
--- NOTE | 2018-07-20 10:38 | US ---
HISTORY: Leg pain and swelling. Evaluate for DVT PHYSICIAN(S): Praveen Augustine MD. TECHNIQUE: Duplex sonography and color-flow Doppler with graded compression were used to evaluate the deep venous systems of both lower extremities. The exam is limited by edema. The tibial veins are not well seen FINDINGS: The visualized deep venous systems of both lower extremities are sonographically normal and compressible. Normal wave forms and augmentation are seen. There is no sonographic evidence for deep venous thrombosis in the visualized segments of both lower extremities. IMPRESSION: No sonographic evidence for deep venous thrombosis in the visualized segments of both lower extremities. Limited study.
[2018-07-20] MEDS: Vancomycin 1gm in NS 250ml 1 GM/250 ML BAG IVPB SCH ×2 (11:29→22:22)
[2018-07-20] MEDS: Enoxaparin 40 mg Syringe SC SCH (11:30)
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
[2018-07-20] MEDS ORDERED: Albuterol-Ipratrop 3 mg / 0.5 (3 ml) UD IH SCH (14:00)
[2018-07-20] MEDS: metOLazone 5 MG TAB PO SCH (15:07)
--- NOTE | 2018-07-20 19:28 | CARD ---
APPROVED REPORT Date of service: 07/20/2018 EKG Measurement Heart [id number] <Conclusion> Normal sinus rhythm Right bundle branch block Abnormal ECG
[2018-07-20] MEDS: Levalbuterol 0.63 MG/3 ML Inhal Soln UD IH SCH (20:40)
[2018-07-20] MEDS: Budesonide 0.5 mg/2 ml Inhal Susp UD IH SCH (20:40)
--- NOTE | 2018-07-20 21:35 | CON ---
DATE: 07/20/2018 LOCATION: The patient is in room 262, bed 2. REASON FOR CONSULTATION: Congestive heart failure, edema of legs, severe aortic stenosis, cellulitis of the legs. HISTORY OF APPARENT ILLNESS: The patient states for the last few days, she noticed her legs are swollen and she has pain and they became red. The patient states off and on she gets shortness of breath; denies chest pain or palpitation. The patient is known case of severe aortic stenosis, was treated with congestive heart failure in the past, also has cryptogenic cirrhosis, COPD, and thrombocytopenia. The patient refused TAVR in the past. History of coronary artery disease, status post PTCA of RCA in 04/2009; history of multiple nosebleeds, on aspirin and Plavix; multiple history of bilateral lower leg cellulitis and edema of the legs; hypertension; diabetes; chronic venous stasis. Echo on 11/17/2017, ejection fraction 60% to 65%, moderately RV dilated, RV function moderately reduced, [id number] aortic regurgitation, severe valvular aortic stenosis, moderate mitral regurgitation, moderate tricuspid regurgitation, RV systolic pressure of 61 mmHg, moderate pulmonary hypertension, and [id number] pulmonary insufficiency. CURRENT MEDICATIONS AT HOME: Spironolactone 25 b.i.d., DuoNeb hand nebulizer therapy, Lasix 80 p.o. b.i.d., and metoprolol 12.5 b.i.d. PERSONAL HISTORY: Denies smoking. Denies drinking. PHYSICAL EXAMINATION VITAL SIGNS: Blood pressure 106/48, respiratory rate 20, pulse 98, and temperature 98.2. HEAD: Normocephalic. Pupils normal. Conjunctivae normal. LUNGS: No significant rales. CARDIOVASCULAR: S1, S2 loud. Ejection systolic murmur grade 3/6. No rub. ABDOMEN: Soft. Bowel sound normal. EXTREMITIES: The patient has marked swelling in bilateral legs along with the redness in the leg and she also complained pain on touching the legs. LABORATORY DATA: WBC 3.8, hemoglobin 12.1, hematocrit 36.5, and platelets 84. Prothrombin time 13.2, INR 1.14. Sodium 137, potassium 4, BUN 23, and creatinine 0.8. NT-proB natriuretic peptide 948. Bilirubin 3, AST 45. Troponin negative. ALT 31, alkaline phosphatase 80, total protein 6, albumin 3. EKG shows sinus rhythm, RBBB pattern. Chest x-ray: Cardiomegaly. No CHF. No pleural effusion. DIAGNOSES: Shortness of breath; severe swelling of the legs; right heart failure due to right ventricular systolic dysfunction; cryptogenic cirrhosis; cellulitis of the legs; coronary artery disease; history of stent insertion; thrombocytopenia; history of multiple nosebleeds, on aspirin and Plavix; history of congestive heart failure; hypertension; diabetes; chronic venous stasis; moderate pulmonary hypertension; moderate mitral regurgitation; moderate tricuspid regurgitation; severe valvular aortic stenosis; moderate pulmonary regurgitation. PLAN: The patient is already started on spironolactone 25 b.i.d., Lasix 80 IV b.i.d., vancomycin 1 g IV every 12 hours, Singulair 10 mg at bedtime, Lovenox 40 mg subcu daily, metoprolol 12.5 b.i.d., DuoNeb hand nebulizer therapy. We will add Zaroxolyn 5 mg daily to diurese more and getting the swelling on the legs decreased. We will follow with you. Pablo Shah MD
[2018-07-20] MEDS: MethylPREDNISolone 40 mg Vial IVP SCH (22:08)
[2018-07-21 07:04] LABS: HEMOGLOBIN 11.2 g/dL (12.0-16.0); MEAN CELL VOLUME 95.3 fl (80.0-105.0); MEAN CORPUSCULAR HEMOGLOBIN 30.9 pg (25.0-35.0); MEAN CORPUSCULAR HGB CONC 32.5 g/dl (31.0-37.0); MEAN PLATELET VOLUME 9.8 fl (7.0-11.0); RBC 3.62 10^6/uL (3.5-6.1); RED CELL DISTRIBUTION WIDTH 15.7 % (11.5-14.5); WHITE BLOOD COUNT 2.7 10^3/uL (4.5-11.0)
[2018-07-21 07:05] LABS: BLOOD UREA NITROGEN 23 mg/dL (7-21); CALCIUM 9.3 mg/dL (8.4-10.5); GFR NON-AFRICAN AMERICAN > 60; HDL CHOLESTEROL 54 mg/dL (29-60)
[2018-07-21 07:14] LABS: B-TYPE NATRIURETIC PEPTIDE 2390 pg/mL (0-450)
[2018-07-21 07:16] LABS: LDL CHOLESTEROL 78 mg/dL (0-129)
[2018-07-21 07:21] LABS: IRON 38 ug/dL (45-180)
[2018-07-21 07:30] LABS: % IRON SATURATION 13 % (20-55); TOTAL IRON BINDING CAPACITY 302 ug/dL (265-497)
[2018-07-21] MEDS: Budesonide 0.5 mg/2 ml Inhal Susp UD IH SCH ×2 (07:45→19:32)
[2018-07-21] MEDS: Levalbuterol 0.63 MG/3 ML Inhal Soln UD IH SCH ×2 (07:45→19:32)
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
[2018-07-21] MEDS: MethylPREDNISolone 40 mg Vial IVP SCH ×2 (10:22→21:50)
[2018-07-21] MEDS: Enoxaparin 40 mg Syringe SC SCH (10:23)
[2018-07-21] MEDS: metOLazone 5 MG TAB PO SCH (10:25)
[2018-07-21] MEDS: Vancomycin 1gm in NS 250ml 1 GM/250 ML BAG IVPB SCH ×2 (10:25→23:58)
[2018-07-21 11:51] LABS: FOLATE 6.6 ng/mL
--- NOTE | 2018-07-21 15:54 | RAD ---
Date of service: 07/21/2018 PROCEDURE: Bilateral Feet Radiographs. HISTORY: bilateral foot pain COMPARISON: None available. FINDINGS: BONES: Right Foot: Diffuse osseous demineralization limits evaluation for acute fracture lines. Degenerative changes. No acute displaced fracture identified. Left Foot: Diffuse osseous demineralization limits evaluation for acute fracture lines. Degenerative changes. No acute displaced fracture identified. Partially imaged sin and screw fixation. JOINTS: Right Foot: No dislocation. Degenerative changes with joint space narrowing. Left Foot: No dislocation. Mild degenerative changes with joint space narrowing. SOFT TISSUES: Right Foot: Mild soft tissue swelling. Left Foot: Prominent soft tissue swelling particularly the dorsum of the foot. OTHER FINDINGS: None. IMPRESSION: Prominent soft tissue swelling particularly of the dorsum of the left foot. Mild soft tissue swelling of the right foot. Diffuse bilateral osseous demineralization. Degenerative changes.
[2018-07-21] MEDS: Clotrimazole/Betamethasone Cream(15 gm) TOP SCH (18:30)
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
--- NOTE | 2018-07-22 08:36 | CP.PCM.PN ---
<Celena Judd - Last Filed: 07/22/18 11:02> Subjective - Date & Time of Evaluation Date of Evaluation: 07/22/18 Time of Evaluation: 08:36 - Subjective Subjective: Podiatry Progress Note: Dr. Neal 78F patient seen and examined for b/l lower extremity edema and erythema. Patient is resting comfortably and in NAD. She denies any acute events overnight. Patient states that she is in less pain than yesterday to her bilateral lower extremities. She denies any other pedal complaints at this time. Denies N/V/F/CP. Objective - Vital Signs/Intake and Output Vital Signs (last 24 hours): Temp Pulse Resp BP Pulse Ox 98.2 F 78 19 101/53 L 98 07/22/18 06:00 07/22/18 06:00 07/22/18 06:00 07/22/18 06:00 07/22/18 06:00 Intake and Output: 07/22/18 07/22/18 06:59 18:59 Intake Total 730 Output Total 1050 Balance -320 - Medications Medications: Current Medications Betamethasone/Clotrimazole (Lotrisone) 0 gm TOP BID [facility] Last Admin: 07/21/18 18:30 Dose: 1 applic Budesonide (Pulmicort Respules) 0.5 mg IH [id number] [facility] Last Admin: 07/21/18 19:32 Dose: 0.5 mg Enoxaparin Sodium (Lovenox) 40 mg SC DAILY [facility]; Protocol Last Admin: 07/21/18 10:23 Dose: 40 mg Furosemide (Lasix) 80 mg IVP Q12 [facility] Last Admin: 07/21/18 21:50 Dose: 80 mg Vancomycin HCl (Vancomycin 1gm) 1 gm in 250 mls @ 167 mls/hr IVPB Q12H [facility]; Protocol Stop: 07/28/18 23:01 Last Admin: 07/21/18 23:58 Dose: 167 mls/hr Levalbuterol HCl (Xopenex) 0.63 mg IH BIDRESP [facility] Last Admin: 07/21/18 19:32 Dose: 0.63 mg Methylprednisolone (Solu-Medrol) 20 mg IVP Q12 [facility] Last Admin: 07/21/18 21:50 Dose: 20 mg Metolazone (Zaroxolyn) 5 mg PO DAILY [facility] Last Admin: 07/21/18 10:25 Dose: 5 mg Metoprolol Tartrate (Lopressor) 12.5 mg PO BID [facility] Last Admin: 07/21/18 18:29 Dose: 12.5 mg Montelukast Sodium (Singulair) 10 mg PO HS [facility] Last Admin: 07/21/18 21:50 Dose: 10 mg Pregabalin (Lyrica) 25 mg PO BID [facility] Last Admin: 07/21/18 23:46 Dose: 25 mg Spironolactone (Aldactone) 25 mg PO BID [facility] Last Admin: 07/21/18 18:29 Dose: 25 mg - Labs Labs: 07/21/18 06:00 07/21/18 06:00 - Constitutional Appears: Well, Non-toxic, No Acute Distress - Head Exam Head Exam: ATRAUMATIC, NORMOCEPHALIC - Extremities Exam Additional comments: B/L LE focused exam: Vasc: lightly palpable pedal pulses b/l secondary to edema, TG wnl, CFT < 3 sec to all digits, +2 brawny edema to b/l extremities Ortho: mild pain to palpation of legs and feet b/l Neuro: Gross sensation intact, protective sensation diminished Derm: No open lesions, mild diffuse erythema noted to b/l lower extremities circumfrentially, resolving, no fluctuance, no purulence, no drianage, no malodor - Neurological Exam Neurological Exam: Alert, Awake, Oriented x3 Assessment and Plan - Assessment and Plan (Free Text) Assessment: 78F patient with b/l lower extremity edema and erythema, resolving Plan: Patient seen and examined at bedside Chart, labs, vitals reviewed; afebrile B/l foot x-rays ordered; soft tissue swelling, diffuse bilateral osseous demineralization LE US; no evidence of DVT Lotrisone cream to be applied to b/l lower extremities BID Will continue to monitor b/l lower extremity edema and cellulitic changes Abx reccs per ID; continue Vancomycin and will continue to monitor clinical response No podiatric surgical intervention at this time <Timothy Neal - Last Filed: 07/24/18 12:35> Objective - Vital Signs/Intake and Output Vital Signs (last 24 hours): Temp Pulse Resp BP Pulse Ox 97.8 F 61 18 105/52 L 95 07/24/18 06:00 07/24/18 06:00 07/24/18 06:00 07/24/18 11:12 07/24/18 06:00 Intake and Output: 07/24/18 07/24/18 06:59 18:59 Intake Total 480 Output Total 1600 Balance -1120 - Medications Medications: Current Medications Benzonatate (Tessalon Perles) 100 mg PO TID [facility] Betamethasone/Clotrimazole (Lotrisone) 0 gm TOP BID [facility] Last Admin: 07/24/18 11:14 Dose: 1 applic Budesonide (Pulmicort Respules) 0.5 mg IH [id number] [facility] Last Admin: 07/24/18 07:41 Dose: 0.5 mg Emollient Ointment (Vaseline Oint) 5 gm TOP DAILY PRN PRN Reason: Dry skin Enoxaparin Sodium (Lovenox) 40 mg SC DAILY [facility]; Protocol Last Admin: 07/24/18 11:12 Dose: 40 mg Furosemide (Lasix) 80 mg IVP Q12 [facility] Last Admin: 07/24/18 11:12 Dose: 80 mg Vancomycin HCl (Vancomycin 1gm) 1 gm in 250 mls @ 167 mls/hr IVPB Q12H [facility]; Protocol Stop: 07/28/18 23:01 Last Admin: 07/24/18 11:11 Dose: 167 mls/hr Levalbuterol HCl (Xopenex) 0.63 mg IH BIDRESP [facility] Last Admin: 07/24/18 07:41 Dose: 0.63 mg Methylprednisolone (Solu-Medrol) 20 mg IVP Q12 [facility] Last Admin: 07/24/18 11:12 Dose: 20 mg Metolazone (Zaroxolyn) 5 mg PO DAILY [facility] Last Admin: 07/24/18 11:14 Dose: 5 mg Metoprolol Tartrate (Lopressor) 12.5 mg PO BID [facility] Last Admin: 07/24/18 11:20 Dose: Not Given Montelukast Sodium (Singulair) 10 mg PO HS [facility] Last Admin: 07/23/18 21:17 Dose: 10 mg Pantoprazole Sodium (Protonix Ec Tab) 40 mg PO 0600 [facility] Pregabalin (Lyrica) 25 mg PO BID [facility] Last Admin: 07/24/18 11:14 Dose: 25 mg Sodium Chloride (Burgin Nasal [place]) 1 ml NS Q3 [facility] Last Admin: 07/24/18 11:15 Dose: Not Given Spironolactone (Aldactone) 25 mg PO BID [facility] Last Admin: 07/24/18 11:14 Dose: 25 mg - Labs Labs: 07/24/18 07:15 07/24/18 07:15 Attending/Attestation - Attestation I have personally seen and examined this patient.: Yes I have fully participated in the care of the patient.: Yes I have reviewed all pertinent clinical information, including history, physical exam and plan: Yes
[2018-07-22] MEDS: Levalbuterol 0.63 MG/3 ML Inhal Soln UD IH SCH ×2 (09:00→19:22)
[2018-07-22] MEDS: Budesonide 0.5 mg/2 ml Inhal Susp UD IH SCH (09:00)
[2018-07-22] MEDS: Clotrimazole/Betamethasone Cream(15 gm) TOP SCH ×2 (10:15→17:42)
[2018-07-22] MEDS: MethylPREDNISolone 40 mg Vial IVP SCH ×2 (10:16→21:38)
[2018-07-22] MEDS: Enoxaparin 40 mg Syringe SC SCH (10:16)
[2018-07-22] MEDS: Vancomycin 1gm in NS 250ml 1 GM/250 ML BAG IVPB SCH ×2 (10:17→22:21)
[2018-07-22] MEDS: metOLazone 5 MG TAB PO SCH (10:18)
[2018-07-22 10:36] LABS: URINE BILIRUBIN NEGATIVE (NEGATIVE); URINE BLOOD TRACE-LYSED (NEGATIVE); URINE GLUCOSE (UA) NEGATIVE (NEGATIVE); URINE LEUKOCYTE ESTERASE NEGATIVE Leu/uL (NEGATIVE); URINE PROTEIN NEGATIVE mg/dL (<30 mg/dL); URINE UROBILINOGEN 0.2 E.U./dL (<1 E.U./dL)
[2018-07-22 10:38] LABS: URINE APPEARANCE CLEAR (CLEAR); URINE COLOR YELLOW (YELLOW)
[2018-07-22 10:52] LABS: URINE BACTERIA FEW (NEG); URINE RBC 0 - 2 /hpf (0-2); URINE WBC 0 - 2 /hpf (0-6)
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
[2018-07-22] MEDS ORDERED: Petrolatum Oint Foilpak (5 gm) TOP PRN (14:15)
--- NOTE | 2018-07-22 15:06 | PN ---
DATE: 07/22/2018 PULMONARY PROGRESS NOTE REFERRING PHYSICIAN: Dr. Rg. SUBJECTIVE: The patient is sitting up in a bed, reading the newspaper, feels much better, decreased shortness of breath. No chest pain. No nausea, no vomiting, no diarrhea. Decreased leg swelling and pain. OBJECTIVE: VITAL SIGNS: Temperature is 98, heart rate is 72, respiratory rate is 18, blood pressure 110/53, pulse of 96% room air. HEENT: Moist mucous membranes. Crowded airway. NECK: Supple. No JVD. LUNGS: Have a few crackles.. HEART: S1 and S2. Has a murmur. ABDOMEN: Soft, mild ascites. EXTREMITIES: Decreased erythema and swelling. NEUROLOGICAL: Awake, alert, follows simple commands. MEDICATIONS: She is on Aldactone 25 mg twice a day, Lasix 80 mg twice a day, metoprolol tartrate 12.5 mg twice a day, Lotrisone to affected area, Lovenox 40 mg daily, Lyrica 25 mg twice a day, Pulmicort inhaled twice a day, Singulair 10 mg daily, Solu-Medrol 20 mg every 12 hours, vancomycin 1 g IV every 12 hours, Xopenex inhaled twice a day, Zaroxolyn 5 mg daily. LABORATORY DATA: Shows blood sugar this morning is 138. Microbiology, blood culture, there is no growth. IMPRESSION AND PLAN: Chronic obstructive lung disease, obstructive sleep apnea syndrome, cardiomyopathy, valvular heart disease, coronary artery disease, pulmonary hypertension, cryptogenic cirrhosis, portal hypertension, recurrent lower extremity edema, cellulitis. Pulmonary point of view, improving. Has a history of severe epistaxis in the past. She is on DVT prophylaxis, has to watch closely. Continue diuretics, bronchodilator, nasal saline 2 sprays each nostril every 2 hours. May use petroleum jelly in the nostril on a p.r.n. basis. Follow up electrolytes. We will follow with you. Pablo Cantor MD
[2018-07-23 07:17] LABS: ALB/GLOB RATIO 0.8 (1.1-1.8); ALBUMIN 2.4 g/dL (3.0-4.8); ALT/SGPT 29 U/L (7-56); AST/SGOT 34 U/L (14-36); BLOOD UREA NITROGEN 45 mg/dL (7-21); CALCIUM 9.1 mg/dL (8.4-10.5); GFR NON-AFRICAN AMERICAN > 60
[2018-07-23] MEDS: Levalbuterol 0.63 MG/3 ML Inhal Soln UD IH SCH ×2 (07:28→20:39)
[2018-07-23] MEDS: Budesonide 0.5 mg/2 ml Inhal Susp UD IH SCH ×2 (07:28→20:39)
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
--- NOTE | 2018-07-23 08:29 | PN ---
DATE: 07/21/2018 PULMONARY PROGRESS NOTE REFERRING PHYSICIAN: Kristin Rg MD SUBJECTIVE: The patient is lying in bed, complains of left leg pain. The patient is sleepy, tired. Bilateral lower extremity swelling has improved since yesterday. No hemoptysis. No hematemesis. No hematuria. No diarrhea reported. OBJECTIVE: VITAL SIGNS: Temperature 97.9, pulse 83, blood pressure 103/49, respirations 18. GENERAL: No acute distress. Fatigued. HEENT: Moist mucous membranes. Crowded airway. Mallampati +4. NECK: Supple. No JVD. LUNGS: Fair airflow. Few rhonchi. CARDIAC: S1, S2. ABDOMEN: Soft, nontender, nondistended. EXTREMITIES: Bilateral lower extremities improved. NEUROLOGIC: Sleepy, arousable. Follows commands. LABORATORY DATA: Laboratory results reviewed. Hemoglobin 11.2, hematocrit 34.5, platelets 69, WBC 2.7. Sodium 137, potassium 4.5, chloride 107, carbon dioxide 26, iron gap 9, BUN 23, creatinine 0.8. Random glucose 145, calcium 9.3, iron 38, TBC 302, saturation 13%. BNP 2390, triglycerides 54, cholesterol 458, LDL 78, HDL 54, vitamin B12 400, folate 6.6, procalcitonin 0.05. TSH 1.08. MEDICATIONS: Reviewed. Betamethasone, Clotrimazole, Lotrisone cream application twice a day, Singulair 10 mg at night added to medications. No other changes since yesterday. IMPRESSION AND PLAN: ____ Arianna Robertson APN Pablo Cantor MD
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
--- NOTE | 2018-07-23 09:04 | HP ---
DATE OF EXAM: 07/20/2018 The patient is a 78-year-old female. The patient was seen and examined at the bedside in her room on 07/20/2018. CHIEF COMPLAINT: Swelling of the leg and pain. HISTORY OF PRESENT ILLNESS: Ms. Sullivan is a 78-year-old female with past medical history of diabetes mellitus, hypertension, congestive heart failure, COPD, severe aortic stenosis, cryptogenic cirrhosis of the liver, lower extremity edema, cellulitis and recurrent epistaxis, came to the emergency room with bilateral leg swelling and left leg discomfort since 5 days. The patient was seen in her print finisher often. Actually, the patient came in to my office 2 weeks ago. I gave her Augmentin and increased her Lasix, but symptoms not improved. The patient informed Dr. Garcia for the present symptoms and was subsequently referred to ED for medical evaluation. The patient states taking Tylenol this afternoon without any improvement in symptoms. The patient was taking 80 mg Lasix twice a day and Aldactone twice a day. No fever. No chills. No headache. No dizziness. No hematuria. No hematochezia. PAST MEDICAL HISTORY: COPD; asthma; cataract surgery; epistaxis; cryptogenic liver; diabetes mellitus type 2; anemia, status post blood transfusion; history of bilateral leg edema with stasis dermatitis; history of multiple falls; gastritis; hiatal hernia; depression; appendectomy; cholecystectomy; coronary artery disease requiring cardiac stenting. FAMILY HISTORY: Father and mother noncontributory. HABITS: Never smoked. No drugs. No ethanol. ALLERGIES: THE PATIENT IS ALLERGIC TO SOME TYPE OF ANTIBIOTIC, SHE DOES NOT REMEMBER. HOME MEDICATIONS: Lasix, spironolactone, Augmentin. REVIEW OF SYSTEMS: The patient was seen and examined in her room, complaining about swelling of the leg, pain in both legs. No fever. Mild cough and shortness of breath. No abdominal pain, diarrhea, nausea, vomiting. No dysuria. No change in the urinary frequency. No back pain or neck pain. No rash. No headache. No dizziness. No polyuria. No anxiety. PHYSICAL EXAMINATION VITAL SIGNS: Temperature 98.1, pulse 104, blood pressure 100/46, respiratory rate 19. HEENT: Head: Normocephalic, atraumatic. Eyes: PERRLA. Extraocular muscles are intact. Conjunctivae clear. Nose patent. Mucous membranes moist. NECK: Supple. No carotid bruit. No JVD or thyromegaly. CHEST: Bilaterally symmetrical. HEART: S1 and S2, positive. LUNGS: Clear to auscultation. ABDOMEN: Soft. Bowel sounds present. No organomegaly. EXTREMITIES: Positive edema and redness bilaterally, left more than the right. Pigmentation of stasis dermatitis. NEUROLOGICAL: The patient is awake and alert. Moving all 4 extremities. No focal deficit. LABORATORY DATA: White blood cells 3.8, hemoglobin 12.1, hematocrit 36.5, platelets 84. Sodium 137, potassium 4, BUN 23, creatinine 0.8, glucose 102. AST 45. ASSESSMENT AND PLAN: Ms. Sullivan is a 78-year-old lady with leukopenia; thrombocytopenia; abnormal liver function test; high BNP, rule out congestive heart failure; recent history of cardiomyopathy with severe aortic stenosis, refused surgery long time ago; pulmonary hypertension; chronic obstructive lung disease; recurrent renal failure; cryptogenic cirrhosis; portal hypertension; of the lower extremities; sleep apnea syndrome. The patient is noncompliant for her medications and office visits. Got course of antibiotics few days ago from my office, but still having swelling of the leg and redness, seen by print finisher who suggested to go to emergency room. Now admitted the patient, started IV Lasix and spironolactone, Infectious Disease consult called. Started antibiotics. We will put a consult with Dr. Garcia. Meanwhile, continue present treatment. Discussion done with the patient and nursing staff. We will follow up. Kristin Rg MD MTDD
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
--- NOTE | 2018-07-23 09:39 | CP.PCM.PN ---
Subjective - Date & Time of Evaluation Date of Evaluation: 07/23/18 Time of Evaluation: 09:36 - Subjective Subjective: Podiatry Progress Note: Dr. Garcia 78F patient seen and examined for b/l lower. She denies any other pedal complaints at this time. Denies N/V/F/CP. Objective - Vital Signs/Intake and Output Vital Signs (last 24 hours): Temp Pulse Resp BP Pulse Ox 98.4 F 65 20 105/54 L 97 07/23/18 06:00 07/23/18 06:00 07/23/18 06:00 07/23/18 06:00 07/23/18 06:00 Intake and Output: 07/23/18 07/23/18 06:59 18:59 Intake Total 1989 Output Total 2700 Balance -710 - Medications Medications: Current Medications Betamethasone/Clotrimazole (Lotrisone) 0 gm TOP BID [facility] Last Admin: 07/22/18 17:42 Dose: 1 applic Budesonide (Pulmicort Respules) 0.5 mg IH [id number] [facility] Last Admin: 07/23/18 07:28 Dose: 0.5 mg Emollient Ointment (Vaseline Oint) 5 gm TOP DAILY PRN PRN Reason: Dry skin Enoxaparin Sodium (Lovenox) 40 mg SC DAILY [facility]; Protocol Last Admin: 07/22/18 10:16 Dose: 40 mg Furosemide (Lasix) 80 mg IVP Q12 [facility] Last Admin: 07/22/18 21:36 Dose: 80 mg Vancomycin HCl (Vancomycin 1gm) 1 gm in 250 mls @ 167 mls/hr IVPB Q12H [facility]; Protocol Stop: 07/28/18 23:01 Last Admin: 07/22/18 22:21 Dose: 167 mls/hr Levalbuterol HCl (Xopenex) 0.63 mg IH BIDRESP [facility] Last Admin: 07/23/18 07:28 Dose: 0.63 mg Methylprednisolone (Solu-Medrol) 20 mg IVP Q12 [facility] Last Admin: 07/22/18 21:38 Dose: 20 mg Metolazone (Zaroxolyn) 5 mg PO DAILY [facility] Last Admin: 07/22/18 10:18 Dose: 5 mg Metoprolol Tartrate (Lopressor) 12.5 mg PO BID [facility] Last Admin: 07/22/18 17:41 Dose: 12.5 mg Montelukast Sodium (Singulair) 10 mg PO HS [facility] Last Admin: 07/22/18 21:39 Dose: 10 mg Pregabalin (Lyrica) 25 mg PO BID [facility] Last Admin: 07/22/18 17:55 Dose: 25 mg Sodium Chloride ([place] Nasal [place]) 1 ml NS Q3 [facility] Last Admin: 07/23/18 05:25 Dose: Not Given Spironolactone (Aldactone) 25 mg PO BID [facility] Last Admin: 07/22/18 17:40 Dose: 25 mg - Labs Labs: 07/21/18 06:00 07/23/18 06:00 - Constitutional Appears: Well, Non-toxic, No Acute Distress - Head Exam Head Exam: ATRAUMATIC, NORMOCEPHALIC - Extremities Exam Additional comments: B/L LE focused exam: Vasc: lightly palpable pedal pulses b/l secondary to edema, TG wnl, CFT < 3 sec to all digits, +2 brawny edema to b/l extremities Ortho: mild pain to palpation of legs and feet b/l Neuro: Gross sensation intact, protective sensation diminished Derm: No open lesions, mild diffuse erythema noted to b/l lower extremities circumfrentially, resolving, no fluctuance, no purulence, no drainage, no malodor - Neurological Exam Neurological Exam: Alert, Awake, Oriented x3 - Psychiatric Exam Psychiatric exam: Normal Affect, Normal Mood
[2018-07-23] MEDS: Enoxaparin 40 mg Syringe SC SCH (10:52)
[2018-07-23] MEDS: MethylPREDNISolone 40 mg Vial IVP SCH ×2 (10:53→21:16)
[2018-07-23] MEDS: metOLazone 5 MG TAB PO SCH (10:54)
[2018-07-23] MEDS: Vancomycin 1gm in NS 250ml 1 GM/250 ML BAG IVPB SCH ×2 (10:54→23:21)
[2018-07-23] MEDS: Clotrimazole/Betamethasone Cream(15 gm) TOP SCH ×2 (11:03→18:55)
--- NOTE | 2018-07-23 12:44 | PN ---
PULMONARY PROGRESS NOTE DATE: 07/23/2018 REFERRING PHYSICIAN: Dr. Kristin Rg. SUBJECTIVE: The patient is sitting up in bed. Reports feeling better today. Cough and shortness of breath are better. No headache, rhinitis, chest pain, abdominal pain, nausea, vomiting or diarrhea reported. No bilateral lower extremity pain reported. OBJECTIVE: GENERAL: No acute distress. VITAL SIGNS: Blood pressure 105/54, pulse 65, temperature 98.4, and oxygen saturation 97%. HEENT: Moist mucous membranes. Crowded airway. NECK: Supple. No JVD. LUNGS: Few rhonchi bilaterally. CARDIOVASCULAR: S1 and S2 audible, have a murmur. ABDOMEN: Soft and nontender. No distension. Bowel sounds present. No organomegaly. EXTREMITIES: Decreased erythema and swelling to bilateral lower extremities. NEUROLOGIC: Awake, alert, verbal, and follows simple commands. MEDICATIONS: Reviewed. Lotrisone topically twice a day to affected area, Pulmicort 0.5 mg inhalation every 12 hours, Vaseline ointment topically to affected area p.r.n., Lovenox 40 mg subcutaneous daily, Lasix 80 mg IV push every 12 hours, Xopenex 0.60 mg inhalation twice a day, Solu-Medrol 20 mg IV push every 12 hours, metolazone 5 mg p.o. daily, metoprolol tartrate 12.5 mg p.o. twice a day, Singulair 10 mg p.o. at bedtime, Lyrica 25 mg p.o. twice a day, [place] nasal spray every 3 hours, Aldactone 25 mg twice a day, and vancomycin 1 g every 12 hours. LABORATORY DATA: Reviewed. Sodium 136, potassium 4.1, chloride 103, carbon dioxide 31, anion gap 6, BUN 45, creatinine 0.9, GFR greater than 60, POC glucose 135, random glucose 158, calcium 9.1, total bilirubin 1.4, AST 34, ALT 29, alkaline phosphatase 60, total protein 5.3, albumin 2.4, globulin 2.9, and albumin-globulin ratio 0.8. IMPRESSION AND PLAN: Chronic obstructive lung disease, obstructive sleep apnea syndrome, cardiomyopathy, valvular heart disease, coronary artery disease, pulmonary hypertension, cryptogenic cirrhosis, portal hypertension, cellulitis, and recurrent lower extremity edema. Pulmonary point of view, the patient is doing well. Continue gastric prophylaxis, continue deep venous thrombosis prophylaxis, monitor closely for epistaxis, continue inhaled bronchodilators, nasal saline, diuretics and monitor electrolytes closely. The patient is presently refusing continuous positive airway pressure machine for obstructive sleep apnea. Head of bed elevated at 45 degrees, sleep apnea precaution, and fall precaution. We recommended the patient have full pulmonary function test as outpatient. The patient was seen and examined with Dr. Cantor. Discussed assessment and plan as described above. Thank you for this consult. We will follow with you. Alec Marie APN Pablo Cantor MD
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
--- NOTE | 2018-07-23 14:15 | PN ---
DATE: 07/23/2018 SEX OF THE PATIENT: Female. AGE OF THE PATIENT: 78. TYPE OF DICTATION: Progress note. REASON FOR CONSULTATION: Cardiac evaluation, bilateral leg swelling, history of diabetes, hypertension, hyperlipidemia, COPD, CHF, aortic stenosis<cirrhosis liver disease. This note is addition to dictated by the nurse practitioner, Deisi Nair. SUBJECTIVE: The patient is 78-year-old female with past medical history significant for cryptogenic cirrhosis, history of PTCA of RCA in 2008, history of severe aortic stenosis, refused TAVR. Last echo was 12/04/2017 shows ejection fraction 5% moderately dilated, RV moderately reduced RV systolic function, moderate AR, severe aortic stenosis, moderate MR, moderate TR, RV systolic pressure 61. Recent ultrasound is negative for DVT. RECOMMENDATION: Continue Lovenox, continue Lasix, continue treatment for COPD. CVS status is stable. Overall, the patient's critical long-term prognosis is guarded. We will discontinue telemetry. LABORATORY DATA: The patient's WBC count 2.7, platelet count 87. We will follow with you. We will repeat SMA-7 tomorrow. Thank you, Dr. Rg, for providing us the opportunity in taking care of the patient, Laurie Killian Pablo Guillermo MD MTDD
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
[2018-07-24] MEDS: Levalbuterol 0.63 MG/3 ML Inhal Soln UD IH SCH ×2 (07:41→20:03)
[2018-07-24] MEDS: Budesonide 0.5 mg/2 ml Inhal Susp UD IH SCH ×2 (07:41→20:03)
[2018-07-24 07:56] LABS: GRAN # 4.44 (1.4-6.5); GRAN % 79.9 % (50.0-68.0); LYMPH # 0.6 (1.2-3.4); LYMPH % 10.6 % (22.0-35.0); MEAN CELL VOLUME 95.7 fl (80.0-105.0); MEAN CORPUSCULAR HEMOGLOBIN 31.7 pg (25.0-35.0); MEAN CORPUSCULAR HGB CONC 33.1 g/dl (31.0-37.0); MEAN PLATELET VOLUME 9.4 fl (7.0-11.0); MONO # 0.5 (0.1-0.6); MONO % 9.5 % (1.0-6.0); RBC 3.47 10^6/uL (3.5-6.1); RED CELL DISTRIBUTION WIDTH 15.7 % (11.5-14.5); WHITE BLOOD COUNT 5.6 10^3/uL (4.5-11.0)
[2018-07-24 08:32] LABS: ALBUMIN 2.8 g/dL (3.0-4.8); ALT/SGPT 35 U/L (7-56); AST/SGOT 35 U/L (14-36); BLOOD UREA NITROGEN 46 mg/dL (7-21); CALCIUM 9.4 mg/dL (8.4-10.5); GFR NON-AFRICAN AMERICAN > 60
[2018-07-24] MEDS: Vancomycin 1gm in NS 250ml 1 GM/250 ML BAG IVPB SCH ×2 (11:11→22:05)
[2018-07-24] MEDS: MethylPREDNISolone 40 mg Vial IVP SCH ×2 (11:12→22:04)
[2018-07-24] MEDS: Enoxaparin 40 mg Syringe SC SCH (11:12)
[2018-07-24] MEDS: Clotrimazole/Betamethasone Cream(15 gm) TOP SCH ×2 (11:14→19:09)
[2018-07-24] MEDS: metOLazone 5 MG TAB PO SCH (11:14)
--- NOTE | 2018-07-24 12:37 | CP.PCM.PN ---
<Celena Judd - Last Filed: 07/24/18 12:45> Subjective - Date & Time of Evaluation Date of Evaluation: 07/24/18 Time of Evaluation: 12:37 - Subjective Subjective: Podiatry Progress Note: Dr. Neal 78F patient seen and evaluated for b/l lower extremity erythema and edema. Patient is resting comfortably and in NAD. She states that her pain is almost fully resolved to her lower extremities, however she is still experiencing pain to her back. She denies any other pedal complaints at this time. She denies N/V/F/CP. Objective - Vital Signs/Intake and Output Vital Signs (last 24 hours): Temp Pulse Resp BP Pulse Ox 97.8 F 61 18 105/52 L 95 07/24/18 06:00 07/24/18 06:00 07/24/18 06:00 07/24/18 11:12 07/24/18 06:00 Intake and Output: 07/24/18 07/24/18 06:59 18:59 Intake Total 480 Output Total 1600 Balance -1120 - Medications Medications: Current Medications Benzonatate (Tessalon Perles) 100 mg PO TID [facility] Betamethasone/Clotrimazole (Lotrisone) 0 gm TOP BID [facility] Last Admin: 07/24/18 11:14 Dose: 1 applic Budesonide (Pulmicort Respules) 0.5 mg IH [id number] [facility] Last Admin: 07/24/18 07:41 Dose: 0.5 mg Emollient Ointment (Vaseline Oint) 5 gm TOP DAILY PRN PRN Reason: Dry skin Enoxaparin Sodium (Lovenox) 40 mg SC DAILY [facility]; Protocol Last Admin: 07/24/18 11:12 Dose: 40 mg Furosemide (Lasix) 80 mg IVP Q12 [facility] Last Admin: 07/24/18 11:12 Dose: 80 mg Vancomycin HCl (Vancomycin 1gm) 1 gm in 250 mls @ 167 mls/hr IVPB Q12H [facility]; Protocol Stop: 07/28/18 23:01 Last Admin: 07/24/18 11:11 Dose: 167 mls/hr Levalbuterol HCl (Xopenex) 0.63 mg IH BIDRESP [facility] Last Admin: 07/24/18 07:41 Dose: 0.63 mg Methylprednisolone (Solu-Medrol) 20 mg IVP Q12 [facility] Last Admin: 07/24/18 11:12 Dose: 20 mg Metolazone (Zaroxolyn) 5 mg PO DAILY [facility] Last Admin: 07/24/18 11:14 Dose: 5 mg Metoprolol Tartrate (Lopressor) 12.5 mg PO BID [facility] Last Admin: 07/24/18 11:20 Dose: Not Given Montelukast Sodium (Singulair) 10 mg PO HS [facility] Last Admin: 07/23/18 21:17 Dose: 10 mg Pantoprazole Sodium (Protonix Ec Tab) 40 mg PO 0600 [facility] Pregabalin (Lyrica) 25 mg PO BID [facility] Last Admin: 07/24/18 11:14 Dose: 25 mg Sodium Chloride ([place]erril Nasal [place]) 1 ml NS Q3 [facility] Last Admin: 07/24/18 11:15 Dose: Not Given Spironolactone (Aldactone) 25 mg PO BID [facility] Last Admin: 07/24/18 11:14 Dose: 25 mg - Labs Labs: 07/24/18 07:15 07/24/18 07:15 - Constitutional Appears: Non-toxic, No Acute Distress - Head Exam Head Exam: ATRAUMATIC, NORMOCEPHALIC - Extremities Exam Additional comments: B/L LE focused exam: Vasc: lightly palpable pedal pulses b/l secondary to edema, TG wnl, CFT < 3 sec to all digits, +1 brawny edema to b/l extremities Ortho: mild pain to palpation of legs and feet b/l, MMT 4/5 in all compartments Neuro: Gross sensation intact, protective sensation diminished Derm: No open lesions, mild diffuse erythema noted to b/l lower extremities circumfrentially, resolving, no fluctuance, no purulence, no drainage, no malodor - Neurological Exam Neurological Exam: Alert, Awake, Oriented x3 - Psychiatric Exam Psychiatric exam: Normal Affect, Normal Mood Assessment and Plan - Assessment and Plan (Free Text) Assessment: 78F patient with b/l lower extremity edema and erythema, resolving Plan: Patient seen and examined at bedside Chart, labs, vitals reviewed; afebrile, WBC 5.6 B/l foot x-rays ordered; soft tissue swelling, diffuse bilateral osseous demineralization LE US; no evidence of DVT Abx reccs per ID; continue Vancomycin and will continue to monitor clinical response Lotrisone cream to be applied to b/l lower extremities BID; erythema resolving No podiatric surgical intervention at this time <Timothy Neal - Last Filed: 07/24/18 15:12> Objective - Vital Signs/Intake and Output Vital Signs (last 24 hours): Temp Pulse Resp BP Pulse Ox 97.8 F 61 18 105/52 L 95 07/24/18 06:00 07/24/18 06:00 07/24/18 06:00 07/24/18 11:12 07/24/18 06:00 Intake and Output: 07/24/18 07/24/18 06:59 18:59 Intake Total 480 Output Total 1600 Balance -1120 - Medications Medications: Current Medications Benzonatate (Tessalon Perles) 100 mg PO TID [facility] Last Admin: 07/24/18 14:48 Dose: Not Given Betamethasone/Clotrimazole (Lotrisone) 0 gm TOP BID [facility] Last Admin: 07/24/18 11:14 Dose: 1 applic Budesonide (Pulmicort Respules) 0.5 mg IH [id number] [facility] Last Admin: 07/24/18 07:41 Dose: 0.5 mg Emollient Ointment (Vaseline Oint) 5 gm TOP DAILY PRN PRN Reason: Dry skin Enoxaparin Sodium (Lovenox) 40 mg SC DAILY [facility]; Protocol Last Admin: 07/24/18 11:12 Dose: 40 mg Furosemide (Lasix) 80 mg IVP Q12 [facility] Last Admin: 07/24/18 11:12 Dose: 80 mg Vancomycin HCl (Vancomycin 1gm) 1 gm in 250 mls @ 167 mls/hr IVPB Q12H [facility]; Protocol Stop: 07/28/18 23:01 Last Admin: 07/24/18 11:11 Dose: 167 mls/hr Levalbuterol HCl (Xopenex) 0.63 mg IH BIDRESP [facility] Last Admin: 07/24/18 07:41 Dose: 0.63 mg Methylprednisolone (Solu-Medrol) 20 mg IVP Q12 [facility] Last Admin: 07/24/18 11:12 Dose: 20 mg Metolazone (Zaroxolyn) 5 mg PO DAILY [facility] Last Admin: 07/24/18 11:14 Dose: 5 mg Metoprolol Tartrate (Lopressor) 12.5 mg PO BID [facility] Last Admin: 07/24/18 11:20 Dose: Not Given Montelukast Sodium (Singulair) 10 mg PO HS [facility] Last Admin: 07/23/18 21:17 Dose: 10 mg Pantoprazole Sodium (Protonix Ec Tab) 40 mg PO 0600 [facility] Pregabalin (Lyrica) 25 mg PO BID [facility] Last Admin: 07/24/18 11:14 Dose: 25 mg Sodium Chloride ([place] Nasal [place]) 1 ml NS Q3 [facility] Last Admin: 07/24/18 11:15 Dose: Not Given Spironolactone (Aldactone) 25 mg PO BID [facility] Last Admin: 07/24/18 11:14 Dose: 25 mg - Labs Labs: 07/24/18 07:15 07/24/18 07:15 Attending/Attestation - Attestation I have personally seen and examined this patient.: Yes I have fully participated in the care of the patient.: Yes I have reviewed all pertinent clinical information, including history, physical exam and plan: Yes
--- NOTE | 2018-07-24 12:41 | PN ---
PULMONARY PROGRESS NOTE DATE: 07/24/2018 SUBJECTIVE: The patient is sitting up in bed. Reports continued cough. Reports shortness of breath has improved. No headache, rhinitis, chest pain, abdominal pain, nausea, vomiting, diarrhea or leg pain reported. OBJECTIVE: GENERAL: No acute distress. VITAL SIGNS: Blood pressure 104/52, pulse 61, temperature 97.8, and oxygen 95% on room air. HEENT: Moist mucous membranes. Crowded airway. NECK: Supple. No JVD. LUNGS: Few rhonchi bilaterally. CARDIOVASCULAR: S1 and S2 audible. The patient has murmur. ABDOMEN: Soft and nontender. No distension. No organomegaly. EXTREMITIES: Bilateral lower extremity edema and erythema improving. NEUROLOGIC: Awake, alert, and verbal. Follows simple commands. MEDICATIONS: Reviewed. Lotrisone topically twice a day to affected area, Pulmicort 0.5 mg inhalation every 12 hours, Vaseline ointment topically to affected area p.r.n., Lovenox 50 mg subcutaneous daily, Lasix 80 mg IV push every 12 hours, Xopenex 0.6 mg inhalation twice a day, Solu-Medrol 20 mg every 12 hours, metolazone 5 mg p.o. daily, metoprolol tartrate 12.5 mg twice a day, Singulair 10 mg at bedtime, Lyrica 25 mg twice a day, [place] nasal spray 1 mL every 3 hours, spironolactone 25 mg twice a day and vancomycin 1 g every 12 hours. LABORATORY DATA: Reviewed. WBC 5.6, RBC 3.47, hemoglobin 11, hematocrit 33.2, and platelets 80. Sodium 137, potassium 4.0, chloride 101, carbon dioxide 32, anion gap 9, BUN 46, creatinine 0.9, GFR greater than 60, random glucose 141, calcium 9.4, phosphorus 3.9, magnesium 2.1, total bilirubin 2.0, AST 35, ALT 35, alkaline phosphatase 66, total protein 5.7, albumin 2.8, globulin 2.9 and albumin-globulin ratio 1.0. IMPRESSION AND PLAN: Chronic obstructive lung disease, obstructive sleep apnea syndrome, cardiomyopathy, valvular heart disease, coronary artery disease, pulmonary hypertension, cryptogenic cirrhosis, portal hypertension, cellulitis, and recurrent lower extremity edema. Pulmonary point of view, continue deep venous thrombosis prophylaxis, monitor closely for epistaxis, continue inhaled bronchodilators, nasal saline, diuretics. Need to monitor electrolytes closely. We will add Tessalon Perles and Protonix. We recommend the patient be sitting up while eating and remain sitting up for 1 hour after eating. Sleep apnea precaution. The patient presently does not wish to use continuous positive airway pressure machine. Fall precaution. We recommend the patient have full pulmonary function test as outpatient. This patient was seen and examined with Dr. Cantor. Discussed assessment and plan as described above. Thank you for this consult, and we will follow with you. Alec PrKATHY finley Pablo Cantor MD [facility]
--- NOTE | 2018-07-24 13:15 | PN ---
DATE: 07/24/2018 REASON FOR CONSULTATION: Cardiac evaluation, bilateral leg swelling, diabetes, hypertension, cirrhosis of the liver, critical aortic stenosis, chronic obstructive pulmonary disease and congestive heart failure. HISTORY OF PRESENT ILLNESS: The patient feels better. This note is in addition to the note dictated by nurse practitioner, Deisi Nair. Last echo 11/17/2012, ejection fraction 65%, moderately dilated RV, moderately reduced RV function, severe aortic stenosis, moderate TR. Recent duplex scan negative for ultrasound. ASSESSMENT AND PLAN: Recommending cardiac stent if stable and DVT prophylaxis, continue gentle diuretics, continue treatment for chronic obstructive pulmonary disease. Monitor electrolytes. The patient has known history of thrombocytopenia probably secondary to cirrhosis of the liver. We will follow CVS status. If stable, increase nutritional support. Protein-calorie malnutrition, which is new since admission. [id number] albumin of 2.8. We will give some nutrition supplement, Glucerna. Thank you, Dr. Rg for providing us the opportunity in taking care of the patient, Maria D Sullivan. The patient refused TAVR in the past. Pablo Guillermo MD
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
[2018-07-25] MEDS: Pantoprazole 40 mg EC Tab PO SCH (05:33)
[2018-07-25 06:13] LABS: ALB/GLOB RATIO 0.9 (1.1-1.8); ALBUMIN 2.5 g/dL (3.0-4.8); ALT/SGPT 35 U/L (7-56); AST/SGOT 30 U/L (14-36); BLOOD UREA NITROGEN 53 mg/dL (7-21); CALCIUM 9.4 mg/dL (8.4-10.5); GFR NON-AFRICAN AMERICAN > 60
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
[2018-07-25] MEDS: Levalbuterol 0.63 MG/3 ML Inhal Soln UD IH SCH ×2 (08:37→20:37)
[2018-07-25] MEDS: Budesonide 0.5 mg/2 ml Inhal Susp UD IH SCH ×2 (08:37→20:37)
--- NOTE | 2018-07-25 10:35 | CP.PCM.PN ---
Subjective - Date & Time of Evaluation Date of Evaluation: 07/25/18 Time of Evaluation: 10:32 - Subjective Subjective: Podiatry Progress Note: Dr. Garcia 78F patient seen and evaluated for bilateral lower extremity edema and erythema, resolving. Patient just came back from completing physical therapy and resting comfortably. She states that she feels her leg swelling and redness is going down. Denies N/V/F/CP however if reporting occasional cough. Objective - Vital Signs/Intake and Output Vital Signs (last 24 hours): Temp Pulse Resp BP Pulse Ox 98.1 F 70 18 99/54 L 93 L 07/25/18 07:30 07/25/18 07:30 07/25/18 07:30 07/25/18 07:30 07/25/18 07:30 Intake and Output: 07/25/18 07/25/18 06:59 18:59 Intake Total 480 Output Total 1200 Balance -720 - Medications Medications: Current Medications Benzonatate (Tessalon Perles) 100 mg PO TID [facility] Last Admin: 07/24/18 19:08 Dose: 100 mg Betamethasone/Clotrimazole (Lotrisone) 0 gm TOP BID [facility] Last Admin: 07/24/18 19:09 Dose: 1 applic Budesonide (Pulmicort Respules) 0.5 mg IH [id number] [facility] Last Admin: 07/25/18 08:37 Dose: 0.5 mg Emollient Ointment (Vaseline Oint) 5 gm TOP DAILY PRN PRN Reason: Dry skin Enoxaparin Sodium (Lovenox) 40 mg SC DAILY [facility]; Protocol Last Admin: 07/24/18 11:12 Dose: 40 mg Furosemide (Lasix) 80 mg IVP Q12 [facility] Last Admin: 07/24/18 22:03 Dose: 80 mg Levalbuterol HCl (Xopenex) 0.63 mg IH BIDRESP [facility] Last Admin: 07/25/18 08:37 Dose: 0.63 mg Methylprednisolone (Solu-Medrol) 20 mg IVP Q12 [facility] Last Admin: 07/24/18 22:04 Dose: 20 mg Metolazone (Zaroxolyn) 5 mg PO DAILY [facility] Last Admin: 07/24/18 11:14 Dose: 5 mg Metoprolol Tartrate (Lopressor) 12.5 mg PO BID [facility] Last Admin: 07/24/18 19:10 Dose: Not Given Montelukast Sodium (Singulair) 10 mg PO HS [facility] Last Admin: 07/24/18 22:05 Dose: 10 mg Pantoprazole Sodium (Protonix Ec Tab) 40 mg PO 0600 [facility] Last Admin: 07/25/18 05:33 Dose: 40 mg Pregabalin (Lyrica) 25 mg PO BID [facility] Last Admin: 07/24/18 19:59 Dose: Not Given Sodium Chloride ([place] Nasal [place]) 1 ml NS Q3 [facility] Last Admin: 07/25/18 04:41 Dose: Not Given Spironolactone (Aldactone) 25 mg PO BID [facility] Last Admin: 07/24/18 19:10 Dose: 25 mg - Labs Labs: 07/24/18 07:15 07/25/18 05:25 - Constitutional Appears: Well, Non-toxic, No Acute Distress - Head Exam Head Exam: ATRAUMATIC, NORMOCEPHALIC - Extremities Exam Additional comments: B/L LE focused exam: Vasc: lightly palpable pedal pulses b/l secondary to edema, TG wnl, CFT < 3 sec to all digits, +1 brawny edema to b/l extremities, resolving Ortho: mild pain to palpation of legs and feet b/l, MMT 4/5 in all compartments Neuro: Gross sensation intact, protective sensation diminished Derm: No open lesions, mild diffuse erythema noted to b/l lower extremities circumfrentially, resolving, no fluctuance, no purulence, no drainage, no malodor, no weeping - Neurological Exam Neurological Exam: Alert, Awake, Oriented x3 - Psychiatric Exam Psychiatric exam: Normal Affect, Normal Mood - Skin Skin Exam: Warm Assessment and Plan - Assessment and Plan (Free Text) Assessment: 78F patient seen and evaluated for bilateral lower extremity edema and erythema, resolving Plan: Patient seen and examined with Dr. Garcia Chart, labs, vitals reviewed; afebrile, absent leukocytosis B/l foot x-rays ordered; soft tissue swelling, diffuse bilateral osseous demineralization LE US; no evidence of DVT Abx reccs per ID; continue Vancomycin day 6 and will continue to monitor clinical response - target 7-10 days of antibiotics but can switch to PO antibiotics Lotrisone cream to be applied to b/l lower extremities BID; erythema resolving No podiatric surgical intervention at this time, pending d/c patient to follow up in Dr. Garcia's office
[2018-07-25] MEDS: metOLazone 5 MG TAB PO SCH (11:08)
[2018-07-25] MEDS: Enoxaparin 40 mg Syringe SC SCH (11:08)
[2018-07-25] MEDS: MethylPREDNISolone 40 mg Vial IVP SCH ×2 (11:09→22:15)
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
--- NOTE | 2018-07-25 13:49 | PN ---
DATE: 07/25/2018 PULMONARY PROGRESS NOTE REFERRING PHYSICIAN: Kristin Rg MD. SUBJECTIVE: The patient is sitting up in bed, in no acute distress. No overnight events reported. The patient reports the cough has improved. No headache, rhinitis, shortness of breath, chest pain, abdominal pain, nausea, vomiting, or diarrhea reported. PHYSICAL EXAMINATION: GENERAL: No acute distress. VITAL SIGNS: Blood pressure 99/54, pulse 70, temperature 98.1, and oxygen saturation 93. HEENT: Moist mucous membranes. Crowded airway. NECK: Supple. No JVD. LUNGS: Few rhonchi bilaterally. CARDIOVASCULAR: S1, S2 audible. Positive murmur. ABDOMEN: Soft and nontender. No distension. No organomegaly. EXTREMITIES: Improving bilateral lower extremity edema and erythema. NEUROLOGIC: Awake, alert, verbal, follows commands. MEDICATIONS REVIEWED: Tessalon Perles 100 mg 3 times a day, Lotrisone topically twice a day to affected area, Pulmicort 0.5 mg every 12 hours, Vaseline ointment 5 g topically daily, Lovenox 40 mg subcutaneous daily, Lasix 80 mg twice a day, Xopenex 0.60 mg inhalation twice a day, Solu-Medrol 20 mg IV push every 12 hours, metolazone 5 mg p.o. daily, Lopressor 0.5 mg twice a day, Singulair 10 mg at bedtime, Protonix 40 mg daily, Lyrica 25 mg twice a day, sodium chloride nasal spray every 3 hours, Aldactone 25 mg twice a day. LABORATORY DATA: Reviewed. Sodium 135, potassium 3.9, chloride 99, carbon dioxide 33, anion gap 7, BUN 53, creatinine 0.9, GFR greater than 60, POC glucose 164, random glucose 182, calcium 9.4, total bilirubin 2, AST 30, ALT 35, alkaline phosphatase 63, total protein 5.2, albumin 2.5, globulin 2.8, and albumin-globulin ratio 0.9. IMPRESSION AND PLAN: Chronic obstructive lung disease, obstructive sleep apnea syndrome, cardiomyopathy, valvular heart disease, coronary artery disease, pulmonary hypertension, cryptogenic cirrhosis, portal hypertension, cellulitis, and recurrent lower extremity edema. Pulmonary point of view, continue deep venous thrombosis prophylaxis. Continue inhaled bronchodilators. We will change diuretics from IV to p.o. Need to monitor electrolytes closely. Continue gastric prophylaxis. We recommend the patient to be sitting up while eating and remain sitting up for one hour after eating. Sleep apnea precautions. Head of bed elevated at 45 degrees. The patient presently does not want to use CPAP machine for sleep apnea syndrome. We recommend the patient have full pulmonary function test as outpatient. This patient was seen and examined with Dr. Cantor. Discussed assessment and plan as described above. Thank you for this consult. We will follow with you. Alec Marie APN Pablo Cantor MD
[2018-07-25] MEDS: Vancomycin 1gm in NS 250ml 1 GM/250 ML BAG IVPB SCH (14:42)
--- NOTE | 2018-07-25 15:44 | PQF ---
PROVIDER RESPONSE TEXT: CHF secondary to Diastolic Dysfunction and Valvular Heart Diz ( Severe ). REVIEWER QUERY TEXT: CHF Acuity and Type Congestive Heart Failure is documented in the Medical Record. Please document the type and acuity (in cludes probable or suspected) Such as: Type: -- Systolic -- Diastolic -- Combined -- Other, please specify Acuity: -- Acute -- Chronic -- Acute on chronic -- Other, please specify Also please document the underlying cause of the CHF (includes probable or suspected) The patient's Clinical Indicators include: Patient admitted with cellulitis legs and CHF. CXR shows improving CHF, BNP elevated, treated with Lasix. Consult and subsequent documentation notes patient has right sided heart failure. Please be more spec ific about type and acuity of CHF. Query created by: Henrietta Acharya on 07/25/2018 7:12 AM Electronically signed by: Pablo Guillermo 07/25/2018 3:40 PM
[2018-07-25] MEDS: Clotrimazole/Betamethasone Cream(15 gm) TOP SCH (17:58)
--- NOTE | 2018-07-25 19:21 | PN ---
DATE: 07/25/2018 REASON FOR CONSULTATION AND FOLLOWUP: Cardiac evaluation, bilateral leg swelling, history of diabetes, hypertension, COPD, severe aortic stenosis, refused TAVR in the past. This note is addition to dictated by the nurse practitioner, Deisi Nair. SUBJECTIVE: The patient denies any chest pain and feels better. RECOMMENDATION: Continue Lovenox. Continue diuretics. Continue treatment for COPD. Today labs shows a hemoglobin of 11, hematocrit 33, and platelet count is 80. The patient has a protein calorie malnutrition. Albumin 2.5 consistent with a moderate protein calorie malnutrition, which is new since admission. Continue spironolactone. Continue Lasix. Continue DVT prophylaxis. Monitor closely platelet. Increase the nutritional support for protein calorie malnutrition. supplement was done and started from yesterday Glucerna. CVS status is stable. We will follow with you. Thank you Dr. Rg for providing the opportunity in taking care of the patient, Maria D Sullivan. Pablo Guillermo MD
[2018-07-26] MEDS: Vancomycin 1gm in NS 250ml 1 GM/250 ML BAG IVPB SCH (01:40)
--- NOTE | 2018-07-26 04:14 | PN ---
DATE: 07/25/2018 SUBJECTIVE: The patient was doing physical therapy, feeling better. No fevers. No chills. No hematuria or hematochezia. Swelling of the legs is better. Cough is better. Shortness of breath is better. PHYSICAL EXAMINATION: VITAL SIGNS: Blood pressure 99/54, pulse 70, temperature 98.1, oxygenation 93%. HEENT: Head: Normocephalic and atraumatic. Eyes: PERRLA. Extraocular muscles intact. Conjunctivae clear. Nose patent. NECK: Supple. No carotid bruits. No JVD or thyromegaly. CHEST: Bilaterally symmetrical. HEART: S1 and S2 positive. LUNGS: Clear to auscultation. ABDOMEN: Soft. Bowel sounds positive. No organomegaly. EXTREMITIES: No edema. No cyanosis. NEUROLOGIC: The patient is awake, alert. Moving all four extremities. No focal deficit. MEDICATIONS: Tessalon Perles, Lotrisone, Pulmicort, Vaseline, Lovenox, Lasix, Xopenex, Solu-Medrol, Lopressor, Singulair, Protonix, Lyrica, Aldactone. LABORATORY DATA: Sodium 135, potassium 3.9, BUN 53, creatinine 0.9, glucose 164, AST 30, ALT 35. ASSESSMENT AND PLAN: Ms. Maria D Sullivan, 78 years old lady, with multiple medical problems, has chronic obstructive lung disease, obstructive sleep apnea syndrome, cardiomyopathy, peripheral heart disease, coronary artery disease, pulmonary hypertension, cryptogenic cirrhosis, portal hypertension, cellulitis of lower extremities, getting physical therapy. PT is recommending [facility]; the patient refused to go to [facility]; planning to get to TCU. Meanwhile, continue present treatment. Repeat labs. We will follow up. Kristin Rg MD
[2018-07-26] MEDS: Pantoprazole 40 mg EC Tab PO SCH (05:18)
[2018-07-26 07:04] LABS: ALB/GLOB RATIO 0.9 (1.1-1.8); ALBUMIN 2.6 g/dL (3.0-4.8); ALT/SGPT 38 U/L (7-56); AST/SGOT 31 U/L (14-36); BLOOD UREA NITROGEN 49 mg/dL (7-21); CALCIUM 9.4 mg/dL (8.4-10.5); GFR NON-AFRICAN AMERICAN 54
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
[2018-07-26] MEDS: Budesonide 0.5 mg/2 ml Inhal Susp UD IH SCH ×2 (07:45→19:09)
[2018-07-26] MEDS: Levalbuterol 0.63 MG/3 ML Inhal Soln UD IH SCH ×2 (07:45→19:09)
[2018-07-26] MEDS: metOLazone 5 MG TAB PO SCH (09:37)
[2018-07-26] MEDS: MethylPREDNISolone 40 mg Vial IVP SCH ×2 (09:37→21:10)
[2018-07-26] MEDS: Enoxaparin 40 mg Syringe SC SCH (09:38)
[2018-07-26] MEDS: Clotrimazole/Betamethasone Cream(15 gm) TOP SCH ×2 (09:42→18:00)
--- NOTE | 2018-07-26 10:43 | RAD ---
Date of service: 07/26/2018 PROCEDURE: CHEST RADIOGRAPH, 1 VIEW HISTORY: rule out pneumonia COMPARISON: 07/19/2018 FINDINGS: LUNGS: There is a right lower lobe infiltrate PLEURA: Small bilateral pleural effusions CARDIOVASCULAR: Aortic calcification mild cardiomegaly OSSEOUS STRUCTURES: No significant abnormalities. VISUALIZED UPPER ABDOMEN: Normal. OTHER FINDINGS: None. IMPRESSION: Right lower lobe infiltrate. Small pleural effusions
[2018-07-26] MEDS ORDERED: Azithromycin 500MG/NS 250ml 500 MG/250 ML BAG IVPB STA (11:43)
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
[2018-07-26] MEDS: levoFLOXacin 500 MG TAB PO SCH (13:10)
--- NOTE | 2018-07-26 13:12 | PN ---
DATE: 07/26/2018 PULMONARY PROGRESS NOTE REFERRING PHYSICIAN: Kristin Rg MD SUBJECTIVE: The patient is sitting up in bed, reports coughing consistently at night. No headache, rhinitis, shortness of breath, chest pain, abdominal pain, nausea, vomiting, leg pain or diarrhea reported. OBJECTIVE: GENERAL: No acute distress. VITAL SIGNS: Blood pressure 107/56, pulse 65, temperature 98.1, oxygen saturation 98%. HEENT: Moist mucous membranes. Crowded airway. NECK: Supple. No JVD. LUNGS: Positive expiratory wheezing bilaterally. Positive rhonchi. CARDIOVASCULAR: S1, S2 audible. Positive murmur. ABDOMEN: Soft, nontender. No distension. No organomegaly. EXTREMITIES: Improving bilateral lower extremity edema and erythema. NEUROLOGIC: Awake, alert, verbal, follows commands. MEDICATIONS: Reviewed. Zithromax 500 mg, Tessalon Perles 100 mg 3 times a day, Lotrisone topically twice a day, Pulmicort 0.5 mg inhalation every 12 hours, topically daily, Lovenox 40 mg subcutaneously daily, Lasix 80 mg twice a day, Xopenex 0.63 mg inhalation twice a day, Solu-Medrol 20 mg every 12 hours, metolazone 5 mg daily, metoprolol tartrate 12.5 mg twice a day, Singulair 10 mg at bedtime, Protonix 40 mg daily, Lyrica 25 mg twice a day, [place] nasal spray every 3 hours, Aldactone 25 mg twice a day, vancomycin 750 mg every 12 hours. LABORATORY DATA: Reviewed. Sodium 135, potassium 4.1, chloride 98, carbon dioxide 33, anion gap 9, BUN 49, creatinine 1, GFR 54, random glucose 155, calcium 9.4, total bilirubin 2.6. AST 31, ALT 38, alkaline phosphatase 67, total protein 5.6, albumin 2.6, globulin 3.0, albumin-globulin ratio 0.9. DIAGNOSTIC DATA: Chest x-ray, right lower lobe infiltrate, small pleural effusion. IMPRESSION AND PLAN: Chronic obstructive lung disease, obstructive sleep apnea syndrome, cardiomyopathy, valvular heart disease, coronary artery disease, pulmonary hypertension, cryptogenic cirrhosis, portal hypertension, cellulitis with recurrent lower extremity edema, new infiltrate and effusion. We will order procalcitonin and labs for the morning. Continue Lasix p.o. 80 mg twice a day. We will start the patient on CPAP 6 cm, head of bed elevated 45 degrees. We will discontinue Zithromax and start the patient on Levaquin 500 mg p.o. daily. Continue deep venous thrombosis prophylaxis. Continue inhaled bronchodilators. Continue gastric prophylaxis. The patient should be sitting up with head of bed elevated while eating and remain sitting up for 1 hour or more after eating, sleep apnea precautions. This patient was seen and examined with Dr. Cantor. Discussed assessment and plan as described above. Thank you for this consult, we will follow with you. Alec Marie APN Pablo Cantor MD [facility]
--- NOTE | 2018-07-26 13:31 | CP.PCM.PN ---
Subjective - Date & Time of Evaluation Date of Evaluation: 07/26/18 Time of Evaluation: 13:28 - Subjective Subjective: Podiatry Progress Note: Dr. Garcia 78F patient seen and evaluated for bilateral lower extremity edema and erythema, resolving. Patient states that she feels well today and in NAD. She denies any acute events overnight. Patient states that she will be going home today. Denies N/V/F/CP. Objective - Vital Signs/Intake and Output Vital Signs (last 24 hours): Temp Pulse Resp BP Pulse Ox 98.1 F 65 18 110/60 98 07/26/18 06:00 07/26/18 06:00 07/26/18 06:00 07/26/18 09:38 07/26/18 06:00 Intake and Output: 07/26/18 07/26/18 06:59 18:59 Output Total 700 Balance -700 - Medications Medications: Current Medications Benzonatate (Tessalon Perles) 100 mg PO TID [facility] Last Admin: 07/26/18 09:37 Dose: 100 mg Betamethasone/Clotrimazole (Lotrisone) 0 gm TOP BID [facility] Last Admin: 07/26/18 09:42 Dose: 1 applic Budesonide (Pulmicort Respules) 0.5 mg IH [id number] [facility] Last Admin: 07/26/18 07:45 Dose: 0.5 mg Emollient Ointment (Vaseline Oint) 5 gm TOP DAILY PRN PRN Reason: Dry skin Enoxaparin Sodium (Lovenox) 40 mg SC DAILY [facility]; Protocol Last Admin: 07/26/18 09:38 Dose: 40 mg Furosemide (Lasix) 80 mg PO BID [facility] Last Admin: 07/26/18 09:38 Dose: 80 mg Vancomycin HCl (Vancomycin 750 Mg In Ns) 750 mg in 250 mls @ 167 mls/hr IVPB Q12H [facility]; Protocol Levalbuterol HCl (Xopenex) 0.63 mg IH BIDRESP [facility] Last Admin: 07/26/18 07:45 Dose: 0.63 mg Levofloxacin (Levaquin) 500 mg PO DAILY [facility]; Protocol Last Admin: 07/26/18 13:10 Dose: 500 mg Methylprednisolone (Solu-Medrol) 20 mg IVP Q12 [facility] Last Admin: 07/26/18 09:37 Dose: 20 mg Metolazone (Zaroxolyn) 5 mg PO DAILY [facility] Last Admin: 07/26/18 09:37 Dose: 5 mg Metoprolol Tartrate (Lopressor) 12.5 mg PO BID [facility] Last Admin: 07/26/18 09:37 Dose: 12.5 mg Montelukast Sodium (Singulair) 10 mg PO HS [facility] Last Admin: 07/25/18 22:14 Dose: 10 mg Pantoprazole Sodium (Protonix Ec Tab) 40 mg PO 0600 [facility] Last Admin: 07/26/18 05:18 Dose: 40 mg Pregabalin (Lyrica) 25 mg PO BID [facility] Last Admin: 07/26/18 09:42 Dose: 25 mg Sodium Chloride ([place] Nasal [place]) 1 ml NS Q3 [facility] Last Admin: 07/26/18 01:40 Dose: Not Given Spironolactone (Aldactone) 25 mg PO BID [facility] Last Admin: 07/26/18 09:37 Dose: 25 mg - Labs Labs: 07/24/18 07:15 07/26/18 06:30 - Constitutional Appears: Well, Non-toxic, No Acute Distress - Head Exam Head Exam: ATRAUMATIC, NORMOCEPHALIC - Extremities Exam Additional comments: B/L LE focused exam: Vasc: lightly palpable pedal pulses b/l secondary to edema, TG wnl, CFT < 3 sec to all digits, mild edema to b/l legs, resolving Ortho: mild pain to palpation of legs and feet b/l, MMT 4/5 in all compartments Neuro: Gross sensation intact, protective sensation diminished Derm: No open lesions, mild diffuse erythema noted to b/l lower extremities circ umfrentially, resolving, no fluctuance, no purulence, no drainage, no malodor, no weeping - Neurological Exam Neurological Exam: Alert, Awake, Oriented x3 - Psychiatric Exam Psychiatric exam: Normal Affect, Normal Mood Assessment and Plan - Assessment and Plan (Free Text) Assessment: 78F patient seen and evaluated for bilateral lower extremity edema and erythema, resolving Plan: Patient seen and examined with Dr. Garcia Chart, labs, vitals reviewed; afebrile, absent leukocytosis B/l foot x-rays ordered; soft tissue swelling, diffuse bilateral osseous demineralization LE US; no evidence of DVT Abx reccs per ID; continue Vancomycin day 8 and will continue to monitor clinical response - target 7-10 days of antibiotics but can switch to PO antibiotics Lotrisone cream to be applied to b/l lower extremities BID; erythema resolving Tubigrip applied to b/l lower extremities and patient instructed on their proper use Podiatry to sign off at this time, please reconsult as needed. Pending d/c patient to follow up in Dr. Garcia's office
--- NOTE | 2018-07-26 16:49 | PN ---
DATE: 07/26/2018 REASON FOR CONSULTATION AND FOLLOWUP: Cardiac evaluation, bilateral leg swelling, history of diabetes, hypertension, COPD, , admitted with leg swelling. SUBJECTIVE: The patient denies any chest pain, shortness of breath, or any palpitations and feels a little better. OBJECTIVE: GENERAL: Not in any apparent distress, complained of some coughing. This note is in addition to dictated by the nurse practitioner, Deisi Nair. LABORATORY DATA: WBC as of 07/24/2018 is 5.3, hemoglobin 11, and hematocrit 33.2. IMPRESSION: In summary, this is a 78-year-old female with past medical history significant for cirrhosis, history of coronary artery disease, status post percutaneous transluminal coronary angioplasty in 2008, history of refused transcatheter aortic valve replacement, history of thrombocytopenia, preserved left ventricular function, admitted with leg swelling. RECOMMENDATIONS: Continue spironolactone. Continue Lasix. Continue deep vein thrombosis prophylaxis. Continue treatment for chronic obstruct pulmonary disease. Continue on antibiotic. We will send for chest x-ray. The patient is complaining of coughing. We will follow with you. Chest x-ray is consistent with pneumonia. Since the patient is being followed up by , I will give her one dose of Zithromax until the patient is seen by rn circulating as well as ID. Thank you, Dr. Rg, for providing us the opportunity in taking care of the patient Maria D Sullivan. Pablo Guillermo MD
[2018-07-26 22:38] VITALS: RESP 20; TEMP 97.1; O2SAT 96
[2018-07-27] MEDS ORDERED: Vancomycin 750mg 750 MG/250 ML BAG IVPB SCH (01:00)
[2018-07-27] MEDS: Budesonide 0.5 mg/2 ml Inhal Susp UD IH SCH (07:22)
[2018-07-27] MEDS: Levalbuterol 0.63 MG/3 ML Inhal Soln UD IH SCH (07:22)
[2018-07-27 07:23] LABS: GRAN # 3.04 (1.4-6.5); GRAN % 80.9 % (50.0-68.0); HEMOGLOBIN 11.1 g/dL (12.0-16.0); LYMPH # 0.4 (1.2-3.4); LYMPH % 11.7 % (22.0-35.0); MEAN CELL VOLUME 95.3 fl (80.0-105.0); MEAN CORPUSCULAR HEMOGLOBIN 30.9 pg (25.0-35.0); MEAN CORPUSCULAR HGB CONC 32.5 g/dl (31.0-37.0); MEAN PLATELET VOLUME 9.7 fl (7.0-11.0); MONO # 0.3 (0.1-0.6); MONO % 7.4 % (1.0-6.0); RBC 3.59 10^6/uL (3.5-6.1); RED CELL DISTRIBUTION WIDTH 15.1 % (11.5-14.5); WHITE BLOOD COUNT 3.8 10^3/uL (4.5-11.0)
[2018-07-27 07:55] LABS: ALB/GLOB RATIO 0.9 (1.1-1.8); ALBUMIN 2.7 g/dL (3.0-4.8); CALCIUM 9.3 mg/dL (8.4-10.5)
--- NOTE | 2018-07-27 08:21 | PN ---
DATE: 07/26/2018 SUBJECTIVE: The patient is a 78-year-old female. The patient was seen and examined at the bedside on 07/26/2018. Looking comfortable. Did physical therapy. No fever. No chills. No cough. No shortness of breath. No nausea, vomiting, or diarrhea. No hematuria or hematochezia. PHYSICAL EXAMINATION: VITAL SIGNS: Blood pressure 110/50, pulse 65, temperature 98.3, oxygen saturation 98%. HEENT: Head: Normocephalic and atraumatic. Eyes: PERRLA. Extraocular muscles intact. Conjunctivae clear. Nose patent. Mucous membranes moist. NECK: Supple. No carotid bruit. No JVD or thyromegaly. LUNGS: Positive expiratory wheezing bilaterally. Positive rhonchi. HEART: S1 and S2 positive. ABDOMEN: Soft. Bowel sounds present. No organomegaly. EXTREMITIES: Bilateral lower extremity edema and erythema. SKIN: Has massive stasis dermatitis but getting better. NEUROLOGICAL: Awake and alert. Follows simple commands. MEDICATIONS: Azithromycin, Tessalon Perles, Lotrisone, Pulmicort, Lovenox, Xopenex, Solu-Medrol, metolazone, metoprolol, Singulair, Protonix, Lyrica, [place] nasal spray, Aldactone, vancomycin. LABORATORY DATA: Sodium 135, potassium 4.1, BUN 49, creatinine 1, glucose 155. AST 31, ALT 38. ASSESSMENT AND PLAN: The patient is a 78-year-old lady with multiple medical problems. Has chronic obstructive lung disease, obstructive sleep apnea syndrome, cardiomyopathy, valvular heart disease, coronary artery disease, pulmonary hypertension, cryptogenic cirrhosis, portal hypertension, history of pancytopenia, cellulitis of the lower extremities, new infiltrates and effusion. Continue Lasix. Continuous positive airway pressure. Pulmonary discontinued Zithromax and started the patient on Levaquin. Deep venous thrombosis and gastrointestinal prophylaxis. Physical Therapy is on the case, suggesting subacute rehabilitation. Length of time discussion was done with the patient. Repeat labs. Appreciated Infectious Disease, Pulmonary, and Cardiology input. We will follow up. Kristin Rg MD
[2018-07-27 10:30] VITALS: PULSE 68
[2018-07-27] MEDS: MethylPREDNISolone 40 mg Vial IVP SCH (10:32)
[2018-07-27] MEDS: metOLazone 5 MG TAB PO SCH (10:33)
[2018-07-27] MEDS: Enoxaparin 40 mg Syringe SC SCH (10:33)
[2018-07-27] MEDS: levoFLOXacin 500 MG TAB PO SCH (10:34)
[2018-07-27] MEDS: Clotrimazole/Betamethasone Cream(15 gm) TOP SCH (10:34)
[2018-07-27 10:43] VITALS: BP 113/61
--- NOTE | 2018-07-27 12:27 | PN ---
PULMONARY PROGRESS NOTE DATE: 07/27/2018 REFERRING PHYSICIAN: Dr. Kristin Rg. SUBJECTIVE: The patient is sitting up in bed. Reports that cough is much better. Reports not using CPAP machine last night. No headache, rhinitis, shortness of breath, chest pain, abdominal pain, nausea, vomiting, or leg pain reported. OBJECTIVE: GENERAL: No acute distress. VITAL SIGNS: Blood pressure 112/61, pulse 68, temperature 97.1, and oxygen saturation 96%. HEENT: Moist mucous membranes. Crowded airway. NECK: Supple. No JVD. LUNGS: Mild expiratory wheeze. Positive rhonchi. CARDIOVASCULAR: S1, S2 murmur present. ABDOMEN: Soft, nontender. No distension. No organomegaly. EXTREMITIES: Bilateral lower extremity edema and erythema. NEUROLOGIC: Awake, alert, and verbose. Follows simple commands. MEDICATIONS: Reviewed. Tessalon Perles 100 mg three times a day, Lotrisone topically twice a day, Pulmicort 0.5 mg inhalation every 12 hours, Vaseline ointment topically daily as needed to affected area, Lovenox 40 mg subcutaneous daily, Lasix 80 mg twice a day, Xopenex 0.63 mg inhalation twice a day, Levaquin 500 mg daily, Solu-Medrol 20 mg IV push every 12 hours, metolazone 5 mg daily, metoprolol tartrate 12.5 mg twice a day, Singulair 10 mg at bedtime, Protonix 40 mg daily, Lyrica 25 mg p.o. twice a day, sodium chloride 1 mL every 3 hours nasal spray, Aldactone 25 mg twice a day, and vancomycin 750 mg every 12 hours. LABORATORY DATA: Reviewed. WBC 3.8, RBC 3.59, hemoglobin 11.1, hematocrit 34.2, and platelets 63. Sodium 138, potassium 4.3, chloride 99, carbon dioxide 32, anion gap 11, BUN 54, creatinine 1.1, GFR 48, POC glucose 166, random glucose 161, calcium 9.3, total bilirubin 2.9, AST 35, ALT 40, alkaline phosphatase 76, total protein 5.8, albumin 2.7, globulin 3.1, and albumin-globulin ratio 0.9. IMPRESSION AND PLAN: Chronic obstructive lung disease, obstructive sleep apnea syndrome, cardiomyopathy, valvular heart disease, coronary artery disease, pulmonary hypertension, cryptogenic cirrhosis, portal hypertension, cellulitis, and recurrent lower extremity edema. Procalcitonin level is still pending. Discussed with the patient in depth, continuous positive airway pressure machine. The patient reports that she will try to use continuous positive airway pressure machine tonight. Sleep apnea precautions. Head of bed elevated at 45 degrees. The patient should have head of bed elevated and remain sitting up with head of bed elevated for 1 hour or more after eating. Continue inhaled bronchodilators, continue gastric prophylaxis. Continue pulmonary toileting. The patient would benefit from out of bed to chair. Continue antibiotic therapy. This patient was seen and examined with Dr. Cantor. Discussed assessment and plan as described above. Thank you for this consult. We will follow with you. Alec PrudenceKATHY Pablo Cantor MD [facility]
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
--- NOTE | 2018-07-28 03:47 | PN ---
DATE: 07/27/2018 REASON FOR CONSULTATION: Followup, cardiac evaluation, bilateral leg swelling, history of diabetes, hypertension, hyperlipidemia, AF, admitted with leg swelling. SUBJECTIVE: The patient denied any chest pain or shortness of breath or any palpitations. . PHYSICAL EXAMINATION: VITAL SIGNS: Temperature afebrile, heart rate 68, blood pressure 102/61. HEENT: PERRLA. Extraocular muscles are intact. NECK: Supple. No carotid bruits or thyromegaly. CHEST: Clear to auscultation. HEART: S1 and S2, regular. ABDOMEN: Soft. EXTREMITIES: Clubbing and cyanosis negative. LABORATORY DATA: Blood work as follows: WBC 3.8, hemoglobin 8.1, hematocrit 34.2, and platelet count 63. Chemistry showed sodium 130, potassium 4.3, chloride 99, carbon dioxide 32, anion gap 11, BUN 54, creatinine 1.1, total protein 5.8, albumin 2.7. IMPRESSION: A 78-year-old female with past medical history significant for coronary artery disease, status post percutaneous transluminal coronary angioplasty in 2008, history of severe aortic stenosis, refused transcatheter aortic valve replacement, history of cryptogenic cirrhosis, history of thrombocytopenia, congestive heart failure with diastolic dysfunction, leg edema, frequent history of nosebleed. RECOMMENDATIONS: Continue spironolactone. Continue Lasix. Continue DVT prophylaxis. For cellulitis of the lower extremities, continue antibiotics. Yesterday, chest x-ray was done, right lower lobe infiltrate, one dose of azithromycin given. Further recommendation as per ID and Pulmonary. We will follow with you. Overall, the patient's clinical long-term prognosis is extremely guarded with underlying comorbidity. Pablo Guillermo MD
== END 2018-07-27 15:57 | DRG 603 ==
LOC: ED 18:08 → ERH 21:59 → 2RNO 07-20 00:21 → 5RNO 07-23 15:20
PROVIDERS: ADMIT Internal Medicine; ATTEND Internal Medicine
DX: L03.116 Cellulitis of left lower limb (principal); I42.9 Cardiomyopathy, unspecified; K76.6 Portal hypertension; E44.0 Moderate protein-calorie malnutrition; M48.54XA Collapsed vertebra, not elsewhere classified, thoracic region, initial encounter for fracture; I13.0 Hypertensive heart and chronic kidney disease with heart failure and stage 1 through stage 4 chronic kidney disease, or unspecified chronic kidney disease; I50.32 Chronic diastolic (congestive) heart failure; I50.810 Right heart failure, unspecified; L03.115 Cellulitis of right lower limb; I35.0 Nonrheumatic aortic (valve) stenosis; I89.0 Lymphedema, not elsewhere classified; I87.8 Other specified disorders of veins; K74.69 Other cirrhosis of liver; J44.9 Chronic obstructive pulmonary disease, unspecified; I25.10 Atherosclerotic heart disease of native coronary artery without angina pectoris; K55.20 Angiodysplasia of colon without hemorrhage; G47.33 Obstructive sleep apnea (adult) (pediatric); I27.29 Other secondary pulmonary hypertension; F32.9 Major depressive disorder, single episode, unspecified; N18.9 Chronic kidney disease, unspecified; D69.6 Thrombocytopenia, unspecified; M54.17 Radiculopathy, lumbosacral region; Z87.891 Personal history of nicotine dependence; Z91.19 Patient's noncompliance with other medical treatment and regimen; Z68.28 Body mass index [BMI] 28.0-28.9, adult; Z95.5 Presence of coronary angioplasty implant and graft

== ENCOUNTER 2018-08-04 20:57 | Inpatient (IN) | payer MEDICARE ==
[2018-08-04 20:58] VITALS: PULSE 103
[2018-08-04 22:02] LABS: EOS # 0.1 (0.0-0.7); EOS % 0.7 % (1.5-5.0); GRAN # 8.54 (1.4-6.5); GRAN % 76.8 % (50.0-68.0); HEMOGLOBIN 13.2 g/dL (12.0-16.0); LYMPH # 1.2 (1.2-3.4); MEAN CELL VOLUME 95.5 fl (80.0-105.0); MEAN CORPUSCULAR HEMOGLOBIN 31.2 pg (25.0-35.0); MEAN CORPUSCULAR HGB CONC 32.7 g/dl (31.0-37.0); MEAN PLATELET VOLUME 10.1 fl (7.0-11.0); MONO # 1.3 (0.1-0.6); MONO % 11.5 % (1.0-6.0); RBC 4.23 10^6/uL (3.5-6.1); RED CELL DISTRIBUTION WIDTH 15.5 % (11.5-14.5); WHITE BLOOD COUNT 11.1 10^3/uL (4.5-11.0)
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
[2018-08-04 22:03] LABS: INR 1.42; PROTHROMBIN TIME 16.3 SECONDS (9.4-12.5)
[2018-08-04 22:14] LABS: ALBUMIN 3.2 g/dL (3.0-4.8); CALCIUM 9.8 mg/dL (8.4-10.5)
[2018-08-04] MEDS ORDERED: Potassium Chloride 40 mEq/30 ml LIQ UD PO STA (22:14)
[2018-08-04] MEDS ORDERED: Sodium Chloride 0.9% 1,000 ML IV STA (22:25)
[2018-08-04 22:30] LABS: TROPONIN I 0.29 ng/mL
[2018-08-04] MEDS ORDERED: Potassium Chloride 40 mEq/30 ml LIQ UD PO ONE (23:15)
[2018-08-04] MEDS ORDERED: Iodixanol 320 MG/ML 100 ML BOTTLE IV ONE (23:42)
[2018-08-05] MEDS: Dextrose 5%/0.9% NS 1,000 ML IV SCH ×2 (01:28→14:04)
[2018-08-05 03:42] VITALS: BMI 20.9
[2018-08-05 03:51] LABS: PH,URINE 6.5 (4.7-8.0); URINE BILIRUBIN NEGATIVE (NEGATIVE); URINE BLOOD NEGATIVE (NEGATIVE); URINE GLUCOSE (UA) NEGATIVE (NEGATIVE); URINE LEUKOCYTE ESTERASE SMALL Leu/uL (NEGATIVE); URINE PROTEIN NEGATIVE mg/dL (<30 mg/dL); URINE UROBILINOGEN 0.2 E.U./dL (<1 E.U./dL)
[2018-08-05 03:55] LABS: URINE APPEARANCE CLEAR (CLEAR); URINE COLOR YELLOW (YELLOW)
[2018-08-05 04:07] LABS: URINE BACTERIA MOD /hpf; URINE RBC 0 - 2 /hpf (0-2)
[2018-08-05 05:49] LABS: BLOOD UREA NITROGEN 55 mg/dL (7-21); CALCIUM 9.3 mg/dL (8.4-10.5); GFR NON-AFRICAN AMERICAN 54
[2018-08-05 06:06] LABS: TROPONIN I 0.21 ng/mL
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
--- NOTE | 2018-08-05 09:48 | RAD ---
Date of service: 08/04/2018 HISTORY: weak COMPARISON: Chest radiograph dated 07/26/2018. FINDINGS: LUNGS: Nonspecific density just inferior to the medial right clavicle. Stable chronic prominence of the bilateral interstitial markings with superimposed pulmonary vascular congestion. Left basilar atelectasis. PLEURA: No significant pleural effusion identified, no pneumothorax apparent. CARDIOVASCULAR: Aortic atherosclerotic calcifications. Cardiomediastinal silhouette stably enlarged. OSSEOUS STRUCTURES: Unchanged. VISUALIZED UPPER ABDOMEN: Normal. OTHER FINDINGS: None. IMPRESSION: Nonspecific density in the right hemithorax just inferior to the medial portion of the right clavicle. Pulmonary vascular congestion. Left basilar atelectasis.
[2018-08-05] MEDS ORDERED: Enoxaparin 60 mg Syringe SC STA (11:27)
[2018-08-05] MEDS: Aspirin 325 mg EC Tablets PO STA ×2 (11:45→14:32)
--- NOTE | 2018-08-05 12:14 | CT ---
Date of service: 08/05/2018 PROCEDURE: CT Abdomen and Pelvis with contrast HISTORY: pain COMPARISON: CT scan of the abdomen pelvis dated 11/20/2017. TECHNIQUE: Contrast dose: 95 mL Visipaque 320 Radiation dose: Total exam DLP = 324.42 mGy-cm. This CT exam was performed using one or more of the following dose reduction techniques: Automated exposure control, adjustment of the mA and/or kV according to patient size, and/or use of iterative reconstruction technique. FINDINGS: LOWER THORAX: Unremarkable. LIVER: Hepatic cirrhosis. No gross lesion or ductal dilatation. GALLBLADDER AND BILE DUCTS: Unremarkable. PANCREAS: Unremarkable. No gross lesion or ductal dilatation. SPLEEN: Unremarkable. ADRENALS: Nodular right adrenal thickening. No mass. KIDNEYS AND URETERS: Unremarkable. No hydronephrosis. No solid mass. VASCULATURE: Focal thrombus within the main portal vein (series 3, images 40-42). Marked gastrorenal shunt with or without hepatic gastrohepatic varices. No aortic aneurysm. Dilated left gonadal vein. Aortic atherosclerotic calcifications. BOWEL: Unremarkable. No obstruction. No gross mural thickening. APPENDIX: No findings to suggest acute appendicitis. PERITONEUM: Unremarkable. No free fluid. No free air. LYMPH NODES: Unremarkable. No enlarged lymph nodes. BLADDER: Unremarkable. REPRODUCTIVE: Unremarkable. BONES: Old left pubic rami fractures. Multilevel spinal degenerative changes. Chronic compression deformities of T12, L2, L3 and L4. No acute fracture. OTHER FINDINGS: None. IMPRESSION: Hepatic cirrhosis. Focal partial thrombus within the main portal vein. Prominent gastric renal shunt with without gastrohepatic varices. Left-sided pelvic congestion. Additional stable findings as above.
--- NOTE | 2018-08-05 12:33 | CP.PCM.CON ---
History of Present Illness - History of Present Illness History of Present Illness: RENAL: hypokalemia 78 year old female who was brought to the ER from [place] for hypokalemia and weakness. She was recently in hospital for cellulitis and discharged to [place]. She has been receiving diuretics there - at least 40 mg of lasix daily (whole medication list from [place] was not available in chart only one page to review). Not clear if she was receiving K supplements or not. She is unaware of this being a chronic issue. She denies n/v. She feels improved today. ros: a full detailed ros is negative except as in my hpi pmh: CHF DM HTN famhx: no esrd sochx: no active smoke etoh of ivdu meds as below all as below pe: vs as below gen: nad sclera: anicteric op: clear neck: supple cv: +S1+s2 no rub lungs: cta ant abd: soft nt nd no organomegaly ext: no edema neuro: following command psych: flat skin redness b/l lower extremities imp: hypokalemia/ chf / alkalosis/ anemia plan: k issue resolved rather quickly w/ supplementation suggesting no significant continued active losses. On review of labs does not appear to be a chronic issue - rather suspect related to diuretics. given her volume status at least as of this point looking rather euvolemic w/ a contraction alklaosis - would recc reduction of diuretics - from bid to daily - but will defer to cardiology who know her better will monitor k cannot assess for hyperaldosteronism as she is on aldactone at this point but given it has not been a chronic issue would not hold to assess for it. thank you for this interesting consult Past Patient History - Infectious Disease Hx of Infectious Diseases: None - Tetanus Immunizations Tetanus Immunization: Up to Date - Past Medical History & Family History Past Medical History?: Yes - Past Social History Smoking Status: Never Smoked - CARDIAC Hx Cardiac Disorders: Yes Hx Congestive Heart Failure: Yes - PULMONARY Hx Respiratory Disorders: Yes Hx Chronic Obstructive Pulmonary Disease (COPD): Yes - NEUROLOGICAL Hx Neurological Disorder: Yes Hx Dementia: Yes - HEENT Hx HEENT Problems: Yes Hx Cataracts: Yes - RENAL Hx Chronic Kidney Disease: Yes Other/Comment: urinary bladder infection - ENDOCRINE/METABOLIC Hx Diabetes Mellitus Type 2: Yes - HEMATOLOGICAL/ONCOLOGICAL Hx Blood Disorders: Yes Hx Anemia: Yes - INTEGUMENTARY Hx Dermatological Problems: Yes Other/Comment: cellulitis BLE - MUSCULOSKELETAL/RHEUMATOLOGICAL Hx Musculoskeletal Disorders: Yes Hx Falls: Yes Hx Fractures: Yes - GASTROINTESTINAL Hx Gastrointestinal Disorders: Yes Other/Comment: gastritis - GENITOURINARY/GYNECOLOGICAL Hx Incontinence: Yes - PSYCHIATRIC Hx Psychophysiologic Disorder: Yes Hx Depression: Yes Hx Substance Use: No - SURGICAL HISTORY Hx Surgeries: Yes Hx Cardiac Catheterization: Yes Hx Cholecystectomy: Yes Hx Coronary Stent: Yes - ANESTHESIA Hx Anesthesia: Yes Meds Allergies/Adverse Reactions: Allergies Allergy/AdvReac Type Severity Reaction Status Date / Time antibiotic Allergy URTICARIA Uncoded 05/21/18 15:55 - Medications Medications: Current Medications Aspirin (Ecotrin) 81 mg PO DAILY [facility] Furosemide (Lasix) 80 mg PO BID [facility] Dextrose/Sodium Chloride (Dextrose 5%/0.9% Ns 1000 Ml) 1,000 mls @ 75 mls/hr IV .[id number] [facility] Last Admin: 08/05/18 01:28 Dose: 75 mls/hr Metoprolol Tartrate (Lopressor) 12.5 mg PO BID [facility] Spironolactone (Aldactone) 25 mg PO BID [facility] Last Admin: 08/05/18 10:58 Dose: 25 mg Results - Vital Signs Recent Vital Signs: Last Vital Signs Temp 97.8 F 08/05/18 06:00 Pulse 63 08/05/18 06:00 Resp 19 08/05/18 06:00 BP 118/56 L 08/05/18 06:00 Pulse Ox 94 L 08/05/18 06:00 - Labs Result Diagrams: 08/04/18 21:45 08/05/18 05:20 Labs: Laboratory Results - last 24 hr 08/04/18 08/04/18 08/04/18 21:45 21:45 21:45 WBC 11.1 H D RBC 4.23 Hgb 13.2 D Hct 40.4 MCV 95.5 MCH 31.2 MCHC 32.7 RDW 15.5 H Plt Count 69 L MPV 10.1 Gran % 76.8 H Lymph % (Auto) 11.0 L [place] % (Auto) 11.5 H Eos % (Auto) 0.7 L Baso % (Auto) 0.0 Gran # 8.54 H Lymph # (Auto) 1.2 [place] # (Auto) 1.3 H Eos # (Auto) 0.1 Baso # (Auto) 0.00 PT 16.3 H INR 1.42 APTT 36.0 Sodium 138 Potassium 2.8 L* D Chloride 95 L Carbon Dioxide 40 H D Anion Gap 7 L BUN 62 H Creatinine 1.1 Est GFR ( Amer) 58 Est GFR (Non-Af Amer) 48 Random Glucose 120 H Calcium 9.8 Magnesium 2.5 H Total Bilirubin 8.2 H AST 63 H D ALT 47 Alkaline Phosphatase 79 Lactate Dehydrogenase 880 H Total Creatine Kinase 40 Troponin I 0.29 H* D NT-Pro-B Natriuret Pep 5060 H Total Protein 6.6 Albumin 3.2 Globulin 3.3 Albumin/Globulin Ratio 1.0 L Urine Color Urine Appearance Urine pH Ur Specific [place] Urine Protein Urine Glucose (UA) Urine Ketones Urine Blood Urine Nitrate Urine Bilirubin Urine Urobilinogen Ur Leukocyte Esterase Urine RBC Urine WBC Ur Epithelial Cells Urine Bacteria 08/05/18 08/05/18 03:17 05:20 WBC RBC Hgb Hct MCV MCH MCHC RDW Plt Count MPV Gran % Lymph % (Auto) [place] % (Auto) Eos % (Auto) Baso % (Auto) Gran # Lymph # (Auto) [place] # (Auto) Eos # (Auto) Baso # (Auto) PT INR APTT Sodium 140 Potassium 4.4 Chloride 103 Carbon Dioxide 36 H Anion Gap 5 L BUN 55 H Creatinine 1.0 Est GFR ( Amer) > 60 Est GFR (Non-Af Amer) 54 Random Glucose 141 H Calcium 9.3 Magnesium 2.4 H Total Bilirubin AST ALT Alkaline Phosphatase Lactate Dehydrogenase Total Creatine Kinase Troponin I 0.21 H* D NT-Pro-B Natriuret Pep Total Protein Albumin Globulin Albumin/Globulin Ratio Urine Color Yellow Urine Appearance Clear Urine pH 6.5 Ur Specific [place] 1.010 Urine Protein Negative Urine Glucose (UA) Negative Urine Ketones Negative Urine Blood Negative Urine Nitrate Negative Urine Bilirubin Negative Urine Urobilinogen 0.2 Ur Leukocyte Esterase Small H Urine RBC 0 - 2 Urine WBC 5 - 10 H Ur Epithelial Cells 6 - 8 H Urine Bacteria Mod
[2018-08-05] MEDS ORDERED: Gadodiamide 287 MG/ML VIAL (15ML) IV ONE (15:57)
[2018-08-05] MEDS: POLYETHYLENE GLYCOL 3350 17 GM/Dose PACKET PO SCH (16:12)
[2018-08-05] MEDS ORDERED: Bisacodyl 5mg EC Tab PO ONE (16:45)
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
--- NOTE | 2018-08-05 19:48 | CARD ---
APPROVED REPORT Date of service: 08/04/2018 EKG Measurement Heart [id number] <Conclusion> Sinus rhythm with premature atrial complexes Left axis deviation Right bundle branch block Voltage criteria for left ventricular hypertrophy Abnormal ECG
[2018-08-05] MEDS: Levalbuterol 0.63 MG/3 ML Inhal Soln UD IH SCH (19:52)
--- NOTE | 2018-08-05 20:35 | CARD ---
APPROVED REPORT Date of service: 08/05/2018 EKG Measurement Heart [id number] <Conclusion> Normal sinus rhythm Left axis deviation Right bundle branch block Moderate voltage criteria for LVH, may be normal variant Abnormal ECG
--- NOTE | 2018-08-05 22:52 | CON ---
DATE: 08/05/2018 CARDIOLOGY CONSULTATION REASON FOR CONSULTATION: Cardiac evaluation, admitted with generalized weakness, severe hypokalemia, troponin positive, severe aortic stenosis. This note is addition to dictation by nurse practitioner, Deisi Nair. HISTORY OF PRESENT ILLNESS: The patient denies any chest pain, denies any shortness of breath, denies any palpitation. LABORATORY DATA: Admitting blood work; WBC 11.1, hematocrit 40.4, hemoglobin 13.2, platelet count 69. Chemistry shows sodium , potassium 2.8, chloride 95, carbon dioxide 19, anion gap of 7, BUN 62, creatinine of 1.1. Troponin 0.29 and 0.21. BNP 5060. IMPRESSION: A 78-year-old female brought from the [facility] with generalized weakness, history of percutaneous transluminal coronary angioplasty of right coronary artery in 2008, history of cryptogenic cirrhosis, history of urinary tract infection, history of severe thrombocytopenia, history of recurrent nosebleed on aspirin, off aspirin, severe aortic stenosis, refused transcatheter aortic valve replacement in the past, admitted with elevated BNP, severe hypokalemia with a potassium of 2.8 and borderline troponin positive with a creatinine clearance of 40 mL an hour. RECOMMENDATIONS: Supplement aggressively potassium. Continue beta-kirby. Continue Lasix. Continue spironolactone. Follow up serial CPK, troponin. The patient bleeds from the nose on aspirin. We will give 1 dose of aspirin, 1 dose of Lovenox and monitor H and H, we will follow with you. The patient is not a candidate for a long-term aspirin because of bleed. We will give stat aspirin 325 and Lovenox one dose 60. Monitor electrolytes, monitor platelet, we will follow with you. If the patient can tolerate aspirin, we will start 81 mg from tomorrow. History of cirrhosis and history of thrombocytopenia in the past, could not tolerate aspirin because of nosebleed. We will follow with you. Most likely his borderline troponin is probably secondary to underlying coronary artery disease as well as because of congestive heart failure . The patient denies any chest pain. Thank you Dr. Rg, for providing us the opportunity in taking care of the patient, Maria D Sullivan. Pablo Guillermo MD
[2018-08-06] MEDS: Levalbuterol 0.63 MG/3 ML Inhal Soln UD IH SCH ×3 (07:35→19:32)
[2018-08-06 07:59] LABS: HEMOGLOBIN 11.6 g/dL (12.0-16.0); MEAN CELL VOLUME 95.8 fl (80.0-105.0); MEAN CORPUSCULAR HEMOGLOBIN 30.6 pg (25.0-35.0); RBC 3.79 10^6/uL (3.5-6.1); RED CELL DISTRIBUTION WIDTH 15.8 % (11.5-14.5); WHITE BLOOD COUNT 9.2 10^3/uL (4.5-11.0)
[2018-08-06 08:05] LABS: INR 1.37; PROTHROMBIN TIME 15.8 SECONDS (9.4-12.5)
[2018-08-06 08:08] LABS: PLATELET COUNT 44 10^3/uL (120.0-450.0)
[2018-08-06 08:26] LABS: ALBUMIN 2.6 g/dL (3.0-4.8); ALT/SGPT 53 U/L (7-56); AST/SGOT 70 U/L (14-36); BLOOD UREA NITROGEN 45 mg/dL (7-21); CALCIUM 9.4 mg/dL (8.4-10.5); GFR NON-AFRICAN AMERICAN 54
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
--- NOTE | 2018-08-06 09:05 | CP.PCM.PN ---
Subjective - Date & Time of Evaluation Date of Evaluation: 08/06/18 Time of Evaluation: 09:03 - Subjective Subjective: RENAL s: seen and examined wants a nasal medication pe: vs as below gen: nad sclera: anicteric op: clear neck: supple cv: +S1+s2 no rub lungs: cta ant abd: soft nt nd no organomegaly ext: no edema neuro: following command psych: flat skin redness b/l lower extremities imp: hypokalemia/ chf / alkalosis/ anemia plan: k remains stable On review of labs does not appear to be a chronic issue - rather suspect related to diuretics. given her volume status at least as of this point looking rather euvolemic w/ a contraction alklaosis (though would need abg to evaluated if she has chronic co2 retention w/ compensatory rise in bicarb)- would recc reduction of diuretics - from bid to daily - but will defer to cardiology/primary who know her better will monitor k Objective - Vital Signs/Intake and Output Vital Signs (last 24 hours): Temp Pulse Resp BP Pulse Ox 97.8 F 81 19 119/59 L 95 08/06/18 06:00 08/06/18 06:00 08/06/18 06:00 08/06/18 06:00 08/06/18 06:00 Intake and Output: 08/06/18 08/06/18 06:59 18:59 Intake Total 2050 Output Total 800 Balance 1250 - Medications Medications: Current Medications Aspirin (Ecotrin) 81 mg PO DAILY [facility] Furosemide (Lasix) 80 mg PO BID [facility] Last Admin: 08/05/18 18:10 Dose: 80 mg Levalbuterol HCl (Xopenex) 0.63 mg IH TIDRESP [facility] Last Admin: 08/06/18 07:35 Dose: 0.63 mg Metoprolol Tartrate (Lopressor) 12.5 mg PO BID [facility] Last Admin: 08/05/18 18:11 Dose: 12.5 mg Pantoprazole Sodium (Protonix Inj) 40 mg IVP DAILY [facility] Polyethylene Glycol (Miralax) 17 gm PO DAILY [facility] Last Admin: 08/05/18 16:12 Dose: 17 gm Pregabalin (Lyrica) 50 mg PO Q12 [facility] Last Admin: 08/05/18 22:23 Dose: 50 mg Sodium Chloride ([place] Nasal [place]) 0 ml NS TID PRN PRN Reason: Nasal congestion Last Admin: 08/06/18 08:28 Dose: 1 spr Spironolactone (Aldactone) 25 mg PO BID [facility] Last Admin: 08/05/18 18:11 Dose: 25 mg - Labs Labs: 08/06/18 07:15 08/06/18 07:15 PT 15.8 SECONDS (9.4-12.5) H 08/06/18 07:15 INR 1.37 08/06/18 07:15 APTT 36.0 Seconds (25.1-36.5) 08/04/18 21:45
[2018-08-06] MEDS ORDERED: Enoxaparin 40 mg Syringe SC SCH (10:00)
[2018-08-06] MEDS: POLYETHYLENE GLYCOL 3350 17 GM/Dose PACKET PO SCH (10:51)
--- NOTE | 2018-08-06 11:50 | CP.PCM.PN ---
<Hakan Webb - Last Filed: 08/06/18 14:33> Subjective - Date & Time of Evaluation Date of Evaluation: 08/06/18 Time of Evaluation: 11:49 - Subjective Subjective: Patient is feeling well. No complaints. Tolerating diet. She had imaging test today, pending results. Objective - Vital Signs/Intake and Output Vital Signs (last 24 hours): Temp Pulse Resp BP Pulse Ox 97.8 F 79 19 100/47 L 95 08/06/18 06:00 08/06/18 10:49 08/06/18 06:00 08/06/18 10:49 08/06/18 06:00 Intake and Output: 08/06/18 08/06/18 06:59 18:59 Intake Total 2050 Output Total 800 Balance 1250 - Medications Medications: Current Medications Furosemide (Lasix) 80 mg PO BID [facility] Last Admin: 08/06/18 10:49 Dose: 80 mg Levalbuterol HCl (Xopenex) 0.63 mg IH TIDRESP [facility] Last Admin: 08/06/18 07:35 Dose: 0.63 mg Metoprolol Tartrate (Lopressor) 12.5 mg PO BID [facility] Last Admin: 08/06/18 10:49 Dose: 12.5 mg Pantoprazole Sodium (Protonix Ec Tab) 40 mg PO ACB [facility] Polyethylene Glycol (Miralax) 17 gm PO DAILY [facility] Last Admin: 08/06/18 10:51 Dose: 17 gm Pregabalin (Lyrica) 50 mg PO Q12 [facility] Last Admin: 08/06/18 10:49 Dose: 50 mg Sodium Chloride ([place] Nasal [place]) 0 ml NS TID PRN PRN Reason: Nasal congestion Last Admin: 08/06/18 08:28 Dose: 1 spr Spironolactone (Aldactone) 25 mg PO BID [facility] Last Admin: 08/06/18 10:49 Dose: 25 mg - Labs Labs: 08/06/18 07:15 08/06/18 07:15 PT 15.8 SECONDS (9.4-12.5) H 08/06/18 07:15 INR 1.37 08/06/18 07:15 APTT 36.0 Seconds (25.1-36.5) 08/04/18 21:45 - Constitutional Appears: Well, Non-toxic, Chronically Ill - Head Exam Head Exam: ATRAUMATIC. absent: NORMAL INSPECTION - Eye Exam Eye Exam: EOMI, Normal appearance - ENT Exam ENT Exam: Mucous Membranes Moist, Normal Exam - Respiratory Exam Respiratory Exam: Clear to Ausculation Bilateral, NORMAL BREATHING PATTERN - Cardiovascular Exam Cardiovascular Exam: REGULAR RHYTHM, +S1, +S2 - GI/Abdominal Exam GI & Abdominal Exam: Distended, Soft, Normal Bowel Sounds. absent: Tenderness - Extremities Exam Extremities Exam: Normal Capillary Refill, Normal Inspection - Neurological Exam Neurological Exam: Alert, Awake, Oriented x3 - Psychiatric Exam Psychiatric exam: Normal Affect, Normal Mood - Skin Skin Exam: Dry, Normal Color Assessment and Plan - Assessment and Plan (Free Text) Assessment: 78 yo WF with multiple comorbities including cirrhosis, CAD, Pulm HTN, COPD, Aortic Stenosis sent in from senior living for weakness and hypokalemia. 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 Suspect Cardiac or PAULA. Increased bilirubin is concerning from 2s to 8.2 on admission, INR 1.42 on admission with MELD-Na 20. - PVT: Seen on admission CT, unclear if acute or chronic - EV: Last EGD 4 yrs ago, unknown results - HCC: No masses seen on admission CT - Ascites: On Spironolactone and Furoseide though not in typical ratio # CHF, CAD, Pulm HTN, Right sided CHF, Severe # COPD # H/o Colonic AVMs Plan: - Abd Doppler to further eval PVT - MRCP with Abd MRI w/o contrast to eval inc bili - Bilirubin improving. Frationated pending. - Monitor CMP, CBC, INR daily - Check HFE testing - Low Na diet - Miralax - Cont diuretics Pt seen and examined with Dr. Freitas; please see attestation for further recs/changes <Stewart Freitas V - Last Filed: 08/07/18 23:29> Objective - Vital Signs/Intake and Output Vital Signs (last 24 hours): Temp Pulse Resp BP Pulse Ox 98.6 F 70 20 108/86 100 08/07/18 18:00 08/07/18 18:00 08/07/18 18:00 08/07/18 20:11 08/07/18 06:00 Intake and Output: 08/07/18 08/08/18 18:59 06:59 Intake Total 720 Balance 720 - Medications Medications: Current Medications Calcium/Vitamin D (Oscal-D 250 Mg-125 Units Tab) 1 tab PO DAILY [facility] Furosemide (Lasix) 80 mg PO BID [facility] Last Admin: 08/07/18 20:11 Dose: 80 mg Levalbuterol HCl (Xopenex) 0.63 mg IH TIDRESP [facility] Last Admin: 08/07/18 20:04 Dose: 0.63 mg Lidocaine (Lidoderm) 1 ea TD DAILY [facility] Last Admin: 08/07/18 10:21 Dose: 1 ea Metoprolol Tartrate (Lopressor) 12.5 mg PO BID [facility] Last Admin: 08/07/18 17:10 Dose: 12.5 mg Pantoprazole Sodium (Protonix Ec Tab) 40 mg PO ACB [facility] Last Admin: 08/07/18 07:50 Dose: 40 mg Polyethylene Glycol (Miralax) 17 gm PO DAILY [facility] Last Admin: 08/07/18 10:22 Dose: 17 gm Pregabalin (Lyrica) 50 mg PO Q12 [facility] Last Admin: 08/07/18 21:58 Dose: 50 mg Sodium Chloride ([place] Nasal [place]) 0 ml NS TID PRN PRN Reason: Nasal congestion Last Admin: 08/06/18 15:40 Dose: 1 spr Spironolactone (Aldactone) 25 mg PO BID [facility] Last Admin: 08/07/18 17:10 Dose: 25 mg - Labs Labs: 08/07/18 06:45 08/07/18 06:45 PT 14.1 SECONDS (9.4-12.5) H 08/07/18 06:45 INR 1.22 08/07/18 06:45 APTT 36.0 Seconds (25.1-36.5) 08/04/18 21:45 Attending/Attestation - Attestation I have personally seen and examined this patient.: Yes I have fully participated in the care of the patient.: Yes I have reviewed all pertinent clinical information, including history, physical exam and plan: Yes Notes (Text): This is an addendum to GI consult report dictated by the GI Fellow. The patient was seen and examined earlier. Medical records, lab studies, imagings were reviewed. Last 24 hours events reviewed. Agreed with the above treatment plan as outlined in GI Fellow 's notes with the addition of the following decompensated cirrhosis Elevated total bilirubin CHF mainly right ventricular dysfunction elevated RVSP requested hemochromatosis gene ting Review of the old records 08/07/18 23:28
--- NOTE | 2018-08-06 12:16 | US ---
PROCEDURE: Portal vein duplex ultrasound. CLINICAL HISTORY: Cirrhosis. Deteriorating liver function. Evaluate for portal vein thrombosis. PHYSICIAN(S): Praveen Augustine M.D. FINDINGS: The extrahepatic portal vein is normal in appearance with hepatopetal flow. No thrombus is appreciated. The hepatic artery is prominent and patent. The central patent veins are patent. The hepatic parenchyma is heterogeneous. No obvious mass is seen on these limited images. The spleen is enlarged. Varices are noted in the splenic hilum. No ascites is present. IMPRESSION: 1. Patent portal vein with hepatopetal flow.
--- NOTE | 2018-08-06 12:40 | PN ---
DATE: 08/06/2018 PULMONARY PROGRESS NOTE REFERRING PHYSICIAN: Kristin Rg MD SUBJECTIVE: The patient is lying in bed. Head of bed elevated. No acute distress. Reports feeling little bit better this morning. No headache, rhinitis, cough, shortness of breath, chest pain, abdominal pain, nausea, vomiting, diarrhea, leg pain or leg swelling reported. OBJECTIVE: GENERAL: No acute distress. VITAL SIGNS: Blood pressure 119/59, pulse 81, temperature 97.8, and oxygen saturation 95%. HEENT: Small oral cavity. Moist mucous membranes. NECK: Supple. No JVD. LUNGS: Few crackles at bases. CARDIOVASCULAR: S1 and S2, positive murmur. ABDOMEN: Soft and nontender. No distention. No organomegaly. EXTREMITIES: Does have bilateral lower extremity edema. NEUROLOGIC: Awake, alert, and verbal. Follows commands. MEDICATIONS: Reviewed. Lasix 80 mg twice a day, Xopenex 0.6 mg three times a day, Lopressor 12.5 mg twice a day, Protonix 40 mg daily, MiraLax 17 g daily, Lyrica 50 mg every 12 hours, [place] nasal spray three times a day p.r.n., spironolactone 25 mg twice a day. LABORATORY DATA: Reviewed. WBC 9.2, RBC 3.79, hemoglobin 11.6, hematocrit 36.3, and platelets 44. PT 15.8. INR 1.37. Sodium 134, potassium 4.1, chloride 95, carbon dioxide 37, anion gap 6, BUN 45, creatinine 1, GFR 54, random glucose 104, calcium 9.4, total bilirubin 5.7, AST 70, ALT 53, alkaline phosphatase 72, ammonia 31, total protein 5.3, albumin 2.6, globulin 2.7, and albumin-globulin ratio 1. Urine culture preliminary gram negative rods. IMPRESSION AND PLAN: Chronic obstructive lung disease, suspected sleep apnea syndrome, cardiomyopathy, severe valvular heart disease, coronary artery disease, pulmonary hypertension, cryptogenic cirrhotic liver disease, portal thrombus, hypertension, history of lower extremity cellulitis, malnutrition, history of esophageal, gastric and duodenal ulcers. Continue SCDs to bilateral lower extremities for deep vein thrombosis prophylaxis, inhaled bronchodilators, sleep apnea precaution, keep head of bed elevated at 45 degrees. The patient presently refuses to use CPAP machine. This patient was seen and examined with Dr. Cantor. Discussed assessment and plan as described above. Thank you for this consult and we will follow with you. Alec Marie APN Pablo Cantor MD
--- NOTE | 2018-08-06 13:55 | MRI ---
Date of service: 08/05/2018 PROCEDURE: MRI Abdomen with and without contrast and MRCP HISTORY: CT 08/05/2018 COMPARISON: None available. TECHNIQUE: Multisequence, multiplanar MR images of the abdomen with and without gadolinium contrast enhancement. 15 cc of Omniscan. The study was degraded by motion artifact FINDINGS: LIVER: The CT scan shows a small thrombus in the portal vein which is more difficult to appreciate on MRI due to motion artifact. There is a small amount of ascites surrounding the liver. There is an irregular contour consistent with cirrhosis GALLBLADDER: Unremarkable. There is severe dilatation of the proximal common duct measuring 16 mm in diameter. The distal common duct measures 3 mm in diameter. Findings are most likely due to a stricture. There is no filling defect to suggest stones. The pancreatic duct is also dilated with a diameter of 3 mm SPLEEN: Multiple splenic varices PANCREAS: Unremarkable. ADRENALS: Unremarkable. KIDNEYS: Unremarkable. AORTA: No aneurysm. ASCITES: None. PERITONEUM: Unremarkable. LYMPH NODES: Unremarkable. OTHER FINDINGS: The report concurs with the preliminary [facility] report IMPRESSION: Severely dilated proximal common duct probably due to stricture. Dilated pancreatic duct. Probable cirrhosis with portal hypertension. There are splenic varices.
--- NOTE | 2018-08-06 15:27 | CT ---
Date of service: 08/06/2018 PROCEDURE: CT Lumbar Spine without contrast HISTORY: backpain COMPARISON: None available. TECHNIQUE: Axial computed tomography images were obtained of the lumbar spine without the use of intravenous contrast. Coronal and sagittal reformatted images were created and reviewed. Radiation dose: Total exam DLP = 686.29 mGy-cm. This CT exam was performed using one or more of the following dose reduction techniques: Automated exposure control, adjustment of the mA and/or kV according to patient size, and/or use of iterative reconstruction technique. FINDINGS: VERTEBRAE: Multiple compression fractures most notably at T12 with a severe wedge compression fracture. Mild compression fracture of L1, L2 and L3. No retropulsion of the posterior vertebral body wall into the spinal canal. DISCS/SPINAL CANAL/NEURAL FORAMINA: Multilevel vacuum disc phenomenon and disc bulging with a disc bulge with posterior ridging at L3-4 with facet arthropathy contribute to central canal stenosis. Grade 1 anterolisthesis at L4-5 with disc bulge and facet arthropathy contribute to bilateral foraminal stenosis and central canal stenosis. PARASPINAL SOFT TISSUES: Minimal bilateral pleural effusions and subpleural thickening. OTHER FINDINGS: None. IMPRESSION: Multilevel vacuum disc phenomenon and disc bulging with a disc bulge with posterior ridging at L3-4 with facet arthropathy contribute to central canal stenosis. Grade 1 anterolisthesis at L4-5 with disc bulge and facet arthropathy contribute to bilateral foraminal stenosis and central canal stenosis. Multiple compression fractures most notably at T12 with a severe wedge compression fracture. Mild compression fracture of L1, L2 and L3. No retropulsion of the posterior vertebral body wall into the spinal canal.
[2018-08-06] MEDS: Lidocaine 5% Patch TD SCH (15:39)
--- NOTE | 2018-08-06 16:04 | PN ---
DATE: 08/06/2018 REASON FOR CONSULTATION: Cardiac evaluation, positive troponin, admitted with hypokalemia, generalized weakness, history of diabetes, COPD, dementia, hypertension, chronic diastolic dysfunction, congestive heart failure, severe aortic stenosis, refused TAVR, cryptogenic cirrhosis, severe thrombocytopenia, history of frequent nosebleed, admitted yesterday with generalized weakness, found to be severely hypokalemic. Potassium was supplemented. The patient on admission had asymptomatic. Today, potassium is 4.4. The patient was started on baby aspirin where the patient was found to have a platelet count of 44. I discussed with Dr. Connor, partner of Dr. Peña. Since the patient's platelet count has further dropped to 44, we will hold the Lovenox and we will also hold the aspirin also because of the severe thrombocytopenia. The patient is asymptomatic, though the patient has underlying severe aortic stenosis, history of PTCA of RCA in 2008. The patient refused in the past, the patient is not a candidate for TAVR because the patient is on dual-platelet therapy. The patient has severe thrombocytopenia secondary to cryptogenic cirrhosis as well as the patient has frequent nosebleed, treat medically, the patient is asymptomatic. Overall, the patient's condition is critical. Long-term prognosis is guarded. Strongly consider DNR/DNI. Overall, the patient has had multiple comorbidities. Thank you, Dr. Rg for providing this opportunity in taking care of the patient, Maria D Sullivan. This note is in addition to dictated by nurse practitioner, Deisi Nair. Pablo Guillermo MD
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
--- NOTE | 2018-08-06 22:02 | CON ---
DATE: 08/06/2018 This is [facility] consult. For Dr. Peña. CHIEF COMPLAINT: Weakness and hypokalemia. HISTORY OF PRESENT ILLNESS: The patient is a 78-year-old female, [facility] resident, sent in by her primary doctor for evaluation of weakness and hypokalemia with decreased appetite. At present, the patient is known to suffer from cardiomyopathy, pulmonary hypertension with cryptogenic cirrhosis along with portal hypertension and is otherwise now admitted for evaluation from the above findings. ALLERGIES: ANTIBIOTIC TO BE DETERMINED; OTHERWISE NO KNOWN ALLERGY. PRESENT MEDICAL REGIMEN: Includes spironolactone, Dulcolax, Ecotrin, Lasix, Lopressor, Lyrica, Lovenox, which was discontinued, MiraLax, Protonix, and Xopenex. PAST MEDICAL HISTORY: Significant for diabetes, dementia, hypertension, COPD, pulmonary hypertension, aortic stenosis, coronary artery stenosis, cryptogenic cirrhosis, sleep apnea, thrombocytopenia, esophageal varices, gastric varices, and duodenal ulcers. FAMILY HISTORY AND SOCIAL HISTORY: Nonsmoker. Nonethanolic, otherwise noncontributory. REVIEW OF SYSTEMS: A 12-point review of systems was done which is negative to questioning except for the items mentioned in the history of present illness.. PHYSICAL EXAMINATION VITAL SIGNS: Temperature 97.8, pulse 79, respirations 19, blood pressure 100/47 and pulse oximetry 95%. HEENT: Unremarkable. NECK: Supple. HEART: Regular rate with 1/6 systolic ejection murmur. LUNGS: Clear. ABDOMEN: Soft and nontender. EXTREMITIES: No edema. SKIN: Warm and dry. NEUROLOGIC: Awake and alert. LABORATORY DATA: The patient's labs were done. White blood cell count of 9.2, hemoglobin 11.6, hematocrit 36.3 and platelet count 44,000 today, on admission two days prior was 69,000. INR on admission was 1.42, today 1.37. Metabolic panel initially potassium of 2.8, corrected to 4.1 today with a BUN of 45, down from 62 initially with a creatinine of 1.0. Total bilirubin of 5.7 with a troponin of 0.29, with a repeat of 0.21. AST of 70 with a normal ALT of 53. The patient's urine showed small amount of leukocyte esterase. On admission, the patient had EKG done, which showed sinus rhythm, PACs, left axis deviation, LVH and abnormal EKG. The patient had chest x-ray done on admission, it was read as nonspecific density in the right hemithorax, just appeared to be medial portion of the right clavicle, pulmonary vascular congestion with left basilar atelectasis. The patient had a CT scan of the abdomen and pelvis done on admission 08/04/2018 with IV contrast, it was read as hepatic cirrhosis, focal partial thrombus within the main portal vein, prominent gastric renal shunt without gastrohepatic varices, left-sided pelvic congestion. The patient had an ultrasound of her abdomen done yesterday, it was read as patent portal vein with hepatopetal flow. MRCP results pending. ASSESSMENT: The assessment for this patient is that of subendocardial myocardial infarction, cryptogenic cirrhosis, atherosclerotic cardiovascular disease, diabetes mellitus, chronic obstructive pulmonary disease, pulmonary hypertension, electrolyte imbalance, hypokalemia, history of congestive heart failure, and thrombocytopenia related to cirrhosis. PLAN: The plan for this patient after conversation with Dr. Peña is to continue present medical regimen. We will do a myeloproliferative disease workup including JAK2 mutation and BCR-ABL testing with manual platelet counts. We will monitor clinically with labs. This is a complex patient with comprehensive medically necessary and appropriate visit carried out in excess of 25 minutes with the patient's questions answered to her satisfaction. Andrzej Connor MD
[2018-08-07] MEDS: Levalbuterol 0.63 MG/3 ML Inhal Soln UD IH SCH ×3 (07:22→20:04)
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
[2018-08-07 07:47] LABS: HEMOGLOBIN 11.5 g/dL (12.0-16.0); MEAN CELL VOLUME 93.1 fl (80.0-105.0); MEAN CORPUSCULAR HEMOGLOBIN 30.4 pg (25.0-35.0); MEAN CORPUSCULAR HGB CONC 32.7 g/dl (31.0-37.0); MEAN PLATELET VOLUME 9.6 fl (7.0-11.0); RBC 3.78 10^6/uL (3.5-6.1); RED CELL DISTRIBUTION WIDTH 15.4 % (11.5-14.5); WHITE BLOOD COUNT 8.7 10^3/uL (4.5-11.0)
[2018-08-07 07:49] LABS: INR 1.22; PROTHROMBIN TIME 14.1 SECONDS (9.4-12.5)
[2018-08-07] MEDS: Pantoprazole 40 mg EC Tab PO SCH (07:50)
[2018-08-07 07:52] LABS: PLATELET COUNT 34 10^3/uL (120.0-450.0)
[2018-08-07 08:17] LABS: ALB/GLOB RATIO 0.9 (1.1-1.8); ALBUMIN 2.6 g/dL (3.0-4.8); CALCIUM 9.1 mg/dL (8.4-10.5)
[2018-08-07 08:21] LABS: PLATELET COUNT MANUAL 35 K/mm3 (120-450)
--- NOTE | 2018-08-07 10:18 | CP.PCM.PN ---
Subjective - Date & Time of Evaluation Date of Evaluation: 08/07/18 Time of Evaluation: 10:15 - Subjective Subjective: RENAL s: seen and examined feels weak pe: vs as below gen: nad sclera: anicteric op: clear neck: supple cv: +S1+s2 no rub lungs: cta ant abd: soft nt nd no organomegaly ext: no edema neuro: following command psych: flat skin redness b/l lower extremities imp: hypokalemia/ chf / alkalosis/ anemia/hyponatremia plan: k remains stable cr slightly trending up and na slightly down perhaps slightly overdiuresed - would recc consider reduce diuretics to daily instead of bid k is stable if cr continues to slowly trend up recc hold aldactone Objective - Vital Signs/Intake and Output Vital Signs (last 24 hours): Temp Pulse Resp BP Pulse Ox 98.4 F 69 20 97/43 L 100 08/07/18 06:00 08/07/18 06:00 08/07/18 06:00 08/07/18 06:00 08/07/18 06:00 Intake and Output: 08/07/18 08/07/18 06:59 18:59 Intake Total 1500 Balance 1500 - Medications Medications: Current Medications Furosemide (Lasix) 80 mg PO BID [facility] Last Admin: 08/06/18 18:06 Dose: 80 mg Levalbuterol HCl (Xopenex) 0.63 mg IH TIDRESP [facility] Last Admin: 08/07/18 07:22 Dose: 0.63 mg Lidocaine (Lidoderm) 1 ea TD DAILY [facility] Last Admin: 08/06/18 15:39 Dose: 1 ea Metoprolol Tartrate (Lopressor) 12.5 mg PO BID [facility] Last Admin: 08/06/18 18:06 Dose: 12.5 mg Pantoprazole Sodium (Protonix Ec Tab) 40 mg PO ACB [facility] Last Admin: 08/07/18 07:50 Dose: 40 mg Polyethylene Glycol (Miralax) 17 gm PO DAILY [facility] Last Admin: 08/06/18 10:51 Dose: 17 gm Pregabalin (Lyrica) 50 mg PO Q12 [facility] Last Admin: 08/06/18 21:56 Dose: 50 mg Sodium Chloride ([place] Nasal [place]) 0 ml NS TID PRN PRN Reason: Nasal congestion Last Admin: 08/06/18 15:40 Dose: 1 spr Spironolactone (Aldactone) 25 mg PO BID [facility] Last Admin: 08/06/18 18:06 Dose: 25 mg - Labs Labs: 08/07/18 06:45 08/07/18 06:45 PT 14.1 SECONDS (9.4-12.5) H 08/07/18 06:45 INR 1.22 08/07/18 06:45 APTT 36.0 Seconds (25.1-36.5) 08/04/18 21:45
[2018-08-07] MEDS: Lidocaine 5% Patch TD SCH (10:21)
[2018-08-07] MEDS: POLYETHYLENE GLYCOL 3350 17 GM/Dose PACKET PO SCH (10:22)
--- NOTE | 2018-08-07 10:24 | CP.PCM.PN ---
<Hakan Webb - Last Filed: 08/07/18 10:29> Subjective - Date & Time of Evaluation Date of Evaluation: 08/07/18 Time of Evaluation: 10:19 - Subjective Subjective: Patient is tolerating diet. She had BM. No complaints at this time. She tells me she has lost ~30lbs in the last year. Objective - Vital Signs/Intake and Output Vital Signs (last 24 hours): Temp Pulse Resp BP Pulse Ox 98.4 F 69 20 97/43 L 100 08/07/18 06:00 08/07/18 06:00 08/07/18 06:00 08/07/18 06:00 08/07/18 06:00 Intake and Output: 08/07/18 08/07/18 06:59 18:59 Intake Total 1500 Balance 1500 - Medications Medications: Current Medications Furosemide (Lasix) 80 mg PO BID [facility] Last Admin: 08/06/18 18:06 Dose: 80 mg Levalbuterol HCl (Xopenex) 0.63 mg IH TIDRESP [facility] Last Admin: 08/07/18 07:22 Dose: 0.63 mg Lidocaine (Lidoderm) 1 ea TD DAILY [facility] Last Admin: 08/06/18 15:39 Dose: 1 ea Metoprolol Tartrate (Lopressor) 12.5 mg PO BID [facility] Last Admin: 08/06/18 18:06 Dose: 12.5 mg Pantoprazole Sodium (Protonix Ec Tab) 40 mg PO ACB [facility] Last Admin: 08/07/18 07:50 Dose: 40 mg Polyethylene Glycol (Miralax) 17 gm PO DAILY [facility] Last Admin: 08/06/18 10:51 Dose: 17 gm Pregabalin (Lyrica) 50 mg PO Q12 [facility] Last Admin: 08/06/18 21:56 Dose: 50 mg Sodium Chloride ([place] Nasal [place]) 0 ml NS TID PRN PRN Reason: Nasal congestion Last Admin: 08/06/18 15:40 Dose: 1 spr Spironolactone (Aldactone) 25 mg PO BID [facility] Last Admin: 08/06/18 18:06 Dose: 25 mg - Labs Labs: 08/07/18 06:45 08/07/18 06:45 PT 14.1 SECONDS (9.4-12.5) H 08/07/18 06:45 INR 1.22 08/07/18 06:45 APTT 36.0 Seconds (25.1-36.5) 08/04/18 21:45 - Constitutional Appears: Non-toxic, No Acute Distress - Head Exam Head Exam: ATRAUMATIC, NORMAL INSPECTION - Eye Exam Eye Exam: EOMI, Scleral icterus - Respiratory Exam Respiratory Exam: Clear to Ausculation Bilateral, NORMAL BREATHING PATTERN - Cardiovascular Exam Cardiovascular Exam: REGULAR RHYTHM, +S1, +S2 - Neurological Exam Neurological Exam: Alert, Awake, Oriented x3 - Psychiatric Exam Psychiatric exam: Normal Affect, Normal Mood - Skin Skin Exam: Normal Color Assessment and Plan - Assessment and Plan (Free Text) Assessment: 78 yo WF with multiple comorbities including cirrhosis, CAD, Pulm HTN, COPD, Aortic Stenosis [facility] weakness and hypokalemia. 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 Suspect Cardiac or PAULA. Increased bilirubin is concerning from 2s to 8.2 on admission, INR 1.42 on admission with MELD-Na 20. - PVT: Seen on admission CT, unclear if acute or chronic. Follow-up images did not validate this finding. - EV: Last EGD 4 yrs ago, unknown results - HCC: No masses seen on admission CT - Ascites: On Spironolactone and Furoseide though not in typical ratio # CHF, CAD, Pulm HTN, Right sided CHF, Severe # COPD # H/o Colonic AVMs Plan: - Abd Doppler reviewed: No obvious thrombus, patent vessels. Splenomegaly with varices. No ascites - MRCP with Abd MRI reviewed: Severe dilation of proximal CBD 16mm and normal distal CBD 3mm possibly due to CBD stricture. - Bilirubin 5.5. Direct 1.0. - Low direct bilirubin is an unexpected finding in setting of possible biliary obstruction. Indirect could be from hemolysis, poor cardiac output to liver among others. - Monitor CMP, CBC, INR daily - Check HFE testing - Low Na diet - Miralax - Cont diuretics Pt seen and examined with Dr. Freitas; please see attestation for further recs/changes <Stewart Freitas V - Last Filed: 08/07/18 23:27> Objective - Vital Signs/Intake and Output Vital Signs (last 24 hours): Temp Pulse Resp BP Pulse Ox 98.6 F 70 20 108/86 100 08/07/18 18:00 08/07/18 18:00 08/07/18 18:00 08/07/18 20:11 08/07/18 06:00 Intake and Output: 08/07/18 08/08/18 18:59 06:59 Intake Total 720 Balance 720 - Medications Medications: Current Medications Calcium/Vitamin D (Oscal-D 250 Mg-125 Units Tab) 1 tab PO DAILY [facility] Furosemide (Lasix) 80 mg PO BID [facility] Last Admin: 08/07/18 20:11 Dose: 80 mg Levalbuterol HCl (Xopenex) 0.63 mg IH TIDRESP [facility] Last Admin: 08/07/18 20:04 Dose: 0.63 mg Lidocaine (Lidoderm) 1 ea TD DAILY [facility] Last Admin: 08/07/18 10:21 Dose: 1 ea Metoprolol Tartrate (Lopressor) 12.5 mg PO BID [facility] Last Admin: 08/07/18 17:10 Dose: 12.5 mg Pantoprazole Sodium (Protonix Ec Tab) 40 mg PO ACB [facility] Last Admin: 08/07/18 07:50 Dose: 40 mg Polyethylene Glycol (Miralax) 17 gm PO DAILY [facility] Last Admin: 08/07/18 10:22 Dose: 17 gm Pregabalin (Lyrica) 50 mg PO Q12 [facility] Last Admin: 08/07/18 21:58 Dose: 50 mg Sodium Chloride ([place] Nasal [place]) 0 ml NS TID PRN PRN Reason: Nasal congestion Last Admin: 08/06/18 15:40 Dose: 1 spr Spironolactone (Aldactone) 25 mg PO BID [facility] Last Admin: 08/07/18 17:10 Dose: 25 mg - Labs Labs: 08/07/18 06:45 08/07/18 06:45 PT 14.1 SECONDS (9.4-12.5) H 08/07/18 06:45 INR 1.22 08/07/18 06:45 APTT 36.0 Seconds (25.1-36.5) 08/04/18 21:45 Attending/Attestation - Attestation I have personally seen and examined this patient.: Yes I have fully participated in the care of the patient.: Yes I have reviewed all pertinent clinical information, including history, physical exam and plan: Yes Notes (Text): This is an addendum to GI progress report dictated by the GI Fellow. The patient was seen and examined earlier. Medical records, lab studies, imagings were reviewed. Last 24 hours events reviewed. Agreed with the above treatment plan as outlined in GI Fellow 's notes with the addition of the following portal vein is patent Patient has significant elevated right ventricular systolic pressure Elevated bilirubin is mainly indirect Contributing factors for the elevated total bilirubin and mainly indirect component should include hepatic congestion from right ventricular dysfunction in the background of cirrhosis of the liver Hemolysis also should be included as a differential diagnosis would request reticulocyte count, follow-up [facility] MRCP findings noticed At present patient is a high risk for advanced endoscopy procedures viz EUS and ERCP in view of patient's multiple comorbiditis and the pulmonary hypertension. Patient did have a liver biopsy in 2011 which was also reviewed 08/07/18 23:21
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
--- NOTE | 2018-08-07 11:23 | PN ---
DATE: 08/07/2018 PULMONARY PROGRESS NOTE REFERRING PHYSICIAN: Kristin Rg MD SUBJECTIVE: The patient is sitting up in bed. No acute distress. No overnight events reported. Family at bedside. No headache, rhinitis, cough, shortness of breath, chest pain, abdominal pain, nausea, vomiting, diarrhea, or leg pain reported. OBJECTIVE: GENERAL: No acute distress. VITAL SIGNS: Blood pressure 132/86, pulse 66, temperature 98.4, and oxygen saturation 100% on nasal cannula. HEENT: Small oral cavity. Moist mucous membranes. NECK: Supple. No JVD. LUNGS: Few crackles at the bases. CARDIOVASCULAR: S1 and S2 audible, positive murmur. ABDOMEN: Soft and nontender. No distention. No organomegaly. EXTREMITIES: Bilateral lower extremity edema. NEUROLOGIC: Awake, alert, and verbal. Follows commands. MEDICATIONS: Reviewed. Lasix 80 mg twice a day, Xopenex 0.63 mg inhalation three times a day, lidocaine patch topically to affected area, metoprolol tartrate 12.5 mg twice a day, Protonix 40 mg daily, MiraLax 17 g daily, Lyrica 15 mg every 12 hours, [place] nasal spray three times a day p.r.n. and Aldactone 25 mg twice a day. LABORATORY DATA: Reviewed. WBC 8.7, RBC 3.78, hemoglobin 11.5, hematocrit 35.2 and platelets 34. PT 14.1 and INR 1.22. Sodium 131, potassium 3.8, chloride 92, carbon dioxide 36, anion gap 7, BUN 52, creatinine 1.1, GFR 48, random glucose 89, calcium 9.1, total bilirubin 5.5, direct bilirubin 1, AST 60, ALT 59, alkaline phosphatase 80, total protein 5.5, albumin 2.6, globulin 2.9 and albumin-globulin ratio 0.9. Urine culture final positive for Proteus mirabilis. DIAGNOSTIC DATA: Lumbar spine CT shows multiple compression fractures, most notably at T12 with a severe wedge compression fracture, mild compression fracture of the L1, L2 and L3. IMPRESSION AND PLAN: Chronic obstructive lung disease, suspected sleep apnea syndrome, cardiomyopathy, severe valvular heart disease, coronary artery disease, pulmonary hypertension, cryptogenic cirrhotic liver disease, portal thrombus, hypertension, history of lower extremity cellulitis, malnutrition, history of esophageal, gastric and duodenal ulcers and compression fractures. Pulmonary point of view, the patient continues to refuse continuous positive airway pressure machine for sleep apnea syndrome, sleep apnea precaution, head of bed elevated at 45 degrees, continue inhaled bronchodilators, continue deep venous thrombosis prophylaxis, gastric prophylaxis. Infectious Disease note appreciated regarding urinary tract infection, positive cultures. We will start the patient on calcium and vitamin D. Continue followup with Infectious Disease. This patient was seen and examined with Dr. Cantor. Discussed assessment and plan as described above. Thank you for this consult and we will follow with you. Alec Marie APN Pablo Cantor MD [facility]
--- NOTE | 2018-08-07 14:46 | PN ---
DATE: 08/07/2018 REASON FOR CONSULTATION: Followup, cardiac evaluation, positive troponin, admitted with hypokalemia, and generalized weakness. SUBJECTIVE: The patient denied any chest pain, shortness of breath, denies any palpitation. PHYSICAL EXAMINATION: GENERAL: Not in apparent distress. VITAL SIGNS: Temperature afebrile, heart rate 89, blood pressure 94/73. HEENT: PERRLA intact. NECK: Supple. No carotid bruits or thyromegaly. CHEST: Clear to auscultation. HEART: S1 and S2 regular. ABDOMEN: Soft. EXTREMITIES: Clubbing and cyanosis negative. LABORATORY DATA: WBC 8.7, hemoglobin 11.15, hematocrit 35.2, and platelets , potassium is 3.5. This note is addition to dictation by nurse practitioner, Deisi Nair. Family is at the bedside. The patient has cryptogenic cirrhosis, severe thrombocytopenia, congestive heart failure with diastolic dysfunction, history of PTCA of RCA in 2008, history of severe aortic stenosis, refused TAVR in the past. Now, the patient is getting weak, cachectic as well as protein-calorie malnutrition present on admission. Not a candidate now for go for TAVR because of severe thrombocytopenia without platelet therapy, without aspirin and Plavix, the patient has nosebleed. The patient's platelets are very low. Today is 34 and magnesium is 35. Recommend low dose beta-kirby. Continue spironolactone. Continue Lasix. Medical treatment and supportive care. Overall, the patient's critical long-term prognosis is guarded. Consider DNR/DNI. We will follow with you. Thank you Dr. Rg for providing this opportunity in taking care of the patient, Maria D Sullivan. This note is in addition to dictated by nurse practitioner, Deisi Nair. Pablo Guillermo MD
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
--- NOTE | 2018-08-07 18:58 | PN ---
DATE: 08/07/2018 This is [facility] visit, this is on telemetry. For Dr. Peña. SUBJECTIVE: The patient is a 78-year-old female. She is sitting up in bed this visit with her platelet count noted to be lower and the values obtained yesterday. However, the patient appears comfortable with no active bleeding with labs to be monitored again tomorrow morning as per Dr. Peña's recommendations. It should be noticed that the patient has a history of cryptogenic cirrhosis and has thrombocytopenic indices for significant period of time with these findings to be reviewed after labs from tomorrow morning's blood test including manual platelet count. Otherwise, the patient is in no acute distress. PHYSICAL EXAMINATION VITAL SIGNS: Temperature 97.1, pulse 70, respirations 18, blood pressure 103/44 with a pulse oximetry of 100%. HEENT: Unremarkable. NECK: Supple. HEART: Regular rate with 1/6 systolic ejection murmur. LUNGS: Clear. ABDOMEN: Soft and nontender. EXTREMITIES: No edema. SKIN: Warm and dry. NEUROLOGIC: Awake and alert. LABORATORY DATA: The patient's labs were done. White blood cell count of 8.7, hemoglobin 11.5, hematocrit 35.2 and platelet count of 34,000 with a manual of 35,000, again with no active bleeding. Her INR today is 1.22. Metabolic panel showing a sodium of 131, chloride of 92, BUN of 52, creatinine of 1.1, total bilirubin of 5.5, direct bilirubin of 1. AST 60 and ALT 57. The patient did have a CT scan of the lumbar spine done yesterday that was read as multilevel vacuum disc phenomenon and disc bulging with a disc volume with posterior ridging L3-4 facet arthropathy, cirrhosis to central canal stenosis, grade 1 anterolisthesis L4-5 with disc bulging in facet arthropathy continued to bilateral foraminal stenosis and central canal stenosis. Multiple compression fractures most notably on T12 with a severe wedge compression fracture, mild compression fracture of L1, L2 and L3. No retropulsion of the posterior vertebral body into the spinal canal. MEDICATIONS: As per consultants recommendations with spironolactone, Lasix along with Lopressor, Lyrica, MiraLax, Protonix and Xopenex. Continue her regimen of medications and her Lidoderm patch. ASSESSMENT: The assessment for this patient is that of symptomatic anemia status post transfusion with inflated hemoglobin values, we will repeat test in the morning. Also the patient suffers from cryptogenic cirrhosis, subendocardial myocardial infarction, atherosclerotic cardiovascular disease, diabetes mellitus, chronic obstructive pulmonary disease, pulmonary hypertension, electrolyte imbalance, hypokalemia, history of congestive heart failure, and thrombocytopenia related to cirrhosis. PLAN: The plan for this patient is to continue her present medical regimen with a manual platelet count ordered for the morning with JAK2 mutation testing, BCR-ABL gene testing sent with results eventually to come. It should be noted for the patient's recent subendocardial PR, she is not a candidate for antiplatelet therapy and therefore testing is on hold as per Dr. Guillermo in that aspect of her care. This is a complex patient with comprehensive medically necessary and appropriate visit carried out in excess of 20 minutes with the patient's questions answered to her satisfaction. Andrzej Connor MD
--- NOTE | 2018-08-08 02:44 | PN ---
DATE: 08/06/2018 SUBJECTIVE: She is a 78-year-old female. She complained of leg pain and no bowel movement. The patient has no chest pain, no short of breath, and otherwise, she is stable. PHYSICAL EXAMINATION: VITAL SIGNS: On 08/06/2018 is as follows: Temperature is 97.9, heart rate is 66, blood pressure 109/45, respirations 18. HEAD AND NECK: Normal. No JVD. No thyromegaly. CHEST: Clear. Bilateral cardiac first and second sounds are normal. ABDOMEN: Soft and nontender. EXTREMITIES: No edema. NEUROLOGIC: Normal. LABORATORY STUDY: White count is 9.2; hemoglobin is 11.6; hematocrit is 36.3; platelets 44,000. Chemistry, sodium 134, potassium 4.9, chloride 95, bicarb 37, BUN 45, creatinine 1. AST 75, ALT and alk phos are normal. IMPRESSION AND PLAN: 1. Abnormal electrolyte abnormalities, got better, now potassium is within normal range, 3.8. 2. Non-ST elevation myocardial infarction, seems stable, cannot quit Lovenox because of low platelets. Hematology and Cardiology on the case. 3. Constipation. We will start medication, Dulcolax suppository and pills, and we will see how she do. The patient further evaluations as she is a high risk patient with multiple cardiac problems. 4. Severe aortic stenosis, non-ST elevation myocardial infarction, coronary artery disease. Continue current treatment for now. 5. Liver cirrhosis with thrombocytopenia. I will monitor with the Gastroenterology and Hematology consulting the case. 6. Leg pain, back pain. Neuro consultations, and we will give her Lyrica. Troy Larsen MD
--- NOTE | 2018-08-08 03:02 | PN ---
DATE: 08/07/2018 SUBJECTIVE: The patient is seen on 08/07/2018. She is comfortable. She has less leg pain. She is still having problem with moving her bowel. Otherwise in no respiratory distress. PHYSICAL EXAMINATION: As follows: VITAL SIGNS: Temperature is 98.2, heart rate 69, blood pressure 104/40, respirations 18, saturation 99% on 3 L nasal cannula. HEAD AND NECK: Normal. No JVD. No thyromegaly. HEART: Systolic murmur across the precordium, going to the neck consistent with aortic stenosis. ABDOMEN: Soft, nontender. EXTREMITIES: No edema. NEUROLOGICAL: Normal. SKIN: The skin of lower extremities has consistent chronic stasis dermatitis and previous cellulitis. LABORATORY DATA: Laboratory on 08/07/2018 shows sodium 131, potassium 3.8, chloride 92, bicarb 36, BUN 52, creatinine 1.1, bilirubin 5.5, AST 60, ALT 57. Ammonia 31. IMPRESSION AND PLAN: 1. Non-ST elevation myocardial infarctions, coronary artery disease, severe aortic stenosis, cardiomyopathy. No interventions to be done. Cannot give heparin. She is on baby aspirin. Continue current therapy. Follow up with Cardiology. 2. Leg pain. Neurology has seen the patient. They did a CT of the lumbar spine. The CT scan of the lumbar spine shows multilevel vacuum disk phenomenon and disk bulge with posterior ridging at L3-L4 with facet arthropathy contributing to central canal stenosis. There is also anterolisthesis at L4-L5 with disk bulge and facet arthropathy contributing to bilateral foraminal stenosis and central canal stenosis, also multiple compression fractures most noted at T12 with severe wedge compression fracture. 3. Thrombocytopenia secondary to liver cirrhosis. The patient has a bilirubin of 5.5 with low platelets. The patient has portal hypertension. The patient has significant liver disease. Gastroenterology evaluation questionable thrombosis. I did get Hematology and Gastroenterology to evaluate the finding and MRCP results. MRCP was done and it shows probable cirrhosis, portal hypertension, splenic varices, also severe dilated proximal common bile duct due to strictures. We will leave that for gastroenterology evaluation. The patient is at high risk because of coronary artery disease and severe aortic stenosis. 4. Generalized weakness. She will need rehabilitation. Probably, she will go back to [facility]. Continue current therapy. Follow up clinically. Troy Larsen MD [facility] # [id number]
[2018-08-08 06:51] LABS: INR 1.2; PROTHROMBIN TIME 13.9 SECONDS (9.4-12.5)
[2018-08-08 07:08] LABS: HEMOGLOBIN 11.2 g/dL (12.0-16.0); MEAN CORPUSCULAR HEMOGLOBIN 31.2 pg (25.0-35.0); MEAN CORPUSCULAR HGB CONC 33.5 g/dl (31.0-37.0); RBC 3.59 10^6/uL (3.5-6.1); RED CELL DISTRIBUTION WIDTH 15.7 % (11.5-14.5); WHITE BLOOD COUNT 9.6 10^3/uL (4.5-11.0)
[2018-08-08 07:18] LABS: ALB/GLOB RATIO 0.8 (1.1-1.8); ALBUMIN 2.5 g/dL (3.0-4.8); CALCIUM 8.8 mg/dL (8.4-10.5)
[2018-08-08] MEDS: Levalbuterol 0.63 MG/3 ML Inhal Soln UD IH SCH ×3 (07:29→20:20)
[2018-08-08 07:33] LABS: PLATELET COUNT 38 10^3/uL (120.0-450.0)
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
[2018-08-08 08:26] LABS: PLATELET COUNT MANUAL 57 K/mm3 (120-450)
--- NOTE | 2018-08-08 08:34 | CP.PCM.PN ---
Subjective - Date & Time of Evaluation Date of Evaluation: 08/08/18 Time of Evaluation: 08:31 - Subjective Subjective: 78 y o woman with multiple severe medical issues, admitted with hypokalemia. Has thrombocytopenia CT L-spine showes mult chronic compression fractures Unfortunatly because of her general medical health, thrombocytopenia and diffuse multiple compression fractures she is NOT a candidate for any type of surgical proceedure, Consider analgesics and PT Objective - Vital Signs/Intake and Output Vital Signs (last 24 hours): Temp Pulse Resp BP Pulse Ox 98.0 F 74 20 101/49 L 98 08/08/18 06:00 08/08/18 06:00 08/08/18 06:00 08/08/18 06:00 08/08/18 06:00 Intake and Output: 08/08/18 08/08/18 06:59 18:59 Intake Total 720 Balance 720 - Medications Medications: Current Medications Calcium/Vitamin D (Oscal-D 250 Mg-125 Units Tab) 1 tab PO DAILY [facility] Furosemide (Lasix) 80 mg PO BID [facility] Last Admin: 08/07/18 20:11 Dose: 80 mg Levalbuterol HCl (Xopenex) 0.63 mg IH TIDRESP [facility] Last Admin: 08/08/18 07:29 Dose: 0.63 mg Lidocaine (Lidoderm) 1 ea TD DAILY [facility] Last Admin: 08/07/18 10:21 Dose: 1 ea Metoprolol Tartrate (Lopressor) 12.5 mg PO BID [facility] Last Admin: 08/07/18 17:10 Dose: 12.5 mg Pantoprazole Sodium (Protonix Ec Tab) 40 mg PO ACB [facility] Last Admin: 08/07/18 07:50 Dose: 40 mg Polyethylene Glycol (Miralax) 17 gm PO DAILY [facility] Last Admin: 08/07/18 10:22 Dose: 17 gm Pregabalin (Lyrica) 50 mg PO Q12 [facility] Last Admin: 08/07/18 21:58 Dose: 50 mg Sodium Chloride ([place] Nasal [place]) 0 ml NS TID PRN PRN Reason: Nasal congestion Last Admin: 08/06/18 15:40 Dose: 1 spr Spironolactone (Aldactone) 25 mg PO BID [facility] Last Admin: 08/07/18 17:10 Dose: 25 mg - Labs Labs: 08/08/18 06:15 08/08/18 06:15 PT 13.9 SECONDS (9.4-12.5) H 08/08/18 06:15 INR 1.20 08/08/18 06:15 APTT 36.0 Seconds (25.1-36.5) 08/04/18 21:45
[2018-08-08] MEDS ORDERED: Potassium Chloride 20 mEq ER Tab PO ONE (09:09)
[2018-08-08] MEDS: Lidocaine 5% Patch TD SCH (09:29)
[2018-08-08] MEDS: POLYETHYLENE GLYCOL 3350 17 GM/Dose PACKET PO SCH (09:29)
[2018-08-08] MEDS: Pantoprazole 40 mg EC Tab PO SCH (09:31)
[2018-08-08] MEDS: Calcium-Vit D 250 mg-125 Units Tab UD PO SCH (09:31)
--- NOTE | 2018-08-08 11:40 | PN ---
DATE: 08/08/2018 REASON FOR CONSULTATION: Followup, cardiac evaluation, hypokalemia, generalized weakness, on admission borderline positive troponin. SUBJECTIVE: The patient is confused, denies any chest pain, shortness of breath, or any palpitation. PHYSICAL EXAMINATION: GENERAL: Not in apparent distress, lying flat in the bed. VITAL SIGNS: Temperature afebrile, heart rate 74, blood pressure 101/49. HEENT: PERRLA, extraocular muscles intact. NECK: Supple. No carotid bruits or thyromegaly. CHEST: Clear to auscultation. HEART: S1 and S2 regular. ABDOMEN: Soft. EXTREMITIES: Clubbing and cyanosis negative. LABORATORY DATA: Blood workup as follows; WBC 9.6, hemoglobin 11, hematocrit 33.4, and platelet count 57. Chemistry shows sodium 131, potassium 3.7, chloride 92, carbon dioxide 37, anion gap of 7, BUN 15, and creatinine 1.2. Total protein 5.4, albumin 2.5, albumin/globulin ratio 0.8. IMPRESSION: Protein-calorie malnutrition, was not present on admission, severe thrombocytopenia, anemia, history of severe aortic stenosis, refused transcatheter aortic valve replacement in the past, history of coronary artery disease, status post percutaneous transluminal coronary angioplasty of right coronary artery, cryptogenic cirrhosis, frequent nosebleed without aspirin and Plavix, critical aortic stenosis, on admission borderline positive troponin. RECOMMENDATION: Continue low dose beta-kirby. Continue baby aspirin as tolerated. The patient's platelet count is low, was held yesterday. Continue low dose beta-kirby. We will supplement potassium, increase the nutritional support. Overall, the patient's critical long-term prognosis is guarded. Strongly consider DNR/DNI. Continue spironolactone 25 p.o. b.i.d. Continue gentle Lasix, we will give 40 of K-Dur to prevent ongoing loss. Overall, the patient's critical long-term prognosis is extremely guarded. Strongly consider admission. Strongly consider DNR/DNI. Thank you Dr. Rg for providing the opportunity in taking care of the patient, Maria D Sullivan. Pablo Guillermo MD [facility] # [id number]
--- NOTE | 2018-08-08 13:02 | CP.PCM.PN ---
<Timothy Yang - Last Filed: 08/08/18 17:46> Subjective - Date & Time of Evaluation Date of Evaluation: 08/08/18 Time of Evaluation: 10:50 - Subjective Subjective: PGY-4 GI Fellow Prog Note Pt lying in bed when seen this AM. States she feels generalized weakness. Reports that she is eating and drinking w/o problems. 5 point ROS negative other than stated above Objective - Vital Signs/Intake and Output Vital Signs (last 24 hours): Temp Pulse Resp BP Pulse Ox 97.6 F 74 18 110/55 L 98 08/08/18 12:00 08/08/18 12:00 08/08/18 12:00 08/08/18 12:00 08/08/18 06:00 Intake and Output: 08/08/18 08/08/18 06:59 18:59 Intake Total 720 Balance 720 - Medications Medications: Current Medications Calcium/Vitamin D (Oscal-D 250 Mg-125 Units Tab) 1 tab PO DAILY [facility] Last Admin: 08/08/18 09:31 Dose: 1 tab Furosemide (Lasix) 80 mg PO BID [facility] Last Admin: 08/08/18 09:29 Dose: 80 mg Levalbuterol HCl (Xopenex) 0.63 mg IH TIDRESP [facility] Last Admin: 08/08/18 07:29 Dose: 0.63 mg Lidocaine (Lidoderm) 1 ea TD DAILY [facility] Last Admin: 08/08/18 09:29 Dose: 1 ea Metoprolol Tartrate (Lopressor) 12.5 mg PO BID [facility] Last Admin: 08/08/18 09:31 Dose: 12.5 mg Pantoprazole Sodium (Protonix Ec Tab) 40 mg PO ACB [facility] Last Admin: 08/08/18 09:31 Dose: 40 mg Polyethylene Glycol (Miralax) 17 gm PO DAILY [facility] Last Admin: 08/08/18 09:29 Dose: 17 gm Pregabalin (Lyrica) 50 mg PO Q12 [facility] Last Admin: 08/08/18 09:36 Dose: Not Given Sodium Chloride ([place] Nasal [place]) 0 ml NS TID PRN PRN Reason: Nasal congestion Last Admin: 08/08/18 09:37 Dose: 1 spr Spironolactone (Aldactone) 25 mg PO BID [facility] Last Admin: 08/08/18 09:32 Dose: 25 mg - Labs Labs: 08/08/18 06:15 08/08/18 06:15 PT 13.9 SECONDS (9.4-12.5) H 08/08/18 06:15 INR 1.20 08/08/18 06:15 APTT 36.0 Seconds (25.1-36.5) 08/04/18 21:45 - Constitutional Appears: No Acute Distress, Cachectic, Chronically Ill - Eye Exam Eye Exam: EOMI, Scleral icterus - ENT Exam ENT Exam: Mucous Membranes Dry. absent: Mucous Membranes Moist - Respiratory Exam Respiratory Exam: absent: Accessory Muscle Use, Respiratory Distress - GI/Abdominal Exam GI & Abdominal Exam: Soft, Normal Bowel Sounds. absent: Bruit, Distended, Firm, Guarding, Rigid, Tenderness, Mass, Organomegaly, Pulsatile Mass, Rebound Assessment and Plan - Assessment and Plan (Free Text) Assessment: 78 yo WF with multiple comorbities including cirrhosis, CAD, Pulm HTN, COPD, Aortic Stenosis sent in from [facility] for weakness and hypokalemia. 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 Suspect Cardiac or PAULA. Increased bilirubin is concerning from 2s to 8.2 on admission, INR 1.42 on admission with MELD-Na 20. - PVT: Seen on admission CT, Doppler did not reveal any thrombus - EV: Last EGD 4 yrs ago, unknown results - HCC: No masses seen on admission CT - Ascites: On Spironolactone and Furoseide though not in typical ratio # CHF, CAD, Pulm HTN, Right sided CHF, Severe # COPD # H/o Colonic AVMs Plan: - Abd Doppler reviewed: No obvious thrombus, patent vessels. Splenomegaly with v arices. No ascites - MRCP with Abd MRI reviewed: Severe dilation of proximal CBD 16mm and normal distal CBD 3mm possibly due to CBD stricture. Pt is high risk for complications with ERCP/EUS with extensive co-morbidities. - Low direct bilirubin is an unexpected finding in setting of possible biliary obstruction. Indirect could be from hemolysis, poor cardiac output to liver among others. - Start Ursodiol - Cardiology consult, appreciate recs - Monitor CMP, CBC, INR daily - Low Na diet - Miralax - Cont diuretics - Stop PPI due to progressive thrombocytopenia - F/u Retic count Pt seen and examined with Dr. Freitas; please see attestation for further recs/changes <Stewart Freitas V - Last Filed: 08/08/18 22:46> Objective - Vital Signs/Intake and Output Vital Signs (last 24 hours): Temp Pulse Resp BP Pulse Ox 97.6 F 70 18 110/55 L 98 08/08/18 12:00 08/08/18 18:00 08/08/18 12:00 08/08/18 12:00 08/08/18 06:00 Intake and Output: 08/08/18 08/09/18 18:59 06:59 Intake Total 1806 Balance 1806 - Medications Medications: Current Medications Calcium/Vitamin D (Oscal-D 250 Mg-125 Units Tab) 1 tab PO DAILY [facility] Last Admin: 08/08/18 09:31 Dose: 1 tab Furosemide (Lasix) 80 mg PO BID [facility] Last Admin: 08/08/18 17:04 Dose: Not Given Levalbuterol HCl (Xopenex) 0.63 mg IH TIDRESP [facility] Last Admin: 08/08/18 13:13 Dose: 0.63 mg Lidocaine (Lidoderm) 1 ea TD DAILY [facility] Last Admin: 08/08/18 09:29 Dose: 1 ea Metoprolol Tartrate (Lopressor) 12.5 mg PO BID [facility] Last Admin: 08/08/18 17:04 Dose: Not Given Polyethylene Glycol (Miralax) 17 gm PO DAILY [facility] Last Admin: 08/08/18 09:29 Dose: 17 gm Pregabalin (Lyrica) 50 mg PO HS [facility] Sodium Chloride ([place] Nasal [place]) 0 ml NS TID PRN PRN Reason: Nasal congestion Last Admin: 08/08/18 09:37 Dose: 1 spr Spironolactone (Aldactone) 25 mg PO BID [facility] Last Admin: 08/08/18 17:04 Dose: Not Given Ursodiol (Actigall) 300 mg PO BID [facility] Last Admin: 08/08/18 17:04 Dose: Not Given - Labs Labs: 08/08/18 06:15 08/08/18 06:15 PT 13.9 SECONDS (9.4-12.5) H 08/08/18 06:15 INR 1.20 08/08/18 06:15 APTT 36.0 Seconds (25.1-36.5) 08/04/18 21:45 Attending/Attestation - Attestation I have personally seen and examined this patient.: Yes I have fully participated in the care of the patient.: Yes I have reviewed all pertinent clinical information, including history, physical exam and plan: Yes Notes (Text): This is an addendum to GI progress report dictated by the GI Fellow.The patient was seen and examined earlier. Medical records, lab studies, imagings were reviewed. Last 24 hours events reviewed. Agreed with the above treatment plan as outlined in GI Fellow 's notes with the addition of the following 08/08/18 22:45
--- NOTE | 2018-08-08 14:42 | PN ---
DATE: 08/08/2018 PULMONARY PROGRESS NOTE REFERRING PHYSICIAN: Kristin Rg MD SUBJECTIVE: The patient is sitting up, appears very sleepy, tired this morning reporting that she has increased cough. No headache, rhinitis, shortness of breath, chest pain, abdominal pain, nausea, vomiting, diarrhea or leg pain reported. OBJECTIVE: GENERAL: No acute distress. VITAL SIGNS: Blood pressure 101/49, pulse 74, temperature 98 and oxygen saturation 98%. HEENT: Poor oral cavity. Moist mucous membranes. NECK: Supple. No JVD. LUNGS: Few crackles at the bases. Few rhonchi bilaterally. CARDIOVASCULAR: S1 and S2, audible. Positive murmur. ABDOMEN: Soft and nontender. No distention. No organomegaly. EXTREMITIES: No bilateral lower extremity edema. NEUROLOGICAL: Awake, alert, and verbal. Follows commands. MEDICATIONS: Reviewed. Os-Cristo 1 tab daily, Lasix 80 mg twice a day, Xopenex 0.63 mg inhalation three times a day, Lidoderm patch topically to affected area daily, metoprolol tartrate 12.5 mg twice a day, Protonix 40 mg in the evening, MiraLax 17 g daily, Lyrica 15 mg every 12 hours, Thayer nasal spray three times a day p.r.n. and Aldactone 25 mg twice a day. LABORATORY DATA: WBC 9.6, RBC 3.59, hemoglobin 11.2, hematocrit 33.4 and platelets 38. PT 13.9 and INR is 1.2. Sodium 131, potassium 3.7, chloride 92, carbon dioxide 36, anion gap 7, BUN 39, creatinine 1.2, GFR is 43, POC glucose 106, random glucose 96, calcium 8.8, total bilirubin 6.3, AST 49, ALT 52, alkaline phosphatase 77, lactate dehydrogenase 674, total protein 5.4, albumin 2.5, globulin 2.9 and albumin-globulin ratio 0.8. Urine culture final, Proteus mirabilis. IMPRESSION AND PLAN: Chronic obstructive lung disease, suspected sleep apnea syndrome, cardiomyopathy, severe valvular heart disease, coronary artery disease, pulmonary hypertension, cryptogenic cirrhotic liver disease, portal thrombus, hypertension, history of lower extremity cellulitis, malnutrition, history of esophageal, gastric and duodenal ulcers and compression fractures. Pulmonary point of view, the patient continues to refuse continuous positive airway pressure machine for sleep apnea syndrome, head of bed elevated at 45 degrees and sleep apnea precaution. Continue inhaled bronchodilators. Continue deep venous thrombosis prophylaxis and gastric prophylaxis. Continue followup with Infectious Disease. We will order chest x-ray to be done and decrease patient's Lyrica to once a day. This patient was seen and examined with Dr. Cantor. Discussed assessment and plan as described above. Thank you for this consult. We will follow with you. Alec Marie APN Pablo Cantor MD ARACELI
--- NOTE | 2018-08-08 15:31 | CP.PCM.PN ---
Subjective - Date & Time of Evaluation Date of Evaluation: 08/08/18 Time of Evaluation: 15:28 - Subjective Subjective: RENAL Note s: seen and examined pt appears sleepy and confused. unable to provide muxh hx.says feels lousy pe: vs as below gen: nad sclera: icteric op: clear neck: supple cv: +S1+s2 no rub lungs: cta ant abd: soft nt nd no organomegaly ext: no edema neuro: following command but confused/sleepy psych: flat skin redness b/l lower extremities imp: hypokalemia/ chf / alkalosis/ anemia/hyponatremia/cirrhosis with portal HTN/severe with RV dysfunction/thrombocytopenia plan: k remains stable. supplement as needed CHF management as per cardio pt on lasix and aldactone check UA, urine Na and urine Osmol pt not a candidate for samsca due to cirrhosis GI and cardiology following prognosis guarded Objective - Vital Signs/Intake and Output Vital Signs (last 24 hours): Temp Pulse Resp BP Pulse Ox 97.6 F 74 18 110/55 L 98 08/08/18 12:00 08/08/18 12:00 08/08/18 12:00 08/08/18 12:00 08/08/18 06:00 Intake and Output: 08/08/18 08/08/18 06:59 18:59 Intake Total 720 Balance 720 - Medications Medications: Current Medications Calcium/Vitamin D (Oscal-D 250 Mg-125 Units Tab) 1 tab PO DAILY [facility] Last Admin: 08/08/18 09:31 Dose: 1 tab Furosemide (Lasix) 80 mg PO BID [facility] Last Admin: 08/08/18 09:29 Dose: 80 mg Levalbuterol HCl (Xopenex) 0.63 mg IH TIDRESP [facility] Last Admin: 08/08/18 13:13 Dose: 0.63 mg Lidocaine (Lidoderm) 1 ea TD DAILY [facility] Last Admin: 08/08/18 09:29 Dose: 1 ea Metoprolol Tartrate (Lopressor) 12.5 mg PO BID [facility] Last Admin: 08/08/18 09:31 Dose: 12.5 mg Pantoprazole Sodium (Protonix Ec Tab) 40 mg PO ACB [facility] Last Admin: 08/08/18 09:31 Dose: 40 mg Polyethylene Glycol (Miralax) 17 gm PO DAILY [facility] Last Admin: 08/08/18 09:29 Dose: 17 gm Pregabalin (Lyrica) 50 mg PO HS [facility] Sodium Chloride ([place] Nasal [place]) 0 ml NS TID PRN PRN Reason: Nasal congestion Last Admin: 08/08/18 09:37 Dose: 1 spr Spironolactone (Aldactone) 25 mg PO BID [facility] Last Admin: 08/08/18 09:32 Dose: 25 mg - Labs Labs: 08/08/18 06:15 08/08/18 06:15 PT 13.9 SECONDS (9.4-12.5) H 08/08/18 06:15 INR 1.20 08/08/18 06:15 APTT 36.0 Seconds (25.1-36.5) 08/04/18 21:45
--- NOTE | 2018-08-08 15:37 | RAD ---
Date of service: 08/08/2018 HISTORY: rule out infiltrate COMPARISON: 08/04/2018 TECHNIQUE: Chest PA and lateral FINDINGS: LUNGS: No active pulmonary disease. PLEURA: No significant pleural effusion identified. No pneumothorax apparent. CARDIOVASCULAR: Aortic calcification Mild cardiomegaly no pulmonary vascular congestion. OSSEOUS STRUCTURES: No significant abnormalities. VISUALIZED UPPER ABDOMEN: Normal. OTHER FINDINGS: None. IMPRESSION: No active disease.
--- NOTE | 2018-08-08 16:25 | CP.PCM.PN ---
Subjective - Date & Time of Evaluation Date of Evaluation: 08/08/18 Time of Evaluation: 09:15 - Subjective Subjective: lethargic, arousable Objective - Vital Signs/Intake and Output Vital Signs (last 24 hours): Temp Pulse Resp BP Pulse Ox 97.6 F 74 18 110/55 L 98 08/08/18 12:00 08/08/18 12:00 08/08/18 12:00 08/08/18 12:00 08/08/18 06:00 Intake and Output: 08/08/18 08/08/18 06:59 18:59 Intake Total 720 Balance 720 - Medications Medications: Current Medications Calcium/Vitamin D (Oscal-D 250 Mg-125 Units Tab) 1 tab PO DAILY [facility] Last Admin: 08/08/18 09:31 Dose: 1 tab Furosemide (Lasix) 80 mg PO BID [facility] Last Admin: 08/08/18 09:29 Dose: 80 mg Levalbuterol HCl (Xopenex) 0.63 mg IH TIDRESP [facility] Last Admin: 08/08/18 13:13 Dose: 0.63 mg Lidocaine (Lidoderm) 1 ea TD DAILY [facility] Last Admin: 08/08/18 09:29 Dose: 1 ea Metoprolol Tartrate (Lopressor) 12.5 mg PO BID [facility] Last Admin: 08/08/18 09:31 Dose: 12.5 mg Polyethylene Glycol (Miralax) 17 gm PO DAILY [facility] Last Admin: 08/08/18 09:29 Dose: 17 gm Pregabalin (Lyrica) 50 mg PO HS [facility] Sodium Chloride ([place] Nasal [place]) 0 ml NS TID PRN PRN Reason: Nasal congestion Last Admin: 08/08/18 09:37 Dose: 1 spr Spironolactone (Aldactone) 25 mg PO BID [facility] Last Admin: 08/08/18 09:32 Dose: 25 mg Ursodiol (Actigall) 300 mg PO BID [facility] - Labs Labs: 08/08/18 06:15 08/08/18 06:15 PT 13.9 SECONDS (9.4-12.5) H 08/08/18 06:15 INR 1.20 08/08/18 06:15 APTT 36.0 Seconds (25.1-36.5) 08/04/18 21:45 - Respiratory Exam Respiratory Exam: Clear to Ausculation Bilateral, NORMAL BREATHING PATTERN - Cardiovascular Exam Cardiovascular Exam: REGULAR RHYTHM, Murmur - GI/Abdominal Exam GI & Abdominal Exam: Soft, Normal Bowel Sounds - Neurological Exam Neurological Exam: Altered - Skin Skin Exam: Dry, Warm Assessment and Plan (1) Cirrhosis Status: Acute (2) CHF (congestive heart failure) Status: Chronic (3) COPD exacerbation Status: Chronic (4) Critical aortic valve stenosis Status: Chronic (5) Thrombocytopenia Status: Chronic - Assessment and Plan (Free Text) Plan: check ammonia level, neuro/GI follow-up, SW for DC planning
[2018-08-08] MEDS ORDERED: Lactulose 10 gm/15 ml (Rectal Use) PR ONE ×3 (17:00→22:00)
--- NOTE | 2018-08-08 17:34 | PCM.RRT ---
<Uma Davila - Last Filed: 08/08/18 17:47> [employer] Nurse Assessment - Situation Date: 08/08/18 Time [employer] was called: 16:00 [employer] Responder Arrival Time: 16:02 [employer] Location:: [address] [place] [address] Room Number: [id number] [employer] Reason for Call: Change in Mental Status [employer] Called By: RN - IV IV Inserted during [employer]?: No - Respiratory Oxygen Delivery Method: Nasal Cannula @L/min Oxygen Flow Rate: 2 Received Nebulizer Treatments:: No Was the Patient Ventilated with Bag/Mask 100% O2?: No Secretions Suctioned?: No Was the Patient Intubated?: No Was the Patient Placed on a Ventilator?: No - Diagnostic Test Ordered EKG: No Chest X-Ray: No CT Scan: Yes (Head) - Stat Labs Ordered [employer] Other Labs Ordered: Ammonia level CPR started during [employer]?: No - Vital Signs Vital Sign: Rapid Response Vital Sign Blood Pressure 105/47 Pulse Rate 72 Temperature 98.1 F Oxygen Saturation 96 - Finger Stick Blood Glucose Finger Stick Blood Glucose: 157 - Carman Coma Scale Coma Scale Eye Opening: To pain Coma Scale Motor: Obeys Commands Movement Coma Scale Verbal: Confused/able to answer - Vital Signs at end of [employer] Vital Signs at end of [employer]: Rapid Response End Vital Sign Blood Pressure 97/45 Pulse Rate 70 Respiratory Rate 16 Temperature 98.1 F O2 Sat by Pulse Oximetry 96 - Recommendations 5) [employer] Level of Care Recommendations: Remain in current setting Notifications: Attending Physician I.Reason for [employer] - A) Acute Change in Patient: (Select all that apply): Acute change in mental status - Respiratory Oxygen Delivery Method: Nasal Cannula @L/min Oxygen Flow Rate: 2 - Head Head Exam: ATRAUMATIC, NORMOCEPHALIC - Eyes Eye Exam: EOMI, PERRL, Scleral icterus - Respiratory Exam Respiratory Exam: Clear to Ausculation Bilateral - Cardiovascular Exam Cardiovascular Exam: RRR, +S1, +S2, Murmur - GI/Abdominal Exam GI & Abdominal Exam: Soft, Normal Bowel Sounds. absent: Distended, Tenderness - Neurological Exam Neurological Exam: Alert, Awake Additional exam: oriented to self, place - Extremities Exam Extremities Exam: Normal Inspection. absent: Calf Tenderness Plan - Assessment of Findings&Treatment Plan This is a 78 year old female with PMH cryptogenic cirrhosis, right sided heart failure, pulmonary HTN, admitted to [facility] for CHF exacerbation. [employer] was called by nurse due to change in mental status. As per nurse, patient is lethargic, drowsy. At baseline, patient is alert, oriented x1. Patient was awake, alert, unable to open her eyes, says that "she is trying." At baseline, patient is alert, awake, oriented x1-2. Currently, patient denies pain. ROS limited due to AMS. Vitals as per above PE: Neuro: alert, awake, oriented to self, place. follows some commands, moves all extremities, sensation intact Resp: CTA b/l Cardio: RRR. S1, S2. + systolic murmur. Abd: soft, NT, ND. Extremities: No calf tenderness, no edema. A/P: AMS 2/2 hepatic encephalopahty, unlikely CVA - Ammonia level drawn, 111 - Will give lactulose enema x2 overnight. ammonia level tomorrow AM. - failed NGT/dobhoff insertion - NPO for now. Advised nursing staff to perform frequent neuro checks, assess bedside swallow prn - Neuro checks - Given low BP, will hold night dosages of lasix, metoprolol - Discussed case with Dr Dietrich, who is covering for PMD Dr Rg. Case discussed with attending, Dr Fernandez. Uma Davila, PGY2 <Loy Fernandez - Last Filed: 08/18/18 00:57> [employer] Nurse Assessment - Vital Signs Vital Sign: Rapid Response Vital Sign Blood Pressure 105/47 Pulse Rate 72 Temperature 98.1 F Oxygen Saturation 96 - Vital Signs at end of [employer] Vital Signs at end of [employer]: Rapid Response End Vital Sign Blood Pressure 97/45 Pulse Rate 70 Respiratory Rate 16 Temperature 98.1 F O2 Sat by Pulse Oximetry 96 Attending/Attestation - Attestation I have personally seen and examined this patient.: Yes I have fully participated in the care of the patient.: Yes I have reviewed all pertinent clinical information, including history, physical exam and plan: Yes
[2018-08-08 19:19] LABS: URINE BILIRUBIN NEGATIVE (NEGATIVE); URINE BLOOD NEGATIVE (NEGATIVE); URINE GLUCOSE (UA) NEGATIVE (NEGATIVE); URINE LEUKOCYTE ESTERASE NEGATIVE Leu/uL (NEGATIVE); URINE PROTEIN NEGATIVE mg/dL (<30 mg/dL)
[2018-08-08 19:22] LABS: URINE APPEARANCE CLEAR (CLEAR); URINE COLOR YELLOW (YELLOW)
[2018-08-08 20:24] LABS: OSMOLALITY,URINE 299 mosm/kg (300-1000)
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
[2018-08-09 07:51] LABS: HEMOGLOBIN 11.8 g/dL (12.0-16.0); MEAN CELL VOLUME 93.1 fl (80.0-105.0); MEAN CORPUSCULAR HEMOGLOBIN 31.2 pg (25.0-35.0); MEAN CORPUSCULAR HGB CONC 33.5 g/dl (31.0-37.0); MEAN PLATELET VOLUME 10.9 fl (7.0-11.0); RBC 3.78 10^6/uL (3.5-6.1); RED CELL DISTRIBUTION WIDTH 15.8 % (11.5-14.5); WHITE BLOOD COUNT 11.8 10^3/uL (4.5-11.0)
[2018-08-09 07:54] LABS: PLATELET COUNT 33 10^3/uL (120.0-450.0)
[2018-08-09 07:59] LABS: INR 1.17; PROTHROMBIN TIME 13.5 SECONDS (9.4-12.5)
[2018-08-09] MEDS: Levalbuterol 0.63 MG/3 ML Inhal Soln UD IH SCH ×3 (08:06→20:16)
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
[2018-08-09 08:09] LABS: ALB/GLOB RATIO 0.9 (1.1-1.8); ALBUMIN 2.7 g/dL (3.0-4.8); ALT/SGPT 51 U/L (7-56); AST/SGOT 46 U/L (14-36); BLOOD UREA NITROGEN 61 mg/dL (7-21); CALCIUM 9.1 mg/dL (8.4-10.5); GFR NON-AFRICAN AMERICAN 54
[2018-08-09] MEDS: Calcium-Vit D 250 mg-125 Units Tab UD PO SCH (10:15)
[2018-08-09] MEDS: POLYETHYLENE GLYCOL 3350 17 GM/Dose PACKET PO SCH (10:16)
[2018-08-09] MEDS: Lidocaine 5% Patch TD SCH (10:16)
--- NOTE | 2018-08-09 11:38 | CP.PCM.PN ---
Subjective - Date & Time of Evaluation Date of Evaluation: 08/09/18 Time of Evaluation: 08:45 - Subjective Subjective: some left sided chest discomfort reproducible by palpation, no SOB, no N/V or diaphoresis Objective - Vital Signs/Intake and Output Vital Signs (last 24 hours): Temp Pulse Resp BP Pulse Ox 98.1 F 87 20 114/52 L 97 08/09/18 06:00 08/09/18 10:15 08/09/18 06:00 08/09/18 10:15 08/09/18 06:00 Intake and Output: 08/09/18 08/09/18 06:59 18:59 Output Total 2 Balance -2 - Medications Medications: Current Medications Calcium/Vitamin D (Oscal-D 250 Mg-125 Units Tab) 1 tab PO DAILY [facility] Last Admin: 08/09/18 10:15 Dose: 1 tab Furosemide (Lasix) 80 mg PO BID [facility] Last Admin: 08/09/18 10:15 Dose: 80 mg Lactulose (Enulose) 10 gm PO BID [facility] Levalbuterol HCl (Xopenex) 0.63 mg IH TIDRESP [facility] Last Admin: 08/09/18 08:06 Dose: 0.63 mg Lidocaine (Lidoderm) 1 ea TD DAILY [facility] Last Admin: 08/09/18 10:16 Dose: 1 ea Metoprolol Tartrate (Lopressor) 12.5 mg PO BID [facility] Last Admin: 08/09/18 10:15 Dose: 12.5 mg Pregabalin (Lyrica) 50 mg PO HS [facility] Sodium Chloride ([place] Nasal [place]) 0 ml NS TID PRN PRN Reason: Nasal congestion Last Admin: 08/09/18 10:23 Dose: 1 spr Spironolactone (Aldactone) 25 mg PO BID [facility] Last Admin: 08/09/18 10:15 Dose: 25 mg Ursodiol (Actigall) 300 mg PO BID [facility] Last Admin: 08/09/18 10:16 Dose: 300 mg - Labs Labs: 08/09/18 07:35 08/09/18 07:35 PT 13.5 SECONDS (9.4-12.5) H 08/09/18 07:35 INR 1.17 08/09/18 07:35 APTT 36.0 Seconds (25.1-36.5) 08/04/18 21:45 - Respiratory Exam Respiratory Exam: Rales - Cardiovascular Exam Cardiovascular Exam: REGULAR RHYTHM - GI/Abdominal Exam GI & Abdominal Exam: Soft, Normal Bowel Sounds - Extremities Exam Extremities Exam: Pedal Edema - Neurological Exam Neurological Exam: Awake Assessment and Plan (1) Cirrhosis Status: Acute (2) CHF (congestive heart failure) Status: Chronic (3) COPD exacerbation Status: Chronic (4) Critical aortic valve stenosis Status: Chronic (5) Thrombocytopenia Status: Chronic - Assessment and Plan (Free Text) Plan: monitor ammonia level, lactulose started, check troponin, cardiology follow-up Dr. Guillermo
[2018-08-09] MEDS ORDERED: Lidocaine 5% Patch TD STA (11:40)
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
--- NOTE | 2018-08-09 12:11 | PN ---
DATE: 08/09/2018 PULMONARY PROGRESS NOTE REFERRING PHYSICIAN: Kristin Rg MD SUBJECTIVE: The patient is sitting up in bed. Nursing staff at bedside. Nursing staff reports that the patient was increasingly confused yesterday, ammonia level was 111. The patient was given lactulose x2 yesterday, this morning ammonia level is 35. The patient is less confused, more verbal. No headache, rhinitis, cough, shortness of breath, chest pain, abdominal pain, nausea, vomiting, diarrhea, leg pain or leg swelling reported. OBJECTIVE: GENERAL: No acute distress. VITAL SIGNS: Blood pressure 114/52, pulse 82, temperature 98.1 and oxygen saturation 97% on nasal cannula. HEENT: Moist mucous membranes. Small oral cavity. NECK: Supple. No JVD. LUNGS: Few rhonchi bilaterally. CARDIOVASCULAR: S1 and S2, audible. Positive murmur. ABDOMEN: Soft and nontender. No distention. No organomegaly. EXTREMITIES: No bilateral lower extremity edema. NEUROLOGIC: Awake, alert and verbal. Follows commands. MEDICATIONS: Reviewed. Os-Cristo one tab daily, Lasix 80 mg twice a day, Xopenex 0.63 mg three times a day, Lidoderm patch topically to affected area daily, metoprolol tartrate 12.5 mg twice a day, MiraLax 17 g daily, Lyrica 50 mg at bedtime, [place] nasal spray three times a day p.r.n., spironolactone 25 mg twice a day and Ursodiol 300 mg twice a day. LABORATORY DATA: Reviewed. Sodium 130, potassium 4.1, chloride 93, carbon dioxide 31, anion gap 10, BUN 61, creatinine 1, GFR is 54, random glucose 97, calcium 9.1, total bilirubin 9.3, AST 46, ALT 51, alkaline phosphatase 84, ammonia 35, total protein 5.9, albumin 2.7, globulin 3.2 and albumin-globulin ratio 0.9. Urinalysis shows urine urobilinogen 4.0 and urine osmolality 299. Chest x-ray shows no active disease. IMPRESSION AND PLAN: Chronic obstructive lung disease, suspected sleep apnea syndrome, cardiomyopathy, severe valvular heart disease, coronary artery disease, pulmonary hypertension, cryptogenic cirrhotic liver disease, portal thrombus, hypertension, history of lower extremity cellulitis, malnutrition, history of esophageal, gastric and duodenal ulcers and compression fractures. Pulmonary point of view; sleep apnea precaution, head of bed elevated at 45 degrees. The patient continues to refuse continuous positive airway pressure use. Continue inhaled bronchodilators, continue deep venous thrombosis prophylaxis and gastric prophylaxis. Will discontinue lyrica. Continue to followup with Infectious Disease. This patient was seen and examined with Dr. Cantor. Discussed assessment and plan as described above. Thank you for this consult and we will follow with you. Alec Marie APN Pablo Cantor MD [facility]ACEL[facility]
--- NOTE | 2018-08-09 13:08 | CP.PCM.PN ---
Subjective - Date & Time of Evaluation Date of Evaluation: 08/09/18 Time of Evaluation: 13:07 - Subjective Subjective: RENAL Note s: seen and examined pt feels better. mental status better after lactulose and ammonia level trended down she denies SOB pe: vs as below. frail chronically ill appearing gen: nad sclera: icteric op: clear neck: supple cv: +S1+s2 no rub lungs: cta ant abd: soft nt nd no organomegaly ext: no edema neuro: following command awake alert today psych: flat skin redness b/l lower extremities imp: hypokalemia/ chf / alkalosis/ anemia/hyponatremia/cirrhosis with portal HTN, hepatic enceph/severe with RV dysfunction/thrombocytopenia plan: k remains stable. supplement as needed CHF management as per cardio pt on lasix and aldactone pt not a candidate for samsca due to cirrhosis GI and cardiology following started lactulose prognosis guarded Objective - Vital Signs/Intake and Output Vital Signs (last 24 hours): Temp Pulse Resp BP Pulse Ox 98.5 F 81 18 106/48 L 97 08/09/18 12:00 08/09/18 12:00 08/09/18 12:00 08/09/18 12:00 08/09/18 06:00 Intake and Output: 08/09/18 08/09/18 06:59 18:59 Output Total 2 Balance -2 - Medications Medications: Current Medications Calcium/Vitamin D (Oscal-D 250 Mg-125 Units Tab) 1 tab PO DAILY [facility] Last Admin: 08/09/18 10:15 Dose: 1 tab Furosemide (Lasix) 80 mg PO BID [facility] Last Admin: 08/09/18 10:15 Dose: 80 mg Lactulose (Enulose) 10 gm PO BID [facility] Levalbuterol HCl (Xopenex) 0.63 mg IH TIDRESP [facility] Last Admin: 08/09/18 08:06 Dose: 0.63 mg Lidocaine (Lidoderm) 1 ea TD DAILY [facility] Last Admin: 08/09/18 10:16 Dose: 1 ea Metoprolol Tartrate (Lopressor) 12.5 mg PO BID [facility] Last Admin: 08/09/18 10:15 Dose: 12.5 mg Sodium Chloride ([place] Nasal [place]) 0 ml NS TID PRN PRN Reason: Nasal congestion Last Admin: 08/09/18 10:23 Dose: 1 spr Spironolactone (Aldactone) 25 mg PO BID [facility] Last Admin: 08/09/18 10:15 Dose: 25 mg Ursodiol (Actigall) 300 mg PO BID [facility] Last Admin: 08/09/18 10:16 Dose: 300 mg - Labs Labs: 08/09/18 07:35 08/09/18 07:35 PT 13.5 SECONDS (9.4-12.5) H 08/09/18 07:35 INR 1.17 08/09/18 07:35 APTT 36.0 Seconds (25.1-36.5) 08/04/18 21:45
--- NOTE | 2018-08-09 15:38 | CP.PCM.PN ---
<Timothy Yang - Last Filed: 08/09/18 15:35> Subjective - Date & Time of Evaluation Date of Evaluation: 08/09/18 Time of Evaluation: 11:50 - Subjective Subjective: PGY-4 GI Fellow Prog Note Pt sleeping in bed when seen this AM. Awoke to voice and stated that she was thirsty. Otherwise denied complaints, when asked date she said it was July 1989. Rapid response yesterday PM noted with elevated ammonia, lactulose sta rted. 5 point ROS negative other than stated above, though pt perhaps somewhat confused. Objective - Vital Signs/Intake and Output Vital Signs (last 24 hours): Temp Pulse Resp BP Pulse Ox 98.5 F 81 18 106/48 L 97 08/09/18 12:00 08/09/18 12:00 08/09/18 12:00 08/09/18 12:00 08/09/18 06:00 Intake and Output: 08/09/18 08/09/18 06:59 18:59 Output Total 2 Balance -2 - Medications Medications: Current Medications Calcium/Vitamin D (Oscal-D 250 Mg-125 Units Tab) 1 tab PO DAILY [facility] Last Admin: 08/09/18 10:15 Dose: 1 tab Furosemide (Lasix) 80 mg PO BID [facility] Last Admin: 08/09/18 10:15 Dose: 80 mg Lactulose (Enulose) 10 gm PO BID [facility] Last Admin: 08/09/18 13:04 Dose: 10 gm Levalbuterol HCl (Xopenex) 0.63 mg IH TIDRESP [facility] Last Admin: 08/09/18 13:29 Dose: 0.63 mg Lidocaine (Lidoderm) 1 ea TD DAILY [facility] Last Admin: 08/09/18 10:16 Dose: 1 ea Metoprolol Tartrate (Lopressor) 12.5 mg PO BID [facility] Last Admin: 08/09/18 10:15 Dose: 12.5 mg Sodium Chloride ([place] Nasal [place]) 0 ml NS TID PRN PRN Reason: Nasal congestion Last Admin: 08/09/18 10:23 Dose: 1 spr Spironolactone (Aldactone) 25 mg PO BID [facility] Last Admin: 08/09/18 10:15 Dose: 25 mg Ursodiol (Actigall) 300 mg PO BID [facility] Last Admin: 08/09/18 10:16 Dose: 300 mg - Labs Labs: 08/09/18 07:35 08/09/18 07:35 PT 13.5 SECONDS (9.4-12.5) H 08/09/18 07:35 INR 1.17 08/09/18 07:35 APTT 36.0 Seconds (25.1-36.5) 08/04/18 21:45 - Constitutional Appears: No Acute Distress, Cachectic, Chronically Ill - Head Exam Head Exam: ATRAUMATIC, NORMAL INSPECTION - Eye Exam Eye Exam: EOMI, Scleral icterus - ENT Exam ENT Exam: Mucous Membranes Dry. absent: Mucous Membranes Moist - Respiratory Exam Respiratory Exam: NORMAL BREATHING PATTERN. absent: Accessory Muscle Use, Respiratory Distress - GI/Abdominal Exam GI & Abdominal Exam: Soft, Normal Bowel Sounds. absent: Bruit, Distended, Firm, Guarding, Rigid, Tenderness, Mass, Organomegaly, Pulsatile Mass Assessment and Plan - Assessment and Plan (Free Text) Assessment: 78 yo WF with multiple comorbities including cirrhosis, CAD, Pulm HTN, COPD, Aortic Stenosis sent in [facility] for weakness and hypokalemia. 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 Suspect Cardiac or PAULA. Increased bilirubin is concerning from 2s to 8.2 on admission, INR 1.42 on admission with MELD-Na 20. - PVT: Seen on admission CT, Doppler did not reveal any thrombus - EV: Last EGD 4 yrs ago, unknown results - HCC: No masses seen on admission CT - Ascites: On Spironolactone and Furoseide though not in typical ratio - Hepatic Encephalopathy: NH3 elevated on 08/08/18; unclear trigger, no obvious signs of bleeding, infection, WINIFRED, etc. # CHF, CAD, Pulm HTN, Right sided CHF, Severe # COPD # H/o Colonic AVMs Plan: - Abd Doppler reviewed: No obvious thrombus, patent vessels. Splenomegaly with varices. No ascites - MRCP with Abd MRI reviewed: Severe dilation of proximal CBD 16mm and normal distal CBD 3mm possibly due to CBD stricture. Pt is high risk for complications with ERCP/EUS with extensive co-morbidities. - Low direct bilirubin is an unexpected finding in setting of possible biliary obstruction. Indirect could be from hemolysis, poor cardiac output to liver among others. - Cont Ursodiol - Cardiology consult, appreciate recs - Monitor CMP, CBC, INR daily - Low Na diet pending speech therapy eval - Miralax - Cont diuretics - Stop PPI due to progressive thrombocytopenia - Agree with lactulose, titrate to at least 3 BMs/day Pt seen and examined with Dr. Freitas; please see attestation for further recs/changes <Stewart Freitas V - Last Filed: 08/09/18 23:38> Objective - Vital Signs/Intake and Output Vital Signs (last 24 hours): Temp Pulse Resp BP Pulse Ox 98.1 F 87 18 106/51 L 97 08/09/18 18:00 08/09/18 18:00 08/09/18 18:00 08/09/18 18:00 08/09/18 06:00 - Medications Medications: Current Medications Calcium/Vitamin D (Oscal-D 250 Mg-125 Units Tab) 1 tab PO DAILY [facility] Last Admin: 08/09/18 10:15 Dose: 1 tab Furosemide (Lasix) 80 mg PO BID [facility] Last Admin: 08/09/18 17:25 Dose: 80 mg Lactulose (Enulose) 10 gm PO BID [facility] Last Admin: 08/09/18 17:24 Dose: 10 gm Levalbuterol HCl (Xopenex) 0.63 mg IH TIDRESP [facility] Last Admin: 08/09/18 20:16 Dose: 0.63 mg Lidocaine (Lidoderm) 1 ea TD DAILY [facility] Last Admin: 08/09/18 10:16 Dose: 1 ea Metoprolol Tartrate (Lopressor) 12.5 mg PO BID [facility] Last Admin: 08/09/18 17:24 Dose: 12.5 mg Sodium Chloride ([place] Nasal [place]) 0 ml NS TID PRN PRN Reason: Nasal congestion Last Admin: 08/09/18 10:23 Dose: 1 spr Spironolactone (Aldactone) 25 mg PO BID [facility] Last Admin: 08/09/18 17:25 Dose: 25 mg Ursodiol (Actigall) 300 mg PO BID [facility] Last Admin: 08/09/18 17:24 Dose: 300 mg - Labs Labs: 08/09/18 07:35 08/09/18 07:35 PT 13.5 SECONDS (9.4-12.5) H 08/09/18 07:35 INR 1.17 08/09/18 07:35 APTT 36.0 Seconds (25.1-36.5) 08/04/18 21:45 Attending/Attestation - Attestation I have personally seen and examined this patient.: Yes I have fully participated in the care of the patient.: Yes I have reviewed all pertinent clinical information, including history, physical exam and plan: Yes Notes (Text): This is an addendum to GI progress report dictated by the GI Fellow. The patient was seen and examined earlier. Medical records, lab studies, imagings were reviewed. Last 24 hours events reviewed. Agreed with the above treatment plan as outlined in GI Fellow 's notes with the addition of the following this 78-year-old patient with multiple comorbidities, CHF increased right ventricular systolic pressure probable pulmonary hypertensionwas admitted with elevated LFT MRCP showed a probable stricture in the bile duct etiology unclear Discussed with the cardiology, extremely high risk patient for an endoscopy pr ocedure Follow-up LFT Continue Actigall PPI has been discontinued in view of thrombocytopenia supportive care 08/09/18 23:35
--- NOTE | 2018-08-09 17:24 | CARD ---
APPROVED REPORT Date of service: 08/09/2018 EKG Measurement Heart [id number] <Conclusion> Sinus rhythm with marked sinus arrhythmia Right bundle branch block Voltage criteria for left ventricular hypertrophy Abnormal ECG
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
--- NOTE | 2018-08-09 20:13 | PN ---
DATE: 08/09/2018 REASON FOR CONSULTATION: For cardiac evaluation, positive troponin, admitted with hypokalemia, generalized weakness, history of diabetes, COPD, dementia, hypertension, chronic diastolic dysfunction, congestive heart failure, severe aortic stenosis, refused TAVR, cryptogenic cirrhosis, severe thrombocytopenia, frequent nosebleed, off aspirin and Plavix, PTCA of RCA. This note is in addition to dictated by the nurse practitioner, Deisi Nair. LABORATORY DATA: Today's lab showed WBC 11.8, hemoglobin 11.8, hematocrit 35.2, platelet count 33. Sodium 130, potassium 4.1, chloride 93, carbon dioxide 31, anion gap of 10, BUN 16, creatinine 1. Troponin 0.01. IMPRESSION: A 78-year-old female with past medical history significant for coronary artery disease in 2008, history of cryptogenic cirrhosis, severe thrombocytopenia, history of frequent nosebleed, history of severe aortic stenosis, refused transcatheter aortic valve replacement in the past, weak, cachectic. Overall, the patient severely appears to be malnourished, moderate protein-calorie malnutrition, albumin 2.7, which was not present on admission; history of aortic stenosis, history of cryptogenic cirrhosis, ascites, and severe thrombocytopenia. In view of above, the patient is not on anticoagulation because of the frequent nosebleed, not on aspirin, not on Plavix, cannot tolerate it. RECOMMENDATIONS: Continue supportive care. Discussed with Dr. Freitas,[place] filler, who will treat the patient medically, discussed with him. Unfortunately, overall, the patient's condition is critical; long-term prognosis is extremely guarded. Consider DNR/DNI. We will discuss with Dr. Rg. Thank you Dr. Rg for providing us the opportunity in taking care of the patient, Maria D Sullivan. Again, this note is in addition to dictated by the nurse practitioner, Deisi Nair. Pablo Guillermo MD
--- NOTE | 2018-08-09 21:39 | PN ---
DATE: 08/09/2018 This is [facility] visit on telemetry. For Dr. Peña. SUBJECTIVE: The patient is a 78-year-old female, sitting up in bed, somnolent, but arousable, with platelet count being monitored, with the patient known to suffer from cryptogenic cirrhosis with thrombocytopenic indices, with the patient in no acute distress at this visit. However, it should be noted that rapid response was reported yesterday for the patient with a mental status change, with hypoglycemia noted, and a reported failed Dobhoff insertion, with pneumonia level known to be 111, with lactulose enema given with good effect. OBJECTIVE/PHYSICAL EXAMINATION: VITAL SIGNS: Temperature 98.1, pulse 75, respirations 18, blood pressure 106/51 with a pulse ox of 97%. HEENT: Unremarkable except for icteric sclerae. NECK: Supple. HEART: Regular rate, 1/6 systolic ejection murmur. LUNGS: Faint crackles at the bases. ABDOMEN: Soft, nontender. EXTREMITIES: No edema. SKIN: Warm and dry. NEUROLOGIC: The patient is lethargic, but arousable. LABORATORY DATA: The patient's labs were done. White blood cell count 11.8, hemoglobin 11.8, hematocrit 35.2, platelet count of 33,000 with a manual count of 60,000. INR 1.17. Metabolic panel showing a sodium of 130, chloride of 93, BUN of 61 with normal creatinine of 1.0. Nonfasting glucose 169. Total bili of 9.3. AST of 46. Ammonia level of 35. As reported, the ammonia level was 111 yesterday; it is now 35 after lactulose enemas were given for a rapid response. The patient has had an EKG done earlier today; it was read as sinus rhythm with marked sinus arrhythmia, right bundle-branch block, voltage criteria for LVH, abnormal EKG. ASSESSMENT: For this patient is that of cryptogenic cirrhosis with associated thrombocytopenia; however, no active bleeding noted. Congestive heart failure, chronic obstructive pulmonary disease exacerbation, aortic valve stenosis, hepatic encephalopathy, subendocardial myocardial infarction, atherosclerotic cardiovascular disease, diabetes mellitus, pulmonary hypertension. PLAN: For this patient is to monitor clinically with labs, with the prognosis for this patient guarded. This is a complex patient with a comprehensive medically necessary and appropriate visit carried out in excess of 15 minutes with the patient's case reviewed with consultants. Andrzej Connor MD
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
[2018-08-10 07:38] LABS: BASO # 0.01 K/mm3 (0.0-2.0); BASO % 0.1 % (0.0-3.0); EOS # 0.5 (0.0-0.7); EOS % 4.8 % (1.5-5.0); GRAN # 7.87 (1.4-6.5); GRAN % 78.4 % (50.0-68.0); HEMOGLOBIN 12.3 g/dL (12.0-16.0); LYMPH % 10.1 % (22.0-35.0); MEAN CELL VOLUME 93.6 fl (80.0-105.0); MEAN CORPUSCULAR HEMOGLOBIN 31.5 pg (25.0-35.0); MEAN CORPUSCULAR HGB CONC 33.6 g/dl (31.0-37.0); MEAN PLATELET VOLUME 11.4 fl (7.0-11.0); MONO # 0.7 (0.1-0.6); MONO % 6.6 % (1.0-6.0); RBC 3.91 10^6/uL (3.5-6.1); RED CELL DISTRIBUTION WIDTH 16.2 % (11.5-14.5)
[2018-08-10 07:42] LABS: PLATELET COUNT 39 10^3/uL (120.0-450.0)
[2018-08-10 07:52] LABS: ALB/GLOB RATIO 0.9 (1.1-1.8); ALBUMIN 2.9 g/dL (3.0-4.8); ALT/SGPT 49 U/L (7-56); AST/SGOT 44 U/L (14-36); BLOOD UREA NITROGEN 53 mg/dL (7-21); CALCIUM 9.1 mg/dL (8.4-10.5); GFR NON-AFRICAN AMERICAN 54
[2018-08-10 08:10] LABS: FREE T4 1.89 ng/dL (0.78-2.19)
[2018-08-10 08:27] LABS: PLATELET COUNT MANUAL 45 K/mm3 (120-450)
[2018-08-10] MEDS: Levalbuterol 0.63 MG/3 ML Inhal Soln UD IH SCH ×3 (08:33→19:35)
[2018-08-10] MEDS ORDERED: Potassium Chloride 20 mEq ER Tab PO ONE (08:55)
[2018-08-10] MEDS: Calcium-Vit D 250 mg-125 Units Tab UD PO SCH (09:40)
[2018-08-10] MEDS: Lidocaine 5% Patch TD SCH (09:43)
--- NOTE | 2018-08-10 11:28 | PN ---
DATE: 08/10/2018 PULMONARY PROGRESS NOTE REFERRING PHYSICIAN: Dr. Kristin Rg. SUBJECTIVE: The patient is sitting up in bed, head of bed elevated. Reports feeling well today. No acute distress. No headache, rhinitis, cough, shortness of breath, chest pain, abdomina pain, nausea, vomiting, diarrhea, leg pain, or leg swelling reported. OBJECTIVE: GENERAL: No acute distress. VITAL SIGNS: Blood pressure 112/51, pulse 61, and temperature 97.4. HEENT: Moist mucous membranes. Small oral cavity. NECK: Supple. No JVD. LUNGS: Few rhonchi bilaterally. CARDIOVASCULAR: S1 and S2 audible. Positive murmur. ABDOMEN: Soft and nontender. No distention. No organomegaly. EXTREMITIES: No bilateral lower extremity edema. NEUROLOGIC: Awake, alert, and verbal. Follows commands. MEDICATIONS: Reviewed. Os-Cristo one tab daily, Lasix 80 mg twice a day, Motrin 400 mg every 6 hours, lactulose 10 g twice a day, Xopenex 0.63 mg inhalation three times a day, Lidocaine patch 1 topically daily to affected area, metoprolol tartrate 12.5 mg twice a day, [place] nasal spray three times a day p.r.n., spironolactone 25 mg twice a day, and Ursodiol 300 mg twice a day. LABORATORY DATA: Reviewed. WBC 10, RBC 3.91, hemoglobin 12.3, hematocrit 36.6, and platelets 39. Sodium 131, potassium 3.6, chloride 91, carbon dioxide 35, anion gap 8, BUN 53, creatinine 1. GFR 54, random glucose 97, calcium 9.1, total bilirubin 8, AST 44, ALT 49, alkaline phosphatase 98, total protein 6.2, albumin 2.9, globulin 3.3, and albumin-globulin ratio 0.9. IMPRESSION AND PLAN: Chronic obstructive lung disease, suspected sleep apnea syndrome, cardiomyopathy, severe valvular heart disease, coronary artery disease, pulmonary hypertension, cryptogenic cirrhotic liver disease, portal thrombus, hypertension, history of lower extremity cellulitis, malnutrition, history of esophageal, gastric, and duodenal ulcers and compression fractures. Pulmonary point of view; sleep apnea precaution, head of bed elevated at 45 degrees. The patient continues to refuse continuous positive airway pressure machine use. Continue inhaled bronchodilators. Continue SCDs, deep venous thrombosis prophylaxis, and gastric prophylaxis. The patient would benefit from physical therapy. This patient was seen and examined with Dr. Cantor. Discussed assessment and plan as described above. Thank you for this consult. We will follow with you. Alec Marie APN Pablo Cantor MD
--- NOTE | 2018-08-10 11:45 | PN ---
DATE: 08/10/2018 REASON FOR THE CONSULTATION AND FOLLOWUP: Chest pain; coronary artery disease; chest discomfort, left side of the ribs; borderline troponin positive; history of coronary artery disease; history of severe aortic stenosis; cryptogenic cirrhosis; thrombocytopenia; severe aortic stenosis, refused TAVR. This note is in addition to dictated by the nurse practitioner, Deisi Nair. SUBJECTIVE: The patient complained of still chest pain, left-sided, was very tender in the lower rib cage. OBJECTIVE: VITAL SIGNS: Stable. Temperature 97, heart rate 61, and blood pressure 101/55. LABORATORY DATA: Today's platelet is 39, manually 45. Sodium 131 and potassium 3.6. IMPRESSION: This is a 78-year-old female with a past medical history significant for coronary artery disease, status post percutaneous transluminal coronary angioplasty of right coronary artery in 2008; history of severe aortic stenosis, refused transcatheter aortic valve replacement in the past; cryptogenic cirrhosis; history of thrombocytopenia; frequent nosebleed without any aspirin and Plavix. Last echocardiogram on 11/17/2017 shows ejection fraction of 60% to 65%, moderately dilated right ventricle, moderate mitral regurgitation, moderate tricuspid regurgitation, right ventricular systolic pressure 61. Moderate pulmonary hypertension; severe thrombocytopenia secondary to cryptogenic cirrhosis; chest pain, musculoskeletal, tenderness in the left rib cage. RECOMMENDATIONS: We will give 2 doses of ibuprofen, treat the patient symptomatic. The patient is terminally ill dying. Overall, the patient's condition is critical. Long-term prognosis is extremely guarded. Continue low-dose beta-kirby. Consider DNR/DNI. We will follow with you. Discussed with Dr. Freitas yesterday. We will discuss with you. We will supplement potassium. The patient is already on spironolactone. In addition, we will give 40 of K-Dur to supplement potassium. Though the patient has a positive troponin of 0.29, but overall the patient condition is such weak is not a candidate to go to the geophysical laboratory supervisor. Now, the pain is nonischemic. Existing procedure will be more detrimental for her baseline. The patient has a platelet 30's without any dual antiplatelet therapy and frequent nose bleed. So, we will treat medically. Thank you Dr. Rg for providing us the opportunity in taking care of the patient, Maria D Sullivan. Pablo Guillermo MD
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
--- NOTE | 2018-08-10 12:52 | CP.PCM.PN ---
Subjective - Date & Time of Evaluation Date of Evaluation: 08/10/18 Time of Evaluation: 10:20 - Subjective Subjective: S&E at bedside, chart reviewed. No acute overnight events as per nursing staff. Patient endorsed improved appetite. No N/V or abdominal pain, except for chest discomfort which patient endorsed to cardiology. No acute distress. Patient h aving bowel movements no bleeding. Had sputum with tinge of blood noted on tissue this am. No further episode. Objective - Vital Signs/Intake and Output Vital Signs (last 24 hours): Temp Pulse Resp BP Pulse Ox 97.4 F L 88 20 104/50 L 97 08/10/18 06:00 08/10/18 09:41 08/10/18 06:00 08/10/18 09:41 08/09/18 06:00 Intake and Output: 08/10/18 08/10/18 06:59 18:59 Intake Total 300 Output Total 700 Balance -400 - Medications Medications: Current Medications Calcium/Vitamin D (Oscal-D 250 Mg-125 Units Tab) 1 tab PO DAILY [facility] Last Admin: 08/10/18 09:40 Dose: 1 tab Furosemide (Lasix) 80 mg PO BID [facility] Last Admin: 08/10/18 09:41 Dose: 80 mg Ibuprofen (Motrin Tab) 400 mg PO Q6H [facility] Stop: 08/10/18 21:01 Last Admin: 08/10/18 09:40 Dose: 400 mg Lactulose (Enulose) 10 gm PO BID [facility] Last Admin: 08/10/18 09:42 Dose: 10 gm Levalbuterol HCl (Xopenex) 0.63 mg IH TIDRESP [facility] Last Admin: 08/10/18 08:33 Dose: 0.63 mg Lidocaine (Lidoderm) 1 ea TD DAILY [facility] Last Admin: 08/10/18 09:43 Dose: 1 ea Metoprolol Tartrate (Lopressor) 12.5 mg PO BID [facility] Last Admin: 08/10/18 09:41 Dose: 12.5 mg Sodium Chloride ([place] Nasal [place]) 0 ml NS TID PRN PRN Reason: Nasal congestion Last Admin: 08/10/18 09:52 Dose: 2 spr Spironolactone (Aldactone) 25 mg PO BID [facility] Last Admin: 08/10/18 09:42 Dose: 25 mg Ursodiol (Actigall) 300 mg PO BID [facility] Last Admin: 08/10/18 09:40 Dose: 300 mg - Labs Labs: 08/10/18 07:30 08/10/18 07:30 PT 13.5 SECONDS (9.4-12.5) H 08/09/18 07:35 INR 1.17 08/09/18 07:35 APTT 36.0 Seconds (25.1-36.5) 08/04/18 21:45 - Constitutional Appears: No Acute Distress - Eye Exam Eye Exam: Normal appearance. absent: Scleral icterus - ENT Exam ENT Exam: Mucous Membranes Moist - Neck Exam Neck Exam: Normal Inspection - Respiratory Exam Respiratory Exam: Decreased Breath Sounds, NORMAL BREATHING PATTERN. absent: Respiratory Distress - Cardiovascular Exam Cardiovascular Exam: +S1, +S2 - GI/Abdominal Exam GI & Abdominal Exam: Soft, Normal Bowel Sounds. absent: Guarding, Tenderness, Rebound - Extremities Exam Extremities Exam: absent: Calf Tenderness, Pedal Edema - Neurological Exam Neurological Exam: Alert, Awake, Oriented x3 - Skin Skin Exam: Dry, Warm Assessment and Plan - Assessment and Plan (Free Text) Assessment: ASSESSMENT: Cryptogenic Liver Cirrhosis with thrombocytopenia Improved appetite Ascites Resolved Hepatic Encephalopathy H/O Colonic AVM CHF CAD COPD PLAN: continue Lactulose, titrate to 2 stool/day monitor electrolytes, CBC, monitor for overt GI bleeding continue Ursodiol on Lasix and Aldactone diet as tolerated on low sodium off PPI, thrombocytopenia cardio and hematology FU Seen and discussed w/ Dr. Chavez.
[2018-08-10 13:43] LABS: BCR-ABL SOURCE WB; P190 BCR-ABL1 NOT DETECTED; P210 BCR-ABL1 NOT DETECTED
--- NOTE | 2018-08-10 14:42 | CP.PCM.PN ---
Subjective - Date & Time of Evaluation Date of Evaluation: 08/10/18 Time of Evaluation: 14:41 - Subjective Subjective: RENAL Note s: seen and examined pt feels better. mental status better after lactulose and ammonia level trended down she denies SOB pe: vs as below. frail chronically ill appearing gen: nad sclera: icteric op: clear neck: supple cv: +S1+s2 no rub lungs: cta ant abd: soft nt nd no organomegaly ext: no edema neuro: following command awake today psych: flat skin redness b/l lower extremities imp: hypokalemia/ chf / alkalosis/ anemia/hyponatremia/cirrhosis with portal HTN, hepatic enceph/severe with RV dysfunction/thrombocytopenia plan: k remains stable. supplement as needed CHF management as per cardio pt on lasix and aldactone pt not a candidate for samsca due to cirrhosis GI and cardiology following started lactulose prognosis guarded Objective - Vital Signs/Intake and Output Vital Signs (last 24 hours): Temp Pulse Resp BP Pulse Ox 98.2 F 77 14 94/43 L 97 08/10/18 12:00 08/10/18 12:00 08/10/18 12:00 08/10/18 12:00 08/09/18 06:00 Intake and Output: 08/10/18 08/10/18 06:59 18:59 Intake Total 300 Output Total 700 Balance -400 - Medications Medications: Current Medications Calcium/Vitamin D (Oscal-D 250 Mg-125 Units Tab) 1 tab PO DAILY [facility] Last Admin: 08/10/18 09:40 Dose: 1 tab Furosemide (Lasix) 80 mg PO BID [facility] Last Admin: 08/10/18 09:41 Dose: 80 mg Ibuprofen (Motrin Tab) 400 mg PO Q6H [facility] Stop: 08/10/18 21:01 Last Admin: 08/10/18 09:40 Dose: 400 mg Lactulose (Enulose) 10 gm PO BID [facility] Last Admin: 08/10/18 09:42 Dose: 10 gm Levalbuterol HCl (Xopenex) 0.63 mg IH TIDRESP [facility] Last Admin: 08/10/18 13:50 Dose: 0.63 mg Lidocaine (Lidoderm) 1 ea TD DAILY [facility] Last Admin: 08/10/18 09:43 Dose: 1 ea Metoprolol Tartrate (Lopressor) 12.5 mg PO BID [facility] Last Admin: 08/10/18 09:41 Dose: 12.5 mg Sodium Chloride ([place] Nasal [place]) 0 ml NS TID PRN PRN Reason: Nasal congestion Last Admin: 08/10/18 09:52 Dose: 2 spr Spironolactone (Aldactone) 25 mg PO BID [facility] Last Admin: 08/10/18 09:42 Dose: 25 mg Ursodiol (Actigall) 300 mg PO BID [facility] Last Admin: 08/10/18 09:40 Dose: 300 mg - Labs Labs: 08/10/18 07:30 08/10/18 07:30 PT 13.5 SECONDS (9.4-12.5) H 08/09/18 07:35 INR 1.17 08/09/18 07:35 APTT 36.0 Seconds (25.1-36.5) 08/04/18 21:45
--- NOTE | 2018-08-10 17:03 | CP.PCM.PN ---
Subjective - Date & Time of Evaluation Date of Evaluation: 08/10/18 Time of Evaluation: 10:00 - Subjective Subjective: awake and alert, NAD Objective - Vital Signs/Intake and Output Vital Signs (last 24 hours): Temp Pulse Resp BP Pulse Ox 98.2 F 77 14 94/43 L 97 08/10/18 12:00 08/10/18 12:00 08/10/18 12:00 08/10/18 12:00 08/09/18 06:00 Intake and Output: 08/10/18 08/10/18 06:59 18:59 Intake Total 300 Output Total 700 Balance -400 - Medications Medications: Current Medications Calcium/Vitamin D (Oscal-D 250 Mg-125 Units Tab) 1 tab PO DAILY [facility] Last Admin: 08/10/18 09:40 Dose: 1 tab Furosemide (Lasix) 80 mg PO BID [facility] Last Admin: 08/10/18 09:41 Dose: 80 mg Ibuprofen (Motrin Tab) 400 mg PO Q6H [facility] Stop: 08/10/18 21:01 Last Admin: 08/10/18 15:11 Dose: 400 mg Lactulose (Enulose) 10 gm PO BID [facility] Last Admin: 08/10/18 09:42 Dose: 10 gm Levalbuterol HCl (Xopenex) 0.63 mg IH TIDRESP [facility] Last Admin: 08/10/18 13:50 Dose: 0.63 mg Lidocaine (Lidoderm) 1 ea TD DAILY [facility] Last Admin: 08/10/18 09:43 Dose: 1 ea Metoprolol Tartrate (Lopressor) 12.5 mg PO BID [facility] Last Admin: 08/10/18 09:41 Dose: 12.5 mg Sodium Chloride ([place] Nasal [place]) 0 ml NS TID PRN PRN Reason: Nasal congestion Last Admin: 08/10/18 09:52 Dose: 2 spr Spironolactone (Aldactone) 25 mg PO BID [facility] Last Admin: 08/10/18 09:42 Dose: 25 mg Ursodiol (Actigall) 300 mg PO BID [facility] Last Admin: 08/10/18 09:40 Dose: 300 mg - Labs Labs: 08/10/18 07:30 08/10/18 07:30 PT 13.5 SECONDS (9.4-12.5) H 08/09/18 07:35 INR 1.17 08/09/18 07:35 APTT 36.0 Seconds (25.1-36.5) 08/04/18 21:45 - Respiratory Exam Respiratory Exam: Clear to Ausculation Bilateral, NORMAL BREATHING PATTERN - Cardiovascular Exam Cardiovascular Exam: REGULAR RHYTHM - GI/Abdominal Exam GI & Abdominal Exam: Soft, Normal Bowel Sounds - Extremities Exam Extremities Exam: Normal Inspection - Neurological Exam Neurological Exam: Alert, Awake - Skin Skin Exam: Dry, Warm Assessment and Plan (1) Cirrhosis Status: Acute (2) CHF (congestive heart failure) Status: Chronic (3) COPD exacerbation Status: Chronic (4) Critical aortic valve stenosis Status: Chronic (5) Thrombocytopenia Status: Chronic - Assessment and Plan (Free Text) Plan: continue present tx/SW for DC Planning
[2018-08-11] MEDS: Levalbuterol 0.63 MG/3 ML Inhal Soln UD IH SCH ×3 (07:23→21:50)
[2018-08-11] MEDS: Lidocaine 5% Patch TD SCH (09:40)
[2018-08-11] MEDS: Calcium-Vit D 250 mg-125 Units Tab UD PO SCH (09:45)
--- NOTE | 2018-08-11 10:06 | CP.PCM.PN ---
Subjective - Date & Time of Evaluation Date of Evaluation: 08/11/18 Time of Evaluation: 09:00 - Subjective Subjective: c/o cramping pain of arms intermittently, denies chest pain, no SOB Objective - Vital Signs/Intake and Output Vital Signs (last 24 hours): Temp Pulse Resp BP Pulse Ox 97.1 F L 63 18 104/48 L 97 08/10/18 18:00 08/11/18 02:00 08/10/18 18:00 08/11/18 09:44 08/09/18 06:00 Intake and Output: 08/11/18 08/11/18 06:59 18:59 Intake Total 900 Output Total 401 Balance 499 - Medications Medications: Current Medications Calcium/Vitamin D (Oscal-D 250 Mg-125 Units Tab) 1 tab PO DAILY [facility] Last Admin: 08/11/18 09:45 Dose: 1 tab Furosemide (Lasix) 80 mg PO BID [facility] Last Admin: 08/11/18 09:44 Dose: 80 mg Lactulose (Enulose) 10 gm PO BID [facility] Last Admin: 08/11/18 09:42 Dose: 10 gm Levalbuterol HCl (Xopenex) 0.63 mg IH TIDRESP [facility] Last Admin: 08/11/18 07:23 Dose: 0.63 mg Lidocaine (Lidoderm) 1 ea TD DAILY [facility] Last Admin: 08/11/18 09:40 Dose: 1 ea Metoprolol Tartrate (Lopressor) 12.5 mg PO BID [facility] Last Admin: 08/11/18 09:43 Dose: 12.5 mg Sodium Chloride ([place] Nasal [place]) 0 ml NS TID PRN PRN Reason: Nasal congestion Last Admin: 08/10/18 09:52 Dose: 2 spr Spironolactone (Aldactone) 25 mg PO BID [facility] Last Admin: 08/11/18 09:43 Dose: 25 mg Ursodiol (Actigall) 300 mg PO BID [facility] Last Admin: 08/11/18 09:44 Dose: 300 mg - Labs Labs: 08/10/18 07:30 08/10/18 07:30 PT 13.5 SECONDS (9.4-12.5) H 08/09/18 07:35 INR 1.17 08/09/18 07:35 APTT 36.0 Seconds (25.1-36.5) 08/04/18 21:45 - Respiratory Exam Respiratory Exam: Clear to Ausculation Bilateral, NORMAL BREATHING PATTERN - Cardiovascular Exam Cardiovascular Exam: REGULAR RHYTHM - GI/Abdominal Exam GI & Abdominal Exam: Soft, Normal Bowel Sounds - Extremities Exam Extremities Exam: Normal Inspection - Neurological Exam Neurological Exam: Alert, Awake Assessment and Plan (1) Cirrhosis Status: Acute (2) CHF (congestive heart failure) Status: Chronic (3) COPD exacerbation Status: Chronic (4) Critical aortic valve stenosis Status: Chronic (5) Thrombocytopenia Status: Chronic - Assessment and Plan (Free Text) Plan: check labs in am, continue present tx
--- NOTE | 2018-08-11 10:33 | PN ---
DATE: 08/11/2018 SUBJECTIVE: The patient is in bed, in no acute distress, nontoxic. PHYSICAL EXAMINATION: VITAL SIGNS: Temperature 97, blood pressure 110/40, respiratory rate of 16. HEENT : Unremarkable. NECK: Supple. LUNGS: Have decreased breath sounds. HEART: Normal S1, S2. ABDOMEN: Soft, nontender. LABORATORY DATA: White count of 10,000, hemoglobin of 12, platelets of 39,000. BUN of 53, creatinine of 1. Microbiology reveals the Proteus mirabilis is noted. Review of orders reveals the patient to be off of antibiotics. IMPRESSION: A 78-year-old female with asymptomatic bacteriuria, hypokalemia, history of left leg cellulitis, chronic edema, hypertension, diabetes, chronic obstructive lung disease, coronary artery disease, history of depression, cryptogenic liver cirrhosis, GI AV malformation. Currently off of antibiotics, afebrile. The patient is at risk for developing nosocomial infections. Abram Benitez MD
[2018-08-11 10:34] LABS: CHENODEOXYCHOLIC ACID 38.6 umol/L (< OR = 3.9)
--- NOTE | 2018-08-11 13:26 | CP.PCM.PN ---
Subjective - Date & Time of Evaluation Date of Evaluation: 08/11/18 Time of Evaluation: 13:25 - Subjective Subjective: RENAL Note s: seen and examined no events overnight she denies SOB pe: vs as below. frail chronically ill appearing gen: nad sclera: icteric op: clear neck: supple cv: +S1+s2 no rub lungs: cta ant abd: soft nt nd no organomegaly ext: no edema neuro: following command awake today psych: flat skin redness b/l lower extremities imp: hypokalemia/ chf / alkalosis/ anemia/hyponatremia/cirrhosis with portal HTN, hepatic enceph/severe with RV dysfunction/thrombocytopenia plan: lytes reviewed, monitor, replace and recheck as needed CHF management as per cardio pt on lasix and aldactone pt not a candidate for samsca due to cirrhosis GI and cardiology following on lactulose per primary team prognosis guarded Objective - Vital Signs/Intake and Output Vital Signs (last 24 hours): Temp Pulse Resp BP Pulse Ox 97.1 F L 63 18 104/48 L 97 08/10/18 18:00 08/11/18 02:00 08/10/18 18:00 08/11/18 09:44 08/09/18 06:00 Intake and Output: 08/11/18 08/11/18 06:59 18:59 Intake Total 900 Output Total 401 Balance 499 - Medications Medications: Current Medications Calcium/Vitamin D (Oscal-D 250 Mg-125 Units Tab) 1 tab PO DAILY [facility] Last Admin: 08/11/18 09:45 Dose: 1 tab Furosemide (Lasix) 80 mg PO BID [facility] Last Admin: 08/11/18 09:44 Dose: 80 mg Lactulose (Enulose) 10 gm PO BID [facility] Last Admin: 08/11/18 09:42 Dose: 10 gm Levalbuterol HCl (Xopenex) 0.63 mg IH TIDRESP [facility] Last Admin: 08/11/18 13:12 Dose: 0.63 mg Lidocaine (Lidoderm) 1 ea TD DAILY [facility] Last Admin: 08/11/18 09:40 Dose: 1 ea Metoprolol Tartrate (Lopressor) 12.5 mg PO BID [facility] Last Admin: 08/11/18 09:43 Dose: 12.5 mg Sodium Chloride ([place] Nasal [place]) 0 ml NS TID PRN PRN Reason: Nasal congestion Last Admin: 08/11/18 11:11 Dose: 2 spr Spironolactone (Aldactone) 25 mg PO BID [facility] Last Admin: 08/11/18 09:43 Dose: 25 mg Ursodiol (Actigall) 300 mg PO BID [facility] Last Admin: 08/11/18 09:44 Dose: 300 mg - Labs Labs: 08/10/18 07:30 08/10/18 07:30 PT 13.5 SECONDS (9.4-12.5) H 08/09/18 07:35 INR 1.17 08/09/18 07:35 APTT 36.0 Seconds (25.1-36.5) 08/04/18 21:45
--- NOTE | 2018-08-11 18:06 | PN ---
DATE: 08/11/[address] Freitas, Dr. Chavez covering. SUBJECTIVE: The patient is lying in bed. She is extremely weak. She denies any overt GI bleeding, nausea, vomiting or abdominal pain. PHYSICAL EXAMINATION VITAL SIGNS: Reveal blood pressure of 108/48, heart rate 63. She is afebrile. HEENT: Reveals sclerae to be white. Conjunctivae pale. NECK: Supple. CHEST: Reveals distant breath sounds. HEART: Reveals regular rate and rhythm. ABDOMEN: Soft, nontender. EXTREMITIES: Show trace edema. LABORATORY DATA: Reveal no new data from this morning. IMPRESSION: 1. 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 2. Status post hepatic encephalopathy. RECOMMENDATIONS: 1. Continue lactulose, ursodiol, Lasix and Aldactone. 2. Follow platelet count. The patient's long-term prognosis is extremely poor. Zenon Chavez MD
--- NOTE | 2018-08-11 21:11 | PN ---
DATE: 08/11/2018 REFERRING PHYSICIAN: Kristin Rg MD SUBJECTIVE: The patient is out of bed to chair, tired and sleepy. Night was unremarkable. Did not use CPAP. No nausea, no vomiting, no diarrhea. Not much leg swelling. OBJECTIVE GENERAL: In no acute distress. VITAL SIGNS: Temperature is 98, heart rate is 80, respiratory rate is 16, blood pressure is 108/45, pulse ox 97% on nasal cannula. HEENT: Moist mucous membranes. Crowded airway. NECK: Supple. No JVD. LUNGS: Decreased breath sounds on the bases. Scattered rhonchi. HEART: S1 and S2 with murmur. ABDOMEN: Soft, nontender. No organomegaly. EXTREMITIES: Not much edema. NEUROLOGICAL: Sleepy, arousable. Follows simple command. MEDICATIONS: She is on Actigall 300 mg twice a day, Aldactone 25 mg twice a day, lactulose 10 g twice a day, Lasix 80 mg twice a day, lidocaine to affected area daily, metoprolol tartrate 12.5 mg twice a day, nasal saline three times a day p.r.n., vitamin D and calcium one tab daily, Xopenex inhaler every 8 hours. LABORATORY DATA: Blood sugar this morning is 216. Urine culture has Proteus mirabilis. 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 Pulmonary point of view, doing okay. We will try CPAP 5 cm while sleeping. Keep head at 45 degrees. Fall precaution. Physical therapy. Also has urinary tract infection. Antibiotics as per Infectious Disease. Thank you and we will follow with you. Pablo Cantor MD
[2018-08-12 06:27] LABS: BASO # 0.01 K/mm3 (0.0-2.0); BASO % 0.1 % (0.0-3.0); EOS # 0.6 (0.0-0.7); EOS % 6.8 % (1.5-5.0); GRAN # 5.73 (1.4-6.5); GRAN % 71.4 % (50.0-68.0); HEMOGLOBIN 11.5 g/dL (12.0-16.0); LYMPH # 0.9 (1.2-3.4); LYMPH % 11.5 % (22.0-35.0); MEAN CELL VOLUME 92.8 fl (80.0-105.0); MEAN CORPUSCULAR HEMOGLOBIN 31.7 pg (25.0-35.0); MEAN CORPUSCULAR HGB CONC 34.1 g/dl (31.0-37.0); MEAN PLATELET VOLUME 10.1 fl (7.0-11.0); MONO # 0.8 (0.1-0.6); MONO % 10.2 % (1.0-6.0); RBC 3.63 10^6/uL (3.5-6.1); RED CELL DISTRIBUTION WIDTH 16.5 % (11.5-14.5)
[2018-08-12 06:40] LABS: ALB/GLOB RATIO 0.8 (1.1-1.8); ALBUMIN 2.5 g/dL (3.0-4.8); CALCIUM 8.8 mg/dL (8.4-10.5)
[2018-08-12 06:53] LABS: PLATELET COUNT 44 10^3/uL (120.0-450.0)
[2018-08-12] MEDS: Levalbuterol 0.63 MG/3 ML Inhal Soln UD IH SCH ×3 (07:25→20:31)
[2018-08-12] MEDS: Calcium-Vit D 250 mg-125 Units Tab UD PO SCH (09:11)
[2018-08-12] MEDS: Lidocaine 5% Patch TD SCH (09:14)
--- NOTE | 2018-08-12 11:36 | CP.PCM.PN ---
Subjective - Date & Time of Evaluation Date of Evaluation: 08/12/18 Time of Evaluation: 10:00 - Subjective Subjective: c/o pain in arms, no weakness, no swelling Objective - Vital Signs/Intake and Output Vital Signs (last 24 hours): Temp Pulse Resp BP Pulse Ox 98.1 F 81 20 114/38 L 98 08/12/18 06:00 08/12/18 09:13 08/12/18 06:00 08/12/18 09:14 08/12/18 06:00 Intake and Output: 08/12/18 08/12/18 06:59 18:59 Intake Total 120 Output Total 1200 Balance -1080 - Medications Medications: Current Medications Calcium/Vitamin D (Oscal-D 250 Mg-125 Units Tab) 1 tab PO DAILY [facility] Last Admin: 08/12/18 09:11 Dose: 1 tab Furosemide (Lasix) 80 mg PO BID [facility] Last Admin: 08/12/18 09:14 Dose: 80 mg Insulin Human Regular (Humulin R Low) 0 units SC ACHS [facility]; Protocol Lactulose (Enulose) 10 gm PO BID [facility] Last Admin: 08/12/18 09:11 Dose: 10 gm Levalbuterol HCl (Xopenex) 0.63 mg IH TIDRESP [facility] Last Admin: 08/12/18 07:25 Dose: 0.63 mg Lidocaine (Lidoderm) 1 ea TD DAILY [facility] Last Admin: 08/12/18 09:14 Dose: 1 ea Meloxicam (Mobic) 15 mg PO DAILY [facility] Metoprolol Tartrate (Lopressor) 12.5 mg PO BID [facility] Last Admin: 08/12/18 09:13 Dose: 12.5 mg Sodium Chloride ([place] Nasal [place]) 0 ml NS TID PRN PRN Reason: Nasal congestion Last Admin: 08/12/18 09:14 Dose: 2 spr Spironolactone (Aldactone) 25 mg PO BID [facility] Last Admin: 08/12/18 09:11 Dose: 25 mg Ursodiol (Actigall) 300 mg PO BID [facility] Last Admin: 08/12/18 09:11 Dose: 300 mg - Labs Labs: 08/12/18 05:30 08/12/18 05:30 PT 13.5 SECONDS (9.4-12.5) H 08/09/18 07:35 INR 1.17 08/09/18 07:35 APTT 36.0 Seconds (25.1-36.5) 08/04/18 21:45 - Respiratory Exam Respiratory Exam: Clear to Ausculation Bilateral, NORMAL BREATHING PATTERN - Cardiovascular Exam Cardiovascular Exam: REGULAR RHYTHM - GI/Abdominal Exam GI & Abdominal Exam: Soft, Normal Bowel Sounds - Extremities Exam Extremities Exam: Normal Inspection - Neurological Exam Neurological Exam: Alert, Awake Neuro motor strength exam: Left Upper Extremity: 4, Right Upper Extremity: 4, Left Lower Extremity: 4, Right Lower Extremity: 4 - Skin Skin Exam: Dry, Warm Assessment and Plan (1) Cirrhosis Status: Acute (2) CHF (congestive heart failure) Status: Chronic (3) COPD exacerbation Status: Chronic (4) Critical aortic valve stenosis Status: Chronic (5) Thrombocytopenia Status: Chronic (6) Type II diabetes mellitus Status: Acute - Assessment and Plan (Free Text) Plan: start meloxicam 15qd for arm pain, regular insulin coverage for elevated glucos Dr. Arcenio huerta to resume care of pt in am
[2018-08-12] MEDS: Insulin Reg-LOW-Coverage SC SCH ×3 (12:30→22:32)
--- NOTE | 2018-08-12 22:53 | PN ---
DATE: 08/12/2018 REFERRING PHYSICIAN: Dr. Rg. SUBJECTIVE: She is out of bed to chair, sleepy, arousable. Night was unremarkable. Feels much better. No headache, no rhinitis. Mild cough. No chest pain. No nausea or vomiting. No diarrhea. No significant leg swelling. OBJECTIVE: GENERAL: No acute distress. VITAL SIGNS: Temperature is 98, heart rate 66, respiratory rate is 18, blood pressure 95/56, pulse of 98%, 2 liters nasal cannula. HEENT: Moist mucous membrane. Crowded airway. NECK: Supple. No JVD. LUNGS: Few scattered rhonchi. HEART: S1, S2 with loud murmur. ABDOMEN: Soft, nontender. No organomegaly. EXTREMITIES: Trace edema. NEUROLOGIC: Alert, follows simple commands. MEDICATIONS: She is on Actigall 300 mg twice a day, Aldactone 25 mg twice a day, lactulose 10 g twice a day, insulin coverage, Lasix 80 mg twice a day, lidocaine patch at affected area, metoprolol tartrate 12.5 mg twice a day, Mobic 50 mg daily, calcium plus vitamin D 1 tablet daily, Xopenex inhaled three times a day. LABORATORY DATA: Shows hemoglobin 11.5, hematocrit 33.7, WBC 8, platelet count is 44. Sodium 129, potassium 4.2, chloride 93, bicarbonate is 32, BUN 59, creatinine 1.1, glucose 109, calcium is 8.8, phosphorus 3.1, magnesium 2.2, total bili 3.6, AST 36, ALT 42, alk phos is 99, albumin is 2.5. Microbiology 08/05/2018, urine showed Proteus mirabilis. IMPRESSION AND PLAN: Chronic obstructive lung disease, suspected sleep apnea syndrome, cardiomyopathy with severely valvular heart disease, coronary artery disease, pulmonary hypertension, cryptogenic cirrhotic liver, portal thrombus, hypertension, history of lower extremity cellulitis, malnutrition, esophagitis, gastritis, duodenitis, activities of daily dysfunction, vertebral fracture, degenerative joint disease. Pulmonary point of view, doing okay. Continue bronchodilator, keep head at 45 degrees. Continue diuretics. Fall precaution. Physical therapy. Followup labs In the morning. Thank you and we will follow with you. Pablo Cantor MD [facility] # [id number]
--- NOTE | 2018-08-12 23:29 | PN ---
DATE: 08/12/2018 SUBJECTIVE: The patient seen earlier this morning, in no acute distress, nontoxic. PHYSICAL EXAMINATION: VITAL SIGNS: Temperature is 97, blood pressure is 105/50, respiratory rate is 16. HEENT: Examination is unremarkable. NECK: Supple. LUNGS: Decreased breath sounds. HEART: Normal, S1, S2. ABDOMEN: Soft, nontender. LABORATORY DATA: Examination reveals white count is 18, hemoglobin 11, and platelets of 44,000. BUN of 59, creatinine of 1.1. Urinalysis is noted. Review of orders . ASSESSMENT AND PLAN: A 78-year-old female with asymptomatic bacteriuria, hypokalemia, history of left leg cellulitis, chronic edema, hypertension, diabetes, chronic obstructive lung disease, coronary artery disease, history of depression, cryptogenic liver cirrhosis, malformation, currently off antibiotics, afebrile; however, the patient is at risk for developing nosocomial infection. Abram Benitez MD
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
[2018-08-13 07:15] LABS: HEMOGLOBIN 11.9 g/dL (12.0-16.0); MEAN CELL VOLUME 92.7 fl (80.0-105.0); MEAN CORPUSCULAR HEMOGLOBIN 31.2 pg (25.0-35.0); MEAN CORPUSCULAR HGB CONC 33.7 g/dl (31.0-37.0); MEAN PLATELET VOLUME 10.8 fl (7.0-11.0); RBC 3.81 10^6/uL (3.5-6.1); RED CELL DISTRIBUTION WIDTH 16.8 % (11.5-14.5); WHITE BLOOD COUNT 7.5 10^3/uL (4.5-11.0)
[2018-08-13] MEDS: Levalbuterol 0.63 MG/3 ML Inhal Soln UD IH SCH ×3 (07:21→20:10)
[2018-08-13] MEDS: Insulin Reg-LOW-Coverage SC SCH ×4 (08:04→22:30)
--- NOTE | 2018-08-13 08:17 | PN ---
DATE: 08/10/2018 This is a hospital visit on telemetry. For Dr. Peña. SUBJECTIVE: Patient is a 78-year-old female, seen lying awake in bed, having her supper without complaints, resting comfortably with platelets drawn earlier today with a value of 39,000, manual 45,000 with no active bleeding. The patient is known to suffer from cryptogenic cirrhosis for which thrombocytopenia is associated. At present, she is in no acute distress resting. OBJECTIVE: VITAL SIGNS: Temperature 98.2, pulse 76, respirations 14, blood pressure 110/50, pulse ox of 97%. HEENT: Unremarkable. NECK: Supple. HEART: Regular rate, occasional ectopic beat, 1/6 systolic ejection murmur. LUNGS: Faint crackles at the bases. ABDOMEN: Soft, nontender. EXTREMITIES: No edema. SKIN: Warm and dry. NEUROLOGIC: Awake, but lethargic. LABORATORY DATA: The patient's labs were done. White blood cell count of 10.0, hemoglobin of 12.3, hematocrit of 36.6, platelet count of 39,000 with manual count of 45,000. Her INR yesterday was 1.17 with a metabolic panel showing sodium of 131, chloride of 91, BUN of 53, and creatinine of 1.09. Fasting glucose of 254. AST of 44. Total bilirubin of 8.0. Patient's BCR-ABL gene testing showed that the fusion transcripts were not detected. ASSESSMENT: The assessment for this patient is that of cryptogenic cirrhosis with associated thrombocytopenia, chronic obstructive pulmonary disease exacerbation, aortic valve stenosis, congestive heart failure, hepatic encephalopathy, now corrected, subendocardial myocardial infarction, atherosclerotic cardiovascular disease, diabetes, pulmonary hypertension. PLAN: For this patient is to continue present medical regimen. We will monitor clinically and with labs with further recommendations as indicated. Andrzej Connor MD
--- NOTE | 2018-08-13 08:59 | PN ---
DATE: 08/10/2018 An addendum to a progress note performed by Mahogany Murdock APN. This visit is for Dr. Freitas, Dr. Chavez covering. I have personally examined this patient myself. I agree with Mahogany Murdock' assessment and recommendations. She has cryptogenic cirrhosis with thrombocytopenia. There is no overt GI bleeding at this time. Her hepatic encephalopathy has resolved. Her long-term prognosis is extremely poor. Continue monitoring for GI bleeding. Zenon Chavez MD [facility] # [phone]
[2018-08-13 09:19] LABS: ALB/GLOB RATIO 0.9 (1.1-1.8); ALBUMIN 2.8 g/dL (3.0-4.8); CALCIUM 9.3 mg/dL (8.4-10.5)
[2018-08-13] MEDS: Calcium-Vit D 250 mg-125 Units Tab UD PO SCH (10:19)
[2018-08-13] MEDS: Lidocaine 5% Patch TD SCH (10:23)
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
--- NOTE | 2018-08-13 14:24 | PN ---
DATE: 08/13/2018 PULMONARY PROGRESS NOTE REFERRING PHYSICIAN: Dr. Kristin Rg. SUBJECTIVE: The patient is sitting up in bed, in no acute distress. No overnight events reported. No headache, rhinitis, shortness of breath, chest pain, abdomina pain, nausea, vomiting, diarrhea, or leg pain reported. OBJECTIVE: GENERAL: No acute distress. VITAL SIGNS: Blood pressure 115/63, pulse 64, temperature 97.2, oxygen saturation 94%. HEENT: Moist mucous membranes. Crowded airway. NECK: Supple. No JVD. LUNGS: Few scattered rhonchi. CARDIOVASCULAR: S1 and S2 audible with murmur. ABDOMEN: Soft and nontender. No distention. No organomegaly. EXTREMITIES: Trace bilateral lower extremity edema. NEUROLOGIC: Awake, alert, and verbal. Follows commands. MEDICATIONS: Reviewed. Os-Cristo one tab daily, Lasix 80 mg twice a day, Humulin R sliding scale a.c. and h.s., lactulose 10 g twice a day, Xopenex 0.63 mg inhalation three times a day, Lidocaine patch topically daily, Mobic 15 mg p.o. daily, Lopressor 12.5 mg twice a day, Levy nasal spray three times a day p.r.n., Aldactone 25 mg twice a day, Ursodiol 300 mg twice a day. LABORATORY DATA: WBC 7.5, RBC 3.81, hemoglobin 11.9, hematocrit 35.3, and platelets 60. Sodium 128, potassium 4.6, chloride 91, carbon dioxide 30, anion gap 12, BUN 71, creatinine 1.1. GFR 48, POC glucose 117, random glucose 104, calcium 9.3, total bilirubin 4, AST 41, ALT 39, alkaline phosphatase 99, total protein 5.9, albumin 2.8, globulin 3.1, and albumin-globulin ratio 0.9. IMPRESSION AND PLAN: Chronic obstructive lung disease, suspected sleep apnea syndrome, cardiomyopathy with severe valvular heart disease, coronary artery disease, pulmonary hypertension, cryptogenic cirrhotic liver, portal thrombus, hypertension, history of lower extremity cellulitis, lymphedema, bilateral lower extremity edema, malnutrition, esophagitis, gastritis, and duodenitis, vertebral fracture, degenerative joint disease, activities of daily living dysfunction. Pulmonary point of view; continue bronchodilators, continue diuretics, fall precautions. Continue follow up with lab, Continuous positive airway pressure precaution. Head of bed elevated 45 degrees. The patient continues to refuse continuous positive airway pressure use at bedtime. Physical therapy. This patient was seen and examined with Dr. Cantor. Discussed assessment and plan as described above. Thank you for this consult. We will follow with you. Alec Marie APN Pablo Cantor MD
--- NOTE | 2018-08-13 14:42 | CP.PCM.PN ---
Subjective - Date & Time of Evaluation Date of Evaluation: 08/13/18 Time of Evaluation: 14:41 - Subjective Subjective: RENAL Note s: seen and examined pt feels better. mental status better after lactulose and ammonia level trended down she denies SOB pe: vs as below. frail chronically ill appearing gen: nad sclera: icteric op: clear neck: supple cv: +S1+s2 no rub lungs: cta ant abd: soft nt nd no organomegaly ext: no edema neuro: following command awake today psych: flat skin redness b/l lower extremities imp: hypokalemia/ chf / alkalosis/ anemia/hyponatremia/cirrhosis with portal HTN, hepatic enceph/severe with RV dysfunction/thrombocytopenia plan: k remains stable. supplement as needed CHF management as per cardio pt on lasix and aldactone pt not a candidate for samsca due to cirrhosis GI and cardiology following started lactulose avoids nsaids prognosis guarded repeat urine Na and Osmol Objective - Vital Signs/Intake and Output Vital Signs (last 24 hours): Temp Pulse Resp BP Pulse Ox 97.2 F L 88 18 118/62 94 L 08/13/18 06:00 08/13/18 10:19 08/13/18 06:00 08/13/18 10:18 08/13/18 06:00 Intake and Output: 08/13/18 08/13/18 06:59 18:59 Intake Total 360 Output Total 300 Balance 60 - Medications Medications: Current Medications Calcium/Vitamin D (Oscal-D 250 Mg-125 Units Tab) 1 tab PO DAILY [facility] Last Admin: 08/13/18 10:19 Dose: 1 tab Furosemide (Lasix) 80 mg PO BID [facility] Last Admin: 08/13/18 10:18 Dose: 80 mg Insulin Human Regular (Humulin R Low) 0 units SC [facility]; Protocol Last Admin: 08/13/18 13:00 Dose: 1 u Lactulose (Enulose) 10 gm PO BID [facility] Last Admin: 08/13/18 10:18 Dose: 10 gm Levalbuterol HCl (Xopenex) 0.63 mg IH TIDRESP [facility] Last Admin: 08/13/18 13:56 Dose: 0.63 mg Lidocaine (Lidoderm) 1 ea TD DAILY [facility] Last Admin: 08/13/18 10:23 Dose: 1 ea Meloxicam (Mobic) 15 mg PO DAILY [facility] Last Admin: 08/13/18 10:18 Dose: 15 mg Metoprolol Tartrate (Lopressor) 12.5 mg PO BID [facility] Last Admin: 08/13/18 10:19 Dose: 12.5 mg Sodium Chloride ([place] Nasal [place]) 0 ml NS TID PRN PRN Reason: Nasal congestion Last Admin: 08/12/18 09:14 Dose: 2 spr Spironolactone (Aldactone) 25 mg PO BID [facility] Last Admin: 08/13/18 10:19 Dose: 25 mg Ursodiol (Actigall) 300 mg PO BID [facility] Last Admin: 08/13/18 10:18 Dose: 300 mg - Labs Labs: 08/13/18 06:30 08/13/18 06:30 PT 13.5 SECONDS (9.4-12.5) H 08/09/18 07:35 INR 1.17 08/09/18 07:35 APTT 36.0 Seconds (25.1-36.5) 08/04/18 21:45
--- NOTE | 2018-08-13 18:07 | CP.PCM.PN ---
<Timothy Yang - Last Filed: 08/13/18 18:52> Subjective - Date & Time of Evaluation Date of Evaluation: 08/13/18 Time of Evaluation: 08:30 - Subjective Subjective: PGY-4 GI Fellow Prog Note Pt lying in bed when seen this AM. States she has some chronic abd pain but is otherwise doing well. Tolerating diet. 5 point ROS negative other than stated above Objective - Vital Signs/Intake and Output Vital Signs (last 24 hours): Temp Pulse Resp BP Pulse Ox 97.1 F L 74 19 94/52 L 94 L 08/13/18 17:50 08/13/18 17:50 08/13/18 17:50 08/13/18 17:50 08/13/18 06:00 Intake and Output: 08/13/18 08/13/18 06:59 18:59 Intake Total 360 Output Total 300 Balance 60 - Medications Medications: Current Medications Calcium/Vitamin D (Oscal-D 250 Mg-125 Units Tab) 1 tab PO DAILY [facility] Last Admin: 08/13/18 10:19 Dose: 1 tab Furosemide (Lasix) 80 mg PO BID [facility] Last Admin: 08/13/18 10:18 Dose: 80 mg Insulin Human Regular (Humulin R Low) 0 units SC [facility]; Protocol Last Admin: 08/13/18 13:00 Dose: 1 u Lactulose (Enulose) 10 gm PO BID [facility] Last Admin: 08/13/18 10:18 Dose: 10 gm Levalbuterol HCl (Xopenex) 0.63 mg IH TIDRESP [facility] Last Admin: 08/13/18 13:56 Dose: 0.63 mg Lidocaine (Lidoderm) 1 ea TD DAILY [facility] Last Admin: 08/13/18 10:23 Dose: 1 ea Meloxicam (Mobic) 15 mg PO DAILY [facility] Last Admin: 08/13/18 10:18 Dose: 15 mg Metoprolol Tartrate (Lopressor) 12.5 mg PO BID [facility] Last Admin: 08/13/18 10:19 Dose: 12.5 mg Sodium Chloride ([place] Nasal [place]) 0 ml NS TID PRN PRN Reason: Nasal congestion Last Admin: 08/12/18 09:14 Dose: 2 spr Spironolactone (Aldactone) 25 mg PO BID [facility] Last Admin: 08/13/18 10:19 Dose: 25 mg Ursodiol (Actigall) 300 mg PO BID [facility] Last Admin: 08/13/18 10:18 Dose: 300 mg - Labs Labs: 08/13/18 06:30 08/13/18 06:30 PT 13.5 SECONDS (9.4-12.5) H 08/09/18 07:35 INR 1.17 08/09/18 07:35 APTT 36.0 Seconds (25.1-36.5) 08/04/18 21:45 - Constitutional Appears: No Acute Distress, Cachectic, Chronically Ill - Head Exam Head Exam: NORMAL INSPECTION Additional comments: temporal wasting - Eye Exam Eye Exam: EOMI, Scleral icterus - ENT Exam ENT Exam: Mucous Membranes Moist. absent: Mucous Membranes Dry - Respiratory Exam Respiratory Exam: NORMAL BREATHING PATTERN. absent: Accessory Muscle Use - GI/Abdominal Exam GI & Abdominal Exam: Soft, Normal Bowel Sounds. absent: Bruit, Distended, Firm, Guarding, Rigid, Tenderness, Mass, Organomegaly, Pulsatile Mass, Rebound Assessment and Plan - Assessment and Plan (Free Text) Assessment: 78 yo WF with multiple comorbities including cirrhosis, CAD, Pulm HTN, COPD, Aortic Stenosis sent in [facility] [place] [facility] for weakness and hypokalemia. 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 Suspect Cardiac or PAULA. Increased bilirubin is concerning from 2s to 8.2 on admission, INR 1.42 on admission with MELD-Na 20. - PVT: Seen on admission CT, Doppler did not reveal any thrombus - EV: Last EGD 4 yrs ago, unknown results - HCC: No masses seen on admission CT - Ascites: On Spironolactone and Furoseide though not in typical ratio - Hepatic Encephalopathy: NH3 elevated on 08/08/18; unclear trigger, no obvious signs of bleeding, infection, WIN[place], etc. # CHF, CAD, Pulm HTN, Right sided CHF, Severe # COPD # H/o Colonic AVMs Plan: - Abd Doppler reviewed: No obvious thrombus, patent vessels. Splenomegaly with varices. No ascites - MRCP with Abd MRI reviewed: Severe dilation of proximal CBD 16mm and normal distal CBD 3mm possibly due to CBD stricture. Pt is extremely high risk for complications with ERCP/EUS with extensive co-morbidities. - Low direct bilirubin is an unexpected finding in setting of possible biliary obstruction. Indirect could be from hemolysis, poor cardiac output to liver among others. - Cont Ursodiol - Cardiology consult, appreciate recs - Monitor CMP, CBC, INR daily - Low Na diet - Cont diuretics - Stopped PPI due to progressive thrombocytopenia - Agree with lactulose, titrate to at least 3 BMs/day --- Pt more altered later in the day, not stool adequately ----- Lactulose enema now, then increase PO to TID Pt seen and examined with Dr. Freitas; please see attestation for further recs/changes <Stewart Freitas V - Last Filed: 08/13/18 22:53> Objective - Vital Signs/Intake and Output Vital Signs (last 24 hours): Temp Pulse Resp BP Pulse Ox 97.1 F L 74 19 94/52 L 94 L 08/13/18 17:50 08/13/18 17:50 08/13/18 17:50 08/13/18 17:50 08/13/18 06:00 - Medications Medications: Current Medications Calcium/Vitamin D (Oscal-D 250 Mg-125 Units Tab) 1 tab PO DAILY [facility] Last Admin: 08/13/18 10:19 Dose: 1 tab Furosemide (Lasix) 80 mg PO BID [facility] Last Admin: 08/13/18 18:52 Dose: Not Given Insulin Human Regular (Humulin R Low) 0 units SC [facility]; Protocol Last Admin: 08/13/18 18:49 Dose: 2 u Lactulose (Enulose) 10 gm PO TID [facility] Levalbuterol HCl (Xopenex) 0.63 mg IH TIDRESP [facility] Last Admin: 08/13/18 20:10 Dose: 0.63 mg Lidocaine (Lidoderm) 1 ea TD DAILY [facility] Last Admin: 08/13/18 10:23 Dose: 1 ea Meloxicam (Mobic) 15 mg PO DAILY [facility] Last Admin: 08/13/18 10:18 Dose: 15 mg Metoprolol Tartrate (Lopressor) 12.5 mg PO BID [facility] Last Admin: 08/13/18 18:52 Dose: Not Given Sodium Chloride ([place] Nasal [place]) 0 ml NS TID PRN PRN Reason: Nasal congestion Last Admin: 08/12/18 09:14 Dose: 2 spr Spironolactone (Aldactone) 25 mg PO BID [facility] Last Admin: 08/13/18 18:52 Dose: Not Given Ursodiol (Actigall) 300 mg PO BID [facility] Last Admin: 08/13/18 18:48 Dose: 300 mg - Labs Labs: 08/13/18 06:30 08/13/18 06:30 PT 13.5 SECONDS (9.4-12.5) H 08/09/18 07:35 INR 1.17 08/09/18 07:35 APTT 36.0 Seconds (25.1-36.5) 08/04/18 21:45 Attending/Attestation - Attestation I have personally seen and examined this patient.: Yes I have fully participated in the care of the patient.: Yes I have reviewed all pertinent clinical information, including history, physical exam and plan: Yes Notes (Text): This is an addendum to GI progress report dictated by the GI Fellow.The patient was seen and examined earlier. Medical records, lab studies, imagings were reviewed. Last 24 hours events reviewed. Agreed with the above treatment plan as outlined in GI Fellow 's notes with the addition of the following 08/13/18 22:53
[2018-08-13] MEDS ORDERED: Lactulose 10 gm/15 ml (Rectal Use) PR ONE (18:50)
--- NOTE | 2018-08-13 19:13 | PN ---
DATE: 08/13/2018 REASON FOR CONSULTATION: Followup, cardiac evaluation with hypokalemia, generalized weakness, positive troponin, failure to thrive, cachectic, history of coronary artery disease, status post PTCA in 2008, history of severe aortic stenosis and refused TAVR. This note is in addition to dictated by nurse practitioner, Deisi Nair. PHYSICAL EXAMINATION: GENERAL: The patient is very weak, lethargic, not in apparent distress. VITAL SIGNS: Stable. LABORATORY DATA: Pertinent lab: Hemoglobin 11.9, hematocrit 35.3, platelet count 60. Chemistry showed sodium 120, potassium 4.6. IMPRESSION: A 78-year-old female with the past medical history significant for critical aortic stenosis, refused transcatheter aortic valve replacement in the past, history of coronary artery disease and is status post percutaneous transluminal coronary angioplasty of right coronary artery in 2008, history of cryptogenic cirrhosis, chronic obstructive pulmonary disease, severe aortic stenosis and refused transcatheter aortic valve replacement in the past, severe thrombocytopenia, frequent nosebleed without any platelet therapy. RECOMMENDATIONS: Continue supportive care. Overall, the patient is critical and long-term prognosis is guarded. Continue low dose beta kirby as blood pressure and heart rate is tolerated. Continue Aldactone, continue Lasix. Consider DNR and DNI. Thank you Dr. Rg for providing us the opportunity in taking care of the patient, Maria D Sullivan. Pablo Guillermo MD
[2018-08-14] MEDS: Levalbuterol 0.63 MG/3 ML Inhal Soln UD IH SCH ×3 (07:23→20:10)
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
[2018-08-14 07:40] LABS: BASO # 0.01 K/mm3 (0.0-2.0); BASO % 0.2 % (0.0-3.0); EOS # 0.6 (0.0-0.7); GRAN # 3.68 (1.4-6.5); GRAN % 61.2 % (50.0-68.0); HEMOGLOBIN 11.1 g/dL (12.0-16.0); LYMPH % 17.1 % (22.0-35.0); MEAN CELL VOLUME 92.3 fl (80.0-105.0); MEAN CORPUSCULAR HEMOGLOBIN 31.8 pg (25.0-35.0); MEAN CORPUSCULAR HGB CONC 34.5 g/dl (31.0-37.0); MEAN PLATELET VOLUME 9.9 fl (7.0-11.0); MONO # 0.7 (0.1-0.6); MONO % 11.5 % (1.0-6.0); RBC 3.49 10^6/uL (3.5-6.1); RED CELL DISTRIBUTION WIDTH 16.9 % (11.5-14.5)
[2018-08-14 07:55] LABS: ALB/GLOB RATIO 0.8 (1.1-1.8); ALBUMIN 2.5 g/dL (3.0-4.8); ALT/SGPT 38 U/L (7-56); AST/SGOT 36 U/L (14-36); BLOOD UREA NITROGEN 74 mg/dL (7-21); CALCIUM 9.5 mg/dL (8.4-10.5); GFR NON-AFRICAN AMERICAN 54
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
--- NOTE | 2018-08-14 08:36 | CP.PCM.PN ---
<ShahidanikiParthatai - Last Filed: 08/14/18 11:22> Subjective - Date & Time of Evaluation Date of Evaluation: 08/14/18 Time of Evaluation: 08:25 - Subjective Subjective: PGY-4 GI Fellow Prog Note Pt lying in bed when seen this AM. States she is doing well this AM. She thinks it's been awhile since moved bowels. Able to stated she is in [facility], but thinks year is sometime in 1920s. 5 point ROS negative other than stated above Objective - Vital Signs/Intake and Output Vital Signs (last 24 hours): Temp Pulse Resp BP Pulse Ox 97.9 F 79 20 96/53 L 100 08/14/18 06:37 08/14/18 06:37 08/14/18 06:37 08/14/18 06:37 08/14/18 06:37 Intake and Output: 08/14/18 08/14/18 06:59 18:59 Intake Total 120 Output Total 250 Balance -130 - Medications Medications: Current Medications Calcium/Vitamin D (Oscal-D 250 Mg-125 Units Tab) 1 tab PO DAILY [facility] Last Admin: 08/13/18 10:19 Dose: 1 tab Furosemide (Lasix) 80 mg PO BID [facility] Last Admin: 08/13/18 18:52 Dose: Not Given Insulin Human Regular (Humulin R Low) 0 units SC [facility]; Protocol Last Admin: 08/13/18 22:30 Dose: Not Given Lactulose (Enulose) 10 gm PO TID [facility] Levalbuterol HCl (Xopenex) 0.63 mg IH TIDRESP [facility] Last Admin: 08/14/18 07:23 Dose: 0.63 mg Lidocaine (Lidoderm) 1 ea TD DAILY [facility] Last Admin: 08/13/18 10:23 Dose: 1 ea Meloxicam (Mobic) 15 mg PO DAILY [facility] Last Admin: 08/13/18 10:18 Dose: 15 mg Metoprolol Tartrate (Lopressor) 12.5 mg PO BID [facility] Last Admin: 08/13/18 18:52 Dose: Not Given Sodium Chloride ([place] Nasal [place]) 0 ml NS TID PRN PRN Reason: Nasal congestion Last Admin: 08/12/18 09:14 Dose: 2 spr Spironolactone (Aldactone) 25 mg PO BID [facility] Last Admin: 08/13/18 18:52 Dose: Not Given Ursodiol (Actigall) 300 mg PO BID [facility] Last Admin: 08/13/18 18:48 Dose: 300 mg - Labs Labs: 08/14/18 07:15 08/14/18 07:15 PT 13.5 SECONDS (9.4-12.5) H 08/09/18 07:35 INR 1.17 08/09/18 07:35 APTT 36.0 Seconds (25.1-36.5) 08/04/18 21:45 - Constitutional Appears: No Acute Distress, Cachectic, Chronically Ill - Head Exam Additional comments: temporal wasting - Eye Exam Eye Exam: EOMI, Scleral icterus - ENT Exam ENT Exam: Mucous Membranes Dry. absent: Mucous Membranes Moist - Respiratory Exam Respiratory Exam: NORMAL BREATHING PATTERN. absent: Accessory Muscle Use, Respiratory Distress - GI/Abdominal Exam GI & Abdominal Exam: Soft, Normal Bowel Sounds. absent: Bruit, Distended, Firm, Guarding, Rigid, Tenderness, Mass, Organomegaly, Pulsatile Mass - Skin Skin Exam: Dry Additional comments: scattered ecchymosis Assessment and Plan - Assessment and Plan (Free Text) Assessment: 78 yo WF with multiple comorbities including cirrhosis, CAD, Pulm HTN, COPD, Aortic Stenosis sent in from shelter for weakness and hypokalemia. 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 Suspect Cardiac or PAULA. Increased bilirubin is concerning from 2s to 8.2 on admission, INR 1.42 on admission with MELD-Na 20. - PVT: Seen on admission CT, Doppler did not reveal any thrombus - EV: Last EGD 4 yrs ago, unknown results - HCC: No masses seen on admission CT - Ascites: On Spironolactone and Furoseide though not in typical ratio - Hepatic Encephalopathy: NH3 elevated on 08/08/18; unclear trigger, no obvious signs of bleeding, infection, [place], etc. # CHF, CAD, Pulm HTN, Right sided CHF, Severe # COPD # H/o Colonic AVMs Plan: - Abd Doppler reviewed: No obvious thrombus, patent vessels. Splenomegaly with varices. No ascites - MRCP with Abd MRI reviewed: Severe dilation of proximal CBD 16mm and normal distal CBD 3mm possibly due to CBD stricture. Pt is extremely high risk for complications with ERCP/EUS with extensive co-morbidities. - Low direct bilirubin is an unexpected finding in setting of possible biliary obstruction. Indirect could be from hemolysis, poor cardiac output to liver among others. - Cont Ursodiol - Cardiology consulted, appreciate recs - Monitor CMP, CBC, INR daily - Low Na diet - Cont diuretics - Stopped PPI due to progressive thrombocytopenia - Cont lactulose, titrate to at least 3 BMs/day Pt seen and examined with Dr. Freitas; please see attestation for further recs/changes <Stewart Freitas V - Last Filed: 08/14/18 21:02> Objective - Vital Signs/Intake and Output Vital Signs (last 24 hours): Temp Pulse Resp BP Pulse Ox 98 F 97 H 20 102/46 L 100 08/14/18 18:00 08/14/18 18:00 08/14/18 18:00 08/14/18 18:00 08/14/18 06:37 Intake and Output: 08/14/18 08/15/18 18:59 06:59 Intake Total 960 Balance 960 - Medications Medications: Current Medications Acetaminophen (Tylenol 325mg Tab) 650 mg PO Q6H PRN PRN Reason: Pain, moderate (4-7) Last Admin: 08/14/18 15:13 Dose: 650 mg Calcium/Vitamin D (Oscal-D 250 Mg-125 Units Tab) 1 tab PO DAILY [facility] Last Admin: 08/14/18 09:28 Dose: 1 tab Furosemide (Lasix) 60 mg PO BID [facility] Last Admin: 08/14/18 17:25 Dose: 60 mg Insulin Human Regular (Humulin R Low) 0 units SC [facility]; Protocol Last Admin: 08/14/18 16:26 Dose: 2 u Lactulose (Enulose) 10 gm PO TID [facility] Last Admin: 08/14/18 17:03 Dose: Not Given Levalbuterol HCl (Xopenex) 0.63 mg IH TIDRESP [facility] Last Admin: 08/14/18 20:10 Dose: 0.63 mg Lidocaine (Lidoderm) 1 ea TD DAILY [facility] Last Admin: 08/14/18 09:30 Dose: 1 ea Meloxicam (Mobic) 15 mg PO DAILY [facility] Last Admin: 08/14/18 09:29 Dose: 15 mg Metoprolol Tartrate (Lopressor) 12.5 mg PO BID [facility] Last Admin: 08/14/18 17:23 Dose: Not Given Sodium Chloride ([place] Nasal [place]) 0 ml NS TID PRN PRN Reason: Nasal congestion Last Admin: 08/12/18 09:14 Dose: 2 spr Spironolactone (Aldactone) 25 mg PO BID [facility] Last Admin: 08/14/18 17:23 Dose: Not Given Ursodiol (Actigall) 300 mg PO BID [facility] Last Admin: 08/14/18 17:26 Dose: 300 mg - Labs Labs: 08/14/18 07:15 08/14/18 07:15 PT 13.5 SECONDS (9.4-12.5) H 08/09/18 07:35 INR 1.17 08/09/18 07:35 APTT 36.0 Seconds (25.1-36.5) 08/04/18 21:45 Attending/Attestation - Attestation I have personally seen and examined this patient.: Yes I have fully participated in the care of the patient.: Yes I have reviewed all pertinent clinical information, including history, physical exam and plan: Yes Notes (Text): This is an addendum to GI progress report dictated by the GI Fellow. The patient was seen and examined earlier. Medical records, lab studies, imagings were reviewed. Last 24 hours events reviewed. Agreed with the above treatment plan as outlined in GI Fellow 's notes with the addition of the following this patient has critical aortic stenosis, pulmonary hypertension, significant epistaxis and bleeding diathesis, thrombocytopenia, hepatic encephalopathy on lactulose he is extremely high risk for any endoscopy procedure to further evaluate the biliary stricture . Discussed with earlier and agreed with the extremely high risk status of this patient for any procedure Recommend supportive care, continue Actigall and titrate the dose of lactulose Will discuss with 08/14/18 20:57
[2018-08-14] MEDS: Insulin Reg-LOW-Coverage SC SCH ×4 (08:38→22:00)
[2018-08-14] MEDS: Calcium-Vit D 250 mg-125 Units Tab UD PO SCH (09:28)
[2018-08-14] MEDS: Lidocaine 5% Patch TD SCH (09:30)
[2018-08-14] MEDS ORDERED: Sodium Chloride 0.9% 1,000 ML IV SCH (09:30)
--- NOTE | 2018-08-14 11:18 | CP.PCM.PN ---
Subjective - Date & Time of Evaluation Date of Evaluation: 08/14/18 Time of Evaluation: 11:16 - Subjective Subjective: RENAL Note s: seen and examined mental status had improved earlier after lactulose and ammonia level trended down she denies SOB. pe: vs as below. frail chronically ill appearing, debilitated gen: nad sclera: icteric op: clear neck: supple cv: +S1+s2 no rub lungs: cta ant abd: soft nt nd no organomegaly ext: no edema neuro: following command arousable psych: flat skin redness b/l lower extremities imp: hypokalemia/ chf / alkalosis/ anemia/hyponatremia/cirrhosis with portal HTN, hepatic enceph/severe with RV dysfunction/thrombocytopenia plan: k remains stable. supplement as needed CHF management as per cardio pt on lasix and aldactone pt not a candidate for samsca due to cirrhosis GI and cardiology following started lactulose avoids nsaids such as meloxicam prognosis guarded repeat urine Na and Osmol Objective - Vital Signs/Intake and Output Vital Signs (last 24 hours): Temp Pulse Resp BP Pulse Ox 97.9 F 79 20 96/53 L 100 08/14/18 06:37 08/14/18 06:37 08/14/18 06:37 08/14/18 09:30 08/14/18 06:37 Intake and Output: 08/14/18 08/14/18 06:59 18:59 Intake Total 120 Output Total 250 Balance -130 - Medications Medications: Current Medications Calcium/Vitamin D (Oscal-D 250 Mg-125 Units Tab) 1 tab PO DAILY [facility] Last Admin: 08/14/18 09:28 Dose: 1 tab Furosemide (Lasix) 80 mg PO BID [facility] Last Admin: 08/14/18 09:29 Dose: 80 mg Sodium Chloride (Sodium Chloride 0.9%) 1,000 mls @ 100 mls/hr IV .Q10H [facility] Last Admin: 08/14/18 09:35 Dose: 100 mls/hr Insulin Human Regular (Humulin R Low) 0 units SC [facility]; Protocol Last Admin: 08/14/18 08:38 Dose: Not Given Lactulose (Enulose) 10 gm PO TID [facility] Last Admin: 08/14/18 09:29 Dose: 10 gm Levalbuterol HCl (Xopenex) 0.63 mg IH TIDRESP [facility] Last Admin: 08/14/18 07:23 Dose: 0.63 mg Lidocaine (Lidoderm) 1 ea TD DAILY [facility] Last Admin: 08/14/18 09:30 Dose: 1 ea Meloxicam (Mobic) 15 mg PO DAILY [facility] Last Admin: 08/14/18 09:29 Dose: 15 mg Metoprolol Tartrate (Lopressor) 12.5 mg PO BID [facility] Last Admin: 08/14/18 09:30 Dose: Not Given Sodium Chloride ([place] Nasal [place]) 0 ml NS TID PRN PRN Reason: Nasal congestion Last Admin: 08/12/18 09:14 Dose: 2 spr Spironolactone (Aldactone) 25 mg PO BID [facility] Last Admin: 08/14/18 09:29 Dose: Not Given Ursodiol (Actigall) 300 mg PO BID [facility] Last Admin: 08/14/18 09:29 Dose: 300 mg - Labs Labs: 08/14/18 07:15 08/14/18 07:15 PT 13.5 SECONDS (9.4-12.5) H 08/09/18 07:35 INR 1.17 08/09/18 07:35 APTT 36.0 Seconds (25.1-36.5) 08/04/18 21:45
--- NOTE | 2018-08-14 12:46 | PN ---
DATE: 08/14/2018 PULMONARY PROGRESS NOTE REFERRING PHYSICIAN: Dr. Kristin Rg. SUBJECTIVE: The patient is sitting up in bed. No acute distress. No overnight events reported. No headache, rhinitis, cough, shortness of breath, chest pain, abdominal pain, nausea, vomiting, diarrhea, or leg pain reported. OBJECTIVE: GENERAL: No acute distress. VITAL SIGNS: Blood pressure 96/53, pulse 79, temperature 97.9 and oxygen 100% saturation. HEENT: Moist mucous membranes. Crowded airway. NECK: Supple. No JVD. LUNGS: Few scattered rhonchi bilaterally. CARDIOVASCULAR: S1 and S2 audible, murmur. ABDOMEN: Soft and nontender. No distention. No organomegaly. EXTREMITIES: Chronic lower extremity edema. NEUROLOGIC: Awake, alert, and verbal. Follows commands. MEDICATIONS: Reviewed. Os-Cristo one tab daily, Lasix 80 mg twice a day, Humulin R sliding scale a.c. and at bedtime, lactulose 10 g three times a day, Xopenex 0.63 mg inhalation three times a day, Lidoderm patch topically to affected area, Mobic 15 mg daily, metoprolol tartrate 12.5 mg twice a day, [place] nasal spray three times a day p.r.n., sodium chloride 0.9% 1000 mL at 100 mL per hour, spironolactone 25 mg twice a day, and Ursodiol 300 mg p.o. twice a day. LABORATORY DATA: Reviewed. WBC 6.0, RBC 3.49, hemoglobin 11.1, hematocrit 32.2, and platelets 61. Sodium 131, potassium 4.4, chloride 94, carbon dioxide 31, anion gap 10, BUN 74, creatinine 1, GFR 54, random glucose 110, calcium 9.5, total bilirubin 3.5, AST 36, ALT 38, alkaline phosphatase 95, total protein 5.6, albumin 2.5, globulin 3.1, and albumin-globulin ratio 0.8. IMPRESSION AND PLAN: Chronic obstructive lung disease, suspected sleep apnea syndrome, cardiomyopathy with severe valvular heart disease, coronary artery disease, pulmonary hypertension, cryptogenic cirrhotic liver, portal thrombus, hypertension, history of lower extremity cellulitis, lymphedema, malnutrition, esophagitis, gastritis, duodenitis, vertebral fracture, degenerative joint disease, activities of daily living dysfunction, and severe aortic stenosis. We will discontinue IV fluids, decrease Lasix to 60 mg twice a day; continue bronchodilators and fall precaution. We will follow up with labs in the morning. Sleep apnea precaution; head of bed elevated at 45 degrees. The patient continues to refuse continuous positive airway pressure use. The patient will benefit from physical therapy. Sequential compression devices to bilateral lower extremity for deep venous thrombosis prophylaxis. Gastroenterology notes appreciated. Proton pump inhibitor was stopped by Gastroenterology due to progressive thrombocytopenia. This patient was seen and examined with Dr. Cantor. Discussed assessment and plan as described above. Thank you for this consult. We will follow with you. Alec Marie APN Pablo Cantor MD
--- NOTE | 2018-08-14 19:38 | PN ---
DATE: 08/14/2018 SUBJECTIVE: The patient is seen in bed, in no acute distress, and nontoxic. OBJECTIVE: VITAL SIGNS: Temperature is 97, blood pressure is 102/40, respiratory rate of 18, and heart rate of 119. HEENT: Unremarkable. NECK: Supple. LUNGS: Have decreased breath sounds. HEART: Normal S1 and S2. ABDOMEN: Soft. LABORATORY DATA: Reveals a white count of 6000 and hemoglobin of 11. Chemistries reveal a BUN of 74 and creatinine of 1. Urinalysis is noted. Microbiology is noted and Proteus mirabilis. REVIEW OF ORDERS: Medications reveal the patient is off of antibiotics. ASSESSMENT AND PLAN: A 78-year-old female with asymptomatic bacteriuria, history of left leg cellulitis on top of chronic lymphedema, history of bilateral lower extremity cellulitis, hypertension, diabetes, and chronic obstructive pulmonary disease. Currently off of antibiotics, afebrile. We will follow with you. Abram Benitez MD
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
[2018-08-15 07:14] LABS: BASO # 0.02 K/mm3 (0.0-2.0); BASO % 0.3 % (0.0-3.0); EOS # 0.4 (0.0-0.7); EOS % 7.1 % (1.5-5.0); GRAN % 64.3 % (50.0-68.0); HEMOGLOBIN 12.2 g/dL (12.0-16.0); LYMPH # 1.1 (1.2-3.4); LYMPH % 17.4 % (22.0-35.0); MEAN CELL VOLUME 93.7 fl (80.0-105.0); MEAN CORPUSCULAR HEMOGLOBIN 31.9 pg (25.0-35.0); MEAN CORPUSCULAR HGB CONC 34.1 g/dl (31.0-37.0); MEAN PLATELET VOLUME 10.4 fl (7.0-11.0); MONO # 0.7 (0.1-0.6); MONO % 10.9 % (1.0-6.0); RBC 3.82 10^6/uL (3.5-6.1); WHITE BLOOD COUNT 6.2 10^3/uL (4.5-11.0)
[2018-08-15 07:31] LABS: ALB/GLOB RATIO 0.9 (1.1-1.8); ALBUMIN 2.9 g/dL (3.0-4.8); ALT/SGPT 46 U/L (7-56); AST/SGOT 52 U/L (14-36); BLOOD UREA NITROGEN 73 mg/dL (7-21); CALCIUM 9.8 mg/dL (8.4-10.5); GFR NON-AFRICAN AMERICAN 54
--- NOTE | 2018-08-15 08:07 | PN ---
DATE: 08/14/2018 LOCATION: The patient is in room 268, bed 1. Detailed note has been already written by Deisi Nair. This is an additional note. SUBJECTIVE: The patient was brought from [facility] due to generalized weakness, found to have hypokalemia. The patient is a known case of coronary artery disease, history of PTCA of RCA in 2008. The patient has diastolic dysfunction; congestive heart failure; severe aortic stenosis, in the past, the patient refused TAVR; history of hypertension; dementia; COPD; diabetes mellitus; cryptogenic cirrhosis of the liver; urinary tract infection; anemia; cellulitis of the legs; fall. The patient now clinically is doing better. LABORATORY DATA: Her WBC is 6.0, hemoglobin 11.1, hematocrit 32.2, platelets 61. Sodium 131, potassium has improved to 4.4, BUN 74, creatinine 1.0, random sugar 169. Total protein 5.6, albumin 2.5. PLAN: The patient is on nutritional support, and the patient's blood pressure and heart rate are under control. The patient is on Actigall 300 mg b.i.d, spironolactone 25 b.i.d., lactulose 10 g p.o. t.i.d., furosemide 60 b.i.d., metoprolol 12.5 b.i.d., Mobic 50 mg daily, Xopenex hand nebulizer therapy. The patient has low platelet count. We will continue present therapy. Pablo Shah MD
--- NOTE | 2018-08-15 08:11 | PN ---
DATE: 08/14/2018 SUBJECTIVE: The patient was seen and examined at bedside on 08/14/2018. Complaining about her abdominal pain. According to staff, the patient do not have bowel movement for a couple of days, getting lactulose 10 mg. I gave a boost dose of 30 and expecting that the patient will do bowel movement. Otherwise, no fever, no chills. No hematuria or hematochezia. No headache. No dizziness. The patient is a poor historian. PHYSICAL EXAMINATION: VITAL SIGNS: Temperature 97, blood pressure 102/40, respiratory rate 18, heart rate 119. HEENT: Head normocephalic, atraumatic. Eyes: PERRLA. Extraocular muscles intact. Conjunctivae clear. Nose patent. Mucous membranes moist. NECK: Supple. No carotid bruit. No JVD or thyromegaly. CHEST: Bilaterally symmetrical. HEART: S1 and S2 positive. LUNGS: Clear to auscultation. ABDOMEN: Soft. Positive bowel sounds. No organomegaly. EXTREMITIES: No edema. No cyanosis. NEUROLOGIC: The patient is awake and alert. Follows simple commands. MEDICATIONS: Actigall, Aldactone, lactulose, Lasix, Lidoderm patch, metoprolol, Mobic, NS nasal spray, calcium with vitamin D, Tylenol, Lexapro. LABORATORY DATA: White blood cells 6, hemoglobin 11.1, hematocrit 32.2, platelets 61. Sodium 131, potassium 4.4, BUN 74, creatinine 1. Glucose 214. Total bilirubin 3.5. ASSESSMENT AND PLAN: The patient is a 78-year-old lady with anemia, thrombocytosis improved, low platelets, history of hyponatremia, hypochloremia, increased BUN and most likely dehydrated and getting normal saline, diabetes mellitus not very well controlled, hemochromatosis mutation is noted, came with abdominal pain. The patient has asymptomatic bacteruria, history of left leg cellulitis on the top of chronic lymphedema, history of bilateral lower extremity cellulitis, hypertension, chronic obstructive pulmonary disease, continue with antibiotics, afebrile, hyponatremia, and getting normal saline. Seen by jigger artisan, Dr. Travis Lewis and her event sales assistant, Dr. Cantor. History of anemia, status post blood transfusion, Cryptogenic sources of the liver, chronic obstructive pulmonary disease, sleep apnea, cardiomyopathy, coronary artery disease. The patient is continuing to refuse positive airway pressure. Repeat labs. Education done. History of constipation, lactulose given. We will do follow up. She will need a good physical therapy. Kristin Rg MD
[2018-08-15] MEDS: Insulin Reg-LOW-Coverage SC SCH ×4 (08:26→21:58)
[2018-08-15] MEDS: Levalbuterol 0.63 MG/3 ML Inhal Soln UD IH SCH ×3 (08:50→19:27)
--- NOTE | 2018-08-15 09:42 | PN ---
DATE: 08/15/2018 LOCATION: The patient is in room 268. SUBJECTIVE: The patient is in no acute distress, nontoxic. No fevers and chills. No nausea. PHYSICAL EXAMINATION: VITAL SIGNS: Temperature is 98, blood pressure is 127/68, respiratory rate of 19, heart rate of 97. HEENT: Unremarkable. NECK: Supple. LUNGS: Have decreased breath sounds. HEART: Normal S1, S2. ABDOMEN: Soft, nontender. LABORATORY DATA: White count of 6.2, hemoglobin of 12, platelets of 74. BUN of 73, creatinine of 1. Urinalysis is noted. Microbiology reveals there is Proteus in the urine and sensitivities are noted. Review of orders reveals the patient to be off of antibiotics. ASSESSMENT AND PLAN: This is a 78-year-old female with asymptomatic bacteriuria, history of left leg cellulitis on top of chronic lymphedema, history of bilateral lower extremity cellulitis, hypertension, diabetes and chronic obstructive lung disease, currently now off of antibiotics. The patient is afebrile. Normal white count of 6.2 this morning. The patient is at risk for developing nosocomial infections. Abram Benitez MD
--- NOTE | 2018-08-15 11:11 | PN ---
DATE: 08/15/2018 PULMONARY PROGRESS NOTE REFERRING PHYSICIAN: Kristin Rg MD SUBJECTIVE: The patient is sitting up in bed. No acute distress. No overnight events reported. No headache, rhinitis, cough, shortness of breath, chest pain, abdominal pain, nausea, vomiting, diarrhea, or leg pain reported. OBJECTIVE: GENERAL: No acute distress. VITAL SIGNS: Blood pressure 127/68, pulse 97, temperature 97.9, and oxygen saturation 98%. HEENT: Moist mucous membranes. Crowded airway. NECK: Supple. No JVD. LUNGS: Decreased breath sounds at bases. CARDIOVASCULAR: S1 and S2 audible, positive murmur. ABDOMEN: Soft and nontender. No distention. No organomegaly. EXTREMITIES: Chronic lower extremity edema. NEUROLOGIC: Awake, alert, and verbal. Follows commands. MEDICATIONS: Reviewed. Tylenol 650 mg every 6 hours p.r.n. for moderate pain, Os-Cristo D one tab daily, Lasix 60 mg twice a day, Humulin R sliding scale before meals and at bedtime, lactulose 10 g three times a day, Xopenex 0.63 mg three times a day, Lidoderm patch topically to affected area, Mobic 15 mg p.o. daily, metoprolol tartrate 12.5 mg twice a day, [place] nasal spray three times a day p.r.n., spironolactone 25 mg twice a day, and Ursodiol 300 mg twice a day. LABORATORY DATA: Reviewed. WBC 6.2, RBC 3.82, hemoglobin 12.2, hematocrit 35.8, and platelets 74. Sodium 134, potassium 4.4, chloride 95, carbon dioxide 31, anion gap 13, BUN 73, creatinine 1, GFR 54, POC glucose 112, random glucose 113, calcium 9.8, total bilirubin 4.8, AST 52, ALT 46, alkaline phosphatase 111, total protein 6.2, albumin 2.9, globulin 3.3, and albumin-globulin ratio 0.9. IMPRESSION AND PLAN: Chronic obstructive lung disease, suspected sleep apnea syndrome, cardiomyopathy with severe valvular heart disease, coronary artery disease, pulmonary hypertension, cryptogenic cirrhotic liver, portal thrombus, hypertension, history of lower extremity cellulitis, lymphedema, malnutrition, esophagitis, gastritis, duodenitis, vertebral fracture, degenerative joint disease, severe aortic stenosis, and activities of daily living dysfunction. Pulmonary point of view: currently the patient is hemodynamically stable. Respiratory, the patient is stable. Continue inhaled bronchodilators, fall precaution, sleep apnea precaution, and head of bed elevated at 45 degrees. Continue to encourage continuous positive airway pressure use at bedtime, and sequential compression devices to bilateral lower extremity for deep venous thrombosis prophylaxis. Continue follow up with Gastroenterology. The patient would benefit from physical therapy. This patient was seen and examined with Dr. Cantor. Discussed assessment and plan as described above. Thank you for this consult. We will follow with you. Alec PrKATHY finley Pablo Cantor MD ARACELI
[2018-08-15] MEDS: Lidocaine 5% Patch TD SCH (11:45)
[2018-08-15] MEDS: Calcium-Vit D 250 mg-125 Units Tab UD PO SCH (11:46)
--- NOTE | 2018-08-15 12:02 | CP.PCM.PN ---
Subjective - Date & Time of Evaluation Date of Evaluation: 08/15/18 Time of Evaluation: 10:00 - Subjective Subjective: PGY-4 GI Fellow Prog Note Pt lyingin in bed when seen this AM. Awoke to voice and able to state name and location of [place], but not date. States abd pain stable and tolerating diet. 5 point ROS negative other than stated above Objective - Vital Signs/Intake and Output Vital Signs (last 24 hours): Temp Pulse Resp BP Pulse Ox 97.9 F 89 19 116/60 98 08/15/18 06:00 08/15/18 11:45 08/15/18 06:00 08/15/18 11:45 08/15/18 06:00 Intake and Output: 08/15/18 08/15/18 06:59 18:59 Intake Total 120 Balance 120 - Medications Medications: Current Medications Acetaminophen (Tylenol 325mg Tab) 650 mg PO Q6H PRN PRN Reason: Pain, moderate (4-7) Last Admin: 08/15/18 08:29 Dose: 650 mg Calcium/Vitamin D (Oscal-D 250 Mg-125 Units Tab) 1 tab PO DAILY [facility] Last Admin: 08/15/18 11:46 Dose: 1 tab Furosemide (Lasix) 60 mg PO BID [facility] Last Admin: 08/15/18 11:44 Dose: 60 mg Insulin Human Regular (Humulin R Low) 0 units SC [facility]; Protocol Last Admin: 08/15/18 08:26 Dose: Not Given Lactulose (Enulose) 10 gm PO TID [facility] Last Admin: 08/14/18 17:03 Dose: Not Given Levalbuterol HCl (Xopenex) 0.63 mg IH TIDRESP [facility] Last Admin: 08/15/18 08:50 Dose: 0.63 mg Lidocaine (Lidoderm) 1 ea TD DAILY [facility] Last Admin: 08/15/18 11:45 Dose: 1 ea Meloxicam (Mobic) 15 mg PO DAILY [facility] Last Admin: 08/15/18 11:46 Dose: 15 mg Metoprolol Tartrate (Lopressor) 12.5 mg PO BID [facility] Last Admin: 08/15/18 11:45 Dose: 12.5 mg Sodium Chloride ([place] Nasal [place]) 0 ml NS TID PRN PRN Reason: Nasal congestion Last Admin: 08/12/18 09:14 Dose: 2 spr Spironolactone (Aldactone) 25 mg PO BID [facility] Last Admin: 08/15/18 11:46 Dose: 25 mg Ursodiol (Actigall) 300 mg PO BID [facility] Last Admin: 08/15/18 11:46 Dose: 300 mg - Labs Labs: 08/15/18 06:40 08/15/18 06:40 PT 13.5 SECONDS (9.4-12.5) H 08/09/18 07:35 INR 1.17 08/09/18 07:35 APTT 36.0 Seconds (25.1-36.5) 08/04/18 21:45 - Constitutional Appears: No Acute Distress, Chronically Ill - Head Exam Head Exam: ATRAUMATIC Additional comments: temporal wasting - Eye Exam Eye Exam: EOMI, Scleral icterus - ENT Exam ENT Exam: Mucous Membranes Dry. absent: Mucous Membranes Moist - Respiratory Exam Respiratory Exam: NORMAL BREATHING PATTERN. absent: Accessory Muscle Use, Respiratory Distress - GI/Abdominal Exam GI & Abdominal Exam: Soft, Normal Bowel Sounds. absent: Bruit, Distended, Firm, Guarding, Rigid, Tenderness, Pulsatile Mass Assessment and Plan - Assessment and Plan (Free Text) Assessment: 78 yo WF with multiple comorbities including cirrhosis, CAD, Pulm HTN, COPD, Aortic Stenosis sent in from long-term for weakness and hypokalemia. 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 Suspect Cardiac or PAULA. Increased bilirubin is concerning from 2s to 8.2 on admission, INR 1.42 on admission with MELD-Na 20. - PVT: Seen on admission CT, Doppler did not reveal any thrombus - EV: Last EGD 4 yrs ago, unknown results - HCC: No masses seen on admission CT - Ascites: On Spironolactone and Furoseide though not in typical ratio - Hepatic Encephalopathy: NH3 elevated on 08/08/18; unclear trigger, no obvious signs of bleeding, infection, [place], etc. # CHF, CAD, Pulm HTN, Right sided CHF, Severe # COPD # H/o Colonic AVMs Plan: - Abd Doppler reviewed: No obvious thrombus, patent vessels. Splenomegaly with varices. No ascites - MRCP with Abd MRI reviewed: Severe dilation of proximal CBD 16mm and normal distal CBD 3mm possibly due to CBD stricture. Pt is extremely high risk for complications with ERCP/EUS with extensive co-morbidities. - Low direct bilirubin is an unexpected finding in setting of possible biliary obstruction. Indirect could be from hemolysis, poor cardiac output to liver among others. - Cont Ursodiol - Cardiology consulted, appreciate recs - Monitor CMP, CBC, INR daily - Low Na diet - Cont diuretics - Stopped PPI due to progressive thrombocytopenia - Cont lactulose, titrate to at least 3 BMs/day --- Reordered lactulose, should be continued to avoid encephalopathy Pt seen and examined with Dr. Freitas; please see attestation for further recs/changes
--- NOTE | 2018-08-15 15:21 | CP.PCM.PN ---
Subjective - Date & Time of Evaluation Date of Evaluation: 08/15/18 Time of Evaluation: 15:20 - Subjective Subjective: RENAL Note s: seen and examined mental status had improved earlier after lactulose and ammonia level trended down she denies SOB. appears confused pe: vs as below. frail chronically ill appearing, debilitated gen: nad sclera: icteric op: clear neck: supple cv: +S1+s2 no rub lungs: cta ant abd: soft nt nd no organomegaly ext: no edema neuro: following command arousable psych: flat skin redness b/l lower extremities imp: hypokalemia/ chf / alkalosis/ anemia/hyponatremia/cirrhosis with portal HTN, hepatic enceph/severe with RV dysfunction/thrombocytopenia plan: k remains stable. supplement as needed CHF management as per cardio pt on lasix and aldactone pt not a candidate for samsca due to cirrhosis GI and cardiology following started lactulose avoids nsaids such as meloxicam prognosis guarded Hyponatremia with IVF Objective - Vital Signs/Intake and Output Vital Signs (last 24 hours): Temp Pulse Resp BP Pulse Ox 98.4 F 98 H 20 116/60 98 08/15/18 12:00 08/15/18 14:00 08/15/18 12:00 08/15/18 12:00 08/15/18 06:00 Intake and Output: 08/15/18 08/15/18 06:59 18:59 Intake Total 120 Balance 120 - Medications Medications: Current Medications Acetaminophen (Tylenol 325mg Tab) 650 mg PO Q6H PRN PRN Reason: Pain, moderate (4-7) Last Admin: 08/15/18 08:29 Dose: 650 mg Calcium/Vitamin D (Oscal-D 250 Mg-125 Units Tab) 1 tab PO DAILY [facility] Last Admin: 08/15/18 11:46 Dose: 1 tab Furosemide (Lasix) 60 mg PO BID [facility] Last Admin: 08/15/18 11:44 Dose: 60 mg Insulin Human Regular (Humulin R Low) 0 units SC [facility]; Protocol Last Admin: 08/15/18 12:11 Dose: 1 u Lactulose (Enulose) 10 gm PO TID [facility] Last Admin: 08/14/18 17:03 Dose: Not Given Levalbuterol HCl (Xopenex) 0.63 mg IH TIDRESP [facility] Last Admin: 08/15/18 13:29 Dose: 0.63 mg Lidocaine (Lidoderm) 1 ea TD DAILY [facility] Last Admin: 08/15/18 11:45 Dose: 1 ea Meloxicam (Mobic) 15 mg PO DAILY [facility] Last Admin: 08/15/18 11:46 Dose: 15 mg Metoprolol Tartrate (Lopressor) 12.5 mg PO BID [facility] Last Admin: 08/15/18 11:45 Dose: 12.5 mg Sodium Chloride ([place] Nasal [place]) 0 ml NS TID PRN PRN Reason: Nasal congestion Last Admin: 08/12/18 09:14 Dose: 2 spr Spironolactone (Aldactone) 25 mg PO BID [facility] Last Admin: 08/15/18 11:46 Dose: 25 mg Ursodiol (Actigall) 300 mg PO BID [facility] Last Admin: 08/15/18 11:46 Dose: 300 mg - Labs Labs: 08/15/18 06:40 08/15/18 06:40 PT 13.5 SECONDS (9.4-12.5) H 08/09/18 07:35 INR 1.17 08/09/18 07:35 APTT 36.0 Seconds (25.1-36.5) 08/04/18 21:45
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
[2018-08-16] MEDS: Insulin Reg-LOW-Coverage SC SCH ×4 (07:44→21:59)
[2018-08-16] MEDS: Levalbuterol 0.63 MG/3 ML Inhal Soln UD IH SCH ×3 (08:28→19:48)
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
--- NOTE | 2018-08-16 08:53 | PN ---
DATE: 08/15/2018 The patient is in room 268, bed 1. Detailed note has been already written by Deisi Nair, this is an additional note. SUBJECTIVE: The patient was brought to the hospital from [facility] due to generalized weakness and found to have hypokalemia. The patient is a known case of coronary artery disease, history of PTCA of RCA in 2008. The patient had diastolic dysfunction, congestive heart failure, and severe aortic stenosis in the past. The patient refused TAVR, history of hypertension, dementia, COPD, diabetes mellitus, cryptogenic cirrhosis of the liver, urinary tract infection, anemia, cellulitis of the legs, and fall. The patient apparently is not in any respiratory distress. Denies chest pain. PHYSICAL EXAMINATION: VITAL SIGNS: Blood pressure is 116/60, respirations 20, pulse 95, and temperature 98.4. HEENT: Head is normocephalic. Eyes; pupils normal. Conjunctivae normal. Nose and throat; normal. NECK: JVP low. Carotids equal. THORAX: AP diameter normal. LUNGS: No rales. CARDIOVASCULAR: S1 and S2 ejection systolic murmur 3/6. No rub. ABDOMEN: Bowel sound normal. EXTREMITIES: No clubbing. No cyanosis. LABORATORY DATA: Shows WBC 6.2., hemoglobin 12.2, hematocrit 35.8, and platelet 74. Sodium 134, potassium 4.4, BUN 73, and creatinine 1. Sugar random 112, 172, and 113. Total bilirubin 4.8. AST 52. ALT 46. Alkaline phosphatase 111. Total protein 6.2. Albumin 2.9. Prothrombin time on 08/09/2018 was 13.5. PT with INR 1.17. PLAN: The patient's heart rate is 112. Blood pressure is stable. Continue nutritional support and supportive care. We will continue Lopressor 12.5 b.i.d., Aldactone 25 b.i.d., Lasix 80 b.i.d. and we will follow with you closely. Pablo Shah MD
[2018-08-16] MEDS ORDERED: Lactulose 10 gm/15 ml (Rectal Use) PR ONE (10:00)
--- NOTE | 2018-08-16 11:11 | PN ---
DATE: 08/16/2018 PULMONARY PROGRESS NOTE REFERRING PHYSICIAN: Kristin Rg MD SUBJECTIVE: The patient found lying in bed asleep; not arousable to verbal stimuli; arousable to painful tactile stimuli. Nursing staff reports the patient has not eaten breakfast this morning and has been in this state since the shift started this morning. No hematemesis, hematuria, hemoptysis, or diarrhea reported. OBJECTIVE: GENERAL: No acute distress. VITAL SIGNS: Blood pressure 103/41, pulse 66, temperature 98, and oxygen saturation 100% on nasal cannula. HEENT: Moist mucous membranes. Crowded airway. NECK: Supple. No JVD. LUNGS: Decreased breath sounds at the bases. CARDIOVASCULAR: S1 and S2 audible, positive murmur. ABDOMEN: Soft. No distention. No organomegaly. EXTREMITIES: Chronic lower extremity edema. NEUROLOGIC: Asleep; not arousable to verbal stimuli; arousable to painful tactile stimuli. MEDICATIONS: Reviewed. Tylenol 650 mg every 6 hours p.r.n., Os-Cristo one tab daily, Lasix 60 mg twice a day, Humulin R sliding scale before meals and at bedtime, lactulose 30 g three times a day, Xopenex 0.63 mg inhalation three times a day, lidocaine patch 1 topically to affected area, Mobic 15 mg daily, metoprolol tartrate 12.5 mg twice a day, [place] nasal spray three times a day p.r.n., spironolactone 25 mg twice a day, and Ursodiol 300 mg twice a day. LABORATORY DATA: Reviewed. POC glucose 104. IMPRESSION AND PLAN: Chronic obstructive lung disease, suspected sleep apnea syndrome, cardiomyopathy with severe valvular heart disease, coronary artery disease, pulmonary hypertension, cryptogenic cirrhotic liver, portal thrombus, hypertension, history of lower extremity cellulitis, lymphedema, malnutrition, esophagitis, gastritis, duodenitis, vertebral fracture, degenerative joint disease, severe aortic stenosis, activities of daily living dysfunction, and altered mental status. We will stop Fleet Enema and order lactulose enema to be given stat. We will order stat ABG, stat CBC, and stat CMP. We will order stat CT scan of the head without contrast. Head of bed elevated at 45 degrees. Continue inhaled bronchodilators and sleep apnea precaution. Continue to encourage continuous positive airway pressure use and sequential compression devices to bilateral lower extremity for deep venous thrombosis prophylaxis. This patient was seen and examined with Dr. Cantor. Discussed assessment and plan as described above. Thank you for this consult. We will follow with you. Alec Marie APN Pablo Cantor MD [facility]
--- NOTE | 2018-08-16 11:25 | CP.PCM.PN ---
<Timothy Yang - Last Filed: 08/16/18 11:21> Subjective - Date & Time of Evaluation Date of Evaluation: 08/16/18 Time of Evaluation: 10:30 - Subjective Subjective: PGY-4 GI Fellow Consult Note Pt sleeping in bed when seen this AM. Awoke some to voice but not conversive. Per chart review, she is not stooling at least 3 BMs/day to avoid worsening hepatic encephalopathy. Unable to obtain ROS due to clinical condition Objective - Vital Signs/Intake and Output Vital Signs (last 24 hours): Temp Pulse Resp BP Pulse Ox 98 F 66 18 103/41 L 100 08/16/18 06:00 08/16/18 06:00 08/16/18 06:00 08/16/18 06:00 08/16/18 06:00 Intake and Output: 08/16/18 08/16/18 06:59 18:59 Intake Total 0 Balance 0 - Medications Medications: Current Medications Acetaminophen (Tylenol 325mg Tab) 650 mg PO Q6H PRN PRN Reason: Pain, moderate (4-7) Last Admin: 08/15/18 08:29 Dose: 650 mg Calcium/Vitamin D (Oscal-D 250 Mg-125 Units Tab) 1 tab PO DAILY [facility] Last Admin: 08/15/18 11:46 Dose: 1 tab Furosemide (Lasix) 60 mg PO BID [facility] Last Admin: 08/15/18 17:21 Dose: 60 mg Insulin Human Regular (Humulin R Low) 0 units SC [facility]; Protocol Last Admin: 08/16/18 07:44 Dose: Not Given Lactulose (Enulose) 30 gm PO TID [facility] Last Admin: 08/15/18 17:24 Dose: 30 gm Levalbuterol HCl (Xopenex) 0.63 mg IH TIDRESP [facility] Last Admin: 08/16/18 08:28 Dose: 0.63 mg Lidocaine (Lidoderm) 1 ea TD DAILY [facility] Last Admin: 08/15/18 11:45 Dose: 1 ea Meloxicam (Mobic) 15 mg PO DAILY [facility] Last Admin: 08/15/18 11:46 Dose: 15 mg Metoprolol Tartrate (Lopressor) 12.5 mg PO BID [facility] Last Admin: 08/15/18 17:23 Dose: 12.5 mg Sodium Chloride ([place] Nasal [place]) 0 ml NS TID PRN PRN Reason: Nasal congestion Last Admin: 08/12/18 09:14 Dose: 2 spr Spironolactone (Aldactone) 25 mg PO BID [facility] Last Admin: 08/15/18 17:23 Dose: 25 mg Ursodiol (Actigall) 300 mg PO BID [facility] Last Admin: 08/15/18 17:22 Dose: 300 mg - Labs Labs: 08/15/18 06:40 08/15/18 06:40 PT 13.5 SECONDS (9.4-12.5) H 08/09/18 07:35 INR 1.17 08/09/18 07:35 APTT 36.0 Seconds (25.1-36.5) 08/04/18 21:45 - Constitutional Appears: No Acute Distress, Cachectic, Chronically Ill - Head Exam Head Exam: ATRAUMATIC Additional comments: temporal wasting - ENT Exam ENT Exam: Mucous Membranes Dry. absent: Mucous Membranes Moist - Respiratory Exam Respiratory Exam: NORMAL BREATHING PATTERN. absent: Accessory Muscle Use, Respiratory Distress - GI/Abdominal Exam GI & Abdominal Exam: Soft, Normal Bowel Sounds. absent: Bruit, Distended, Firm, Guarding, Rigid, Tenderness, Mass, Organomegaly, Pulsatile Mass Assessment and Plan - Assessment and Plan (Free Text) Assessment: 78 yo WF with multiple comorbities including cirrhosis, CAD, Pulm HTN, COPD, Aortic Stenosis [facility] weakness and hypokalemia. 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 Suspect Cardiac or PAULA. Increased bilirubin is concerning from 2s to 8.2 on admission, INR 1.42 on admission with MELD-Na 20. - PVT: Seen on admission CT, Doppler did not reveal any thrombus - EV: Last EGD 4 yrs ago, unknown results - HCC: No masses seen on admission CT - Ascites: On Spironolactone and Furoseide though not in typical ratio - Hepatic Encephalopathy: NH3 elevated on 08/08/18; unclear trigger, no obvious s igns of bleeding, infection, [place], etc. # CHF, CAD, Pulm HTN, Right sided CHF, Severe # COPD # H/o Colonic AVMs Plan: - Abd Doppler reviewed: No obvious thrombus, patent vessels. Splenomegaly with varices. No ascites - MRCP with Abd MRI reviewed: Severe dilation of proximal CBD 16mm and normal distal CBD 3mm possibly due to CBD stricture. Pt is extremely high risk for complications with ERCP/EUS with extensive co-morbidities. - Low direct bilirubin is an unexpected finding in setting of possible biliary obstruction. Indirect could be from hemolysis, poor cardiac output to liver among others. - Cont Ursodiol - Cardiology consulted, appreciate recs - Monitor CMP, CBC, INR daily - Low Na diet - Cont diuretics - Stopped PPI due to progressive thrombocytopenia - Cont lactulose, titrate to at least 3 BMs/day --- Reordered lactulose, should be continued to avoid encephalopathy --- Can give rectal lactulose if unable to take PO Pt seen and examined with Dr. Freitas; please see attestation for further recs/changes <Stewart Freitas V - Last Filed: 08/16/18 21:53> Objective - Vital Signs/Intake and Output Vital Signs (last 24 hours): Temp Pulse Resp BP Pulse Ox 97.8 F 63 18 106/47 L 100 08/16/18 18:00 08/16/18 18:00 08/16/18 18:00 08/16/18 18:00 08/16/18 06:00 Intake and Output: 08/16/18 08/17/18 18:59 06:59 Intake Total 420 Balance 420 - Medications Medications: Current Medications Acetaminophen (Tylenol 325mg Tab) 650 mg PO Q6H PRN PRN Reason: Pain, moderate (4-7) Last Admin: 08/15/18 08:29 Dose: 650 mg Calcium/Vitamin D (Oscal-D 250 Mg-125 Units Tab) 1 tab PO DAILY [facility] Last Admin: 08/16/18 13:07 Dose: 1 tab Furosemide (Lasix) 60 mg PO BID [facility] Last Admin: 08/16/18 17:22 Dose: 60 mg Cefepime HCl (Maxipime 1gm) 1 gm in 100 mls @ 100 mls/hr IVPB Q12 [facility]; Protocol Insulin Human Regular (Humulin R Low) 0 units SC ACHS [facility]; Protocol Last Admin: 08/16/18 17:20 Dose: 1 u Lactulose (Enulose) 30 gm PO TID [facility] Last Admin: 08/16/18 17:21 Dose: 30 gm Levalbuterol HCl (Xopenex) 0.63 mg IH TIDRESP [facility] Last Admin: 08/16/18 19:48 Dose: 0.63 mg Lidocaine (Lidoderm) 1 ea TD DAILY [facility] Last Admin: 08/16/18 14:59 Dose: 1 ea Meloxicam (Mobic) 15 mg PO DAILY [facility] Last Admin: 08/16/18 13:06 Dose: 15 mg Metoprolol Tartrate (Lopressor) 12.5 mg PO BID [facility] Last Admin: 08/16/18 17:21 Dose: 12.5 mg Sodium Chloride ([place] Nasal [place]) 0 ml NS TID PRN PRN Reason: Nasal congestion Last Admin: 08/12/18 09:14 Dose: 2 spr Spironolactone (Aldactone) 25 mg PO BID [facility] Last Admin: 08/16/18 17:21 Dose: 25 mg Ursodiol (Actigall) 300 mg PO BID [facility] Last Admin: 08/16/18 17:21 Dose: 300 mg - Labs Labs: 08/16/18 14:00 08/16/18 14:00 PT 13.5 SECONDS (9.4-12.5) H 08/09/18 07:35 INR 1.17 08/09/18 07:35 APTT 36.0 Seconds (25.1-36.5) 08/04/18 21:45 Attending/Attestation - Attestation I have personally seen and examined this patient.: Yes I have fully participated in the care of the patient.: Yes I have reviewed all pertinent clinical information, including history, physical exam and plan: Yes Notes (Text): This is an addendum to GI progress report dictated by the GI Fellow. The patient was seen and examined earlier. Medical records, lab studies, imagings were reviewed. Last 24 hours events reviewed. Agreed with the above treatment plan as outlined in GI Fellow 's notes with the addition of the following patient is encephalopathic Overall prognosis of the patient appears poor Decompensated cirrhosis with critical aortic stenosis, bleeding diathesis, pulmonary hypertension Would not contemplate any endoscopy evaluation for this patient's biliary stricture Would recommend supportive care 08/16/18 21:51
[2018-08-16 12:01] LABS: ARTERIAL BLOOD GAS HCO3 29.4 mmol/L (21-28); ARTERIAL BLOOD GAS HEMOGLOBIN 10.1 g/dL (11.7-17.4); ARTERIAL BLOOD GAS O2 SAT 99.8 % (95-98); ARTERIAL BLOOD GAS PCO2 36 mm/Hg (35-45); ARTERIAL BLOOD GAS PH 7.52 (7.35-7.45); ARTERIAL BLOOD GAS TCO2 30.5 mmol.L (22-28)
--- NOTE | 2018-08-16 12:30 | CT ---
Date of service: 08/16/2018 PROCEDURE: CT HEAD WITHOUT CONTRAST. HISTORY: AMS COMPARISON: Unenhanced head CT 11/16/2017. TECHNIQUE: Axial computed tomography images were obtained through the head/brain without intravenous contrast. Radiation dose: Total exam DLP = 883.8 mGy-cm. This CT exam was performed using one or more of the following dose reduction techniques: Automated exposure control, adjustment of the mA and/or kV according to patient size, and/or use of iterative reconstruction technique. FINDINGS: HEMORRHAGE: No intracranial hemorrhage. BRAIN: Good corticomedullary differentiation is seen. Reiterated diffuse cerebral atrophy and chronic microangiopathy. No suspicious extra-axial fluid collection is identified and the midline brain anatomy appears grossly nonfocal as imaged. No mass effect identified. VENTRICLES: Unremarkable. No hydrocephalus. CALVARIUM: Unremarkable. PARANASAL SINUSES: Unremarkable as visualized. No significant inflammatory changes. MASTOID AIR CELLS: Unremarkable as visualized. No inflammatory changes. OTHER FINDINGS: None. IMPRESSION: Stable age related neuro degenerative changes without definite acute findings by standard CT criteria. Follow-up CT or MRI are available if clinically warranted.
--- NOTE | 2018-08-16 13:00 | PN ---
DATE: 08/16/2018 SUBJECTIVE: The patient is in bed, in no acute distress, nontoxic. PHYSICAL EXAMINATION: VITAL SIGNS: Temperature is 98, blood pressure is 103/40, respiratory rate of 18. HEENT: Unremarkable. NECK: Supple. LUNGS: Decreased breath sounds. HEART: Normal S1, S2. ABDOMEN: Soft. LABORATORY DATA: Examination reveals a white count of 6.2 and the chemistries reveal the patient's creatinine is 1. MEDICATIONS: Review of orders reveals the patient to be off antibiotics. ASSESSMENT AND PLAN: A 78-year-old female with asymptomatic bacteriuria, history of left leg cellulitis on top of chronic lymphedema, history of bilateral lower extremity edema and cellulitis, diabetes, chronic obstructive lung disease, currently off antibiotics, afebrile. The patient is at risk for developing nosocomial infections. We will follow with you. Abram Benitez MD
[2018-08-16] MEDS: Calcium-Vit D 250 mg-125 Units Tab UD PO SCH (13:07)
[2018-08-16 14:24] LABS: BASO # 0.02 K/mm3 (0.0-2.0); BASO % 0.3 % (0.0-3.0); EOS # 0.5 (0.0-0.7); EOS % 7.5 % (1.5-5.0); GRAN # 3.98 (1.4-6.5); GRAN % 62.1 % (50.0-68.0); HEMOGLOBIN 12.3 g/dL (12.0-16.0); LYMPH # 1.2 (1.2-3.4); LYMPH % 17.9 % (22.0-35.0); MEAN CELL VOLUME 94.3 fl (80.0-105.0); MEAN PLATELET VOLUME 9.6 fl (7.0-11.0); MONO # 0.8 (0.1-0.6); MONO % 12.2 % (1.0-6.0); RBC 3.84 10^6/uL (3.5-6.1); WHITE BLOOD COUNT 6.4 10^3/uL (4.5-11.0)
[2018-08-16 14:34] LABS: ALB/GLOB RATIO 0.9 (1.1-1.8); ALBUMIN 2.8 g/dL (3.0-4.8); ALT/SGPT 48 U/L (7-56); AST/SGOT 52 U/L (14-36); BLOOD UREA NITROGEN 68 mg/dL (7-21); CALCIUM 9.9 mg/dL (8.4-10.5); GFR NON-AFRICAN AMERICAN > 60
--- NOTE | 2018-08-16 14:37 | CP.PCM.PN ---
Subjective - Date & Time of Evaluation Date of Evaluation: 08/16/18 Time of Evaluation: 14:37 - Subjective Subjective: RENAL Note s: seen and examined mental status had improved earlier after lactulose and ammonia level trended down she denies SOB. appears confused pe: vs as below. frail chronically ill appearing, debilitated gen: nad sclera: icteric op: clear neck: supple cv: +S1+s2 no rub lungs: cta ant abd: soft nt nd no organomegaly ext: no edema neuro: following command arousable psych: flat skin redness b/l lower extremities imp: hypokalemia/ chf / alkalosis/ anemia/hyponatremia/cirrhosis with portal HTN, hepatic enceph/severe with RV dysfunction/thrombocytopenia plan: k remains stable. supplement as needed CHF management as per cardio pt on lasix and aldactone pt not a candidate for samsca due to cirrhosis GI and cardiology following started lactulose avoids nsaids such as meloxicam prognosis guarded Hyponatremia improved with IVF now stable Objective - Vital Signs/Intake and Output Vital Signs (last 24 hours): Temp Pulse Resp BP Pulse Ox 97.6 F 76 18 112/62 100 08/16/18 12:00 08/16/18 12:00 08/16/18 12:00 08/16/18 13:06 08/16/18 06:00 Intake and Output: 08/16/18 08/16/18 06:59 18:59 Intake Total 0 Balance 0 - Medications Medications: Current Medications Acetaminophen (Tylenol 325mg Tab) 650 mg PO Q6H PRN PRN Reason: Pain, moderate (4-7) Last Admin: 08/15/18 08:29 Dose: 650 mg Calcium/Vitamin D (Oscal-D 250 Mg-125 Units Tab) 1 tab PO DAILY [facility] Last Admin: 08/16/18 13:07 Dose: 1 tab Furosemide (Lasix) 60 mg PO BID [facility] Last Admin: 08/16/18 13:06 Dose: 60 mg Insulin Human Regular (Humulin R Low) 0 units SC [facility]; Protocol Last Admin: 08/16/18 12:24 Dose: Not Given Lactulose (Enulose) 30 gm PO TID [facility] Last Admin: 08/16/18 13:07 Dose: 30 gm Levalbuterol HCl (Xopenex) 0.63 mg IH TIDRESP [facility] Last Admin: 08/16/18 13:31 Dose: 0.63 mg Lidocaine (Lidoderm) 1 ea TD DAILY [facility] Last Admin: 08/15/18 11:45 Dose: 1 ea Meloxicam (Mobic) 15 mg PO DAILY [facility] Last Admin: 08/16/18 13:06 Dose: 15 mg Metoprolol Tartrate (Lopressor) 12.5 mg PO BID [facility] Last Admin: 08/16/18 13:06 Dose: 12.5 mg Sodium Chloride ([place] Nasal [place]) 0 ml NS TID PRN PRN Reason: Nasal congestion Last Admin: 08/12/18 09:14 Dose: 2 spr Spironolactone (Aldactone) 25 mg PO BID [facility] Last Admin: 08/16/18 13:07 Dose: 25 mg Ursodiol (Actigall) 300 mg PO BID [facility] Last Admin: 08/16/18 13:06 Dose: 300 mg - Labs Labs: 08/16/18 14:00 08/16/18 14:00 PT 13.5 SECONDS (9.4-12.5) H 08/09/18 07:35 INR 1.17 08/09/18 07:35 APTT 36.0 Seconds (25.1-36.5) 08/04/18 21:45
[2018-08-16] MEDS: Lidocaine 5% Patch TD SCH (14:59)
--- NOTE | 2018-08-16 16:41 | PN ---
DATE: 08/16/2018 LOCATION: The patient in room 268, bed 1. SUBJECTIVE: The patient was brought from [facility] due to generalized weakness, found to have hypokalemia. The patient has a known case of coronary artery disease, history of PTCA of RCA in 2008, also had severe aortic stenosis in the past. She was offered TAVR surgery, but she refused. The patient also known to have congestive heart failure due to elevated diastolic dysfunction, hypertension, dementia, COPD, diabetes mellitus, cryptogenic cirrhosis of liver, thrombocytopenia, urinary tract infection, anemia, cellulitis of the legs, and the patient also had a fall. The patient right now is confused, but in no respiratory distress. PHYSICAL EXAMINATION: LUNGS: Clear. CARDIOVASCULAR: S1 and S2 ejection systolic murmur. No rub. ABDOMEN: Bowel sound normal. EXTREMITIES: No clubbing. No cyanosis. The patient needs nutritional support. She had been losing weight in the last few months because not eating well. In the meantime, the patient is getting lactulose 30 mg p.o. t.i.d., Actigall 300 mg b.i.d., spironolactone 25 b.i.d., furosemide 60 mg b.i.d., Mobic 15 mg daily, metoprolol 12.5 b.i.d., Xopenex hand nebulizer therapy. We will continue current therapy. Pablo Shah MD
[2018-08-16 17:02] LABS: PH,URINE >=9.0 (4.7-8.0); URINE BILIRUBIN NEGATIVE (NEGATIVE); URINE BLOOD LARGE (NEGATIVE); URINE GLUCOSE (UA) NEGATIVE (NEGATIVE); URINE LEUKOCYTE ESTERASE LARGE Leu/uL (NEGATIVE); URINE PROTEIN 30 mg/dL (<30 mg/dL)
[2018-08-16 17:09] LABS: URINE APPEARANCE TURBID (CLEAR); URINE COLOR RED (YELLOW)
[2018-08-16 17:22] LABS: URINE BACTERIA MANY /hpf; URINE RBC 25 - 30 /hpf (0-2); URINE TRIPLE PHOSPHATE CRYSTAL FEW /hpf; URINE WBC TNTC /hpf (0-6)
[2018-08-16] MEDS: Cefepime 1gm in NS 100ml 1 GM/100 ML BAG IVPB SCH (21:53)
[2018-08-17] MEDS ORDERED: Lidocaine 2% Inj (20ml) ONE (06:07)
[2018-08-17 06:40] LABS: HEMOGLOBIN 11.7 g/dL (12.0-16.0); MEAN CELL VOLUME 94.6 fl (80.0-105.0); MEAN CORPUSCULAR HEMOGLOBIN 31.7 pg (25.0-35.0); MEAN CORPUSCULAR HGB CONC 33.5 g/dl (31.0-37.0); MEAN PLATELET VOLUME 9.4 fl (7.0-11.0); RBC 3.69 10^6/uL (3.5-6.1); RED CELL DISTRIBUTION WIDTH 17.2 % (11.5-14.5); WHITE BLOOD COUNT 6.5 10^3/uL (4.5-11.0)
[2018-08-17 07:04] LABS: CALCIUM 9.7 mg/dL (8.4-10.5)
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
[2018-08-17] MEDS: Insulin Reg-LOW-Coverage SC SCH ×4 (08:00→21:42)
[2018-08-17] MEDS: Levalbuterol 0.63 MG/3 ML Inhal Soln UD IH SCH ×3 (08:03→20:30)
--- NOTE | 2018-08-17 08:18 | PN ---
DATE: 08/16/2018 SUBJECTIVE: The patient is a 78-year-old female. The patient was seen and examined at the bedside on 08/16/2018. Sleepy, arousable, confused. No fever. No chills. No hematuria. No hematochezia. No headache. No dizziness. No chest pain. No palpitation. The patient is a very poor historian. PHYSICAL EXAMINATION: VITAL SIGNS: Temperature 98, pulse 66, respiratory rate 18, blood pressure 103/41, and pulse oximetry 100%. HEENT: Head is normocephalic and atraumatic. Eyes PERRLA. Extraocular muscles are intact. Conjunctivae clear. Nose patent. Mucous membranes moist. NECK: Supple. No carotid bruits. No JVD or thyromegaly. CHEST: Bilaterally symmetrical. HEART: S1 and S2 positive. LUNGS: Clear to auscultation. ABDOMEN: Soft. Bowel sounds present. No organomegaly. EXTREMITIES: No edema. No cyanosis. NEUROLOGIC: The patient is awake but confused. MEDICATIONS: Tylenol, Os-Cristo, Lasix, insulin, Xopenex, Lidoderm, Mobic, Lopressor, spironolactone, Actigall. LABORATORY DATA: White blood cells 6.2, hemoglobin 12.2, hematocrit 35.8, platelets 74. Sodium 134, potassium 4.4, BUN 73, creatinine 1, glucose 113. ASSESSMENT AND PLAN: The patient is a 78-year-old lady with thrombocytopenia, hyperglycemia, renal insufficiency. Has multiple comorbidities who presents cryptogenic cirrhosis of the liver, coronary artery disease, pulmonary hypertension, chronic obstructive pulmonary disease , aortic stenosis. Refused surgery long time ago. Came with electrolyte imbalance, weakness, peripheral vascular disease, ascites, on spironolactone, emphysema though not in typical ratio, hepatic encephalopathy and H3 elevated on 08/08/2018, unclear etiology. No obvious signs of bleeding. In fact , may be due to cirrhosis of the liver. Congestive heart failure, is right sided. History of chronic obstructive pulmonary disease. Constipation, got lactulose, finally did a bowel movement. She is getting ursodiol Gastroenterology is on the case. Monitoring labs. Continue lactulose and titrate to at least three bowel movements per day. It is important to continue lactulose to avoid encephalopathy. Gastroenterology is suggesting rectal lactulose if unable to tolerate the oral. We will follow up. Kristin Rg MD [facility] # [id number] [facility]
[2018-08-17] MEDS: Calcium-Vit D 250 mg-125 Units Tab UD PO SCH (09:53)
[2018-08-17] MEDS: Lidocaine 5% Patch TD SCH (09:53)
[2018-08-17] MEDS: Cefepime 1gm in NS 100ml 1 GM/100 ML BAG IVPB SCH ×2 (11:16→21:43)
--- NOTE | 2018-08-17 11:56 | PN ---
DATE: 08/17/2018 PULMONARY PROGRESS NOTE REFERRING PHYSICIAN: Kristin Rg MD SUBJECTIVE: The patient is sitting up in bed, being fed by nursing staff. The patient is verbal, but continues to keep eyes closed. No acute distress. No overnight events reported. No headache, rhinitis, cough, shortness of breath, chest pain, abdominal pain, nausea, vomiting, diarrhea, leg pain or leg swelling reported. OBJECTIVE: GENERAL: No acute distress. VITAL SIGNS: Blood pressure 125/66, pulse 63, temperature 98.5 and oxygen saturation 100% on room air. HEENT: Moist mucous membranes. Crowded airway. NECK: Supple. No JVD. LUNGS: Decreased breath sounds at the bases. CARDIOVASCULAR: S1 and S2 audible, positive murmur. ABDOMEN: Soft. No distention. No organomegaly. EXTREMITIES: No bilateral lower extremity edema. NEUROLOGIC: Verbal, keeps the eyes closed. MEDICATIONS: Reviewed. Tylenol 650 mg every 6 hours p.r.n. for moderate pain, Os-Cristo one tab daily, cefepime 1 g every 12 hours, Lasix 60 mg twice a day, Humulin R sliding scale a.c. and at bedtime, lactulose 30 g three times a day, Xopenex 0.63 mg inhalation three times a day, Lidoderm patch topically daily, metoprolol tartrate 12.5 mg twice a day, sodium chloride nasal spray three times a day p.r.n., spironolactone 25 mg twice a day and Ursodiol 300 mg twice a day. LABORATORY DATA: Reviewed. WBC 6.5, RBC 3.69, hemoglobin 11.7, hematocrit 34.9 and platelets 108. Sodium 139, potassium 4.3, chloride 102, carbon dioxide 32, anion gap 10, BUN 63, creatinine 1.3, GFR 40, POC glucose 127, random glucose 125 and calcium 9.7. Head CT showed stable age related neurodegenerative changes without definite acute findings by standard CT criteria. IMPRESSION AND PLAN: Chronic obstructive lung disease, suspected sleep apnea syndrome, cardiomyopathy with severe valvular heart disease, coronary artery disease, pulmonary hypertension, cryptogenic cirrhotic liver, portal thrombus, hypertension, history of lower extremity cellulitis, lymphedema, malnutrition, esophagitis, gastritis, duodenitis, vertebral fracture, degenerative joint disease, severe aortic stenosis, activities of daily living dysfunction, and altered mental status. We will order Psychiatry consult on this patient. Continue inhaled bronchodilators and sleep apnea precaution. The patient refused to use continuous positive airway pressure machine. Continue to encourage continuous positive airway pressure use and sequential compression devices to bilateral lower extremity for deep venous thrombosis. Head of bed elevated at 45 degrees. This patient was seen and examined with Dr. Cantor. Discussed assessment and plan as described above. Thank you for this consult. We will follow with you. Alec PrudeKATHY lane Pablo Cantor MD
--- NOTE | 2018-08-17 12:14 | RAD ---
Date of service: 08/17/2018 PROCEDURE: CHEST RADIOGRAPH, 1 VIEW HISTORY: reevaluation for congestion COMPARISON: 08/08/2018 FINDINGS: LUNGS: Clear. PLEURA: No pneumothorax or pleural fluid seen. CARDIOVASCULAR: No aortic atherosclerotic calcification present. Mild cardiomegaly OSSEOUS STRUCTURES: No significant abnormalities. VISUALIZED UPPER ABDOMEN: Normal. OTHER FINDINGS: None. IMPRESSION: No active disease.
--- NOTE | 2018-08-17 13:46 | CP.PCM.PN ---
Subjective - Date & Time of Evaluation Date of Evaluation: 08/17/18 Time of Evaluation: 13:45 - Subjective Subjective: RENAL Note s: seen and examined mental status had improved earlier after lactulose and ammonia level trended down she denies SOB. appears confused pe: vs as below. frail chronically ill appearing, debilitated gen: nad sclera: icteric op: clear neck: supple cv: +S1+s2 no rub lungs: cta ant abd: soft nt nd no organomegaly ext: no edema neuro: following command arousable psych: flat skin redness b/l lower extremities imp: hypokalemia/ chf / alkalosis/ anemia/hyponatremia/cirrhosis with portal HTN, hepatic enceph/severe with RV dysfunction/thrombocytopenia plan: k remains stable. supplement as needed CHF management as per cardio pt on lasix and aldactone pt not a candidate for samsca due to cirrhosis GI and cardiology following started lactulose avoids nsaids such as meloxicam, stopped due to recent rise in creat prognosis guarded Hyponatremia improved with IVF now stable Objective - Vital Signs/Intake and Output Vital Signs (last 24 hours): Temp Pulse Resp BP Pulse Ox 97.8 F 66 18 108/46 L 100 08/17/18 12:00 08/17/18 12:00 08/17/18 12:00 08/17/18 12:00 08/17/18 06:00 Intake and Output: 08/17/18 08/17/18 06:59 18:59 Intake Total 240 Output Total 2 Balance 238 - Medications Medications: Current Medications Acetaminophen (Tylenol 325mg Tab) 650 mg PO Q6H PRN PRN Reason: Pain, moderate (4-7) Last Admin: 08/15/18 08:29 Dose: 650 mg Calcium/Vitamin D (Oscal-D 250 Mg-125 Units Tab) 1 tab PO DAILY [facility] Last Admin: 08/17/18 09:53 Dose: 1 tab Furosemide (Lasix) 60 mg PO BID [facility] Last Admin: 08/17/18 09:52 Dose: 60 mg Cefepime HCl (Maxipime 1gm) 1 gm in 100 mls @ 100 mls/hr IVPB Q12 [facility]; Protocol Last Admin: 08/17/18 11:16 Dose: 100 mls/hr Insulin Human Regular (Humulin R Low) 0 units SC ACHS [facility]; Protocol Last Admin: 08/17/18 12:48 Dose: 2 u Lactulose (Enulose) 30 gm PO TID [facility] Last Admin: 08/17/18 09:52 Dose: 30 gm Levalbuterol HCl (Xopenex) 0.63 mg IH TIDRESP [facility] Last Admin: 08/17/18 08:03 Dose: 0.63 mg Lidocaine (Lidoderm) 1 ea TD DAILY [facility] Last Admin: 08/17/18 09:53 Dose: 1 ea Metoprolol Tartrate (Lopressor) 12.5 mg PO BID [facility] Last Admin: 08/17/18 09:51 Dose: 12.5 mg Sodium Chloride ([place] Nasal [place]) 0 ml NS TID PRN PRN Reason: Nasal congestion Last Admin: 08/12/18 09:14 Dose: 2 spr Spironolactone (Aldactone) 25 mg PO BID [facility] Last Admin: 08/17/18 09:51 Dose: 25 mg Ursodiol (Actigall) 300 mg PO BID [facility] Last Admin: 08/17/18 09:51 Dose: 300 mg - Labs Labs: 08/17/18 06:00 08/17/18 06:00 PT 13.5 SECONDS (9.4-12.5) H 08/09/18 07:35 INR 1.17 08/09/18 07:35 APTT 36.0 Seconds (25.1-36.5) 08/04/18 21:45
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
--- NOTE | 2018-08-17 23:08 | PN ---
DATE: 08/17/2018 SUBJECTIVE: The patient is a 78-year-old female. The patient was seen and examined at the bedside on 08/17/2018, looking comfortable, awake, but still confused eyes are open. No event overnight reported. No fever. No chills. No hematuria or hematochezia. No headache or dizziness. No chest pain. No palpitation. PHYSICAL EXAMINATION: VITAL SIGNS: Blood pressure 120/66, pulse 63, temperature 98.5, oxygen saturation 100% on room air. HEENT: Head: Normocephalic, atraumatic. Eyes: PERRLA. Extraocular muscles are intact. Conjunctivae are clear. Nose patent. Mucous membranes moist. NECK: Supple. No carotid bruit. No JVD or thyromegaly. CHEST: Bilaterally symmetrical. HEART: S1 and S2, positive. LUNGS: Clear to auscultation. ABDOMEN: Soft, nontender. No organomegaly. EXTREMITIES: No bilateral lower extremity edema. NEUROLOGICAL: The patient is awake, but is not able to follow the commands. MEDICATIONS: Tylenol, cefepime, Lasix, insulin, lactulose, Xopenex, metoprolol, sodium chloride nasal spray, spironolactone, ursodiol. LABORATORY DATA: White blood cells 6.5, hemoglobin 11.7, hematocrit 34.9. Sodium 139, potassium 4.3, BUN 63, creatinine 1.3. CAT scan of the head showed stable age-related neurodegenerative changes. ASSESSMENT AND PLAN: Ms. Maria D Sullivan is a 78-year-old lady with anemia, thrombocytopenia, diabetes mellitus, chronic obstructive lung disease, sleep apnea syndrome, cardiomyopathy, coronary artery disease, pulmonary hypertension, cryptogenic cirrhotic liver, portal thrombosis, hypertension, history of cellulitis of the lower extremities, lymphedema, malnutrition, esophagitis, gastritis, duodenitis, vertebral fracture, degenerative joint disease, severe aortic stenosis, refused cardiac surgery, is not able to do her activities of daily living, altered mental status, renal insufficiency. Ammonia level is 96, actually is going up. Last ammonia level on 08/16/2018 was 79. Infectious Disease is on the case. [place]all[place] Shucker is on the case. Gastrointestinal and deep venous thrombosis prophylaxis. Repeat labs. We will follow up. Kristin Rg MD [facility] # [id number] ARACELI
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
[2018-08-18] MEDS: Levalbuterol 0.63 MG/3 ML Inhal Soln UD IH SCH ×3 (08:10→20:11)
[2018-08-18] MEDS: Calcium-Vit D 250 mg-125 Units Tab UD PO SCH (10:03)
[2018-08-18] MEDS: Insulin Reg-LOW-Coverage SC SCH ×4 (10:08→21:53)
[2018-08-18] MEDS: Cefepime 1gm in NS 100ml 1 GM/100 ML BAG IVPB SCH ×2 (10:08→21:32)
[2018-08-18] MEDS: Lidocaine 5% Patch TD SCH (10:19)
--- NOTE | 2018-08-18 10:53 | CP.PCM.PN ---
Subjective - Date & Time of Evaluation Date of Evaluation: 08/18/18 Time of Evaluation: 10:52 - Subjective Subjective: RENAL Note s: seen and examined mental status had improved earlier after lactulose and ammonia level trended down she denies SOB. appears confused but more awake alert pe: vs as below. frail chronically ill appearing, debilitated gen: nad sclera: icteric op: clear neck: supple cv: +S1+s2 no rub lungs: cta ant abd: soft nt nd no organomegaly ext: no edema neuro: following command awake alert psych: flat skin redness b/l lower extremities imp: hypokalemia/ chf / alkalosis/ anemia/hyponatremia/cirrhosis with portal HTN, hepatic enceph/severe with RV dysfunction/thrombocytopenia plan: k remains stable. supplement as needed CHF management as per cardio pt on lasix and aldactone pt not a candidate for samsca due to cirrhosis GI and cardiology following started lactulose avoids nsaids such as meloxicam, stopped due to recent rise in creat prognosis guarded Hyponatremia improved with IVF now stable Objective - Vital Signs/Intake and Output Vital Signs (last 24 hours): Temp Pulse Resp BP Pulse Ox 97.8 F 80 20 130/60 100 08/18/18 06:00 08/18/18 06:00 08/18/18 06:00 08/18/18 10:03 08/18/18 06:00 Intake and Output: 08/18/18 08/18/18 06:59 18:59 Intake Total 300 Balance 300 - Medications Medications: Current Medications Acetaminophen (Tylenol 325mg Tab) 650 mg PO Q6H PRN PRN Reason: Pain, moderate (4-7) Last Admin: 08/15/18 08:29 Dose: 650 mg Calcium/Vitamin D (Oscal-D 250 Mg-125 Units Tab) 1 tab PO DAILY [facility] Last Admin: 08/18/18 10:03 Dose: 1 tab Furosemide (Lasix) 60 mg PO BID [facility] Last Admin: 08/18/18 10:03 Dose: 60 mg Cefepime HCl (Maxipime 1gm) 1 gm in 100 mls @ 100 mls/hr IVPB Q12 [facility]; Protocol Last Admin: 08/18/18 10:08 Dose: 100 mls/hr Insulin Human Regular (Humulin R Low) 0 units SC ACHS [facility]; Protocol Last Admin: 08/18/18 10:08 Dose: Not Given Lactulose (Enulose) 30 gm PO TID [facility] Last Admin: 08/18/18 10:04 Dose: 30 gm Levalbuterol HCl (Xopenex) 0.63 mg IH TIDRESP [facility] Last Admin: 08/18/18 08:10 Dose: 0.63 mg Lidocaine (Lidoderm) 1 ea TD DAILY [facility] Last Admin: 08/18/18 10:19 Dose: 1 ea Metoprolol Tartrate (Lopressor) 12.5 mg PO BID [facility] Last Admin: 08/18/18 10:04 Dose: 12.5 mg Sodium Chloride ([place] Nasal [place]) 0 ml NS TID PRN PRN Reason: Nasal congestion Last Admin: 08/12/18 09:14 Dose: 2 spr Spironolactone (Aldactone) 25 mg PO BID [facility] Last Admin: 08/18/18 10:04 Dose: 25 mg Ursodiol (Actigall) 300 mg PO BID [facility] Last Admin: 08/18/18 10:03 Dose: 300 mg - Labs Labs: 08/17/18 06:00 08/17/18 06:00 PT 13.5 SECONDS (9.4-12.5) H 08/09/18 07:35 INR 1.17 08/09/18 07:35 APTT 36.0 Seconds (25.1-36.5) 08/04/18 21:45
[2018-08-18] MEDS ORDERED: Haloperidol Lactate 2 mg/ml Liquid PO PRN (11:41)
--- NOTE | 2018-08-18 15:13 | CON ---
DATE: 08/18/2018 HISTORY OF PRESENT ILLNESS: The patient is a 78-year-old female with no formal prior psychiatric history except for consultations by psychiatry in 04/2016 and 03/2017 for depression. At that time, the patient was treated with supportive therapy as she declined having starting any psychotropic medications. The patient is incoherent and well oriented. During these interviews, there was no acute concerns in regard to her mental health at that time. This time, psychiatry was called to evaluate the patient due to altered mental status; however, review of recent medical notes indicate the patient has numerous medical issues including diabetes, COPD, hypertension, CHF, aortic stenosis, coronary artery disease, cirrhosis, UTI, anemia, and recently treated for cellulitis in July (please refer to medical notes for comprehensive list of the patient's medical issues). This patient also was noted to have elevated ammonia level from the unit. The patient with multiple different etiologies for delirium which could be contributing to her altered mental status at this time. In regards to altered mental status, it did appeared that the patient has been confused, disoriented, incoherent at times and calling out and not making sense. I met with her at bedside and she does not appear to be enthusiastic about having a psychiatric consultations for her. She indicates that she has stomach pain and would like to have that addressed. She is aware that she is in [facility]. She has trouble providing the correct month and year. She first guessed it is April then May and then she as 1928. She is adamant that she is not depressed, paranoid, or hallucinating. She is adamant that she does not want to . The patient appears to be somewhat aware of her disorientation, however. She knew that she is in the correct month. She does not appear to be acutely hallucinating. Her thought process is difficult to cover adequate questions because of inconsistence focus and comprehension. All in all her presentation is very consistent with delirium. Her insight and judgment are poor. Vital signs and labs reviewed. Ammonia levels are 96 today. RELEVANT PSYCHIATRIC MEDICATIONS: The patient is not on any relevant psychiatric medications at this time as she has no former psychiatric history and has deferred no psychotropic medications in the past. PAST PSYCHIATRIC HISTORY: The patient did not have any prior psychiatric history. She had brief med trials of Lexapro in the past; however, the patient does not like the way that medication make her feel. She denies any suicide attempts or hospitalizations. Her account it is consistent with Dr. Tracey's consultations from 2016 and 2017. SOCIAL HISTORY: The patient is . She has 4 sons who are police officers. Generally she lives by herself independently in an apartment. IMPRESSION: Delirium, rule out contribution of age related cognitive decline, as well as dementia. RECOMMENDATIONS: At this time, the patient is suffering from delirium and psychiatric treat behavioral disturbances related to this medical condition. I will implement Haldol 0.25 mg every 6 hours as needed and in case of agitation and psychiatric will sign off at this time. Please re-consult as needed if there are any acute psychiatric issues. Marcelo Oreilly MD
--- NOTE | 2018-08-18 16:20 | PN ---
DATE: 08/18/2018 LOCATION: The patient is in room 268, bed 1. Detailed note has been already written by Korey Lipscomb, this is an additional note. SUBJECTIVE: The patient's clinical condition is the same, not in any acute respiratory distress and will continue present therapy at the moment including Lopressor, Aldactone, Lasix, and we will follow with you. Pablo Shah MD
--- NOTE | 2018-08-18 16:41 | PN ---
DATE: 08/18/2018 PULMONARY PROGRESS NOTE REFERRING PHYSICIAN: Kristin Rg MD SUBJECTIVE: The patient is sitting up in bed in no acute distress. No overnight events reported. No headache, rhinitis, cough, shortness of breath, chest pain, abdominal pain, nausea, vomiting, diarrhea, leg pain, or leg swelling reported. OBJECTIVE: GENERAL: No acute distress. VITAL SIGNS: Blood pressure 110/49, pulse 72, temperature 98, and oxygen saturation 98%. HEENT: Moist mucous membranes. Crowded airway. NECK: Supple. No JVD. LUNGS: Decreased breath sounds at the bases. CARDIOVASCULAR: S1 and S2 audible. Positive murmur. ABDOMEN: Soft. No distension. No organomegaly. EXTREMITIES: No bilateral lower extremity edema. NEUROLOGIC: Awake, alert, verbally responsive. Follows commands. Noticed repeatedly repeating phrases. MEDICATIONS: Reviewed. Tylenol 650 every 6 hours p.r.n. moderate pain, Os-Cristo one tab daily, cefepime 1 g every 12 hours, Lasix 60 mg twice a day, Humulin R sliding scale a.c. and h.s., lactulose 30 g three times a day, Xopenex 0.63 mg inhalation three times a day, Lidoderm patch topically daily to affected area, metoprolol tartrate 12.5 mg twice a day, sodium chloride nasal spray three times a day p.r.n., Aldactone 25 mg twice a day, Ursodiol 300 mg twice a day. LABORATORY DATA: Reviewed. POC glucose 221. DIAGNOSTIC DATA: Chest x-ray shows no active disease. IMPRESSION AND PLAN: Chronic obstructive lung disease, obstructive sleep apnea syndrome, cardiomyopathy with severe valvular heart disease, coronary artery disease, pulmonary hypertension, cryptogenic psoriatic liver, portal thrombus, hypertension, history of lower extremity cellulitis, lymphedema, malnutrition, esophagitis, gastritis, duodenitis, vertebral fracture, degenerative joint disease, severe aortic stenosis, activities of daily living dysfunction, altered mental status. We will continue inhaled bronchodilators, sleep apnea precaution. Continued to encourage continuous positive airway pressure use at bedtime. Head of bed elevated at 45 degrees. Continue SCDs to bilateral lower extremities for deep venous thrombosis prophylaxis. The patient was seen and examined with Dr. Cantor. Discussed assessment and plan as described above. Thank you for this consult. We will follow with you. Alec Marie APN Pablo Cantor MD [facility] # [id number]
--- NOTE | 2018-08-18 21:41 | PN ---
DATE: 08/18/2018 SUBJECTIVE: The patient is in bed, in no acute distress, nontoxic. PHYSICAL EXAMINATION: VITAL SIGNS: Temperature is 98, blood pressure is 110/40, respiratory rate of 18, heart rate of 72. HEENT: Unremarkable. NECK: Supple. LUNGS: Decreased breath sounds. HEART: Normal S1, S2. ABDOMEN: Soft. LABORATORY DATA: Examination reveals a white count of 11,000. Chemistries are noted. Urinalysis is reviewed. Microbiology reveals Proteus from July; urine culture, review of orders, and review of the patient to be on cefepime day #3. ASSESSMENT AND PLAN: A 78-year-old female, who was seen earlier today in room 268, bed 1 with asymptomatic bacteriuria, left leg cellulitis, chronic lymphedema, and day #3 of cefepime for new urinalysis and questionable change of mental status, awaiting for the repeat urine culture. We will complete a short course of cefepime; today is day #3 of 5 to 7 days. We will request another urine culture and urinalysis. Abram Benitez MD
[2018-08-18 23:59] LABS: URINE BILIRUBIN SMALL (NEGATIVE); URINE BLOOD NEGATIVE (NEGATIVE); URINE GLUCOSE (UA) NEGATIVE (NEGATIVE); URINE LEUKOCYTE ESTERASE NEGATIVE Leu/uL (NEGATIVE); URINE PROTEIN 30 mg/dL (<30 mg/dL)
[2018-08-19 00:03] LABS: URINE APPEARANCE SL CLOUDY (CLEAR); URINE COLOR YELLOW (YELLOW)
[2018-08-19 00:14] LABS: URINE AMORPHOUS SEDIMENT MODERATE /hpf; URINE BACTERIA FEW /hpf; URINE RBC 0 - 2 /hpf (0-2); URINE WBC 0 - 2 /hpf (0-6)
[2018-08-19] MEDS ORDERED: DiphenhydrAMINE 50 mg/ml Inj IVP STA (01:04)
[2018-08-19 07:18] LABS: MEAN CELL VOLUME 95.1 fl (80.0-105.0); MEAN CORPUSCULAR HEMOGLOBIN 31.8 pg (25.0-35.0); MEAN CORPUSCULAR HGB CONC 33.4 g/dl (31.0-37.0); MEAN PLATELET VOLUME 9.2 fl (7.0-11.0); RBC 3.46 10^6/uL (3.5-6.1); RED CELL DISTRIBUTION WIDTH 16.9 % (11.5-14.5); WHITE BLOOD COUNT 5.2 10^3/uL (4.5-11.0)
[2018-08-19] MEDS: Insulin Reg-LOW-Coverage SC SCH ×4 (07:53→22:00)
[2018-08-19] MEDS: Levalbuterol 0.63 MG/3 ML Inhal Soln UD IH SCH ×4 (07:55→19:08)
[2018-08-19 08:19] LABS: BLOOD UREA NITROGEN 46 mg/dL (7-21); CALCIUM 9.3 mg/dL (8.4-10.5); GFR NON-AFRICAN AMERICAN > 60
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
--- NOTE | 2018-08-19 09:12 | PN ---
DATE: 08/19/2018 PULMONARY PROGRESS NOTE REFERRING PHYSICIAN: Kristin Rg MD SUBJECTIVE: The patient is lying in bed. Head of bed elevated. No overnight events reported. The patient did not use CPAP machine last night. The patient reports some abdominal discomfort. No headache, rhinitis, chest pain, cough, shortness of breath, nausea, vomiting, diarrhea, leg pain or leg swelling reported. OBJECTIVE GENERAL: No acute distress. VITAL SIGNS: Blood pressure 104/45, pulse 73, temperature 98.2 and oxygen saturation 93%. HEENT: Moist mucous membrane. Crowded airway. NECK: Supple. No JVD. LUNGS: Decreased breath sounds at the bases. CARDIOVASCULAR: S1 and S2, audible. Positive murmur. ABDOMEN: Soft. No distention. No organomegaly. No pain illicited on palpation EXTREMITIES: No bilateral lower extremity edema. NEUROLOGIC: Awake, alert, and verbally responsive. Follows commands. MEDICATIONS: Reviewed; Tylenol 650 every 6 hours p.r.n., Os-Cristo one tab daily, cefepime 1 g every 12 hours, Lasix 40 mg twice a day, Humulin R sliding scale a.c. and at bedtime, lactulose 30 g three times a day, Xopenex 0.63 mg inhalation three times a day, lidocaine patch topically daily, metoprolol tartrate 12.5 mg twice a day, ocean nasal spray three times a day p.r.n., spironolactone 25 mg twice a day and Ursodiol 300 mg twice a day. LABORATORY DATA: Reviewed. WBC 5.2, RBC 3.49, hemoglobin 11, hematocrit 32.9 and platelets 109. Sodium 132, potassium 4.8, chloride 99, carbon dioxide 33, anion gap 5, BUN 46, creatinine 0.7, GFR greater than 60, POC glucose 150, random glucose 106, calcium 9.3 and ammonia less than 9. Urinalysis; urine protein 30, urine bilirubin small and urine urobilinogen 4. IMPRESSION AND PLAN: Chronic obstructive lung disease, obstructive sleep apnea syndrome, cardiomyopathy with severe valvular heart disease, coronary artery disease, pulmonary hypertension, cryptogenic cirrhotic liver, portal thrombus, hypertension, history of lower extremity cellulitis, lymphedema, malnutrition, esophagitis, gastritis, duodenitis, vertebral fracture, severe aortic stenosis, degenerative joint disease, activities of daily living dysfunction, altered mental status. We will continue inhaled bronchodilators, sleep apnea precaution. Continued to encourage continuous positive airway pressure use at bedtime. Head of bed elevated at 45 degrees. Continue sequential compression devices to bilateral lower extremities for deep venous thrombosis prophylaxis. We will add Pepcid 20 mg daily for stomach discomfort. This patient does have history of esophagitis, gastritis and duodenitis. The patient was on Protonix, which was discontinued. This patient was seen and examined with Dr. Cantor. Discussed assessment and plan as described above. Thank you for this consult and we will follow with you. Alec Marie APN Pablo Cantor MD [facility]
[2018-08-19] MEDS: Cefepime 1gm in NS 100ml 1 GM/100 ML BAG IVPB SCH ×2 (09:40→21:09)
[2018-08-19] MEDS: Lidocaine 5% Patch TD SCH (09:41)
[2018-08-19] MEDS: Calcium-Vit D 250 mg-125 Units Tab UD PO SCH (09:41)
--- NOTE | 2018-08-19 10:51 | PN ---
DATE: 08/19/2018 SUBJECTIVE: The patient is in bed in no acute distress, nontoxic. PHYSICAL EXAMINATION: VITAL SIGNS: Temperature is 98, blood pressure is 105/40, respiratory rate of 18. HEENT: Unremarkable. NECK: Supple. LUNGS: Have decreased breath sounds. HEART: Normal S1, S2. ABDOMEN: Soft, nontender. LABORATORY EXAMINATION: Reveals the patient to have white count of 5.2. Chemistries are noted. Microbiology is reviewed. Review of orders reveals the patient to be on cefepime. ASSESSMENT AND PLAN: This is a 78-year-old female who was seen earlier today with asymptomatic bacteriuria, left leg cellulitis. The patient had a positive urinalysis and day #4 of cefepime with a change in mental status, would complete 5-7 days, today is day #4. We will check on the repeat urinalysis and urine culture. Abram Benitez MD
--- NOTE | 2018-08-19 12:45 | CP.PCM.PN ---
Subjective - Date & Time of Evaluation Date of Evaluation: 08/19/18 Time of Evaluation: 12:45 - Subjective Subjective: RENAL Note s: seen and examined mental status had improved earlier after lactulose and ammonia level trended down she denies SOB. appears confused but more awake alert pe: vs as below. frail chronically ill appearing, debilitated gen: nad sclera: icteric op: clear neck: supple cv: +S1+s2 no rub lungs: cta ant abd: soft nt nd no organomegaly ext: no edema neuro: following command awake alert psych: flat skin redness b/l lower extremities imp: hypokalemia/ chf / alkalosis/ anemia/hyponatremia/cirrhosis with portal HTN, hepatic enceph/severe with RV dysfunction/thrombocytopenia plan: k remains stable. supplement as needed CHF management as per cardio pt on lasix and aldactone pt not a candidate for samsca due to cirrhosis GI and cardiology following started lactulose avoids nsaids such as meloxicam, stopped due to recent rise in creat prognosis guarded Hyponatremia improved with IVF now stable on diuretics Objective - Vital Signs/Intake and Output Vital Signs (last 24 hours): Temp Pulse Resp BP Pulse Ox 98.2 F 83 19 104/48 L 99 08/19/18 06:00 08/19/18 10:00 08/19/18 06:00 08/19/18 09:41 08/19/18 06:00 Intake and Output: 08/19/18 08/19/18 06:59 18:59 Intake Total 120 Output Total 4 4 Balance 116 -4 - Medications Medications: Current Medications Acetaminophen (Tylenol 325mg Tab) 650 mg PO Q6H PRN PRN Reason: Pain, moderate (4-7) Last Admin: 08/19/18 09:44 Dose: 650 mg Calcium/Vitamin D (Oscal-D 250 Mg-125 Units Tab) 1 tab PO DAILY [facility] Last Admin: 08/19/18 09:41 Dose: 1 tab Famotidine (Pepcid) 20 mg PO DAILY [facility] Last Admin: 08/19/18 09:42 Dose: 20 mg Furosemide (Lasix) 40 mg PO BID [facility] Last Admin: 08/19/18 09:41 Dose: 40 mg Cefepime HCl (Maxipime 1gm) 1 gm in 100 mls @ 100 mls/hr IVPB Q12 [facility]; Protocol Last Admin: 08/19/18 09:40 Dose: 100 mls/hr Insulin Human Regular (Humulin R Low) 0 units SC ACHS [facility]; Protocol Last Admin: 08/19/18 07:53 Dose: Not Given Lactulose (Enulose) 30 gm PO TID [facility] Last Admin: 08/19/18 09:40 Dose: 30 gm Levalbuterol HCl (Xopenex) 0.63 mg IH TIDRESP [facility] Last Admin: 08/19/18 07:55 Dose: 0.63 mg Lidocaine (Lidoderm) 1 ea TD DAILY [facility] Last Admin: 08/19/18 09:41 Dose: 1 ea Metoprolol Tartrate (Lopressor) 12.5 mg PO BID [facility] Last Admin: 08/19/18 09:41 Dose: 12.5 mg Sodium Chloride ([place] Nasal [place]) 0 ml NS TID PRN PRN Reason: Nasal congestion Last Admin: 08/12/18 09:14 Dose: 2 spr Spironolactone (Aldactone) 25 mg PO BID [facility] Last Admin: 08/19/18 09:41 Dose: 25 mg Ursodiol (Actigall) 300 mg PO BID [facility] Last Admin: 08/19/18 09:41 Dose: 300 mg - Labs Labs: 08/19/18 07:00 08/19/18 07:00 PT 13.5 SECONDS (9.4-12.5) H 08/09/18 07:35 INR 1.17 08/09/18 07:35 APTT 36.0 Seconds (25.1-36.5) 08/04/18 21:45
--- NOTE | 2018-08-19 17:37 | CT ---
Date of service: 08/19/2018 PROCEDURE: CT Abdomen and Pelvis without intravenous contrast HISTORY: Abdominal pain. COMPARISON: 08/05/2018. CT abdomen and pelvis. 08/05/2018 MR abdomen TECHNIQUE: Unenhanced. Neither IV nor oral contrast administered Radiation dose: Total exam DLP = 446.46 mGy-cm. This CT exam was performed using one or more of the following dose reduction techniques: Automated exposure control, adjustment of the mA and/or kV according to patient size, and/or use of iterative reconstruction technique. FINDINGS: LOWER THORAX: Small left pleural effusion, a new finding. Adjacent consolidative change. LIVER: Cirrhotic liver, unchanged. GALLBLADDER AND BILE DUCTS: No significant interval change compared to the prior examination(s). PANCREAS: Unremarkable. No gross lesion or ductal dilatation. SPLEEN: Unremarkable. ADRENALS: Unremarkable. No mass. KIDNEYS AND URETERS: Unremarkable. No hydronephrosis. No solid mass. VASCULATURE: Atherosclerotic calcification and mural plaque present. Findings are seen throughout the aorta which is non aneurysmal. BOWEL: Unremarkable. No obstruction. No gross mural thickening. APPENDIX: No abnormalities to suggest acute appendicitis. No right lower quadrant inflammatory processes identified. PERITONEUM: Unremarkable. No free fluid. No free air. LYMPH NODES: Unremarkable. No enlarged lymph nodes. BLADDER: Unremarkable. REPRODUCTIVE: Unremarkable. BONES: No acute fracture. No change. Multiple compression deformities. Diffuse osteopenia. Old left pelvic ring fracture. OTHER FINDINGS: None. IMPRESSION: No acute findings related to/ accounting for the clinical presentation. Limitations of the current examination: Absence of oral and intravenous contrast preclude assessment of abdominal pelvic viscera and bowel.
--- NOTE | 2018-08-19 19:20 | PN ---
DATE: 08/19/2018 ADDITIONAL PROGRESS NOTE LOCATION: The patient is in room 272, bed 1. Detailed progress note has been written by Deisi Nair. This is an additional note to that. SUBJECTIVE: The patient is still very confused. Lying flat in bed without any respiratory distress. The patient's lungs are clear. PHYSICAL EXAMINATION CARDIOPULMONARY: S1, S2. Ejection systolic murmur. ABDOMEN: Bowel sounds normal and soft. EXTREMITIES: No clubbing. No cyanosis. The patient's ammonia level have come down from 96 to 9, which is better. We will continue Actigall 300 mg b.i.d., spironolactone 25 b.i.d., lactulose 30 mg p.o. t.i.d., furosemide 40 b.i.d., metoprolol 12.5 b.i.d., Pepcid 20 mg p.o. daily and Xopenex hand nebulizer therapy. We will continue to follow closely. Pablo Shah MD
--- NOTE | 2018-08-19 19:36 | CP.PCM.PN ---
Subjective - Date & Time of Evaluation Date of Evaluation: 08/18/18 Time of Evaluation: 21:00 - Subjective Subjective: Patient remains disoriented ROS: unable to assess Pain: no apparent pain Objective - Vital Signs/Intake and Output Vital Signs (last 24 hours): Temp Pulse Resp BP Pulse Ox 98.3 F 68 20 107/47 L 100 08/19/18 17:53 08/19/18 18:00 08/19/18 17:53 08/19/18 17:53 08/19/18 17:53 Intake and Output: 08/19/18 08/20/18 18:59 06:59 Intake Total 0 1600 Output Total 4 6 Balance -4 1594 - Medications Medications: Current Medications Acetaminophen (Tylenol 325mg Tab) 650 mg PO Q6H PRN PRN Reason: Pain, moderate (4-7) Last Admin: 08/19/18 09:44 Dose: 650 mg Calcium/Vitamin D (Oscal-D 250 Mg-125 Units Tab) 1 tab PO DAILY [facility] Last Admin: 08/19/18 09:41 Dose: 1 tab Famotidine (Pepcid) 20 mg PO DAILY [facility] Last Admin: 08/19/18 09:42 Dose: 20 mg Furosemide (Lasix) 40 mg PO BID [facility] Last Admin: 08/19/18 17:24 Dose: 40 mg Cefepime HCl (Maxipime 1gm) 1 gm in 100 mls @ 100 mls/hr IVPB Q12 [facility]; Protocol Last Admin: 08/19/18 09:40 Dose: 100 mls/hr Insulin Human Regular (Humulin R Low) 0 units SC ACHS [facility]; Protocol Last Admin: 08/19/18 17:23 Dose: Not Given Lactulose (Enulose) 30 gm PO TID [facility] Last Admin: 08/19/18 17:22 Dose: 30 gm Levalbuterol HCl (Xopenex) 0.63 mg IH TIDRESP [facility] Last Admin: 08/19/18 19:08 Dose: Not Given Lidocaine (Lidoderm) 1 ea TD DAILY [facility] Last Admin: 08/19/18 09:41 Dose: 1 ea Metoprolol Tartrate (Lopressor) 12.5 mg PO BID [facility] Last Admin: 08/19/18 17:24 Dose: 12.5 mg Sodium Chloride ([place] Nasal [place]) 0 ml NS TID PRN PRN Reason: Nasal congestion Last Admin: 08/12/18 09:14 Dose: 2 spr Spironolactone (Aldactone) 25 mg PO BID [facility] Last Admin: 08/19/18 17:22 Dose: 25 mg Ursodiol (Actigall) 300 mg PO BID [facility] Last Admin: 08/19/18 17:22 Dose: 300 mg - Labs Labs: 08/19/18 07:00 08/19/18 07:00 PT 13.5 SECONDS (9.4-12.5) H 08/09/18 07:35 INR 1.17 08/09/18 07:35 APTT 36.0 Seconds (25.1-36.5) 08/04/18 21:45 - Constitutional Appears: Non-toxic, Confused - Head Exam Head Exam: ATRAUMATIC, NORMAL INSPECTION, NORMOCEPHALIC - Respiratory Exam Respiratory Exam: Clear to Ausculation Bilateral, NORMAL BREATHING PATTERN - Cardiovascular Exam Cardiovascular Exam: REGULAR RHYTHM, +S1, +S2. absent: Murmur - GI/Abdominal Exam GI & Abdominal Exam: Soft, Normal Bowel Sounds. absent: Tenderness - Extremities Exam Extremities Exam: Full ROM, Normal Capillary Refill, Normal Inspection. absent: Joint Swelling, Pedal Edema Assessment and Plan - Assessment and Plan (Free Text) Assessment: Mr. Killian nik 78 y/o woman with pmhx significant for cryptogenic cirhosis, DM, COPD, dementia; CHF; admitted with generalized fatigue, hypokalemia and LE celullitis infection. Hematology consulted regarding thromboctyopenia. Ddx likely secondary to cirrhosis vs sepsis physiology. Plts stable/improving as infection is being treated. Will continue to observe for now. Lambert Peña MD Hematology
--- NOTE | 2018-08-19 19:37 | CP.PCM.PN ---
Subjective - Date & Time of Evaluation Date of Evaluation: 08/19/18 Time of Evaluation: 20:00 - Subjective Subjective: Remains confused. Intermittently tearful about being left alone. Pain: denies ROS: unable to assess Objective - Vital Signs/Intake and Output Vital Signs (last 24 hours): Temp Pulse Resp BP Pulse Ox 98.3 F 68 20 107/47 L 100 08/19/18 17:53 08/19/18 18:00 08/19/18 17:53 08/19/18 17:53 08/19/18 17:53 Intake and Output: 08/19/18 08/20/18 18:59 06:59 Intake Total 0 1600 Output Total 4 6 Balance -4 1594 - Medications Medications: Current Medications Acetaminophen (Tylenol 325mg Tab) 650 mg PO Q6H PRN PRN Reason: Pain, moderate (4-7) Last Admin: 08/19/18 09:44 Dose: 650 mg Calcium/Vitamin D (Oscal-D 250 Mg-125 Units Tab) 1 tab PO DAILY [facility] Last Admin: 08/19/18 09:41 Dose: 1 tab Famotidine (Pepcid) 20 mg PO DAILY [facility] Last Admin: 08/19/18 09:42 Dose: 20 mg Furosemide (Lasix) 40 mg PO BID [facility] Last Admin: 08/19/18 17:24 Dose: 40 mg Cefepime HCl (Maxipime 1gm) 1 gm in 100 mls @ 100 mls/hr IVPB Q12 [facility]; Protocol Last Admin: 08/19/18 09:40 Dose: 100 mls/hr Insulin Human Regular (Humulin R Low) 0 units SC ACHS [facility]; Protocol Last Admin: 08/19/18 17:23 Dose: Not Given Lactulose (Enulose) 30 gm PO TID [facility] Last Admin: 08/19/18 17:22 Dose: 30 gm Levalbuterol HCl (Xopenex) 0.63 mg IH TIDRESP [facility] Last Admin: 08/19/18 19:08 Dose: Not Given Lidocaine (Lidoderm) 1 ea TD DAILY [facility] Last Admin: 08/19/18 09:41 Dose: 1 ea Metoprolol Tartrate (Lopressor) 12.5 mg PO BID [facility] Last Admin: 08/19/18 17:24 Dose: 12.5 mg Sodium Chloride ([place] Nasal [place]) 0 ml NS TID PRN PRN Reason: Nasal congestion Last Admin: 08/12/18 09:14 Dose: 2 spr Spironolactone (Aldactone) 25 mg PO BID [facility] Last Admin: 08/19/18 17:22 Dose: 25 mg Ursodiol (Actigall) 300 mg PO BID [facility] Last Admin: 08/19/18 17:22 Dose: 300 mg - Labs Labs: 08/19/18 07:00 08/19/18 07:00 PT 13.5 SECONDS (9.4-12.5) H 08/09/18 07:35 INR 1.17 08/09/18 07:35 APTT 36.0 Seconds (25.1-36.5) 08/04/18 21:45 - Constitutional Appears: Non-toxic, Confused - Respiratory Exam Respiratory Exam: Clear to Ausculation Bilateral, NORMAL BREATHING PATTERN - Cardiovascular Exam Cardiovascular Exam: REGULAR RHYTHM, +S1, +S2. absent: Murmur - GI/Abdominal Exam GI & Abdominal Exam: Soft, Normal Bowel Sounds. absent: Tenderness - Extremities Exam Extremities Exam: Full ROM, Normal Capillary Refill, Normal Inspection. absent: Joint Swelling, Pedal Edema Assessment and Plan - Assessment and Plan (Free Text) Assessment: Mr. Killian nik 78 y/o woman with pmhx significant for cryptogenic cirhosis, DM, COPD, dementia; CHF; admitted with generalized fatigue, hypokalemia and LE c elullitis infection. Hematology consulted regarding thromboctyopenia. Ddx likely secondary to cirrhosis vs sepsis physiology. Plts stable/improving as infection is being treated. Will continue to observe for now. Lambert Peña MD Hematology
--- NOTE | 2018-08-20 01:48 | PN ---
DATE: 08/19/2018 SUBJECTIVE: Patient is a 78-year-old female. Patient was seen and examined at the bedside on 08/19/2018. Looks a little bit better, more awake and alert. Complaining about abdominal pain. No headaches. No rhinitis. No chest pain. No shortness of breath, nausea, vomiting, or diarrhea. No hematuria. No hematochezia. PHYSICAL EXAMINATION: VITAL SIGNS: Blood pressure 104/45, pulse 73, temperature 98.2, and oxygenation 93% HEENT: Head is normocephalic and atraumatic. Eyes; PERRLA. Extraocular muscles intact. Conjunctivae clear. Nose patent. Mucous membranes moist. NECK: Supple. No carotid bruit. No JVD or thyromegaly. CHEST: Bilateral symmetrical. HEART: S1 and S2 positive. LUNGS: Clear to auscultation. ABDOMEN: Soft. Bowel sounds present. No organomegaly. EXTREMITIES: Bilateral lower extremity edema, but getting better. NEUROLOGIC: Awake, alert, verbally responsive. Follows simple commands. Oriented x3. MEDICATIONS: Tylenol, Os-Cristo, cefepime, Lasix, insulin, Xopenex, Lidocaine, metoprolol, spironolactone, and ursodiol. LABORATORY DATA: White blood cell 5.0, hemoglobin 11, hematocrit 32.9, platelets , Sodium and potassium 4.8, BUN 46, creatinine 0.7, and calcium 9.3. ASSESSMENT AND PLAN: Ms. Killian is a 78-year-old lady with multiple medical problem, anemia status post blood transfusion, thrombocytopenia, renal insufficiency, diabetes mellitus, chronic obstructive lung disease, sleep apnea syndrome, cardiomyopathy, history of valvular heart disease, coronary artery disease, pulmonary hypertension, cryptogenic cirrhosis of liver, ammonia level is high but trending down, portal thrombosis, hypertension, history of lower extremity cellulitis, lymphedema, malnutrition, esophagitis, gastritis, duodenitis, vertebral fracture, severe aortic stenosis, and degenerative joint disease. She is not able to do her activities of daily living. Altered mental status, hepatic encephalopathy, now getting lactulose, improving very slowly. Length of time discussion done with the patient's son, Timothy. All questions answered. CAT scan of the abdomen and pelvis was reviewed by me. Repeat labs. Ammonia level is dropping a lot. Today, it is less than 19 used to be 96. We will follow up. Kristin Rg MD [facility]
[2018-08-20] MEDS: Levalbuterol 0.63 MG/3 ML Inhal Soln UD IH SCH ×3 (07:39→20:14)
[2018-08-20] MEDS: Insulin Reg-LOW-Coverage SC SCH ×4 (08:13→21:40)
[2018-08-20] MEDS: Calcium-Vit D 250 mg-125 Units Tab UD PO SCH (09:06)
--- NOTE | 2018-08-20 09:23 | PN ---
DATE: 08/18/2018 SUBJECTIVE: The patient is 78-year-old female. The patient was seen and examined at bedside, 08/18/2018, looking comfortable, awake, more alert, oriented x2. No fever. No chills. No nausea, vomiting, or diarrhea. No headache. No dizziness. No chest pain. No palpitation. PHYSICAL EXAMINATION: VITAL SIGNS: Blood pressure 110/40, pulse 72, respiratory rate is 18, temperature 98.2, and oxygenation 98%. HEENT: Head: Normocephalic and atraumatic. Eyes: PERRLA. Extraocular muscles intact. Conjunctivae clear. Nose is patent. Mucous membranes moist. NECK: Supple. No carotid bruit. No JVD or thyromegaly. CHEST: Bilaterally symmetrical. HEART: S1 and S2 positive. LUNGS: Clear to auscultation. ABDOMEN: Soft. Bowel sounds present. No organomegaly. EXTREMITIES: No edema. No cyanosis. NEUROLOGICAL: The patient is awake and alert, more responsive, follows simple commands. MEDICATIONS: Tylenol, Os-Cristo, cefepime, Lasix, insulin, lactulose, Xopenex, Lidoderm, metoprolol, normal saline, and Ursodiol. LABORATORY DATA: Ammonia level is 31. On 08/17/2018, it was 96. Otherwise, we do not have new labs. I reviewed old labs. ASSESSMENT AND PLAN: The patient is with renal insufficiency, diabetes mellitus, increased ammonia level, anemia, thrombocytopenia, chronic obstructive lung disease, obstructive sleep apnea syndrome, cardiomyopathy, pulmonary hypertension, cryptogenic cirrhosis of the liver, portal thrombosis, hypertension, history of lower extremity cellulitis, lymphedema, malnutrition, esophagitis, gastritis, duodenitis, vertebral fracture, degenerative joint disease, severe aortic stenosis, is not able to do her activities of daily living, altered mental status improving, hepatic encephalopathy. Continue to encourage positive airway pressure use at bedtime. Continue sequential compression devices. Length of time discussion done with the patient's nurse and the patient's son, Timothy. We will continue repeating laboratories. Out of bed. Physical therapy. We will follow up. Kristin Rg MD [facility] # [id number] MTDJeromy
[2018-08-20] MEDS: Lidocaine 5% Patch TD SCH (09:33)
[2018-08-20] MEDS: Cefepime 1gm in NS 100ml 1 GM/100 ML BAG IVPB SCH ×2 (09:38→21:26)
--- NOTE | 2018-08-20 13:46 | CP.PCM.PN ---
<Timothy Yang - Last Filed: 08/20/18 13:42> Subjective - Date & Time of Evaluation Date of Evaluation: 08/20/18 Time of Evaluation: 13:30 - Subjective Subjective: PGY-4 GI Fellow Prog Note Pt lying in bed when seen this AM. States that she has some mild abd pain that is stable, tolerating diet. More alert today. 5 point ROS negative other than stated above Objective - Vital Signs/Intake and Output Vital Signs (last 24 hours): Temp Pulse Resp BP Pulse Ox 98 F 71 20 111/44 L 96 08/20/18 12:00 08/20/18 12:00 08/20/18 12:00 08/20/18 12:00 08/20/18 11:30 Intake and Output: 08/20/18 08/20/18 06:59 18:59 Intake Total 1900 Output Total 6 Balance 1894 - Medications Medications: Current Medications Acetaminophen (Tylenol 325mg Tab) 650 mg PO Q6H PRN PRN Reason: Pain, moderate (4-7) Last Admin: 08/19/18 09:44 Dose: 650 mg Calcium/Vitamin D (Oscal-D 250 Mg-125 Units Tab) 1 tab PO DAILY [facility] Last Admin: 08/20/18 09:06 Dose: 1 tab Famotidine (Pepcid) 20 mg PO DAILY [facility] Last Admin: 08/20/18 09:05 Dose: 20 mg Furosemide (Lasix) 40 mg PO BID [facility] Last Admin: 08/20/18 09:25 Dose: 40 mg Cefepime HCl (Maxipime 1gm) 1 gm in 100 mls @ 100 mls/hr IVPB Q12 [facility]; Protocol Last Admin: 08/20/18 09:38 Dose: 100 mls/hr Insulin Human Regular (Humulin R Low) 0 units SC ACHS [facility]; Protocol Last Admin: 08/20/18 08:13 Dose: Not Given Lactulose (Enulose) 30 gm PO TID [facility] Last Admin: 08/20/18 09:06 Dose: 30 gm Levalbuterol HCl (Xopenex) 0.63 mg IH TIDRESP [facility] Last Admin: 08/20/18 13:12 Dose: 0.63 mg Lidocaine (Lidoderm) 1 ea TD DAILY [facility] Last Admin: 08/20/18 09:33 Dose: 1 ea Metoprolol Tartrate (Lopressor) 12.5 mg PO BID [facility] Last Admin: 08/20/18 09:24 Dose: 12.5 mg Sodium Chloride ([place] Nasal [place]) 0 ml NS TID PRN PRN Reason: Nasal congestion Last Admin: 08/12/18 09:14 Dose: 2 spr Spironolactone (Aldactone) 25 mg PO BID [facility] Last Admin: 08/20/18 09:24 Dose: 25 mg Ursodiol (Actigall) 300 mg PO BID [facility] Last Admin: 08/20/18 09:06 Dose: 300 mg - Labs Labs: 08/19/18 07:00 08/19/18 07:00 PT 13.5 SECONDS (9.4-12.5) H 08/09/18 07:35 INR 1.17 08/09/18 07:35 APTT 36.0 Seconds (25.1-36.5) 08/04/18 21:45 - Constitutional Appears: No Acute Distress, Cachectic, Chronically Ill - Head Exam Head Exam: ATRAUMATIC Additional comments: + temporal wasting - Eye Exam Eye Exam: EOMI, Scleral icterus - ENT Exam ENT Exam: Mucous Membranes Dry. absent: Mucous Membranes Moist - Respiratory Exam Respiratory Exam: NORMAL BREATHING PATTERN. absent: Accessory Muscle Use, Respiratory Distress - GI/Abdominal Exam GI & Abdominal Exam: Distended (mildly), Soft, Normal Bowel Sounds. absent: Bruit, Firm, Guarding, Rigid, Tenderness, Mass, Organomegaly, Pulsatile Mass Assessment and Plan - Assessment and Plan (Free Text) Assessment: 78 yo WF with multiple comorbities including cirrhosis, CAD, Pulm HTN, COPD, Aortic Stenosis [facility] and hypokalemia. 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 Suspect Cardiac or PAULA. Increased bilirubin is concerning from 2s to 8.2 on admission, INR 1.42 on admission with MELD-Na 20. - PVT: Seen on admission CT, Doppler did not reveal any thrombus - EV: Last EGD 4 yrs ago, unknown results - HCC: No masses seen on admission CT - Ascites: On Spironolactone and Furoseide though not in typical ratio - Hepatic Encephalopathy: Improved. NH3 elevated; unclear trigger, no obvious signs of bleeding, infection, WIN[place]RED, etc. # CHF, CAD, Pulm HTN, Right sided CHF, Severe # COPD # H/o Colonic AVMs Plan: - Abd Doppler reviewed: No obvious thrombus, patent vessels. Splenomegaly with varices. No ascites - MRCP with Abd MRI reviewed: Severe dilation of proximal CBD 16mm and normal distal CBD 3mm possibly due to CBD stricture. Pt is extremely high risk for complications with ERCP/EUS with extensive co-morbidities. - Cont Ursodiol - Cardiology consulted, appreciate recs - Monitor CMP, CBC, INR daily - Low Na diet - Cont diuretics - Cont lactulose, titrate to at least 3 BMs/day --- Can give rectal lactulose if unable to take PO Pt seen and examined with Dr. Freitas; please see attestation for further recs/changes <Stewart Freitas V - Last Filed: 08/21/18 00:00> Objective - Vital Signs/Intake and Output Vital Signs (last 24 hours): Temp Pulse Resp BP Pulse Ox 99.5 F 83 20 112/51 L 96 08/20/18 23:37 08/20/18 17:53 08/20/18 17:53 08/20/18 17:53 08/20/18 11:30 Intake and Output: 08/20/18 08/21/18 18:59 06:59 Intake Total 100 1560 Balance 100 1560 - Medications Medications: Current Medications Acetaminophen (Tylenol 325mg Tab) 650 mg PO Q6H PRN PRN Reason: Pain, moderate (4-7) Last Admin: 08/20/18 22:37 Dose: 650 mg Calcium/Vitamin D (Oscal-D 250 Mg-125 Units Tab) 1 tab PO DAILY [facility] Last Admin: 08/20/18 09:06 Dose: 1 tab Famotidine (Pepcid) 20 mg PO DAILY [facility] Last Admin: 08/20/18 09:05 Dose: 20 mg Furosemide (Lasix) 40 mg PO BID [facility] Last Admin: 08/20/18 17:18 Dose: 40 mg Cefepime HCl (Maxipime 1gm) 1 gm in 100 mls @ 100 mls/hr IVPB Q12 [facility]; Protocol Last Admin: 08/20/18 21:26 Dose: 100 mls/hr Insulin Human Regular (Humulin R Low) 0 units SC ACHS [facility]; Protocol Last Admin: 08/20/18 21:40 Dose: Not Given Lactulose (Enulose) 30 gm PO TID [facility] Last Admin: 08/20/18 17:30 Dose: 30 gm Levalbuterol HCl (Xopenex) 0.63 mg IH TIDRESP [facility] Last Admin: 08/20/18 20:14 Dose: Not Given Lidocaine (Lidoderm) 1 ea TD DAILY [facility] Last Admin: 08/20/18 09:33 Dose: 1 ea Metoprolol Tartrate (Lopressor) 12.5 mg PO BID [facility] Last Admin: 08/20/18 17:18 Dose: 12.5 mg Sodium Chloride ([place] Nasal [place]) 0 ml NS TID PRN PRN Reason: Nasal congestion Last Admin: 08/12/18 09:14 Dose: 2 spr Spironolactone (Aldactone) 25 mg PO BID [facility] Last Admin: 08/20/18 17:18 Dose: 25 mg Ursodiol (Actigall) 300 mg PO BID [facility] Last Admin: 08/20/18 17:18 Dose: 300 mg - Labs Labs: 08/19/18 07:00 08/19/18 07:00 PT 13.5 SECONDS (9.4-12.5) H 08/09/18 07:35 INR 1.17 08/09/18 07:35 APTT 36.0 Seconds (25.1-36.5) 08/04/18 21:45 Attending/Attestation - Attestation I have personally seen and examined this patient.: Yes I have fully participated in the care of the patient.: Yes I have reviewed all pertinent clinical information, including history, physical exam and plan: Yes Notes (Text): This is an addendum to GI progress report dictated by the GI Fellow. The patient was seen and examined earlier. Medical records, lab studies, imagings were reviewed. Last 24 hours events reviewed. Agreed with the above treatment plan as outlined in GI Fellow 's notes with the addition of the following 08/20/18 23:59
--- NOTE | 2018-08-20 13:52 | PN ---
DATE: 08/17/2018 REASON FOR CONSULTATION AND FOLLOWUP: Cardiac evaluation, history of coronary artery disease, history of aortic stenosis, transferred from [facility] due to generalized weakness. This note is in addition to dictated by nurse practitioner, Deisi Nair. Patient is still confused often but lying flat, not in apparent distress. Patient has history of cryptogenic cirrhosis, cellulitis of the lower extremities, severe aortic stenosis, refused TAVR in the past, history of coronary artery disease status post PTCA of RCA in 2008. RECOMMENDATIONS: Continue nutritional support. Continue gentle diuretics as blood pressure is tolerated. Continue spironolactone. Continue Lasix. Continue supportive care. Overall, patient's condition is critical. Long-term prognosis is extremely guarded. Consider DNR/DNI. Patient's protein calorie malnutrition is moderate. Albumin is 2.8 which was not present on admission. On 08/04/2018, his albumin was 3.2. Now, it is moderate. It was not present on admission. Thank you Dr. Rg for providing us the opportunity in taking care of the patient, Maria D Sullivan. Pablo Guillermo MD [facility]
--- NOTE | 2018-08-20 14:08 | PN ---
DATE: 08/20/2018 PULMONARY PROGRESS NOTE REFERRING PHYSICIAN: Kristin Rg MD SUBJECTIVE: The patient is sitting up in bed, in no acute distress. No overnight events reported. Reports not using CPAP machine last night. The patient appears more awake, alert, and verbal. No headache, rhinitis, cough, chest pain, shortness of breath, abdominal pain, nausea, vomiting, diarrhea, leg pain, leg swelling reported. OBJECTIVE GENERAL: No acute distress. VITAL SIGNS: Blood pressure 111/44, pulse 71, temperature 98, oxygen saturation 96. HEENT: Moist mucous membranes. Crowded airway. NECK: Supple. No JVD. LUNGS: Decreased breath sounds at bases. CARDIOVASCULAR: S1, S2 audible. Positive murmur. ABDOMEN: Soft. No distention. No organomegaly. EXTREMITIES: No bilateral lower extremity edema. NEUROLOGIC: Awake, alert, verbal. Follows commands. LABORATORY DATA: Reviewed. POC glucose 166. DIAGNOSTIC DATA: Abdomen-pelvis CT showed small left pleural effusion, adjacent consolidative change. No acute findings related to the patient's complaint of abdominal pain. MEDICATIONS: Reviewed. Tylenol 650 every 6 hours as needed, Os-Cristo one tab daily, cefepime 1 g every 12 hours, Pepcid 20 mg daily, Lasix 40 mg twice a day, Humulin R sliding scale before meals and at bedtime, lactulose 30 g three times a day, Xopenex 0.63 mg inhalation three times a day, Lidoderm patch topically to the affected area, Lopressor 12.5 mg twice a day, [place] Nasal [place] three times a day as needed, Aldactone 25 mg twice a day, Ursodiol 300 mg twice a day. IMPRESSION AND PLAN: Chronic obstructive lung disease, obstructive sleep apnea syndrome, cardiomyopathy with severe valvular heart disease, coronary artery disease, pulmonary hypertension, cryptogenic cirrhotic liver, portal thrombus, hypertension, lymphedema, history of lower extremity cellulitis, esophagitis, gastritis, duodenitis, vertebral fracture, malnutrition, severe aortic stenosis, degenerative joint disease, altered mental status, activities of daily living dysfunction. Sleep apnea precaution, head of bed elevated at 45 degrees. Continue to encourage continuous positive airway pressure use at bed time. Continue inhaled bronchodilators. Continue sequential compression devices to bilateral lower extremities for deep venous thrombosis prophylaxis. Continue Pepcid for gastric prophylaxis. Continue antibiotics as per Infectious Diseases. The patient was seen and examined with Dr. Cantor. Discussed assessment and plan as described above. Thank you for this consult. We will follow with you. Alec Marie APN Pablo Cantor MD
--- NOTE | 2018-08-20 14:58 | CP.PCM.PN ---
Subjective - Date & Time of Evaluation Date of Evaluation: 08/20/18 Time of Evaluation: 14:57 - Subjective Subjective: RENAL Note s: seen and examined mental status had improved earlier after lactulose and ammonia level trended down she denies SOB. appears more awake alert walking with PT pe: vs as below. frail chronically ill appearing, debilitated gen: nad sclera: icteric op: clear neck: supple cv: +S1+s2 no rub lungs: cta ant abd: soft nt nd no organomegaly ext: no edema neuro: following command awake alert psych: flat skin redness b/l lower extremities imp: hypokalemia/ chf / alkalosis/ anemia/hyponatremia/cirrhosis with portal HTN, hepatic enceph/severe with RV dysfunction/thrombocytopenia plan: k remains stable. supplement as needed CHF management as per cardio pt on lasix and aldactone pt not a candidate for samsca due to cirrhosis GI and cardiology following started lactulose avoids nsaids such as meloxicam, stopped due to recent rise in creat prognosis guarded Hyponatremia improved with IVF now stable on diuretics will sign off and follow further PRN please call if any Qs Objective - Vital Signs/Intake and Output Vital Signs (last 24 hours): Temp Pulse Resp BP Pulse Ox 98 F 71 20 111/44 L 96 08/20/18 12:00 08/20/18 12:00 08/20/18 12:00 08/20/18 12:00 08/20/18 11:30 Intake and Output: 08/20/18 08/20/18 06:59 18:59 Intake Total 1900 Output Total 6 Balance 1894 - Medications Medications: Current Medications Acetaminophen (Tylenol 325mg Tab) 650 mg PO Q6H PRN PRN Reason: Pain, moderate (4-7) Last Admin: 08/19/18 09:44 Dose: 650 mg Calcium/Vitamin D (Oscal-D 250 Mg-125 Units Tab) 1 tab PO DAILY [facility] Last Admin: 08/20/18 09:06 Dose: 1 tab Famotidine (Pepcid) 20 mg PO DAILY [facility] Last Admin: 08/20/18 09:05 Dose: 20 mg Furosemide (Lasix) 40 mg PO BID [facility] Last Admin: 08/20/18 09:25 Dose: 40 mg Cefepime HCl (Maxipime 1gm) 1 gm in 100 mls @ 100 mls/hr IVPB Q12 [facility]; Protocol Last Admin: 08/20/18 09:38 Dose: 100 mls/hr Insulin Human Regular (Humulin R Low) 0 units SC ACHS [facility]; Protocol Last Admin: 08/20/18 14:35 Dose: 1 unit Lactulose (Enulose) 30 gm PO TID [facility] Last Admin: 08/20/18 14:36 Dose: 30 gm Levalbuterol HCl (Xopenex) 0.63 mg IH TIDRESP [facility] Last Admin: 08/20/18 13:12 Dose: 0.63 mg Lidocaine (Lidoderm) 1 ea TD DAILY [facility] Last Admin: 08/20/18 09:33 Dose: 1 ea Metoprolol Tartrate (Lopressor) 12.5 mg PO BID [facility] Last Admin: 08/20/18 09:24 Dose: 12.5 mg Sodium Chloride ([place] Nasal [place]) 0 ml NS TID PRN PRN Reason: Nasal congestion Last Admin: 08/12/18 09:14 Dose: 2 spr Spironolactone (Aldactone) 25 mg PO BID [facility] Last Admin: 08/20/18 09:24 Dose: 25 mg Ursodiol (Actigall) 300 mg PO BID [facility] Last Admin: 08/20/18 09:06 Dose: 300 mg - Labs Labs: 08/19/18 07:00 08/19/18 07:00 PT 13.5 SECONDS (9.4-12.5) H 08/09/18 07:35 INR 1.17 08/09/18 07:35 APTT 36.0 Seconds (25.1-36.5) 08/04/18 21:45
--- NOTE | 2018-08-20 16:39 | CP.PCM.PN ---
Subjective - Date & Time of Evaluation Date of Evaluation: 08/20/18 Time of Evaluation: 10:45 - Subjective Subjective: PGY-2 heme/onc progress note for Dr Lambert Peña No acute events noted overnight. Patient did not offer any complaints. Mood was pleasant today. States that she has some mild abd pain that is stable, tolerating diet. Denied cp, sob, f/c/n/v. Objective - Vital Signs/Intake and Output Vital Signs (last 24 hours): Temp Pulse Resp BP Pulse Ox 98 F 71 20 111/44 L 96 08/20/18 12:00 08/20/18 12:00 08/20/18 12:00 08/20/18 12:00 08/20/18 11:30 Intake and Output: 08/20/18 08/20/18 06:59 18:59 Intake Total 1900 Output Total 6 Balance 1894 - Medications Medications: Current Medications Acetaminophen (Tylenol 325mg Tab) 650 mg PO Q6H PRN PRN Reason: Pain, moderate (4-7) Last Admin: 08/19/18 09:44 Dose: 650 mg Calcium/Vitamin D (Oscal-D 250 Mg-125 Units Tab) 1 tab PO DAILY [facility] Last Admin: 08/20/18 09:06 Dose: 1 tab Famotidine (Pepcid) 20 mg PO DAILY [facility] Last Admin: 08/20/18 09:05 Dose: 20 mg Furosemide (Lasix) 40 mg PO BID [facility] Last Admin: 08/20/18 09:25 Dose: 40 mg Cefepime HCl (Maxipime 1gm) 1 gm in 100 mls @ 100 mls/hr IVPB Q12 [facility]; Protocol Last Admin: 08/20/18 09:38 Dose: 100 mls/hr Insulin Human Regular (Humulin R Low) 0 units SC ACHS [facility]; Protocol Last Admin: 08/20/18 14:35 Dose: 1 unit Lactulose (Enulose) 30 gm PO TID [facility] Last Admin: 08/20/18 14:36 Dose: 30 gm Levalbuterol HCl (Xopenex) 0.63 mg IH TIDRESP [facility] Last Admin: 08/20/18 13:12 Dose: 0.63 mg Lidocaine (Lidoderm) 1 ea TD DAILY [facility] Last Admin: 08/20/18 09:33 Dose: 1 ea Metoprolol Tartrate (Lopressor) 12.5 mg PO BID [facility] Last Admin: 08/20/18 09:24 Dose: 12.5 mg Sodium Chloride ([place] Nasal [place]) 0 ml NS TID PRN PRN Reason: Nasal congestion Last Admin: 08/12/18 09:14 Dose: 2 spr Spironolactone (Aldactone) 25 mg PO BID [facility] Last Admin: 08/20/18 09:24 Dose: 25 mg Ursodiol (Actigall) 300 mg PO BID [facility] Last Admin: 08/20/18 09:06 Dose: 300 mg - Labs Labs: 08/19/18 07:00 08/19/18 07:00 PT 13.5 SECONDS (9.4-12.5) H 08/09/18 07:35 INR 1.17 08/09/18 07:35 APTT 36.0 Seconds (25.1-36.5) 08/04/18 21:45 - Additional Findings Additional findings: - Constitutional Appears: Non-toxic, No Acute Distress - Head Exam Head Exam: NORMAL INSPECTION, NORMOCEPHALIC - Eye Exam Eye Exam: Normal appearance Pupil Exam: NORMAL ACCOMODATION - ENT Exam ENT Exam: Mucous Membranes Dry - Respiratory Exam Respiratory Exam: Decreased Breath Sounds, NORMAL BREATHING PATTERN - Cardiovascular Exam Cardiovascular Exam: +S1, +S2 - GI/Abdominal Exam GI & Abdominal Exam: Soft, Normal Bowel Sounds - Extremities Exam Extremities Exam: Full ROM - Neurological Exam Neurological Exam: Alert, Awake - Psychiatric Exam Psychiatric exam: Normal Affect, Normal Mood - Skin Skin Exam: Dry, Normal Color, Warm Assessment and Plan - Assessment and Plan (Free Text) Plan: Mr. Killian nik 78 y/o woman with pmhx significant for cryptogenic cirhosis, DM, COPD, dementia; CHF; admitted with generalized fatigue, hypokalemia and LE celullitis infection. Hematology consulted regarding thromboctyopenia. Thrombocytopenia -Ddx likely secondary to cirrhosis vs sepsis physiology -Plts stable/improving as infection is being treated -Will continue to observe for now. Case discussed with Dr Peña
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
[2018-08-21] MEDS: Levalbuterol 0.63 MG/3 ML Inhal Soln UD IH SCH ×4 (00:20→20:45)
[2018-08-21] MEDS ORDERED: Levalbuterol 0.63 MG/3 ML Inhal Soln UD IH PRN (02:00)
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
--- NOTE | 2018-08-21 07:34 | CP.PCM.PN ---
<Timothy Yang - Last Filed: 08/21/18 09:56> Subjective - Date & Time of Evaluation Date of Evaluation: 08/21/18 Time of Evaluation: 08:05 - Subjective Subjective: PGY-4 GI Fellow Prog Note Pt lying in bed when seen this AM. States that she is doing well, some mild chronic abd pain that is stable. She states she doesn't want pain meds for it at this time, but will consider low dose APAP later. Tolerating diet and would like it advanced. 5 point ROS negative other than stated above Objective - Vital Signs/Intake and Output Vital Signs (last 24 hours): Temp Pulse Resp BP Pulse Ox 99.4 F 80 19 95/45 L 98 08/21/18 06:00 08/21/18 06:00 08/21/18 06:00 08/21/18 06:00 08/21/18 06:00 Intake and Output: 08/21/18 08/21/18 06:59 18:59 Intake Total 1660 Output Total 1 Balance 1659 - Medications Medications: Current Medications Acetaminophen (Tylenol 325mg Tab) 650 mg PO Q6H PRN PRN Reason: Pain, moderate (4-7) Last Admin: 08/20/18 22:37 Dose: 650 mg Calcium/Vitamin D (Oscal-D 250 Mg-125 Units Tab) 1 tab PO DAILY [facility] Last Admin: 08/20/18 09:06 Dose: 1 tab Famotidine (Pepcid) 20 mg PO DAILY [facility] Last Admin: 08/20/18 09:05 Dose: 20 mg Furosemide (Lasix) 40 mg PO BID [facility] Last Admin: 08/20/18 17:18 Dose: 40 mg Cefepime HCl (Maxipime 1gm) 1 gm in 100 mls @ 100 mls/hr IVPB Q12 [facility]; Protocol Last Admin: 08/20/18 21:26 Dose: 100 mls/hr Insulin Human Regular (Humulin R Low) 0 units SC ACHS [facility]; Protocol Last Admin: 08/20/18 21:40 Dose: Not Given Lactulose (Enulose) 30 gm PO TID [facility] Last Admin: 08/20/18 17:30 Dose: 30 gm Levalbuterol HCl (Xopenex) 0.63 mg IH TIDRESP [facility] Last Admin: 08/21/18 00:20 Dose: 0.63 mg Lidocaine (Lidoderm) 1 ea TD DAILY [facility] Last Admin: 08/20/18 09:33 Dose: 1 ea Metoprolol Tartrate (Lopressor) 12.5 mg PO BID [facility] Last Admin: 08/20/18 17:18 Dose: 12.5 mg Sodium Chloride ([place] Nasal [place]) 0 ml NS TID PRN PRN Reason: Nasal congestion Last Admin: 08/12/18 09:14 Dose: 2 spr Spironolactone (Aldactone) 25 mg PO BID [facility] Last Admin: 08/20/18 17:18 Dose: 25 mg Ursodiol (Actigall) 300 mg PO BID [facility] Last Admin: 08/20/18 17:18 Dose: 300 mg - Labs Labs: 08/19/18 07:00 08/19/18 07:00 PT 13.5 SECONDS (9.4-12.5) H 08/09/18 07:35 INR 1.17 08/09/18 07:35 APTT 36.0 Seconds (25.1-36.5) 08/04/18 21:45 - Constitutional Appears: No Acute Distress, Chronically Ill - Head Exam Head Exam: ATRAUMATIC Additional comments: temporal wasting - Eye Exam Eye Exam: EOMI, Scleral icterus - ENT Exam ENT Exam: Mucous Membranes Dry. absent: Mucous Membranes Moist - Respiratory Exam Respiratory Exam: NORMAL BREATHING PATTERN. absent: Accessory Muscle Use, Respiratory Distress - GI/Abdominal Exam GI & Abdominal Exam: Soft, Normal Bowel Sounds. absent: Bruit, Distended, Firm, Guarding, Rigid, Tenderness, Mass, Organomegaly Assessment and Plan - Assessment and Plan (Free Text) Assessment: 78 yo WF with multiple comorbities including cirrhosis, CAD, Pulm HTN, COPD, Aortic Stenosis sent in from [facility] for weakness and hypokalemia. 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 Suspect Cardiac or PAULA. Increased bilirubin is concerning from 2s to 8.2 on admission, INR 1.42 on admission with MELD-Na 20. - PVT: Seen on admission CT, Doppler did not reveal any thrombus. Abd Doppler reviewed: No obvious thrombus, patent vessels. Splenomegaly with varices. MRCP with Abd MRI reviewed with severe dilation of proximal CBD 16mm and normal distal CBD 3mm possibly due to CBD stricture. Pt is extremely high risk for complications with ERCP/EUS with extensive co-morbidities. Cardiology consulted and agree pt very high risk. - EV: Last EGD 4 yrs ago, unknown results - HCC: No masses seen on admission CT - Ascites: On Spironolactone and Furoseide though not in typical ratio - Hepatic Encephalopathy: Improved. NH3 elevated; unclear trigger, no obvious signs of bleeding, infection, [place], etc. # CHF, CAD, Pulm HTN, Right sided CHF, Severe # COPD # H/o Colonic AVMs Plan: - Cont Ursodiol - Low Na diet - Cont diuretics - Cont lactulose, titrate to at least 3 BMs/day indefinitely for Hepatic Encephalopathy maintenance --- Can give rectal lactulose if unable to take PO Pt seen and examined with Dr. Freitas; please see attestation for further recs/changes <Stewart Freitas V - Last Filed: 08/22/18 00:08> Objective - Vital Signs/Intake and Output Vital Signs (last 24 hours): Temp Pulse Resp BP Pulse Ox 99.4 F 107 H 20 123/56 L 98 08/22/18 00:01 08/22/18 00:01 08/22/18 00:01 08/22/18 00:01 08/21/18 06:00 Intake and Output: 08/21/18 08/22/18 18:59 06:59 Intake Total 300 Balance 300 - Medications Medications: Current Medications Acetaminophen (Tylenol 325mg Tab) 650 mg PO Q6H PRN PRN Reason: Pain, moderate (4-7) Last Admin: 08/21/18 23:27 Dose: 650 mg Calcium/Vitamin D (Oscal-D 250 Mg-125 Units Tab) 1 tab PO DAILY [facility] Last Admin: 08/21/18 11:40 Dose: 1 tab Famotidine (Pepcid) 20 mg PO DAILY [facility] Last Admin: 08/21/18 11:41 Dose: 20 mg Furosemide (Lasix) 40 mg PO BID [facility] Last Admin: 08/21/18 17:16 Dose: Not Given Cefepime HCl (Maxipime 1gm) 1 gm in 100 mls @ 100 mls/hr IVPB Q12 [facility]; Protocol Last Admin: 08/21/18 21:13 Dose: 100 mls/hr Sodium Chloride (Sodium Chloride 0.9%) 1,000 mls @ 100 mls/hr IV .Q10H [facility] Last Admin: 08/21/18 17:51 Dose: 100 mls/hr Insulin Human Regular (Humulin R Low) 0 units SC ACHS [facility]; Protocol Last Admin: 08/21/18 21:30 Dose: Not Given Lactulose (Enulose) 30 gm PO TID [facility] Last Admin: 08/21/18 17:20 Dose: 30 gm Levalbuterol HCl (Xopenex) 0.63 mg IH TIDRESP [facility] Last Admin: 08/21/18 20:45 Dose: 0.63 mg Lidocaine (Lidoderm) 1 ea TD DAILY [facility] Last Admin: 08/21/18 11:40 Dose: 1 ea Metoprolol Tartrate (Lopressor) 12.5 mg PO BID [facility] Last Admin: 08/21/18 17:16 Dose: Not Given Spironolactone (Aldactone) 25 mg PO BID [facility] Last Admin: 08/21/18 17:33 Dose: Not Given Ursodiol (Actigall) 300 mg PO BID [facility] Last Admin: 08/21/18 17:20 Dose: 300 mg - Labs Labs: 08/21/18 16:30 08/21/18 16:30 PT 13.5 SECONDS (9.4-12.5) H 08/09/18 07:35 INR 1.17 08/09/18 07:35 APTT 36.0 Seconds (25.1-36.5) 08/04/18 21:45 Attending/Attestation - Attestation I have personally seen and examined this patient.: Yes I have fully participated in the care of the patient.: Yes I have reviewed all pertinent clinical information, including history, physical exam and plan: Yes Notes (Text): This is an addendum to GI progress report dictated by the GI Fellow.The patient was seen and examined earlier. Medical records, lab studies, imagings were reviewed. Last 24 hours events reviewed. Agreed with the above treatment plan as outlined in GI Fellow 's notes with the addition of the following 08/22/18 00:08
--- NOTE | 2018-08-21 08:31 | PN ---
DATE: 08/20/2018 REASON FOR CONSULTATION: Cardiac evaluation, CHF, history of cryptogenic cirrhosis, severe aortic stenosis, coronary artery disease. SUBJECTIVE: The patient feels a lot better. Confusion got better. Says that "I am, understand that, in [facility]." Denies any chest pain, shortness of breath, any palpitation. OBJECTIVE: GENERAL: Not in apparent distress. VITAL SIGNS: As follows: Temperature afebrile, heart rate 87, blood pressure 110/50. HEENT: PERRLA. Extraocular muscles intact. NECK: Supple. No carotid bruit or thyromegaly. CHEST: Clear to auscultation. HEART: S1 and S2 regular. ABDOMEN: Soft. EXTREMITIES: Clubbing and cyanosis, negative. LABORATORY DATA: Blood workup revealed last WBC of 5.8, hemoglobin 11.1, hematocrit 32.9, platelet count 109. Chemistry shows sodium 130, potassium 4.0, chloride 99, carbon dioxide 33, anion gap of 5, BUN 46, creatinine 0.7. IMPRESSION: A 78-year-old female with past medical history significant for coronary artery disease, status post percutaneous transluminal coronary angioplasty of right coronary artery in 2008; history of aortic stenosis, severe, refused transcatheter aortic valve replacement in the past; history of cryptogenic cirrhosis with pulmonary portal hypertension; severe thrombocytopenia; history of frequent spontaneous nosebleed, off antiplatelet therapy; admitted with mild congestive heart failure secondary to diastolic dysfunction. RECOMMENDATIONS: Continue metoprolol. Continue spironolactone. Continue Pepcid. Overall, the patient's condition is critical. Long-term prognosis is guarded. We will follow with you. Continue p.o. Lasix. We will consider DNR and DNI. We will discontinue telemetry. We will continue supportive care. Thank you Dr. Rg for providing us the opportunity in taking care of the patient, Maria D Sullivan. Pablo Guillermo MD
[2018-08-21] MEDS: Insulin Reg-LOW-Coverage SC SCH ×4 (08:35→21:30)
[2018-08-21] MEDS ORDERED: Vancomycin 1gm in NS 250ml 1 GM/250 ML BAG IVPB STA (09:29)
--- NOTE | 2018-08-21 09:42 | CP.PCM.PN ---
Subjective - Date & Time of Evaluation Date of Evaluation: 08/21/18 Time of Evaluation: 09:37 - Subjective Subjective: PGY-2 heme/onc progress note for Dr Lambert Peña No acute events noted overnight. Patient has been refusing cpap and finger checks intermittently. Today she denied any pain - stated she felt well. Stated she was ambulating and working with PT and tolerating diet. Denied any bleeding. Objective - Vital Signs/Intake and Output Vital Signs (last 24 hours): Temp Pulse Resp BP Pulse Ox 99.4 F 80 19 95/45 L 98 08/21/18 06:00 08/21/18 06:00 08/21/18 06:00 08/21/18 06:00 08/21/18 06:00 Intake and Output: 08/21/18 08/21/18 06:59 18:59 Intake Total 1660 Output Total 1 Balance 1659 - Medications Medications: Current Medications Acetaminophen (Tylenol 325mg Tab) 650 mg PO Q6H PRN PRN Reason: Pain, moderate (4-7) Last Admin: 08/20/18 22:37 Dose: 650 mg Calcium/Vitamin D (Oscal-D 250 Mg-125 Units Tab) 1 tab PO DAILY [facility] Last Admin: 08/20/18 09:06 Dose: 1 tab Famotidine (Pepcid) 20 mg PO DAILY [facility] Last Admin: 08/20/18 09:05 Dose: 20 mg Furosemide (Lasix) 40 mg PO BID [facility] Last Admin: 08/20/18 17:18 Dose: 40 mg Cefepime HCl (Maxipime 1gm) 1 gm in 100 mls @ 100 mls/hr IVPB Q12 [facility]; Protocol Last Admin: 08/20/18 21:26 Dose: 100 mls/hr Vancomycin HCl (Vancomycin 1gm) 1 gm in 250 mls @ 167 mls/hr IVPB STAT ST[facility]; Protocol Stop: 08/21/18 10:58 Insulin Human Regular (Humulin R Low) 0 units SC ACHS [facility]; Protocol Last Admin: 08/21/18 08:35 Dose: Not Given Lactulose (Enulose) 30 gm PO TID [facility] Last Admin: 08/20/18 17:30 Dose: 30 gm Levalbuterol HCl (Xopenex) 0.63 mg IH TIDRESP [facility] Last Admin: 08/21/18 08:10 Dose: Not Given Lidocaine (Lidoderm) 1 ea TD DAILY [facility] Last Admin: 08/20/18 09:33 Dose: 1 ea Metoprolol Tartrate (Lopressor) 12.5 mg PO BID [facility] Last Admin: 08/20/18 17:18 Dose: 12.5 mg Spironolactone (Aldactone) 25 mg PO BID [facility] Last Admin: 08/20/18 17:18 Dose: 25 mg Ursodiol (Actigall) 300 mg PO BID [facility] Last Admin: 08/20/18 17:18 Dose: 300 mg - Labs Labs: 08/19/18 07:00 08/19/18 07:00 PT 13.5 SECONDS (9.4-12.5) H 08/09/18 07:35 INR 1.17 08/09/18 07:35 APTT 36.0 Seconds (25.1-36.5) 08/04/18 21:45 - Additional Findings Additional findings: - Constitutional Appears: Non-toxic, No Acute Distress - Head Exam Head Exam: NORMAL INSPECTION, NORMOCEPHALIC - Eye Exam Eye Exam: Normal appearance Pupil Exam: NORMAL ACCOMODATION - ENT Exam ENT Exam: Mucous Membranes Dry - Respiratory Exam Respiratory Exam: Decreased Breath Sounds, NORMAL BREATHING PATTERN - Cardiovascular Exam Cardiovascular Exam: +S1, +S2 - GI/Abdominal Exam GI & Abdominal Exam: Soft, Normal Bowel Sounds - Extremities Exam Extremities Exam: Full ROM - Neurological Exam Neurological Exam: Alert, Awake - Psychiatric Exam Psychiatric exam: Normal Affect, Normal Mood - Skin Skin Exam: Dry, Normal Color, Warm Assessment and Plan - Assessment and Plan (Free Text) Plan: Mr. Killian nik 78 y/o woman with pmhx significant for cryptogenic cirhosis, DM, C OPD, dementia; CHF; admitted with generalized fatigue, hypokalemia and LE celullitis infection. Hematology consulted regarding thromboctyopenia. Thrombocytopenia -Ddx likely secondary to cirrhosis vs sepsis physiology -Plts stable/improving as infection is being treated -Will continue to observe for now. Case discussed with Dr Peña
[2018-08-21] MEDS: Cefepime 1gm in NS 100ml 1 GM/100 ML BAG IVPB SCH ×2 (11:16→21:13)
[2018-08-21] MEDS: Calcium-Vit D 250 mg-125 Units Tab UD PO SCH (11:40)
[2018-08-21] MEDS: Lidocaine 5% Patch TD SCH (11:40)
--- NOTE | 2018-08-21 11:49 | RAD ---
Date of service: 08/21/2018 HISTORY: rule out pneumonia COMPARISON: 08/17/2018 FINDINGS: LUNGS: The right lung is well inflated and clear. There is subsegmental atelectasis in the left lung base. PLEURA: No pleural effusions or pneumothorax. CARDIOVASCULAR: Moderate cardiomegaly. There are aortic atherosclerotic calcifications present. OSSEOUS STRUCTURES: Within normal limits for the patient's age. VISUALIZED UPPER ABDOMEN: Normal. OTHER FINDINGS: None. IMPRESSION: No active pulmonary disease. Subsegmental atelectasis in the left lung base. Superimposed pneumonia cannot be entirely excluded. Follow-up after medical management is recommended to ensure complete resolution.
--- NOTE | 2018-08-21 12:40 | PN ---
DATE: 08/21/2018 PULMONARY PROGRESS NOTE REFERRING PHYSICIAN: Kristin Rg MD SUBJECTIVE: The patient is sitting up in bed. No acute distress. No overnight events reported. The patient reports not using CPAP machine last night, has periodic coughing. No headache, rhinitis, shortness of breath, chest pain, abdominal pain, nausea, vomiting or diarrhea, leg pain or leg swelling reported. OBJECTIVE: GENERAL: No acute distress. VITAL SIGNS: Blood pressure 95/45, pulse 80, temperature 99.4, and oxygen saturation 98% on room air. HEENT: Moist mucous membranes. Crowded airway. NECK: Supple. No JVD. LUNGS: Decreased breath sounds at the bases. CARDIOVASCULAR: S1 and S2, positive murmur. ABDOMEN: Soft and nontender. No distension. No organomegaly. EXTREMITIES: No bilateral lower extremity edema. NEUROLOGIC: Awake, alert, and verbal. Follows commands. MEDICATIONS: Reviewed. Tylenol 650 mg every 6 hours p.r.n. moderate pain, Os-Cristo 250 mg one tab daily, cefepime 1 g every 12 hours, Pepcid 20 mg daily, Lasix 40 mg twice a day, Humulin R sliding scale before meals and at bedtime, lactulose 30 g 3 times a day, Xopenex 0.63 mg inhalation 3 times a day, Lidocaine patch topically to affected area daily, metoprolol tartrate 12.5 mg twice a day, spironolactone 25 mg twice a day, Ursodiol 300 mg twice a day. LABORATORY DATA: Reviewed. POC glucose 176. Chest x-ray report pending. IMPRESSION AND PLAN: Chronic obstructive lung disease, obstructive sleep apnea syndrome, cardiomyopathy with severe valvular heart disease, coronary artery disease, pulmonary hypertension, cryptogenic cirrhotic liver, portal thrombus, hypertension, lymphedema, history of lower extremity cellulitis, esophagitis, gastritis, duodenitis, vertebral fracture, malnutrition, degenerative joint disease, altered mental status, activities of daily living dysfunction, severe aortic stenosis. The patient presently refusing continuous positive airway pressure machine, continue to encourage continuous positive airway pressure use at bedtime, sleep apnea precaution, head of bed elevated at 45 degrees. Continue inhaled bronchodilators, sequential compression devices to bilateral lower extremities for deep venous thrombosis, continue gastric prophylaxis, antibiotics per Infectious Disease. The patient will benefit from physical therapy on rehab out of bed to chair. The patient was seen and examined with Dr. Cantor. Discussed assessment and plan as described above. Thank you for this consult. We will follow with you. Alec Marie APN Pablo Cantor MD
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
[2018-08-21 16:35] LABS: BASO # 0.02 K/mm3 (0.0-2.0); BASO % 0.5 % (0.0-3.0); EOS # 0.1 (0.0-0.7); EOS % 2.2 % (1.5-5.0); GRAN # 2.76 (1.4-6.5); GRAN % 68.2 % (50.0-68.0); HEMOGLOBIN 10.1 g/dL (12.0-16.0); LYMPH # 0.8 (1.2-3.4); LYMPH % 19.5 % (22.0-35.0); MEAN CORPUSCULAR HEMOGLOBIN 32.1 pg (25.0-35.0); MEAN CORPUSCULAR HGB CONC 34.5 g/dl (31.0-37.0); MEAN PLATELET VOLUME 9.1 fl (7.0-11.0); MONO # 0.4 (0.1-0.6); MONO % 9.6 % (1.0-6.0); RBC 3.15 10^6/uL (3.5-6.1); RED CELL DISTRIBUTION WIDTH 16.9 % (11.5-14.5); WHITE BLOOD COUNT 4.1 10^3/uL (4.5-11.0)
[2018-08-21 17:25] LABS: BLOOD UREA NITROGEN 27 mg/dL (7-21); CALCIUM 8.7 mg/dL (8.4-10.5); GFR NON-AFRICAN AMERICAN > 60
[2018-08-21] MEDS: Sodium Chloride 0.9% 1,000 ML IV SCH (17:51)
[2018-08-22 00:28] LABS: URINE BILIRUBIN NEGATIVE (NEGATIVE); URINE BLOOD SMALL (NEGATIVE); URINE GLUCOSE (UA) NEGATIVE (NEGATIVE); URINE LEUKOCYTE ESTERASE SMALL Leu/uL (NEGATIVE); URINE PROTEIN NEGATIVE mg/dL (<30 mg/dL); URINE UROBILINOGEN 0.2 E.U./dL (<1 E.U./dL)
[2018-08-22 00:29] LABS: URINE APPEARANCE CLOUDY (CLEAR); URINE COLOR YELLOW (YELLOW)
[2018-08-22 00:40] LABS: URINE BACTERIA MANY /hpf; URINE RBC 0 - 2 /hpf (0-2)
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
[2018-08-22] MEDS: Sodium Chloride 0.9% 1,000 ML IV SCH ×3 (04:13→14:40)
[2018-08-22] MEDS: Levalbuterol 0.63 MG/3 ML Inhal Soln UD IH SCH ×4 (07:29→21:35)
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
[2018-08-22 07:39] LABS: BASO # 0.03 K/mm3 (0.0-2.0); BASO % 0.7 % (0.0-3.0); EOS % 0.7 % (1.5-5.0); GRAN # 3.09 (1.4-6.5); GRAN % 69.1 % (50.0-68.0); HEMOGLOBIN 9.3 g/dL (12.0-16.0); LYMPH # 0.6 (1.2-3.4); LYMPH % 13.2 % (22.0-35.0); MEAN CELL VOLUME 92.7 fl (80.0-105.0); MEAN CORPUSCULAR HEMOGLOBIN 32.4 pg (25.0-35.0); MEAN PLATELET VOLUME 8.7 fl (7.0-11.0); MONO # 0.7 (0.1-0.6); MONO % 16.3 % (1.0-6.0); RBC 2.87 10^6/uL (3.5-6.1); RED CELL DISTRIBUTION WIDTH 17.1 % (11.5-14.5); WHITE BLOOD COUNT 4.5 10^3/uL (4.5-11.0)
[2018-08-22 07:51] LABS: BLOOD UREA NITROGEN 25 mg/dL (7-21); GFR NON-AFRICAN AMERICAN > 60
[2018-08-22] MEDS: Insulin Reg-LOW-Coverage SC SCH ×4 (07:57→21:58)
--- NOTE | 2018-08-22 08:21 | PN ---
DATE: 08/21/2018 REASON FOR CONSULTATION: Cardiac evaluation, history of cryptogenic cirrhosis, severe aortic stenosis, and coronary artery disease. The patient feels a lot better, awake and alert. This note is in addition to dictated by nurse practitioner, Deisi Nair. In summary, the patient is a 78-year-old female with history of coronary artery disease, status post PTCA; 2019 of RCA; history of severe aortic stenosis, refused TAVR in the past; history of cryptogenic cirrhosis; history of thrombocytopenia; and history of spontaneous nosebleed. Admitted with decompensated congestive heart failure, altered mental status, and swelling in the leg. RECOMMENDATIONS: Continue aggressive medical treatment including nutritional support. Continue lactulose. Continue spironolactone. Continue gentle diuretics. Overall, the patient's condition is critical. Long-term prognosis is guarded. Medical treatment. Continue gentle Lasix as mentioned. Continue Aldactone. Continue beta kirby. Discharge planning. Thank you Dr. Rg for providing us the opportunity in taking care of the patient, Maria D Sullivan. Pablo Guillermo MD ARACELI
--- NOTE | 2018-08-22 09:37 | CP.PCM.PN ---
<Timothy Yang - Last Filed: 08/22/18 17:29> Subjective - Date & Time of Evaluation Date of Evaluation: 08/22/18 Time of Evaluation: 07:35 - Subjective Subjective: PGY-4 GI Fellow Prog Note Pt lying in bed receiving breathing treatment when seen this AM. States she is doing well. Denied abd pain and tolerating diet. She wonders if she will be DCed soon. During PM rounds, somewhat more tired and son expressed concern about mental status. 5 point ROS negative other than stated above Objective - Vital Signs/Intake and Output Vital Signs (last 24 hours): Temp Pulse Resp BP Pulse Ox 99.3 F 91 H 20 96/52 L 98 08/22/18 05:57 08/22/18 05:57 08/22/18 05:57 08/22/18 05:57 08/22/18 05:57 Intake and Output: 08/22/18 08/22/18 06:59 18:59 Intake Total 1200 Output Total 3 Balance 1197 - Medications Medications: Current Medications Acetaminophen (Tylenol 325mg Tab) 650 mg PO Q6H PRN PRN Reason: Pain, moderate (4-7) Last Admin: 08/22/18 05:52 Dose: 650 mg Calcium/Vitamin D (Oscal-D 250 Mg-125 Units Tab) 1 tab PO DAILY [facility] Last Admin: 08/21/18 11:40 Dose: 1 tab Famotidine (Pepcid) 20 mg PO DAILY [facility] Last Admin: 08/21/18 11:41 Dose: 20 mg Furosemide (Lasix) 40 mg PO BID [facility] Last Admin: 08/21/18 17:16 Dose: Not Given Cefepime HCl (Maxipime 1gm) 1 gm in 100 mls @ 100 mls/hr IVPB Q12 [facility]; Protocol Last Admin: 08/21/18 21:13 Dose: 100 mls/hr Sodium Chloride (Sodium Chloride 0.9%) 1,000 mls @ 100 mls/hr IV .Q10H [facility] Last Admin: 08/22/18 04:13 Dose: 100 mls/hr Insulin Human Regular (Humulin R Low) 0 units SC ACHS [facility]; Protocol Last Admin: 08/22/18 07:57 Dose: Not Given Lactulose (Enulose) 30 gm PO TID [facility] Last Admin: 08/21/18 17:20 Dose: 30 gm Levalbuterol HCl (Xopenex) 0.63 mg IH TIDRESP [facility] Last Admin: 08/22/18 07:29 Dose: 0.63 mg Lidocaine (Lidoderm) 1 ea TD DAILY [facility] Last Admin: 08/21/18 11:40 Dose: 1 ea Metoprolol Tartrate (Lopressor) 12.5 mg PO BID [facility] Last Admin: 08/21/18 17:16 Dose: Not Given Spironolactone (Aldactone) 25 mg PO BID [facility] Last Admin: 08/21/18 17:33 Dose: Not Given Ursodiol (Actigall) 300 mg PO BID [facility] Last Admin: 08/21/18 17:20 Dose: 300 mg - Labs Labs: 08/22/18 07:00 08/22/18 07:00 PT 13.5 SECONDS (9.4-12.5) H 08/09/18 07:35 INR 1.17 08/09/18 07:35 APTT 36.0 Seconds (25.1-36.5) 08/04/18 21:45 - Constitutional Appears: No Acute Distress, Chronically Ill - Head Exam Head Exam: ATRAUMATIC, NORMAL INSPECTION - Eye Exam Eye Exam: EOMI, Scleral icterus - ENT Exam ENT Exam: Mucous Membranes Dry. absent: Mucous Membranes Moist - Respiratory Exam Respiratory Exam: NORMAL BREATHING PATTERN. absent: Accessory Muscle Use, Respiratory Distress - GI/Abdominal Exam GI & Abdominal Exam: Soft, Normal Bowel Sounds. absent: Bruit, Distended, Firm, Guarding, Rigid, Tenderness, Mass, Organomegaly, Pulsatile Mass Assessment and Plan - Assessment and Plan (Free Text) Assessment: 78 yo WF with multiple comorbities including cirrhosis, CAD, Pulm HTN, COPD, Aortic Stenosis [facility] for weakness and hypokalemia. 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 Suspect Cardiac or PAULA. Increased bilirubin is concerning from 2s to 8.2 on admission, INR 1.42 on admission with MELD-Na 20. - PVT: Seen on admission CT, Doppler did not reveal any thrombus. Abd Doppler reviewed: No obvious thrombus, patent vessels. Splenomegaly with varices. MRCP with Abd MRI reviewed with severe dilation of proximal CBD 16mm and normal dist al CBD 3mm possibly due to CBD stricture. Pt is extremely high risk for co mplications with ERCP/EUS with extensive co-morbidities. Cardiology consulted and agree pt very high risk. - EV: Last EGD 4 yrs ago, unknown results - HCC: No masses seen on admission CT - Ascites: On Spironolactone and Furoseide though not in typical ratio - Hepatic Encephalopathy: Fluctuating level of consciousness, overall if consistenting stooling 3-4 BMs seems to be improved, # CHF, CAD, Pulm HTN, Right sided CHF, Severe # COPD # H/o Colonic AVMs Plan: - Cont Ursodiol - Low Na diet - Cont diuretics - Cont lactulose, with decreased to BID given plans to start rifaxamin for possible refractory HE - Rifaxamin BID, first dose tonight - Plan extensively discussed with son at length today. Pt seen and examined with Dr. Freitas; please see attestation for further recs/changes <Stewart Freitas V - Last Filed: 08/22/18 23:52> Objective - Vital Signs/Intake and Output Vital Signs (last 24 hours): Temp Pulse Resp BP Pulse Ox 98.7 F 80 18 122/64 97 08/22/18 23:48 08/22/18 23:48 08/22/18 23:48 08/22/18 23:48 08/22/18 23:48 Intake and Output: 08/22/18 08/23/18 18:59 06:59 Intake Total 1459 Balance 1459 - Medications Medications: Current Medications Acetaminophen (Tylenol 325mg Tab) 650 mg PO Q6H PRN PRN Reason: Pain, moderate (4-7) Last Admin: 08/22/18 05:52 Dose: 650 mg Acetaminophen (Tylenol 650 Mg Supp) 650 mg RC Q6 PRN PRN Reason: temperature 99.4 OR HIGHER Last Admin: 08/22/18 11:56 Dose: 650 mg Calcium/Vitamin D (Oscal-D 250 Mg-125 Units Tab) 1 tab PO DAILY [facility] Last Admin: 08/22/18 10:15 Dose: Not Given Famotidine (Pepcid) 20 mg PO DAILY [facility] Last Admin: 08/22/18 10:15 Dose: Not Given Furosemide (Lasix) 20 mg PO BID [facility] Last Admin: 08/22/18 22:12 Dose: Not Given Cefepime HCl (Maxipime 1gm) 1 gm in 100 mls @ 100 mls/hr IVPB Q12 [facility]; Protocol Last Admin: 08/22/18 22:13 Dose: 100 mls/hr Sodium Chloride (Sodium Chloride 0.9%) 1,000 mls @ 100 mls/hr IV .Q10H [facility] Last Admin: 08/22/18 14:40 Dose: 100 mls/hr Insulin Human Regular (Humulin R Low) 0 units SC ACHS [facility]; Protocol Last Admin: 08/22/18 21:58 Dose: Not Given Lactulose (Enulose) 30 gm PO BID [facility] Last Admin: 08/22/18 17:43 Dose: 30 gm Levalbuterol HCl (Xopenex) 0.63 mg IH TIDRESP [facility] Last Admin: 08/22/18 21:35 Dose: 0.63 mg Lidocaine (Lidoderm) 1 ea TD DAILY [facility] Last Admin: 08/22/18 10:13 Dose: 1 ea Metoprolol Tartrate (Lopressor) 12.5 mg PO BID [facility] Last Admin: 08/22/18 18:29 Dose: 12.5 mg Rifaximin (Xifaxan) 550 mg PO BID [facility]; Protocol Last Admin: 08/22/18 17:44 Dose: 550 mg Spironolactone (Aldactone) 25 mg PO BID [facility] Last Admin: 08/22/18 18:28 Dose: 25 mg Ursodiol (Actigall) 300 mg PO BID [facility] Last Admin: 08/22/18 17:46 Dose: 300 mg - Labs Labs: 08/22/18 07:00 08/22/18 07:00 PT 13.5 SECONDS (9.4-12.5) H 08/09/18 07:35 INR 1.17 08/09/18 07:35 APTT 36.0 Seconds (25.1-36.5) 08/04/18 21:45 Attending/Attestation - Attestation I have personally seen and examined this patient.: Yes I have fully participated in the care of the patient.: Yes I have reviewed all pertinent clinical information, including history, physical exam and plan: Yes Notes (Text): This is an addendum to GI progress report dictated by the GI Fellow. The patient was seen and examined earlier. Medical records, lab studies, imagings were reviewed. Last 24 hours events reviewed. Agreed with the above treatment plan as outlined in GI Fellow 's notes with the addition of the following 08/22/18 23:51
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
[2018-08-22] MEDS: Lidocaine 5% Patch TD SCH (10:13)
[2018-08-22] MEDS: Cefepime 1gm in NS 100ml 1 GM/100 ML BAG IVPB SCH ×2 (10:13→22:13)
[2018-08-22] MEDS: Calcium-Vit D 250 mg-125 Units Tab UD PO SCH (10:15)
--- NOTE | 2018-08-22 14:19 | PN ---
DATE: 08/22/2018 PULMONARY PROGRESS NOTE REFERRING PHYSICIAN: Kristin Rg MD SUBJECTIVE: The patient is lying in bed, asleep, and arousable. No acute distress. No overnight events reports. Reports not using CPAP machine last night. No headache, rhinitis, cough shortness of breath, chest pain, abdominal pain, nausea, vomiting or diarrhea, leg pain or leg swelling reported. PHYSICAL EXAMINATION GENERAL: No acute distress. VITAL SIGNS: Blood pressure 124/56, pulse 82, temperature 99.5, and oxygen saturation 98%. HEENT: Moist mucous membranes. Crowded airway. NECK: Supple. No JVD. LUNGS: Few rhonchi bilaterally. CARDIOVASCULAR: S1 and S2 audible. Positive murmur. ABDOMEN: Soft and nontender. No distension. No organomegaly. EXTREMITIES: No bilateral lower extremities edema. NEUROLOGICAL: Asleep, easily arousable, verbal, and follows commands. MEDICATIONS: Reviewed. Tylenol 650 mg every 6 hours p.r.n. for moderate pain, Tylenol 650 mg every 6 hours rectal p.r.n. temperature for fever, Os-Cristo one tab daily, cefepime 1 gram every 12 hours, Pepcid 20 mg daily, Lasix 40 mg twice a day, Humulin R sliding scale a.c. and at bedtime, lactulose 30 grams three times a day, Xopenex 0.63 mg inhalation 3 times a day, Lidoderm patch 1 topically to affected area daily, metoprolol tartrate 12.5 mg twice a day, sodium chloride 0.9% a 1000 mL at 100 mL per hour, spironolactone 25 mg twice a day, and Ursodiol 300 mg twice a day. LABORATORY DATA: Reviewed. WBC of 4.5, RBC 2.87, hemoglobin 9.3, hematocrit 26.6, and platelets 68. Sodium 128, potassium 4.5, chloride 101, carbon dioxide 23, anion gap of 8, BUN 25, creatinine 0.6, GFR greater than 60, POC glucose 96, random glucose 89 and calcium 8. Urine nitrite small and urine leukocyte esterase small. Chest x-ray shows no active pulmonary disease, subsegmental atelectasis in the left lung base. Superimposed pneumonia cannot be entirely ruled out. IMPRESSION AND PLAN: Chronic obstructive lung disease, obstructive sleep apnea syndrome, cardiomyopathy with severe valvular heart disease, coronary artery disease, pulmonary hypertension, cryptogenic cirrhotic liver, portal thrombus, lymphedema, history of lower extremity cellulitis, esophagitis, gastritis, duodenitis, vertebral fracture, malnutrition, degenerative joint disease, altered mental status, activities of daily living dysfunction and severe aortic stenosis. The patient refusing continuous positive airway pressure machine, continue to encourage continuous positive airway pressure use at bedtime. Head of bed elevated at 45 degrees and sleep apnea precaution. Continue inhaled bronchodilators, sequential compression devices to bilateral lower extremities for deep venous thrombosis, gastric prophylaxis, antibiotics per Infectious Disease. The patient will benefit from physical therapy. The patient had blood cultures and urine culture done yesterday. We will followup. We will order a procalcitonin level to be done today. Careful with sedation. This patient was seen and examined with Dr. Cantor. Discussed assessment and plan as described above. Thank you for this consult. We will follow with you. Alec Marie APN Pablo Cantor MD ARACELI
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
[2018-08-23] MEDS: Levalbuterol 0.63 MG/3 ML Inhal Soln UD IH SCH ×3 (08:06→19:49)
[2018-08-23] MEDS: Insulin Reg-LOW-Coverage SC SCH ×4 (08:18→22:00)
--- NOTE | 2018-08-23 08:53 | CP.PCM.PN ---
Subjective - Date & Time of Evaluation Date of Evaluation: 08/23/18 Time of Evaluation: 08:49 - Subjective Subjective: PGY-2 heme/onc progress note No acute events noted overnight. Comfortable in bed, no fevers, no leg pain, no nausea, no diarrhea, no cough, no SOB at rest. AAOx2. Objective - Vital Signs/Intake and Output Vital Signs (last 24 hours): Temp Pulse Resp BP Pulse Ox 98.4 F 74 18 126/78 96 08/23/18 06:00 08/23/18 06:00 08/23/18 06:00 08/23/18 06:00 08/23/18 06:00 Intake and Output: 08/23/18 08/23/18 06:59 18:59 Intake Total 2999 Balance 2999 - Medications Medications: Current Medications Acetaminophen (Tylenol 325mg Tab) 650 mg PO Q6H PRN PRN Reason: Pain, moderate (4-7) Last Admin: 08/22/18 05:52 Dose: 650 mg Acetaminophen (Tylenol 650 Mg Supp) 650 mg RC Q6 PRN PRN Reason: temperature 99.4 OR HIGHER Last Admin: 08/22/18 11:56 Dose: 650 mg Calcium/Vitamin D (Oscal-D 250 Mg-125 Units Tab) 1 tab PO DAILY [facility] Last Admin: 08/22/18 10:15 Dose: Not Given Famotidine (Pepcid) 20 mg PO DAILY [facility] Last Admin: 08/22/18 10:15 Dose: Not Given Furosemide (Lasix) 20 mg PO BID [facility] Last Admin: 08/22/18 22:12 Dose: Not Given Cefepime HCl (Maxipime 1gm) 1 gm in 100 mls @ 100 mls/hr IVPB Q12 [facility]; Protocol Last Admin: 08/22/18 22:13 Dose: 100 mls/hr Sodium Chloride (Sodium Chloride 0.9%) 1,000 mls @ 100 mls/hr IV .Q10H [facility] Last Admin: 08/23/18 00:00 Dose: 100 mls/hr Insulin Human Regular (Humulin R Low) 0 units SC ACHS [facility]; Protocol Last Admin: 08/23/18 08:18 Dose: Not Given Lactulose (Enulose) 30 gm PO BID [facility] Last Admin: 08/22/18 17:43 Dose: 30 gm Levalbuterol HCl (Xopenex) 0.63 mg IH TIDRESP [facility] Last Admin: 08/23/18 08:06 Dose: Not Given Lidocaine (Lidoderm) 1 ea TD DAILY [facility] Last Admin: 08/22/18 10:13 Dose: 1 ea Metoprolol Tartrate (Lopressor) 12.5 mg PO BID [facility] Last Admin: 08/22/18 18:29 Dose: 12.5 mg Rifaximin (Xifaxan) 550 mg PO BID [facility]; Protocol Last Admin: 08/22/18 17:44 Dose: 550 mg Spironolactone (Aldactone) 25 mg PO BID [facility] Last Admin: 08/22/18 18:28 Dose: 25 mg Ursodiol (Actigall) 300 mg PO BID [facility] Last Admin: 08/22/18 17:46 Dose: 300 mg - Labs Labs: 08/22/18 07:00 08/22/18 07:00 PT 13.5 SECONDS (9.4-12.5) H 08/09/18 07:35 INR 1.17 08/09/18 07:35 APTT 36.0 Seconds (25.1-36.5) 08/04/18 21:45 - Additional Findings Additional findings: - Constitutional Appears: Non-toxic, No Acute Distress - Head Exam Head Exam: NORMAL INSPECTION, NORMOCEPHALIC - Eye Exam Eye Exam: Normal appearance Pupil Exam: NORMAL ACCOMODATION - ENT Exam ENT Exam: Mucous Membranes Dry - Respiratory Exam Respiratory Exam: Decreased Breath Sounds, NORMAL BREATHING PATTERN - Cardiovascular Exam Cardiovascular Exam: +S1, +S2 - GI/Abdominal Exam GI & Abdominal Exam: Soft, Normal Bowel Sounds - Extremities Exam Extremities Exam: Full ROM - Neurological Exam Neurological Exam: Alert, Awake - Psychiatric Exam Psychiatric exam: Normal Affect, Normal Mood - Skin Skin Exam: Dry, Normal Color, Warm Assessment and Plan - Assessment and Plan (Free Text) Plan: Mr. Killian nik 78 y/o woman with pmhx significant for cryptogenic cirhosis, DM, COPD, dementia; CHF; admitted with generalized fatigue, hypokalemia and LE celullitis infection. Hematology consulted regarding thromboctyopenia. Thrombocytopenia -Ddx likely secondary to cirrhosis vs sepsis physiology -Plts was stable/improving but in last few days has been downtrending * this platelet dip is correlated with fever 2 days ago -infectious workup ongoing We will sign off at this time. Please re-consult if necessary. Thank you. Case discussed with Dr Peña
--- NOTE | 2018-08-23 10:47 | CP.PCM.CON ---
History of Present Illness - History of Present Illness History of Present Illness: Palliative consult requested by Dr Chioma Rg Reason: Goals of care and advance care planning 78 year old female with history of DM, CHF and HTN who presented to ER on 08/04 with weakness. Found to have severe hypokalemia, hyponatremia, elevated ammonia levels, UTI,severe aortic stenosis , positive troponin. She denied fever chills, nausea, vomiting, cheat/abdominal pain, headache, dizziness, Chest X ray: EKG: SR with PVC's.left axis devaion, RBBB, LVH Abdominal CT 08/04: Hepatic cirrhosis, focal partial thrombus within main portal. prominent gastric renal shunt without gastrohepatic varices. Left sided pelvic congestion. Repeat Abdominal CT 08/19 no new findings MRCP 08/05: Severely dilated proximal common duct likely due to stricture, dilated pancreatic duct. Probable cirrhosis with portal hypertension, splenic varices. Lumbar spine: 08/05: disc bulging with posterior ridging at L3-L4 with arthr opathy and central canal stenosis,L4-L5, arthropathy and stenosis. Multiple compression fractures of T 12, L1,L2 and L3. Head CT: Stable neuro degenerative changes, no acute findings. PMHx: HTN,DM, CHF,cryptogenic cirrhosis, cellulitis,thrombocytopenia. PSHx:PCI angioplasty, aortic valve replacement. Social History: Former smoker, no alcohol or drug use. Lives alone Family History: Non contributory Review of Systems: Altered mental status, weakness, denies all other complaints, 10 point ROS otherwise negative Past Patient History - Infectious Disease Hx of Infectious Diseases: None - Tetanus Immunizations Tetanus Immunization: Up to Date - Past Medical History & Family History Past Medical History?: Yes - Past Social History Smoking Status: Never Smoked - CARDIAC Hx Cardiac Disorders: Yes Hx Congestive Heart Failure: Yes - PULMONARY Hx Respiratory Disorders: Yes Hx Chronic Obstructive Pulmonary Disease (COPD): Yes - NEUROLOGICAL Hx Neurological Disorder: Yes Hx Dementia: Yes - HEENT Hx HEENT Problems: Yes Hx Cataracts: Yes - RENAL Hx Chronic Kidney Disease: Yes Other/Comment: urinary bladder infection - ENDOCRINE/METABOLIC Hx Diabetes Mellitus Type 2: Yes - HEMATOLOGICAL/ONCOLOGICAL Hx Blood Disorders: Yes Hx Anemia: Yes - INTEGUMENTARY Hx Dermatological Problems: Yes Other/Comment: cellulitis BLE - MUSCULOSKELETAL/RHEUMATOLOGICAL Hx Musculoskeletal Disorders: Yes Hx Falls: Yes Hx Fractures: Yes - GASTROINTESTINAL Hx Gastrointestinal Disorders: Yes Other/Comment: gastritis - GENITOURINARY/GYNECOLOGICAL Hx Incontinence: Yes - PSYCHIATRIC Hx Psychophysiologic Disorder: Yes Hx Depression: Yes Hx Substance Use: No - SURGICAL HISTORY Hx Surgeries: Yes Hx Cardiac Catheterization: Yes Hx Cholecystectomy: Yes Hx Coronary Stent: Yes - ANESTHESIA Hx Anesthesia: Yes Meds Allergies/Adverse Reactions: Allergies Allergy/AdvReac Type Severity Reaction Status Date / Time antibiotic Allergy URTICARIA Uncoded 05/21/18 15:55 - Medications Medications: Current Medications Acetaminophen (Tylenol 325mg Tab) 650 mg PO Q6H PRN PRN Reason: Pain, moderate (4-7) Last Admin: 08/22/18 05:52 Dose: 650 mg Acetaminophen (Tylenol 650 Mg Supp) 650 mg RC Q6 PRN PRN Reason: temperature 99.4 OR HIGHER Last Admin: 08/22/18 11:56 Dose: 650 mg Calcium/Vitamin D (Oscal-D 250 Mg-125 Units Tab) 1 tab PO DAILY [facility] Last Admin: 08/22/18 10:15 Dose: Not Given Famotidine (Pepcid) 20 mg PO DAILY [facility] Last Admin: 08/22/18 10:15 Dose: Not Given Furosemide (Lasix) 20 mg PO BID [facility] Last Admin: 08/22/18 22:12 Dose: Not Given Cefepime HCl (Maxipime 1gm) 1 gm in 100 mls @ 100 mls/hr IVPB Q12 [facility]; Protocol Last Admin: 08/22/18 22:13 Dose: 100 mls/hr Sodium Chloride (Sodium Chloride 0.9%) 1,000 mls @ 100 mls/hr IV .Q10H [facility] Last Admin: 08/23/18 00:00 Dose: 100 mls/hr Insulin Human Regular (Humulin R Low) 0 units SC ACHS [facility]; Protocol Last Admin: 08/23/18 08:18 Dose: Not Given Lactulose (Enulose) 30 gm PO BID [facility] Last Admin: 08/22/18 17:43 Dose: 30 gm Levalbuterol HCl (Xopenex) 0.63 mg IH TIDRESP [facility] Last Admin: 08/23/18 08:06 Dose: Not Given Lidocaine (Lidoderm) 1 ea TD DAILY [facility] Last Admin: 08/22/18 10:13 Dose: 1 ea Metoprolol Tartrate (Lopressor) 12.5 mg PO BID [facility] Last Admin: 08/22/18 18:29 Dose: 12.5 mg Rifaximin (Xifaxan) 550 mg PO BID [facility]; Protocol Last Admin: 08/22/18 17:44 Dose: 550 mg Spironolactone (Aldactone) 25 mg PO BID [facility] Last Admin: 08/22/18 18:28 Dose: 25 mg Ursodiol (Actigall) 300 mg PO BID [facility] Last Admin: 08/22/18 17:46 Dose: 300 mg Physical Exam - Constitutional Appears: Chronically Ill - Head Exam Head Exam: NORMAL INSPECTION - Eye Exam Eye Exam: Normal appearance, PERRL - ENT Exam ENT Exam: Mucous Membranes Moist - Neck Exam Neck exam: Positive for: Normal Inspection - Respiratory Exam Respiratory Exam: Decreased Breath Sounds, NORMAL BREATHING PATTERN - Cardiovascular Exam Cardiovascular Exam: REGULAR RHYTHM, +S1, +S2 - GI/Abdominal Exam GI & Abdominal Exam: Normal Bowel Sounds, Soft Additional comments: no tenderness - Extremities Exam Extremities exam: Positive for: normal capillary refill - Back Exam Back exam: NORMAL INSPECTION, vertebral tenderness - Neurological Exam Neurological exam: Altered - Skin Skin Exam: Dry, Pallor, Petechiae - Additional Findings Additional findings: Palliative performance scale rating 30 % Results - Vital Signs Recent Vital Signs: Last Vital Signs Temp 98.4 F 08/23/18 06:00 Pulse 74 08/23/18 06:00 Resp 18 08/23/18 06:00 BP 126/78 08/23/18 06:00 Pulse Ox 96 08/23/18 06:00 - Labs Result Diagrams: 08/22/18 07:00 08/22/18 07:00 Labs: Laboratory Results - last 24 hr 08/22/18 08/22/18 08/22/18 12:09 13:40 18:04 POC Glucose (mg/dL) 101 154 H Procalcitonin 0.17 L 08/22/18 08/23/18 21:10 07:13 POC Glucose (mg/dL) 133 H 71 Procalcitonin Assessment & Plan - Assessment and Plan (Free Text) Assessment: 78 year old female with hsity of HTN, DM,CHF aortic stenosis, cryptogenic cirrhosis, thrombocytopena, deconditioning who is admitted with hyponatremia, hyperkalemia, elevated ammonia,elevated tropinins, altered mental status, The patient is alert, altered. Denies all complaints. Unwilling to engage in conversation. I spoke with patient sonTimothy at length regarding goals of care and advance care planning. SonTimothy states that he is aware of most mothers medical comorbidities but unsure of prognosis. He admits that his mother insisted on her independence and did not share her health situation with him. He recognizes that she seriously ill and not able care for her self. Once medically clear he intends to take her to his home to live. He states that she has and Advanced Directive and that he is her POA. He shared that she wants to be DNR/DNI. I encouraged him to complete a POLST so that DNR/DNI could be put in place today. He is hesitant to do so. He is hopeful that her mental status will clear so that goals of care can be discussed with her as well. We have a tentative meeting scheduled for tomorrow morning, intent continue goals of care and advance care planning. Time spent with son in goals of care and advance care planning, 45 minutes Plan: Goals of care and advance care planning AMS /hepatic encephalopahty> elevated ammonia levels> continue Lactulose Xifaxin. Psych eval pending Cardiology recs reviewed,continue Lasix,Metoprolol,Aldactone UTI: Vancomycin Deconditioning: PT/OT
[2018-08-23] MEDS: Lidocaine 5% Patch TD SCH (11:12)
[2018-08-23] MEDS: Cefepime 1gm in NS 100ml 1 GM/100 ML BAG IVPB SCH (11:19)
[2018-08-23] MEDS: Calcium-Vit D 250 mg-125 Units Tab UD PO SCH (11:20)
[2018-08-23] MEDS: Sodium Chloride 0.9% 1,000 ML IV SCH ×2 (11:24)
--- NOTE | 2018-08-23 11:54 | CP.PCM.PN ---
<Timothy Yang - Last Filed: 08/23/18 11:49> Subjective - Date & Time of Evaluation Date of Evaluation: 08/23/18 Time of Evaluation: 08:30 - Subjective Subjective: PGY-4 GI Fellow Prog Note Pt lying in bed when seen this AM. Son at bedside. Pt states no complaints able to states location and said date was Aug 18, 2018. She just said she is eager to eat breakfast. 5 point ROS negative other than stated above Objective - Vital Signs/Intake and Output Vital Signs (last 24 hours): Temp Pulse Resp BP Pulse Ox 98.4 F 67 18 108/51 L 96 08/23/18 06:00 08/23/18 11:20 08/23/18 06:00 08/23/18 11:20 08/23/18 06:00 Intake and Output: 08/23/18 08/23/18 06:59 18:59 Intake Total 2999 Balance 2999 - Medications Medications: Current Medications Acetaminophen (Tylenol 325mg Tab) 650 mg PO Q6H PRN PRN Reason: Pain, moderate (4-7) Last Admin: 08/22/18 05:52 Dose: 650 mg Acetaminophen (Tylenol 650 Mg Supp) 650 mg RC Q6 PRN PRN Reason: temperature 99.4 OR HIGHER Last Admin: 08/22/18 11:56 Dose: 650 mg Calcium/Vitamin D (Oscal-D 250 Mg-125 Units Tab) 1 tab PO DAILY [facility] Last Admin: 08/23/18 11:20 Dose: 1 tab Famotidine (Pepcid) 20 mg PO DAILY [facility] Last Admin: 08/23/18 11:20 Dose: 20 mg Furosemide (Lasix) 20 mg PO BID [facility] Last Admin: 08/23/18 11:19 Dose: 20 mg Cefepime HCl (Maxipime 1gm) 1 gm in 100 mls @ 100 mls/hr IVPB Q12 [facility]; Protocol Last Admin: 08/23/18 11:19 Dose: 100 mls/hr Sodium Chloride (Sodium Chloride 0.9%) 1,000 mls @ 100 mls/hr IV .Q10H [facility] Last Admin: 08/23/18 11:24 Dose: 100 mls/hr Insulin Human Regular (Humulin R Low) 0 units SC ACHS [facility]; Protocol Last Admin: 08/23/18 08:18 Dose: Not Given Lactulose (Enulose) 30 gm PO BID [facility] Last Admin: 08/23/18 11:22 Dose: 30 gm Levalbuterol HCl (Xopenex) 0.63 mg IH TIDRESP [facility] Last Admin: 08/23/18 08:06 Dose: Not Given Lidocaine (Lidoderm) 1 ea TD DAILY [facility] Last Admin: 08/23/18 11:12 Dose: 1 ea Metoprolol Tartrate (Lopressor) 12.5 mg PO BID [facility] Last Admin: 08/23/18 11:20 Dose: 12.5 mg Rifaximin (Xifaxan) 550 mg PO BID [facility]; Protocol Last Admin: 08/23/18 11:19 Dose: 550 mg Spironolactone (Aldactone) 25 mg PO BID [facility] Last Admin: 08/22/18 18:28 Dose: 25 mg Ursodiol (Actigall) 300 mg PO BID [facility] Last Admin: 08/23/18 11:20 Dose: 300 mg - Labs Labs: 08/22/18 07:00 08/22/18 07:00 PT 13.5 SECONDS (9.4-12.5) H 08/09/18 07:35 INR 1.17 08/09/18 07:35 APTT 36.0 Seconds (25.1-36.5) 08/04/18 21:45 - Constitutional Appears: No Acute Distress, Chronically Ill - Head Exam Head Exam: ATRAUMATIC, NORMAL INSPECTION - ENT Exam ENT Exam: Mucous Membranes Dry. absent: Mucous Membranes Moist - Respiratory Exam Respiratory Exam: NORMAL BREATHING PATTERN. absent: Accessory Muscle Use, Respiratory Distress - GI/Abdominal Exam GI & Abdominal Exam: Distended (mildly), Soft, Normal Bowel Sounds. absent: Bruit, Firm, Guarding, Rigid, Tenderness, Mass, Organomegaly, Pulsatile Mass Assessment and Plan - Assessment and Plan (Free Text) Assessment: 78 yo WF with multiple comorbities including cirrhosis, CAD, Pulm HTN, COPD, Aortic Stenosis sent in from senior care for weakness and hypokalemia. 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 Suspect Cardiac or PAULA. Increased bilirubin is concerning from 2s to 8.2 on admission, INR 1.42 on admission with MELD-Na 20. - PVT: Seen on admission CT, Doppler did not reveal any thrombus. Abd Doppler reviewed: No obvious thrombus, patent vessels. Splenomegaly with varices. MRCP with Abd MRI reviewed with severe dilation of proximal CBD 16mm and normal distal CBD 3mm possibly due to CBD stricture. Pt is extremely high risk for complications with ERCP/EUS with extensive co-morbidities. Cardiology consulted and agree pt very high risk. - EV: Last EGD 4 yrs ago, unknown results - HCC: No masses seen on admission CT - Ascites: On Spironolactone and Furoseide though not in typical ratio - Hepatic Encephalopathy: Fluctuating level of consciousness, overall if consistenting stooling 3-4 BMs seems to be improved, # CHF, CAD, Pulm HTN, Right sided CHF, Severe # COPD # H/o Colonic AVMs Plan: - Cont Ursodiol - Low Na diet - Cont diuretics - Cont lactulose BID, Rifaxamin BID for HE - Prognosis very guarded given multiple severe comorbid illness --- Agree with goals of care discussion Pt seen and examined with Dr. Freitas; please see attestation for further recs/changes <Stewart Freitas V - Last Filed: 08/23/18 23:14> Objective - Vital Signs/Intake and Output Vital Signs (last 24 hours): Temp Pulse Resp BP Pulse Ox 98 F 64 18 96/48 L 96 08/23/18 17:59 08/23/18 17:59 08/23/18 17:59 08/23/18 17:59 08/23/18 06:00 Intake and Output: 08/23/18 08/24/18 18:59 06:59 Intake Total 540 1244 Balance 540 1244 - Medications Medications: Current Medications Calcium/Vitamin D (Oscal-D 250 Mg-125 Units Tab) 1 tab PO DAILY [facility] Last Admin: 08/23/18 11:20 Dose: 1 tab Famotidine (Pepcid) 20 mg PO DAILY [facility] Last Admin: 08/23/18 11:20 Dose: 20 mg Furosemide (Lasix) 20 mg PO BID [facility] Last Admin: 08/23/18 17:59 Dose: Not Given Sodium Chloride (Sodium Chloride 0.9%) 1,000 mls @ 100 mls/hr IV .Q10H [facility] Last Admin: 08/23/18 11:24 Dose: 100 mls/hr Vancomycin HCl (Vancomycin 1gm) 1 gm in 250 mls @ 167 mls/hr IVPB Q12H [facility]; Protocol Last Admin: 08/23/18 17:55 Dose: 167 mls/hr Insulin Human Regular (Humulin R Low) 0 units SC ACHS [facility]; Protocol Last Admin: 08/23/18 17:43 Dose: Not Given Lactulose (Enulose) 30 gm PO BID [facility] Last Admin: 08/23/18 17:54 Dose: 30 gm Levalbuterol HCl (Xopenex) 0.63 mg IH TIDRESP [facility] Last Admin: 08/23/18 19:49 Dose: Not Given Lidocaine (Lidoderm) 1 ea TD DAILY [facility] Last Admin: 08/23/18 11:12 Dose: 1 ea Metoprolol Tartrate (Lopressor) 12.5 mg PO BID [facility] Last Admin: 08/23/18 18:00 Dose: Not Given Nystatin (Nystop Topical Powder) 0 gm TOP BID [facility] Rifaximin (Xifaxan) 550 mg PO BID [facility]; Protocol Last Admin: 08/23/18 17:58 Dose: 550 mg Spironolactone (Aldactone) 25 mg PO BID [facility] Last Admin: 08/23/18 17:59 Dose: Not Given Ursodiol (Actigall) 300 mg PO BID [facility] Last Admin: 08/23/18 17:58 Dose: 300 mg - Labs Labs: 08/22/18 07:00 08/22/18 07:00 PT 13.5 SECONDS (9.4-12.5) H 08/09/18 07:35 INR 1.17 08/09/18 07:35 APTT 36.0 Seconds (25.1-36.5) 08/04/18 21:45 Attending/Attestation - Attestation I have personally seen and examined this patient.: Yes I have fully participated in the care of the patient.: Yes I have reviewed all pertinent clinical information, including history, physical exam and plan: Yes Notes (Text): This is an addendum to GI progress report dictated by the GI Fellow. The patient was seen and examined earlier. Medical records, lab studies, imagings w ere reviewed. Last 24 hours events reviewed. Agreed with the above treatment plan as outlined in GI Fellow 's notes with the addition of the following Discussed at length with the patient's son Discussed with Dr. Eagle field education director today Doni he had discussed with the patient's son regarding overall prognosis of this patient with multiple medical comorbidities Advanced directive were also discussed Started also on Xifaxan for hepatic encephalopathy chronic management 08/23/18 23:09
--- NOTE | 2018-08-23 12:29 | PN ---
DATE: 08/22/2018 SUBJECTIVE: The patient was seen and examined at bedside on 08/22/2018. The patient is looking comfortable. No fever, no chills. No hematuria, no hematochezia. No headache, no dizziness. No chest pain, no palpitation. The patient looks like a bit lethargic. PHYSICAL EXAMINATION: VITAL SIGNS: Blood pressure 120/50, pulse 82, temperature 98.6, oxygen saturation 98%. HEENT: Head normocephalic and atraumatic. Eyes PERRLA. Extraocular muscles intact. Conjunctivae clear. Nose patent. Mucous membranes moist. NECK: Supple. No carotid bruit. No JVD or thyromegaly. CHEST: Bilateral symmetrical. HEART: S1 and S2 positive. LUNGS: Clear to auscultation. ABDOMEN: Soft. Bowel sounds present. No organomegaly. EXTREMITIES: Trace edema. NEUROLOGIC: The patient is lethargic, obeying simple orders. MEDICATIONS: Tylenol, Os-Cristo, Pepcid, Lasix, insulin, lactulose, Xopenex, Lidoderm, metoprolol, sodium chloride, spironolactone, ursodiol. LABORATORY DATA: White blood cell is 4.5, hemoglobin 9.3, hematocrit 26.6, platelets noted . Sodium 128, potassium 4.5, BUN 25, creatinine 0.6, glucose 96. ASSESSMENT AND PLAN: Ms. Maria D Sullivan is a 78-year-old female with multiple medical problems, history of atrial fibrillation, tachycardia, on metoprolol; chronic obstructive pulmonary disease, obstructive sleep apnea syndrome, cardiomyopathy, severe valvular heart disease, refused surgery, coronary artery disease, pulmonary hypertension, cryptogenic cirrhotic liver, portal hypertension, portal thrombosis, lymphedema, esophagitis, gastritis, duodenitis, vertebral fracture, degenerative joint disease. Continue bronchodilators, sequential compression devices. The patient will benefit from doing physical therapy. Discussion done with son. History of hepatic encephalopathy. We will follow. Kristin Rg MD [facility] [place] DIVISIONJeromy
--- NOTE | 2018-08-23 14:28 | PN ---
DATE: 05/23/2019 PULMONARY PROGRESS NOTE REFERRING PHYSICIAN: Kristin Rg MD SUBJECTIVE: The patient is lying in bed asleep, but arousable. Family is at bedside, no acute distress. No overnight events reported. No hemoptysis, hematosis, hematuria, diarrhea, leg swelling reported. OBJECTIVE GENERAL: No acute distress. VITAL SIGNS: Blood pressure 100/145, pulse 67, temperature 98.5, oxygen saturation 96. HEENT: Moist mucous membranes. Crowded airway. NECK: Supple. No JVD. CARDIOPULMONARY: S1 and S2 audible. Positive murmur. LUNGS: Few rhonchi bilaterally. ABDOMEN: Soft, nontender. No distension. No organomegaly. EXTREMITIES: No bilateral lower extremity edema. NEUROLOGIC: Asleep but arousable. MEDICATIONS: Reviewed Os-Cristo 1 tab daily, cefepime 1 g every 12 hours, Pepcid 20 mg daily, Lasix 20 mg twice a day, Humulin R sliding scale a.c. at bedtime, lactulose 30 mg twice a day, Xopenex 0.63 mg inhalation 3 times a day, Lidoderm patch topically daily to affected area, metoprolol titrate 12.5 ,g twice a day, Xifaxan 550 mg, twice a day, sodium chloride 0.9%, 1000 mL and 100 mL/hours, Aldactone 25 mg twice a day, ursodiol 300 mg twice a day. LABORATORY DATA: Reviewed, POC glucose 137. IMPRESSION: 1. Chronic obstructive lung disease. 2. Obstructive sleep apnea syndrome. 3. Cardiomyopathy with severe valvular heart disease. 4. Coronary artery disease. 5. Pulmonary hypertension. 6. Cryptogenic cirrhotic liver. 7. Portal thrombus. 8. Lymphedema. 9. History of lower extremity cellulitis. 10. Esophagitis, gastritis, duodenitis. 11. Vertebral fracture. 12. Malnutrition. 12. Degenerative joint disease. 14. Altered mental status. 15. Activity of daily living dysfunction. 16. Urinary tract infection. PLAN: The patient refusing CPAP machine. We will continue encourage CPAP use at bedtime. Head of bed elevated 45 degrees. Sleep apnea precaution. Continue inhaled bronchodilators, SCDs to bilateral lower extremities for deep vein thrombosis. The patient does suffer from thrombocytopenia and has history of epistasis. Gastric prophylaxis. Antibiotics per Infectious Disease. The patient will benefit from physical therapy. Procalcitonin is negative at 0.17 ruling out pneumonia, careful with sedation. This patient was seen and examined with Dr. Cantor. Discussed assessment and plan as described above. Thank you for this consult and we will follow with you. Alec Marie APN Pablo Cantor MD [facility]
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
[2018-08-23] MEDS: Vancomycin 1gm in NS 250ml 1 GM/250 ML BAG IVPB SCH (17:55)
--- NOTE | 2018-08-23 21:38 | PN ---
DATE: 08/23/2018 REASON FOR CONSULTATION: Cardiac evaluation, admitted with severe hypokalemia, generalized weakness, history of severe critical aortic stenosis, history of PTCA for RCA. This note is in addition to dictated by nurse, Deisi Nair. The patient's son beneath the bedside discussed in length about the patient's condition and prognosis. He says that he has a living will and does not want to be resuscitated. We will discuss with Dr. Rg and convey the patient. The son says that he is going to discuss with case hardener as well. For now, continue medical treatment including diabetes as the blood pressure is tolerated. Continue spironolactone. Monitor potassium. Continue low-dose beta kirby. We will follow with you. Thank you Dr. Rg for providing us the opportunity in taking care of the patient, Maria D Sullivan. Overall, the patient's critical long-term prognosis is extremely guarded. Pablo Guillermo MD
--- NOTE | 2018-08-24 02:23 | CON ---
DATE: 08/23/2018 This magazine writer attempted to speak to the patient, but the patient seems to be irritable and mildly agitated. The patient's son who presented himself as Timothy Sullivan reported that he is power of border measurer and cutter. When this magazine writer introduced herself, the patient's son became upset and said that he has not allowed primary care team to call for a psychiatric evaluation. This magazine writer briefly asked son if any concerns that he has about the patient's presentation. The patient's son said that his mother has a lot of medical issues. She does not have any history of mental illness and he is disagreeing with this magazine writer to be involved into the patient care. From this magazine writer perspective, we will speak to the primary care team. This magazine writer obtained collateral information from the nursing staff. The patient had altered mental status after a dose of Ativan. The patient had prolonged sleepiness. This magazine writer will suggest either to decrease the dose of Ativan or discontinue it. Meanwhile, I will respect the power of border measurer and cutter decision, but still if the patient meets the criteria to see a psychiatrist, I will be more than happy to come back and reevaluate the patient, but at present moment, we will respect family and the patient's request. Meanwhile, labs reviewed. Medications reviewed. MENTAL STATUS: This magazine writer was not able to assess. PLAN: We will re-consult as needed. We will speak to the medical team. If the patient meets the criteria to see psychiatrist, I will be more than happy to see this patient again. Thank you very much. Mercedez Tracey MD
[2018-08-24] MEDS: Vancomycin 1gm in NS 250ml 1 GM/250 ML BAG IVPB SCH (03:14)
[2018-08-24] MEDS: Sodium Chloride 0.9% 1,000 ML IV SCH ×2 (03:16→12:23)
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
[2018-08-24] MEDS: Insulin Reg-LOW-Coverage SC SCH ×4 (07:53→23:00)
[2018-08-24] MEDS: Levalbuterol 0.63 MG/3 ML Inhal Soln UD IH SCH ×3 (08:12→19:38)
[2018-08-24] MEDS: Lidocaine 5% Patch TD SCH (09:35)
[2018-08-24] MEDS: Nystatin 100,000 Units/gm Topical Pow(15 gm) TOP SCH ×2 (09:36→18:09)
[2018-08-24] MEDS: Calcium-Vit D 250 mg-125 Units Tab UD PO SCH (09:36)
[2018-08-24] MEDS ORDERED: DAPTOmycin 500 mg Inj (Cubicin) IV SCH (11:00)
--- NOTE | 2018-08-24 11:02 | PN ---
DATE: 08/24/2018 REASON FOR CONSULTATION: Followup, cardiac evaluation and followup positive troponin on admission, generalized weakness, failure to thrive, history of severe aortic stenosis, refused TAVR, cryptogenic cirrhosis. The patient is relatively stable. This note in addition to dictated by nurse practitioner, Deisi Nair. Continue medical treatment. Discussed with the son yesterday to make her DNR. Social was working. We will follow. No plan for aggressive workup. Pablo Guillermo MD
--- NOTE | 2018-08-24 11:32 | PN ---
DATE: 08/24/2018 REASON FOR CONSULTATION: Followup cardiac evaluation and followup positive troponin on admission, generalized weakness, failure to thrive, history of severe aortic stenosis, refused TAVR, cryptogenic cirrhosis. The patient is relatively stable. This note is in addition to dictated by nurse practitioner, Deisi Nair. RECOMMENDATION: Continue medical treatment. Discussed with the son yesterday to make her DNR. family service caseworker is working. We will follow. Aggressive medical treatment. No plan for aggressive workup. Pablo Guillermo MD [facility]
--- NOTE | 2018-08-24 12:09 | PN ---
DATE: 08/24/2018 PULMONARY PROGRESS NOTE REFERRING PHYSICIAN: Kristin Rg MD. SUBJECTIVE: The patient is sitting up in bed. Son is at bedside. No acute distress. No overnight events reported. No headache, rhinitis, cough, shortness of breath, chest pain, abdominal pain, nausea, vomiting, diarrhea, leg pain, leg swelling reported. OBJECTIVE: GENERAL: No acute distress. VITAL SIGNS: Blood pressure 123/56, pulse 82, temperature 98. HEENT: Moist mucous membranes. Crowded airway. NECK: Supple. No JVD. CARDIOVASCULAR: S1 and S2 audible. Positive murmur. LUNGS: Few scattered rhonchi bilaterally. ABDOMEN: Soft and nontender. No distention. No organomegaly. EXTREMITIES: No bilateral lower extremity edema. NEUROLOGIC: Awake, alert, and verbal. Follows commands. MEDICATIONS: Reviewed. Os-Cristo 1 tab daily, daptomycin 270 mg daily, Pepcid 20 mg daily, Lasix 20 mg twice a day, Humulin R sliding scale a.c. at bedtime, lactulose 30 g twice a day, Xopenex 0.63 mg inhalation 3 times a day, lidocaine patch topically daily to affected area, metoprolol tartarate 12.5 mg twice a day, nystatin topically twice a day to affected area, Xifaxan 550 mg twice a day, sodium chloride 0.9%, 1000 mL at 100 mL/hour, spironolactone 25 mg twice a day, Ursodiol 300 mg twice a day. LABORATORY DATA: Reviewed. POC glucose 89, ammonia level 15. Urine culture final VRE. IMPRESSION AND PLAN: Chronic obstructive lung disease, obstructive sleep apnea syndrome, cardiomyopathy with severe valvular heart disease, coronary artery disease, pulmonary hypertension, cryptogenic cirrhotic liver, portal thrombus, lymphedema, history of lower extremity cellulitis, esophagitis, bursitis, duodenitis, vertebral fracture, malnutrition, degenerative joint disease, altered mental status, activity of daily living function, urinary tract infection positive for vancomycin-resistant enterococcus. The patient refusing continuous positive airway pressure machine. Head of bed elevated at 45 degrees. Sleep apnea precaution. Continue to encourage continuous positive airway pressure use. Continue inhaled bronchodilators, gastric prophylaxis, antibiotics per Infectious Disease. The patient is at high risk for thromboembolic disease due to liver disease locally with cirrhotic liver. History of bleeding, sequential compression devices in use to bilateral lower extremities for deep venous thrombosis, pressure ulcer precaution. Son's questions answered. The patient will benefit from physical therapy. This patient was seen and examined with Dr. Cantor. Discussed assessment and plan as described above. Thank you for this consult and we will follow with you. Alec Marie APN Pablo Cantor MD [facility]
--- NOTE | 2018-08-24 12:38 | CP.PCM.PN ---
Subjective - Date & Time of Evaluation Date of Evaluation: 08/24/18 Time of Evaluation: 12:00 - Subjective Subjective: PGY-4 GI Fellow Prog Note Pt lying in bed when seen. States she is doing OK and prefers to be left alone. Repeatedly saying "have mercy." Recently informed that UCx is growing VRE. 5 point ROS negative other than stated above Objective - Vital Signs/Intake and Output Vital Signs (last 24 hours): Temp Pulse Resp BP Pulse Ox 97.8 F 73 20 118/56 L 96 08/24/18 12:00 08/24/18 12:00 08/24/18 12:00 08/24/18 12:00 08/23/18 06:00 Intake and Output: 08/24/18 08/24/18 06:59 18:59 Intake Total 1484 Balance 1484 - Medications Medications: Current Medications Calcium/Vitamin D (Oscal-D 250 Mg-125 Units Tab) 1 tab PO DAILY [facility] Last Admin: 08/24/18 09:36 Dose: 1 tab Famotidine (Pepcid) 20 mg PO DAILY [facility] Last Admin: 08/24/18 09:36 Dose: 20 mg Furosemide (Lasix) 20 mg PO BID [facility] Last Admin: 08/24/18 09:34 Dose: 20 mg Sodium Chloride (Sodium Chloride 0.9%) 1,000 mls @ 100 mls/hr IV .Q10H [facility] Last Admin: 08/24/18 12:23 Dose: 100 mls/hr Daptomycin 270 mg/ Sodium (Chloride) 100 mls @ 200 mls/hr IV Q24H [facility] Stop: 08/29/18 11:16 Last Admin: 08/24/18 12:27 Dose: 200 mls/hr Insulin Human Regular (Humulin R Low) 0 units SC ACHS [facility]; Protocol Last Admin: 08/24/18 12:27 Dose: Not Given Lactulose (Enulose) 30 gm PO BID [facility] Last Admin: 08/24/18 09:34 Dose: 30 gm Levalbuterol HCl (Xopenex) 0.63 mg IH TIDRESP [facility] Last Admin: 08/24/18 08:12 Dose: 0.63 mg Lidocaine (Lidoderm) 1 ea TD DAILY [facility] Last Admin: 08/24/18 09:35 Dose: Not Given Metoprolol Tartrate (Lopressor) 12.5 mg PO BID [facility] Last Admin: 08/24/18 09:36 Dose: 12.5 mg Nystatin (Nystop Topical Powder) 0 gm TOP BID [facility] Last Admin: 08/24/18 09:36 Dose: 2 units Rifaximin (Xifaxan) 550 mg PO BID [facility]; Protocol Last Admin: 08/24/18 09:37 Dose: 550 mg Spironolactone (Aldactone) 25 mg PO BID [facility] Last Admin: 08/24/18 09:32 Dose: Not Given Ursodiol (Actigall) 300 mg PO BID [facility] Last Admin: 08/24/18 09:34 Dose: 300 mg - Labs Labs: 08/22/18 07:00 08/22/18 07:00 PT 13.5 SECONDS (9.4-12.5) H 08/09/18 07:35 INR 1.17 08/09/18 07:35 APTT 36.0 Seconds (25.1-36.5) 08/04/18 21:45 - Constitutional Appears: No Acute Distress, Chronically Ill - Head Exam Head Exam: ATRAUMATIC, NORMAL INSPECTION - Eye Exam Eye Exam: EOMI, Scleral icterus - ENT Exam ENT Exam: Mucous Membranes Dry. absent: Mucous Membranes Moist - Respiratory Exam Respiratory Exam: NORMAL BREATHING PATTERN. absent: Accessory Muscle Use, Respiratory Distress - GI/Abdominal Exam GI & Abdominal Exam: Soft, Normal Bowel Sounds. absent: Bruit, Distended, Firm, Guarding, Rigid, Tenderness, Mass, Organomegaly, Pulsatile Mass, Rebound Assessment and Plan - Assessment and Plan (Free Text) Assessment: 78 yo WF with multiple comorbities including cirrhosis, CAD, Pulm HTN, COPD, Aortic Stenosis sent in from group home for weakness and hypokalemia. 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 Suspect Cardiac or PAULA. Increased bilirubin is concerning from 2s to 8.2 on admission, INR 1.42 on admission with MELD-Na 20. - PVT: Seen on admission CT, Doppler did not reveal any thrombus. Abd Doppler reviewed: No obvious thrombus, patent vessels. Splenomegaly with varices. MRCP with Abd MRI reviewed with severe dilation of proximal CBD 16mm and normal distal CBD 3mm possibly due to CBD stricture. Pt is extremely high risk for complications with ERCP/EUS with extensive co-morbidities. Cardiology consulted and agree pt very high risk. - EV: Last EGD 4 yrs ago, unknown results - HCC: No masses seen on admission CT - Ascites: On Spironolactone and Furoseide though not in typical ratio - Hepatic Encephalopathy: Fluctuating level of consciousness, overall if consistenting stooling 3-4 BMs seems to be improved, # CHF, CAD, Pulm HTN, Right sided CHF, Severe # COPD # H/o Colonic AVMs Plan: - Cont Ursodiol - Low Na diet - Cont diuretics - Cont lactulose BID, Rifaxamin BID for HE - Prognosis very guarded given multiple severe comorbid illness --- Agree with goals of care discussion Pt seen and examined with Dr. Freitas; please see attestation for further recs/changes
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
--- NOTE | 2018-08-24 16:00 | CP.PCM.PN ---
Subjective - Date & Time of Evaluation Date of Evaluation: 08/24/18 Time of Evaluation: 10:00 - Subjective Subjective: lethargic, confused Objective - Vital Signs/Intake and Output Vital Signs (last 24 hours): Temp Pulse Resp BP Pulse Ox 97.8 F 73 20 118/56 L 91 L 08/24/18 12:00 08/24/18 12:00 08/24/18 12:00 08/24/18 12:00 08/24/18 09:00 Intake and Output: 08/24/18 08/24/18 06:59 18:59 Intake Total 1484 Balance 1484 - Medications Medications: Current Medications Calcium/Vitamin D (Oscal-D 250 Mg-125 Units Tab) 1 tab PO DAILY [facility] Last Admin: 08/24/18 09:36 Dose: 1 tab Famotidine (Pepcid) 20 mg PO DAILY [facility] Last Admin: 08/24/18 09:36 Dose: 20 mg Furosemide (Lasix) 20 mg PO BID [facility] Last Admin: 08/24/18 09:34 Dose: 20 mg Sodium Chloride (Sodium Chloride 0.9%) 1,000 mls @ 100 mls/hr IV .Q10H [facility] Last Admin: 08/24/18 12:23 Dose: 100 mls/hr Daptomycin 270 mg/ Sodium (Chloride) 100 mls @ 200 mls/hr IV Q24H [facility] Stop: 08/29/18 11:16 Last Admin: 08/24/18 12:27 Dose: 200 mls/hr Insulin Human Regular (Humulin R Low) 0 units SC ACHS [facility]; Protocol Last Admin: 08/24/18 12:27 Dose: Not Given Lactulose (Enulose) 30 gm PO BID [facility] Last Admin: 08/24/18 09:34 Dose: 30 gm Levalbuterol HCl (Xopenex) 0.63 mg IH TIDRESP [facility] Last Admin: 08/24/18 13:25 Dose: 0.63 mg Lidocaine (Lidoderm) 1 ea TD DAILY [facility] Last Admin: 08/24/18 09:35 Dose: Not Given Metoprolol Tartrate (Lopressor) 12.5 mg PO BID [facility] Last Admin: 08/24/18 09:36 Dose: 12.5 mg Nystatin (Nystop Topical Powder) 0 gm TOP BID [facility] Last Admin: 08/24/18 09:36 Dose: 2 units Rifaximin (Xifaxan) 550 mg PO BID [facility]; Protocol Last Admin: 08/24/18 09:37 Dose: 550 mg Spironolactone (Aldactone) 25 mg PO BID [facility] Last Admin: 08/24/18 09:32 Dose: Not Given Ursodiol (Actigall) 300 mg PO BID [facility] Last Admin: 08/24/18 09:34 Dose: 300 mg - Labs Labs: 08/22/18 07:00 08/22/18 07:00 PT 13.5 SECONDS (9.4-12.5) H 08/09/18 07:35 INR 1.17 08/09/18 07:35 APTT 36.0 Seconds (25.1-36.5) 08/04/18 21:45 - Constitutional Appears: Chronically Ill - Eye Exam Eye Exam: Normal appearance - Respiratory Exam Respiratory Exam: Decreased Breath Sounds, NORMAL BREATHING PATTERN - Cardiovascular Exam Cardiovascular Exam: REGULAR RHYTHM, +S1, +S2 - GI/Abdominal Exam GI & Abdominal Exam: Soft, Normal Bowel Sounds - Extremities Exam Extremities Exam: Pedal Edema - Skin Skin Exam: Dry, Petechiae Assessment and Plan - Assessment and Plan (Free Text) Assessment: 78 year old female with history of CAD,HTNDM cryptogenic cirrhosis who is admitted with altered mental status,UTI, hepatic encephalopathy thrombocytopenia Patient's sons at bedside. Sons aware of patients diagnosis and reason for admission. Also discussed patient multiple medical comorbidities. Explained that prognosis was guarded. Advance care planning discussion revisited. Timothy did not bring a copy of patients advanced directive. I offered to complete a POLST directive form with him.. Son not ready to do POLST,states he will fax me a copy of patients advance directive. I explained that his mother would remain full code status until decision is made.Psychosocial support provided. Time sent with patients family in goals of care discussion, 20 minutes Plan: Goals of care and advance care palnnig Continue lactulose, Xifaxan. DM: Levemir HS, Humalog as ordered UTI: Continue Daptomycin Cardioogy: Lasix, Metoprolol, Aldactone
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
[2018-08-25] MEDS: Sodium Chloride 0.9% 1,000 ML IV SCH ×3 (05:40→18:58)
[2018-08-25] MEDS: Levalbuterol 0.63 MG/3 ML Inhal Soln UD IH SCH ×3 (07:03→21:10)
[2018-08-25] MEDS: Nystatin 100,000 Units/gm Topical Pow(15 gm) TOP SCH ×2 (10:00→17:06)
[2018-08-25] MEDS: Insulin Reg-LOW-Coverage SC SCH ×3 (11:19→22:25)
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
[2018-08-25] MEDS: Calcium-Vit D 250 mg-125 Units Tab UD PO SCH (11:32)
[2018-08-25] MEDS: Lidocaine 5% Patch TD SCH (11:33)
--- NOTE | 2018-08-25 22:48 | PN ---
DATE: 08/25/2018 PULMONARY PROGRESS NOTE REFERRING PHYSICIAN: Kristin Rg MD SUBJECTIVE: She is lying in the bed, head at 45 degrees, sleepy, and arousable. No headache. No rhinitis. No cough. No sputum production. No hemoptysis. No leg swelling and wants to go home. OBJECTIVE: GENERAL: In no acute distress. VITAL SIGNS: Temperature is 98, heart rate is 75, respiratory rate is 18, blood pressure is 112/59, and pulse ox is 100% on nasal cannula. HEENT: Dry mucous membrane. NECK: Supple. No JVD. LUNGS: Have a few scattered rhonchi. HEART: S1 and S2. Has a loud murmur. ABDOMEN: Soft and nontender. No organomegaly. EXTREMITIES: No edema. NEUROLOGIC: Sleepy, arousable, and follows simple command. MEDICATIONS: She is on Actigall 300 mg twice a day, Aldactone 25 mg twice a day, daptomycin 270 mg every 24 hours, lactulose 30 g p.o. twice a day, insulin coverage, Lasix 20 mg twice a day, metoprolol tartrate 12.5 mg twice a day, calcium plus vitamin D one tab daily, Pepcid 20 mg daily, IV flow normal saline 100 mL/hour, and Xopenex inhaler 3 times a day. LABORATORY DATA: Reviewed and noted. Blood sugar was 138 this morning. Urine culture has a VR enterococcus faecium. IMPRESSION AND PLAN: Chronic obstructive lung disease, obstructive sleep apnea syndrome, cardiomyopathy with severe valvular disease, coronary artery disease, pulmonary hypertension, cryptogenic cirrhotic liver, portal thrombus, history of lymphedema with history of recurrent lower extremity cellulitis, history of esophagitis, duodenitis, gastritis, history of vertebral compression fracture, malnutrition, on and off altered mental status, recurrent urinary tract infection, , vancomycin-resistant enterococcus infection, on antibiotics, and bronchodilators. Keep head at 45 degrees. Sleep apnea precaution. Avoid sedation. Overall poor prognosis. Careful with IV fluids. High risk for , pulmonary edema. Thank you and we will follow with you. Pablo Cantor MD
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
[2018-08-26] MEDS: Levalbuterol 0.63 MG/3 ML Inhal Soln UD IH SCH ×3 (08:54→21:35)
[2018-08-26 09:06] LABS: HEMOGLOBIN 9.9 g/dL (12.0-16.0); MEAN CORPUSCULAR HEMOGLOBIN 31.8 pg (25.0-35.0); MEAN CORPUSCULAR HGB CONC 34.6 g/dl (31.0-37.0); MEAN PLATELET VOLUME 8.4 fl (7.0-11.0); RBC 3.11 10^6/uL (3.5-6.1); RED CELL DISTRIBUTION WIDTH 17.9 % (11.5-14.5); WHITE BLOOD COUNT 2.8 10^3/uL (4.5-11.0)
[2018-08-26 09:30] LABS: BLOOD UREA NITROGEN 12 mg/dL (7-21); CALCIUM 7.2 mg/dL (8.4-10.5); GFR NON-AFRICAN AMERICAN > 60
[2018-08-26] MEDS: Insulin Reg-LOW-Coverage SC SCH ×4 (09:43→22:12)
[2018-08-26] MEDS: Nystatin 100,000 Units/gm Topical Pow(15 gm) TOP SCH ×2 (09:48→17:45)
[2018-08-26] MEDS: Calcium-Vit D 250 mg-125 Units Tab UD PO SCH (09:51)
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
[2018-08-26] MEDS: Sodium Chloride 0.9% 1,000 ML IV SCH (17:15)
--- NOTE | 2018-08-26 22:30 | PN ---
DATE: 08/26/2018 REFERRING PHYSICIAN: Kristin Rg MD SUBJECTIVE: The patient is lying in the bed, sleepy, arousable, just finished her lunch with the help, wants to go home. No headache or rhinitis. No nausea, vomiting or diarrhea. No leg pain or leg swelling. OBJECTIVE: VITAL SIGNS: Temperature is 98, heart rate 78, respiratory rate is 18, blood pressure 106/55, pulse of 96% on 2 liters nasal cannula. HEENT: Small oral cavity. Crowded airway. NECK: Supple. No JVD. LUNGS: Fair airflow with rhonchi. HEART: S1 and S2. ABDOMEN: Soft, nontender, no organomegaly. EXTREMITIES: Not much edema. NEUROLOGIC: Awake, alert and follows simple command. MEDICATIONS: She is on Actigall 3 mg twice a day, Aldactone 25 mg twice a day, daptomycin 270 mg daily, lactulose 30 g twice a day, insulin coverage, Lasix 20 mg twice a day, metoprolol tartrate 12.5 mg twice a day, , nystatin powder twice a day, vitamin D 1 tablet daily, Pepcid 20 mg daily, IV fluid normal saline 50 mL per hour, Xopenex inhaled three times a day, also on Lasix 20 mg twice a day. LABORATORY DATA: Hemoglobin 9.9, hematocrit 28.6, WBC 2.8, platelet count is 71. Sodium 133, potassium 2.6, chloride 110, bicarbonate 21, BUN 12, creatinine 0.5, glucose 176, calcium is 7.2, ammonia 10. Microbiology, urine culture has VRE. IMPRESSION AND PLAN: Chronic obstructive lung disease, obstructive sleep apnea syndrome, cardiomyopathy with severe valvular heart disease, coronary artery disease, pulmonary hypertension, cryptogenic cirrhotic liver disease, portal thrombus, history of lymphedema which is improved, history of esophagitis, duodenitis, gastritis, recurrent epistaxis in the past, vertebral compression fracture, malnutrition. Pulmonary point of view, doing well. We will discontinue intravenous fluids. Continue small dose of Lasix, antibiotics as per Infectious Diseases, inhaled bronchodilator, sleep apnea precaution, avoid sedation. Fall precaution. Discharge planning when cleared by Infectious Diseases. We will follow with you. Pablo Cantor MD
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
[2018-08-27] MEDS: Insulin Reg-LOW-Coverage SC SCH ×4 (07:53→22:00)
[2018-08-27] MEDS: Levalbuterol 0.63 MG/3 ML Inhal Soln UD IH SCH ×3 (08:04→21:30)
[2018-08-27] MEDS: Calcium-Vit D 250 mg-125 Units Tab UD PO SCH (10:26)
[2018-08-27] MEDS: Nystatin 100,000 Units/gm Topical Pow(15 gm) TOP SCH (10:28)
[2018-08-27 11:44] LABS: MEAN CELL VOLUME 92.2 fl (80.0-105.0); MEAN CORPUSCULAR HEMOGLOBIN 31.6 pg (25.0-35.0); MEAN CORPUSCULAR HGB CONC 34.3 g/dl (31.0-37.0); MEAN PLATELET VOLUME 8.9 fl (7.0-11.0); RBC 3.48 10^6/uL (3.5-6.1); WHITE BLOOD COUNT 5.1 10^3/uL (4.5-11.0)
[2018-08-27 11:47] LABS: BLOOD UREA NITROGEN 12 mg/dL (7-21); CALCIUM 7.6 mg/dL (8.4-10.5); GFR NON-AFRICAN AMERICAN > 60
--- NOTE | 2018-08-27 12:21 | PN ---
DATE: 08/27/2018 PULMONARY PROGRESS NOTE REFERRING PHYSICIAN: Kristin Rg MD SUBJECTIVE: Patient is sitting up in bed, reports feeling well today, no acute distress, no overnight events reported. Patient did not wear CPAP machine last night. No headache, rhinitis, cough, shortness of breath, chest pain, abdominal pain, nausea, vomiting, diarrhea, leg pain or leg swelling reported. OBJECTIVE GENERAL: No acute distress. VITAL SIGNS: Blood pressure 111/50, pulse 77, temperature 98, and oxygen saturation 98%. HEENT: Small oral cavity. Crowded airway. Moist mucous membranes. NECK: Supple. No JVD. LUNGS: Few rhonchi bilaterally. CARDIOVASCULAR: S1 and S2, audible. ABDOMEN: Soft and nontender. No distension. No organomegaly. EXTREMITIES: Trace bilateral lower extremity edema. NEUROLOGIC: Awake, alert, and verbal. Follows commands. MEDICATIONS: Reviewed. Os-Cristo 1 tab daily, daptomycin 270 mg daily, Pepcid 20 mg daily, Lasix 20 mg twice a day, Humulin-R sliding scale a.c. and at bedtime, Lactulose 30 g twice a day, Xopenex 0.63 mg inhalation 3 times a day, metoprolol tartrate 12.5 mg twice a day, nystatin topically twice a day, Xifaxan 550 mg twice a day, Aldactone 25 mg twice a day and Ursodiol 300 mg twice a day. LABORATORY DATA: Reviewed. POC glucose 128. IMPRESSION AND PLAN: Chronic obstructive lung disease, obstructive sleep apnea syndrome, cardiomyopathy with severe valvular heart disease, coronary artery disease, pulmonary hypertension, cryptogenic cirrhotic liver disease, portal thrombus, history of lymphedema which has improved. The patient has esophagitis, duodenitis, gastritis, recurrent epistaxis in the past, vertebral compression fracture, severe aortic stenosis. Pulmonary point of view, continue diuretics, antibiotics per Infectious Disease, inhaled bronchodilators, sleep apnea precautions, head of bed elevated at 45 degrees, avoid sedation, fall precaution. Discharge planning once cleared by Infectious Disease. This patient was seen and examined with Dr. Cantor. Discussed assessment and plan as described above. Thank you for this consult. We will follow with you. Alec Prudence, PHARMACY TECHNICIAN INPATIENT Pablo Cantor MD [facility] # [id number] [facility]ENTER[facility]omy
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
[2018-08-27] MEDS: Potassium Chloride 20 mEq ER Tab PO ONE ×2 (13:25→17:34)
--- NOTE | 2018-08-27 13:39 | CP.PCM.CON ---
History of Present Illness - History of Present Illness History of Present Illness: PGY-4 GI Fellow Prog Note Pt lying in bed when seen this AM. States she is doing OK without complaints. Tolerating diet without issues. Eager for possible DC. 5 point ROS negative other than stated above Past Patient History - Infectious Disease Hx of Infectious Diseases: None - Tetanus Immunizations Tetanus Immunization: Up to Date - Past Medical History & Family History Past Medical History?: Yes - Past Social History Smoking Status: Never Smoked - CARDIAC Hx Cardiac Disorders: Yes Hx Congestive Heart Failure: Yes - PULMONARY Hx Respiratory Disorders: Yes Hx Chronic Obstructive Pulmonary Disease (COPD): Yes - NEUROLOGICAL Hx Neurological Disorder: Yes Hx Dementia: Yes - HEENT Hx HEENT Problems: Yes Hx Cataracts: Yes - RENAL Hx Chronic Kidney Disease: Yes Other/Comment: urinary bladder infection - ENDOCRINE/METABOLIC Hx Diabetes Mellitus Type 2: Yes - HEMATOLOGICAL/ONCOLOGICAL Hx Blood Disorders: Yes Hx Anemia: Yes - INTEGUMENTARY Hx Dermatological Problems: Yes Other/Comment: cellulitis BLE - MUSCULOSKELETAL/RHEUMATOLOGICAL Hx Musculoskeletal Disorders: Yes Hx Falls: Yes Hx Fractures: Yes - GASTROINTESTINAL Hx Gastrointestinal Disorders: Yes Other/Comment: gastritis - GENITOURINARY/GYNECOLOGICAL Hx Incontinence: Yes - PSYCHIATRIC Hx Psychophysiologic Disorder: Yes Hx Depression: Yes Hx Substance Use: No - SURGICAL HISTORY Hx Surgeries: Yes Hx Cardiac Catheterization: Yes Hx Cholecystectomy: Yes Hx Coronary Stent: Yes - ANESTHESIA Hx Anesthesia: Yes Meds Allergies/Adverse Reactions: Allergies Allergy/AdvReac Type Severity Reaction Status Date / Time antibiotic Allergy URTICARIA Uncoded 05/21/18 15:55 - Medications Medications: Current Medications Calcium/Vitamin D (Oscal-D 250 Mg-125 Units Tab) 1 tab PO DAILY [facility] Last Admin: 08/27/18 10:26 Dose: 1 tab Famotidine (Pepcid) 20 mg PO DAILY [facility] Last Admin: 08/27/18 10:26 Dose: 20 mg Furosemide (Lasix) 20 mg PO BID [facility] Last Admin: 08/27/18 10:31 Dose: 20 mg Daptomycin 270 mg/ Sodium (Chloride) 100 mls @ 200 mls/hr IV Q24H [facility] Stop: 08/29/18 11:16 Last Admin: 08/27/18 10:32 Dose: 200 mls/hr Insulin Human Regular (Humulin R Low) 0 units SC [facility]; Protocol Last Admin: 08/27/18 12:07 Dose: Not Given Lactulose (Enulose) 30 gm PO BID [facility] Last Admin: 08/24/18 18:04 Dose: 30 gm Levalbuterol HCl (Xopenex) 0.63 mg IH TIDRESP [facility] Last Admin: 08/27/18 08:04 Dose: 0.63 mg Metoprolol Tartrate (Lopressor) 12.5 mg PO BID [facility] Last Admin: 08/27/18 10:31 Dose: 12.5 mg Nystatin (Nystop Topical Powder) 0 gm TOP BID [facility] Last Admin: 08/27/18 10:28 Dose: 1 appl Rifaximin (Xifaxan) 550 mg PO BID [facility]; Protocol Last Admin: 08/27/18 10:26 Dose: 550 mg Spironolactone (Aldactone) 25 mg PO BID [facility] Last Admin: 08/27/18 10:27 Dose: 25 mg Ursodiol (Actigall) 300 mg PO BID [facility] Last Admin: 08/27/18 10:27 Dose: 300 mg Physical Exam - Constitutional Appears: No Acute Distress, Cachectic, Chronically Ill - Head Exam Head Exam: ATRAUMATIC Additional comments: temporal wasting - ENT Exam ENT Exam: Mucous Membranes Dry. absent: Mucous Membranes Moist - Respiratory Exam Respiratory Exam: NORMAL BREATHING PATTERN. absent: Accessory Muscle Use, Respiratory Distress - GI/Abdominal Exam GI & Abdominal Exam: Distended, Normal Bowel Sounds, Soft. absent: Bruit, Diminished Bowel Sounds, Firm, Guarding, Organomegaly, Rigid, Tenderness Results - Vital Signs Recent Vital Signs: Last Vital Signs Temp 98 F 08/27/18 06:00 Pulse 77 08/27/18 10:31 Resp 16 08/27/18 06:00 BP 111/50 L 08/27/18 10:31 Pulse Ox 98 08/27/18 06:00 - Labs Result Diagrams: 08/27/18 11:25 08/27/18 11:25 Labs: Laboratory Results - last 24 hr 08/26/18 08/26/18 08/27/18 16:08 21:39 11:06 WBC RBC Hgb Hct MCV MCH MCHC RDW Plt Count MPV Sodium Potassium Chloride Carbon Dioxide Anion Gap BUN Creatinine Est GFR ( Amer) Est GFR (Non-Af Amer) POC Glucose (mg/dL) 176 H 144 H 128 H Random Glucose Calcium Ammonia 08/27/18 08/27/18 08/27/18 11:25 11:25 11:25 WBC 5.1 D RBC 3.48 L Hgb 11.0 L Hct 32.1 L MCV 92.2 MCH 31.6 MCHC 34.3 RDW 18.0 H Plt Count 86 L MPV 8.9 Sodium 132 Potassium 3.6 Chloride 107 Carbon Dioxide 22 Anion Gap 7 L BUN 12 Creatinine 0.6 L Est GFR ( Amer) > 60 Est GFR (Non-Af Amer) > 60 POC Glucose (mg/dL) Random Glucose 119 H Calcium 7.6 L Ammonia < 9 L
--- NOTE | 2018-08-27 18:01 | PN ---
DATE: 08/27/2018 REASON FOR CONSULTATION: Cardiac evaluation and followup, positive troponin in admission, generalized weakness, failure to thrive, history of severe aortic stenosis, , cryptogenic cirrhosis, dysfunction, thrombocytopenia, nosebleed. SUBJECTIVE: The patient denies any chest pain, shortness of breath, any palpitation, crying, not sure why she is crying. PHYSICAL EXAMINATION: GENERAL: Not in apparent distress. VITAL SIGNS: Temperature afebrile, heart rate 77, and blood pressure 111/50. HEENT: PERRLA. Extraocular muscles intact. NECK: Supple. No carotid bruit or thyromegaly. CHEST: Clear to auscultation. HEART: S1 and S2 regular. ABDOMEN: Soft. EXTREMITIES: Clubbing, cyanosis negative. LABORATORY DATA: WBC 5.8, hemoglobin 11, hematocrit 32.1, and platelet count 86. Chemistry shows sodium 130, potassium 3.6, chloride 102, carbon dioxide 22, anion gap of 7, BUN 12, and creatinine 0.7. IMPRESSION: A 78-year-old female with past medical history significant for aortic stenosis, history of coronary artery disease, status post percutaneous transluminal coronary angioplasty of right coronary artery in 2008, cryptogenic cirrhosis, thrombocytopenia, leg edema, cellulitis, history of coronary artery disease status post percutaneous transluminal coronary angioplasty of right coronary artery in 2008, history of frequent nosebleed, [id number], loosing weight, chronic obstructive pulmonary disease, diabetes, hypertension, hyperlipidemia, depression, arteriovenous malformation, history of gastrointestinal bleed. RECOMMENDATIONS: Continue antibiotics as per ID for UTI. Continue lactulose, continue spironolactone as renal function . Continue gentle diuretics. Continue low-dose beta kirby. Overall, the patient's long-term prognosis is guarded. I discussed with her son on Monday, was willing for a time for DNR/DNI as advanced directive. Cheryl is working on it for DNR/DNI. Continue supportive care. The patient's current prognosis is extremely poor or extremely guarded. We will supplement potassium. Thank you Dr. Guillermo for providing us the opportunity in taking care of the patient, Laurie Killian. Pablo Guillermo MD [facility] # [id number]
--- NOTE | 2018-08-27 20:46 | CP.PCM.PN ---
<Timothy Yang - Last Filed: 08/27/18 20:42> Subjective - Date & Time of Evaluation Date of Evaluation: 08/27/18 Time of Evaluation: 09:30 - Subjective Subjective: PGY-4 GI Fellow Prog Note Pt lying in bed when seen this AM. States that she is doing OK, denied any complaints. Eager for possible DC. 5 point ROS negative other than stated above Objective - Vital Signs/Intake and Output Vital Signs (last 24 hours): Temp Pulse Resp BP Pulse Ox 98 F 74 16 100/48 L 98 08/27/18 06:00 08/27/18 17:32 08/27/18 06:00 08/27/18 17:32 08/27/18 06:00 Intake and Output: 08/27/18 08/28/18 18:59 06:59 Intake Total 360 Balance 360 - Medications Medications: Current Medications Calcium/Vitamin D (Oscal-D 250 Mg-125 Units Tab) 1 tab PO DAILY [facility] Last Admin: 08/27/18 10:26 Dose: 1 tab Famotidine (Pepcid) 20 mg PO DAILY [facility] Last Admin: 08/27/18 10:26 Dose: 20 mg Furosemide (Lasix) 20 mg PO BID [facility] Last Admin: 08/27/18 17:32 Dose: 20 mg Daptomycin 270 mg/ Sodium (Chloride) 100 mls @ 200 mls/hr IV Q24H [facility] Stop: 08/29/18 11:16 Last Admin: 08/27/18 10:32 Dose: 200 mls/hr Insulin Human Regular (Humulin R Low) 0 units SC ACHS [facility]; Protocol Last Admin: 08/27/18 17:25 Dose: Not Given Lactulose (Enulose) 30 gm PO BID [facility] Last Admin: 08/24/18 18:04 Dose: 30 gm Levalbuterol HCl (Xopenex) 0.63 mg IH TIDRESP [facility] Last Admin: 08/27/18 13:23 Dose: 0.63 mg Metoprolol Tartrate (Lopressor) 12.5 mg PO BID [facility] Last Admin: 08/27/18 17:32 Dose: 12.5 mg Nystatin (Nystop Topical Powder) 0 gm TOP BID [facility] Last Admin: 08/27/18 10:28 Dose: 1 appl Rifaximin (Xifaxan) 550 mg PO BID [facility]; Protocol Last Admin: 08/27/18 17:28 Dose: 550 mg Spironolactone (Aldactone) 25 mg PO BID [facility] Last Admin: 08/27/18 17:27 Dose: 25 mg Ursodiol (Actigall) 300 mg PO BID [facility] Last Admin: 08/27/18 17:27 Dose: 300 mg - Labs Labs: 08/27/18 11:25 08/27/18 11:25 PT 13.5 SECONDS (9.4-12.5) H 08/09/18 07:35 INR 1.17 08/09/18 07:35 APTT 36.0 Seconds (25.1-36.5) 08/04/18 21:45 - Constitutional Appears: Cachectic, Chronically Ill - Eye Exam Eye Exam: EOMI, Scleral icterus - ENT Exam ENT Exam: Mucous Membranes Dry. absent: Mucous Membranes Moist - Respiratory Exam Respiratory Exam: NORMAL BREATHING PATTERN. absent: Accessory Muscle Use, Respiratory Distress - GI/Abdominal Exam GI & Abdominal Exam: Soft, Normal Bowel Sounds. absent: Bruit, Distended, Firm, Guarding, Rigid, Tenderness, Mass, Organomegaly Assessment and Plan - Assessment and Plan (Free Text) Assessment: 78 yo WF with multiple comorbities including cirrhosis, CAD, Pulm HTN, COPD, Aortic Stenosis sent in from long term for weakness and hypokalemia. 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 Suspect Cardiac or PAULA. Increased bilirubin is concerning from 2s to 8.2 on admission, INR 1.42 on admission with MELD-Na 20. - PVT: Seen on admission CT, Doppler did not reveal any thrombus. Abd Doppler reviewed: No obvious thrombus, patent vessels. Splenomegaly with varices. MRCP with Abd MRI reviewed with severe dilation of proximal CBD 16mm and normal distal CBD 3mm possibly due to CBD stricture. Pt is extremely high risk for complications with ERCP/EUS with extensive co-morbidities. Cardiology consulted and agree pt very high risk. - EV: Last EGD 4 yrs ago, unknown results - HCC: No masses seen on admission CT - Ascites: On Spironolactone and Furoseide though not in typical ratio - Hepatic Encephalopathy: Fluctuating level of consciousness, overall if consistenting stooling 3-4 BMs seems to be improved, # CHF, CAD, Pulm HTN, Right sided CHF, Severe # COPD # H/o Colonic AVMs Plan: - Cont Ursodiol - Low Na diet - Cont diuretics - Cont lactulose BID, Rifaxamin BID for HE - Prognosis very guarded given multiple severe comorbid illness --- Agree with goals of care discussion Pt seen and examined with Dr. Freitas; please see attestation for further recs/changes <Stewart Freitas V - Last Filed: 08/28/18 00:05> Objective - Vital Signs/Intake and Output Vital Signs (last 24 hours): Temp Pulse Resp BP Pulse Ox 98.1 F 79 18 105/56 L 98 08/27/18 22:58 08/27/18 22:58 08/27/18 22:58 08/27/18 22:58 08/27/18 22:58 Intake and Output: 08/27/18 08/28/18 18:59 06:59 Intake Total 360 Balance 360 - Medications Medications: Current Medications Calcium/Vitamin D (Oscal-D 250 Mg-125 Units Tab) 1 tab PO DAILY [facility] Last Admin: 08/27/18 10:26 Dose: 1 tab Famotidine (Pepcid) 20 mg PO DAILY [facility] Last Admin: 08/27/18 10:26 Dose: 20 mg Furosemide (Lasix) 20 mg PO BID [facility] Last Admin: 08/27/18 17:32 Dose: 20 mg Daptomycin 270 mg/ Sodium (Chloride) 100 mls @ 200 mls/hr IV Q24H [facility] Stop: 08/29/18 11:16 Last Admin: 08/27/18 10:32 Dose: 200 mls/hr Insulin Human Regular (Humulin R Low) 0 units SC [facility]; Protocol Last Admin: 08/27/18 17:25 Dose: Not Given Lactulose (Enulose) 30 gm PO BID [facility] Last Admin: 08/24/18 18:04 Dose: 30 gm Levalbuterol HCl (Xopenex) 0.63 mg IH TIDRESP [facility] Last Admin: 08/27/18 13:23 Dose: 0.63 mg Metoprolol Tartrate (Lopressor) 12.5 mg PO BID [facility] Last Admin: 08/27/18 17:32 Dose: 12.5 mg Nystatin (Nystop Topical Powder) 0 gm TOP BID [facility] Last Admin: 08/27/18 10:28 Dose: 1 appl Rifaximin (Xifaxan) 550 mg PO BID [facility]; Protocol Last Admin: 08/27/18 17:28 Dose: 550 mg Spironolactone (Aldactone) 25 mg PO BID [facility] Last Admin: 08/27/18 17:27 Dose: 25 mg Ursodiol (Actigall) 300 mg PO BID [facility] Last Admin: 08/27/18 17:27 Dose: 300 mg - Labs Labs: 08/27/18 11:25 08/27/18 11:25 PT 13.5 SECONDS (9.4-12.5) H 08/09/18 07:35 INR 1.17 08/09/18 07:35 APTT 36.0 Seconds (25.1-36.5) 08/04/18 21:45 Attending/Attestation - Attestation I have personally seen and examined this patient.: Yes I have fully participated in the care of the patient.: Yes I have reviewed all pertinent clinical information, including history, physical exam and plan: Yes Notes (Text): p 08/28/18 00:05
--- NOTE | 2018-08-28 01:47 | PN ---
DATE: 08/27/2018 SUBJECTIVE: The patient was seen and examined at the bedside on 08/27/2018 looking comfortable. No fever. No chills. No nausea, vomiting, or diarrhea. No hematuria or hematochezia. No swelling of the legs. No chest pain. No palpitation. No headache. No dizziness. PHYSICAL EXAMINATION: VITAL SIGNS: Blood pressure 120/60, pulse is 70, temperature 98.6, respiratory rate 18, oxygen saturation 98%. HEENT: Head, normocephalic and atraumatic. Eyes, PERRLA. Extraocular muscles are intact. Conjunctivae clear. Nose patent. Mucous membranes are moist. NECK: Supple. No carotid bruits. No JVD or thyromegaly. HEART: S1 and S2 positive. ABDOMEN: Soft, nontender. No organomegaly. EXTREMITIES: No edema. No cyanosis. NEUROLOGIC: The patient is awake, alert, follows simple commands. MEDICATIONS: Os-Cristo, daptomycin, Pepcid, Lasix, insulin, lactulose, Xopenex, metoprolol, nystatin, Aldactone, Isordil. LABORATORY DATA: White blood cell is 5.1, hemoglobin 11, hematocrit 32.1, platelets 86. Sodium 132, potassium 3.6, BUN 12, creatinine 0.6, glucose is 120, calcium 7.6, ammonia less than 9. ASSESSMENT AND PLAN: Ms. Sullivan is a 78-year-old lady with anemia, thrombocytopenia, diabetes mellitus, hypocalcemia, ammonia level is less than 9, hematuria, urinary tract infection. She has multiple medical problems, has aortic stenosis, history of coronary artery disease status post percutaneous transluminal angioplasty of right coronary artery in 2008, cryptogenic cirrhosis, history of pancytopenia, cellulitis of extremities, history of multiple times nose bleeding, got nasal cauterization from emergency room with history of hypertension, hypercholesterolemia and depression, arteriovenous malformation and history of gastrointestinal bleeding. Now has urinary tract infection, continue antibiotics as per Infectious Disease, continues lactulose, spironolactone and gentle diuresis. Patient has low-dose beta kirby for tachycardia. Cheryl Mathew is on the case, talking to the son about do not resuscitate, do not intubate. Continue supportive care. Seen by commercial accountant, news videotape editor, and gastrointestinal. Continue Isordil, low-sodium diet, lactulose and rifaximin. Gastrointestinal and deep vein thrombosis prophylaxis. Repeat labs. Kristin gR MD
[2018-08-28] MEDS: Levalbuterol 0.63 MG/3 ML Inhal Soln UD IH SCH ×4 (02:45→20:08)
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
[2018-08-28] MEDS: Insulin Reg-LOW-Coverage SC SCH ×4 (08:12→21:37)
[2018-08-28] MEDS: Nystatin 100,000 Units/gm Topical Pow(15 gm) TOP SCH ×2 (11:00→18:29)
[2018-08-28] MEDS: Calcium-Vit D 250 mg-125 Units Tab UD PO SCH (11:02)
--- NOTE | 2018-08-28 11:27 | CP.PCM.PN ---
<Timothy Yang - Last Filed: 08/28/18 11:24> Subjective - Date & Time of Evaluation Date of Evaluation: 08/28/18 Time of Evaluation: 08:45 - Subjective Subjective: PGY-4 GI Fellow Prog Note Pt lying in bed when seen this AM. States that she is doing well without any complaints. Reports tolerating diet and moving bowels. 5 point ROS negative other than stated above Objective - Vital Signs/Intake and Output Vital Signs (last 24 hours): Temp Pulse Resp BP Pulse Ox 98 F 70 18 120/57 L 100 08/28/18 07:26 08/28/18 07:26 08/28/18 07:26 08/28/18 07:26 08/28/18 07:26 Intake and Output: 08/28/18 08/28/18 06:59 18:59 Intake Total 600 Output Total 0 Balance 600 - Medications Medications: Current Medications Calcium/Vitamin D (Oscal-D 250 Mg-125 Units Tab) 1 tab PO DAILY [facility] Last Admin: 08/28/18 11:02 Dose: 1 tab Famotidine (Pepcid) 20 mg PO DAILY [facility] Last Admin: 08/28/18 11:02 Dose: 20 mg Furosemide (Lasix) 20 mg PO BID [facility] Last Admin: 08/27/18 17:32 Dose: 20 mg Daptomycin 270 mg/ Sodium (Chloride) 100 mls @ 200 mls/hr IV Q24H [facility] Stop: 08/29/18 11:16 Last Admin: 08/27/18 10:32 Dose: 200 mls/hr Insulin Human Regular (Humulin R Low) 0 units SC [facility]; Protocol Last Admin: 08/28/18 08:12 Dose: Not Given Lactulose (Enulose) 30 gm PO BID [facility] Last Admin: 08/24/18 18:04 Dose: 30 gm Levalbuterol HCl (Xopenex) 0.63 mg IH TIDRESP [facility] Last Admin: 08/28/18 07:20 Dose: 0.63 mg Metoprolol Tartrate (Lopressor) 12.5 mg PO BID [facility] Last Admin: 08/27/18 17:32 Dose: 12.5 mg Nystatin (Nystop Topical Powder) 0 gm TOP BID [facility] Last Admin: 08/27/18 10:28 Dose: 1 appl Rifaximin (Xifaxan) 550 mg PO BID [facility]; Protocol Last Admin: 08/28/18 11:02 Dose: 550 mg Spironolactone (Aldactone) 25 mg PO BID [facility] Last Admin: 08/27/18 17:27 Dose: 25 mg Ursodiol (Actigall) 300 mg PO BID [facility] Last Admin: 08/28/18 10:56 Dose: 300 mg - Labs Labs: 08/27/18 11:25 08/27/18 11:25 PT 13.5 SECONDS (9.4-12.5) H 08/09/18 07:35 INR 1.17 08/09/18 07:35 APTT 36.0 Seconds (25.1-36.5) 08/04/18 21:45 - Constitutional Appears: No Acute Distress, Cachectic, Chronically Ill - Head Exam Head Exam: ATRAUMATIC Additional comments: temporal wasting - Eye Exam Eye Exam: EOMI - ENT Exam ENT Exam: Mucous Membranes Dry. absent: Mucous Membranes Moist - Respiratory Exam Respiratory Exam: NORMAL BREATHING PATTERN. absent: Accessory Muscle Use, Respiratory Distress - GI/Abdominal Exam GI & Abdominal Exam: Distended (mildly), Soft, Normal Bowel Sounds. absent: Bruit, Firm, Guarding, Rigid, Tenderness, Mass, Organomegaly, Pulsatile Mass Assessment and Plan - Assessment and Plan (Free Text) Assessment: 78 yo WF with multiple comorbities including cirrhosis, CAD, Pulm HTN, COPD, Aortic Stenosis [facility] and hypokalemia. 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 Suspect Cardiac or PAULA. Increased bilirubin is concerning from 2s to 8.2 on admission, INR 1.42 on admission with MELD-Na 20. - PVT: Seen on admission CT, Doppler did not reveal any thrombus. Abd Doppler reviewed: No obvious thrombus, patent vessels. Splenomegaly with varices. MRCP with Abd MRI reviewed with severe dilation of proximal CBD 16mm and normal distal CBD 3mm possibly due to CBD stricture. Pt is extremely high risk for complications with ERCP/EUS with extensive co-morbidities. Cardiology consulted and agree pt very high risk. - EV: Last EGD 4 yrs ago, unknown results - HCC: No masses seen on admission CT - Ascites: On Spironolactone and Furosemide though not in typical ratio - Hepatic Encephalopathy: Fluctuating level of consciousness, previously. Now stable for days with addition of rifaximin. # CHF, CAD, Pulm HTN, Right sided CHF, Severe # COPD # H/o Colonic AVMs Plan: - Cont Ursodiol - Low Na diet - Cont diuretics - Cont lactulose BID, Rifaxamin BID for HE - Prognosis very guarded given multiple severe comorbid illness --- Agree with goals of care discussion Pt seen and examined with Dr. Freitas; please see attestation for further recs/changes <Stewart Freitas V - Last Filed: 08/28/18 23:00> Objective - Vital Signs/Intake and Output Vital Signs (last 24 hours): Temp Pulse Resp BP Pulse Ox 98 F 70 18 110/53 L 100 08/28/18 07:26 08/28/18 07:26 08/28/18 07:26 08/28/18 18:27 08/28/18 07:26 Intake and Output: 08/28/18 08/29/18 18:59 06:59 Intake Total 420 Balance 420 - Medications Medications: Current Medications Calcium/Vitamin D (Oscal-D 250 Mg-125 Units Tab) 1 tab PO DAILY [facility] Last Admin: 08/28/18 11:02 Dose: 1 tab Famotidine (Pepcid) 20 mg PO DAILY [facility] Last Admin: 08/28/18 11:02 Dose: 20 mg Furosemide (Lasix) 20 mg PO BID [facility] Last Admin: 08/28/18 18:27 Dose: Not Given Daptomycin 270 mg/ Sodium (Chloride) 100 mls @ 200 mls/hr IV Q24H [facility] Stop: 08/29/18 11:16 Last Admin: 08/27/18 10:32 Dose: 200 mls/hr Insulin Human Regular (Humulin R Low) 0 units SC [facility]; Protocol Last Admin: 08/28/18 21:37 Dose: Not Given Lactulose (Enulose) 30 gm PO BID [facility] Last Admin: 08/24/18 18:04 Dose: 30 gm Levalbuterol HCl (Xopenex) 0.63 mg IH TIDRESP [facility] Last Admin: 08/28/18 20:08 Dose: 0.63 mg Metoprolol Tartrate (Lopressor) 12.5 mg PO BID [facility] Last Admin: 08/28/18 18:28 Dose: Not Given Nystatin (Nystop Topical Powder) 0 gm TOP BID [facility] Last Admin: 08/28/18 18:29 Dose: Not Given Rifaximin (Xifaxan) 550 mg PO BID [facility]; Protocol Last Admin: 08/28/18 18:27 Dose: 550 mg Spironolactone (Aldactone) 25 mg PO BID [facility] Last Admin: 08/28/18 18:27 Dose: Not Given Ursodiol (Actigall) 300 mg PO BID [facility] Last Admin: 08/28/18 18:27 Dose: 300 mg - Labs Labs: 08/27/18 11:25 08/27/18 11:25 PT 13.5 SECONDS (9.4-12.5) H 08/09/18 07:35 INR 1.17 08/09/18 07:35 APTT 36.0 Seconds (25.1-36.5) 08/04/18 21:45 Attending/Attestation - Attestation I have personally seen and examined this patient.: Yes I have fully participated in the care of the patient.: Yes I have reviewed all pertinent clinical information, including history, physical exam and plan: Yes Notes (Text): This is an addendum to GI progress report dictated by the GI Fellow.The patient was seen and examined earlier. Medical records, lab studies, imagings were reviewed. Last 24 hours events reviewed. Agreed with the above treatment plan as outlined in GI Fellow 's notes with the addition of the following Patient more alert tolerating diet Patient is on Xifaxan 550mg twice daily for hepatic encephalopathy On lactulose on PRN dose only based on bowl movements Continue Actigall History of biliary stricture No further workup planned Cirrhosis of the liver Arotic Stenosis History of nose bleed and bleeding diathesis Discussed with Dr. Rg earlier today Discussed with the patient and patient's son who was at bedside 08/28/18 22:55
--- NOTE | 2018-08-28 13:26 | PN ---
DATE: 08/28/2018 REASON FOR CONSULTATION: Followup cardiac evaluation, admitted with failure to thrive, generalized weakness, positive troponin, history of severe aortic stenosis, coronary artery disease. This note is in addition to dictated by nurse practitioner, Deisi Nair. The patient is much awake and alert. RECOMMENDATION: Continue metoprolol. Continue spironolactone. Continue gentle diuretics. Continue antibiotics for infection. Continue low dose of metoprolol as tolerated. IMPRESSION: History of aortic stenosis, refused transcatheter aortic valve replacement in the past, cryptogenic cirrhosis, thrombocytopenia, frequent nosebleed. Overall, the patient's condition is critical. Long-term prognosis is extremely poor. Code status should be [id number], but the patient is not in [id number]. We will follow with you. Thank you Dr. Rg for providing us the opportunity in taking care of the patient, Maria D Sullivan. Pablo Guillermo MD
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
--- NOTE | 2018-08-28 16:01 | PN ---
DATE: 08/28/2018 PULMONARY PROGRESS NOTE REFERRING PHYSICIAN: Kristin Rg MD SUBJECTIVE: The patient is sitting up in chair in room. No acute distress. No overnight events reported, did not wear CPAP machine last night, son is at bedside. No headache, rhinitis, cough, shortness of breath, chest pain, abdominal pain, nausea, vomiting, diarrhea, leg pain or leg swelling reported. OBJECTIVE: GENERAL: No acute distress. VITAL SIGNS: Blood pressure 120/57, pulse 70, temperature 98, oxygen saturation 100% on room air. HEENT: Small oral cavity. Moist mucous membranes. Crowded airway. NECK: Supple. No JVD. LUNGS: Few rhonchi bilaterally. CARDIOVASCULAR: S1 and S2 audible. ABDOMEN: Soft and nontender. No distention. No organomegaly. EXTREMITIES: Trace bilateral lower extremity edema. NEUROLOGIC: Awake, alert and verbal. Follows commands. MEDICATIONS: Reviewed. Os-Cristo 1 tab daily, daptomycin 270 mg every 24 hours, Pepcid 20 mg daily, Lasix 20 mg twice a day, Humulin-R sliding scale a.c. and at bedtime, Lactulose 30 g twice a day, Xopenex 0.63 mg inhalation 3 times a day, metoprolol tartrate 12.5 mg twice a day, nystatin topically twice a day to affected area, Xifaxan 550 mg twice a day, spironolactone 25 mg twice a day, Ursodiol 300 mg twice a day. LABORATORY DATA: Reviewed. POC glucose 84. IMPRESSION AND PLAN: Chronic obstructive lung disease, obstructive sleep apnea syndrome, cardiomyopathy with severe valvular heart disease, coronary artery disease, pulmonary hypertension, cryptogenic cirrhotic liver, portal thrombus, history of lymphedema, esophagitis, duodenitis, gastritis history, recurrent epistaxis in the past, vertebral compression fracture, severe aortic stenosis. Pulmonary point of view, continue diuretics, antibiotics per Infectious Disease, inhaled bronchodilators, sleep apnea precautions, head of bed elevated at 45 degrees. Continue to encourage continuous positive airway pressure use at bedtime. Fall precaution, avoid sedation. This patient was seen and examined with Dr. Cantor. Discussed assessment and plan as described above. Thank you for this consult and we will follow with you. Alec Marie APN [facility] # [id number]
--- NOTE | 2018-08-29 04:41 | PN ---
DATE: 08/28/2018 SUBJECTIVE: The patient is a 78-year-old female. The patient was seen and examined at the bedside. Looking comfortable. Family sitting on the bedside also. No fever. No chills. No hematuria. No hematochezia. No headache. No dizziness. No chest pain. No palpitation. PHYSICAL EXAMINATION: VITAL SIGNS: Temperature 98, pulse 70, respiratory rate 18, blood pressure 120/77, pulse oximetry 100%. HEENT: Head normocephalic and atraumatic. Eyes PERRLA. Extraocular muscles intact. Conjunctivae clear. Nose patent. Mucous membranes moist. NECK: Supple. No carotid bruit, JVD or thyromegaly. CHEST: Bilaterally symmetrical. HEART: S1 and S2 positive. LUNGS: Clear to auscultation. ABDOMEN: Soft. Bowel sounds present. No organomegaly. EXTREMITIES: No edema. No cyanosis. NEUROLOGY: The patient is awake, alert. Follows simple commands. MEDICATIONS: Calcium, Pepcid, Lasix, insulin, lactulose, Xopenex, Lopressor, nystatin, rifaximin, Aldactone, Actigall. LABORATORY DATA: White blood cells 5.1, hemoglobin 11, hematocrit 32.1, platelets 56. Sodium 132, potassium 3.6, BUN 12, creatinine 0.6, glucose 193. ASSESSMENT AND PLAN: Mrs. Maria D Sullivan is a 78-year-old lady with pancytopenia, hyperglycemia, with multiple comorbidities including cryptogenic cirrhosis, coronary artery disease, pulmonary hypertension, chronic obstructive pulmonary disease, aortic stenosis, electrolyte imbalance, history of increased bilirubin. Doppler revealed no deep venous thrombosis. Congestive heart failure. gi arteriovenous malformation. Continue ursodiol, low-sodium diet , diabetic 1800kcal ada diet , diuretics, Prognosis is guarded. The patient is getting rifaximin 550 mg twice a day for hepatic encephalopathy. Lactulose will be as needed only based on bowel movements , as per d/d with dr. Myles gi . Continue Actigall as per Dr. Freitas . No more gI workup planned as per gi . h/o of Recurrent epistaxis. Length of time discussion done with Dr. Freitas and the patient's son susannah . Review Dr. Freitas's notes, Dr. Cantor and Dr. Guillermo's notes and Dr. Richard's notes also. According to Dr. Richard, cefepime seven days. Continue daptomycin day five, to complete five to seven days. Continue to monitor clinically. Repeat blood cultures negative. Mental status improved. Overall prognosis is poor. pt is not able to do her ADL , susannah , son want to take her home , need help at home , our sw are working to help family in the form of ,home health aid and visiting nurse , to check pt biood pressure etc We will follow up. Kristin Rg MD MTDJeromy
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
[2018-08-29] MEDS: Levalbuterol 0.63 MG/3 ML Inhal Soln UD IH SCH ×3 (07:37→19:17)
[2018-08-29] MEDS: Insulin Reg-LOW-Coverage SC SCH ×4 (07:57→22:48)
[2018-08-29] MEDS: Calcium-Vit D 250 mg-125 Units Tab UD PO SCH (10:46)
[2018-08-29] MEDS: Nystatin 100,000 Units/gm Topical Pow(15 gm) TOP SCH ×2 (10:46→17:46)
--- NOTE | 2018-08-29 13:28 | PN ---
DATE: 08/29/2018 PULMONARY PROGRESS NOTE REFERRING PHYSICIAN: Kristin Rg MD SUBJECTIVE: The patient is sitting in chair in room. No acute distress. Son is at bedside. No overnight events reported. The patient reports feeling well today. No headache, rhinitis, cough, shortness of breath, chest pain, abdominal pain, nausea, vomiting, diarrhea and leg pain reported. OBJECTIVE: GENERAL: No acute distress. VITAL SIGNS: Blood pressure 120/58, pulse 80, temperature 98.3, oxygen saturation 99% on room air. HEENT: Moist mucous membranes. Small oral cavity. Crowded airway. NECK: Supple. No JVD. LUNGS: Few rhonchi bilaterally. CARDIOVASCULAR: S1 and S2, audible. ABDOMEN: Soft and nontender. No distention. No organomegaly. EXTREMITIES: Trace bilateral lower extremity edema. NEUROLOGIC: Awake, alert and verbal. Follows commands. MEDICATIONS: Reviewed. Os-Cristo 1 tab daily, Pepcid 20 mg daily, Lasix 20 mg twice a day, Humulin-R sliding scale a.c. and at bedtime, Lactulose 30 g twice a day, Xopenex 0.63 mg inhalation 3 times a day, metoprolol tartrate 12.5 mg twice a day, nystatin topically twice a day to affected area, Xifaxan 550 mg twice a day, spironolactone 25 mg twice a day and Ursodiol 300 mg twice a day. LABORATORY DATA: Reviewed. POC glucose 184. IMPRESSION AND PLAN: Chronic obstructive lung disease, obstructive sleep apnea syndrome, cardiomyopathy with severe valvular heart disease, coronary artery disease, pulmonary hypertension, cryptogenic cirrhotic liver, portal thrombus, history of lymphedema, esophagitis, duodenitis, gastritis, recurrent epistaxis in the past, vertebral compression fracture, severe aortic stenosis. Pulmonary point of view, continue diuretics, antibiotics per Infectious Disease, inhaled bronchodilators, head of bed elevated at 45 degrees and sleep apnea precautions. The patient continues to refuse continuous positive airway pressure machine at this time. Fall precaution and avoid sedatives. We believe the patient would benefit from subacute rehab. Recommend discharge planning once cleared by infectious disease. This patient was seen and examined with Dr. Cantor. Discussed assessment and plan as described above. Thank you for this consult and we will follow with you. Alec Marie APN Pablo Cantor MD [facility] # [id number] [facility] SYSTEMJeromy
--- NOTE | 2018-08-29 14:30 | CP.PCM.PN ---
Subjective - Date & Time of Evaluation Date of Evaluation: 08/29/18 Time of Evaluation: 08:45 - Subjective Subjective: PGY-4 GI Fellow Prog Note Pt sleeping in bed when seen this AM. States she is doing well. States PO intake without difficulty and stooling. Eager for possible DC. 5 point ROS negative other than stated above Objective - Vital Signs/Intake and Output Vital Signs (last 24 hours): Temp Pulse Resp BP Pulse Ox 98.3 F 80 20 120/58 L 99 08/29/18 06:00 08/29/18 10:47 08/29/18 06:00 08/29/18 10:48 08/29/18 06:00 Intake and Output: 08/29/18 08/29/18 06:59 18:59 Intake Total 420 Balance 420 - Medications Medications: Current Medications Calcium/Vitamin D (Oscal-D 250 Mg-125 Units Tab) 1 tab PO DAILY [facility] Last Admin: 08/29/18 10:46 Dose: 1 tab Famotidine (Pepcid) 20 mg PO DAILY [facility] Last Admin: 08/29/18 10:46 Dose: 20 mg Furosemide (Lasix) 20 mg PO BID [facility] Last Admin: 08/29/18 10:48 Dose: 20 mg Insulin Human Regular (Humulin R Low) 0 units SC [facility]; Protocol Last Admin: 08/29/18 11:45 Dose: 1 unit Lactulose (Enulose) 30 gm PO BID [facility] Last Admin: 08/24/18 18:04 Dose: 30 gm Levalbuterol HCl (Xopenex) 0.63 mg IH TIDRESP [facility] Last Admin: 08/29/18 13:43 Dose: 0.63 mg Metoprolol Tartrate (Lopressor) 12.5 mg PO BID [facility] Last Admin: 08/29/18 10:47 Dose: 12.5 mg Nystatin (Nystop Topical Powder) 0 gm TOP BID [facility] Last Admin: 08/29/18 10:46 Dose: 1 appl Rifaximin (Xifaxan) 550 mg PO BID [facility]; Protocol Last Admin: 08/29/18 10:45 Dose: 550 mg Spironolactone (Aldactone) 25 mg PO BID [facility] Last Admin: 08/29/18 10:48 Dose: 25 mg Ursodiol (Actigall) 300 mg PO BID [facility] Last Admin: 08/29/18 10:45 Dose: 300 mg - Labs Labs: 08/27/18 11:25 08/27/18 11:25 PT 13.5 SECONDS (9.4-12.5) H 08/09/18 07:35 INR 1.17 08/09/18 07:35 APTT 36.0 Seconds (25.1-36.5) 08/04/18 21:45 - Constitutional Appears: No Acute Distress, Cachectic, Chronically Ill - Head Exam Head Exam: ATRAUMATIC, NORMAL INSPECTION - ENT Exam ENT Exam: Mucous Membranes Moist. absent: Mucous Membranes Dry - Respiratory Exam Respiratory Exam: NORMAL BREATHING PATTERN. absent: Accessory Muscle Use, Respiratory Distress - GI/Abdominal Exam GI & Abdominal Exam: Soft, Normal Bowel Sounds. absent: Bruit, Distended, Firm, Guarding, Rigid, Tenderness, Mass, Organomegaly, Pulsatile Mass, Rebound Assessment and Plan - Assessment and Plan (Free Text) Assessment: 78 yo WF with multiple comorbities including cirrhosis, CAD, Pulm HTN, COPD, Aortic Stenosis sent in from residential for weakness and hypokalemia. 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 Suspect Cardiac or PAULA. Increased bilirubin is concerning from 2s to 8.2 on admission, INR 1.42 on admission with MELD-Na 20. - PVT: Seen on admission CT, Doppler did not reveal any thrombus. Abd Doppler reviewed: No obvious thrombus, patent vessels. Splenomegaly with varices. MRCP with Abd MRI reviewed with severe dilation of proximal CBD 16mm and normal distal CBD 3mm possibly due to CBD stricture. Pt is extremely high risk for complications with ERCP/EUS with extensive co-morbidities. Cardiology consulted and agree pt very high risk. - EV: Last EGD 4 yrs ago, unknown results - HCC: No masses seen on admission CT - Ascites: On Spironolactone and Furosemide though not in typical ratio - Hepatic Encephalopathy: Fluctuating level of consciousness, previously. Now stable for days with addition of rifaximin. 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 Freitas; please see attestation for further recs/changes
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
[2018-08-29 23:25] VITALS: O2SAT 95
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
[2018-08-30] MEDS: Levalbuterol 0.63 MG/3 ML Inhal Soln UD IH SCH ×2 (07:25→13:02)
[2018-08-30 07:56] VITALS: PULSE 76; RESP 17; TEMP 98
--- NOTE | 2018-08-30 08:39 | PN ---
DATE: 08/29/2018 REASON FOR CONSULTATION: Followup cardiac evaluation, positive troponin, failure to thrive, generalized weakness, history of COPD, history of cryptogenic cirrhosis, history of severe aortic stenosis disease, TAVR in the past, history of PTCA. This note is in addition to dictated by nurse practitioner, Deisi Nair. Patient is stable, much awake and alert. Denies any chest pain, shortness of breath, or any palpitation. RECOMMENDATIONS: Continue supportive care. Overall patient's condition is critical. Long-term prognosis is guarded. We will continue Lasix 20 b.i.d., continue spironolactone, continue metoprolol 12.5 p.o. b.i.d. Pablo Guillermo MD
[2018-08-30 09:15] LABS: HEMOGLOBIN 10.2 g/dL (12.0-16.0); MEAN CELL VOLUME 92.8 fl (80.0-105.0); MEAN CORPUSCULAR HEMOGLOBIN 31.9 pg (25.0-35.0); MEAN CORPUSCULAR HGB CONC 34.3 g/dl (31.0-37.0); MEAN PLATELET VOLUME 8.8 fl (7.0-11.0); RBC 3.2 10^6/uL (3.5-6.1); WHITE BLOOD COUNT 4.5 10^3/uL (4.5-11.0)
[2018-08-30] MEDS: Insulin Reg-LOW-Coverage SC SCH (09:22)
[2018-08-30 09:28] LABS: BLOOD UREA NITROGEN 10 mg/dL (7-21); GFR NON-AFRICAN AMERICAN > 60
[2018-08-30] MEDS: Calcium-Vit D 250 mg-125 Units Tab UD PO SCH (10:29)
[2018-08-30 10:33] VITALS: BP 120/59
--- NOTE | 2018-08-30 11:11 | PN ---
DATE: 08/30/2018 PULMONARY PROGRESS NOTE REFERRING PHYSICIAN: Kristin Rg MD SUBJECTIVE: The patient is sitting up in bed, in no acute distress, no overnight events reported. The patient did not wear CPAP machine last night. The patient reports feeling well today. No headache, rhinitis, cough, shortness of breath, chest pain, abdominal pain, nausea, vomiting, diarrhea, leg pain, leg swelling reported. OBJECTIVE: GENERAL: No acute distress. VITAL SIGNS: Blood pressure 98/54, pulse 76, temperature 98, oxygen saturation 95. HEENT: Moist mucous membranes. Crowded airway. Small oral cavity. NECK: Supple. No JVD. LUNGS: Few rhonchi bilaterally. CARDIOVASCULAR: S1 and S2, audible. ABDOMEN: Soft and nontender. No distention. No organomegaly. EXTREMITIES: Trace bilateral lower extremity edema. NEUROLOGIC: Awake, alert and verbal. Follows commands. MEDICATIONS: Reviewed. Os-Cristo 1 tab daily, Pepcid 20 mg daily, Lasix 20 mg twice a day, Humulin-R sliding scale a.c. and at bedtime, Lactulose 30 g twice a day, Xopenex 0.63 mg inhalation 3 times a day, metoprolol tartrate 12.5 mg twice a day, nystatin topically twice a day affected area, Xifaxan 550 mg twice a day, Aldactone 25 mg twice a day and Ursodiol 300 mg twice a day. LABORATORY DATA: Reviewed. WBC 4.5, RBC 3.2, hemoglobin 10.2, hematocrit 29.7, platelets 79. Sodium 135, potassium 4, chloride 105, carbon dioxide 25, anion gap 8, BUN 10, creatinine 0.5, GFR greater than 60, random glucose 93, calcium 8. IMPRESSION AND PLAN: Chronic obstructive lung disease, obstructive sleep apnea syndrome, cardiomyopathy with severe valvular heart disease, coronary artery disease, pulmonary hypertension, cryptogenic cirrhotic liver, portal thrombus, history of lymphedema, esophagitis, duodenitis, gastritis, history of recurrent epistaxis in the past, vertebral compression fracture, severe aortic stenosis, urinary tract infection with vancomycin-resistant enterococci identified. Pulmonary point of view, continue diuretics, antibiotics per Infectious Disease, inhaled bronchodilators, head of bed elevated at 45 degrees and sleep apnea precautions. Continues to encourage continuous positive airway pressure use. Fall precautions, avoid sedatives. The patient will benefit from subacute rehab. Son and patient aware of recommendation for sub-acute but refusing at this time understanding risks. Fall precaution. We recommend discharge planning once cleared by Infectious Disease. This patient was seen and examined with Dr. Cantor. Discussed assessment and plan as described above. Thank you for this consult. We will follow with you. Alec Marie APN Pablo Cantor MD ARACELI
--- NOTE | 2018-08-30 12:00 | CP.PCM.PN ---
Subjective - Date & Time of Evaluation Date of Evaluation: 08/29/18 Time of Evaluation: 10:00 - Subjective Subjective: Alert, less confused. Offers no complaints Objective - Vital Signs/Intake and Output Vital Signs (last 24 hours): Temp Pulse Resp BP Pulse Ox 98 F 76 17 120/59 L 95 08/30/18 06:00 08/30/18 06:00 08/30/18 06:00 08/30/18 10:31 08/30/18 06:00 - Medications Medications: Current Medications Calcium/Vitamin D (Oscal-D 250 Mg-125 Units Tab) 1 tab PO DAILY [facility] Last Admin: 08/30/18 10:29 Dose: 1 tab Famotidine (Pepcid) 20 mg PO DAILY [facility] Last Admin: 08/30/18 10:29 Dose: 20 mg Furosemide (Lasix) 20 mg PO BID [facility] Last Admin: 08/30/18 10:31 Dose: 20 mg Insulin Human Regular (Humulin R Low) 0 units SC [facility]; Protocol Last Admin: 08/30/18 09:22 Dose: Not Given Lactulose (Enulose) 30 gm PO BID [facility] Last Admin: 08/24/18 18:04 Dose: 30 gm Levalbuterol HCl (Xopenex) 0.63 mg IH TIDRESP [facility] Last Admin: 08/30/18 07:25 Dose: 0.63 mg Metoprolol Tartrate (Lopressor) 12.5 mg PO BID [facility] Last Admin: 08/30/18 10:29 Dose: 12.5 mg Nystatin (Nystop Topical Powder) 0 gm TOP BID [facility] Last Admin: 08/29/18 17:46 Dose: 1 appl Rifaximin (Xifaxan) 550 mg PO BID [facility]; Protocol Last Admin: 08/30/18 10:29 Dose: 550 mg Spironolactone (Aldactone) 25 mg PO BID [facility] Last Admin: 08/30/18 10:29 Dose: 25 mg Ursodiol (Actigall) 300 mg PO BID [facility] Last Admin: 08/30/18 10:29 Dose: 300 mg - Labs Labs: 08/30/18 09:00 08/30/18 09:00 PT 13.5 SECONDS (9.4-12.5) H 08/09/18 07:35 INR 1.17 08/09/18 07:35 APTT 36.0 Seconds (25.1-36.5) 08/04/18 21:45 - Constitutional Appears: Chronically Ill - Head Exam Head Exam: NORMOCEPHALIC - Eye Exam Eye Exam: Normal appearance, PERRL - ENT Exam ENT Exam: Mucous Membranes Moist - Respiratory Exam Respiratory Exam: Decreased Breath Sounds, NORMAL BREATHING PATTERN - Cardiovascular Exam Cardiovascular Exam: Irregular Rhythm, +S1, +S2 - GI/Abdominal Exam GI & Abdominal Exam: Soft, Normal Bowel Sounds - Extremities Exam Extremities Exam: Pedal Edema - Skin Skin Exam: Pallor, Petechiae Assessment and Plan - Assessment and Plan (Free Text) Assessment: 78 year old female with history of cirrhosis,COPD,pulmonary hypertension, valvular disease/cardiomyopathy who is admitted with AMS now resolved and UTI Patient's son Timothy at bedside. Advance care planning discussion revisited. Son did not bring copy of patients advance directive nor did he fax as he had said he would. I offered to complete a POLST directive today. He stated that he would get back to me on this. Son intends to take patient to his home when discharged. Advance care planning discussion 10 minutes Plan: Advance care planning Daptomyin last dose tomorrow, then cleared for discharge
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
--- NOTE | 2018-08-30 14:31 | CP.PCM.PN ---
Subjective - Date & Time of Evaluation Date of Evaluation: 08/30/18 Time of Evaluation: 09:05 - Subjective Subjective: PGY-4 GI Fellow Prog Note Pt sleeping in bed when seen this AM. States she is doing OK; eating and stooling without issues. 5 point ROS negative other than stated above Objective - Vital Signs/Intake and Output Vital Signs (last 24 hours): Temp Pulse Resp BP Pulse Ox 98 F 76 17 120/59 L 95 08/30/18 06:00 08/30/18 06:00 08/30/18 06:00 08/30/18 10:31 08/30/18 06:00 - Medications Medications: Current Medications Calcium/Vitamin D (Oscal-D 250 Mg-125 Units Tab) 1 tab PO DAILY [facility] Last Admin: 08/30/18 10:29 Dose: 1 tab Famotidine (Pepcid) 20 mg PO DAILY [facility] Last Admin: 08/30/18 10:29 Dose: 20 mg Furosemide (Lasix) 20 mg PO BID [facility] Last Admin: 08/30/18 10:31 Dose: 20 mg Insulin Human Regular (Humulin R Low) 0 units SC [facility]; Protocol Last Admin: 08/30/18 09:22 Dose: Not Given Lactulose (Enulose) 30 gm PO BID [facility] Last Admin: 08/24/18 18:04 Dose: 30 gm Levalbuterol HCl (Xopenex) 0.63 mg IH TIDRESP [facility] Last Admin: 08/30/18 13:02 Dose: 0.63 mg Metoprolol Tartrate (Lopressor) 12.5 mg PO BID [facility] Last Admin: 08/30/18 10:29 Dose: 12.5 mg Nystatin (Nystop Topical Powder) 0 gm TOP BID [facility] Last Admin: 08/29/18 17:46 Dose: 1 appl Rifaximin (Xifaxan) 550 mg PO BID [facility]; Protocol Last Admin: 08/30/18 10:29 Dose: 550 mg Spironolactone (Aldactone) 25 mg PO BID [facility] Last Admin: 08/30/18 10:29 Dose: 25 mg Ursodiol (Actigall) 300 mg PO BID [facility] Last Admin: 08/30/18 10:29 Dose: 300 mg - Labs Labs: 08/30/18 09:00 08/30/18 09:00 PT 13.5 SECONDS (9.4-12.5) H 08/09/18 07:35 INR 1.17 08/09/18 07:35 APTT 36.0 Seconds (25.1-36.5) 08/04/18 21:45 - Constitutional Appears: No Acute Distress, Chronically Ill - ENT Exam ENT Exam: Mucous Membranes Moist. absent: Mucous Membranes Dry - Respiratory Exam Respiratory Exam: NORMAL BREATHING PATTERN. absent: Accessory Muscle Use, Respiratory Distress - GI/Abdominal Exam GI & Abdominal Exam: Distended, Soft, Normal Bowel Sounds. absent: Bruit, Firm, Guarding, Rigid, Tenderness, Mass, Organomegaly, Pulsatile Mass Assessment and Plan - Assessment and Plan (Free Text) Assessment: 78 yo WF with multiple comorbities including cirrhosis, CAD, Pulm HTN, COPD, Ao rtic Stenosis sent in from longterm for weakness and hypokalemia. 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 Suspect Cardiac or PAULA. Increased bilirubin is concerning from 2s to 8.2 on admission, INR 1.42 on admission with MELD-Na 20. - PVT: Seen on admission CT, Doppler did not reveal any thrombus. Abd Doppler reviewed: No obvious thrombus, patent vessels. Splenomegaly with varices. MRCP with Abd MRI reviewed with severe dilation of proximal CBD 16mm and normal distal CBD 3mm possibly due to CBD stricture. Pt is extremely high risk for complications with ERCP/EUS with extensive co-morbidities. Cardiology consulted and agree pt very high risk. - EV: Last EGD 4 yrs ago, unknown results - HCC: No masses seen on admission CT - Ascites: On Spironolactone and Furosemide though not in typical ratio - Hepatic Encephalopathy: Fluctuating level of consciousness, previously. Now stable for days with addition of rifaximin. 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 Freitas; please see attestation for further recs/changes
== END 2018-08-30 18:03 | disposition home health service (06) | DRG 280 ==
LOC: ED 20:57 → ERH 22:57 → 2RNO 08-05 02:30 → 2RSO 08-18 14:43 → 5RNO 08-24 21:17
PROVIDERS: ADMIT Internal Medicine; ATTEND Internal Medicine
PROC: 5A09357 Assistance with Respiratory Ventilation, Less than 24 Consecutive Hours, Continuous Positive Airway Pressure (ICD-10-PCS; principal; 2018-08-12)
DX: I21.4 Non-ST elevation (NSTEMI) myocardial infarction (principal); I81 Portal vein thrombosis; I13.0 Hypertensive heart and chronic kidney disease with heart failure and stage 1 through stage 4 chronic kidney disease, or unspecified chronic kidney disease; I50.32 Chronic diastolic (congestive) heart failure; I42.9 Cardiomyopathy, unspecified; N39.0 Urinary tract infection, site not specified; E87.3 Alkalosis; E87.1 Hypo-osmolality and hyponatremia; J44.1 Chronic obstructive pulmonary disease with (acute) exacerbation; M48.54XA Collapsed vertebra, not elsewhere classified, thoracic region, initial encounter for fracture; R64 Cachexia; E44.0 Moderate protein-calorie malnutrition; K76.6 Portal hypertension; F05 Delirium due to known physiological condition; R18.8 Other ascites; K74.69 Other cirrhosis of liver; E87.6 Hypokalemia; N18.9 Chronic kidney disease, unspecified; E11.22 Type 2 diabetes mellitus with diabetic chronic kidney disease; E03.9 Hypothyroidism, unspecified; G47.33 Obstructive sleep apnea (adult) (pediatric); I27.20 Pulmonary hypertension, unspecified; I35.0 Nonrheumatic aortic (valve) stenosis; I25.10 Atherosclerotic heart disease of native coronary artery without angina pectoris; B96.4 Proteus (mirabilis) (morganii) as the cause of diseases classified elsewhere; M48.04 Spinal stenosis, thoracic region; M48.061 Spinal stenosis, lumbar region without neurogenic claudication; R62.7 Adult failure to thrive; E11.65 Type 2 diabetes mellitus with hyperglycemia; K72.90 Hepatic failure, unspecified without coma; D69.59 Other secondary thrombocytopenia; K59.00 Constipation, unspecified; R04.0 Epistaxis; B95.2 Enterococcus as the cause of diseases classified elsewhere; Z16.21 Resistance to vancomycin; F03.90 Unspecified dementia, unspecified severity, without behavioral disturbance, psychotic disturbance, mood disturbance, and anxiety; Z66 Do not resuscitate; I89.0 Lymphedema, not elsewhere classified; M43.16 Spondylolisthesis, lumbar region; Z68.20 Body mass index [BMI] 20.0-20.9, adult; Z87.11 Personal history of peptic ulcer disease; Z95.5 Presence of coronary angioplasty implant and graft